=== PATIENT | female | born 1970 | race African-American/Black ===

== ENCOUNTER → 2018-04-24 | Outpatient (CLI) | payer OTHER | END | disposition home or self-care (01) | LOC: PF 10:35 | DX: J45.909 Unspecified asthma, uncomplicated (principal) | CPT/HCPCS: 94010 ==

== ENCOUNTER 2018-07-12 08:22 | Inpatient (IN) | payer OTHER ==
[~2018-07-12] VITALS: Ht 160 cm; Wt 108.9 kg
[2018-07-12] MEDS ORDERED: LISI1TAB3 PO (08:52)
[2018-07-12] MEDS ORDERED: OXCA300T19 PO ×2 (08:52→15:53)
[2018-07-12] MEDS ORDERED: TOPI25TA7 PO (08:52)
--- NOTE | 2018-07-12 09:12 | PHYS DOC ---
Past Medical History Past Medical History: Hypertension, Seizure Additional Past Medical Histor: ulcers Past Surgical History: Smoking: Cigarettes Alcohol Use: None Drug Use: None Adult General Chief Complaint Chief Complaint: ABDOMINAL PAIN HPI HPI 47-year-old female presents to ER via EMS for complaints of increase in abdominal pain which started in January of this year. Patient reports today she has had 2 episodes of vomiting and 2 episodes of diarrhea. Patient denies urinary symptoms, fever or chills, chest pain, or palpitations. She reports she has been feeling bloated in abd in past couple of days. She denies any lower back pain. Pt reports is premenopausal and LMP was 05/14. She is 1/2ppd cigarette smoker. She denies etoh/illicit drugs. RN reports pt had told her she is scheduled for scope in July as pt has hx of ulcers and this was scheduled for further eval. Review of Systems Review of Systems Constitutional: Denies fever or chills [] Eyes: Denies change in visual acuity, redness, or eye pain [] HENT: Denies nasal congestion or sore throat [] Respiratory: Denies cough or shortness of breath [] Cardiovascular: Denies CP/palpitations GI: Denies bloody stools. Reports mid abd pain with N/V/D and abd bloating : Denies dysuria or hematuria [] Musculoskeletal: Denies back pain or joint pain [] Integument: Denies swelling, rash or skin lesions [] Neurologic: Denies headache, focal weakness or sensory changes [] All other systems were reviewed and found to be within normal limits, except as documented in this note. Current Medications Current Medications Current Medications Medications (Trade) Dose Ordered Sig/Ashia Start Time Stop Time Status Last Admin Dose Admin Dicyclomine HCl (Bentyl) 20 mg 1X ONCE 07/12/18 09:15 07/12/18 09:16 DC 07/12/18 10:44 20 MG Info (CONTRAST GIVEN -- Rx MONITORING) 1 each PRN DAILY PRN 07/12/18 10:45 07/14/18 10:44 Iohexol (Omnipaque 300 Mg/ml) 75 ml 1X ONCE 07/12/18 10:30 07/12/18 10:32 DC 07/12/18 10:30 60 ML Ondansetron HCl (Zofran) 4 mg 1X ONCE 07/12/18 09:15 07/12/18 09:16 DC 07/12/18 09:43 4 MG Sodium Chloride 1,000 ml @ 1,000 mls/hr 1X ONCE 07/12/18 09:15 07/12/18 10:14 DC 07/12/18 09:37 1,000 MLS/HR Allergies Allergies Allergies Coded Allergies Type Severity Reaction Last Updated Verified No Known Drug Allergies 07/12/18 No Physical Exam Physical Exam Constitutional: Well developed, well nourished, no acute distress, non-toxic appearance. Appears fatigued on initial exam- clear speech HENT: Normocephalic, atraumatic, bilateral ears normal,mucous membranes pink/ moist, no oral exudates, nose normal. [] Eyes: PERRLA, no nystagmus, conjunctiva normal, no discharge. [] Neck: Normal range of motion, no tenderness, supple Cardiovascular:Heart rate regular rhythm, no murmur [] Lungs & Thorax: Bilateral breath sounds clear to auscultation. Resp. equal/ nonlabored Abdomen: Bowel sounds normal, soft/obese- no distention/rigidity, diffuse tenderness in all abd with increased c/o pain mid umbilical, no rebound tenderness, no masses, no pulsatile masses. [] Skin: Warm, dry, no erythema, no rash. [] Back: No tenderness, no CVA tenderness. [] Extremities: No tenderness, no cyanosis, no clubbing, ROM intact, no edema. [] Neurologic: Alert and oriented X 3, normal motor function, normal sensory function, no focal deficits noted. [] Psychologic: Affect normal, judgement normal, mood normal. [] Current Patient Data Vital Signs Vital Signs Date Time Temp Pulse Resp B/P (MAP) Pulse Ox O2 Delivery O2 Flow Rate FiO2 07/12/18 08:52 97.8 103 20 137/82 (100) 99 Room Air 97.8 Lab Values Laboratory Tests Test 07/12/18 09:55 07/12/18 10:34 07/12/18 10:47 White Blood Count 19.9 x10^3/uL (4.0-11.0) H Red Blood Count 4.88 x10^6/uL (3.50-5.40) Hemoglobin 12.9 g/dL (12.0-15.5) Hematocrit 38.2 % (36.0-47.0) Mean Corpuscular Volume 78 fL (79-100) L Mean Corpuscular Hemoglobin 26 pg (25-35) Mean Corpuscular Hemoglobin Concent 34 g/dL (31-37) Red Cell Distribution Width 17.7 % (11.5-14.5) H Platelet Count 340 x10^3/uL (140-400) Neutrophils (%) (Auto) 91 % (31-73) H Lymphocytes (%) (Auto) 6 % (24-48) L Monocytes (%) (Auto) 3 % (0-9) Eosinophils (%) (Auto) 1 % (0-3) Basophils (%) (Auto) 0 % (0-3) Neutrophils # (Auto) 18.1 x10^3uL (1.8-7.7) H Lymphocytes # (Auto) 1.1 x10^3/uL (1.0-4.8) Monocytes # (Auto) 0.5 x10^3/uL (0.0-1.1) Eosinophils # (Auto) 0.1 x10^3/uL (0.0-0.7) Basophils # (Auto) 0.1 x10^3/uL (0.0-0.2) Segmented Neutrophils % 79 % (35-66) H Band Neutrophils % 15 % (0-9) H Lymphocytes % 4 % (24-48) L Monocytes % 2 % (0-10) Platelet Estimate Adequate (ADEQUATE) Polychromasia Slight Anisocytosis Slight Microcytosis Slight Sodium Level 141 mmol/L (136-145) Potassium Level 3.3 mmol/L (3.5-5.1) L Chloride Level 105 mmol/L (98-107) Carbon Dioxide Level 23 mmol/L (21-32) Anion Gap 13 (6-14) Blood Urea Nitrogen 15 mg/dL (7-20) Creatinine 1.3 mg/dL (0.6-1.0) H Estimated GFR (Cockcroft-Gault) 53.6 BUN/Creatinine Ratio 12 (6-20) Glucose Level 147 mg/dL (70-99) H Lactic Acid Level 1.7 mmol/L (0.4-2.0) Calcium Level 10.0 mg/dL (8.5-10.1) Magnesium Level 2.5 mg/dL (1.8-2.4) H Total Bilirubin 0.2 mg/dL (0.2-1.0) Aspartate Amino Transferase (AST) 12 U/L (15-37) L Alanine Aminotransferase (ALT) 17 U/L (14-59) Alkaline Phosphatase 135 U/L (46-116) H Total Protein 8.4 g/dL (6.4-8.2) H Albumin 3.7 g/dL (3.4-5.0) Albumin/Globulin Ratio 0.8 (1.0-1.7) L Lipase 169 U/L (73-393) Urine Collection Type Unknown Urine Color Yellow Urine Clarity Cloudy Urine pH 6.0 Urine Specific Sidney >=1.030 Urine Protein 100 mg/dL (NEG-TRACE) Urine Glucose (UA) Negative mg/dL (NEG) Urine Ketones (Stick) Trace mg/dL (NEG) Urine Blood Negative (NEG) Urine Nitrite Negative (NEG) Urine Bilirubin Small (NEG) Urine Urobilinogen Dipstick 1.0 mg/dL (0.2 mg/dL) Urine Leukocyte Esterase Small (NEG) Urine RBC 1-2 /HPF (0-2) Urine WBC 11-20 /HPF (0-4) Urine Squamous Epithelial Cells Many /LPF Urine Bacteria Many /HPF (0-FEW) Urine Mucus Marked /LPF POC Urine HCG, Qualitative Hcg negative (Negative) Laboratory Tests 07/12/18 09:55 Laboratory Tests 07/12/18 09:55 EKG EKG [] Radiology/Procedures Radiology/Procedures CT of the abdomen and pelvis with IV contrast, 07/12/2015: HISTORY: Abdominal pain, nausea and vomiting Multidetector CT imaging was performed following an IV bolus injection of iodinated contrast material. No oral contrast material was administered for this study. No hepatic abnormality is detected. There are small foci of increased density within the dependent aspect of the gallbladder compatible with gallstones. No gallbladder wall thickening or pericholecystic edema is seen. The pancreas is unremarkable. The spleen is of normal size. It contains multiple calcified granulomata. There are 2 intrarenal calculi in the lower pole of the left kidney. The largest of these measures 1 cm. The renal collecting systems and ureters are not dilated. There is a low-density lesion in the lateral aspect of the right kidney measuring approximately 1.[address] number is 25-30 Hounsfield units which is higher than a simple cyst. This is probably a complicated cyst, although a low-density solid mass cannot be entirely excluded. There are several other smaller subcentimeter lesions in both kidneys which are too small to characterize, but are probably cysts. The abdominal aorta is unremarkable. No abdominal or pelvic adenopathy is seen. The uterus is enlarged and contains several masses with irregular rim-like calcification. The appearance is that of a fibroid uterus. There is mural thickening involving the colon at the level of the ileocecal valve and proximal ascending colon. The appendix is not clearly visualized. A dilated appendix is not evident. Several mildly enlarged mesenteric lymph nodes are noted in this region. The small bowel loops proximal to this level are mildly prominent and fluid-filled. No free air is evident in the abdomen. There does appear to be a small amount of free fluid in the pelvis. There is a small umbilical hernia containing only fat. IMPRESSION: 1. Mural thickening involving the colon in the ileocecal valve region raising the possibility of colonic malignancy. An inflammatory process cannot be excluded. There is mild associated dilatation of the distal small bowel and mild mesenteric adenopathy at this level. 2. Small amount of free fluid in the pelvis. 3. Cholelithiasis. 4. Nonobstructing left intrarenal calculi. 5. Enlarged fibroid uterus. 6. Probable renal cysts. PQRS Compliance Statement: One or more of the following individualized dose reduction techniques were utilized for this examination: 1. Automated exposure control 2. Adjustment of the mA and/or kV according to patient size 3. Use of iterative reconstruction technique Electronically signed by: Bam Lorenzana MD (07/12/2018 11:47 AM) [facility] DICTATED and SIGNED BY: BAM LORENZANA MD DATE: 07/12/18 1129 Course & Med Decision Making Course & Med Decision Making Pertinent Labs and Imaging studies reviewed. (See chart for details) 1218: Discussed test results with patient along with CT results with thickening in colon w/dilation of distal sm. bowel and mild mesenteric adenopathy, sm. amt of free fld in pelvis, cholelithiasis, and nonobstructing lt intrarenal calculi. WBCs were elevated at 19.9 with 15 bands- lactic acid NL at 1.7- UA neg. nitrates/blood sm. leuks w/11-20 WBCs. Neg. HCG. Discussed admission and pt is agreeable with plan. Will start IV Flagyl and Cipro. Pt remains nontoxic in appearance with BP 138/65 HR 98. Patient has had no episodes of vomiting while in the ER but has been incontinent of diarrhea. Spoke with Dr. Ryan, hospitalist and discussed pt's case and admission plan. Dragon Disclaimer Dragon Disclaimer This electronic medical record was generated, in whole or in part, using a voice recognition dictation system. Departure Departure Impression: Primary Impression: Abdominal pain Additional Impressions: Leukocytosis Bandemia Nausea vomiting and diarrhea UTI (urinary tract infection) Disposition: ADMITTED INPATIENT Admitting Physician: Letitia Ryan Condition: STABLE Referrals: JOSE ANGEL BLOOM (PCP) Problem Qualifiers [facility]ERT [facility] [employer] Jul 12, 2018 09:12
[2018-07-12] MEDS ORDERED: ONDANSETRON PF 4 MG/2 ML VIAL. IV ONE (09:15)
[2018-07-12] MEDS ORDERED: IV NORMAL SALINE 1000ML BAG 1,000 ML IV ONE (09:15)
[2018-07-12] MEDS ORDERED: DICYCLOMINE 20 MG/2 ML AMPUL. IM ONE (09:15)
[2018-07-12 10:01] LABS: BASO # 0.1 x10^3/uL (0.0-0.2); BASO % 0 % (0-3); EOS # 0.1 x10^3/uL (0.0-0.7); EOS % 1 % (0-3); HEMATOCRIT 38.2 % (36.0-47.0); HEMOGLOBIN 12.9 g/dL (12.0-15.5); LYMPH # 1.1 x10^3/uL (1.0-4.8); LYMPH % 6 % (24-48); MEAN CORPUSCULAR HEMOGLOBIN 26 pg (25-35); MEAN CORPUSCULAR HGB CONC 34 g/dL (31-37); MEAN CORPUSCULAR VOLUME 78 fL (79-100); MONO # 0.5 x10^3/uL (0.0-1.1); MONO % 3 % (0-9); NEUT # 18.1 x10^3uL (1.8-7.7); NEUT % 91 % (31-73); PLATELET COUNT 340 x10^3/uL (140-400); RED BLOOD COUNT 4.88 x10^6/uL (3.50-5.40); RED CELL DISTRIBUTION WIDTH 17.7 % (11.5-14.5); WHITE BLOOD COUNT 19.9 x10^3/uL (4.0-11.0)
[2018-07-12 10:26] LABS: CREATININE 1.3 mg/dL (0.6-1.0); GFR 53.6; POTASSIUM 3.3 mmol/L (3.5-5.1)
[2018-07-12 10:28] LABS: ALBUMIN 3.7 g/dL (3.4-5.0); ALBUMIN/GLOBULIN RATIO 0.8 (1.0-1.7); MAGNESIUM 2.5 mg/dL (1.8-2.4); TOTAL BILIRUBIN 0.2 mg/dL (0.2-1.0); TOTAL PROTEIN 8.4 g/dL (6.4-8.2)
[2018-07-12] MEDS ORDERED: IOHEXOL 300 MG/ML 100ML VIAL. IV ONE (10:30)
[2018-07-12] MEDS ORDERED: CONTRAST GIVEN. MC PRN (10:45)
[2018-07-12 10:59] LABS: BILIRUBIN,URINE SMALL (NEG); CLARITY,URINE CLOUDY; COLOR,URINE YELLOW; NITRITE,URINE NEGATIVE (NEG); PROTEIN,URINE 100 mg/dL (NEG-TRACE)
[2018-07-12 11:06] LABS: SQUAMOUS EPITHELIAL CELL,UR MANY /LPF
[2018-07-12 11:07] LABS: BACTERIA,URINE MANY /HPF (0-FEW)
[2018-07-12 11:26] LABS: % BANDS 15 % (0-9); % MONOS 2 % (0-10)
[2018-07-12 11:27] LABS: % LYMPHS 4 % (24-48); % SEGS 79 % (35-66); ANISOCYTOSIS SLIGHT; MICROCYTOSIS SLIGHT; PLT ESTIMATE ADEQUATE (ADEQUATE); POLYCHROMASIA SLIGHT
--- NOTE | 2018-07-12 11:51 | RAD ---
CT of the abdomen and pelvis with IV contrast, 07/12/2015: HISTORY: Abdominal pain, nausea and vomiting Multidetector CT imaging was performed following an IV bolus injection of iodinated contrast material. No oral contrast material was administered for this study. No hepatic abnormality is detected. There are small foci of increased density within the dependent aspect of the gallbladder compatible with gallstones. No gallbladder wall thickening or pericholecystic edema is seen. The pancreas is unremarkable. The spleen is of normal size. It contains multiple calcified granulomata. There are 2 intrarenal calculi in the lower pole of the left kidney. The largest of these measures 1 cm. The renal collecting systems and ureters are not dilated. There is a low-density lesion in the lateral aspect of the right kidney measuring approximately 1.[address] number is 25-30 Hounsfield units which is higher than a simple cyst. This is probably a complicated cyst, although a low-density solid mass cannot be entirely excluded. There are several other smaller subcentimeter lesions in both kidneys which are too small to characterize, but are probably cysts. The abdominal aorta is unremarkable. No abdominal or pelvic adenopathy is seen. The uterus is enlarged and contains several masses with irregular rim-like calcification. The appearance is that of a fibroid uterus. There is mural thickening involving the colon at the level of the ileocecal valve and proximal ascending colon. The appendix is not clearly visualized. A dilated appendix is not evident. Several mildly enlarged mesenteric lymph nodes are noted in this region. The small bowel loops proximal to this level are mildly prominent and fluid-filled. No free air is evident in the abdomen. There does appear to be a small amount of free fluid in the pelvis. There is a small umbilical hernia containing only fat. IMPRESSION: 1. Mural thickening involving the colon in the ileocecal valve region raising the possibility of colonic malignancy. An inflammatory process cannot be excluded. There is mild associated dilatation of the distal small bowel and mild mesenteric adenopathy at this level. 2. Small amount of free fluid in the pelvis. 3. Cholelithiasis. 4. Nonobstructing left intrarenal calculi. 5. Enlarged fibroid uterus. 6. Probable renal cysts. PQRS Compliance Statement: One or more of the following individualized dose reduction techniques were utilized for this examination: 1. Automated exposure control 2. Adjustment of the mA and/or kV according to patient size 3. Use of iterative reconstruction technique Electronically signed by: Yunior Lorenzana MD (07/12/2018 11:47 AM) [facility]
--- NOTE | 2018-07-12 13:17 | HP ---
ADMIT DATE: 07/12/2018 CHIEF COMPLAINT: Abdominal pain. HISTORY OF PRESENT ILLNESS: The patient is a pleasant 47-year-old female who presented to the Emergency Room with abdominal pain. We scanned her belly. She appears to have colitis. We are going to admit the patient and consult GI. It should be noted that she has associated nausea, vomiting, diarrhea that has been occurring off and on for a couple of days, rated at 10/10. PAST MEDICAL HISTORY: Obesity, hypertension, hyperlipidemia, allergic rhinitis, , tobacco abuse. ALLERGIES: CODEINE. FAMILY HISTORY: Diabetes. SOCIAL HISTORY: She smokes. No drink or drugs. She states she is disabled and takes care of her son. MEDICATIONS: Reviewed, please refer to the MRAD. REVIEW OF SYSTEMS: GENERAL: No history of weight change, weakness or fevers. SKIN: No bruising, hair changes or rashes. EYES: No blurred, double or loss of vision. NOSE AND THROAT: No history of nosebleeds, hoarseness or sore throat. HEART: No history of palpitations, chest pain or shortness of breath on exertion. LUNGS: Denies cough, hemoptysis, wheezing or shortness of breath. GASTROINTESTINAL: She complains of abdominal pain. GENITOURINARY: No history of frequency, urgency, hesitancy or nocturia. NEUROLOGIC: Denies history of numbness, tingling, tremor or weakness. PSYCHIATRIC: No history of panic, anxiety or depression. ENDOCRINE: No history of heat or cold intolerance, polyuria or polydipsia. EXTREMITIES: Denies muscle weakness, joint pain, pain on walking or stiffness. PHYSICAL EXAMINATION: VITAL SIGNS: Temperature afebrile, pulse 100, respirations 20, blood pressure 137/82. GENERAL: She is alert, cooperative in the ER. HEART: Normal S1, S2. LUNGS: Clear. ABDOMEN: Soft and tender. EXTREMITIES: Trace edema. SKIN: No rash. ENDOCRINE: No thyromegaly. LYMPHATICS: No cervical nodes. HEMATOPOIETIC: No bruising. LABORATORY DATA: White count is 20. Potassium is 3.3. CT shows colitis, maybe even a malignancy. ASSESSMENT AND PLAN: Colitis. The patient is being admitted. We will start IV antibiotics. Consult GI. Replace her potassium. Home meds, IV fluids. MARA TALBERT DO DR: Sang JOB#: [id number] / [id number]
[2018-07-12] MEDS: CIPROFLOXACIN 400MG PREMIX 200 ML IV SCH ×3 (13:30→23:00)
[2018-07-12] MEDS ORDERED: CETI10TA22 PO (15:53)
[2018-07-12] MEDS ORDERED: LUBI8CAP4 PO (15:53)
[2018-07-12] MEDS ORDERED: POLY17PO29 PO (15:53)
[2018-07-12] MEDS ORDERED: TOPI100T8 PO (15:53)
[2018-07-12] MEDS ORDERED: ATOR20TA58 PO (15:53)
[2018-07-12] MEDS: CETIRIZINE HCL 10 MG TABLET. PO SCH (18:04)
[2018-07-12 19:00] VITALS: BP 92/46
[2018-07-12] MEDS ORDERED: KETOROLAC 30 MG/ML VIAL. IV PRN (20:00)
[2018-07-12] MEDS: OXcarbazepine 300 MG TABLET PO SCH (20:23)
[2018-07-12] MEDS: TOPIRAMATE 25 MG TABLET. PO SCH (20:24)
[2018-07-12] MEDS: LUBIPROSTONE 8 MCG CAPSULE PO SCH ×3 (20:24→21:00)
[2018-07-12] MEDS: POLYETHYLENE GLYCOL 3350 17 GM PACKET. PO SCH (20:25)
[2018-07-12] MEDS: ATORVASTATIN CALCIUM 20 MG TABLET PO SCH ×3 (20:34→23:03)
[2018-07-12] MEDS: MORPHINE SULFATE 2 MG/ML VIAL. IV PRN (20:50)
[2018-07-12 23:00] VITALS: BP 98/59
[2018-07-13 02:40] VITALS: BP 92/57
[2018-07-13 06:30] LABS: BASO % 0 % (0-3); EOS # 0.2 x10^3/uL (0.0-0.7); EOS % 2 % (0-3); HEMATOCRIT 30.9 % (36.0-47.0); HEMOGLOBIN 10.1 g/dL (12.0-15.5); LYMPH # 1.8 x10^3/uL (1.0-4.8); LYMPH % 20 % (24-48); MEAN CORPUSCULAR HEMOGLOBIN 26 pg (25-35); MEAN CORPUSCULAR HGB CONC 33 g/dL (31-37); MEAN CORPUSCULAR VOLUME 78 fL (79-100); MONO # 0.5 x10^3/uL (0.0-1.1); MONO % 5 % (0-9); NEUT # 6.5 x10^3uL (1.8-7.7); NEUT % 72 % (31-73); PLATELET COUNT 276 x10^3/uL (140-400); RED BLOOD COUNT 3.94 x10^6/uL (3.50-5.40); RED CELL DISTRIBUTION WIDTH 17.8 % (11.5-14.5)
[2018-07-13 07:00] VITALS: BP 112/69
[2018-07-13 07:00] LABS: ALBUMIN/GLOBULIN RATIO 0.8 (1.0-1.7); CALCIUM 9.5 mg/dL (8.5-10.1); CREATININE 1.1 mg/dL (0.6-1.0); POTASSIUM 3.2 mmol/L (3.5-5.1); TOTAL BILIRUBIN 0.2 mg/dL (0.2-1.0)
[2018-07-13] MEDS: CETIRIZINE HCL 10 MG TABLET. PO SCH (08:23)
[2018-07-13] MEDS: OXcarbazepine 300 MG TABLET PO SCH ×2 (08:23→21:33)
[2018-07-13] MEDS: LUBIPROSTONE 8 MCG CAPSULE PO SCH (08:23)
[2018-07-13] MEDS: LACTOBACILLUS RHAMNOSUS GG 1 CAPSULE. PO SCH ×2 (08:23→21:33)
[2018-07-13] MEDS: LISINOPRIL 10 MG TABLET PO SCH (08:24)
[2018-07-13] MEDS: hydroCHLOROthiazide 12.5 MG CAPSULE PO SCH (08:24)
[2018-07-13] MEDS: TOPIRAMATE 25 MG TABLET. PO SCH ×2 (08:24→21:33)
[2018-07-13] MEDS: POLYETHYLENE GLYCOL 3350 17 GM PACKET. PO SCH ×3 (08:29→21:00)
[2018-07-13] MEDS ORDERED: LOPERAMIDE 2 MG CAPSULE PO PRN (08:45)
[2018-07-13] MEDS ORDERED: POTASSIUM CHLORIDE 20 MEQ TABLET.ER. PO ONE (08:45)
[2018-07-13] MEDS ORDERED: IV NORMAL SALINE 1000ML BAG 1,000 ML IV ONE (09:00)
[2018-07-13 11:00] VITALS: BP 109/60
[2018-07-13] MEDS: CIPROFLOXACIN 400MG PREMIX 200 ML IV SCH ×2 (11:50→23:00)
[2018-07-13 15:00] VITALS: BP 107/62
[2018-07-13] MEDS: MORPHINE SULFATE 2 MG/ML VIAL. IV PRN (16:10)
--- NOTE | 2018-07-13 16:36 | PDOC2 ---
GI CONSULT Reason For Consult: abnormal CT HPI: HPI: 47-year-old female presents to ER via EMS for complaints of increase in abdominal pain which started in January of this year. She was seen by her PCP at who prescribed a med for 3 months to treat presumed ulcers. her symptoms did not improve. She was seen by GI who ordered unremarkable plain films. She is scheduled for EGD/Colon at in July Patient reports that she has had 2 episodes of vomiting and 2 episodes of diarrhea on DOA. Patient denies urinary symptoms, fever or chills, chest pain , or palpitations. She reports she has been feeling bloated in abd in past couple of days. She denies any lower back pain. Pt reports is premenopausal and LMP was 05/14. Labs initially showed leukocytosis that has resolved. CT demonstrated CT of the abdomen and pelvis with IV contrast, 07/12/2015: Mural thickening involving the colon in the ileocecal valve region raising the possibility of colonic malignancy. An inflammatory process cannot be excluded. There is mild associated dilatation of the distal small bowel and mild mesenteric adenopathy at this level. Cholelithiasis. Nonobstructing left intrarenal calculi. Enlarged fibroid uterus. Probable renal cysts. PMH: PMH: Past Medical History Past Medical History: Hypertension, Seizure Additional Past Medical Histor: ulcers(presumed) Past Surgical History: FMH + CRC in her father in his 70s All ASA FH: Family History: Cancer Social History: Smoke: <1 pack per day ALCOHOL: none Drugs: None ROS: Review of Systems Review of Systems Constitutional: Denies fever or chills [] Eyes: Denies change in visual acuity, redness, or eye pain [] HENT: Denies nasal congestion or sore throat [] Respiratory: Denies cough or shortness of breath [] Cardiovascular: Denies CP/palpitations GI: Denies bloody stools. Reports mid abd pain with N/V/D and abd bloating : Denies dysuria or hematuria [] Musculoskeletal: Denies back pain or joint pain [] Integument: Denies swelling, rash or skin lesions [] Neurologic: Denies headache, focal weakness or sensory changes [] VItals: Vitals: Vital Signs Date Time Temp Pulse Resp B/P (MAP) Pulse Ox O2 Delivery O2 Flow Rate FiO2 9/16/18 16:10 Room Air 07/13/18 15:00 98.3 70 18 107/62 (77) 99 98.3 Labs: Labs: Laboratory Tests Test 07/13/18 05:15 White Blood Count 9.0 x10^3/uL (4.0-11.0) Red Blood Count 3.94 x10^6/uL (3.50-5.40) Hemoglobin 10.1 g/dL (12.0-15.5) Hematocrit 30.9 % (36.0-47.0) Mean Corpuscular Volume 78 fL (79-100) Mean Corpuscular Hemoglobin 26 pg (25-35) Mean Corpuscular Hemoglobin Concent 33 g/dL (31-37) Red Cell Distribution Width 17.8 % (11.5-14.5) Platelet Count 276 x10^3/uL (140-400) Neutrophils (%) (Auto) 72 % (31-73) Lymphocytes (%) (Auto) 20 % (24-48) Monocytes (%) (Auto) 5 % (0-9) Eosinophils (%) (Auto) 2 % (0-3) Basophils (%) (Auto) 0 % (0-3) Neutrophils # (Auto) 6.5 x10^3uL (1.8-7.7) Lymphocytes # (Auto) 1.8 x10^3/uL (1.0-4.8) Monocytes # (Auto) 0.5 x10^3/uL (0.0-1.1) Eosinophils # (Auto) 0.2 x10^3/uL (0.0-0.7) Basophils # (Auto) 0.0 x10^3/uL (0.0-0.2) Sodium Level 139 mmol/L (136-145) Potassium Level 3.2 mmol/L (3.5-5.1) Chloride Level 105 mmol/L (98-107) Carbon Dioxide Level 24 mmol/L (21-32) Anion Gap 10 (6-14) Blood Urea Nitrogen 11 mg/dL (7-20) Creatinine 1.1 mg/dL (0.6-1.0) Estimated GFR (Cockcroft-Gault) 65.0 BUN/Creatinine Ratio 10 (6-20) Glucose Level 98 mg/dL (70-99) Calcium Level 9.5 mg/dL (8.5-10.1) Total Bilirubin 0.2 mg/dL (0.2-1.0) Aspartate Amino Transf (AST/SGOT) 12 U/L (15-37) Alanine Aminotransferase (ALT/SGPT) 14 U/L (14-59) Alkaline Phosphatase 105 U/L (46-116) Total Protein 7.0 g/dL (6.4-8.2) Albumin 3.0 g/dL (3.4-5.0) Albumin/Globulin Ratio 0.8 (1.0-1.7) Imaging: Imaging: CT of the abdomen and pelvis with IV contrast, 07/12/2015: HISTORY: Abdominal pain, nausea and vomiting Multidetector CT imaging was performed following an IV bolus injection of iodinated contrast material. No oral contrast material was administered for this study. No hepatic abnormality is detected. There are small foci of increased density within the dependent aspect of the gallbladder compatible with gallstones. No gallbladder wall thickening or pericholecystic edema is seen. The pancreas is unremarkable. The spleen is of normal size. It contains multiple calcified granulomata. There are 2 intrarenal calculi in the lower pole of the left kidney. The largest of these measures 1 cm. The renal collecting systems and ureters are not dilated. There is a low-density lesion in the lateral aspect of the right kidney measuring approximately 1.[address] number is 25-30 Hounsfield units which is higher than a simple cyst. This is probably a complicated cyst, although a low-density solid mass cannot be entirely excluded. There are several other smaller subcentimeter lesions in both kidneys which are too small to characterize, but are probably cysts. The abdominal aorta is unremarkable. No abdominal or pelvic adenopathy is seen. The uterus is enlarged and contains several masses with irregular rim-like calcification. The appearance is that of a fibroid uterus. There is mural thickening involving the colon at the level of the ileocecal valve and proximal ascending colon. The appendix is not clearly visualized. A dilated appendix is not evident. Several mildly enlarged mesenteric lymph nodes are noted in this region. The small bowel loops proximal to this level are mildly prominent and fluid-filled. No free air is evident in the abdomen. There does appear to be a small amount of free fluid in the pelvis. There is a small umbilical hernia containing only fat. IMPRESSION: 1. Mural thickening involving the colon in the ileocecal valve region raising the possibility of colonic malignancy. An inflammatory process cannot be excluded. There is mild associated dilatation of the distal small bowel and mild mesenteric adenopathy at this level. 2. Small amount of free fluid in the pelvis. 3. Cholelithiasis. 4. Nonobstructing left intrarenal calculi. 5. Enlarged fibroid uterus. 6. Probable renal cysts. PE: GEN: NAD HEENT: Atraumatic, PERRLA LUNGS: CTAB HEART: RRR, no murmurs ABD: NABS, S/ND/TTO Epigastric and RUQ EXTREMITY: No edema SKIN: No rashes, no jaundice NEURO/PSYCH: A & O 3 A/P: A/P: A) 1) Epigastric and RUQ pain 2) Abnormal CT 3) Cholelithiasis 4) FMH CRC in father in his 70s 5) N/V P) 1) Favor EGD/Colon to eval. She has been on clear liquids in house and wants to see if the procedures can be done tomorrow, Will schedule and d/w ALDO Leslie nd, MD Jul 13, 2018 16:36
[2018-07-13] MEDS ORDERED: 0.9 % SODIUM CHLORIDE 10 ML DISP.SYRIN. IV PRN ×2 (16:45)
[2018-07-13] MEDS ORDERED: BISACODYL 5 MG TABLET.DR. PO ONE (17:00)
[2018-07-13 19:00] VITALS: BP 109/67
[2018-07-13] MEDS ORDERED: POLYETHYLENE GLYCOL 3350 238 GM POWDER PO ONE (19:00)
--- NOTE | 2018-07-13 21:11 | PDOC ---
PROGRESS NOTES Chief Complaint Chief Complaint Abdominal pain with abnormal CT (?malignancy?) Hypertension, Seizure ulcers(presumed) History of Present Illness History of Present Illness Pt seen and examined Dw RN GI note reviewed Vitals Vitals Vital Signs Date Time Temp Pulse Resp B/P (MAP) Pulse Ox O2 Delivery O2 Flow Rate FiO2 07/13/18 19:00 98.5 78 18 109/67 (81) 100 Room Air 98.5 Physical Exam General: Alert, Oriented X3 Heart: Regular rate, Normal S1, Normal S2 Lungs: Clear Abdomen: Normal bowel sounds Extremities: No clubbing, No cyanosis Skin: No rashes, No breakdown Labs LABS Laboratory Tests Test 07/13/18 05:15 White Blood Count 9.0 x10^3/uL (4.0-11.0) Red Blood Count 3.94 x10^6/uL (3.50-5.40) Hemoglobin 10.1 g/dL (12.0-15.5) Hematocrit 30.9 % (36.0-47.0) Mean Corpuscular Volume 78 fL (79-100) Mean Corpuscular Hemoglobin 26 pg (25-35) Mean Corpuscular Hemoglobin Concent 33 g/dL (31-37) Red Cell Distribution Width 17.8 % (11.5-14.5) Platelet Count 276 x10^3/uL (140-400) Neutrophils (%) (Auto) 72 % (31-73) Lymphocytes (%) (Auto) 20 % (24-48) Monocytes (%) (Auto) 5 % (0-9) Eosinophils (%) (Auto) 2 % (0-3) Basophils (%) (Auto) 0 % (0-3) Neutrophils # (Auto) 6.5 x10^3uL (1.8-7.7) Lymphocytes # (Auto) 1.8 x10^3/uL (1.0-4.8) Monocytes # (Auto) 0.5 x10^3/uL (0.0-1.1) Eosinophils # (Auto) 0.2 x10^3/uL (0.0-0.7) Basophils # (Auto) 0.0 x10^3/uL (0.0-0.2) Sodium Level 139 mmol/L (136-145) Potassium Level 3.2 mmol/L (3.5-5.1) Chloride Level 105 mmol/L (98-107) Carbon Dioxide Level 24 mmol/L (21-32) Anion Gap 10 (6-14) Blood Urea Nitrogen 11 mg/dL (7-20) Creatinine 1.1 mg/dL (0.6-1.0) Estimated GFR (Cockcroft-Gault) 65.0 BUN/Creatinine Ratio 10 (6-20) Glucose Level 98 mg/dL (70-99) Calcium Level 9.5 mg/dL (8.5-10.1) Total Bilirubin 0.2 mg/dL (0.2-1.0) Aspartate Amino Transf (AST/SGOT) 12 U/L (15-37) Alanine Aminotransferase (ALT/SGPT) 14 U/L (14-59) Alkaline Phosphatase 105 U/L (46-116) Total Protein 7.0 g/dL (6.4-8.2) Albumin 3.0 g/dL (3.4-5.0) Albumin/Globulin Ratio 0.8 (1.0-1.7) Review of Systems Review of Systems co abd pain co depression Assessment and Plan Assessmemt and Plan Problems Medical Problems: (1) Abdominal pain Status: Acute (2) Bandemia Status: Acute (3) Leukocytosis Status: Acute (4) Nausea vomiting and diarrhea Status: Acute (5) UTI (urinary tract infection) Status: Acute Abdominal pain with abnormal CT (?malignancy?) + Family H/O CRC Hypertension, Seizure ulcers(presumed) Plan EGD/Colonoscopy per Dr Baird PPI IV antibx to cover for possible colitis Labs Bowel probably already prepped as she pretty s been on clears Home meds Will order a CEA level Comment Review of Relevant I have reviewed the following items dawson (where applicable) has been applied. Labs Laboratory Tests Test 07/12/18 09:55 07/12/18 10:34 07/12/18 10:47 07/13/18 05:15 White Blood Count 19.9 x10^3/uL (4.0-11.0) 9.0 x10^3/uL (4.0-11.0) Red Blood Count 4.88 x10^6/uL (3.50-5.40) 3.94 x10^6/uL (3.50-5.40) Hemoglobin 12.9 g/dL (12.0-15.5) 10.1 g/dL (12.0-15.5) Hematocrit 38.2 % (36.0-47.0) 30.9 % (36.0-47.0) Mean Corpuscular Volume 78 fL (79-100) 78 fL (79-100) Mean Corpuscular Hemoglobin 26 pg (25-35) 26 pg (25-35) Mean Corpuscular Hemoglobin Concent 34 g/dL (31-37) 33 g/dL (31-37) Red Cell Distribution Width 17.7 % (11.5-14.5) 17.8 % (11.5-14.5) Platelet Count 340 x10^3/uL (140-400) 276 x10^3/uL (140-400) Neutrophils (%) (Auto) 91 % (31-73) 72 % (31-73) Lymphocytes (%) (Auto) 6 % (24-48) 20 % (24-48) Monocytes (%) (Auto) 3 % (0-9) 5 % (0-9) Eosinophils (%) (Auto) 1 % (0-3) 2 % (0-3) Basophils (%) (Auto) 0 % (0-3) 0 % (0-3) Neutrophils # (Auto) 18.1 x10^3uL (1.8-7.7) 6.5 x10^3uL (1.8-7.7) Lymphocytes # (Auto) 1.1 x10^3/uL (1.0-4.8) 1.8 x10^3/uL (1.0-4.8) Monocytes # (Auto) 0.5 x10^3/uL (0.0-1.1) 0.5 x10^3/uL (0.0-1.1) Eosinophils # (Auto) 0.1 x10^3/uL (0.0-0.7) 0.2 x10^3/uL (0.0-0.7) Basophils # (Auto) 0.1 x10^3/uL (0.0-0.2) 0.0 x10^3/uL (0.0-0.2) Segmented Neutrophils % 79 % (35-66) Band Neutrophils % 15 % (0-9) Lymphocytes % 4 % (24-48) Monocytes % 2 % (0-10) Platelet Estimate Adequate (ADEQUATE) Polychromasia Slight Anisocytosis Slight Microcytosis Slight Sodium Level 141 mmol/L (136-145) 139 mmol/L (136-145) Potassium Level 3.3 mmol/L (3.5-5.1) 3.2 mmol/L (3.5-5.1) Chloride Level 105 mmol/L (98-107) 105 mmol/L (98-107) Carbon Dioxide Level 23 mmol/L (21-32) 24 mmol/L (21-32) Anion Gap 13 (6-14) 10 (6-14) Blood Urea Nitrogen 15 mg/dL (7-20) 11 mg/dL (7-20) Creatinine 1.3 mg/dL (0.6-1.0) 1.1 mg/dL (0.6-1.0) Estimated GFR (Cockcroft-Gault) 53.6 65.0 BUN/Creatinine Ratio 12 (6-20) 10 (6-20) Glucose Level 147 mg/dL (70-99) 98 mg/dL (70-99) Lactic Acid Level 1.7 mmol/L (0.4-2.0) Calcium Level 10.0 mg/dL (8.5-10.1) 9.5 mg/dL (8.5-10.1) Magnesium Level 2.5 mg/dL (1.8-2.4) Total Bilirubin 0.2 mg/dL (0.2-1.0) 0.2 mg/dL (0.2-1.0) Aspartate Amino Transf (AST/SGOT) 12 U/L (15-37) 12 U/L (15-37) Alanine Aminotransferase (ALT/SGPT) 17 U/L (14-59) 14 U/L (14-59) Alkaline Phosphatase 135 U/L (46-116) 105 U/L (46-116) Total Protein 8.4 g/dL (6.4-8.2) 7.0 g/dL (6.4-8.2) Albumin 3.7 g/dL (3.4-5.0) 3.0 g/dL (3.4-5.0) Albumin/Globulin Ratio 0.8 (1.0-1.7) 0.8 (1.0-1.7) Lipase 169 U/L (73-393) Urine Collection Type Unknown Urine Color Yellow Urine Clarity Cloudy Urine pH 6.0 Urine Specific [place] >=1.030 Urine Protein 100 mg/dL (NEG-TRACE) Urine Glucose (UA) Negative mg/dL (NEG) Urine Ketones (Stick) Trace mg/dL (NEG) Urine Blood Negative (NEG) Urine Nitrite Negative (NEG) Urine Bilirubin Small (NEG) Urine Urobilinogen Dipstick 1.0 mg/dL (0.2 mg/dL) Urine Leukocyte Esterase Small (NEG) Urine RBC 1-2 /HPF (0-2) Urine WBC 11-20 /HPF (0-4) Urine Squamous Epithelial Cells Many /LPF Urine Bacteria Many /HPF (0-FEW) Urine Mucus Marked /LPF Bedside Urine HCG, Qualitative Hcg negative (Negative) Laboratory Tests Test 07/13/18 05:15 White Blood Count 9.0 x10^3/uL (4.0-11.0) Red Blood Count 3.94 x10^6/uL (3.50-5.40) Hemoglobin 10.1 g/dL (12.0-15.5) Hematocrit 30.9 % (36.0-47.0) Mean Corpuscular Volume 78 fL (79-100) Mean Corpuscular Hemoglobin 26 pg (25-35) Mean Corpuscular Hemoglobin Concent 33 g/dL (31-37) Red Cell Distribution Width 17.8 % (11.5-14.5) Platelet Count 276 x10^3/uL (140-400) Neutrophils (%) (Auto) 72 % (31-73) Lymphocytes (%) (Auto) 20 % (24-48) Monocytes (%) (Auto) 5 % (0-9) Eosinophils (%) (Auto) 2 % (0-3) Basophils (%) (Auto) 0 % (0-3) Neutrophils # (Auto) 6.5 x10^3uL (1.8-7.7) Lymphocytes # (Auto) 1.8 x10^3/uL (1.0-4.8) Monocytes # (Auto) 0.5 x10^3/uL (0.0-1.1) Eosinophils # (Auto) 0.2 x10^3/uL (0.0-0.7) Basophils # (Auto) 0.0 x10^3/uL (0.0-0.2) Sodium Level 139 mmol/L (136-145) Potassium Level 3.2 mmol/L (3.5-5.1) Chloride Level 105 mmol/L (98-107) Carbon Dioxide Level 24 mmol/L (21-32) Anion Gap 10 (6-14) Blood Urea Nitrogen 11 mg/dL (7-20) Creatinine 1.1 mg/dL (0.6-1.0) Estimated GFR (Cockcroft-Gault) 65.0 BUN/Creatinine Ratio 10 (6-20) Glucose Level 98 mg/dL (70-99) Calcium Level 9.5 mg/dL (8.5-10.1) Total Bilirubin 0.2 mg/dL (0.2-1.0) Aspartate Amino Transf (AST/SGOT) 12 U/L (15-37) Alanine Aminotransferase (ALT/SGPT) 14 U/L (14-59) Alkaline Phosphatase 105 U/L (46-116) Total Protein 7.0 g/dL (6.4-8.2) Albumin 3.0 g/dL (3.4-5.0) Albumin/Globulin Ratio 0.8 (1.0-1.7) Medications Current Medications Sodium Chloride 1,000 ml @ 1,000 mls/hr 1X ONCE IV Last administered on at 09:37; Start 07/12/18 at 09:15; Stop 07/12/18 at 10:14; Status DC Ondansetron HCl (Zofran) 4 mg 1X ONCE IV Last administered on 07/12/18at 09:43 ; Start 07/12/18 at 09:15; Stop 07/12/18 at 09:16; Status DC Dicyclomine HCl (Bentyl) 20 mg 1X ONCE IM Last administered on 07/12/18at 10:44 ; Start 07/12/18 at 09:15; Stop 07/12/18 at 09:16; Status DC Iohexol (Omnipaque 300 Mg/ml) 75 ml 1X ONCE IV Last administered on 07/12/18at 10:30; Start 07/12/18 at 10:30; Stop 07/12/18 at 10:32; Status DC Info (CONTRAST GIVEN -- Rx MONITORING) 1 each PRN DAILY PRN MC SEE COMMENTS; Start 07/12/18 at 10:45; Stop 07/14/18 at 10:44 Metronidazole 100 ml @ 100 mls/hr 1X ONCE IV Last administered on 07/12/18at 13:10; Start 07/12/18 at 12:30; Stop 07/12/18 at 13:29; Status DC Ciprofloxacin/ Dextrose 200 ml @ 200 mls/hr Q12HR IV Last administered on 07/12at 23:00; Start 07/12/18 at 13:30; Stop 07/13/18 at 08:57; Status DC Morphine Sulfate (Morphine Sulfate) 2 mg PRN Q2HR PRN IV SEVERE PAIN Last administered on 07/13/18at 16:10; Start 07/12/18 at 16:00 Atorvastatin Calcium (Lipitor) 20 mg HS PO Last administered on 07/12/18at 21:00 ; Start 07/12/18 at 21:00 Cetirizine HCl (ZyrTEC) 10 mg DAILY PO Last administered on 07/13/18at 08:23; Start 07/12/18 at 16:00 Lubiprostone (Amitiza) 8 mcg BID PO Last administered on 07/13/18at 08:23; Start 07/12/18 at 21:00; Stop 07/13/18 at 08:49; Status DC Lisinopril (Prinivil) 10 mg DAILY PO Last administered on 07/13/18at 08:24; Start 07/13/18 at 09:00 Oxcarbazepine (Trileptal) 300 mg BID PO Last administered on 07/13/18at 08:23; Start 07/12/18 at 21:00; Stop 07/13/18 at 11:19; Status DC Polyethylene Glycol (miraLAX PACKET) 17 gm BID PO Last administered on at 16:00; Start 07/12/18 at 21:00 Topiramate (Topamax) 100 mg BID PO Last administered on 07/13/18at 08:24; Start 07/12/18 at 21:00 Hydrochlorothiazide (Microzide) 12.5 mg DAILY PO Last administered on at 08:24; Start 07/13/18 at 09:00 Ketorolac Tromethamine (Toradol 30mg Vial) 30 mg PRN Q6HRS PRN IV MILD - MODERATE PAIN; Start 07/12/18 at 20:00; Stop 07/17/18 at 19:59 Lactobacillus Rhamnosus (Culturelle) 1 cap BID PO Last administered on at 08:23; Start 07/13/18 at 09:00 Ciprofloxacin/ Dextrose 200 ml @ 200 mls/hr Q12H IV Last administered on at 11:50; Start 07/13/18 at 11:00 Metronidazole 100 ml @ 100 mls/hr Q8HRS IV Last administered on 07/13/18at 16: 01; Start 07/13/18 at 09:00 Potassium Chloride (Klor-Con) 40 meq 1X ONCE PO Last administered on at 09:26; Start 07/13/18 at 08:45; Stop 07/13/18 at 08:52; Status DC Potassium Chloride (Klor-Con) 40 meq DAILYWBKFT PO ; Start 07/14/18 at 08:00 Loperamide HCl (Imodium) 2 mg PRN Q15MIN PRN PO DIARRHEA; Start 07/13/18 at 08: 45 Ondansetron HCl (Zofran) 4 mg PRN Q6HRS PRN IV NAUSEA/VOMITING; Start 07/13/18 at 08:45 Ondansetron HCl (Zofran Odt) 4 mg PRN Q6HRS PRN PO NAUSEA/VOMITING; Start 07/13 at 08:45 Acetaminophen (Tylenol) 500 mg PRN Q6HRS PRN PO MILD PAIN / TEMP; Start at 08:45 Acetaminophen/ Hydrocodone Bitart (Lortab 5/325) 1 tab PRN Q4HRS PRN PO PAIN MODERATE TO SEVERE; Start 07/13/18 at 08:45 Sodium Chloride 1,000 ml @ 100 mls/hr 1X ONCE IV Last administered on at 09:33; Start 07/13/18 at 09:00; Stop 07/13/18 at 18:59; Status DC Oxcarbazepine (Trileptal) 900 mg BID PO ; Start 07/13/18 at 21:00 Bisacodyl (Dulcolax Tab) 10 mg 1X ONCE PO Last administered on 07/13/18at 17:07 ; Start 07/13/18 at 17:00; Stop 07/13/18 at 17:01; Status DC Polyethylene Glycol (miraLAX Powder BULK BOTTLE) 238 gm 1X ONCE PO Last administered on 07/13/18at 19:35; Start 07/13/18 at 19:00; Stop 07/13/18 at 19:01 ; Status DC Sodium Chloride (Normal Saline Flush) 3 ml QSHIFT PRN IV AFTER MEDS AND BLOOD DRAWS; Start 07/13/18 at 16:45 Sodium Chloride (Normal Saline Flush) 3 ml QSHIFT PRN IV AFTER MEDS AND BLOOD DRAWS; Start 07/13/18 at 16:45; Status UNV Active Scripts Active Reported Amitiza (Lubiprostone) 8 Mcg Capsule 1 Cap PO BID Miralax (Polyethylene Glycol 3350) 17 Gm Powd.pack 1 Packet PO BID Zyrtec (Cetirizine Hcl) 10 Mg Tablet 1 Tab PO DAILY Atorvastatin Calcium 20 Mg Tablet 20 Mg PO HS Topiramate 100 Mg Tablet 1 Tab PO BID Oxcarbazepine 300 Mg Tablet 1 Tab PO BID Lisinopril-Hctz 10-12.5 Mg Tab (Lisinopril/Hydrochlorothiazide) 1 Each Tablet 1 Tab PO DAILY Vitals/I & O Vital Sign - Last 24 Hours 07/12/18 07/13/18 07/13/18 07/13/18 23:00 02:40 07:00 08:00 Temp 98.8 98.1 98.0 98.8 98.1 98.0 Pulse 90 83 77 Resp 18 18 18 B/P (MAP) 98/59 (72) 92/57 (69) 112/69 (83) Pulse Ox 95 100 98 O2 Delivery Room Air Room Air Room Air Room Air 07/13/18 07/13/18 07/13/18 07/13/18 08:24 11:00 15:00 16:10 Temp 98.3 98.3 98.3 98.3 Pulse 77 67 70 Resp 18 18 B/P (MAP) 112/69 109/60 (76) 107/62 (77) Pulse Ox 98 99 O2 Delivery Room Air Room Air Room Air 07/13/18 07/13/18 16:40 19:00 Temp 98.5 98.5 Pulse 78 Resp 18 B/P (MAP) 109/67 (81) Pulse Ox 100 O2 Delivery Room Air Room Air Intake and Output 07/12/18 07/12/18 07/13/18 15:00 23:00 07:00 Intake Total 1000 ml 600 ml Balance 1000 ml 600 ml MARA TALBERT III DO Jul 13, 2018 21:11
[2018-07-13] MEDS: ATORVASTATIN CALCIUM 20 MG TABLET PO SCH (21:33)
[2018-07-13 23:00] VITALS: BP 115/74
[2018-07-14 03:00] VITALS: BP 96/62
[2018-07-14] MEDS ORDERED: BENZOCAINE ONE 20% MUCOSAL SPRAY. (07:58)
[2018-07-14] MEDS ORDERED: MIDAZOLAM HCL/PF 5 MG/5 ML VIAL. ONE (07:59)
[2018-07-14] MEDS ORDERED: fentaNYL PF VIAL 100 MCG/2 ML VIAL ONE (07:59)
[2018-07-14] MEDS ORDERED: LIDOCAINE 2% PF Vial for OR 5 ML VIAL. ONE (08:34)
[2018-07-14] MEDS ORDERED: PROPOFOL 40 ML IV ONE (08:34)
--- NOTE | 2018-07-14 08:44 | PDOC4 ---
PROCEDURE Procedure EGD nausea and vomiting Anesthesia- propofol Findings- normal esophagus, mild gastritis in antrum, umbilicated nodule in antrum c/w pancreatic rest- no ulcer or bleeding seen; mild duodenitis without ulcer or erosions Plan- PPI, check bx, proceed with colonoscopy- no obvious source for symptoms found MITCHELL GONZALEZ MD Jul 14, 2018 08:44
--- NOTE | 2018-07-14 09:05 | PDOC4 ---
PROCEDURE Procedure Colonoscopy abn CT diarrhea, abd pain, fam hx of CRC anesthesia with propofol Findings- ulcerated mass (3 cm) in cecum near IC valve- partially obstructing - bx, frozen section and tattoo Plan- CLD or NPO Surgery consult MITCHELL GONZALEZ MD Jul 14, 2018 09:05
--- NOTE | 2018-07-14 09:27 | PDOC ---
PROGRESS NOTES Chief Complaint Chief Complaint ABd pain MUral thickening, - Colitis versus malignancy 3. Cholelithiasis. 4. Nonobstructing left intrarenal calculi. 5. Enlarged fibroid uterus. 6. Probable renal cysts. History of Present Illness History of Present Illness Out having EGD and colonoscopy-given abdominal pain and CAT scan findings below and per patient request CAT scan: 1. Mural thickening involving the colon in the ileocecal valve region raising the possibility of colonic malignancy. An inflammatory process cannot be excluded. There is mild associated dilatation of the distal small bowel and mild mesenteric adenopathy at this level. 2. Small amount of free fluid in the pelvis. 3. Cholelithiasis. 4. Nonobstructing left intrarenal calculi. 5. Enlarged fibroid uterus. 6. Probable renal cysts. Vitals Vitals Vital Signs Date Time Temp Pulse Resp B/P (MAP) Pulse Ox O2 Delivery O2 Flow Rate FiO2 07/14/18 09:08 97.0 72 18 90/53 99 Room Air 97.0 Physical Exam General: Alert, Oriented X3 Heart: Regular rate, Normal S1, Normal S2 Lungs: Clear Abdomen: Normal bowel sounds Extremities: No clubbing, No cyanosis Skin: No rashes, No breakdown Review of Systems Review of Systems Out having EGD colonoscopy Assessment and Plan Assessmemt and Plan Problems Medical Problems: (1) Abdominal pain Status: Acute (2) Bandemia Status: Acute (3) Leukocytosis Status: Acute (4) Nausea vomiting and diarrhea Status: Acute (5) UTI (urinary tract infection) Status: Acute Comment Review of Relevant I have reviewed the following items dawson (where applicable) has been applied. Labs Laboratory Tests Test 07/12/18 09:55 07/12/18 10:34 07/12/18 10:47 07/13/18 05:15 White Blood Count 19.9 x10^3/uL (4.0-11.0) 9.0 x10^3/uL (4.0-11.0) Red Blood Count 4.88 x10^6/uL (3.50-5.40) 3.94 x10^6/uL (3.50-5.40) Hemoglobin 12.9 g/dL (12.0-15.5) 10.1 g/dL (12.0-15.5) Hematocrit 38.2 % (36.0-47.0) 30.9 % (36.0-47.0) Mean Corpuscular Volume 78 fL (79-100) 78 fL (79-100) Mean Corpuscular Hemoglobin 26 pg (25-35) 26 pg (25-35) Mean Corpuscular Hemoglobin Concent 34 g/dL (31-37) 33 g/dL (31-37) Red Cell Distribution Width 17.7 % (11.5-14.5) 17.8 % (11.5-14.5) Platelet Count 340 x10^3/uL (140-400) 276 x10^3/uL (140-400) Neutrophils (%) (Auto) 91 % (31-73) 72 % (31-73) Lymphocytes (%) (Auto) 6 % (24-48) 20 % (24-48) Monocytes (%) (Auto) 3 % (0-9) 5 % (0-9) Eosinophils (%) (Auto) 1 % (0-3) 2 % (0-3) Basophils (%) (Auto) 0 % (0-3) 0 % (0-3) Neutrophils # (Auto) 18.1 x10^3uL (1.8-7.7) 6.5 x10^3uL (1.8-7.7) Lymphocytes # (Auto) 1.1 x10^3/uL (1.0-4.8) 1.8 x10^3/uL (1.0-4.8) Monocytes # (Auto) 0.5 x10^3/uL (0.0-1.1) 0.5 x10^3/uL (0.0-1.1) Eosinophils # (Auto) 0.1 x10^3/uL (0.0-0.7) 0.2 x10^3/uL (0.0-0.7) Basophils # (Auto) 0.1 x10^3/uL (0.0-0.2) 0.0 x10^3/uL (0.0-0.2) Segmented Neutrophils % 79 % (35-66) Band Neutrophils % 15 % (0-9) Lymphocytes % 4 % (24-48) Monocytes % 2 % (0-10) Platelet Estimate Adequate (ADEQUATE) Polychromasia Slight Anisocytosis Slight Microcytosis Slight Sodium Level 141 mmol/L (136-145) 139 mmol/L (136-145) Potassium Level 3.3 mmol/L (3.5-5.1) 3.2 mmol/L (3.5-5.1) Chloride Level 105 mmol/L (98-107) 105 mmol/L (98-107) Carbon Dioxide Level 23 mmol/L (21-32) 24 mmol/L (21-32) Anion Gap 13 (6-14) 10 (6-14) Blood Urea Nitrogen 15 mg/dL (7-20) 11 mg/dL (7-20) Creatinine 1.3 mg/dL (0.6-1.0) 1.1 mg/dL (0.6-1.0) Estimated GFR (Cockcroft-Gault) 53.6 65.0 BUN/Creatinine Ratio 12 (6-20) 10 (6-20) Glucose Level 147 mg/dL (70-99) 98 mg/dL (70-99) Lactic Acid Level 1.7 mmol/L (0.4-2.0) Calcium Level 10.0 mg/dL (8.5-10.1) 9.5 mg/dL (8.5-10.1) Magnesium Level 2.5 mg/dL (1.8-2.4) Total Bilirubin 0.2 mg/dL (0.2-1.0) 0.2 mg/dL (0.2-1.0) Aspartate Amino Transf (AST/SGOT) 12 U/L (15-37) 12 U/L (15-37) Alanine Aminotransferase (ALT/SGPT) 17 U/L (14-59) 14 U/L (14-59) Alkaline Phosphatase 135 U/L (46-116) 105 U/L (46-116) Total Protein 8.4 g/dL (6.4-8.2) 7.0 g/dL (6.4-8.2) Albumin 3.7 g/dL (3.4-5.0) 3.0 g/dL (3.4-5.0) Albumin/Globulin Ratio 0.8 (1.0-1.7) 0.8 (1.0-1.7) Lipase 169 U/L (73-393) Urine Collection Type Unknown Urine Color Yellow Urine Clarity Cloudy Urine pH 6.0 Urine Specific [place] >=1.030 Urine Protein 100 mg/dL (NEG-TRACE) Urine Glucose (UA) Negative mg/dL (NEG) Urine Ketones (Stick) Trace mg/dL (NEG) Urine Blood Negative (NEG) Urine Nitrite Negative (NEG) Urine Bilirubin Small (NEG) Urine Urobilinogen Dipstick 1.0 mg/dL (0.2 mg/dL) Urine Leukocyte Esterase Small (NEG) Urine RBC 1-2 /HPF (0-2) Urine WBC 11-20 /HPF (0-4) Urine Squamous Epithelial Cells Many /LPF Urine Bacteria Many /HPF (0-FEW) Urine Mucus Marked /LPF Bedside Urine HCG, Qualitative Hcg negative (Negative) Medications Current Medications Sodium Chloride 1,000 ml @ 1,000 mls/hr 1X ONCE IV Last administered on at 09:37; Start 07/12/18 at 09:15; Stop 07/12/18 at 10:14; Status DC Ondansetron HCl (Zofran) 4 mg 1X ONCE IV Last administered on 07/12/18at 09:43 ; Start 07/12/18 at 09:15; Stop 07/12/18 at 09:16; Status DC Dicyclomine HCl (Bentyl) 20 mg 1X ONCE IM Last administered on 07/12/18at 10:44 ; Start 07/12/18 at 09:15; Stop 07/12/18 at 09:16; Status DC Iohexol (Omnipaque 300 Mg/ml) 75 ml 1X ONCE IV Last administered on 07/12/18at 10:30; Start 07/12/18 at 10:30; Stop 07/12/18 at 10:32; Status DC Info (CONTRAST GIVEN -- Rx MONITORING) 1 each PRN DAILY PRN MC SEE COMMENTS; Start 07/12/18 at 10:45; Stop 07/14/18 at 10:44 Metronidazole 100 ml @ 100 mls/hr 1X ONCE IV Last administered on 07/12/18at 13:10; Start 07/12/18 at 12:30; Stop 07/12/18 at 13:29; Status DC Ciprofloxacin/ Dextrose 200 ml @ 200 mls/hr Q12HR IV Last administered on 07/12at 23:00; Start 07/12/18 at 13:30; Stop 07/13/18 at 08:57; Status DC Morphine Sulfate (Morphine Sulfate) 2 mg PRN Q2HR PRN IV SEVERE PAIN Last administered on 07/13/18 16:10; Start 07/12/18 at 16:00 Atorvastatin Calcium (Lipitor) 20 mg HS PO Last administered on 07/13/18 21:33 ; Start 07/12/18 at 21:00 Cetirizine HCl (ZyrTEC) 10 mg DAILY PO Last administered on 07/13/18 08:23; Start 07/12/18 at 16:00 Lubiprostone (Amitiza) 8 mcg BID PO Last administered on 07/13/18 08:23; Start 07/12/18 at 21:00; Stop 07/13/18 at 08:49; Status DC Lisinopril (Prinivil) 10 mg DAILY PO Last administered on 07/13/18 08:24; Start 07/13/18 at 09:00 Oxcarbazepine (Trileptal) 300 mg BID PO Last administered on 07/13/18 08:23; Start 07/12/18 at 21:00; Stop 07/13/18 at 11:19; Status DC Polyethylene Glycol (miraLAX PACKET) 17 gm BID PO Last administered on 16:00; Start 07/12/18 at 21:00 Topiramate (Topamax) 100 mg BID PO Last administered on 07/13/18 21:33; Start 07/12/18 at 21:00 Hydrochlorothiazide (Microzide) 12.5 mg DAILY PO Last administered on at 08:24; Start 07/13/18 at 09:00 Ketorolac Tromethamine (Toradol 30mg Vial) 30 mg PRN Q6HRS PRN IV MILD - MODERATE PAIN; Start 07/12/18 at 20:00; Stop 07/17/18 at 19:59 Lactobacillus Rhamnosus (Culturelle) 1 cap BID PO Last administered on at 21:33; Start 07/13/18 at 09:00 Ciprofloxacin/ Dextrose 200 ml @ 200 mls/hr Q12H IV Last administered on at 23:00; Start 07/13/18 at 11:00 Metronidazole 100 ml @ 100 mls/hr Q8HRS IV Last administered on 07/14/18at 06: 16; Start 07/13/18 at 09:00 Potassium Chloride (Klor-Con) 40 meq 1X ONCE PO Last administered on at 09:26; Start 07/13/18 at 08:45; Stop 07/13/18 at 08:52; Status DC Potassium Chloride (Klor-Con) 40 meq DAILYWBKFT PO ; Start 07/14/18 at 08:00 Loperamide HCl (Imodium) 2 mg PRN Q15MIN PRN PO DIARRHEA; Start 07/13/18 at 08: 45 Ondansetron HCl (Zofran) 4 mg PRN Q6HRS PRN IV NAUSEA/VOMITING; Start 07/13/18 at 08:45 Ondansetron HCl (Zofran Odt) 4 mg PRN Q6HRS PRN PO NAUSEA/VOMITING; Start 07/13 at 08:45 Acetaminophen (Tylenol) 500 mg PRN Q6HRS PRN PO MILD PAIN / TEMP; Start at 08:45 Acetaminophen/ Hydrocodone Bitart (Lortab 5/325) 1 tab PRN Q4HRS PRN PO PAIN MODERATE TO SEVERE; Start 07/13/18 at 08:45 Sodium Chloride 1,000 ml @ 100 mls/hr 1X ONCE IV Last administered on at 09:33; Start 07/13/18 at 09:00; Stop 07/13/18 at 18:59; Status DC Oxcarbazepine (Trileptal) 900 mg BID PO Last administered on 07/13/18at 21:33; Start 07/13/18 at 21:00 Bisacodyl (Dulcolax Tab) 10 mg 1X ONCE PO Last administered on 07/13/18at 17:07 ; Start 07/13/18 at 17:00; Stop 07/13/18 at 17:01; Status DC Polyethylene Glycol (miraLAX Powder BULK BOTTLE) 238 gm 1X ONCE PO Last administered on 07/13/18at 19:35; Start 07/13/18 at 19:00; Stop 07/13/18 at 19:01 ; Status DC Sodium Chloride (Normal Saline Flush) 3 ml QSHIFT PRN IV AFTER MEDS AND BLOOD DRAWS; Start 07/13/18 at 16:45 Sodium Chloride (Normal Saline Flush) 3 ml QSHIFT PRN IV AFTER MEDS AND BLOOD DRAWS; Start 07/13/18 at 16:45; Status UNV Benzocaine (Hurricaine One) 1 spray STK-MED ONCE .ROUTE ; Start 07/14/18 at 07: 58; Stop 07/14/18 at 07:59; Status DC Midazolam HCl (Versed) 5 mg STK-MED ONCE .ROUTE ; Start 07/14/18 at 07:59; Stop 07/14/18 at 08:00; Status DC Fentanyl Citrate (Fentanyl 2ml Vial) 100 mcg STK-MED ONCE .ROUTE ; Start at 07:59; Stop 07/14/18 at 08:00; Status DC Propofol 40 ml @ As Directed STK-MED ONCE IV ; Start 07/14/18 at 08:34; Stop at 08:35; Status DC Lidocaine HCl (Lidocaine Pf 2% Vial) 5 ml STK-MED ONCE .ROUTE ; Start 07/14/18 at 08:34; Stop 07/14/18 at 08:35; Status DC Active Scripts Active Reported Amitiza (Lubiprostone) 8 Mcg Capsule 1 Cap PO BID Miralax (Polyethylene Glycol 3350) 17 Gm Powd.pack 1 Packet PO BID Zyrtec (Cetirizine Hcl) 10 Mg Tablet 1 Tab PO DAILY Atorvastatin Calcium 20 Mg Tablet 20 Mg PO HS Topiramate 100 Mg Tablet 1 Tab PO BID Oxcarbazepine 300 Mg Tablet 1 Tab PO BID Lisinopril-Hctz 10-12.5 Mg Tab (Lisinopril/Hydrochlorothiazide) 1 Each Tablet 1 Tab PO DAILY Vitals/I & O Vital Sign - Last 24 Hours 07/13/18 07/13/18 07/13/18 07/13/18 11:00 15:00 16:10 16:40 Temp 98.3 98.3 98.3 98.3 Pulse 67 70 Resp 18 18 B/P (MAP) 109/60 (76) 107/62 (77) Pulse Ox 98 99 O2 Delivery Room Air Room Air Room Air Room Air 07/13/18 07/13/18 07/13/18 07/14/18 19:00 19:30 23:00 03:00 Temp 98.5 98.2 97.9 98.5 98.2 97.9 Pulse 78 76 72 Resp 18 18 18 B/P (MAP) 109/67 (81) 115/74 (88) 96/62 (73) Pulse Ox 100 99 98 O2 Delivery Room Air Room Air Room Air Room Air 07/14/18 07/14/18 07:37 09:08 Temp 97 97.0 97.0 97.0 Pulse 64 72 Resp 18 18 B/P (MAP) 90/53 Pulse Ox 99 99 O2 Delivery Room Air Intake and Output 07/13/18 07/13/18 07/14/18 15:00 23:00 07:00 Intake Total 700 ml 300 ml Balance 700 ml 300 ml AGUSTÍN CARMONA MD Jul 14, 2018 09:27
[2018-07-14 11:00] VITALS: BP 123/75
[2018-07-14 11:24] LABS: BASO % 1 % (0-3); EOS # 0.2 x10^3/uL (0.0-0.7); EOS % 3 % (0-3); HEMATOCRIT 33.3 % (36.0-47.0); HEMOGLOBIN 10.9 g/dL (12.0-15.5); LYMPH # 1.5 x10^3/uL (1.0-4.8); LYMPH % 21 % (24-48); MEAN CORPUSCULAR HEMOGLOBIN 26 pg (25-35); MEAN CORPUSCULAR HGB CONC 33 g/dL (31-37); MEAN CORPUSCULAR VOLUME 79 fL (79-100); MONO # 0.3 x10^3/uL (0.0-1.1); MONO % 4 % (0-9); NEUT # 5.2 x10^3uL (1.8-7.7); NEUT % 72 % (31-73); PLATELET COUNT 297 x10^3/uL (140-400); RED BLOOD COUNT 4.22 x10^6/uL (3.50-5.40); RED CELL DISTRIBUTION WIDTH 17.8 % (11.5-14.5); WHITE BLOOD COUNT 7.2 x10^3/uL (4.0-11.0)
[2018-07-14] MEDS: LISINOPRIL 10 MG TABLET PO SCH (11:43)
[2018-07-14] MEDS: CETIRIZINE HCL 10 MG TABLET. PO SCH (11:43)
[2018-07-14] MEDS: LACTOBACILLUS RHAMNOSUS GG 1 CAPSULE. PO SCH ×2 (11:44→20:54)
[2018-07-14] MEDS: OXcarbazepine 300 MG TABLET PO SCH ×2 (11:44→20:53)
[2018-07-14] MEDS: hydroCHLOROthiazide 12.5 MG CAPSULE PO SCH (11:44)
[2018-07-14] MEDS: TOPIRAMATE 25 MG TABLET. PO SCH ×2 (11:44→20:52)
[2018-07-14] MEDS: POLYETHYLENE GLYCOL 3350 17 GM PACKET. PO SCH ×2 (11:45→20:57)
[2018-07-14] MEDS: CIPROFLOXACIN 400MG PREMIX 200 ML IV SCH ×2 (11:45→23:30)
[2018-07-14] MEDS: POTASSIUM CHLORIDE 20 MEQ TABLET.ER. PO SCH (11:45)
--- NOTE | 2018-07-14 11:45 | PDOC2 ---
ISAAC COLE Jorge CLINICAL RECRUITER 07/14/18 1145: CONSULT Date of Consult Date of Consult DATE: 07/14/18 TIME: 11:39 Reason for Consult Reason for Consult: Cecal mass Referring Physician Referring Physician: Dr Hardwick Identification/Chief Complaint Chief Complaint abdominal pain Source Source: Chart review, Patient History of Present Illness Reason for Visit: Reports abdominal pain since January, treated for ucler x 3 months, however continued to have abdominal pain. Reports constipation, early satiety. Denies weight loss or gain Scheduled for outpt scopes, however worsening bloating and emesis. Scope down today that noted ulcerated partially obstructing mass in cecum Past Medical History Cardiovascular: HTN, Hyperlipidemia Pulmonary: Asthma CENTRAL NERVOUS SYSTEM: Seizure Past Surgical History Past Surgical History: Family History Family History: Diabetes Social History <1 pack per day ALCOHOL: none Drugs: None Lives: with Family Current Problem List Problem List Problems Medical Problems: (1) Abdominal pain Status: Acute (2) Bandemia Status: Acute (3) Leukocytosis Status: Acute (4) Nausea vomiting and diarrhea Status: Acute (5) UTI (urinary tract infection) Status: Acute Current Medications Current Medications Current Medications Sodium Chloride 1,000 ml @ 1,000 mls/hr 1X ONCE IV Last administered on at 09:37; Start 07/12/18 at 09:15; Stop 07/12/18 at 10:14; Status DC Ondansetron HCl (Zofran) 4 mg 1X ONCE IV Last administered on 07/12/18at 09:43 ; Start 07/12/18 at 09:15; Stop 07/12/18 at 09:16; Status DC Dicyclomine HCl (Bentyl) 20 mg 1X ONCE IM Last administered on 07/12/18at 10:44 ; Start 07/12/18 at 09:15; Stop 07/12/18 at 09:16; Status DC Iohexol (Omnipaque 300 Mg/ml) 75 ml 1X ONCE IV Last administered on 07/12/18at 10:30; Start 07/12/18 at 10:30; Stop 07/12/18 at 10:32; Status DC Info (CONTRAST GIVEN -- Rx MONITORING) 1 each PRN DAILY PRN MC SEE COMMENTS; Start 07/12/18 at 10:45; Stop 07/14/18 at 10:44; Status DC Metronidazole 100 ml @ 100 mls/hr 1X ONCE IV Last administered on 07/12/18 13:10; Start 07/12/18 at 12:30; Stop 07/12/18 at 13:29; Status DC Ciprofloxacin/ Dextrose 200 ml @ 200 mls/hr Q12HR IV Last administered on 07/12 23:00; Start 07/12/18 at 13:30; Stop 07/13/18 at 08:57; Status DC Morphine Sulfate (Morphine Sulfate) 2 mg PRN Q2HR PRN IV SEVERE PAIN Last administered on 07/13/18at 16:10; Start 07/12/18 at 16:00 Atorvastatin Calcium (Lipitor) 20 mg HS PO Last administered on 07/13/18 21:33 ; Start 07/12/18 at 21:00 Cetirizine HCl (ZyrTEC) 10 mg DAILY PO Last administered on 07/13/18 08:23; Start 07/12/18 at 16:00 Lubiprostone (Amitiza) 8 mcg BID PO Last administered on 07/13/18 08:23; Start 07/12/18 at 21:00; Stop 07/13/18 at 08:49; Status DC Lisinopril (Prinivil) 10 mg DAILY PO Last administered on 07/13/18 08:24; Start 07/13/18 at 09:00 Oxcarbazepine (Trileptal) 300 mg BID PO Last administered on 07/13/18 08:23; Start 07/12/18 at 21:00; Stop 07/13/18 at 11:19; Status DC Polyethylene Glycol (miraLAX PACKET) 17 gm BID PO Last administered on at 16:00; Start 07/12/18 at 21:00 Topiramate (Topamax) 100 mg BID PO Last administered on 07/13/18at 21:33; Start 07/12/18 at 21:00 Hydrochlorothiazide (Microzide) 12.5 mg DAILY PO Last administered on at 08:24; Start 07/13/18 at 09:00 Ketorolac Tromethamine (Toradol 30mg Vial) 30 mg PRN Q6HRS PRN IV MILD - MODERATE PAIN; Start 07/12/18 at 20:00; Stop 07/17/18 at 19:59 Lactobacillus Rhamnosus (Culturelle) 1 cap BID PO Last administered on at 21:33; Start 07/13/18 at 09:00 Ciprofloxacin/ Dextrose 200 ml @ 200 mls/hr Q12H IV Last administered on at 23:00; Start 07/13/18 at 11:00 Metronidazole 100 ml @ 100 mls/hr Q8HRS IV Last administered on 07/14/18at 06: 16; Start 07/13/18 at 09:00 Potassium Chloride (Klor-Con) 40 meq 1X ONCE PO Last administered on at 09:26; Start 07/13/18 at 08:45; Stop 07/13/18 at 08:52; Status DC Potassium Chloride (Klor-Con) 40 meq DAILYWBKFT PO ; Start 07/14/18 at 08:00 Loperamide HCl (Imodium) 2 mg PRN Q15MIN PRN PO DIARRHEA; Start 07/13/18 at 08: 45 Ondansetron HCl (Zofran) 4 mg PRN Q6HRS PRN IV NAUSEA/VOMITING; Start 07/13/18 at 08:45 Ondansetron HCl (Zofran Odt) 4 mg PRN Q6HRS PRN PO NAUSEA/VOMITING; Start 07/13 at 08:45 Acetaminophen (Tylenol) 500 mg PRN Q6HRS PRN PO MILD PAIN / TEMP; Start at 08:45 Acetaminophen/ Hydrocodone Bitart (Lortab 5/325) 1 tab PRN Q4HRS PRN PO PAIN MODERATE TO SEVERE; Start 07/13/18 at 08:45 Sodium Chloride 1,000 ml @ 100 mls/hr 1X ONCE IV Last administered on at 09:33; Start 07/13/18 at 09:00; Stop 07/13/18 at 18:59; Status DC Oxcarbazepine (Trileptal) 900 mg BID PO Last administered on 07/13/18at 21:33; Start 07/13/18 at 21:00 Bisacodyl (Dulcolax Tab) 10 mg 1X ONCE PO Last administered on 07/13/18at 17:07 ; Start 07/13/18 at 17:00; Stop 07/13/18 at 17:01; Status DC Polyethylene Glycol (miraLAX Powder BULK BOTTLE) 238 gm 1X ONCE PO Last administered on 07/13/18at 19:35; Start 07/13/18 at 19:00; Stop 07/13/18 at 19:01 ; Status DC Sodium Chloride (Normal Saline Flush) 3 ml QSHIFT PRN IV AFTER MEDS AND BLOOD DRAWS; Start 07/13/18 at 16:45 Sodium Chloride (Normal Saline Flush) 3 ml QSHIFT PRN IV AFTER MEDS AND BLOOD DRAWS; Start 07/13/18 at 16:45; Status UNV Benzocaine (Hurricaine One) 1 spray STK-MED ONCE .ROUTE ; Start 07/14/18 at 07: 58; Stop 07/14/18 at 07:59; Status DC Midazolam HCl (Versed) 5 mg STK-MED ONCE .ROUTE ; Start 07/14/18 at 07:59; Stop 07/14/18 at 08:00; Status DC Fentanyl Citrate (Fentanyl 2ml Vial) 100 mcg STK-MED ONCE .ROUTE ; Start at 07:59; Stop 07/14/18 at 08:00; Status DC Propofol 40 ml @ As Directed STK-MED ONCE IV ; Start 07/14/18 at 08:34; Stop at 08:35; Status DC Lidocaine HCl (Lidocaine Pf 2% Vial) 5 ml STK-MED ONCE .ROUTE ; Start 07/14/18 at 08:34; Stop 07/14/18 at 08:35; Status DC Active Scripts Active Reported Amitiza (Lubiprostone) 8 Mcg Capsule 1 Cap PO BID Miralax (Polyethylene Glycol 3350) 17 Gm Powd.pack 1 Packet PO BID Zyrtec (Cetirizine Hcl) 10 Mg Tablet 1 Tab PO DAILY Atorvastatin Calcium 20 Mg Tablet 20 Mg PO HS Topiramate 100 Mg Tablet 1 Tab PO BID Oxcarbazepine 300 Mg Tablet 1 Tab PO BID Lisinopril-Hctz 10-12.5 Mg Tab (Lisinopril/Hydrochlorothiazide) 1 Each Tablet 1 Tab PO DAILY Allergies Allergies: Coded Allergies: No Known Drug Allergies (Unverified , 07/12/18) ROS General: No: Chills, Other (fevers) PSYCHOLOGICAL ROS: No: Anxiety, Depression Eyes: No Blurry vision, No Double vision HEENT: No: Heacaches, Sore Throat Hematological and Lymphatic: No: Bleeding Problems, Blood Clots Respiratory: No: Cough, Shortness of breath Cardiovascular: No Chest Pain, No Palpitations Gastrointestinal: Yes Other (see hpi) Genitourinary: No Dysuria, No Hematuria Musculoskeletal: No Joint Pain, No Muscle Pain Neurological: No Impaired Coord/balance, No Numbness/Tingling Skin: No Pruritus, No Rash Physical Exam General: Alert, Oriented X3, Cooperative, No acute distress HEENT: PERRLA, Mucous membr. moist/pink Lungs: Clear to auscultation, Normal air movement Heart: Regular rate, Normal S1, Normal S2, No murmurs Abdomen: Soft, No tenderness, Other (obese abdomen ) Extremities: No clubbing, No cyanosis Skin: No rashes, No breakdown Neuro: Normal gait, Normal speech Psych/Mental Status: Mental status NL, Mood NL MUSCULOSKELETAL: No deformity, No swelling Vitals VITALS Vital Signs Date Time Temp Pulse Resp B/P (MAP) Pulse Ox O2 Delivery O2 Flow Rate FiO2 07/14/18 11:00 97.6 69 20 123/75 (91) 100 Room Air 97.6 Labs Labs Laboratory Tests Test 07/13/18 05:15 07/14/18 11:00 White Blood Count 9.0 x10^3/uL (4.0-11.0) 7.2 x10^3/uL (4.0-11.0) Red Blood Count 3.94 x10^6/uL (3.50-5.40) 4.22 x10^6/uL (3.50-5.40) Hemoglobin 10.1 g/dL (12.0-15.5) 10.9 g/dL (12.0-15.5) Hematocrit 30.9 % (36.0-47.0) 33.3 % (36.0-47.0) Mean Corpuscular Volume 78 fL (79-100) 79 fL (79-100) Mean Corpuscular Hemoglobin 26 pg (25-35) 26 pg (25-35) Mean Corpuscular Hemoglobin Concent 33 g/dL (31-37) 33 g/dL (31-37) Red Cell Distribution Width 17.8 % (11.5-14.5) 17.8 % (11.5-14.5) Platelet Count 276 x10^3/uL (140-400) 297 x10^3/uL (140-400) Neutrophils (%) (Auto) 72 % (31-73) 72 % (31-73) Lymphocytes (%) (Auto) 20 % (24-48) 21 % (24-48) Monocytes (%) (Auto) 5 % (0-9) 4 % (0-9) Eosinophils (%) (Auto) 2 % (0-3) 3 % (0-3) Basophils (%) (Auto) 0 % (0-3) 1 % (0-3) Neutrophils # (Auto) 6.5 x10^3uL (1.8-7.7) 5.2 x10^3uL (1.8-7.7) Lymphocytes # (Auto) 1.8 x10^3/uL (1.0-4.8) 1.5 x10^3/uL (1.0-4.8) Monocytes # (Auto) 0.5 x10^3/uL (0.0-1.1) 0.3 x10^3/uL (0.0-1.1) Eosinophils # (Auto) 0.2 x10^3/uL (0.0-0.7) 0.2 x10^3/uL (0.0-0.7) Basophils # (Auto) 0.0 x10^3/uL (0.0-0.2) 0.0 x10^3/uL (0.0-0.2) Sodium Level 139 mmol/L (136-145) Potassium Level 3.2 mmol/L (3.5-5.1) Chloride Level 105 mmol/L (98-107) Carbon Dioxide Level 24 mmol/L (21-32) Anion Gap 10 (6-14) Blood Urea Nitrogen 11 mg/dL (7-20) Creatinine 1.1 mg/dL (0.6-1.0) Estimated GFR (Cockcroft-Gault) 65.0 BUN/Creatinine Ratio 10 (6-20) Glucose Level 98 mg/dL (70-99) Calcium Level 9.5 mg/dL (8.5-10.1) Total Bilirubin 0.2 mg/dL (0.2-1.0) Aspartate Amino Transf (AST/SGOT) 12 U/L (15-37) Alanine Aminotransferase (ALT/SGPT) 14 U/L (14-59) Alkaline Phosphatase 105 U/L (46-116) Total Protein 7.0 g/dL (6.4-8.2) Albumin 3.0 g/dL (3.4-5.0) Albumin/Globulin Ratio 0.8 (1.0-1.7) Laboratory Tests Test 07/14/18 11:00 White Blood Count 7.2 x10^3/uL (4.0-11.0) Red Blood Count 4.22 x10^6/uL (3.50-5.40) Hemoglobin 10.9 g/dL (12.0-15.5) Hematocrit 33.3 % (36.0-47.0) Mean Corpuscular Volume 79 fL (79-100) Mean Corpuscular Hemoglobin 26 pg (25-35) Mean Corpuscular Hemoglobin Concent 33 g/dL (31-37) Red Cell Distribution Width 17.8 % (11.5-14.5) Platelet Count 297 x10^3/uL (140-400) Neutrophils (%) (Auto) 72 % (31-73) Lymphocytes (%) (Auto) 21 % (24-48) Monocytes (%) (Auto) 4 % (0-9) Eosinophils (%) (Auto) 3 % (0-3) Basophils (%) (Auto) 1 % (0-3) Neutrophils # (Auto) 5.2 x10^3uL (1.8-7.7) Lymphocytes # (Auto) 1.5 x10^3/uL (1.0-4.8) Monocytes # (Auto) 0.3 x10^3/uL (0.0-1.1) Eosinophils # (Auto) 0.2 x10^3/uL (0.0-0.7) Basophils # (Auto) 0.0 x10^3/uL (0.0-0.2) Assessment/Plan Assessment/Plan partially obstructing mass in cecum-bx, tattooed umbilical hernia obesity, BMI 42.5 Tobaccoism, HTN, HLD, seizures will review with Dr Narayan for surgical planning ROSHAN NARAYAN MD 07/15/18 0935: CONSULT Assessment/Plan Assessment/Plan pt seen and examined by me on 07/14/18 (late entry note); admitted for abdominal pain, colonoscopy and CT shows mass in cecum. PMH/PSH/ROS/SH as above; exam: alert, oriented, no neck masses, lungs clear, heart RR and R, abdomen obese, soft, currently nontender, no masses, ext neg for edema or deformity; labs and CT reviewed; A/P) Cecal mass, recommend lap possible open right colectomy. I reviewed the details and risks of surgery with the patient. She understands and would like to proceed. ISAAC COLE APRN Jul 14, 2018 11:45 ROSHAN NARAYAN MD Jul 15, 2018 09:46
[2018-07-14 11:52] LABS: CALCIUM 9.2 mg/dL (8.5-10.1); GFR 72.5; POTASSIUM 3.6 mmol/L (3.5-5.1)
[2018-07-14 15:00] VITALS: BP 108/72
[2018-07-14 19:00] VITALS: BP 103/53
[2018-07-14] MEDS: ATORVASTATIN CALCIUM 20 MG TABLET PO SCH (20:54)
[2018-07-14 22:47] VITALS: BP 87/50
[2018-07-15] VITALS (11 sets, daily range): BP systolic 99–111; BP diastolic 61–70
[2018-07-15] MEDS ORDERED: HYDROmorphone 2 MG/ML VIAL IV PRN (07:00)
[2018-07-15] MEDS ORDERED: fentaNYL PF VIAL 100 MCG/2 ML VIAL IV PRN (07:00)
[2018-07-15] MEDS ORDERED: PROCHLORPERAZINE 10 MG/2 ML VIAL. IV PRN (07:00)
[2018-07-15] MEDS ORDERED: IV RINGERS,LACTATED 1000ML 1,000 ML IV SCH (07:00)
[2018-07-15] MEDS ORDERED: LIDOCAINE 1% PF 2 ML VIAL. ID PRN (07:00)
[2018-07-15] MEDS ORDERED: MORPHINE SULFATE 2 MG/ML VIAL. IV PRN (07:00)
[2018-07-15] MEDS: POTASSIUM CHLORIDE 20 MEQ TABLET.ER. PO SCH (08:00)
[2018-07-15] MEDS ORDERED: EPINEPHrine VIAL 30 MG/30 ML VIAL ONE (08:02)
[2018-07-15] MEDS ORDERED: BUPIVACAINE MPF 0.25% 30 ML VIAL. ONE (08:02)
[2018-07-15] MEDS: TOPIRAMATE 25 MG TABLET. PO SCH ×2 (09:00→21:00)
[2018-07-15] MEDS: LACTOBACILLUS RHAMNOSUS GG 1 CAPSULE. PO SCH ×2 (09:00→21:00)
[2018-07-15] MEDS: hydroCHLOROthiazide 12.5 MG CAPSULE PO SCH (09:00)
[2018-07-15] MEDS: LISINOPRIL 10 MG TABLET PO SCH (09:00)
[2018-07-15] MEDS: OXcarbazepine 300 MG TABLET PO SCH ×2 (09:00→21:00)
[2018-07-15] MEDS: CETIRIZINE HCL 10 MG TABLET. PO SCH (09:00)
[2018-07-15] MEDS: POLYETHYLENE GLYCOL 3350 17 GM PACKET. PO SCH ×2 (09:00→21:00)
[2018-07-15] MEDS ORDERED: MIDAZOLAM HCL/PF 2 MG/2 ML VIAL. ONE (09:12)
[2018-07-15] MEDS ORDERED: SEVOFLURANE > 120 MINUTES. IH ONE (09:12)
[2018-07-15] MEDS ORDERED: fentaNYL PF VIAL 100 MCG/2 ML VIAL ONE ×5 (09:12→13:34)
[2018-07-15] MEDS ORDERED: NEOSTIGMINE METHYLSULFATE 5 MG/5 ML SYRINGE. ONE (09:13)
[2018-07-15] MEDS ORDERED: GLYCOPYRROLATE 1 MG/5 ML VIAL. ONE (09:13)
[2018-07-15] MEDS ORDERED: ONDANSETRON PF 4 MG/2 ML VIAL. ONE (09:13)
[2018-07-15] MEDS ORDERED: DEXAMETHASONE SOD PHOS 20 MG/5 ML VIAL. ONE (09:13)
[2018-07-15] MEDS ORDERED: PROPOFOL 20 ML IV ONE (09:13)
[2018-07-15] MEDS ORDERED: KETOROLAC 30 MG/ML INJ FOR OR. INJ ONE (09:13)
[2018-07-15] MEDS ORDERED: ROCURONIUM 50 MG/5 ML VIAL. ONE ×2 (09:13→10:10)
[2018-07-15] MEDS ORDERED: PHENYLEPHRINE in 0.9% NACL PF 1 MG/10 ML SYRINGE. IV ONE (09:53)
[2018-07-15] MEDS ORDERED: ESMOLOL 100 MG/10 ML VIAL. IV ONE (10:09)
--- NOTE | 2018-07-15 10:40 | PDOC ---
PROGRESS NOTES Chief Complaint Chief Complaint COLON MASS - new dx Cholelithiasis. Nonobstructing left intrarenal calculi. Enlarged fibroid uterus. Probable renal cysts. History of Present Illness History of Present Illness Out having surgery for colon mass which is a new diagnosis- dx after EGD colonoscopy this admission Will go to [facility] Postop CAT scan: 1. Mural thickening involving the colon in the ileocecal valve region raising the possibility of colonic malignancy. An inflammatory process cannot be excluded. There is mild associated dilatation of the distal small bowel and mild mesenteric adenopathy at this level. 2. Small amount of free fluid in the pelvis. 3. Cholelithiasis. 4. Nonobstructing left intrarenal calculi. 5. Enlarged fibroid uterus. 6. Probable renal cysts. PLAN: 4N post op\ Post op labs and care Vitals Vitals Vital Signs Date Time Temp Pulse Resp B/P (MAP) Pulse Ox O2 Delivery O2 Flow Rate FiO2 07/15/18 09:16 97.7 62 20 101/59 100 Room Air 97.7 Physical Exam General: Alert, Oriented X3, Cooperative, No acute distress Heart: Regular rate, Normal S1, Normal S2, No murmurs Lungs: Clear Abdomen: Soft, No tenderness, Other (obese abdomen ) Extremities: No clubbing, No cyanosis Skin: No rashes, No breakdown Labs LABS Laboratory Tests Test 07/14/18 11:00 White Blood Count 7.2 x10^3/uL (4.0-11.0) Red Blood Count 4.22 x10^6/uL (3.50-5.40) Hemoglobin 10.9 g/dL (12.0-15.5) Hematocrit 33.3 % (36.0-47.0) Mean Corpuscular Volume 79 fL (79-100) Mean Corpuscular Hemoglobin 26 pg (25-35) Mean Corpuscular Hemoglobin Concent 33 g/dL (31-37) Red Cell Distribution Width 17.8 % (11.5-14.5) Platelet Count 297 x10^3/uL (140-400) Neutrophils (%) (Auto) 72 % (31-73) Lymphocytes (%) (Auto) 21 % (24-48) Monocytes (%) (Auto) 4 % (0-9) Eosinophils (%) (Auto) 3 % (0-3) Basophils (%) (Auto) 1 % (0-3) Neutrophils # (Auto) 5.2 x10^3uL (1.8-7.7) Lymphocytes # (Auto) 1.5 x10^3/uL (1.0-4.8) Monocytes # (Auto) 0.3 x10^3/uL (0.0-1.1) Eosinophils # (Auto) 0.2 x10^3/uL (0.0-0.7) Basophils # (Auto) 0.0 x10^3/uL (0.0-0.2) Erythrocyte Sedimentation Rate 38 (0-25) Sodium Level 142 mmol/L (136-145) Potassium Level 3.6 mmol/L (3.5-5.1) Chloride Level 108 mmol/L (98-107) Carbon Dioxide Level 24 mmol/L (21-32) Anion Gap 10 (6-14) Blood Urea Nitrogen 7 mg/dL (7-20) Creatinine 1.0 mg/dL (0.6-1.0) Estimated GFR (Cockcroft-Gault) 72.5 Glucose Level 97 mg/dL (70-99) Calcium Level 9.2 mg/dL (8.5-10.1) Review of Systems Review of Systems Out having surgery Assessment and Plan Assessmemt and Plan Problems Medical Problems: (1) Abdominal pain Status: Acute (2) Bandemia Status: Acute (3) Leukocytosis Status: Acute (4) Nausea vomiting and diarrhea Status: Acute (5) UTI (urinary tract infection) Status: Acute Comment Review of Relevant I have reviewed the following items dawson (where applicable) has been applied. Labs Laboratory Tests Test 07/14/18 11:00 White Blood Count 7.2 x10^3/uL (4.0-11.0) Red Blood Count 4.22 x10^6/uL (3.50-5.40) Hemoglobin 10.9 g/dL (12.0-15.5) Hematocrit 33.3 % (36.0-47.0) Mean Corpuscular Volume 79 fL (79-100) Mean Corpuscular Hemoglobin 26 pg (25-35) Mean Corpuscular Hemoglobin Concent 33 g/dL (31-37) Red Cell Distribution Width 17.8 % (11.5-14.5) Platelet Count 297 x10^3/uL (140-400) Neutrophils (%) (Auto) 72 % (31-73) Lymphocytes (%) (Auto) 21 % (24-48) Monocytes (%) (Auto) 4 % (0-9) Eosinophils (%) (Auto) 3 % (0-3) Basophils (%) (Auto) 1 % (0-3) Neutrophils # (Auto) 5.2 x10^3uL (1.8-7.7) Lymphocytes # (Auto) 1.5 x10^3/uL (1.0-4.8) Monocytes # (Auto) 0.3 x10^3/uL (0.0-1.1) Eosinophils # (Auto) 0.2 x10^3/uL (0.0-0.7) Basophils # (Auto) 0.0 x10^3/uL (0.0-0.2) Erythrocyte Sedimentation Rate 38 (0-25) Sodium Level 142 mmol/L (136-145) Potassium Level 3.6 mmol/L (3.5-5.1) Chloride Level 108 mmol/L (98-107) Carbon Dioxide Level 24 mmol/L (21-32) Anion Gap 10 (6-14) Blood Urea Nitrogen 7 mg/dL (7-20) Creatinine 1.0 mg/dL (0.6-1.0) Estimated GFR (Cockcroft-Gault) 72.5 Glucose Level 97 mg/dL (70-99) Calcium Level 9.2 mg/dL (8.5-10.1) Laboratory Tests Test 07/14/18 11:00 White Blood Count 7.2 x10^3/uL (4.0-11.0) Red Blood Count 4.22 x10^6/uL (3.50-5.40) Hemoglobin 10.9 g/dL (12.0-15.5) Hematocrit 33.3 % (36.0-47.0) Mean Corpuscular Volume 79 fL (79-100) Mean Corpuscular Hemoglobin 26 pg (25-35) Mean Corpuscular Hemoglobin Concent 33 g/dL (31-37) Red Cell Distribution Width 17.8 % (11.5-14.5) Platelet Count 297 x10^3/uL (140-400) Neutrophils (%) (Auto) 72 % (31-73) Lymphocytes (%) (Auto) 21 % (24-48) Monocytes (%) (Auto) 4 % (0-9) Eosinophils (%) (Auto) 3 % (0-3) Basophils (%) (Auto) 1 % (0-3) Neutrophils # (Auto) 5.2 x10^3uL (1.8-7.7) Lymphocytes # (Auto) 1.5 x10^3/uL (1.0-4.8) Monocytes # (Auto) 0.3 x10^3/uL (0.0-1.1) Eosinophils # (Auto) 0.2 x10^3/uL (0.0-0.7) Basophils # (Auto) 0.0 x10^3/uL (0.0-0.2) Erythrocyte Sedimentation Rate 38 (0-25) Sodium Level 142 mmol/L (136-145) Potassium Level 3.6 mmol/L (3.5-5.1) Chloride Level 108 mmol/L (98-107) Carbon Dioxide Level 24 mmol/L (21-32) Anion Gap 10 (6-14) Blood Urea Nitrogen 7 mg/dL (7-20) Creatinine 1.0 mg/dL (0.6-1.0) Estimated GFR (Cockcroft-Gault) 72.5 Glucose Level 97 mg/dL (70-99) Calcium Level 9.2 mg/dL (8.5-10.1) Microbiology 07/12/18 Urine Culture - Final, Complete 07/12/18 Urine Culture Result 1 (SHEBA) - Final, Complete Medications Current Medications Sodium Chloride 1,000 ml @ 1,000 mls/hr 1X ONCE IV Last administered on at 09:37; Start 07/12/18 at 09:15; Stop 07/12/18 at 10:14; Status DC Ondansetron HCl (Zofran) 4 mg 1X ONCE IV Last administered on 07/12/18at 09:43 ; Start 07/12/18 at 09:15; Stop 07/12/18 at 09:16; Status DC Dicyclomine HCl (Bentyl) 20 mg 1X ONCE IM Last administered on 07/12/18at 10:44 ; Start 07/12/18 at 09:15; Stop 07/12/18 at 09:16; Status DC Iohexol (Omnipaque 300 Mg/ml) 75 ml 1X ONCE IV Last administered on 07/12/18at 10:30; Start 07/12/18 at 10:30; Stop 07/12/18 at 10:32; Status DC Info (CONTRAST GIVEN -- Rx MONITORING) 1 each PRN DAILY PRN MC SEE COMMENTS; Start 07/12/18 at 10:45; Stop 07/14/18 at 10:44; Status DC Metronidazole 100 ml @ 100 mls/hr 1X ONCE IV Last administered on 07/12/18at 13:10; Start 07/12/18 at 12:30; Stop 07/12/18 at 13:29; Status DC Ciprofloxacin/ Dextrose 200 ml @ 200 mls/hr Q12HR IV Last administered on 07/12at 23:00; Start 07/12/18 at 13:30; Stop 07/13/18 at 08:57; Status DC Morphine Sulfate (Morphine Sulfate) 2 mg PRN Q2HR PRN IV SEVERE PAIN Last administered on 07/13/18at 16:10; Start 07/12/18 at 16:00 Atorvastatin Calcium (Lipitor) 20 mg HS PO Last administered on 07/14/18at 20:54 ; Start 07/12/18 at 21:00 Cetirizine HCl (ZyrTEC) 10 mg DAILY PO Last administered on 07/14/18at 11:43; Start 07/12/18 at 16:00 Lubiprostone (Amitiza) 8 mcg BID PO Last administered on 07/13/18at 08:23; Start 07/12/18 at 21:00; Stop 07/13/18 at 08:49; Status DC Lisinopril (Prinivil) 10 mg DAILY PO Last administered on 07/14/18at 11:43; Start 07/13/18 at 09:00 Oxcarbazepine (Trileptal) 300 mg BID PO Last administered on 07/13/18at 08:23; Start 07/12/18 at 21:00; Stop 07/13/18 at 11:19; Status DC Polyethylene Glycol (miraLAX PACKET) 17 gm BID PO Last administered on at 11:45; Start 07/12/18 at 21:00 Topiramate (Topamax) 100 mg BID PO Last administered on 07/14/18at 20:52; Start 07/12/18 at 21:00 Hydrochlorothiazide (Microzide) 12.5 mg DAILY PO Last administered on at 11:44; Start 07/13/18 at 09:00 Ketorolac Tromethamine (Toradol 30mg Vial) 30 mg PRN Q6HRS PRN IV MILD - MODERATE PAIN; Start 07/12/18 at 20:00; Stop 07/17/18 at 19:59 Lactobacillus Rhamnosus (Culturelle) 1 cap BID PO Last administered on at 20:54; Start 07/13/18 at 09:00 Ciprofloxacin/ Dextrose 200 ml @ 200 mls/hr Q12H IV Last administered on at 23:30; Start 07/13/18 at 11:00 Metronidazole 100 ml @ 100 mls/hr Q8HRS IV Last administered on 07/15/18at 05: 58; Start 07/13/18 at 09:00 Potassium Chloride (Klor-Con) 40 meq 1X ONCE PO Last administered on at 09:26; Start 07/13/18 at 08:45; Stop 07/13/18 at 08:52; Status DC Potassium Chloride (Klor-Con) 40 meq DAILYWBKFT PO Last administered on at 11:45; Start 07/14/18 at 08:00 Loperamide HCl (Imodium) 2 mg PRN Q15MIN PRN PO DIARRHEA; Start 07/13/18 at 08: 45 Ondansetron HCl (Zofran) 4 mg PRN Q6HRS PRN IV NAUSEA/VOMITING; Start 07/13/18 at 08:45 Ondansetron HCl (Zofran Odt) 4 mg PRN Q6HRS PRN PO NAUSEA/VOMITING; Start 07/13 at 08:45 Acetaminophen (Tylenol) 500 mg PRN Q6HRS PRN PO MILD PAIN / TEMP; Start at 08:45 Acetaminophen/ Hydrocodone Bitart (Lortab 5/325) 1 tab PRN Q4HRS PRN PO PAIN MODERATE TO SEVERE; Start 07/13/18 at 08:45 Sodium Chloride 1,000 ml @ 100 mls/hr 1X ONCE IV Last administered on at 09:33; Start 07/13/18 at 09:00; Stop 07/13/18 at 18:59; Status DC Oxcarbazepine (Trileptal) 900 mg BID PO Last administered on 07/14/18at 20:53; Start 07/13/18 at 21:00 Bisacodyl (Dulcolax Tab) 10 mg 1X ONCE PO Last administered on 07/13/18at 17:07 ; Start 07/13/18 at 17:00; Stop 07/13/18 at 17:01; Status DC Polyethylene Glycol (miraLAX Powder BULK BOTTLE) 238 gm 1X ONCE PO Last administered on 07/13/18at 19:35; Start 07/13/18 at 19:00; Stop 07/13/18 at 19:01 ; Status DC Sodium Chloride (Normal Saline Flush) 3 ml QSHIFT PRN IV AFTER MEDS AND BLOOD DRAWS; Start 07/13/18 at 16:45 Sodium Chloride (Normal Saline Flush) 3 ml QSHIFT PRN IV AFTER MEDS AND BLOOD DRAWS; Start 07/13/18 at 16:45; Status UNV Benzocaine (Hurricaine One) 1 spray STK-MED ONCE .ROUTE ; Start 07/14/18 at 07: 58; Stop 07/14/18 at 07:59; Status DC Midazolam HCl (Versed) 5 mg STK-MED ONCE .ROUTE ; Start 07/14/18 at 07:59; Stop 07/14/18 at 08:00; Status DC Fentanyl Citrate (Fentanyl 2ml Vial) 100 mcg STK-MED ONCE .ROUTE ; Start at 07:59; Stop 07/14/18 at 08:00; Status DC Propofol 40 ml @ As Directed STK-MED ONCE IV ; Start 07/14/18 at 08:34; Stop at 08:35; Status DC Lidocaine HCl (Lidocaine Pf 2% Vial) 5 ml STK-MED ONCE .ROUTE ; Start 07/14/18 at 08:34; Stop 07/14/18 at 08:35; Status DC Cefazolin Sodium/ Dextrose 50 ml @ 100 mls/hr 1X PREOP PRN IV integration aide to OR Last administered on 07/15/18at 09:40; Start 07/15/18 at 06:00; Stop 07/15/18 at 18:00 Metronidazole 100 ml @ 100 mls/hr 1X PREOP PRN IV integration aide to OR; Start at 06:00; Stop 07/15/18 at 18:00 Fentanyl Citrate (Fentanyl 2ml Vial) 25 mcg PRN Q5MIN PRN IV MILD PAIN; Start 07/15/18 at 07:00; Stop 07/15/18 at 21:00 Fentanyl Citrate (Fentanyl 2ml Vial) 50 mcg PRN Q5MIN PRN IV MODERATE TO SEVERE PAIN; Start 07/15/18 at 07:00; Stop 07/15/18 at 21:00 Morphine Sulfate (Morphine Sulfate) 1 mg PRN Q10MIN PRN IV SEVERE PAIN; Start 07/15/18 at 07:00; Stop 07/15/18 at 21:00 Ringer's Solution 1,000 ml @ 30 mls/hr Q24H IV ; Start 07/15/18 at 07:00; Stop 07/15/18 at 18:59 Lidocaine HCl (Xylocaine-Mpf 1% 2ml Vial) 2 ml PRN 1X PRN ID IV START; Start at 07:00; Stop 07/15/18 at 21:00 Hydromorphone HCl (Dilaudid) 0.5 mg PRN Q10MIN PRN IV SEV PAIN, Second choice; Start 07/15/18 at 07:00; Stop 07/15/18 at 21:00 Prochlorperazine Edisylate (Compazine) 5 mg PACU PRN PRN IV NAUSEA, MRX1; Start 07/15/18 at 07:00; Stop 07/15/18 at 21:00 Epinephrine HCl (Adrenalin) 30 mg STK-MED ONCE .ROUTE ; Start 07/15/18 at 08:02 ; Stop 07/15/18 at 09:03; Status DC Bupivacaine HCl (Sensorcaine Mpf 0.25%) 30 ml STK-MED ONCE .ROUTE ; Start at 08:02; Stop 07/15/18 at 09:03; Status DC Sevoflurane (Ultane) 90 ml STK-MED ONCE IH ; Start 07/15/18 at 09:12; Stop 07/15 at 09:13; Status DC Midazolam HCl (Versed) 2 mg STK-MED ONCE .ROUTE ; Start 07/15/18 at 09:12; Stop 07/15/18 at 09:13; Status DC Fentanyl Citrate (Fentanyl 2ml Vial) 100 mcg STK-MED ONCE .ROUTE ; Start at 09:12; Stop 07/15/18 at 09:13; Status DC Glycopyrrolate (Robinul) 1 mg STK-MED ONCE .ROUTE ; Start 07/15/18 at 09:13; Stop 07/15/18 at 09:14; Status DC Neostigmine Methylsulfate (Neostigmine Methylsulfate) 5 mg STK-MED ONCE .ROUTE ; Start 07/15/18 at 09:13; Stop 07/15/18 at 09:14; Status DC Rocuronium [place] (Zemuron) 50 mg STK-MED ONCE .ROUTE ; Start 07/15/18 at 09:13 ; Stop 07/15/18 at 09:14; Status DC Dexamethasone Sodium Phosphate (Decadron) 20 mg STK-MED ONCE .ROUTE ; Start at 09:13; Stop 07/15/18 at 09:14; Status DC Ketorolac Tromethamine (Toradol For Or Only) 30 mg STK-MED ONCE INJ ; Start at 09:13; Stop 07/15/18 at 09:14; Status DC Propofol 20 ml @ As Directed STK-MED ONCE IV ; Start 07/15/18 at 09:13; Stop at 09:14; Status DC Ondansetron HCl (Zofran) 4 mg STK-MED ONCE .ROUTE ; Start 07/15/18 at 09:13; Stop 07/15/18 at 09:14; Status DC Phenylephrine HCl (PHENYLEPHRINE in 0.9% NACL PF) 1 mg STK-MED ONCE IV ; Start 07/15/18 at 09:53; Stop 07/15/18 at 09:54; Status DC Fentanyl Citrate (Fentanyl 2ml Vial) 100 mcg STK-MED ONCE .ROUTE ; Start at 10:05; Stop 07/15/18 at 10:06; Status DC Esmolol HCl (Brevibloc) 100 mg STK-MED ONCE IV ; Start 07/15/18 at 10:09; Stop 07/15/18 at 10:10; Status DC Rocuronium [place] (Zemuron) 50 mg STK-MED ONCE .ROUTE ; Start 07/15/18 at 10:10 ; Stop 07/15/18 at 10:11; Status DC Active Scripts Active Reported Amitiza (Lubiprostone) 8 Mcg Capsule 1 Cap PO BID Miralax (Polyethylene Glycol 3350) 17 Gm Powd.pack 1 Packet PO BID Zyrtec (Cetirizine Hcl) 10 Mg Tablet 1 Tab PO DAILY Atorvastatin Calcium 20 Mg Tablet 20 Mg PO HS Topiramate 100 Mg Tablet 1 Tab PO BID Oxcarbazepine 300 Mg Tablet 1 Tab PO BID Lisinopril-Hctz 10-12.5 Mg Tab (Lisinopril/Hydrochlorothiazide) 1 Each Tablet 1 Tab PO DAILY Vitals/I & O Vital Sign - Last 24 Hours 07/14/18 07/14/18 07/14/18 07/14/18 11:00 11:43 15:00 19:00 Temp 97.6 97.6 98.1 97.6 97.6 98.1 Pulse 69 69 80 65 Resp 20 20 18 B/P (MAP) 123/75 (91) 123/75 108/72 (84) 103/53 (70) Pulse Ox 100 98 96 O2 Delivery Room Air Room Air Room Air 07/14/18 07/14/18 07/15/18 07/15/18 20:00 22:47 03:00 07:00 Temp 97.9 97.7 97.9 97.9 97.7 97.9 Pulse 67 62 66 Resp 17 15 18 B/P (MAP) 87/50 (62) 111/67 (82) 107/69 (82) Pulse Ox 97 97 100 O2 Delivery Room Air Room Air Room Air Room Air 07/15/18 07/15/18 08:00 09:16 Temp 97.7 97.7 Pulse 62 Resp 20 B/P (MAP) 101/59 Pulse Ox 100 O2 Delivery Room Air Room Air Intake and Output 07/14/18 07/14/18 07/15/18 15:00 23:00 07:00 Intake Total 600 ml 950 ml Output Total 0 ml Balance 600 ml 950 ml 0 ml AGUSTÍN CARMONA MD Jul 15, 2018 10:40
[2018-07-15] MEDS: CIPROFLOXACIN 400MG PREMIX 200 ML IV SCH ×2 (10:45→23:43)
[2018-07-15] MEDS ORDERED: ePHEDrine PF IN SALINE 50 MG/5 ML DISP.SYRIN IV ONE (11:02)
--- NOTE | 2018-07-15 12:48 | PDOC ---
Objective: Vital Signs: Vital Signs Date Time Temp Pulse Resp B/P (MAP) Pulse Ox O2 Delivery O2 Flow Rate FiO2 07/15/18 09:16 97.7 62 20 101/59 100 Room Air 97.7 PE: Out of room. A/P: Cecal mass -- To OR for resection today, will follow. ARVIND HUERTA Jul 15, 2018 12:48
[2018-07-15] MEDS: fentaNYL PF VIAL 100 MCG/2 ML VIAL IV PRN ×2 (13:05→13:55)
--- NOTE | 2018-07-15 13:20 | PDOC4 ---
Operative Note Operative Note Operative Note: Preoperative Diagnosis: Cecal cancer Postoperative Diagnosis: Same Procedure: Laparoscopic converted to open right colon resection Surgeon: Sylvain Php Consultant: Neal HIGUERA Anesthesia: Gen EBL: 50 ml Specimen: Right colon to pathology Drains: None Complications: None Indication: The patient is a 47 and female who is omitted with abdominal pain. Her evaluation identified a right colon tumor with malignant features. The plan is to proceed with a colon resection. We will attempt a laparoscopic approach however she understands that open surgery may be necessary. The risks of surgery were also discussed which include bleeding, infection, anastomotic leak , pain, visceral injury, hernia formation, anesthetic risk, potential need for additional surgery or procedure. She understands and would like to proceed. Description: The patient was taken to the operating room and placed supine on the operating table. Gen. anesthesia was performed. The abdomen was prepped with ChloraPrep and draped in a standard surgical manner. In the left abdomen a visualized 5 mm trocar was inserted into the peritoneal cavity. A pneumoperitoneum was created and the laparoscope introduced. In the left lower quadrant a 5 mm trocar was inserted. In the lower midabdomen and another 5 mm trocar was inserted. Attention was directed to the right lower quadrant. We began mobilizing the cecum and some of the lateral attachments of the appendix. Lateral attachments were freed up using the Harmonic scalpel. This was carried superiorly to the level of the hepatic flexure. The attachments of the hepatic flexure. Particularly dense and difficult to mobilize. Another 5 mm trochars placed in the upper midabdomen to facilitate this. With further attempts there seemed to be concern for potential tumor involvement near the hepatic flexure from a seemingly sizable tumor. This made for the laparoscopic dissection difficult and we elected to proceed with an open approach. An upper vertical midline incision was made in the skin which was carried below the umbilicus. Cautery dissection was carried onto the fascia. The fascia and peritoneum were then opened and the abdominal cavity was explored. The Omni retractor was used for the remainder the case to facilitate exposure. We then directed our attention the hepatic flexure were able to appreciate a very sizable tumor with associated ink tattooing. We freed up some of the remaining hepatic attachments and the LigaSure device assisted with this. The duodenal sweep was quite close to the level of the tumor and this required careful dissection. After freeing this up I did excise a rim of tissue just anterior to the duodenum labeled duodenal margin. We then finished mobilizing the entire right colon. The small bowel was divided in the distal ileum using a [id number] stapling device. Similarly the proximal transverse colon was divided using the stapler. The mesentery of the right colon was then dissected. Blood vessels were freed up and ligated with 2-0 Vicryl and divided. The entire right colon was then fully excised and sent off to pathology. Gross pathologic evaluation confirmed a large tumor with clear margins. A stapled side to side functional end-to-end anastomosis was then constructed. The stapler was introduced in the mesenteric limbs of both loops of bowel. The stapler was then deployed creating the anastomosis. The common enterotomy was then closed with 3-0 PDS. The staple lines were then oversewn with 3-0 Vicryl in the seromuscular layer. The mesenteric defect was then closed with 2-0 Vicryl. The abdominal cavity was irrigated with sterile saline. Hemostasis was good and no other abnormalities were identified. The fascia was then closed with a running 1 PDS suture. A [place] drain was left in subcutaneous space which exited inferiorly. The skin was then closed with 4-0 Monocryl and a sterile dressing was applied. The patient tolerated the procedure well and was sent to the recovery room in stable condition. At the end the case all counts were correct. ROSHAN MANN MD Jul 15, 2018 13:20
[2018-07-15] MEDS: MORPHINE SULFATE/PF 30 ML IV PRN (14:26)
[2018-07-15] MEDS: ATORVASTATIN CALCIUM 20 MG TABLET PO SCH (21:00)
[2018-07-15] MEDS: PHENOL ORAL SPRAY 177ML BOTTLE. PO PRN (21:55)
[2018-07-16 03:17] VITALS: BP 84/49
[2018-07-16] MEDS ORDERED: IV NORMAL SALINE 1000ML BAG 1,000 ML IV ONE ×2 (03:45→04:45)
[2018-07-16] MEDS: MORPHINE SULFATE/PF 30 ML IV PRN ×2 (04:27→19:50)
[2018-07-16] MEDS: IV NORMAL SALINE 1000ML BAG 1,000 ML IV SCH ×4 (06:10→22:42)
[2018-07-16 06:57] LABS: BASO % 0 % (0-3); EOS % 0 % (0-3); HEMATOCRIT 28.7 % (36.0-47.0); HEMOGLOBIN 9.6 g/dL (12.0-15.5); LYMPH # 1.4 x10^3/uL (1.0-4.8); LYMPH % 18 % (24-48); MEAN CORPUSCULAR HEMOGLOBIN 26 pg (25-35); MEAN CORPUSCULAR HGB CONC 33 g/dL (31-37); MEAN CORPUSCULAR VOLUME 79 fL (79-100); MONO # 0.5 x10^3/uL (0.0-1.1); MONO % 7 % (0-9); NEUT % 75 % (31-73); PLATELET COUNT 262 x10^3/uL (140-400); RED BLOOD COUNT 3.63 x10^6/uL (3.50-5.40); RED CELL DISTRIBUTION WIDTH 17.9 % (11.5-14.5); WHITE BLOOD COUNT 8.1 x10^3/uL (4.0-11.0)
[2018-07-16 07:00] VITALS: BP_SYST 84; BP_SYST 99; BP_DIAS 49; BP_DIAS 64
[2018-07-16 07:29] LABS: CALCIUM 8.7 mg/dL (8.5-10.1); CREATININE 1.2 mg/dL (0.6-1.0); GFR 58.8; MAGNESIUM 1.9 mg/dL (1.8-2.4); POTASSIUM 3.6 mmol/L (3.5-5.1)
[2018-07-16] MEDS: POTASSIUM CHLORIDE 20 MEQ TABLET.ER. PO SCH (08:00)
[2018-07-16] MEDS: CETIRIZINE HCL 10 MG TABLET. PO SCH (09:00)
[2018-07-16] MEDS: TOPIRAMATE 25 MG TABLET. PO SCH ×3 (09:00→20:26)
[2018-07-16] MEDS: LISINOPRIL 10 MG TABLET PO SCH (09:00)
[2018-07-16] MEDS: POLYETHYLENE GLYCOL 3350 17 GM PACKET. PO SCH ×2 (09:00→20:27)
[2018-07-16] MEDS: OXcarbazepine 300 MG TABLET PO SCH ×3 (09:00→20:27)
[2018-07-16] MEDS: hydroCHLOROthiazide 12.5 MG CAPSULE PO SCH (09:00)
[2018-07-16] MEDS: LACTOBACILLUS RHAMNOSUS GG 1 CAPSULE. PO SCH ×2 (09:00→20:27)
--- NOTE | 2018-07-16 09:49 | PDOC ---
PROGRESS NOTES Subjective Subjective doing ok, a bit tired Objective Objective Vital Signs Date Time Temp Pulse Resp B/P (MAP) Pulse Ox O2 Delivery O2 Flow Rate FiO2 07/16/18 07:30 Room Air 07/16/18 07:00 97.9 78 16 99/64 (76) 97 97.9 07/15/18 13:05 8.0 Intake and Output 07/16/18 07:00 Intake Total 2644 ml Output Total 650 ml Balance 1994 ml Intake Oral 15 ml IV Total 1900 ml Other 729 ml Output Urine Total 550 ml Stool Total 50 ml Estimated Blood Loss 50 ml Physical Exam Abdomen: Soft (dressing clean) Assessment Assessment Problems Medical Problems: (1) Abdominal pain Status: Acute (2) Bandemia Status: Acute (3) Leukocytosis Status: Acute (4) Nausea vomiting and diarrhea Status: Acute (5) UTI (urinary tract infection) Status: Acute Plan Plan of Care supportive care, [facility], [place] tomorrow, ice chips Comment Review of Relevant I have reviewed the following items dawson (where applicable) has been applied. Labs Laboratory Tests Test 07/14/18 11:00 07/16/18 06:30 White Blood Count 7.2 x10^3/uL (4.0-11.0) 8.1 x10^3/uL (4.0-11.0) Red Blood Count 4.22 x10^6/uL (3.50-5.40) 3.63 x10^6/uL (3.50-5.40) Hemoglobin 10.9 g/dL (12.0-15.5) 9.6 g/dL (12.0-15.5) Hematocrit 33.3 % (36.0-47.0) 28.7 % (36.0-47.0) Mean Corpuscular Volume 79 fL (79-100) 79 fL (79-100) Mean Corpuscular Hemoglobin 26 pg (25-35) 26 pg (25-35) Mean Corpuscular Hemoglobin Concent 33 g/dL (31-37) 33 g/dL (31-37) Red Cell Distribution Width 17.8 % (11.5-14.5) 17.9 % (11.5-14.5) Platelet Count 297 x10^3/uL (140-400) 262 x10^3/uL (140-400) Neutrophils (%) (Auto) 72 % (31-73) 75 % (31-73) Lymphocytes (%) (Auto) 21 % (24-48) 18 % (24-48) Monocytes (%) (Auto) 4 % (0-9) 7 % (0-9) Eosinophils (%) (Auto) 3 % (0-3) 0 % (0-3) Basophils (%) (Auto) 1 % (0-3) 0 % (0-3) Neutrophils # (Auto) 5.2 x10^3uL (1.8-7.7) 6.0 x10^3uL (1.8-7.7) Lymphocytes # (Auto) 1.5 x10^3/uL (1.0-4.8) 1.4 x10^3/uL (1.0-4.8) Monocytes # (Auto) 0.3 x10^3/uL (0.0-1.1) 0.5 x10^3/uL (0.0-1.1) Eosinophils # (Auto) 0.2 x10^3/uL (0.0-0.7) 0.0 x10^3/uL (0.0-0.7) Basophils # (Auto) 0.0 x10^3/uL (0.0-0.2) 0.0 x10^3/uL (0.0-0.2) Erythrocyte Sedimentation Rate 38 (0-25) Sodium Level 142 mmol/L (136-145) 142 mmol/L (136-145) Potassium Level 3.6 mmol/L (3.5-5.1) 3.6 mmol/L (3.5-5.1) Chloride Level 108 mmol/L (98-107) 109 mmol/L (98-107) Carbon Dioxide Level 24 mmol/L (21-32) 21 mmol/L (21-32) Anion Gap 10 (6-14) 12 (6-14) Blood Urea Nitrogen 7 mg/dL (7-20) 10 mg/dL (7-20) Creatinine 1.0 mg/dL (0.6-1.0) 1.2 mg/dL (0.6-1.0) Estimated GFR (Cockcroft-Gault) 72.5 58.8 Glucose Level 97 mg/dL (70-99) 87 mg/dL (70-99) Calcium Level 9.2 mg/dL (8.5-10.1) 8.7 mg/dL (8.5-10.1) Magnesium Level 1.9 mg/dL (1.8-2.4) Laboratory Tests Test 07/16/18 06:30 White Blood Count 8.1 x10^3/uL (4.0-11.0) Red Blood Count 3.63 x10^6/uL (3.50-5.40) Hemoglobin 9.6 g/dL (12.0-15.5) Hematocrit 28.7 % (36.0-47.0) Mean Corpuscular Volume 79 fL (79-100) Mean Corpuscular Hemoglobin 26 pg (25-35) Mean Corpuscular Hemoglobin Concent 33 g/dL (31-37) Red Cell Distribution Width 17.9 % (11.5-14.5) Platelet Count 262 x10^3/uL (140-400) Neutrophils (%) (Auto) 75 % (31-73) Lymphocytes (%) (Auto) 18 % (24-48) Monocytes (%) (Auto) 7 % (0-9) Eosinophils (%) (Auto) 0 % (0-3) Basophils (%) (Auto) 0 % (0-3) Neutrophils # (Auto) 6.0 x10^3uL (1.8-7.7) Lymphocytes # (Auto) 1.4 x10^3/uL (1.0-4.8) Monocytes # (Auto) 0.5 x10^3/uL (0.0-1.1) Eosinophils # (Auto) 0.0 x10^3/uL (0.0-0.7) Basophils # (Auto) 0.0 x10^3/uL (0.0-0.2) Sodium Level 142 mmol/L (136-145) Potassium Level 3.6 mmol/L (3.5-5.1) Chloride Level 109 mmol/L (98-107) Carbon Dioxide Level 21 mmol/L (21-32) Anion Gap 12 (6-14) Blood Urea Nitrogen 10 mg/dL (7-20) Creatinine 1.2 mg/dL (0.6-1.0) Estimated GFR (Cockcroft-Gault) 58.8 Glucose Level 87 mg/dL (70-99) Calcium Level 8.7 mg/dL (8.5-10.1) Magnesium Level 1.9 mg/dL (1.8-2.4) Microbiology 07/12/18 Urine Culture - Final, Complete 07/12/18 Urine Culture Result 1 (SHEBA) - Final, Complete Medications Current Medications Sodium Chloride 1,000 ml @ 1,000 mls/hr 1X ONCE IV Last administered on at 09:37; Start 07/12/18 at 09:15; Stop 07/12/18 at 10:14; Status DC Ondansetron HCl (Zofran) 4 mg 1X ONCE IV Last administered on 07/12/18at 09:43 ; Start 07/12/18 at 09:15; Stop 07/12/18 at 09:16; Status DC Dicyclomine HCl (Bentyl) 20 mg 1X ONCE IM Last administered on 07/12/18at 10:44 ; Start 07/12/18 at 09:15; Stop 07/12/18 at 09:16; Status DC Iohexol (Omnipaque 300 Mg/ml) 75 ml 1X ONCE IV Last administered on 07/12/18at 10:30; Start 07/12/18 at 10:30; Stop 07/12/18 at 10:32; Status DC Info (CONTRAST GIVEN -- Rx MONITORING) 1 each PRN DAILY PRN MC SEE COMMENTS; Start 07/12/18 at 10:45; Stop 07/14/18 at 10:44; Status DC Metronidazole 100 ml @ 100 mls/hr 1X ONCE IV Last administered on 07/12/18at 13:10; Start 07/12/18 at 12:30; Stop 07/12/18 at 13:29; Status DC Ciprofloxacin/ Dextrose 200 ml @ 200 mls/hr Q12HR IV Last administered on 07/12at 23:00; Start 07/12/18 at 13:30; Stop 07/13/18 at 08:57; Status DC Morphine Sulfate (Morphine Sulfate) 2 mg PRN Q2HR PRN IV SEVERE PAIN Last administered on 07/13/18at 16:10; Start 07/12/18 at 16:00 Atorvastatin Calcium (Lipitor) 20 mg HS PO Last administered on 07/14/18at 20:54 ; Start 07/12/18 at 21:00 Cetirizine HCl (ZyrTEC) 10 mg DAILY PO Last administered on 07/14/18at 11:43; Start 07/12/18 at 16:00 Lubiprostone (Amitiza) 8 mcg BID PO Last administered on 07/13/18 08:23; Start 07/12/18 at 21:00; Stop 07/13/18 at 08:49; Status DC Lisinopril (Prinivil) 10 mg DAILY PO Last administered on 07/14/18at 11:43; Start 07/13/18 at 09:00 Oxcarbazepine (Trileptal) 300 mg BID PO Last administered on 07/13/18at 08:23; Start 07/12/18 at 21:00; Stop 07/13/18 at 11:19; Status DC Polyethylene Glycol (miraLAX PACKET) 17 gm BID PO Last administered on at 11:45; Start 07/12/18 at 21:00 Topiramate (Topamax) 100 mg BID PO Last administered on 07/14/18at 20:52; Start 07/12/18 at 21:00 Hydrochlorothiazide (Microzide) 12.5 mg DAILY PO Last administered on at 11:44; Start 07/13/18 at 09:00 Ketorolac Tromethamine (Toradol 30mg Vial) 30 mg PRN Q6HRS PRN IV MILD - MODERATE PAIN; Start 07/12/18 at 20:00; Stop 07/17/18 at 19:59 Lactobacillus Rhamnosus (Culturelle) 1 cap BID PO Last administered on at 20:54; Start 07/13/18 at 09:00 Ciprofloxacin/ Dextrose 200 ml @ 200 mls/hr Q12H IV Last administered on at 23:43; Start 07/13/18 at 11:00 Metronidazole 100 ml @ 100 mls/hr Q8HRS IV Last administered on 07/16/18at 06: 09; Start 07/13/18 at 09:00 Potassium Chloride (Klor-Con) 40 meq 1X ONCE PO Last administered on at 09:26; Start 07/13/18 at 08:45; Stop 07/13/18 at 08:52; Status DC Potassium Chloride (Klor-Con) 40 meq DAILYWBKFT PO Last administered on at 11:45; Start 07/14/18 at 08:00 Loperamide HCl (Imodium) 2 mg PRN Q15MIN PRN PO DIARRHEA; Start 07/13/18 at 08: 45 Ondansetron HCl (Zofran) 4 mg PRN Q6HRS PRN IV NAUSEA/VOMITING; Start 07/13/18 at 08:45 Ondansetron HCl (Zofran Odt) 4 mg PRN Q6HRS PRN PO NAUSEA/VOMITING; Start 07/13 at 08:45 Acetaminophen (Tylenol) 500 mg PRN Q6HRS PRN PO MILD PAIN / TEMP; Start at 08:45 Acetaminophen/ Hydrocodone Bitart (Lortab 5/325) 1 tab PRN Q4HRS PRN PO PAIN MODERATE TO SEVERE; Start 07/13/18 at 08:45 Sodium Chloride 1,000 ml @ 100 mls/hr 1X ONCE IV Last administered on at 09:33; Start 07/13/18 at 09:00; Stop 07/13/18 at 18:59; Status DC Oxcarbazepine (Trileptal) 900 mg BID PO Last administered on 07/14/18at 20:53; Start 07/13/18 at 21:00 Bisacodyl (Dulcolax Tab) 10 mg 1X ONCE PO Last administered on 07/13/18at 17:07 ; Start 07/13/18 at 17:00; Stop 07/13/18 at 17:01; Status DC Polyethylene Glycol (miraLAX Powder BULK BOTTLE) 238 gm 1X ONCE PO Last administered on 07/13/18at 19:35; Start 07/13/18 at 19:00; Stop 07/13/18 at 19:01 ; Status DC Sodium Chloride (Normal Saline Flush) 3 ml QSHIFT PRN IV AFTER MEDS AND BLOOD DRAWS; Start 07/13/18 at 16:45 Sodium Chloride (Normal Saline Flush) 3 ml QSHIFT PRN IV AFTER MEDS AND BLOOD DRAWS; Start 07/13/18 at 16:45; Status UNV Benzocaine (Hurricaine One) 1 spray STK-MED ONCE .ROUTE ; Start 07/14/18 at 07: 58; Stop 07/14/18 at 07:59; Status DC Midazolam HCl (Versed) 5 mg STK-MED ONCE .ROUTE ; Start 07/14/18 at 07:59; Stop 07/14/18 at 08:00; Status DC Fentanyl Citrate (Fentanyl 2ml Vial) 100 mcg STK-MED ONCE .ROUTE ; Start at 07:59; Stop 07/14/18 at 08:00; Status DC Propofol 40 ml @ As Directed STK-MED ONCE IV ; Start 07/14/18 at 08:34; Stop at 08:35; Status DC Lidocaine HCl (Lidocaine Pf 2% Vial) 5 ml STK-MED ONCE .ROUTE ; Start 07/14/18 at 08:34; Stop 07/14/18 at 08:35; Status DC Cefazolin Sodium/ Dextrose 50 ml @ 100 mls/hr 1X PREOP PRN IV [employer] spacelift to OR Last administered on 07/15/18at 09:40; Start 07/15/18 at 06:00; Stop 07/15/18 at 18:00; Status DC Metronidazole 100 ml @ 100 mls/hr 1X PREOP PRN IV [employer] and missile [employer] spacelift to OR; Start at 06:00; Stop 07/15/18 at 18:00; Status DC Fentanyl Citrate (Fentanyl 2ml Vial) 25 mcg PRN Q5MIN PRN IV MILD PAIN; Start 07/15/18 at 07:00; Stop 07/15/18 at 21:00; Status DC Fentanyl Citrate (Fentanyl 2ml Vial) 50 mcg PRN Q5MIN PRN IV MODERATE TO SEVERE PAIN Last administered on 07/15/18at 13:55; Start 07/15/18 at 07:00; Stop 07/15/18 at 21:00; Status DC Morphine Sulfate (Morphine Sulfate) 1 mg PRN Q10MIN PRN IV SEVERE PAIN; Start 07/15/18 at 07:00; Stop 07/15/18 at 21:00; Status DC Ringer's Solution 1,000 ml @ 30 mls/hr Q24H IV ; Start 07/15/18 at 07:00; Stop 07/15/18 at 18:59; Status DC Lidocaine HCl (Xylocaine-Mpf 1% 2ml Vial) 2 ml PRN 1X PRN ID IV START; Start at 07:00; Stop 07/15/18 at 21:00; Status DC Hydromorphone HCl (Dilaudid) 0.5 mg PRN Q10MIN PRN IV SEV PAIN, Second choice; Start 07/15/18 at 07:00; Stop 07/15/18 at 21:00; Status DC Prochlorperazine Edisylate (Compazine) 5 mg PACU PRN PRN IV NAUSEA, MRX1; Start 07/15/18 at 07:00; Stop 07/15/18 at 21:00; Status DC Epinephrine HCl (Adrenalin) 30 mg STK-MED ONCE .ROUTE ; Start 07/15/18 at 08:02 ; Stop 07/15/18 at 09:03; Status DC Bupivacaine HCl (Sensorcaine Mpf 0.25%) 30 ml STK-MED ONCE .ROUTE ; Start at 08:02; Stop 07/15/18 at 09:03; Status DC Sevoflurane (Ultane) 90 ml STK-MED ONCE IH ; Start 07/15/18 at 09:12; Stop 07/15 at 09:13; Status DC Midazolam HCl (Versed) 2 mg STK-MED ONCE .ROUTE ; Start 07/15/18 at 09:12; Stop 07/15/18 at 09:13; Status DC Fentanyl Citrate (Fentanyl 2ml Vial) 100 mcg STK-MED ONCE .ROUTE ; Start at 09:12; Stop 07/15/18 at 09:13; Status DC Glycopyrrolate (Robinul) 1 mg STK-MED ONCE .ROUTE ; Start 07/15/18 at 09:13; Stop 07/15/18 at 09:14; Status DC Neostigmine Methylsulfate (Neostigmine Methylsulfate) 5 mg STK-MED ONCE .ROUTE ; Start 07/15/18 at 09:13; Stop 07/15/18 at 09:14; Status DC Rocuronium [place] (Zemuron) 50 mg STK-MED ONCE .ROUTE ; Start 07/15/18 at 09:13 ; Stop 07/15/18 at 09:14; Status DC Dexamethasone Sodium Phosphate (Decadron) 20 mg STK-MED ONCE .ROUTE ; Start at 09:13; Stop 07/15/18 at 09:14; Status DC Ketorolac Tromethamine (Toradol For Or Only) 30 mg STK-MED ONCE INJ ; Start at 09:13; Stop 07/15/18 at 09:14; Status DC Propofol 20 ml @ As Directed STK-MED ONCE IV ; Start 07/15/18 at 09:13; Stop at 09:14; Status DC Ondansetron HCl (Zofran) 4 mg STK-MED ONCE .ROUTE ; Start 07/15/18 at 09:13; Stop 07/15/18 at 09:14; Status DC Phenylephrine HCl (PHENYLEPHRINE in 0.9% NACL PF) 1 mg STK-MED ONCE IV ; Start 07/15/18 at 09:53; Stop 07/15/18 at 09:54; Status DC Fentanyl Citrate (Fentanyl 2ml Vial) 100 mcg STK-MED ONCE .ROUTE ; Start at 10:05; Stop 07/15/18 at 10:06; Status DC Esmolol HCl (Brevibloc) 100 mg STK-MED ONCE IV ; Start 07/15/18 at 10:09; Stop 07/15/18 at 10:10; Status DC Rocuronium [place] (Zemuron) 50 mg STK-MED ONCE .ROUTE ; Start 07/15/18 at 10:10 ; Stop 07/15/18 at 10:11; Status DC Ephedrine Sulfate (ePHEDrine PF IN SALINE SYRINGE) 50 mg STK-MED ONCE IV ; Start 07/15/18 at 11:02; Stop 07/15/18 at 11:03; Status DC Fentanyl Citrate (Fentanyl 2ml Vial) 100 mcg STK-MED ONCE .ROUTE ; Start at 11:09; Stop 07/15/18 at 11:10; Status DC Fentanyl Citrate (Fentanyl 2ml Vial) 100 mcg STK-MED ONCE .ROUTE ; Start at 12:51; Stop 07/15/18 at 12:52; Status DC Morphine Sulfate 30 ml @ 0 mls/hr CONT PRN PRN IV PER PROTOCOL Last administered on 07/16/18at 04:27; Start 07/15/18 at 13:30 Fentanyl Citrate (Fentanyl 2ml Vial) 100 mcg STK-MED ONCE .ROUTE ; Start at 13:34; Stop 07/15/18 at 13:35; Status DC Throat Lozenges (Chloraseptic) 1 spray PRN Q3HRS PRN PO SORE THROAT Last administered on 07/15/18at 21:55; Start 07/15/18 at 21:45 Sodium Chloride 1,000 ml @ 1,000 mls/hr 1X ONCE IV Last administered on at 03:45; Start 07/16/18 at 03:45; Stop 07/16/18 at 04:44; Status DC Sodium Chloride 1,000 ml @ 125 mls/hr 1X ONCE IV ; Start 07/16/18 at 04:45; Stop 07/16/18 at 12:44; Status Cancel Sodium Chloride 1,000 ml @ 125 mls/hr Q8H IV Last administered on 07/16/18at 06 :10; Start 07/16/18 at 05:00 Active Scripts Active Reported Amitiza (Lubiprostone) 8 Mcg Capsule 1 Cap PO BID Miralax (Polyethylene Glycol 3350) 17 Gm Powd.pack 1 Packet PO BID Zyrtec (Cetirizine Hcl) 10 Mg Tablet 1 Tab PO DAILY Atorvastatin Calcium 20 Mg Tablet 20 Mg PO HS Topiramate 100 Mg Tablet 1 Tab PO BID Oxcarbazepine 300 Mg Tablet 1 Tab PO BID Lisinopril-Hctz 10-12.5 Mg Tab (Lisinopril/Hydrochlorothiazide) 1 Each Tablet 1 Tab PO DAILY Vitals/I & O Vital Sign - Last 24 Hours 07/15/18 07/15/18 07/15/18 07/15/18 12:42 12:42 12:57 13:05 Temp 98.6 98.6 Pulse 98 88 Resp 16 17 16 B/P (MAP) 107/63 100/64 Pulse Ox 100 100 99 O2 Delivery Mask Simple Mask Simple Mask Simple Mask O2 Flow Rate 8 8 8 8.0 07/15/18 07/15/18 07/15/18 07/15/18 13:12 13:27 13:42 13:43 Pulse 64 84 86 Resp 16 14 18 B/P (MAP) 85/52 102/63 101/71 Pulse Ox 99 97 96 O2 Delivery Room Air Room Air Room Air Room Air 07/15/18 07/15/18 07/15/18 07/15/18 13:55 13:57 14:12 14:26 Temp 98.6 98.6 Pulse 80 74 Resp 14 14 16 15 B/P (MAP) 103/66 102/73 Pulse Ox 96 96 97 96 O2 Delivery Room Air Room Air Room Air Room Air 07/15/18 07/15/18 07/15/18 07/15/18 14:55 15:00 15:15 15:30 Temp 97.5 97.5 97.5 97.5 97.5 97.5 97.5 97.5 Pulse 86 90 90 88 Resp 20 20 20 20 B/P (MAP) 105/69 (81) 100/67 (78) 109/66 (80) 110/68 (82) Pulse Ox 98 98 98 98 O2 Delivery Room Air Room Air Room Air Room Air 07/15/18 07/15/18 07/15/18 07/15/18 15:34 15:45 16:15 16:45 Temp 97.5 97.5 97.5 97.5 97.5 97.5 Pulse 85 89 95 Resp 20 18 18 B/P (MAP) 103/65 (78) 107/70 (82) 108/67 (81) Pulse Ox 99 98 98 O2 Delivery Room Air Room Air Room Air Room Air 07/15/18 07/15/18 07/15/1818 19:20 19:40 23:13 03:17 Temp 98.0 98.0 98.0 98.0 98.0 98.0 Pulse 81 87 78 Resp 18 18 14 B/P (MAP) 99/61 (74) 102/64 (77) 84/49 (61) Pulse Ox 100 98 95 O2 Delivery Room Air Room Air Room Air 07/16/18 07/16/18 07/16/18 07/16/18 04:27 05:10 07:00 07:30 Temp 97.9 97.9 Pulse 78 Resp 16 16 16 B/P (MAP) 99/64 (76) Pulse Ox 97 O2 Delivery Room Air Room Air Room Air Room Air Intake and Output 07/15/18 07/15/18 07/16/18 15:00 23:00 07:00 Intake Total 15 ml 2629 ml Output Total 350 ml 50 ml 250 ml Balance -335 ml -50 ml 2379 ml ROSHAN MANN MD Jul 16, 2018 09:49
[2018-07-16] MEDS: CIPROFLOXACIN 400MG PREMIX 200 ML IV SCH (10:49)
[2018-07-16] MEDS: ENOXAPARIN 40 MG/0.4 ML SYRINGE. SQ SCH (10:50)
[2018-07-16 11:00] VITALS: BP 115/65
[2018-07-16] MEDS: ONDANSETRON PF 4 MG/2 ML VIAL. IV PRN (11:41)
[2018-07-16] MEDS: IPRATRPIUM/ALBUTEROL 0.5/2.5MG 3 ML NEBU. NEB SCH ×3 (12:00→20:01)
--- NOTE | 2018-07-16 12:31 | PDOC ---
Objective: Objective: Reviewed w/ RN - stable post-op. Vital Signs: Vital Signs Date Time Temp Pulse Resp B/P (MAP) Pulse Ox O2 Delivery O2 Flow Rate FiO2 07/16/18 11:00 98.2 89 16 115/65 (82) 98 Room Air 98.2 07/15/18 13:05 8.0 Labs: Laboratory Tests Test 07/16/18 06:30 White Blood Count 8.1 x10^3/uL Red Blood Count 3.63 x10^6/uL Hemoglobin 9.6 g/dL Hematocrit 28.7 % Mean Corpuscular Volume 79 fL Mean Corpuscular Hemoglobin 26 pg Mean Corpuscular Hemoglobin Concent 33 g/dL Red Cell Distribution Width 17.9 % Platelet Count 262 x10^3/uL Neutrophils (%) (Auto) 75 % Lymphocytes (%) (Auto) 18 % Monocytes (%) (Auto) 7 % Eosinophils (%) (Auto) 0 % Basophils (%) (Auto) 0 % Neutrophils # (Auto) 6.0 x10^3uL Lymphocytes # (Auto) 1.4 x10^3/uL Monocytes # (Auto) 0.5 x10^3/uL Eosinophils # (Auto) 0.0 x10^3/uL Basophils # (Auto) 0.0 x10^3/uL Sodium Level 142 mmol/L Potassium Level 3.6 mmol/L Chloride Level 109 mmol/L Carbon Dioxide Level 21 mmol/L Anion Gap 12 Blood Urea Nitrogen 10 mg/dL Creatinine 1.2 mg/dL Estimated GFR (Cockcroft-Gault) 58.8 Glucose Level 87 mg/dL Calcium Level 8.7 mg/dL Magnesium Level 1.9 mg/dL PE: GEN: NAD, up to chair LUNGS: NC NEURO/PSYCH: asleep 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 ARVIND HUERTA Jul 16, 2018 12:31
[2018-07-16 15:00] VITALS: BP 119/71
--- NOTE | 2018-07-16 15:17 | PDOC ---
PROGRESS NOTES Chief Complaint Chief Complaint COLON MASS , cecal mass s/p lap to open colectomy Cholelithiasis. Nonobstructing left intrarenal calculi. Enlarged fibroid uterus. Probable renal cysts. asthma HTN morbid obesity h/o seizure plan: fu wiht sx, npo, on SUGAR MIXER , ice chips ivf dc hctz, monitor bp, lisinopril for now dvt ppx add duoneb, albuterol prn dc abx onco consult, path pending History of Present Illness History of Present Illness Out having surgery for colon mass which is a new diagnosis- dx after EGD colonoscopy this admission Will go to [address] [place] [address] Postop CAT scan: 1. Mural thickening involving the colon in the ileocecal valve region raising the possibility of colonic malignancy. An inflammatory process cannot be excluded. There is mild associated dilatation of the distal small bowel and mild mesenteric adenopathy at this level. 2. Small amount of free fluid in the pelvis. 3. Cholelithiasis. 4. Nonobstructing left intrarenal calculi. 5. Enlarged fibroid uterus. 6. Probable renal cysts. no flatus or BM post op on SUGAR MIXER, frequent using Vitals Vitals Vital Signs Date Time Temp Pulse Resp B/P (MAP) Pulse Ox O2 Delivery O2 Flow Rate FiO2 07/16/18 14:05 98 Room Air 07/16/18 11:00 98.2 89 16 115/65 (82) 98.2 07/15/18 13:05 8.0 Physical Exam General: Alert, Oriented X3, Cooperative, No acute distress Heart: Regular rate, Normal S1, Normal S2, No murmurs Lungs: Clear Abdomen: Soft (dressing clean), Other (no bs. sx wound has pen nory drain) Extremities: No clubbing, No cyanosis Skin: No rashes, No breakdown Labs LABS Laboratory Tests Test 07/16/18 06:30 White Blood Count 8.1 x10^3/uL (4.0-11.0) Red Blood Count 3.63 x10^6/uL (3.50-5.40) Hemoglobin 9.6 g/dL (12.0-15.5) Hematocrit 28.7 % (36.0-47.0) Mean Corpuscular Volume 79 fL (79-100) Mean Corpuscular Hemoglobin 26 pg (25-35) Mean Corpuscular Hemoglobin Concent 33 g/dL (31-37) Red Cell Distribution Width 17.9 % (11.5-14.5) Platelet Count 262 x10^3/uL (140-400) Neutrophils (%) (Auto) 75 % (31-73) Lymphocytes (%) (Auto) 18 % (24-48) Monocytes (%) (Auto) 7 % (0-9) Eosinophils (%) (Auto) 0 % (0-3) Basophils (%) (Auto) 0 % (0-3) Neutrophils # (Auto) 6.0 x10^3uL (1.8-7.7) Lymphocytes # (Auto) 1.4 x10^3/uL (1.0-4.8) Monocytes # (Auto) 0.5 x10^3/uL (0.0-1.1) Eosinophils # (Auto) 0.0 x10^3/uL (0.0-0.7) Basophils # (Auto) 0.0 x10^3/uL (0.0-0.2) Sodium Level 142 mmol/L (136-145) Potassium Level 3.6 mmol/L (3.5-5.1) Chloride Level 109 mmol/L (98-107) Carbon Dioxide Level 21 mmol/L (21-32) Anion Gap 12 (6-14) Blood Urea Nitrogen 10 mg/dL (7-20) Creatinine 1.2 mg/dL (0.6-1.0) Estimated GFR (Cockcroft-Gault) 58.8 Glucose Level 87 mg/dL (70-99) Calcium Level 8.7 mg/dL (8.5-10.1) Magnesium Level 1.9 mg/dL (1.8-2.4) Assessment and Plan Assessmemt and Plan Problems Medical Problems: (1) Abdominal pain Status: Acute (2) Bandemia Status: Acute (3) Leukocytosis Status: Acute (4) Nausea vomiting and diarrhea Status: Acute (5) UTI (urinary tract infection) Status: Acute Comment Review of Relevant I have reviewed the following items dawson (where applicable) has been applied. Labs Laboratory Tests Test 07/16/18 06:30 White Blood Count 8.1 x10^3/uL (4.0-11.0) Red Blood Count 3.63 x10^6/uL (3.50-5.40) Hemoglobin 9.6 g/dL (12.0-15.5) Hematocrit 28.7 % (36.0-47.0) Mean Corpuscular Volume 79 fL (79-100) Mean Corpuscular Hemoglobin 26 pg (25-35) Mean Corpuscular Hemoglobin Concent 33 g/dL (31-37) Red Cell Distribution Width 17.9 % (11.5-14.5) Platelet Count 262 x10^3/uL (140-400) Neutrophils (%) (Auto) 75 % (31-73) Lymphocytes (%) (Auto) 18 % (24-48) Monocytes (%) (Auto) 7 % (0-9) Eosinophils (%) (Auto) 0 % (0-3) Basophils (%) (Auto) 0 % (0-3) Neutrophils # (Auto) 6.0 x10^3uL (1.8-7.7) Lymphocytes # (Auto) 1.4 x10^3/uL (1.0-4.8) Monocytes # (Auto) 0.5 x10^3/uL (0.0-1.1) Eosinophils # (Auto) 0.0 x10^3/uL (0.0-0.7) Basophils # (Auto) 0.0 x10^3/uL (0.0-0.2) Sodium Level 142 mmol/L (136-145) Potassium Level 3.6 mmol/L (3.5-5.1) Chloride Level 109 mmol/L (98-107) Carbon Dioxide Level 21 mmol/L (21-32) Anion Gap 12 (6-14) Blood Urea Nitrogen 10 mg/dL (7-20) Creatinine 1.2 mg/dL (0.6-1.0) Estimated GFR (Cockcroft-Gault) 58.8 Glucose Level 87 mg/dL (70-99) Calcium Level 8.7 mg/dL (8.5-10.1) Magnesium Level 1.9 mg/dL (1.8-2.4) Laboratory Tests Test 07/16/18 06:30 White Blood Count 8.1 x10^3/uL (4.0-11.0) Red Blood Count 3.63 x10^6/uL (3.50-5.40) Hemoglobin 9.6 g/dL (12.0-15.5) Hematocrit 28.7 % (36.0-47.0) Mean Corpuscular Volume 79 fL (79-100) Mean Corpuscular Hemoglobin 26 pg (25-35) Mean Corpuscular Hemoglobin Concent 33 g/dL (31-37) Red Cell Distribution Width 17.9 % (11.5-14.5) Platelet Count 262 x10^3/uL (140-400) Neutrophils (%) (Auto) 75 % (31-73) Lymphocytes (%) (Auto) 18 % (24-48) Monocytes (%) (Auto) 7 % (0-9) Eosinophils (%) (Auto) 0 % (0-3) Basophils (%) (Auto) 0 % (0-3) Neutrophils # (Auto) 6.0 x10^3uL (1.8-7.7) Lymphocytes # (Auto) 1.4 x10^3/uL (1.0-4.8) Monocytes # (Auto) 0.5 x10^3/uL (0.0-1.1) Eosinophils # (Auto) 0.0 x10^3/uL (0.0-0.7) Basophils # (Auto) 0.0 x10^3/uL (0.0-0.2) Sodium Level 142 mmol/L (136-145) Potassium Level 3.6 mmol/L (3.5-5.1) Chloride Level 109 mmol/L (98-107) Carbon Dioxide Level 21 mmol/L (21-32) Anion Gap 12 (6-14) Blood Urea Nitrogen 10 mg/dL (7-20) Creatinine 1.2 mg/dL (0.6-1.0) Estimated GFR (Cockcroft-Gault) 58.8 Glucose Level 87 mg/dL (70-99) Calcium Level 8.7 mg/dL (8.5-10.1) Magnesium Level 1.9 mg/dL (1.8-2.4) Microbiology 07/12/18 Urine Culture - Final, Complete 07/12/18 Urine Culture Result 1 (SHEBA) - Final, Complete Medications Current Medications Sodium Chloride 1,000 ml @ 1,000 mls/hr 1X ONCE IV Last administered on at 09:37; Start 07/12/18 at 09:15; Stop 07/12/18 at 10:14; Status DC Ondansetron HCl (Zofran) 4 mg 1X ONCE IV Last administered on 07/12/18at 09:43 ; Start 07/12/18 at 09:15; Stop 07/12/18 at 09:16; Status DC Dicyclomine HCl (Bentyl) 20 mg 1X ONCE IM Last administered on 07/12/18at 10:44 ; Start 07/12/18 at 09:15; Stop 07/12/18 at 09:16; Status DC Iohexol (Omnipaque 300 Mg/ml) 75 ml 1X ONCE IV Last administered on 07/12/18at 10:30; Start 07/12/18 at 10:30; Stop 07/12/18 at 10:32; Status DC Info (CONTRAST GIVEN -- Rx MONITORING) 1 each PRN DAILY PRN MC SEE COMMENTS; Start 07/12/18 at 10:45; Stop 07/14/18 at 10:44; Status DC Metronidazole 100 ml @ 100 mls/hr 1X ONCE IV Last administered on 07/12/18at 13:10; Start 07/12/18 at 12:30; Stop 07/12/18 at 13:29; Status DC Ciprofloxacin/ Dextrose 200 ml @ 200 mls/hr Q12HR IV Last administered on 07/12at 23:00; Start 07/12/18 at 13:30; Stop 07/13/18 at 08:57; Status DC Morphine Sulfate (Morphine Sulfate) 2 mg PRN Q2HR PRN IV SEVERE PAIN Last administered on 07/13/18at 16:10; Start 07/12/18 at 16:00 Atorvastatin Calcium (Lipitor) 20 mg HS PO Last administered on 07/14/18at 20:54 ; Start 07/12/18 at 21:00 Cetirizine HCl (ZyrTEC) 10 mg DAILY PO Last administered on 07/14/18at 11:43; Start 07/12/18 at 16:00 Lubiprostone (Amitiza) 8 mcg BID PO Last administered on 07/13/18at 08:23; Start 07/12/18 at 21:00; Stop 07/13/18 at 08:49; Status DC Lisinopril (Prinivil) 10 mg DAILY PO Last administered on 07/14/18at 11:43; Start 07/13/18 at 09:00 Oxcarbazepine (Trileptal) 300 mg BID PO Last administered on 07/13/18at 08:23; Start 07/12/18 at 21:00; Stop 07/13/18 at 11:19; Status DC Polyethylene Glycol (miraLAX PACKET) 17 gm BID PO Last administered on at 11:45; Start 07/12/18 at 21:00 Topiramate (Topamax) 100 mg BID PO Last administered on 07/16/18at 11:25; Start 07/12/18 at 21:00 Hydrochlorothiazide (Microzide) 12.5 mg DAILY PO Last administered on at 11:44; Start 07/13/18 at 09:00; Stop 07/16/18 at 11:39; Status DC Ketorolac Tromethamine (Toradol 30mg Vial) 30 mg PRN Q6HRS PRN IV MILD - MODERATE PAIN; Start 07/12/18 at 20:00; Stop 07/17/18 at 19:59 Lactobacillus Rhamnosus (Culturelle) 1 cap BID PO Last administered on at 20:54; Start 07/13/18 at 09:00 Ciprofloxacin/ Dextrose 200 ml @ 200 mls/hr Q12H IV Last administered on at 10:49; Start 07/13/18 at 11:00; Stop 07/16/18 at 11:39; Status DC Metronidazole 100 ml @ 100 mls/hr Q8HRS IV Last administered on 07/16/18at 06: 09; Start 07/13/18 at 09:00; Stop 07/16/18 at 11:39; Status DC Potassium Chloride (Klor-Con) 40 meq 1X ONCE PO Last administered on at 09:26; Start 07/13/18 at 08:45; Stop 07/13/18 at 08:52; Status DC Potassium Chloride (Klor-Con) 40 meq DAILYWBKFT PO Last administered on at 11:45; Start 07/14/18 at 08:00 Loperamide HCl (Imodium) 2 mg PRN Q15MIN PRN PO DIARRHEA; Start 07/13/18 at 08: 45 Ondansetron HCl (Zofran) 4 mg PRN Q6HRS PRN IV NAUSEA/VOMITING Last administered on 07/16/18at 11:41; Start 07/13/18 at 08:45 Ondansetron HCl (Zofran Odt) 4 mg PRN Q6HRS PRN PO NAUSEA/VOMITING; Start 07/13 at 08:45 Acetaminophen (Tylenol) 500 mg PRN Q6HRS PRN PO MILD PAIN / TEMP; Start at 08:45 Acetaminophen/ Hydrocodone Bitart (Lortab 5/325) 1 tab PRN Q4HRS PRN PO PAIN MODERATE TO SEVERE; Start 07/13/18 at 08:45 Sodium Chloride 1,000 ml @ 100 mls/hr 1X ONCE IV Last administered on at 09:33; Start 07/13/18 at 09:00; Stop 07/13/18 at 18:59; Status DC Oxcarbazepine (Trileptal) 900 mg BID PO Last administered on 07/16/18at 11:25; Start 07/13/18 at 21:00 Bisacodyl (Dulcolax Tab) 10 mg 1X ONCE PO Last administered on 07/13/18at 17:07 ; Start 07/13/18 at 17:00; Stop 07/13/18 at 17:01; Status DC Polyethylene Glycol (miraLAX Powder BULK BOTTLE) 238 gm 1X ONCE PO Last administered on 07/13/18at 19:35; Start 07/13/18 at 19:00; Stop 07/13/18 at 19:01 ; Status DC Sodium Chloride (Normal Saline Flush) 3 ml QSHIFT PRN IV AFTER MEDS AND BLOOD DRAWS; Start 07/13/18 at 16:45 Sodium Chloride (Normal Saline Flush) 3 ml QSHIFT PRN IV AFTER MEDS AND BLOOD DRAWS; Start 07/13/18 at 16:45; Status UNV Benzocaine (Hurricaine One) 1 spray STK-MED ONCE .ROUTE ; Start 07/14/18 at 07: 58; Stop 07/14/18 at 07:59; Status DC Midazolam HCl (Versed) 5 mg STK-MED ONCE .ROUTE ; Start 07/14/18 at 07:59; Stop 07/14/18 at 08:00; Status DC Fentanyl Citrate (Fentanyl 2ml Vial) 100 mcg STK-MED ONCE .ROUTE ; Start at 07:59; Stop 07/14/18 at 08:00; Status DC Propofol 40 ml @ As Directed STK-MED ONCE IV ; Start 07/14/18 at 08:34; Stop at 08:35; Status DC Lidocaine HCl (Lidocaine Pf 2% Vial) 5 ml STK-MED ONCE .ROUTE ; Start 07/14/18 at 08:34; Stop 07/14/18 at 08:35; Status DC Cefazolin Sodium/ Dextrose 50 ml @ 100 mls/hr 1X PREOP PRN IV educational specialist to OR Last administered on 07/15/18at 09:40; Start 07/15/18 at 06:00; Stop 07/15/18 at 18:00; Status DC Metronidazole 100 ml @ 100 mls/hr 1X PREOP PRN IV educational specialist to OR; Start at 06:00; Stop 07/15/18 at 18:00; Status DC Fentanyl Citrate (Fentanyl 2ml Vial) 25 mcg PRN Q5MIN PRN IV MILD PAIN; Start 07/15/18 at 07:00; Stop 07/15/18 at 21:00; Status DC Fentanyl Citrate (Fentanyl 2ml Vial) 50 mcg PRN Q5MIN PRN IV MODERATE TO SEVERE PAIN Last administered on 07/15/18at 13:55; Start 07/15/18 at 07:00; Stop 07/15/18 at 21:00; Status DC Morphine Sulfate (Morphine Sulfate) 1 mg PRN Q10MIN PRN IV SEVERE PAIN; Start 07/15/18 at 07:00; Stop 07/15/18 at 21:00; Status DC Ringer's Solution 1,000 ml @ 30 mls/hr Q24H IV ; Start 07/15/18 at 07:00; Stop 07/15/18 at 18:59; Status DC Lidocaine HCl (Xylocaine-Mpf 1% 2ml Vial) 2 ml PRN 1X PRN ID IV START; Start at 07:00; Stop 07/15/18 at 21:00; Status DC Hydromorphone HCl (Dilaudid) 0.5 mg PRN Q10MIN PRN IV SEV PAIN, Second choice; Start 07/15/18 at 07:00; Stop 07/15/18 at 21:00; Status DC Prochlorperazine Edisylate (Compazine) 5 mg PACU PRN PRN IV NAUSEA, MRX1; Start 07/15/18 at 07:00; Stop 07/15/18 at 21:00; Status DC Epinephrine HCl (Adrenalin) 30 mg STK-MED ONCE .ROUTE ; Start 07/15/18 at 08:02 ; Stop 07/15/18 at 09:03; Status DC Bupivacaine HCl (Sensorcaine Mpf 0.25%) 30 ml STK-MED ONCE .ROUTE ; Start at 08:02; Stop 07/15/18 at 09:03; Status DC Sevoflurane (Ultane) 90 ml STK-MED ONCE IH ; Start 07/15/18 at 09:12; Stop 07/15 at 09:13; Status DC Midazolam HCl (Versed) 2 mg STK-MED ONCE .ROUTE ; Start 07/15/18 at 09:12; Stop 07/15/18 at 09:13; Status DC Fentanyl Citrate (Fentanyl 2ml Vial) 100 mcg STK-MED ONCE .ROUTE ; Start at 09:12; Stop 07/15/18 at 09:13; Status DC Glycopyrrolate (Robinul) 1 mg STK-MED ONCE .ROUTE ; Start 07/15/18 at 09:13; Stop 07/15/18 at 09:14; Status DC Neostigmine Methylsulfate (Neostigmine Methylsulfate) 5 mg STK-MED ONCE .ROUTE ; Start 07/15/18 at 09:13; Stop 07/15/18 at 09:14; Status DC Rocuronium Shannon (Zemuron) 50 mg STK-MED ONCE .ROUTE ; Start 07/15/18 at 09:13 ; Stop 07/15/18 at 09:14; Status DC Dexamethasone Sodium Phosphate (Decadron) 20 mg STK-MED ONCE .ROUTE ; Start at 09:13; Stop 07/15/18 at 09:14; Status DC Ketorolac Tromethamine (Toradol For Or Only) 30 mg STK-MED ONCE INJ ; Start at 09:13; Stop 07/15/18 at 09:14; Status DC Propofol 20 ml @ As Directed STK-MED ONCE IV ; Start 07/15/18 at 09:13; Stop at 09:14; Status DC Ondansetron HCl (Zofran) 4 mg STK-MED ONCE .ROUTE ; Start 07/15/18 at 09:13; Stop 07/15/18 at 09:14; Status DC Phenylephrine HCl (PHENYLEPHRINE in 0.9% NACL PF) 1 mg STK-MED ONCE IV ; Start 07/15/18 at 09:53; Stop 07/15/18 at 09:54; Status DC Fentanyl Citrate (Fentanyl 2ml Vial) 100 mcg STK-MED ONCE .ROUTE ; Start at 10:05; Stop 07/15/18 at 10:06; Status DC Esmolol HCl (Brevibloc) 100 mg STK-MED ONCE IV ; Start 07/15/18 at 10:09; Stop 07/15/18 at 10:10; Status DC Rocuronium Shannon (Zemuron) 50 mg STK-MED ONCE .ROUTE ; Start 07/15/18 at 10:10 ; Stop 07/15/18 at 10:11; Status DC Ephedrine Sulfate (ePHEDrine PF IN SALINE SYRINGE) 50 mg STK-MED ONCE IV ; Start 07/15/18 at 11:02; Stop 07/15/18 at 11:03; Status DC Fentanyl Citrate (Fentanyl 2ml Vial) 100 mcg STK-MED ONCE .ROUTE ; Start at 11:09; Stop 07/15/18 at 11:10; Status DC Fentanyl Citrate (Fentanyl 2ml Vial) 100 mcg STK-MED ONCE .ROUTE ; Start at 12:51; Stop 07/15/18 at 12:52; Status DC Morphine Sulfate 30 ml @ 0 mls/hr CONT PRN PRN IV PER PROTOCOL Last administered on 07/16/18at 04:27; Start 07/15/18 at 13:30 Fentanyl Citrate (Fentanyl 2ml Vial) 100 mcg STK-MED ONCE .ROUTE ; Start at 13:34; Stop 07/15/18 at 13:35; Status DC Throat Lozenges (Chloraseptic) 1 spray PRN Q3HRS PRN PO SORE THROAT Last administered on 07/15/18at 21:55; Start 07/15/18 at 21:45 Sodium Chloride 1,000 ml @ 1,000 mls/hr 1X ONCE IV Last administered on at 03:45; Start 07/16/18 at 03:45; Stop 07/16/18 at 04:44; Status DC Sodium Chloride 1,000 ml @ 125 mls/hr 1X ONCE IV ; Start 07/16/18 at 04:45; Stop 07/16/18 at 12:44; Status Cancel Sodium Chloride 1,000 ml @ 125 mls/hr Q8H IV Last administered on 07/16/18at 06 :10; Start 07/16/18 at 05:00 Enoxaparin Sodium (Lovenox 40mg Syringe) 40 mg Q24H SQ Last administered on at 10:50; Start 07/16/18 at 10:00 Albuterol/ Ipratropium (Duoneb) 3 ml RTQID NEB Last administered on 07/16/18at 14:04; Start 07/16/18 at 12:00 Albuterol Sulfate (Ventolin Neb Soln) 2.5 mg PRN Q4HRS PRN NEB SHORTNESS OF BREATH; Start 07/16/18 at 11:45 Active Scripts Active Reported Amitiza (Lubiprostone) 8 Mcg Capsule 1 Cap PO BID Miralax (Polyethylene Glycol 3350) 17 Gm Powd.pack 1 Packet PO BID Zyrtec (Cetirizine Hcl) 10 Mg Tablet 1 Tab PO DAILY Atorvastatin Calcium 20 Mg Tablet 20 Mg PO HS Topiramate 100 Mg Tablet 1 Tab PO BID Oxcarbazepine 300 Mg Tablet 1 Tab PO BID Lisinopril-Hctz 10-12.5 Mg Tab (Lisinopril/Hydrochlorothiazide) 1 Each Tablet 1 Tab PO DAILY Vitals/I & O Vital Sign - Last 24 Hours 07/15/18 07/15/18 07/15/18 07/15/18 15:15 15:30 15:34 15:45 Temp 97.5 97.5 97.5 97.5 97.5 97.5 Pulse 90 88 85 Resp 20 20 20 B/P (MAP) 109/66 (80) 110/68 (82) 103/65 (78) Pulse Ox 98 98 99 O2 Delivery Room Air Room Air Room Air Room Air 907/15/18 07/15/18 07/15/18 16:15 16:45 19:20 19:40 Temp 97.5 97.5 98.0 97.5 97.5 98.0 Pulse 89 95 81 Resp 18 18 18 B/P (MAP) 107/70 (82) 108/67 (81) 99/61 (74) Pulse Ox 98 98 100 O2 Delivery Room Air Room Air Room Air 07/15/18 07/16/18 07/16/18 07/16/18 23:13 03:17 04:27 05:10 Temp 98.0 98.0 98.0 98.0 Pulse 87 78 Resp 18 14 16 16 B/P (MAP) 102/64 (77) 84/49 (61) Pulse Ox 98 95 O2 Delivery Room Air Room Air Room Air Room Air 07/16/18 07/16/18 07/16/18 07/16/18 07:00 07:30 11:00 14:05 Temp 97.9 98.2 97.9 98.2 Pulse 78 89 Resp 16 16 B/P (MAP) 99/64 (76) 115/65 (82) Pulse Ox 97 98 98 O2 Delivery Room Air Room Air Room Air Room Air Intake and Output 07/15/18 07/15/18 07/16/18 15:00 23:00 07:00 Intake Total 15 ml 2629 ml Output Total 350 ml 50 ml 250 ml Balance -335 ml -50 ml 2379 ml KAREN JORDAN MD Jul 16, 2018 15:17
[2018-07-16] MEDS ORDERED: PROAIR HFA8.5 GM INH (16:27)
[2018-07-16] MEDS ORDERED: FLUT1DIS3 IH (16:27)
--- NOTE | 2018-07-16 17:08 | PATHOLOGY ---
[facility] Accession Number: [id number] . 01 Material submitted: . PART A: CECAL MASS BIOPSY - FS PART B: ANTRUM BIOPSY PART C: CECAL MASS BIOPSY . 01 Clinical history: . Abdominal pain, abnormal CT Gastritis rule out pancreatic rest . 02 Diagnosis: A. Colon biopsies, cecal mass: - Mucosal hyperplastic changes with focal ulceration, granulation tissue, and acute and chronic inflammation with admixed eosinophils - no evidence of malignancy. . B. Gastric biopsy, antrum: - Active chronic gastritis, moderate to marked, with Helicobacter organisms identified. . C. Colon biopsies, cecal mass: - UNDIFFERENTIATED COLONIC ADENOCARCINOMA, ULCERATED. [facility]/07/16/2018 . 02 Comment: Sections of the cecal mass biopsy (A) reveal segments of colonic mucosa showing focal glandular hyperplastic changes and ulceration with granulation tissue and acute and chronic inflammation with increased eosinophils. There is no evidence of malignancy. Sections of the gastric antral biopsy show moderate to marked active chronic inflammation. A properly controlled immunoperoxidase stain for Helicobacter reveals Helicobacter organisms. Sections of the cecal mass biopsies (C) reveal a malignant epithelial neoplasm. The malignant cells are present in solid nests within an inflamed reactive stroma and show little or no gland formation. The malignant cells possess enlarged, rounded to ovoid nuclei containing prominent nucleoli. There is evidence of ulceration. There are also several segments of colonic mucosa showing edema, mild acute and chronic inflammation and reactive glandular epithelial changes. A limited panel of immunoperoxidase stains is obtained and yields the following results: . AE1/AE3 (C1): Tumor cells positive and colonic epithelium positive. Cykeratin 7 (C1): Tumor cells negative and colonic epithelium negative. Cytokeratin 20 (C1): Tumor cells negative; colonic epithelium positive. CDX2 (C1): Tumor cells negative; colonic epithelium positive. P40 (C1): Tumor cells negative and colonic epithelium negative. . . The morphologic and immunophenotypic findings are supportive of the diagnosis of undifferentiated colonic adenocarcinoma. The case is also examined by Dr. Yusuf Valverde, who concurs with the diagnosis. (JPM/db/tom; 07/16/18) . . Special stains performed: Immunoperoxidase stain for Helicobacter on B1. Immunoperoxidase stains for AE1/AE3, cytokeratin 7, cytokeratin 20, CDX2, and p40 performed on C1. . 02 Electronically signed: . Jon Patel MD, Pathologist NPI- [id number] . 01 Gross description: . A. Received fresh for frozen section is a specimen labeled with the patient's name and "cecal mass biopsy". The specimen consists of three fragments of red-pink soft tissue measuring 0.2 to 0.3 cm in greatest diameter. The frozen section specimen is submitted in FSA1 with the remaining tissue submitted in block A1. (MAP/db; 07/16/18) . B. The specimen is received in formalin, labeled "Narendra, Viridiana, antrum BX" and consists of a fragment of soft hammer tissue measuring 0.3 x 0.2 x 0.2 cm which is entirely submitted in B1. . C. The specimen is received in formalin, labeled "Narendra, Viridiana, cecal mass BX" and consists of multiple fragments of soft hammer tissue measuring 1.2 x 0.4 x 0.2 cm in aggregate which are entirely submitted in C1. (SDY; 07/14/2018) . FROZEN SECTION DIAGNOSIS: (Burke Hurtado M.D.) . FSA1. Cecal mass biopsy: - Definite malignancy not identified. . Discussed with Dr. Hardwick at 0920 on 07/14/18. . Frozen section performed at [facility], [address] [place] [id number]. SYU/SYU . 02 Pathologist provided ICD-10: C18.0, K63.3, K52.9, K29.50, B96.81 . 02 CPT . 433385, [id number], [id number], [id number], [id number], [id number] Specimen Comment: A courtesy copy of this report has been sent to Specimen Comment: [phone], , , . Specimen Comment: Report sent to ,DR TALBERT,DR MANNING / DR BLOOM Performed at: [address], [place] [id number] MD Rishabh Villagran MD Phone: [phone] Performed at: 02 [facility] [address] [place], [place] [id number] MD Jon Patel MD Phone: [phone]
--- NOTE | 2018-07-16 18:34 | PDOC2 ---
CONSULT Date of Consult Date of Consult DATE: 07/16/18 TIME: 18:25 Reason for consultation: Colon cancer Consult: Hematology oncology, Dr. Pablo Yoon History of present illness: She is a 47-year-old female with history of colon mass, the colon mass was just acutely noted, 3 cm in size, partially obstructing on colonoscopy, associated with some mild mesenteric lymphadenopathy on CT scan, improved post surgery, it was resected yesterday though we're waiting for pathology report, she has some mild postoperative anemia though hemoglobin was normal on admit, creatinine 1.2, and a family history of colon cancer in her father in his 70s. She is a single mother to a 5- year-old and does still smoke. She had an abnormal Pap smear and was due to follow-up with gynecology next week. Past medical history: Asthma with prior ectopic Low-grade squamous intraepithelial lesion, CIN1 Obesity Headaches Hypertension Hyponatremia GERD History of seizure since 2008, followed by neurology on antiepileptics Cholelithiasis Nephrolithiasis Fibroid uterus Renal cyst Past surgical history: Cervical biopsy Laparoscopic to open colectomy Bilateral tubal ligation Ectopic EGD Colonoscopy section Allergies: Tylenol with codeine Medications: See attached list Social history: Currently smoking, no alcohol, has a 5-year-old son she lives with, single mother Family history: Father with colon cancer in his 70s Review of systems: Numbness and tingling in her fingers occasionally, abdominal pain postoperatively, some shortness of breath occasionally, otherwise 10 point review of systems is negative, has a Morales catheter in place Physical exam: Vitals reviewed, no fevers Gen.: Obese -[place] female in no acute distress HEENT: mucous membranes moist, head normocephalic atraumatic Neck: Supple, no lymphadenopathy Lymph nodes: No palpable lymphadenopathy neck or axilla Lungs: Breathing comfortably on nasal cannula O2, no evidence of respiratory distress Heart: Regular rate and rhythm Abdomen: Soft, sightly tender, has abdominal binder on postoperatively Extremities: No cyanosis or significant edema Skin: No obvious rashes or skin breakdown, abdominal wound not visualized Neuro: Alert and oriented 3 Psych: Normal mood and affect Lab reviewed: Hemoglobin 9.6 with normal platelet count and white count, MCV of 79, hepatic either low or normal, creatinine of 1.2 Rads reviewed: CT abdomen and pelvis showed probable renal cyst, fibroid uterus , left renal calculi, cholelithiasis, mural thickening of the colon and ileocecal region, malignancy versus inflammation with dilatation of the distal small bowel, and mild mesenteric lymphadenopathy and small amount of free fluid Case discussed with: Patient, her sister, records reviewed in [facility] and [facility] , including labs and radiology, please see note for summary details Assessment and Plan: She is a 47-year-old female with colon cancer, just resected, pathology pending Colon cancer: We'll check CT chest for staging as well as CEA, awaiting pathology report Anemia: She had a ferritin of 14 in October 2017, will check ferritin and iron panel Tobacco abuse: Highly recommend smoking cessation Cervical intraepithelial neoplasia: She has gynecology follow-up pending DVT prophylaxis: On Lovenox Thank you kindly for this consultation, and please do not hesitate to call with further questions. I let her know I will return on Saturday morning but can be reached via phone if there are any questions in the interim. Past Medical History Cardiovascular: HTN, Hyperlipidemia Pulmonary: Asthma CENTRAL NERVOUS SYSTEM: Seizure Past Surgical History Past Surgical History: Family History Family History: Diabetes Social History <1 pack per day ALCOHOL: none Drugs: None Lives: with Family Current Problem List Problem List Problems Medical Problems: (1) Abdominal pain Status: Acute (2) Bandemia Status: Acute (3) Leukocytosis Status: Acute (4) Nausea vomiting and diarrhea Status: Acute (5) UTI (urinary tract infection) Status: Acute Current Medications Current Medications Current Medications Sodium Chloride 1,000 ml @ 1,000 mls/hr 1X ONCE IV Last administered on at 09:37; Start 07/12/18 at 09:15; Stop 07/12/18 at 10:14; Status DC Ondansetron HCl (Zofran) 4 mg 1X ONCE IV Last administered on 07/12/18at 09:43 ; Start 07/12/18 at 09:15; Stop 07/12/18 at 09:16; Status DC Dicyclomine HCl (Bentyl) 20 mg 1X ONCE IM Last administered on 07/12/18at 10:44 ; Start 07/12/18 at 09:15; Stop 07/12/18 at 09:16; Status DC Iohexol (Omnipaque 300 Mg/ml) 75 ml 1X ONCE IV Last administered on 07/12/18at 10:30; Start 07/12/18 at 10:30; Stop 07/12/18 at 10:32; Status DC Info (CONTRAST GIVEN -- Rx MONITORING) 1 each PRN DAILY PRN MC SEE COMMENTS; Start 07/12/18 at 10:45; Stop 07/14/18 at 10:44; Status DC Metronidazole 100 ml @ 100 mls/hr 1X ONCE IV Last administered on 07/12/18at 13:10; Start 07/12/18 at 12:30; Stop 07/12/18 at 13:29; Status DC Ciprofloxacin/ Dextrose 200 ml @ 200 mls/hr Q12HR IV Last administered on 07/12at 23:00; Start 07/12/18 at 13:30; Stop 07/13/18 at 08:57; Status DC Morphine Sulfate (Morphine Sulfate) 2 mg PRN Q2HR PRN IV SEVERE PAIN Last administered on 07/13/18at 16:10; Start 07/12/18 at 16:00 Atorvastatin Calcium (Lipitor) 20 mg HS PO Last administered on 07/14/18at 20:54 ; Start 07/12/18 at 21:00 Cetirizine HCl (ZyrTEC) 10 mg DAILY PO Last administered on 07/14/18at 11:43; Start 07/12/18 at 16:00 Lubiprostone (Amitiza) 8 mcg BID PO Last administered on 07/13/18at 08:23; Start 07/12/18 at 21:00; Stop 07/13/18 at 08:49; Status DC Lisinopril (Prinivil) 10 mg DAILY PO Last administered on 07/14/18at 11:43; Start 07/13/18 at 09:00 Oxcarbazepine (Trileptal) 300 mg BID PO Last administered on 07/13/18at 08:23; Start 07/12/18 at 21:00; Stop 07/13/18 at 11:19; Status DC Polyethylene Glycol (miraLAX PACKET) 17 gm BID PO Last administered on at 11:45; Start 07/12/18 at 21:00 Topiramate (Topamax) 100 mg BID PO Last administered on 07/16/18at 11:25; Start 07/12/18 at 21:00 Hydrochlorothiazide (Microzide) 12.5 mg DAILY PO Last administered on at 11:44; Start 07/13/18 at 09:00; Stop 07/16/18 at 11:39; Status DC Ketorolac Tromethamine (Toradol 30mg Vial) 30 mg PRN Q6HRS PRN IV MILD - MODERATE PAIN; Start 07/12/18 at 20:00; Stop 07/17/18 at 19:59 Lactobacillus Rhamnosus (Culturelle) 1 cap BID PO Last administered on at 20:54; Start 07/13/18 at 09:00 Ciprofloxacin/ Dextrose 200 ml @ 200 mls/hr Q12H IV Last administered on at 10:49; Start 07/13/18 at 11:00; Stop 07/16/18 at 11:39; Status DC Metronidazole 100 ml @ 100 mls/hr Q8HRS IV Last administered on 07/16/18at 06: 09; Start 07/13/18 at 09:00; Stop 07/16/18 at 11:39; Status DC Potassium Chloride (Klor-Con) 40 meq 1X ONCE PO Last administered on at 09:26; Start 07/13/18 at 08:45; Stop 07/13/18 at 08:52; Status DC Potassium Chloride (Klor-Con) 40 meq DAILYWBKFT PO Last administered on at 11:45; Start 07/14/18 at 08:00 Loperamide HCl (Imodium) 2 mg PRN Q15MIN PRN PO DIARRHEA; Start 07/13/18 at 08: 45 Ondansetron HCl (Zofran) 4 mg PRN Q6HRS PRN IV NAUSEA/VOMITING Last administered on 07/16/18at 11:41; Start 07/13/18 at 08:45 Ondansetron HCl (Zofran Odt) 4 mg PRN Q6HRS PRN PO NAUSEA/VOMITING; Start 07/13 at 08:45 Acetaminophen (Tylenol) 500 mg PRN Q6HRS PRN PO MILD PAIN / TEMP; Start at 08:45 Acetaminophen/ Hydrocodone Bitart (Lortab 5/325) 1 tab PRN Q4HRS PRN PO PAIN MODERATE TO SEVERE; Start 07/13/18 at 08:45 Sodium Chloride 1,000 ml @ 100 mls/hr 1X ONCE IV Last administered on at 09:33; Start 07/13/18 at 09:00; Stop 07/13/18 at 18:59; Status DC Oxcarbazepine (Trileptal) 900 mg BID PO Last administered on 07/16/18at 11:25; Start 07/13/18 at 21:00 Bisacodyl (Dulcolax Tab) 10 mg 1X ONCE PO Last administered on 07/13/18at 17:07 ; Start 07/13/18 at 17:00; Stop 07/13/18 at 17:01; Status DC Polyethylene Glycol (miraLAX Powder BULK BOTTLE) 238 gm 1X ONCE PO Last administered on 07/13/18at 19:35; Start 07/13/18 at 19:00; Stop 07/13/18 at 19:01 ; Status DC Sodium Chloride (Normal Saline Flush) 3 ml QSHIFT PRN IV AFTER MEDS AND BLOOD DRAWS; Start 07/13/18 at 16:45 Sodium Chloride (Normal Saline Flush) 3 ml QSHIFT PRN IV AFTER MEDS AND BLOOD DRAWS; Start 07/13/18 at 16:45; Status UNV Benzocaine (Hurricaine One) 1 spray STK-MED ONCE .ROUTE ; Start 07/14/18 at 07: 58; Stop 07/14/18 at 07:59; Status DC Midazolam HCl (Versed) 5 mg STK-MED ONCE .ROUTE ; Start 07/14/18 at 07:59; Stop 07/14/18 at 08:00; Status DC Fentanyl Citrate (Fentanyl 2ml Vial) 100 mcg STK-MED ONCE .ROUTE ; Start at 07:59; Stop 07/14/18 at 08:00; Status DC Propofol 40 ml @ As Directed STK-MED ONCE IV ; Start 07/14/18 at 08:34; Stop at 08:35; Status DC Lidocaine HCl (Lidocaine Pf 2% Vial) 5 ml STK-MED ONCE .ROUTE ; Start 07/14/18 at 08:34; Stop 07/14/18 at 08:35; Status DC Cefazolin Sodium/ Dextrose 50 ml @ 100 mls/hr 1X PREOP PRN IV clinical documentation nurse to OR Last administered on 07/15/18at 09:40; Start 07/15/18 at 06:00; Stop 07/15/18 at 18:00; Status DC Metronidazole 100 ml @ 100 mls/hr 1X PREOP PRN IV clinical documentation nurse to OR; Start at 06:00; Stop 07/15/18 at 18:00; Status DC Fentanyl Citrate (Fentanyl 2ml Vial) 25 mcg PRN Q5MIN PRN IV MILD PAIN; Start 07/15/18 at 07:00; Stop 07/15/18 at 21:00; Status DC Fentanyl Citrate (Fentanyl 2ml Vial) 50 mcg PRN Q5MIN PRN IV MODERATE TO SEVERE PAIN Last administered on 07/15/18at 13:55; Start 07/15/18 at 07:00; Stop 07/15/18 at 21:00; Status DC Morphine Sulfate (Morphine Sulfate) 1 mg PRN Q10MIN PRN IV SEVERE PAIN; Start 07/15/18 at 07:00; Stop 07/15/18 at 21:00; Status DC Ringer's Solution 1,000 ml @ 30 mls/hr Q24H IV ; Start 07/15/18 at 07:00; Stop 07/15/18 at 18:59; Status DC Lidocaine HCl (Xylocaine-Mpf 1% 2ml Vial) 2 ml PRN 1X PRN ID IV START; Start at 07:00; Stop 07/15/18 at 21:00; Status DC Hydromorphone HCl (Dilaudid) 0.5 mg PRN Q10MIN PRN IV SEV PAIN, Second choice; Start 07/15/18 at 07:00; Stop 07/15/18 at 21:00; Status DC Prochlorperazine Edisylate (Compazine) 5 mg PACU PRN PRN IV NAUSEA, MRX1; Start 07/15/18 at 07:00; Stop 07/15/18 at 21:00; Status DC Epinephrine HCl (Adrenalin) 30 mg STK-MED ONCE .ROUTE ; Start 07/15/18 at 08:02 ; Stop 07/15/18 at 09:03; Status DC Bupivacaine HCl (Sensorcaine Mpf 0.25%) 30 ml STK-MED ONCE .ROUTE ; Start at 08:02; Stop 07/15/18 at 09:03; Status DC Sevoflurane (Ultane) 90 ml STK-MED ONCE IH ; Start 07/15/18 at 09:12; Stop 07/15 at 09:13; Status DC Midazolam HCl (Versed) 2 mg STK-MED ONCE .ROUTE ; Start 07/15/18 at 09:12; Stop 07/15/18 at 09:13; Status DC Fentanyl Citrate (Fentanyl 2ml Vial) 100 mcg STK-MED ONCE .ROUTE ; Start at 09:12; Stop 07/15/18 at 09:13; Status DC Glycopyrrolate (Robinul) 1 mg STK-MED ONCE .ROUTE ; Start 07/15/18 at 09:13; Stop 07/15/18 at 09:14; Status DC Neostigmine Methylsulfate (Neostigmine Methylsulfate) 5 mg STK-MED ONCE .ROUTE ; Start 07/15/18 at 09:13; Stop 07/15/18 at 09:14; Status DC Rocuronium Zoe (Zemuron) 50 mg STK-MED ONCE .ROUTE ; Start 07/15/18 at 09:13 ; Stop 07/15/18 at 09:14; Status DC Dexamethasone Sodium Phosphate (Decadron) 20 mg STK-MED ONCE .ROUTE ; Start at 09:13; Stop 07/15/18 at 09:14; Status DC Ketorolac Tromethamine (Toradol For Or Only) 30 mg STK-MED ONCE INJ ; Start at 09:13; Stop 07/15/18 at 09:14; Status DC Propofol 20 ml @ As Directed STK-MED ONCE IV ; Start 07/15/18 at 09:13; Stop at 09:14; Status DC Ondansetron HCl (Zofran) 4 mg STK-MED ONCE .ROUTE ; Start 07/15/18 at 09:13; Stop 07/15/18 at 09:14; Status DC Phenylephrine HCl (PHENYLEPHRINE in 0.9% NACL PF) 1 mg STK-MED ONCE IV ; Start 07/15/18 at 09:53; Stop 07/15/18 at 09:54; Status DC Fentanyl Citrate (Fentanyl 2ml Vial) 100 mcg STK-MED ONCE .ROUTE ; Start at 10:05; Stop 07/15/18 at 10:06; Status DC Esmolol HCl (Brevibloc) 100 mg STK-MED ONCE IV ; Start 07/15/18 at 10:09; Stop 07/15/18 at 10:10; Status DC Rocuronium Zoe (Zemuron) 50 mg STK-MED ONCE .ROUTE ; Start 07/15/18 at 10:10 ; Stop 07/15/18 at 10:11; Status DC Ephedrine Sulfate (ePHEDrine PF IN SALINE SYRINGE) 50 mg STK-MED ONCE IV ; Start 07/15/18 at 11:02; Stop 07/15/18 at 11:03; Status DC Fentanyl Citrate (Fentanyl 2ml Vial) 100 mcg STK-MED ONCE .ROUTE ; Start at 11:09; Stop 07/15/18 at 11:10; Status DC Fentanyl Citrate (Fentanyl 2ml Vial) 100 mcg STK-MED ONCE .ROUTE ; Start at 12:51; Stop 07/15/18 at 12:52; Status DC Morphine Sulfate 30 ml @ 0 mls/hr CONT PRN PRN IV PER PROTOCOL Last administered on 07/16/18at 04:27; Start 07/15/18 at 13:30 Fentanyl Citrate (Fentanyl 2ml Vial) 100 mcg STK-MED ONCE .ROUTE ; Start at 13:34; Stop 07/15/18 at 13:35; Status DC Throat Lozenges (Chloraseptic) 1 spray PRN Q3HRS PRN PO SORE THROAT Last administered on 07/15/18at 21:55; Start 07/15/18 at 21:45 Sodium Chloride 1,000 ml @ 1,000 mls/hr 1X ONCE IV Last administered on at 03:45; Start 07/16/18 at 03:45; Stop 07/16/18 at 04:44; Status DC Sodium Chloride 1,000 ml @ 125 mls/hr 1X ONCE IV ; Start 07/16/18 at 04:45; Stop 07/16/18 at 12:44; Status Cancel Sodium Chloride 1,000 ml @ 125 mls/hr Q8H IV Last administered on 07/16/18at 15 :21; Start 07/16/18 at 05:00 Enoxaparin Sodium (Lovenox 40mg Syringe) 40 mg Q24H SQ Last administered on at 10:50; Start 07/16/18 at 10:00 Albuterol/ Ipratropium (Duoneb) 3 ml RTQID NEB Last administered on 07/16/18at 14:04; Start 07/16/18 at 12:00 Albuterol Sulfate (Ventolin Neb Soln) 2.5 mg PRN Q4HRS PRN NEB SHORTNESS OF BREATH; Start 07/16/18 at 11:45 Active Scripts Active Reported Advair 250-50 Diskus (Fluticasone/Salmeterol) 1 Each Disk.w.dev 1 Puff IH BID Proair Hfa Inhaler (Albuterol Sulfate) 8.5 Gm Hfa.aer.ad 1 Puff INH PRN Q6HRS PRN Amitiza (Lubiprostone) 8 Mcg Capsule 1 Cap PO BID Miralax (Polyethylene Glycol 3350) 17 Gm Powd.pack 1 Packet PO BID Zyrtec (Cetirizine Hcl) 10 Mg Tablet 1 Tab PO DAILY Atorvastatin Calcium 20 Mg Tablet 20 Mg PO HS Topiramate 100 Mg Tablet 1 Tab PO BID Oxcarbazepine 300 Mg Tablet 1 Tab PO BID Lisinopril-Hctz 10-12.5 Mg Tab (Lisinopril/Hydrochlorothiazide) 1 Each Tablet 1 Tab PO DAILY Allergies Allergies: Coded Allergies: No Known Drug Allergies (Unverified , 07/12/18) Vitals VITALS Vital Signs Date Time Temp Pulse Resp B/P (MAP) Pulse Ox O2 Delivery O2 Flow Rate FiO2 07/16/18 15:00 98.1 77 16 119/71 (87) 98 Nasal Cannula 2.0 98.1 Labs Labs Laboratory Tests Test 07/16/18 06:30 White Blood Count 8.1 x10^3/uL (4.0-11.0) Red Blood Count 3.63 x10^6/uL (3.50-5.40) Hemoglobin 9.6 g/dL (12.0-15.5) Hematocrit 28.7 % (36.0-47.0) Mean Corpuscular Volume 79 fL (79-100) Mean Corpuscular Hemoglobin 26 pg (25-35) Mean Corpuscular Hemoglobin Concent 33 g/dL (31-37) Red Cell Distribution Width 17.9 % (11.5-14.5) Platelet Count 262 x10^3/uL (140-400) Neutrophils (%) (Auto) 75 % (31-73) Lymphocytes (%) (Auto) 18 % (24-48) Monocytes (%) (Auto) 7 % (0-9) Eosinophils (%) (Auto) 0 % (0-3) Basophils (%) (Auto) 0 % (0-3) Neutrophils # (Auto) 6.0 x10^3uL (1.8-7.7) Lymphocytes # (Auto) 1.4 x10^3/uL (1.0-4.8) Monocytes # (Auto) 0.5 x10^3/uL (0.0-1.1) Eosinophils # (Auto) 0.0 x10^3/uL (0.0-0.7) Basophils # (Auto) 0.0 x10^3/uL (0.0-0.2) Sodium Level 142 mmol/L (136-145) Potassium Level 3.6 mmol/L (3.5-5.1) Chloride Level 109 mmol/L (98-107) Carbon Dioxide Level 21 mmol/L (21-32) Anion Gap 12 (6-14) Blood Urea Nitrogen 10 mg/dL (7-20) Creatinine 1.2 mg/dL (0.6-1.0) Estimated GFR (Cockcroft-Gault) 58.8 Glucose Level 87 mg/dL (70-99) Calcium Level 8.7 mg/dL (8.5-10.1) Magnesium Level 1.9 mg/dL (1.8-2.4) Laboratory Tests Test 07/16/18 06:30 White Blood Count 8.1 x10^3/uL (4.0-11.0) Red Blood Count 3.63 x10^6/uL (3.50-5.40) Hemoglobin 9.6 g/dL (12.0-15.5) Hematocrit 28.7 % (36.0-47.0) Mean Corpuscular Volume 79 fL (79-100) Mean Corpuscular Hemoglobin 26 pg (25-35) Mean Corpuscular Hemoglobin Concent 33 g/dL (31-37) Red Cell Distribution Width 17.9 % (11.5-14.5) Platelet Count 262 x10^3/uL (140-400) Neutrophils (%) (Auto) 75 % (31-73) Lymphocytes (%) (Auto) 18 % (24-48) Monocytes (%) (Auto) 7 % (0-9) Eosinophils (%) (Auto) 0 % (0-3) Basophils (%) (Auto) 0 % (0-3) Neutrophils # (Auto) 6.0 x10^3uL (1.8-7.7) Lymphocytes # (Auto) 1.4 x10^3/uL (1.0-4.8) Monocytes # (Auto) 0.5 x10^3/uL (0.0-1.1) Eosinophils # (Auto) 0.0 x10^3/uL (0.0-0.7) Basophils # (Auto) 0.0 x10^3/uL (0.0-0.2) Sodium Level 142 mmol/L (136-145) Potassium Level 3.6 mmol/L (3.5-5.1) Chloride Level 109 mmol/L (98-107) Carbon Dioxide Level 21 mmol/L (21-32) Anion Gap 12 (6-14) Blood Urea Nitrogen 10 mg/dL (7-20) Creatinine 1.2 mg/dL (0.6-1.0) Estimated GFR (Cockcroft-Gault) 58.8 Glucose Level 87 mg/dL (70-99) Calcium Level 8.7 mg/dL (8.5-10.1) Magnesium Level 1.9 mg/dL (1.8-2.4) PABLO YOON MD Jul 16, 2018 18:34
[2018-07-16 19:00] VITALS: BP 108/69
[2018-07-16] MEDS: ATORVASTATIN CALCIUM 20 MG TABLET PO SCH (20:26)
[2018-07-16] MEDS ORDERED: MAG HYDROX/ALUMINUM HYD/SIMETH 30 ML ORAL.SUSP PO PRN (22:00)
[2018-07-16] MEDS ORDERED: FAMOTIDINE 20 MG TABLET. PO ONE (22:00)
[2018-07-16] MEDS ORDERED: FAMOTIDINE 20 MG/2 ML VIAL IVP ONE (22:30)
[2018-07-16 23:00] VITALS: BP 115/71
[2018-07-17 03:00] VITALS: BP 101/65
[2018-07-17] MEDS: IV NORMAL SALINE 1000ML BAG 1,000 ML IV SCH ×2 (05:24→14:18)
[2018-07-17 07:00] VITALS: BP 123/81
[2018-07-17] MEDS: IPRATRPIUM/ALBUTEROL 0.5/2.5MG 3 ML NEBU. NEB SCH ×5 (07:17→19:56)
--- NOTE | 2018-07-17 08:47 | PDOC ---
ISAAC COLE INDUSTRIAL RELATIONS COUNSELOR 07/17/18 0847: SURGICAL PROGRESS NOTE Subjective confusion overnight believes she had a seizure can not remember having surgery or why--explained, seems to have some recollection after explanation reports flatus Vital Signs Vital Signs Date Time Temp Pulse Resp B/P (MAP) Pulse Ox O2 Delivery O2 Flow Rate FiO2 07/17/18 07:19 100 Room Air 07/17/18 03:00 99.3 95 16 101/65 (77) 2.0 99.3 I&O Intake and Output 07/17/18 07:00 Intake Total 2030 ml Output Total 975 ml Balance 1055 ml Intake Oral 0 ml IV Total 2030 ml Output Urine Total 975 ml General: Cooperative, No acute distress, Other (confusion) Abdomen: Soft, Other (ND, incision c/d/i, no erythema, driss in place) Labs Laboratory Tests Test 07/16/18 06:30 White Blood Count 8.1 x10^3/uL (4.0-11.0) Red Blood Count 3.63 x10^6/uL (3.50-5.40) Hemoglobin 9.6 g/dL (12.0-15.5) Hematocrit 28.7 % (36.0-47.0) Mean Corpuscular Volume 79 fL (79-100) Mean Corpuscular Hemoglobin 26 pg (25-35) Mean Corpuscular Hemoglobin Concent 33 g/dL (31-37) Red Cell Distribution Width 17.9 % (11.5-14.5) Platelet Count 262 x10^3/uL (140-400) Neutrophils (%) (Auto) 75 % (31-73) Lymphocytes (%) (Auto) 18 % (24-48) Monocytes (%) (Auto) 7 % (0-9) Eosinophils (%) (Auto) 0 % (0-3) Basophils (%) (Auto) 0 % (0-3) Neutrophils # (Auto) 6.0 x10^3uL (1.8-7.7) Lymphocytes # (Auto) 1.4 x10^3/uL (1.0-4.8) Monocytes # (Auto) 0.5 x10^3/uL (0.0-1.1) Eosinophils # (Auto) 0.0 x10^3/uL (0.0-0.7) Basophils # (Auto) 0.0 x10^3/uL (0.0-0.2) Sodium Level 142 mmol/L (136-145) Potassium Level 3.6 mmol/L (3.5-5.1) Chloride Level 109 mmol/L (98-107) Carbon Dioxide Level 21 mmol/L (21-32) Anion Gap 12 (6-14) Blood Urea Nitrogen 10 mg/dL (7-20) Creatinine 1.2 mg/dL (0.6-1.0) Estimated GFR (Cockcroft-Gault) 58.8 Glucose Level 87 mg/dL (70-99) Calcium Level 8.7 mg/dL (8.5-10.1) Magnesium Level 1.9 mg/dL (1.8-2.4) Iron Level 34 ug/dL (50-170) Total Iron Binding Capacity 203 ug/dL (250-450) Iron Saturation 17 % (15-34) Ferritin 32 ng/mL (8-252) Problem List Problems Medical Problems: (1) Abdominal pain Status: Acute (2) Bandemia Status: Acute (3) Leukocytosis Status: Acute (4) Nausea vomiting and diarrhea Status: Acute (5) UTI (urinary tract infection) Status: Acute Assessment/Plan s/p open right colon resection will ask neurology to see will hold on PO yet--not sure how accurate she is about flatus dc [place] increase activity caution with narcROSHAN Tim MD 07/18/18 0834: SURGICAL PROGRESS NOTE Assessment/Plan Agree with above ISAAC COLE APRN Jul 17, 2018 08:47 ROSHAN MANN MD Jul 18, 2018 08:34
[2018-07-17] MEDS: OXcarbazepine 300 MG TABLET PO SCH ×2 (10:08→21:16)
[2018-07-17] MEDS: CETIRIZINE HCL 10 MG TABLET. PO SCH (10:09)
[2018-07-17] MEDS: TOPIRAMATE 25 MG TABLET. PO SCH ×2 (10:09→21:16)
[2018-07-17] MEDS: POTASSIUM CHLORIDE 20 MEQ TABLET.ER. PO SCH (10:09)
[2018-07-17] MEDS: ACETAMINOPHEN 500 MG TABLET PO PRN (10:09)
[2018-07-17] MEDS: LACTOBACILLUS RHAMNOSUS GG 1 CAPSULE. PO SCH ×2 (10:09→21:16)
[2018-07-17] MEDS: POLYETHYLENE GLYCOL 3350 17 GM PACKET. PO SCH ×2 (10:09→21:00)
[2018-07-17] MEDS: LISINOPRIL 10 MG TABLET PO SCH (10:10)
[2018-07-17] MEDS: ENOXAPARIN 40 MG/0.4 ML SYRINGE. SQ SCH (10:16)
--- NOTE | 2018-07-17 10:20 | PDOC ---
Subjective: Subjective: Says she's confused and thinks she had "an episode." Chest feels tight, just had a bowel movement. Objective: Objective: Reviewed notes - neurology to see. Vital Signs: Vital Signs Date Time Temp Pulse Resp B/P (MAP) Pulse Ox O2 Delivery O2 Flow Rate FiO2 07/17/18 07:19 100 Room Air 07/17/18 07:00 98.8 106 16 123/81 (95) 2.0 98.8 Labs: Diagnosis: A. Colon biopsies, cecal mass: - Mucosal hyperplastic changes with focal ulceration, granulation tissue, and acute and chronic inflammation with admixed eosinophils - no evidence of malignancy. . B. Gastric biopsy, antrum: - Active chronic gastritis, moderate to marked, with Helicobacter organisms identified. . C. Colon biopsies, cecal mass: - UNDIFFERENTIATED COLONIC ADENOCARCINOMA, ULCERATED. PE: GEN: NAD LUNGS: CTAB HEART: tachycardic ABD: soft, quiet NEURO/PSYCH: A & O 3 A/P: Cecal mass s/p right colon resection - path with adenocarcinoma H. pylori gastritis Confusion -- Will add H. pylori treatment when taking PO. Continue per surgery and oncology. ARVIND HUERTA Jul 17, 2018 10:20
[2018-07-17] MEDS: IRON SUCROSE COMPLEX 200 MG in IV NORMAL SALINE 100ML 100 ML IV SCH (14:18)
[2018-07-17 15:00] VITALS: BP 120/78
--- NOTE | 2018-07-17 15:02 | PDOC ---
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 Nonobstructing left intrarenal calculi. Enlarged fibroid uterus. Probable renal cysts. asthma HTN morbid obesity h/o seizure AMS at hosp, with MEDICAL SUPPLY TECHNICIAN likely gastric bx + h pylori plan: fu wiht sx, npo,off MEDICAL SUPPLY TECHNICIAN , ice chips ivf dc hctz, monitor bp, lisinopril for now dvt ppx add duoneb, albuterol prn cont seizure meds, neuro consult for AMS dc abx onco consulted, garsia CT tmr for staging h pylori treatment defer to GI talked to pt about the path and h pylori, however, pt seems has problem to understand. hopefully she will remember. History of Present Illness History of Present Illness Out having surgery for colon mass which is a new diagnosis- dx after EGD colonoscopy this admission CAT scan: 1. Mural thickening involving the colon in the ileocecal valve region raising the possibility of colonic malignancy. An inflammatory process cannot be excluded. There is mild associated dilatation of the distal small bowel and mild mesenteric adenopathy at this level. 2. Small amount of free fluid in the pelvis. 3. Cholelithiasis. 4. Nonobstructing left intrarenal calculi. 5. Enlarged fibroid uterus. 6. Probable renal cysts. has 2 times BM 07/17 as per pt very confused last night, MEDICAL SUPPLY TECHNICIAN stopped. pain is ok Vitals Vitals Vital Signs Date Time Temp Pulse Resp B/P (MAP) Pulse Ox O2 Delivery O2 Flow Rate FiO2 07/17/18 11:11 95 Nasal Cannula 2.0 07/17/18 10:10 106 123/81 07/17/18 07:00 98.8 16 98.8 Physical Exam General: Cooperative, No acute distress, Other (confusion) Heart: Regular rate, Normal S1, Normal S2, No murmurs Lungs: Clear Abdomen: Soft, Other (ND, incision c/d/i, no erythema, driss in place, + BS. ) Extremities: No clubbing, No cyanosis Skin: No rashes, No breakdown Assessment and Plan Assessmemt and Plan Problems Medical Problems: (1) Abdominal pain Status: Acute (2) Bandemia Status: Acute (3) Leukocytosis Status: Acute (4) Nausea vomiting and diarrhea Status: Acute (5) UTI (urinary tract infection) Status: Acute Comment Review of Relevant I have reviewed the following items dawson (where applicable) has been applied. Labs Laboratory Tests Test 07/16/18 06:30 White Blood Count 8.1 x10^3/uL (4.0-11.0) Red Blood Count 3.63 x10^6/uL (3.50-5.40) Hemoglobin 9.6 g/dL (12.0-15.5) Hematocrit 28.7 % (36.0-47.0) Mean Corpuscular Volume 79 fL (79-100) Mean Corpuscular Hemoglobin 26 pg (25-35) Mean Corpuscular Hemoglobin Concent 33 g/dL (31-37) Red Cell Distribution Width 17.9 % (11.5-14.5) Platelet Count 262 x10^3/uL (140-400) Neutrophils (%) (Auto) 75 % (31-73) Lymphocytes (%) (Auto) 18 % (24-48) Monocytes (%) (Auto) 7 % (0-9) Eosinophils (%) (Auto) 0 % (0-3) Basophils (%) (Auto) 0 % (0-3) Neutrophils # (Auto) 6.0 x10^3uL (1.8-7.7) Lymphocytes # (Auto) 1.4 x10^3/uL (1.0-4.8) Monocytes # (Auto) 0.5 x10^3/uL (0.0-1.1) Eosinophils # (Auto) 0.0 x10^3/uL (0.0-0.7) Basophils # (Auto) 0.0 x10^3/uL (0.0-0.2) Sodium Level 142 mmol/L (136-145) Potassium Level 3.6 mmol/L (3.5-5.1) Chloride Level 109 mmol/L (98-107) Carbon Dioxide Level 21 mmol/L (21-32) Anion Gap 12 (6-14) Blood Urea Nitrogen 10 mg/dL (7-20) Creatinine 1.2 mg/dL (0.6-1.0) Estimated GFR (Cockcroft-Gault) 58.8 Glucose Level 87 mg/dL (70-99) Calcium Level 8.7 mg/dL (8.5-10.1) Magnesium Level 1.9 mg/dL (1.8-2.4) Iron Level 34 ug/dL (50-170) Total Iron Binding Capacity 203 ug/dL (250-450) Iron Saturation 17 % (15-34) Ferritin 32 ng/mL (8-252) Microbiology 07/12/18 Urine Culture - Final, Complete 07/12/18 Urine Culture Result 1 (SHEBA) - Final, Complete Medications Current Medications Sodium Chloride 1,000 ml @ 1,000 mls/hr 1X ONCE IV Last administered on at 09:37; Start 07/12/18 at 09:15; Stop 07/12/18 at 10:14; Status DC Ondansetron HCl (Zofran) 4 mg 1X ONCE IV Last administered on 07/12/18at 09:43 ; Start 07/12/18 at 09:15; Stop 07/12/18 at 09:16; Status DC Dicyclomine HCl (Bentyl) 20 mg 1X ONCE IM Last administered on 07/12/18at 10:44 ; Start 07/12/18 at 09:15; Stop 07/12/18 at 09:16; Status DC Iohexol (Omnipaque 300 Mg/ml) 75 ml 1X ONCE IV Last administered on 07/12/18at 10:30; Start 07/12/18 at 10:30; Stop 07/12/18 at 10:32; Status DC Info (CONTRAST GIVEN -- Rx MONITORING) 1 each PRN DAILY PRN MC SEE COMMENTS; Start 07/12/18 at 10:45; Stop 07/14/18 at 10:44; Status DC Metronidazole 100 ml @ 100 mls/hr 1X ONCE IV Last administered on 07/12/18at 13:10; Start 07/12/18 at 12:30; Stop 07/12/18 at 13:29; Status DC Ciprofloxacin/ Dextrose 200 ml @ 200 mls/hr Q12HR IV Last administered on 07/12at 23:00; Start 07/12/18 at 13:30; Stop 07/13/18 at 08:57; Status DC Morphine Sulfate (Morphine Sulfate) 2 mg PRN Q2HR PRN IV SEVERE PAIN Last administered on 07/13/18at 16:10; Start 07/12/18 at 16:00; Stop 07/17/18 at 09:36 ; Status DC Atorvastatin Calcium (Lipitor) 20 mg HS PO Last administered on 07/16/18at 20:26 ; Start 07/12/18 at 21:00 Cetirizine HCl (ZyrTEC) 10 mg DAILY PO Last administered on 07/17/18at 10:09; Start 07/12/18 at 16:00 Lubiprostone (Amitiza) 8 mcg BID PO Last administered on 07/13/18at 08:23; Start 07/12/18 at 21:00; Stop 07/13/18 at 08:49; Status DC Lisinopril (Prinivil) 10 mg DAILY PO Last administered on 07/17/18at 10:10; Start 07/13/18 at 09:00 Oxcarbazepine (Trileptal) 300 mg BID PO Last administered on 07/13/18at 08:23; Start 07/12/18 at 21:00; Stop 07/13/18 at 11:19; Status DC Polyethylene Glycol (miraLAX PACKET) 17 gm BID PO Last administered on at 10:09; Start 07/12/18 at 21:00 Topiramate (Topamax) 100 mg BID PO Last administered on 07/17/18at 10:09; Start 07/12/18 at 21:00 Hydrochlorothiazide (Microzide) 12.5 mg DAILY PO Last administered on at 11:44; Start 07/13/18 at 09:00; Stop 07/16/18 at 11:39; Status DC Ketorolac Tromethamine (Toradol 30mg Vial) 30 mg PRN Q6HRS PRN IV MILD - MODERATE PAIN; Start 07/12/18 at 20:00; Stop 07/17/18 at 19:59 Lactobacillus Rhamnosus (Culturelle) 1 cap BID PO Last administered on at 10:09; Start 07/13/18 at 09:00 Ciprofloxacin/ Dextrose 200 ml @ 200 mls/hr Q12H IV Last administered on at 10:49; Start 07/13/18 at 11:00; Stop 07/16/18 at 11:39; Status DC Metronidazole 100 ml @ 100 mls/hr Q8HRS IV Last administered on 07/16/18at 06: 09; Start 07/13/18 at 09:00; Stop 07/16/18 at 11:39; Status DC Potassium Chloride (Klor-Con) 40 meq 1X ONCE PO Last administered on at 09:26; Start 07/13/18 at 08:45; Stop 07/13/18 at 08:52; Status DC Potassium Chloride (Klor-Con) 40 meq DAILYWBKFT PO Last administered on at 10:09; Start 07/14/18 at 08:00 Loperamide HCl (Imodium) 2 mg PRN Q15MIN PRN PO DIARRHEA; Start 07/13/18 at 08: 45 Ondansetron HCl (Zofran) 4 mg PRN Q6HRS PRN IV NAUSEA/VOMITING Last administered on 07/16/18at 11:41; Start 07/13/18 at 08:45 Ondansetron HCl (Zofran Odt) 4 mg PRN Q6HRS PRN PO NAUSEA/VOMITING; Start 07/13 at 08:45 Acetaminophen (Tylenol) 500 mg PRN Q6HRS PRN PO MILD PAIN / TEMP Last administered on 07/17/18at 10:09; Start 07/13/18 at 08:45 Acetaminophen/ Hydrocodone Bitart (Lortab 5/325) 1 tab PRN Q4HRS PRN PO PAIN MODERATE TO SEVERE; Start 07/13/18 at 08:45 Sodium Chloride 1,000 ml @ 100 mls/hr 1X ONCE IV Last administered on at 09:33; Start 07/13/18 at 09:00; Stop 07/13/18 at 18:59; Status DC Oxcarbazepine (Trileptal) 900 mg BID PO Last administered on 07/17/18at 10:08; Start 07/13/18 at 21:00 Bisacodyl (Dulcolax Tab) 10 mg 1X ONCE PO Last administered on 07/13/18at 17:07 ; Start 07/13/18 at 17:00; Stop 07/13/18 at 17:01; Status DC Polyethylene Glycol (miraLAX Powder BULK BOTTLE) 238 gm 1X ONCE PO Last administered on 07/13/18at 19:35; Start 07/13/18 at 19:00; Stop 07/13/18 at 19:01 ; Status DC Sodium Chloride (Normal Saline Flush) 3 ml QSHIFT PRN IV AFTER MEDS AND BLOOD DRAWS; Start 07/13/18 at 16:45 Sodium Chloride (Normal Saline Flush) 3 ml QSHIFT PRN IV AFTER MEDS AND BLOOD DRAWS; Start 07/13/18 at 16:45; Status UNV Benzocaine (Hurricaine One) 1 spray STK-MED ONCE .ROUTE ; Start 07/14/18 at 07: 58; Stop 07/14/18 at 07:59; Status DC Midazolam HCl (Versed) 5 mg STK-MED ONCE .ROUTE ; Start 07/14/18 at 07:59; Stop 07/14/18 at 08:00; Status DC Fentanyl Citrate (Fentanyl 2ml Vial) 100 mcg STK-MED ONCE .ROUTE ; Start at 07:59; Stop 07/14/18 at 08:00; Status DC Propofol 40 ml @ As Directed STK-MED ONCE IV ; Start 07/14/18 at 08:34; Stop at 08:35; Status DC Lidocaine HCl (Lidocaine Pf 2% Vial) 5 ml STK-MED ONCE .ROUTE ; Start 07/14/18 at 08:34; Stop 07/14/18 at 08:35; Status DC Cefazolin Sodium/ Dextrose 50 ml @ 100 mls/hr 1X PREOP PRN IV affirmative action officer to OR Last administered on 07/15/18at 09:40; Start 07/15/18 at 06:00; Stop 07/15/18 at 18:00; Status DC Metronidazole 100 ml @ 100 mls/hr 1X PREOP PRN IV affirmative action officer to OR; Start at 06:00; Stop 07/15/18 at 18:00; Status DC Fentanyl Citrate (Fentanyl 2ml Vial) 25 mcg PRN Q5MIN PRN IV MILD PAIN; Start 07/15/18 at 07:00; Stop 07/15/18 at 21:00; Status DC Fentanyl Citrate (Fentanyl 2ml Vial) 50 mcg PRN Q5MIN PRN IV MODERATE TO SEVERE PAIN Last administered on 07/15/18at 13:55; Start 07/15/18 at 07:00; Stop 07/15/18 at 21:00; Status DC Morphine Sulfate (Morphine Sulfate) 1 mg PRN Q10MIN PRN IV SEVERE PAIN; Start 07/15/18 at 07:00; Stop 07/15/18 at 21:00; Status DC Ringer's Solution 1,000 ml @ 30 mls/hr Q24H IV ; Start 07/15/18 at 07:00; Stop 07/15/18 at 18:59; Status DC Lidocaine HCl (Xylocaine-Mpf 1% 2ml Vial) 2 ml PRN 1X PRN ID IV START; Start at 07:00; Stop 07/15/18 at 21:00; Status DC Hydromorphone HCl (Dilaudid) 0.5 mg PRN Q10MIN PRN IV SEV PAIN, Second choice; Start 07/15/18 at 07:00; Stop 07/15/18 at 21:00; Status DC Prochlorperazine Edisylate (Compazine) 5 mg PACU PRN PRN IV NAUSEA, MRX1; Start 07/15/18 at 07:00; Stop 07/15/18 at 21:00; Status DC Epinephrine HCl (Adrenalin) 30 mg STK-MED ONCE .ROUTE ; Start 07/15/18 at 08:02 ; Stop 07/15/18 at 09:03; Status DC Bupivacaine HCl (Sensorcaine Mpf 0.25%) 30 ml STK-MED ONCE .ROUTE ; Start at 08:02; Stop 07/15/18 at 09:03; Status DC Sevoflurane (Ultane) 90 ml STK-MED ONCE IH ; Start 07/15/18 at 09:12; Stop 07/15 at 09:13; Status DC Midazolam HCl (Versed) 2 mg STK-MED ONCE .ROUTE ; Start 07/15/18 at 09:12; Stop 07/15/18 at 09:13; Status DC Fentanyl Citrate (Fentanyl 2ml Vial) 100 mcg STK-MED ONCE .ROUTE ; Start at 09:12; Stop 07/15/18 at 09:13; Status DC Glycopyrrolate (Robinul) 1 mg STK-MED ONCE .ROUTE ; Start 07/15/18 at 09:13; Stop 07/15/18 at 09:14; Status DC Neostigmine Methylsulfate (Neostigmine Methylsulfate) 5 mg STK-MED ONCE .ROUTE ; Start 07/15/18 at 09:13; Stop 07/15/18 at 09:14; Status DC Rocuronium [place] (Zemuron) 50 mg STK-MED ONCE .ROUTE ; Start 07/15/18 at 09:13 ; Stop 07/15/18 at 09:14; Status DC Dexamethasone Sodium Phosphate (Decadron) 20 mg STK-MED ONCE .ROUTE ; Start at 09:13; Stop 07/15/18 at 09:14; Status DC Ketorolac Tromethamine (Toradol For Or Only) 30 mg STK-MED ONCE INJ ; Start at 09:13; Stop 07/15/18 at 09:14; Status DC Propofol 20 ml @ As Directed STK-MED ONCE IV ; Start 07/15/18 at 09:13; Stop at 09:14; Status DC Ondansetron HCl (Zofran) 4 mg STK-MED ONCE .ROUTE ; Start 07/15/18 at 09:13; Stop 07/15/18 at 09:14; Status DC Phenylephrine HCl (PHENYLEPHRINE in 0.9% NACL PF) 1 mg STK-MED ONCE IV ; Start 07/15/18 at 09:53; Stop 07/15/18 at 09:54; Status DC Fentanyl Citrate (Fentanyl 2ml Vial) 100 mcg STK-MED ONCE .ROUTE ; Start at 10:05; Stop 07/15/18 at 10:06; Status DC Esmolol HCl (Brevibloc) 100 mg STK-MED ONCE IV ; Start 07/15/18 at 10:09; Stop 07/15/18 at 10:10; Status DC Rocuronium [place] (Zemuron) 50 mg STK-MED ONCE .ROUTE ; Start 07/15/18 at 10:10 ; Stop 07/15/18 at 10:11; Status DC Ephedrine Sulfate (ePHEDrine PF IN SALINE SYRINGE) 50 mg STK-MED ONCE IV ; Start 07/15/18 at 11:02; Stop 07/15/18 at 11:03; Status DC Fentanyl Citrate (Fentanyl 2ml Vial) 100 mcg STK-MED ONCE .ROUTE ; Start at 11:09; Stop 07/15/18 at 11:10; Status DC Fentanyl Citrate (Fentanyl 2ml Vial) 100 mcg STK-MED ONCE .ROUTE ; Start at 12:51; Stop 07/15/18 at 12:52; Status DC Morphine Sulfate 30 ml @ 0 mls/hr CONT PRN PRN IV PER PROTOCOL Last administered on 07/16/18at 19:50; Start 07/15/18 at 13:30; Stop 07/17/18 at 09:43 ; Status DC Fentanyl Citrate (Fentanyl 2ml Vial) 100 mcg STK-MED ONCE .ROUTE ; Start at 13:34; Stop 07/15/18 at 13:35; Status DC Throat Lozenges (Chloraseptic) 1 spray PRN Q3HRS PRN PO SORE THROAT Last administered on 07/15/18at 21:55; Start 07/15/18 at 21:45 Sodium Chloride 1,000 ml @ 1,000 mls/hr 1X ONCE IV Last administered on at 03:45; Start 07/16/18 at 03:45; Stop 07/16/18 at 04:44; Status DC Sodium Chloride 1,000 ml @ 125 mls/hr 1X ONCE IV ; Start 07/16/18 at 04:45; Stop 07/16/18 at 12:44; Status Cancel Sodium Chloride 1,000 ml @ 125 mls/hr Q8H IV Last administered on 07/17/18at 14 :18; Start 07/16/18 at 05:00 Enoxaparin Sodium (Lovenox 40mg Syringe) 40 mg Q24H SQ Last administered on at 10:16; Start 07/16/18 at 10:00 Albuterol/ Ipratropium (Duoneb) 3 ml RTQID NEB Last administered on 07/17/18at 11:00; Start 07/16/18 at 12:00 Albuterol Sulfate (Ventolin Neb Soln) 2.5 mg PRN Q4HRS PRN NEB SHORTNESS OF BREATH; Start 07/16/18 at 11:45 Al Hydroxide/Mg Hydroxide (Mylanta Plus Xs) 30 ml PRN Q2HR PRN PO HEARTBURN / GAS; Start 07/16/18 at 22:00; Stop 07/16/18 at 22:00; Status DC Famotidine (Pepcid) 20 mg QHS PO ; Start 07/17/18 at 21:00; Stop 07/17/18 at 21: 00; Status DC Famotidine (Pepcid) 20 mg 1X ONCE PO ; Start 07/16/18 at 22:00; Stop 07/16/18 at 22:00; Status DC Famotidine (Pepcid Vial) 20 mg QHS IVP ; Start 07/17/18 at 21:00 Famotidine (Pepcid Vial) 20 mg 1X ONCE IVP Last administered on 07/16/18at 22: 38; Start 07/16/18 at 22:30; Stop 07/16/18 at 22:31; Status DC Iron Sucrose 200 mg/Sodium Chloride 110 ml @ 55 mls/hr DAILY IV Last administered on 07/17/18at 14:18; Start 07/17/18 at 12:30; Stop 07/21/18 at 12:29 Active Scripts Active Reported Advair 250-50 Diskus (Fluticasone/Salmeterol) 1 Each Disk.w.dev 1 Puff IH BID Proair Hfa Inhaler (Albuterol Sulfate) 8.5 Gm Hfa.aer.ad 1 Puff INH PRN Q6HRS PRN Amitiza (Lubiprostone) 8 Mcg Capsule 1 Cap PO BID Miralax (Polyethylene Glycol 3350) 17 Gm Powd.pack 1 Packet PO BID Zyrtec (Cetirizine Hcl) 10 Mg Tablet 1 Tab PO DAILY Atorvastatin Calcium 20 Mg Tablet 20 Mg PO HS Topiramate 100 Mg Tablet 1 Tab PO BID Oxcarbazepine 300 Mg Tablet 1 Tab PO BID Lisinopril-Hctz 10-12.5 Mg Tab (Lisinopril/Hydrochlorothiazide) 1 Each Tablet 1 Tab PO DAILY Vitals/I & O Vital Sign - Last 24 Hours 07/16/18 07/16/18 07/16/18 07/16/18 15:00 19:00 19:50 20:00 Temp 98.1 97.3 98.1 97.3 Pulse 77 91 Resp 16 16 B/P (MAP) 119/71 (87) 108/69 (82) Pulse Ox 98 100 O2 Delivery Nasal Cannula Nasal Cannula Room Air Room Air O2 Flow Rate 2.0 2.0 07/16/18 07/16/18 07/16/18 07/17/18 20:02 20:23 23:00 03:00 Temp 99.0 99.3 99.0 99.3 Pulse 90 95 Resp 16 16 B/P (MAP) 115/71 (86) 101/65 (77) Pulse Ox 99 99 99 O2 Delivery Room Air Room Air Nasal Cannula Nasal Cannula O2 Flow Rate 2.0 2.0 07/17/18 07/17/18 07/17/18 07/17/18 07:00 07:19 08:00 10:10 Temp 98.8 98.8 Pulse 106 106 Resp 16 B/P (MAP) 123/81 (95) 123/81 Pulse Ox 98 100 O2 Delivery Nasal Cannula Room Air Room Air O2 Flow Rate 2.0 07/17/18 11:11 Pulse Ox 95 O2 Delivery Nasal Cannula O2 Flow Rate 2.0 Intake and Output 07/16/18 07/16/18 07/17/18 15:00 23:00 07:00 Intake Total 1030 ml 1000 ml Output Total 750 ml 225 ml Balance 280 ml 775 ml KAREN JORDAN MD Jul 17, 2018 15:01
--- NOTE | 2018-07-17 18:33 | PDOC2 ---
NEUROLOGY CONSULT Date of Admission Date of Admission DATE: 07/17/18 TIME: 18:21 Reason for Consult Reason for Consult: IMPRESSION: Confusional episode. Seizure? UTI. Colonic malignance possible. Abdominal pain. Leukocytosis. Cholelithiasis. Anemia. HLD. Obesity. RECOMMENDATIONS/PLAN: EEG. Lab: see orders. Continue Trileptal. Continue Topamax 100 mg bid. Continue Lipitor HS. Treat medical diseases. Consulted GI. HISTORY OF THE PRESENT ILLNESS: 47-y-old AA female patient with above medical diseases has been having sympotms of abdominal pain, vomiting and diarrhea for admission. She had Hx of seizure many years ago, but was seizure free for several years. She had episodes of confusions and suspected possible seizures, so Neurology was requested for consultation. No shaking, jerking or magui movements. Past Medical History Cardiovascular: HTN, Hyperlipidemia Pulmonary: Asthma CENTRAL NERVOUS SYSTEM: Seizure Past Surgical History Family History Diabetes Social History Smoking <1 pack per day ALCOHOL: none Drugs: None Lives: with Family ALLERGY: Reviewed. MEDICATIONS: Refer to [facility] REVIEW OF SYSTEMS: Constitutional: Obesity. Head: No traumatic brain or head injury. Skin: No edema, or rash. Ear: No infection. Eyes: No vision loss or color blindness. Nose: No bleeding or purulent discharges. Hearing: No hearing decrease. Neck: No injury. Breast: No history of cancer, masses,or discharges. Cardiac: HTN, HLD. Pulmonary: No COPD. GI: Possible malignant colonic mass this time. Urinary/genital: UTI. Endocrinologic: Obesity. Skeletomuscular: No muscular atrophy, deformity. Neurological: see HP. Psychiatric: Substance use/abuse. Otherwise, not [id number] review of systems. PHYSICAL EXAMINATION: General appearance is in subacute distress. HEENT: Normocephalic and nontraumatic. Eyes, nose, ears, and throat are unremarkable. Neck is supple. No lymphadenopathy. No bruits are heard over the carotid artery. No crepitus. Cardiovascular: S1, S2, regular rate and rhythm. Pulmonary: Clear to auscultation bilaterally. Abdomen: Bowel sounds are positive. Extremities: No rash, lesions, or edema. No restriction of range of motion NEUROLOGICAL EXAMINATION: Alert Oriented to time, place and person. PERRL. EOMI. CN: no focal findings. Muscle tone: within normal. Muscle strength: 5 DTR: 2 Plantar reflex: Flexor response bilaterally Gait: not examined in bed. Sensory exam: no abnormal findings. No cerebellar signs elicited. F-T-N test accurate. Current Medications Current Medications Current Medications Sodium Chloride 1,000 ml @ 1,000 mls/hr 1X ONCE IV Last administered on at 09:37; Start 07/12/18 at 09:15; Stop 07/12/18 at 10:14; Status DC Ondansetron HCl (Zofran) 4 mg 1X ONCE IV Last administered on 07/12/18at 09:43 ; Start 07/12/18 at 09:15; Stop 07/12/18 at 09:16; Status DC Dicyclomine HCl (Bentyl) 20 mg 1X ONCE IM Last administered on 07/12/18at 10:44 ; Start 07/12/18 at 09:15; Stop 07/12/18 at 09:16; Status DC Iohexol (Omnipaque 300 Mg/ml) 75 ml 1X ONCE IV Last administered on 07/12/18at 10:30; Start 07/12/18 at 10:30; Stop 07/12/18 at 10:32; Status DC Info (CONTRAST GIVEN -- Rx MONITORING) 1 each PRN DAILY PRN MC SEE COMMENTS; Start 07/12/18 at 10:45; Stop 07/14/18 at 10:44; Status DC Metronidazole 100 ml @ 100 mls/hr 1X ONCE IV Last administered on 07/12/18at 13:10; Start 07/12/18 at 12:30; Stop 07/12/18 at 13:29; Status DC Ciprofloxacin/ Dextrose 200 ml @ 200 mls/hr Q12HR IV Last administered on 07/12at 23:00; Start 07/12/18 at 13:30; Stop 07/13/18 at 08:57; Status DC Morphine Sulfate (Morphine Sulfate) 2 mg PRN Q2HR PRN IV SEVERE PAIN Last administered on 07/13/18at 16:10; Start 07/12/18 at 16:00; Stop 07/17/18 at 09:36 ; Status DC Atorvastatin Calcium (Lipitor) 20 mg HS PO Last administered on 07/16/18at 20:26 ; Start 07/12/18 at 21:00 Cetirizine HCl (ZyrTEC) 10 mg DAILY PO Last administered on 07/17/18at 10:09; Start 07/12/18 at 16:00 Lubiprostone (Amitiza) 8 mcg BID PO Last administered on 07/13/18at 08:23; Start 07/12/18 at 21:00; Stop 07/13/18 at 08:49; Status DC Lisinopril (Prinivil) 10 mg DAILY PO Last administered on 07/17/18at 10:10; Start 07/13/18 at 09:00 Oxcarbazepine (Trileptal) 300 mg BID PO Last administered on 07/13/18at 08:23; Start 07/12/18 at 21:00; Stop 07/13/18 at 11:19; Status DC Polyethylene Glycol (miraLAX PACKET) 17 gm BID PO Last administered on at 10:09; Start 07/12/18 at 21:00 Topiramate (Topamax) 100 mg BID PO Last administered on 07/17/18at 10:09; Start 07/12/18 at 21:00 Hydrochlorothiazide (Microzide) 12.5 mg DAILY PO Last administered on at 11:44; Start 07/13/18 at 09:00; Stop 07/16/18 at 11:39; Status DC Ketorolac Tromethamine (Toradol 30mg Vial) 30 mg PRN Q6HRS PRN IV MILD - MODERATE PAIN; Start 07/12/18 at 20:00; Stop 07/17/18 at 19:59 Lactobacillus Rhamnosus (Culturelle) 1 cap BID PO Last administered on at 10:09; Start 07/13/18 at 09:00 Ciprofloxacin/ Dextrose 200 ml @ 200 mls/hr Q12H IV Last administered on at 10:49; Start 07/13/18 at 11:00; Stop 07/16/18 at 11:39; Status DC Metronidazole 100 ml @ 100 mls/hr Q8HRS IV Last administered on 07/16/18at 06: 09; Start 07/13/18 at 09:00; Stop 07/16/18 at 11:39; Status DC Potassium Chloride (Klor-Con) 40 meq 1X ONCE PO Last administered on at 09:26; Start 07/13/18 at 08:45; Stop 07/13/18 at 08:52; Status DC Potassium Chloride (Klor-Con) 40 meq DAILYWBKFT PO Last administered on at 10:09; Start 07/14/18 at 08:00 Loperamide HCl (Imodium) 2 mg PRN Q15MIN PRN PO DIARRHEA; Start 07/13/18 at 08: 45 Ondansetron HCl (Zofran) 4 mg PRN Q6HRS PRN IV NAUSEA/VOMITING Last administered on 07/16/18at 11:41; Start 07/13/18 at 08:45 Ondansetron HCl (Zofran Odt) 4 mg PRN Q6HRS PRN PO NAUSEA/VOMITING; Start 07/13 at 08:45 Acetaminophen (Tylenol) 500 mg PRN Q6HRS PRN PO MILD PAIN / TEMP Last administered on 07/17/18at 10:09; Start 07/13/18 at 08:45 Acetaminophen/ Hydrocodone Bitart (Lortab 5/325) 1 tab PRN Q4HRS PRN PO PAIN MODERATE TO SEVERE; Start 07/13/18 at 08:45 Sodium Chloride 1,000 ml @ 100 mls/hr 1X ONCE IV Last administered on at 09:33; Start 07/13/18 at 09:00; Stop 07/13/18 at 18:59; Status DC Oxcarbazepine (Trileptal) 900 mg BID PO Last administered on 07/17/18at 10:08; Start 07/13/18 at 21:00 Bisacodyl (Dulcolax Tab) 10 mg 1X ONCE PO Last administered on 07/13/18at 17:07 ; Start 07/13/18 at 17:00; Stop 07/13/18 at 17:01; Status DC Polyethylene Glycol (miraLAX Powder BULK BOTTLE) 238 gm 1X ONCE PO Last administered on 07/13/18at 19:35; Start 07/13/18 at 19:00; Stop 07/13/18 at 19:01 ; Status DC Sodium Chloride (Normal Saline Flush) 3 ml QSHIFT PRN IV AFTER MEDS AND BLOOD DRAWS; Start 07/13/18 at 16:45 Sodium Chloride (Normal Saline Flush) 3 ml QSHIFT PRN IV AFTER MEDS AND BLOOD DRAWS; Start 07/13/18 at 16:45; Status UNV Benzocaine (Hurricaine One) 1 spray STK-MED ONCE .ROUTE ; Start 07/14/18 at 07: 58; Stop 07/14/18 at 07:59; Status DC Midazolam HCl (Versed) 5 mg STK-MED ONCE .ROUTE ; Start 07/14/18 at 07:59; Stop 07/14/18 at 08:00; Status DC Fentanyl Citrate (Fentanyl 2ml Vial) 100 mcg STK-MED ONCE .ROUTE ; Start at 07:59; Stop 07/14/18 at 08:00; Status DC Propofol 40 ml @ As Directed STK-MED ONCE IV ; Start 07/14/18 at 08:34; Stop at 08:35; Status DC Lidocaine HCl (Lidocaine Pf 2% Vial) 5 ml STK-MED ONCE .ROUTE ; Start 07/14/18 at 08:34; Stop 07/14/18 at 08:35; Status DC Cefazolin Sodium/ Dextrose 50 ml @ 100 mls/hr 1X PREOP PRN IV creative consultant to OR Last administered on 07/15/18at 09:40; Start 07/15/18 at 06:00; Stop 07/15/18 at 18:00; Status DC Metronidazole 100 ml @ 100 mls/hr 1X PREOP PRN IV creative consultant to OR; Start at 06:00; Stop 07/15/18 at 18:00; Status DC Fentanyl Citrate (Fentanyl 2ml Vial) 25 mcg PRN Q5MIN PRN IV MILD PAIN; Start 07/15/18 at 07:00; Stop 07/15/18 at 21:00; Status DC Fentanyl Citrate (Fentanyl 2ml Vial) 50 mcg PRN Q5MIN PRN IV MODERATE TO SEVERE PAIN Last administered on 07/15/18at 13:55; Start 07/15/18 at 07:00; Stop 07/15/18 at 21:00; Status DC Morphine Sulfate (Morphine Sulfate) 1 mg PRN Q10MIN PRN IV SEVERE PAIN; Start 07/15/18 at 07:00; Stop 07/15/18 at 21:00; Status DC Ringer's Solution 1,000 ml @ 30 mls/hr Q24H IV ; Start 07/15/18 at 07:00; Stop 07/15/18 at 18:59; Status DC Lidocaine HCl (Xylocaine-Mpf 1% 2ml Vial) 2 ml PRN 1X PRN ID IV START; Start at 07:00; Stop 07/15/18 at 21:00; Status DC Hydromorphone HCl (Dilaudid) 0.5 mg PRN Q10MIN PRN IV SEV PAIN, Second choice; Start 07/15/18 at 07:00; Stop 07/15/18 at 21:00; Status DC Prochlorperazine Edisylate (Compazine) 5 mg PACU PRN PRN IV NAUSEA, MRX1; Start 07/15/18 at 07:00; Stop 07/15/18 at 21:00; Status DC Epinephrine HCl (Adrenalin) 30 mg STK-MED ONCE .ROUTE ; Start 07/15/18 at 08:02 ; Stop 07/15/18 at 09:03; Status DC Bupivacaine HCl (Sensorcaine Mpf 0.25%) 30 ml STK-MED ONCE .ROUTE ; Start at 08:02; Stop 07/15/18 at 09:03; Status DC Sevoflurane (Ultane) 90 ml STK-MED ONCE IH ; Start 07/15/18 at 09:12; Stop 07/15 at 09:13; Status DC Midazolam HCl (Versed) 2 mg STK-MED ONCE .ROUTE ; Start 07/15/18 at 09:12; Stop 07/15/18 at 09:13; Status DC Fentanyl Citrate (Fentanyl 2ml Vial) 100 mcg STK-MED ONCE .ROUTE ; Start at 09:12; Stop 07/15/18 at 09:13; Status DC Glycopyrrolate (Robinul) 1 mg STK-MED ONCE .ROUTE ; Start 07/15/18 at 09:13; Stop 07/15/18 at 09:14; Status DC Neostigmine Methylsulfate (Neostigmine Methylsulfate) 5 mg STK-MED ONCE .ROUTE ; Start 07/15/18 at 09:13; Stop 07/15/18 at 09:14; Status DC Rocuronium [place] (Zemuron) 50 mg STK-MED ONCE .ROUTE ; Start 07/15/18 at 09:13 ; Stop 07/15/18 at 09:14; Status DC Dexamethasone Sodium Phosphate (Decadron) 20 mg STK-MED ONCE .ROUTE ; Start at 09:13; Stop 07/15/18 at 09:14; Status DC Ketorolac Tromethamine (Toradol For Or Only) 30 mg STK-MED ONCE INJ ; Start at 09:13; Stop 07/15/18 at 09:14; Status DC Propofol 20 ml @ As Directed STK-MED ONCE IV ; Start 07/15/18 at 09:13; Stop at 09:14; Status DC Ondansetron HCl (Zofran) 4 mg STK-MED ONCE .ROUTE ; Start 07/15/18 at 09:13; Stop 07/15/18 at 09:14; Status DC Phenylephrine HCl (PHENYLEPHRINE in 0.9% NACL PF) 1 mg STK-MED ONCE IV ; Start 07/15/18 at 09:53; Stop 07/15/18 at 09:54; Status DC Fentanyl Citrate (Fentanyl 2ml Vial) 100 mcg STK-MED ONCE .ROUTE ; Start at 10:05; Stop 07/15/18 at 10:06; Status DC Esmolol HCl (Brevibloc) 100 mg STK-MED ONCE IV ; Start 07/15/18 at 10:09; Stop 07/15/18 at 10:10; Status DC Rocuronium [place] (Zemuron) 50 mg STK-MED ONCE .ROUTE ; Start 07/15/18 at 10:10 ; Stop 07/15/18 at 10:11; Status DC Ephedrine Sulfate (ePHEDrine PF IN SALINE SYRINGE) 50 mg STK-MED ONCE IV ; Start 07/15/18 at 11:02; Stop 07/15/18 at 11:03; Status DC Fentanyl Citrate (Fentanyl 2ml Vial) 100 mcg STK-MED ONCE .ROUTE ; Start at 11:09; Stop 07/15/18 at 11:10; Status DC Fentanyl Citrate (Fentanyl 2ml Vial) 100 mcg STK-MED ONCE .ROUTE ; Start at 12:51; Stop 07/15/18 at 12:52; Status DC Morphine Sulfate 30 ml @ 0 mls/hr CONT PRN PRN IV PER PROTOCOL Last administered on 07/16/18at 19:50; Start 07/15/18 at 13:30; Stop 07/17/18 at 09:43 ; Status DC Fentanyl Citrate (Fentanyl 2ml Vial) 100 mcg STK-MED ONCE .ROUTE ; Start at 13:34; Stop 07/15/18 at 13:35; Status DC Throat Lozenges (Chloraseptic) 1 spray PRN Q3HRS PRN PO SORE THROAT Last administered on 07/15/18at 21:55; Start 07/15/18 at 21:45 Sodium Chloride 1,000 ml @ 1,000 mls/hr 1X ONCE IV Last administered on at 03:45; Start 07/16/18 at 03:45; Stop 07/16/18 at 04:44; Status DC Sodium Chloride 1,000 ml @ 125 mls/hr 1X ONCE IV ; Start 07/16/18 at 04:45; Stop 07/16/18 at 12:44; Status Cancel Sodium Chloride 1,000 ml @ 125 mls/hr Q8H IV Last administered on 07/17/18at 14 :18; Start 07/16/18 at 05:00 Enoxaparin Sodium (Lovenox 40mg Syringe) 40 mg Q24H SQ Last administered on at 10:16; Start 07/16/18 at 10:00 Albuterol/ Ipratropium (Duoneb) 3 ml RTQID NEB Last administered on 07/17/18at 18:09; Start 07/16/18 at 12:00 Albuterol Sulfate (Ventolin Neb Soln) 2.5 mg PRN Q4HRS PRN NEB SHORTNESS OF BREATH; Start 07/16/18 at 11:45 Al Hydroxide/Mg Hydroxide (Mylanta Plus Xs) 30 ml PRN Q2HR PRN PO HEARTBURN / GAS; Start 07/16/18 at 22:00; Stop 07/16/18 at 22:00; Status DC Famotidine (Pepcid) 20 mg QHS PO ; Start 07/17/18 at 21:00; Stop 07/17/18 at 21: 00; Status DC Famotidine (Pepcid) 20 mg 1X ONCE PO ; Start 07/16/18 at 22:00; Stop 07/16/18 at 22:00; Status DC Famotidine (Pepcid Vial) 20 mg QHS IVP ; Start 07/17/18 at 21:00 Famotidine (Pepcid Vial) 20 mg 1X ONCE IVP Last administered on 07/16/18at 22: 38; Start 07/16/18 at 22:30; Stop 07/16/18 at 22:31; Status DC Iron Sucrose 200 mg/Sodium Chloride 110 ml @ 55 mls/hr DAILY IV Last administered on 07/17/18at 14:18; Start 07/17/18 at 12:30; Stop 07/21/18 at 12:29 Active Scripts Active Reported Advair 250-50 Diskus (Fluticasone/Salmeterol) 1 Each Disk.w.dev 1 Puff IH BID Proair Hfa Inhaler (Albuterol Sulfate) 8.5 Gm Hfa.aer.ad 1 Puff INH PRN Q6HRS PRN Amitiza (Lubiprostone) 8 Mcg Capsule 1 Cap PO BID Miralax (Polyethylene Glycol 3350) 17 Gm Powd.pack 1 Packet PO BID Zyrtec (Cetirizine Hcl) 10 Mg Tablet 1 Tab PO DAILY Atorvastatin Calcium 20 Mg Tablet 20 Mg PO HS Topiramate 100 Mg Tablet 1 Tab PO BID Oxcarbazepine 300 Mg Tablet 1 Tab PO BID Lisinopril-Hctz 10-12.5 Mg Tab (Lisinopril/Hydrochlorothiazide) 1 Each Tablet 1 Tab PO DAILY Allergies Allergies: Allergies Coded Allergies Type Severity Reaction Last Updated Verified No Known Drug Allergies 07/12/18 No ROS Review of System The patient denies any associated fevers, chills, headache, ear pain, rhinorrhea , sore throat, stiff neck, productive cough, chest pain, shortness of breath, back or flank pain, abdominal pain, nausea, vomiting, diarrhea, constipation, dysuria, rash, numbness, weakness, tingling, incontinence, difficulty ambulating, or diaphoresis. Physical Exam Physical Exam General: Well developed, well nourished, no acute distress, well appearing HEENT: Pupils equally round and reactive to light, EOMI, no discharge, normal conjunctiva Neck: Supple, no nuchal rigidity, no JVD, trachea midline, no tenderness Cardiac: RRR, no murmurs, no gallops, no rubs Chest/Lungs: CTAB, no wheeze, no rhonchi, no crackles Abdomen: soft, non-distended, no guarding, no peritoneal signs, non-tender Back: No tenderness Extremities: no edema, pulses intact, non-tender,capillary refill <3 sec bilateral upper and lower extremities, Neuro: Alert and oriented x 4, no focal deficits, normal speech Vitals Vitals: Vital Signs Date Time Temp Pulse Resp B/P (MAP) Pulse Ox O2 Delivery O2 Flow Rate FiO2 07/17/18 18:11 96 Nasal Cannula 2.0 07/17/18 15:00 98.1 107 16 120/78 (92) 98.1 Labs Labs Laboratory Tests Test 07/16/18 06:30 White Blood Count 8.1 x10^3/uL (4.0-11.0) Red Blood Count 3.63 x10^6/uL (3.50-5.40) Hemoglobin 9.6 g/dL (12.0-15.5) Hematocrit 28.7 % (36.0-47.0) Mean Corpuscular Volume 79 fL (79-100) Mean Corpuscular Hemoglobin 26 pg (25-35) Mean Corpuscular Hemoglobin Concent 33 g/dL (31-37) Red Cell Distribution Width 17.9 % (11.5-14.5) Platelet Count 262 x10^3/uL (140-400) Neutrophils (%) (Auto) 75 % (31-73) Lymphocytes (%) (Auto) 18 % (24-48) Monocytes (%) (Auto) 7 % (0-9) Eosinophils (%) (Auto) 0 % (0-3) Basophils (%) (Auto) 0 % (0-3) Neutrophils # (Auto) 6.0 x10^3uL (1.8-7.7) Lymphocytes # (Auto) 1.4 x10^3/uL (1.0-4.8) Monocytes # (Auto) 0.5 x10^3/uL (0.0-1.1) Eosinophils # (Auto) 0.0 x10^3/uL (0.0-0.7) Basophils # (Auto) 0.0 x10^3/uL (0.0-0.2) Sodium Level 142 mmol/L (136-145) Potassium Level 3.6 mmol/L (3.5-5.1) Chloride Level 109 mmol/L (98-107) Carbon Dioxide Level 21 mmol/L (21-32) Anion Gap 12 (6-14) Blood Urea Nitrogen 10 mg/dL (7-20) Creatinine 1.2 mg/dL (0.6-1.0) Estimated GFR (Cockcroft-Gault) 58.8 Glucose Level 87 mg/dL (70-99) Calcium Level 8.7 mg/dL (8.5-10.1) Magnesium Level 1.9 mg/dL (1.8-2.4) Iron Level 34 ug/dL (50-170) Total Iron Binding Capacity 203 ug/dL (250-450) Iron Saturation 17 % (15-34) Ferritin 32 ng/mL (8-252) BERNARD ARREAGA MD Jul 17, 2018 18:33
[2018-07-17] MEDS: ONDANSETRON PF 4 MG/2 ML VIAL. IV PRN (18:46)
[2018-07-17 19:20] VITALS: BP 123/85
[2018-07-17] MEDS ORDERED: FAMOTIDINE 20 MG TABLET. PO SCH (21:00)
[2018-07-17] MEDS: ATORVASTATIN CALCIUM 20 MG TABLET PO SCH (21:16)
[2018-07-17] MEDS: FAMOTIDINE 20 MG/2 ML VIAL IVP SCH ×2 (21:16→21:34)
[2018-07-17] MEDS: HYDROcodone/APAP 5/325MG 1 TAB TABLET PO PRN (21:19)
[2018-07-17] MEDS: CALCIUM CARBONATE 500 MG TAB.CHEW PO PRN (21:20)
[2018-07-17 23:07] VITALS: BP 116/72
[2018-07-17] MEDS: ALBUTEROL SULFATE 2.5 MG/3 ML NEBU. NEB PRN (23:21)
[2018-07-18] MEDS: IV NORMAL SALINE 1000ML BAG 1,000 ML IV SCH ×3 (01:50→21:00)
[2018-07-18] MEDS: ONDANSETRON PF 4 MG/2 ML VIAL. IV PRN (01:50)
[2018-07-18 03:14] VITALS: BP 126/82
[2018-07-18 04:57] LABS: BASO % 0 % (0-3); EOS % 0 % (0-3); HEMATOCRIT 31.4 % (36.0-47.0); HEMOGLOBIN 10.5 g/dL (12.0-15.5); LYMPH # 1.2 x10^3/uL (1.0-4.8); LYMPH % 10 % (24-48); MEAN CORPUSCULAR HEMOGLOBIN 26 pg (25-35); MEAN CORPUSCULAR HGB CONC 33 g/dL (31-37); MEAN CORPUSCULAR VOLUME 79 fL (79-100); MONO # 0.6 x10^3/uL (0.0-1.1); MONO % 5 % (0-9); NEUT # 10.4 x10^3uL (1.8-7.7); NEUT % 85 % (31-73); PLATELET COUNT 311 x10^3/uL (140-400); RED BLOOD COUNT 3.97 x10^6/uL (3.50-5.40); RED CELL DISTRIBUTION WIDTH 17.6 % (11.5-14.5); WHITE BLOOD COUNT 12.2 x10^3/uL (4.0-11.0)
[2018-07-18] MEDS: ALBUTEROL SULFATE 2.5 MG/3 ML NEBU. NEB PRN ×8 (05:03→05:14)
[2018-07-18 05:32] LABS: BARBITURATES NEG (NEG); BENZODIAZEPINES NEG (NEG); CANNABINOIDS NEG (NEG); COCAINE NEG (NEG); METHADONE NEG (NEG); OPIATES POS (NEG); PHENCYCLIDINE NEG (NEG)
[2018-07-18 05:33] LABS: AMPHETAMINE/METHAMPHETAMINE NEG (NEG)
[2018-07-18 06:10] LABS: CALCIUM 9.3 mg/dL (8.5-10.1); CREATININE 0.9 mg/dL (0.6-1.0); GFR 81.9; POTASSIUM 3.6 mmol/L (3.5-5.1)
[2018-07-18 07:00] VITALS: BP_SYST 118; BP_SYST 126; BP_DIAS 67; BP_DIAS 82
[2018-07-18] MEDS: IPRATRPIUM/ALBUTEROL 0.5/2.5MG 3 ML NEBU. NEB SCH ×4 (07:00→19:42)
[2018-07-18] MEDS ORDERED: IOHEXOL 300 MG/ML 100ML VIAL. IV ONE (08:15)
[2018-07-18] MEDS ORDERED: CONTRAST GIVEN. MC PRN (08:15)
--- NOTE | 2018-07-18 08:19 | PDOC ---
[facility] 07/18/18 0819: SURGICAL PROGRESS NOTE Subjective alert now memory clear liquid stool, some emesis pain managed Vital Signs Vital Signs Date Time Temp Pulse Resp B/P (MAP) Pulse Ox O2 Delivery O2 Flow Rate FiO2 07/18/18 07:01 93 Nasal Cannula 2.0 07/18/18 03:14 98.1 91 18 126/82 (97) 98.1 I&O Intake and Output 07/18/18 07:00 Intake Total 80 ml Output Total 1230 ml Balance -1150 ml Intake Oral 50 ml IV Total 30 ml Output Urine Total 1200 ml Emesis 30 ml # Voids 5 # Bowel Movements 3 PATIENT HAS A ADAM: No General: Alert, Cooperative, No acute distress Abdomen: Soft, Other (dressing dry, ND) Labs Laboratory Tests Test 07/18/18 03:20 07/18/18 04:05 Urine Opiates Screen Pos (NEG) Urine Methadone Screen Neg (NEG) Urine Barbiturates Neg (NEG) Urine Phencyclidine Screen Neg (NEG) Urine Amphetamine/Methamphetamine Neg (NEG) Urine Benzodiazepines Screen Neg (NEG) Urine Cocaine Screen Neg (NEG) Urine Cannabinoids Screen Neg (NEG) Urine Ethyl Alcohol Neg (NEG) White Blood Count 12.2 x10^3/uL (4.0-11.0) Red Blood Count 3.97 x10^6/uL (3.50-5.40) Hemoglobin 10.5 g/dL (12.0-15.5) Hematocrit 31.4 % (36.0-47.0) Mean Corpuscular Volume 79 fL (79-100) Mean Corpuscular Hemoglobin 26 pg (25-35) Mean Corpuscular Hemoglobin Concent 33 g/dL (31-37) Red Cell Distribution Width 17.6 % (11.5-14.5) Platelet Count 311 x10^3/uL (140-400) Neutrophils (%) (Auto) 85 % (31-73) Lymphocytes (%) (Auto) 10 % (24-48) Monocytes (%) (Auto) 5 % (0-9) Eosinophils (%) (Auto) 0 % (0-3) Basophils (%) (Auto) 0 % (0-3) Neutrophils # (Auto) 10.4 x10^3uL (1.8-7.7) Lymphocytes # (Auto) 1.2 x10^3/uL (1.0-4.8) Monocytes # (Auto) 0.6 x10^3/uL (0.0-1.1) Eosinophils # (Auto) 0.0 x10^3/uL (0.0-0.7) Basophils # (Auto) 0.0 x10^3/uL (0.0-0.2) Sodium Level 141 mmol/L (136-145) Potassium Level 3.6 mmol/L (3.5-5.1) Chloride Level 106 mmol/L (98-107) Carbon Dioxide Level 20 mmol/L (21-32) Anion Gap 15 (6-14) Blood Urea Nitrogen 9 mg/dL (7-20) Creatinine 0.9 mg/dL (0.6-1.0) Estimated GFR (Cockcroft-Gault) 81.9 Glucose Level 119 mg/dL (70-99) Calcium Level 9.3 mg/dL (8.5-10.1) Laboratory Tests Test 07/18/18 03:20 07/18/18 04:05 Urine Opiates Screen Pos (NEG) Urine Methadone Screen Neg (NEG) Urine Barbiturates Neg (NEG) Urine Phencyclidine Screen Neg (NEG) Urine Amphetamine/Methamphetamine Neg (NEG) Urine Benzodiazepines Screen Neg (NEG) Urine Cocaine Screen Neg (NEG) Urine Cannabinoids Screen Neg (NEG) Urine Ethyl Alcohol Neg (NEG) White Blood Count 12.2 x10^3/uL (4.0-11.0) Red Blood Count 3.97 x10^6/uL (3.50-5.40) Hemoglobin 10.5 g/dL (12.0-15.5) Hematocrit 31.4 % (36.0-47.0) Mean Corpuscular Volume 79 fL (79-100) Mean Corpuscular Hemoglobin 26 pg (25-35) Mean Corpuscular Hemoglobin Concent 33 g/dL (31-37) Red Cell Distribution Width 17.6 % (11.5-14.5) Platelet Count 311 x10^3/uL (140-400) Neutrophils (%) (Auto) 85 % (31-73) Lymphocytes (%) (Auto) 10 % (24-48) Monocytes (%) (Auto) 5 % (0-9) Eosinophils (%) (Auto) 0 % (0-3) Basophils (%) (Auto) 0 % (0-3) Neutrophils # (Auto) 10.4 x10^3uL (1.8-7.7) Lymphocytes # (Auto) 1.2 x10^3/uL (1.0-4.8) Monocytes # (Auto) 0.6 x10^3/uL (0.0-1.1) Eosinophils # (Auto) 0.0 x10^3/uL (0.0-0.7) Basophils # (Auto) 0.0 x10^3/uL (0.0-0.2) Sodium Level 141 mmol/L (136-145) Potassium Level 3.6 mmol/L (3.5-5.1) Chloride Level 106 mmol/L (98-107) Carbon Dioxide Level 20 mmol/L (21-32) Anion Gap 15 (6-14) Blood Urea Nitrogen 9 mg/dL (7-20) Creatinine 0.9 mg/dL (0.6-1.0) Estimated GFR (Cockcroft-Gault) 81.9 Glucose Level 119 mg/dL (70-99) Calcium Level 9.3 mg/dL (8.5-10.1) Problem List Problems Medical Problems: (1) Abdominal pain Status: Acute (2) Bandemia Status: Acute (3) Leukocytosis Status: Acute (4) Nausea vomiting and diarrhea Status: Acute (5) UTI (urinary tract infection) Status: Acute Assessment/Plan POD#3 open right colon NPO, await improved bowel function, no emesis c/o reflux--added ROSHAN Tucker MD 07/18/18 0836: SURGICAL PROGRESS NOTE Assessment/Plan Agree with above IS[facility] Jul 18, 2018 08:19 ROSHAN MANN MD Jul 18, 2018 08:36
[2018-07-18] MEDS: FAMOTIDINE 20 MG/2 ML VIAL IVP SCH ×2 (09:00→21:11)
[2018-07-18] MEDS: POLYETHYLENE GLYCOL 3350 17 GM PACKET. PO SCH ×3 (09:00→21:13)
[2018-07-18] MEDS: IRON SUCROSE COMPLEX 200 MG in IV NORMAL SALINE 100ML 100 ML IV SCH (09:26)
--- NOTE | 2018-07-18 09:26 | PDOC ---
SUBJECTIVE Subjective S: Getting her CT chest this morning, CEA has not yet been drawn, otherwise doing okay, path still pending O: Physical exam: Gen.: Well-nourished and well-developed, resting in bed Psychiatric: Pleasant mood and affect, somewhat limited ability to understand medical information Labs: Ferritin of 32, iron sat of 17 Assessment and Plan: She is a 47-year-old female with colon cancer, resected, pathology pending Colon cancer: We'll check CT chest for staging today as well as CEA has been ordered, and we are still awaiting final pathology report Anemia: She had a ferritin of 14 in October 2017, with now a ferritin of 32 and iron sat of 17% though TIBC was low, rec adding oral iron when she is no longer npo Tobacco abuse: Highly recommend smoking cessation Cervical intraepithelial neoplasia: She has gynecology follow-up pending DVT prophylaxis: w/ Lovenox Disposition: We'll follow-up on Saturday with further recommendations based on CT and labs and path, however if she is discharged over the weekend we can follow up as an outpatient as needed Thank you kindly, and please do not hesitate to call with further questions. OBJECTIVE Vital Signs Vital Signs Date Time Temp Pulse Resp B/P (MAP) Pulse Ox O2 Delivery O2 Flow Rate FiO2 07/18/18 07:01 93 Nasal Cannula 2.0 07/18/18 05:16 98 Nasal Cannula 2.0 07/18/18 03:14 98.1 91 18 126/82 (97) 98 Nasal Cannula 2.0 98.1 07/17/18 23:22 98 Nasal Cannula 2.0 07/17/18 23:07 98.5 99 20 116/72 (87) 95 Nasal Cannula 2.0 98.5 07/17/18 22:19 20 98 Nasal Cannula 2.0 07/17/18 21:19 20 98 Nasal Cannula 2.0 07/17/18 20:00 Room Air 07/17/18 19:20 98.9 93 18 123/85 (98) 98 Nasal Cannula 2.0 98.9 07/17/18 18:11 96 Nasal Cannula 2.0 07/17/18 15:23 95 Nasal Cannula 2.0 07/17/18 15:00 98.1 107 16 120/78 (92) 99 Room Air 98.1 07/17/18 11:11 95 Nasal Cannula 2.0 07/17/18 10:10 106 123/81 I & O Intake and Output 07/18/18 07:00 Intake Total 80 ml Output Total 1230 ml Balance -1150 ml Intake Oral 50 ml IV Total 30 ml Output Urine Total 1200 ml Emesis 30 ml # Voids 5 # Bowel Movements 3 COMMENT Lab Laboratory Tests Test 07/18/18 03:20 07/18/18 04:05 Urine Opiates Screen Pos (NEG) Urine Methadone Screen Neg (NEG) Urine Barbiturates Neg (NEG) Urine Phencyclidine Screen Neg (NEG) Urine Amphetamine/Methamphetamine Neg (NEG) Urine Benzodiazepines Screen Neg (NEG) Urine Cocaine Screen Neg (NEG) Urine Cannabinoids Screen Neg (NEG) Urine Ethyl Alcohol Neg (NEG) White Blood Count 12.2 x10^3/uL (4.0-11.0) Red Blood Count 3.97 x10^6/uL (3.50-5.40) Hemoglobin 10.5 g/dL (12.0-15.5) Hematocrit 31.4 % (36.0-47.0) Mean Corpuscular Volume 79 fL (79-100) Mean Corpuscular Hemoglobin 26 pg (25-35) Mean Corpuscular Hemoglobin Concent 33 g/dL (31-37) Red Cell Distribution Width 17.6 % (11.5-14.5) Platelet Count 311 x10^3/uL (140-400) Neutrophils (%) (Auto) 85 % (31-73) Lymphocytes (%) (Auto) 10 % (24-48) Monocytes (%) (Auto) 5 % (0-9) Eosinophils (%) (Auto) 0 % (0-3) Basophils (%) (Auto) 0 % (0-3) Neutrophils # (Auto) 10.4 x10^3uL (1.8-7.7) Lymphocytes # (Auto) 1.2 x10^3/uL (1.0-4.8) Monocytes # (Auto) 0.6 x10^3/uL (0.0-1.1) Eosinophils # (Auto) 0.0 x10^3/uL (0.0-0.7) Basophils # (Auto) 0.0 x10^3/uL (0.0-0.2) Sodium Level 141 mmol/L (136-145) Potassium Level 3.6 mmol/L (3.5-5.1) Chloride Level 106 mmol/L (98-107) Carbon Dioxide Level 20 mmol/L (21-32) Anion Gap 15 (6-14) Blood Urea Nitrogen 9 mg/dL (7-20) Creatinine 0.9 mg/dL (0.6-1.0) Estimated GFR (Cockcroft-Gault) 81.9 Glucose Level 119 mg/dL (70-99) Calcium Level 9.3 mg/dL (8.5-10.1) PABLO CHOI MD Jul 18, 2018 09:26
[2018-07-18] MEDS: CALCIUM CARBONATE 500 MG TAB.CHEW PO PRN ×2 (09:31→16:30)
[2018-07-18] MEDS: CETIRIZINE HCL 10 MG TABLET. PO SCH (09:36)
[2018-07-18] MEDS: LACTOBACILLUS RHAMNOSUS GG 1 CAPSULE. PO SCH ×2 (09:36→21:11)
[2018-07-18] MEDS: POTASSIUM CHLORIDE 20 MEQ TABLET.ER. PO SCH (09:37)
[2018-07-18] MEDS: OXcarbazepine 300 MG TABLET PO SCH ×2 (09:39→21:11)
[2018-07-18] MEDS: TOPIRAMATE 25 MG TABLET. PO SCH ×2 (09:39→21:10)
[2018-07-18] MEDS: HYDROcodone/APAP 5/325MG 1 TAB TABLET PO PRN ×2 (09:39→16:30)
[2018-07-18] MEDS: LISINOPRIL 10 MG TABLET PO SCH (09:40)
[2018-07-18] MEDS: ENOXAPARIN 40 MG/0.4 ML SYRINGE. SQ SCH (09:59)
--- NOTE | 2018-07-18 10:04 | RAD ---
CT of the chest with contrast, 07/18/2018: HISTORY: Colon cancer staging Multidetector CT imaging was performed following an IV bolus injection of iodinated contrast material. The thoracic aorta is of normal caliber. No mediastinal or hilar adenopathy is seen. There are calcified nodes at the left hilum. There is mild streaky atelectasis in the left base with a trace amount of left-sided pleural fluid. Moderate atelectasis is present medially and posteriorly in the right base. There is a streaky ill-defined groundglass opacity in the anterior aspect of the left upper lobe measuring approximately 1.4 cm. No solid pulmonary mass is evident. A small amount of free fluid is now noted in the upper abdomen, presumably related to the recent abdominal surgery. Minimal postoperative pneumoperitoneum is also noted. Gallstones are again noted in the gallbladder. The stomach is moderately distended with fluid. IMPRESSION: 1. Moderate right lower lobe atelectasis. 2. Mild left basilar atelectasis with a trace amount of left-sided pleural fluid. 3. Small left upper lobe groundglass opacity. This may represent inflammation or scarring, although adenomatoid hyperplasia or low-grade adenocarcinoma cannot be excluded. CT follow-up is suggested. 4. Pneumoperitoneum with free fluid in the upper abdomen, presumably on a postoperative basis. PQRS Compliance Statement: One or more of the following individualized dose reduction techniques were utilized for this examination: 1. Automated exposure control 2. Adjustment of the mA and/or kV according to patient size 3. Use of iterative reconstruction technique Electronically signed by: Yunior Lorenzana MD (07/18/2018 10:00 AM) [facility]
[2018-07-18 11:00] VITALS: BP 147/90
[2018-07-18] MEDS ORDERED: LIDO:MAALOX 1:1 20 ML SINGLE DOSE. PO PRN (12:00)
[2018-07-18] MEDS: ONDANSETRON ODT 4 MG TAB.RAPDIS. PO PRN (14:03)
--- NOTE | 2018-07-18 14:34 | PDOC ---
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 Nonobstructing left intrarenal calculi. Enlarged fibroid uterus. Probable renal cysts. asthma HTN morbid obesity h/o seizure AMS at hosp, with RN SECURITY likely gastric bx + h pylori plan: fu wiht sx, npo,off RN SECURITY , ice chips ivf dc hctz, monitor bp, lisinopril for now dvt ppx add duoneb, albuterol prn cont seizure meds, neuro consult for AMS dc abx onco consulted, garsia CT tmr for staging h pylori treatment defer to GI talked to pt about the path and h pylori, however, pt seems has problem to understand. She doesnot remember that some docs coming to see her already, and not remember i told her 2 times she has colon Ca History of Present Illness History of Present Illness Out having surgery for colon mass which is a new diagnosis- dx after EGD colonoscopy this admission CAT scan: 1. Mural thickening involving the colon in the ileocecal valve region raising the possibility of colonic malignancy. An inflammatory process cannot be excluded. There is mild associated dilatation of the distal small bowel and mild mesenteric adenopathy at this level. 2. Small amount of free fluid in the pelvis. 3. Cholelithiasis. 4. Nonobstructing left intrarenal calculi. 5. Enlarged fibroid uterus. 6. Probable renal cysts. has 2 times BM 07/17 as per pt very confused 07/16 night, RN SECURITY stopped. pain is ok pt has some dementia or cognitive impairement, no remember what i told her daily Vitals Vitals Vital Signs Date Time Temp Pulse Resp B/P (MAP) Pulse Ox O2 Delivery O2 Flow Rate FiO2 07/18/18 11:22 97 Room Air 07/18/18 11:00 98.6 87 16 147/90 (109) 98.6 07/18/18 07:01 2.0 Physical Exam General: Alert, Cooperative, No acute distress Heart: Regular rate, Normal S1, Normal S2, No murmurs Lungs: Clear Abdomen: Soft, Other (dressing dry, ND) Extremities: No clubbing, No cyanosis Skin: No rashes, No breakdown Labs LABS Laboratory Tests Test 07/18/18 03:20 07/18/18 04:05 Urine Opiates Screen Pos (NEG) Urine Methadone Screen Neg (NEG) Urine Barbiturates Neg (NEG) Urine Phencyclidine Screen Neg (NEG) Urine Amphetamine/Methamphetamine Neg (NEG) Urine Benzodiazepines Screen Neg (NEG) Urine Cocaine Screen Neg (NEG) Urine Cannabinoids Screen Neg (NEG) Urine Ethyl Alcohol Neg (NEG) White Blood Count 12.2 x10^3/uL (4.0-11.0) Red Blood Count 3.97 x10^6/uL (3.50-5.40) Hemoglobin 10.5 g/dL (12.0-15.5) Hematocrit 31.4 % (36.0-47.0) Mean Corpuscular Volume 79 fL (79-100) Mean Corpuscular Hemoglobin 26 pg (25-35) Mean Corpuscular Hemoglobin Concent 33 g/dL (31-37) Red Cell Distribution Width 17.6 % (11.5-14.5) Platelet Count 311 x10^3/uL (140-400) Neutrophils (%) (Auto) 85 % (31-73) Lymphocytes (%) (Auto) 10 % (24-48) Monocytes (%) (Auto) 5 % (0-9) Eosinophils (%) (Auto) 0 % (0-3) Basophils (%) (Auto) 0 % (0-3) Neutrophils # (Auto) 10.4 x10^3uL (1.8-7.7) Lymphocytes # (Auto) 1.2 x10^3/uL (1.0-4.8) Monocytes # (Auto) 0.6 x10^3/uL (0.0-1.1) Eosinophils # (Auto) 0.0 x10^3/uL (0.0-0.7) Basophils # (Auto) 0.0 x10^3/uL (0.0-0.2) Sodium Level 141 mmol/L (136-145) Potassium Level 3.6 mmol/L (3.5-5.1) Chloride Level 106 mmol/L (98-107) Carbon Dioxide Level 20 mmol/L (21-32) Anion Gap 15 (6-14) Blood Urea Nitrogen 9 mg/dL (7-20) Creatinine 0.9 mg/dL (0.6-1.0) Estimated GFR (Cockcroft-Gault) 81.9 Glucose Level 119 mg/dL (70-99) Calcium Level 9.3 mg/dL (8.5-10.1) Assessment and Plan Assessmemt and Plan Problems Medical Problems: (1) Abdominal pain Status: Acute (2) Bandemia Status: Acute (3) Leukocytosis Status: Acute (4) Nausea vomiting and diarrhea Status: Acute (5) UTI (urinary tract infection) Status: Acute Comment Review of Relevant I have reviewed the following items dawson (where applicable) has been applied. Labs Laboratory Tests Test 07/18/18 03:20 07/18/18 04:05 Urine Opiates Screen Pos (NEG) Urine Methadone Screen Neg (NEG) Urine Barbiturates Neg (NEG) Urine Phencyclidine Screen Neg (NEG) Urine Amphetamine/Methamphetamine Neg (NEG) Urine Benzodiazepines Screen Neg (NEG) Urine Cocaine Screen Neg (NEG) Urine Cannabinoids Screen Neg (NEG) Urine Ethyl Alcohol Neg (NEG) White Blood Count 12.2 x10^3/uL (4.0-11.0) Red Blood Count 3.97 x10^6/uL (3.50-5.40) Hemoglobin 10.5 g/dL (12.0-15.5) Hematocrit 31.4 % (36.0-47.0) Mean Corpuscular Volume 79 fL (79-100) Mean Corpuscular Hemoglobin 26 pg (25-35) Mean Corpuscular Hemoglobin Concent 33 g/dL (31-37) Red Cell Distribution Width 17.6 % (11.5-14.5) Platelet Count 311 x10^3/uL (140-400) Neutrophils (%) (Auto) 85 % (31-73) Lymphocytes (%) (Auto) 10 % (24-48) Monocytes (%) (Auto) 5 % (0-9) Eosinophils (%) (Auto) 0 % (0-3) Basophils (%) (Auto) 0 % (0-3) Neutrophils # (Auto) 10.4 x10^3uL (1.8-7.7) Lymphocytes # (Auto) 1.2 x10^3/uL (1.0-4.8) Monocytes # (Auto) 0.6 x10^3/uL (0.0-1.1) Eosinophils # (Auto) 0.0 x10^3/uL (0.0-0.7) Basophils # (Auto) 0.0 x10^3/uL (0.0-0.2) Sodium Level 141 mmol/L (136-145) Potassium Level 3.6 mmol/L (3.5-5.1) Chloride Level 106 mmol/L (98-107) Carbon Dioxide Level 20 mmol/L (21-32) Anion Gap 15 (6-14) Blood Urea Nitrogen 9 mg/dL (7-20) Creatinine 0.9 mg/dL (0.6-1.0) Estimated GFR (Cockcroft-Gault) 81.9 Glucose Level 119 mg/dL (70-99) Calcium Level 9.3 mg/dL (8.5-10.1) Laboratory Tests Test 07/18/18 03:20 07/18/18 04:05 Urine Opiates Screen Pos (NEG) Urine Methadone Screen Neg (NEG) Urine Barbiturates Neg (NEG) Urine Phencyclidine Screen Neg (NEG) Urine Amphetamine/Methamphetamine Neg (NEG) Urine Benzodiazepines Screen Neg (NEG) Urine Cocaine Screen Neg (NEG) Urine Cannabinoids Screen Neg (NEG) Urine Ethyl Alcohol Neg (NEG) White Blood Count 12.2 x10^3/uL (4.0-11.0) Red Blood Count 3.97 x10^6/uL (3.50-5.40) Hemoglobin 10.5 g/dL (12.0-15.5) Hematocrit 31.4 % (36.0-47.0) Mean Corpuscular Volume 79 fL (79-100) Mean Corpuscular Hemoglobin 26 pg (25-35) Mean Corpuscular Hemoglobin Concent 33 g/dL (31-37) Red Cell Distribution Width 17.6 % (11.5-14.5) Platelet Count 311 x10^3/uL (140-400) Neutrophils (%) (Auto) 85 % (31-73) Lymphocytes (%) (Auto) 10 % (24-48) Monocytes (%) (Auto) 5 % (0-9) Eosinophils (%) (Auto) 0 % (0-3) Basophils (%) (Auto) 0 % (0-3) Neutrophils # (Auto) 10.4 x10^3uL (1.8-7.7) Lymphocytes # (Auto) 1.2 x10^3/uL (1.0-4.8) Monocytes # (Auto) 0.6 x10^3/uL (0.0-1.1) Eosinophils # (Auto) 0.0 x10^3/uL (0.0-0.7) Basophils # (Auto) 0.0 x10^3/uL (0.0-0.2) Sodium Level 141 mmol/L (136-145) Potassium Level 3.6 mmol/L (3.5-5.1) Chloride Level 106 mmol/L (98-107) Carbon Dioxide Level 20 mmol/L (21-32) Anion Gap 15 (6-14) Blood Urea Nitrogen 9 mg/dL (7-20) Creatinine 0.9 mg/dL (0.6-1.0) Estimated GFR (Cockcroft-Gault) 81.9 Glucose Level 119 mg/dL (70-99) Calcium Level 9.3 mg/dL (8.5-10.1) Microbiology 07/12/18 Urine Culture - Final, Complete 07/12/18 Urine Culture Result 1 (SHEBA) - Final, Complete Medications Current Medications Sodium Chloride 1,000 ml @ 1,000 mls/hr 1X ONCE IV Last administered on at 09:37; Start 07/12/18 at 09:15; Stop 07/12/18 at 10:14; Status DC Ondansetron HCl (Zofran) 4 mg 1X ONCE IV Last administered on 07/12/18at 09:43 ; Start 07/12/18 at 09:15; Stop 07/12/18 at 09:16; Status DC Dicyclomine HCl (Bentyl) 20 mg 1X ONCE IM Last administered on 07/12/18at 10:44 ; Start 07/12/18 at 09:15; Stop 07/12/18 at 09:16; Status DC Iohexol (Omnipaque 300 Mg/ml) 75 ml 1X ONCE IV Last administered on 07/12/18at 10:30; Start 07/12/18 at 10:30; Stop 07/12/18 at 10:32; Status DC Info (CONTRAST GIVEN -- Rx MONITORING) 1 each PRN DAILY PRN MC SEE COMMENTS; Start 07/12/18 at 10:45; Stop 07/14/18 at 10:44; Status DC Metronidazole 100 ml @ 100 mls/hr 1X ONCE IV Last administered on 07/12/18at 13:10; Start 07/12/18 at 12:30; Stop 07/12/18 at 13:29; Status DC Ciprofloxacin/ Dextrose 200 ml @ 200 mls/hr Q12HR IV Last administered on 07/12at 23:00; Start 07/12/18 at 13:30; Stop 07/13/18 at 08:57; Status DC Morphine Sulfate (Morphine Sulfate) 2 mg PRN Q2HR PRN IV SEVERE PAIN Last administered on 07/13/18at 16:10; Start 07/12/18 at 16:00; Stop 07/17/18 at 09:36 ; Status DC Atorvastatin Calcium (Lipitor) 20 mg HS PO Last administered on 07/17/18at 21:16 ; Start 07/12/18 at 21:00 Cetirizine HCl (ZyrTEC) 10 mg DAILY PO Last administered on 07/18/18at 09:36; Start 07/12/18 at 16:00 Lubiprostone (Amitiza) 8 mcg BID PO Last administered on 07/13/18at 08:23; Start 07/12/18 at 21:00; Stop 07/13/18 at 08:49; Status DC Lisinopril (Prinivil) 10 mg DAILY PO Last administered on 07/18/18at 09:40; Start 07/13/18 at 09:00 Oxcarbazepine (Trileptal) 300 mg BID PO Last administered on 07/13/18at 08:23; Start 07/12/18 at 21:00; Stop 07/13/18 at 11:19; Status DC Polyethylene Glycol (miraLAX PACKET) 17 gm BID PO Last administered on at 10:09; Start 07/12/18 at 21:00 Topiramate (Topamax) 100 mg BID PO Last administered on 07/18/18at 09:39; Start 07/12/18 at 21:00 Hydrochlorothiazide (Microzide) 12.5 mg DAILY PO Last administered on at 11:44; Start 07/13/18 at 09:00; Stop 07/16/18 at 11:39; Status DC Ketorolac Tromethamine (Toradol 30mg Vial) 30 mg PRN Q6HRS PRN IV MILD - MODERATE PAIN; Start 07/12/18 at 20:00; Stop 07/17/18 at 19:59; Status DC Lactobacillus Rhamnosus (Culturelle) 1 cap BID PO Last administered on 09:36; Start 07/13/18 at 09:00 Ciprofloxacin/ Dextrose 200 ml @ 200 mls/hr Q12H IV Last administered on at 10:49; Start 07/13/18 at 11:00; Stop 07/16/18 at 11:39; Status DC Metronidazole 100 ml @ 100 mls/hr Q8HRS IV Last administered on 07/16/18 06: 09; Start 07/13/18 at 09:00; Stop 07/16/18 at 11:39; Status DC Potassium Chloride (Klor-Con) 40 meq 1X ONCE PO Last administered on 09:26; Start 07/13/18 at 08:45; Stop 07/13/18 at 08:52; Status DC Potassium Chloride (Klor-Con) 40 meq DAILYWBKFT PO Last administered on 09:37; Start 07/14/18 at 08:00 Loperamide HCl (Imodium) 2 mg PRN Q15MIN PRN PO DIARRHEA Last administered on 09:40; Start 07/13/18 at 08:45 Ondansetron HCl (Zofran) 4 mg PRN Q6HRS PRN IV NAUSEA/VOMITING Last administered on 07/18/18 01:50; Start 07/13/18 at 08:45 Ondansetron HCl (Zofran Odt) 4 mg PRN Q6HRS PRN PO NAUSEA/VOMITING Last administered on 07/18/18 14:03; Start 07/13/18 at 08:45 Acetaminophen (Tylenol) 500 mg PRN Q6HRS PRN PO MILD PAIN / TEMP Last administered on 07/17/18 10:09; Start 07/13/18 at 08:45 Acetaminophen/ Hydrocodone Bitart (Lortab 5/325) 1 tab PRN Q4HRS PRN PO PAIN MODERATE TO SEVERE Last administered on 07/18/18 09:39; Start 07/13/18 at 08:45 Sodium Chloride 1,000 ml @ 100 mls/hr 1X ONCE IV Last administered on 9/16/ 18at 09:33; Start 07/13/18 at 09:00; Stop 07/13/18 at 18:59; Status DC Oxcarbazepine (Trileptal) 900 mg BID PO Last administered on 07/18/18at 09:39; Start 07/13/18 at 21:00 Bisacodyl (Dulcolax Tab) 10 mg 1X ONCE PO Last administered on 07/13/18at 17:07 ; Start 07/13/18 at 17:00; Stop 07/13/18 at 17:01; Status DC Polyethylene Glycol (miraLAX Powder BULK BOTTLE) 238 gm 1X ONCE PO Last administered on 07/13/18at 19:35; Start 07/13/18 at 19:00; Stop 07/13/18 at 19:01 ; Status DC Sodium Chloride (Normal Saline Flush) 3 ml QSHIFT PRN IV AFTER MEDS AND BLOOD DRAWS; Start 07/13/18 at 16:45 Sodium Chloride (Normal Saline Flush) 3 ml QSHIFT PRN IV AFTER MEDS AND BLOOD DRAWS; Start 07/13/18 at 16:45; Status UNV Benzocaine (Hurricaine One) 1 spray STK-MED ONCE .ROUTE ; Start 07/14/18 at 07: 58; Stop 07/14/18 at 07:59; Status DC Midazolam HCl (Versed) 5 mg STK-MED ONCE .ROUTE ; Start 07/14/18 at 07:59; Stop 07/14/18 at 08:00; Status DC Fentanyl Citrate (Fentanyl 2ml Vial) 100 mcg STK-MED ONCE .ROUTE ; Start at 07:59; Stop 07/14/18 at 08:00; Status DC Propofol 40 ml @ As Directed STK-MED ONCE IV ; Start 07/14/18 at 08:34; Stop at 08:35; Status DC Lidocaine HCl (Lidocaine Pf 2% Vial) 5 ml STK-MED ONCE .ROUTE ; Start 07/14/18 at 08:34; Stop 07/14/18 at 08:35; Status DC Cefazolin Sodium/ Dextrose 50 ml @ 100 mls/hr 1X PREOP PRN IV eligibility consultant to OR Last administered on 07/15/18at 09:40; Start 07/15/18 at 06:00; Stop 07/15/18 at 18:00; Status DC Metronidazole 100 ml @ 100 mls/hr 1X PREOP PRN IV eligibility consultant to OR; Start at 06:00; Stop 07/15/18 at 18:00; Status DC Fentanyl Citrate (Fentanyl 2ml Vial) 25 mcg PRN Q5MIN PRN IV MILD PAIN; Start 07/15/18 at 07:00; Stop 07/15/18 at 21:00; Status DC Fentanyl Citrate (Fentanyl 2ml Vial) 50 mcg PRN Q5MIN PRN IV MODERATE TO SEVERE PAIN Last administered on 07/15/18at 13:55; Start 07/15/18 at 07:00; Stop 07/15/18 at 21:00; Status DC Morphine Sulfate (Morphine Sulfate) 1 mg PRN Q10MIN PRN IV SEVERE PAIN; Start 07/15/18 at 07:00; Stop 07/15/18 at 21:00; Status DC Ringer's Solution 1,000 ml @ 30 mls/hr Q24H IV ; Start 07/15/18 at 07:00; Stop 07/15/18 at 18:59; Status DC Lidocaine HCl (Xylocaine-Mpf 1% 2ml Vial) 2 ml PRN 1X PRN ID IV START; Start at 07:00; Stop 07/15/18 at 21:00; Status DC Hydromorphone HCl (Dilaudid) 0.5 mg PRN Q10MIN PRN IV SEV PAIN, Second choice; Start 07/15/18 at 07:00; Stop 07/15/18 at 21:00; Status DC Prochlorperazine Edisylate (Compazine) 5 mg PACU PRN PRN IV NAUSEA, MRX1; Start 07/15/18 at 07:00; Stop 07/15/18 at 21:00; Status DC Epinephrine HCl (Adrenalin) 30 mg STK-MED ONCE .ROUTE ; Start 07/15/18 at 08:02 ; Stop 07/15/18 at 09:03; Status DC Bupivacaine HCl (Sensorcaine Mpf 0.25%) 30 ml STK-MED ONCE .ROUTE ; Start at 08:02; Stop 07/15/18 at 09:03; Status DC Sevoflurane (Ultane) 90 ml STK-MED ONCE IH ; Start 07/15/18 at 09:12; Stop 07/15 at 09:13; Status DC Midazolam HCl (Versed) 2 mg STK-MED ONCE .ROUTE ; Start 07/15/18 at 09:12; Stop 07/15/18 at 09:13; Status DC Fentanyl Citrate (Fentanyl 2ml Vial) 100 mcg STK-MED ONCE .ROUTE ; Start at 09:12; Stop 07/15/18 at 09:13; Status DC Glycopyrrolate (Robinul) 1 mg STK-MED ONCE .ROUTE ; Start 07/15/18 at 09:13; Stop 07/15/18 at 09:14; Status DC Neostigmine Methylsulfate (Neostigmine Methylsulfate) 5 mg STK-MED ONCE .ROUTE ; Start 07/15/18 at 09:13; Stop 07/15/18 at 09:14; Status DC Rocuronium [place] (Zemuron) 50 mg STK-MED ONCE .ROUTE ; Start 07/15/18 at 09:13 ; Stop 07/15/18 at 09:14; Status DC Dexamethasone Sodium Phosphate (Decadron) 20 mg STK-MED ONCE .ROUTE ; Start at 09:13; Stop 07/15/18 at 09:14; Status DC Ketorolac Tromethamine (Toradol For Or Only) 30 mg STK-MED ONCE INJ ; Start at 09:13; Stop 07/15/18 at 09:14; Status DC Propofol 20 ml @ As Directed STK-MED ONCE IV ; Start 07/15/18 at 09:13; Stop at 09:14; Status DC Ondansetron HCl (Zofran) 4 mg STK-MED ONCE .ROUTE ; Start 07/15/18 at 09:13; Stop 07/15/18 at 09:14; Status DC Phenylephrine HCl (PHENYLEPHRINE in 0.9% NACL PF) 1 mg STK-MED ONCE IV ; Start 07/15/18 at 09:53; Stop 07/15/18 at 09:54; Status DC Fentanyl Citrate (Fentanyl 2ml Vial) 100 mcg STK-MED ONCE .ROUTE ; Start at 10:05; Stop 07/15/18 at 10:06; Status DC Esmolol HCl (Brevibloc) 100 mg STK-MED ONCE IV ; Start 07/15/18 at 10:09; Stop 07/15/18 at 10:10; Status DC Rocuronium [place] (Zemuron) 50 mg STK-MED ONCE .ROUTE ; Start 07/15/18 at 10:10 ; Stop 07/15/18 at 10:11; Status DC Ephedrine Sulfate (ePHEDrine PF IN SALINE SYRINGE) 50 mg STK-MED ONCE IV ; Start 07/15/18 at 11:02; Stop 07/15/18 at 11:03; Status DC Fentanyl Citrate (Fentanyl 2ml Vial) 100 mcg STK-MED ONCE .ROUTE ; Start at 11:09; Stop 07/15/18 at 11:10; Status DC Fentanyl Citrate (Fentanyl 2ml Vial) 100 mcg STK-MED ONCE .ROUTE ; Start at 12:51; Stop 07/15/18 at 12:52; Status DC Morphine Sulfate 30 ml @ 0 mls/hr CONT PRN PRN IV PER PROTOCOL Last administered on 07/16/18at 19:50; Start 07/15/18 at 13:30; Stop 07/17/18 at 09:43 ; Status DC Fentanyl Citrate (Fentanyl 2ml Vial) 100 mcg STK-MED ONCE .ROUTE ; Start at 13:34; Stop 07/15/18 at 13:35; Status DC Throat Lozenges (Chloraseptic) 1 spray PRN Q3HRS PRN PO SORE THROAT Last administered on 07/15/18at 21:55; Start 07/15/18 at 21:45 Sodium Chloride 1,000 ml @ 1,000 mls/hr 1X ONCE IV Last administered on at 03:45; Start 07/16/18 at 03:45; Stop 07/16/18 at 04:44; Status DC Sodium Chloride 1,000 ml @ 125 mls/hr 1X ONCE IV ; Start 07/16/18 at 04:45; Stop 07/16/18 at 12:44; Status Cancel Sodium Chloride 1,000 ml @ 125 mls/hr Q8H IV Last administered on 07/18/18at 01 :50; Start 07/16/18 at 05:00 Enoxaparin Sodium (Lovenox 40mg Syringe) 40 mg Q24H SQ Last administered on at 09:59; Start 07/16/18 at 10:00 Albuterol/ Ipratropium (Duoneb) 3 ml RTQID NEB Last administered on 07/18/18at 11:22; Start 07/16/18 at 12:00 Albuterol Sulfate (Ventolin Neb Soln) 2.5 mg PRN Q4HRS PRN NEB SHORTNESS OF BREATH Last administered on 07/18/18at 05:10; Start 07/16/18 at 11:45 Al Hydroxide/Mg Hydroxide (Mylanta Plus Xs) 30 ml PRN Q2HR PRN PO HEARTBURN / GAS; Start 07/16/18 at 22:00; Stop 07/16/18 at 22:00; Status DC Famotidine (Pepcid) 20 mg QHS PO ; Start 07/17/18 at 21:00; Stop 07/17/18 at 21: 00; Status DC Famotidine (Pepcid) 20 mg 1X ONCE PO ; Start 07/16/18 at 22:00; Stop 07/16/18 at 22:00; Status DC Famotidine (Pepcid Vial) 20 mg QHS IVP Last administered on 07/17/18at 21:16; Start 07/17/18 at 21:00; Stop 07/18/18 at 08:21; Status DC Famotidine (Pepcid Vial) 20 mg 1X ONCE IVP Last administered on 07/16/18at 22: 38; Start 07/16/18 at 22:30; Stop 07/16/18 at 22:31; Status DC Iron Sucrose 200 mg/Sodium Chloride 110 ml @ 55 mls/hr DAILY IV Last administered on 07/18/18at 09:26; Start 07/17/18 at 12:30; Stop 07/21/18 at 12:29 Calcium Carbonate/ Glycine (Tums) 500 mg PRN AFTMEALHC PRN PO INDIGESTION Last administered on 07/18/18at 09:31; Start 07/17/18 at 21:15 Iohexol (Omnipaque 300 Mg/ml) 75 ml 1X ONCE IV Last administered on 07/18/18at 08:15; Start 07/18/18 at 08:15; Stop 07/18/18 at 08:16; Status DC Info (CONTRAST GIVEN -- Rx MONITORING) 1 each PRN DAILY PRN MC SEE COMMENTS; Start 07/18/18 at 08:15; Stop 07/20/18 at 08:14 Famotidine (Pepcid Vial) 20 mg BID IVP Last administered on 07/18/18at 09:00; Start 07/18/18 at 09:00 Multi-Ingredient Mouthwash/Gargle (Gi Cocktail) 20 ml PRN QID PRN PO CHEST PAIN Last administered on 07/18/18at 13:57; Start 07/18/18 at 12:00 Active Scripts Active Reported Advair 250-50 Diskus (Fluticasone/Salmeterol) 1 Each Disk.w.dev 1 Puff IH BID Proair Hfa Inhaler (Albuterol Sulfate) 8.5 Gm Hfa.aer.ad 1 Puff INH PRN Q6HRS PRN Amitiza (Lubiprostone) 8 Mcg Capsule 1 Cap PO BID Miralax (Polyethylene Glycol 3350) 17 Gm Powd.pack 1 Packet PO BID Zyrtec (Cetirizine Hcl) 10 Mg Tablet 1 Tab PO DAILY Atorvastatin Calcium 20 Mg Tablet 20 Mg PO HS Topiramate 100 Mg Tablet 1 Tab PO BID Oxcarbazepine 300 Mg Tablet 1 Tab PO BID Lisinopril-Hctz 10-12.5 Mg Tab (Lisinopril/Hydrochlorothiazide) 1 Each Tablet 1 Tab PO DAILY Vitals/I & O Vital Sign - Last 24 Hours 07/17/18 07/17/18 07/17/18 07/17/18 15:00 15:23 18:11 19:20 Temp 98.1 98.9 98.1 98.9 Pulse 107 93 Resp 16 18 B/P (MAP) 120/78 (92) 123/85 (98) Pulse Ox 99 95 96 98 O2 Delivery Room Air Nasal Cannula Nasal Cannula Nasal Cannula O2 Flow Rate 2.0 2.0 2.0 07/17/18 07/17/18 07/17/18 07/17/18 20:00 21:19 22:19 23:07 Temp 98.5 98.5 Pulse 99 Resp 20 20 20 B/P (MAP) 116/72 (87) Pulse Ox 98 95 O2 Delivery Room Air Nasal Cannula Nasal Cannula O2 Flow Rate 2.0 2.0 2.0 07/17/18 07/18/18 07/18/18 07/18/18 23:22 03:14 05:16 07:00 Temp 98.1 97.9 98.1 97.9 Pulse 91 92 Resp 18 16 B/P (MAP) 126/82 (97) 126/82 (97) Pulse Ox 98 98 98 98 O2 Delivery Nasal Cannula Nasal Cannula Nasal Cannula Nasal Cannula O2 Flow Rate 2.0 2.0 2.0 2.0 07/18/18 07/18/18 07/18/18 07/18/18 07:01 09:39 09:40 10:45 Pulse 92 B/P (MAP) 126/82 Pulse Ox 93 93 97 O2 Delivery Nasal Cannula Room Air Room Air O2 Flow Rate 2.0 07/18/18 07/18/18 11:00 11:22 Temp 98.6 98.6 Pulse 87 Resp 16 B/P (MAP) 147/90 (109) Pulse Ox 98 97 O2 Delivery Room Air Room Air Intake and Output 07/17/18 07/17/18 07/18/18 15:00 23:00 07:00 Intake Total 50 ml 30 ml Output Total 1200 ml 30 ml Balance -1150 ml 0 ml KAREN JORDAN MD Jul 18, 2018 14:33
[2018-07-18 15:00] VITALS: BP 130/83
--- NOTE | 2018-07-18 16:05 | PDOC ---
Subjective: Subjective: Seen earlier today. Taking sips of water, pain managed. Says liquid stools. Wants to eat, wants to go home. Objective: Objective: Reviewed other notes - IV Pepcid was added for reflux. Vital Signs: Vital Signs Date Time Temp Pulse Resp B/P (MAP) Pulse Ox O2 Delivery O2 Flow Rate FiO2 07/18/18 15:45 97 Room Air 07/18/18 11:00 98.6 87 16 147/90 (109) 98.6 07/18/18 07:01 2.0 Labs: Laboratory Tests Test 07/18/18 03:20 07/18/18 04:05 Urine Opiates Screen Pos Urine Methadone Screen Neg Urine Barbiturates Neg Urine Phencyclidine Screen Neg Urine Amphetamine/Methamphetamine Neg Urine Benzodiazepines Screen Neg Urine Cocaine Screen Neg Urine Cannabinoids Screen Neg Urine Ethyl Alcohol Neg White Blood Count 12.2 x10^3/uL Red Blood Count 3.97 x10^6/uL Hemoglobin 10.5 g/dL Hematocrit 31.4 % Mean Corpuscular Volume 79 fL Mean Corpuscular Hemoglobin 26 pg Mean Corpuscular Hemoglobin Concent 33 g/dL Red Cell Distribution Width 17.6 % Platelet Count 311 x10^3/uL Neutrophils (%) (Auto) 85 % Lymphocytes (%) (Auto) 10 % Monocytes (%) (Auto) 5 % Eosinophils (%) (Auto) 0 % Basophils (%) (Auto) 0 % Neutrophils # (Auto) 10.4 x10^3uL Lymphocytes # (Auto) 1.2 x10^3/uL Monocytes # (Auto) 0.6 x10^3/uL Eosinophils # (Auto) 0.0 x10^3/uL Basophils # (Auto) 0.0 x10^3/uL Sodium Level 141 mmol/L Potassium Level 3.6 mmol/L Chloride Level 106 mmol/L Carbon Dioxide Level 20 mmol/L Anion Gap 15 Blood Urea Nitrogen 9 mg/dL Creatinine 0.9 mg/dL Estimated GFR (Cockcroft-Gault) 81.9 Glucose Level 119 mg/dL Calcium Level 9.3 mg/dL PE: GEN: NAD, up to chair LUNGS: CTAB HEART: RRR ABD: soft NEURO/PSYCH: A & O 3 A/P: Cecal adenocarcinoma s/p right colon resection H. pylori gastritis Reflux -- Diet per surgery. Will add H. pylori treatment when taking PO. ARVIND HUERTA Jul 18, 2018 16:05
--- NOTE | 2018-07-18 17:49 | EEG ---
DATE OF SERVICE: 07/17/2018 EEG NUMBER: [id number]. OBJECTIVE: This is a 47-year-old female patient with history of seizure. EEG was requested to evaluate seizure activity. METHODS: Twenty electrodes were applied according to the international 10-20 electrode placement system. EKG monitoring, hyperventilation, intermittent photic stimulation, monopolar and bipolar montages were routinely utilized. The record was obtained on a digital system with video monitoring. MEDICATIONS: Trileptal and Topamax. FINDINGS: 1. Background: The patient was recorded in the awake and drowsy states. No sleep state was recorded. The overall background amplitude is 5-15 microvolts. A posterior dominant rhythm of 8-9 Hz is observed. 2. Abnormalities: No specific epileptiform discharge or electrographic seizure is seen. No focal or diffuse slowing. 3. Activation: Hyperventilation was performed with fair efforts and normal response. Intermittent photic stimulation was performed with photic driving. No specific epileptiform discharge or electrographic seizure induced by hyperventilation or intermittent photic stimulation. IMPRESSION: This EEG is a normal study for the awake and drowsy states. No sleep state was recorded. No focal, lateralizing, specific epileptiform discharge or electrographic seizure is seen. BERNARD ARREAGA MD DR: RANDY/mariya JOB#: [id number] / [id number] FREDRICK
--- NOTE | 2018-07-18 18:22 | PDOC ---
PROGRESS NOTES Assessment Assessment Confusional episode. Seizure? UTI. Cecal adenocarcinoma. Abdominal pain. Leukocytosis. Cholelithiasis. Anemia. HLD. Obesity. RECOMMENDATIONS/PLAN: Continue Trileptal. Continue Topamax 100 mg bid. Continue Lipitor HS. Treat medical diseases. Consulted GI. EEG on 07/17/18: Normal study. HISTORY OF THE PRESENT ILLNESS: 47-y-old AA female patient with above medical diseases has been having symptoms of abdominal pain, vomiting and diarrhea for admission. She had Hx of seizure many years ago, but was seizure free for several years. She had episodes of confusions and suspected possible seizures, so Neurology was requested for consultation. No shaking, jerking or magui movements. Past Medical History Cardiovascular: HTN, Hyperlipidemia Pulmonary: Asthma CENTRAL NERVOUS SYSTEM: Seizure Past Surgical History Family History Diabetes Social History Smoking <1 pack per day ALCOHOL: none Drugs: None Lives: with Family ALLERGY: Reviewed. MEDICATIONS: Refer to MAR REVIEW OF SYSTEMS: Constitutional: Obesity. Head: No traumatic brain or head injury. Skin: No edema, or rash. Ear: No infection. Eyes: No vision loss or color blindness. Nose: No bleeding or purulent discharges. Hearing: No hearing decrease. Neck: No injury. Breast: No history of cancer, masses,or discharges. Cardiac: HTN, HLD. Pulmonary: No COPD. GI: Possible malignant colonic mass this time. Urinary/genital: UTI. Endocrinologic: Obesity. Skeletomuscular: No muscular atrophy, deformity. Neurological: see HP. Psychiatric: Substance use/abuse. Otherwise, not [id number] review of systems. PHYSICAL EXAMINATION: General appearance is in subacute distress. HEENT: Normocephalic and nontraumatic. Eyes, nose, ears, and throat are unremarkable. Neck is supple. No lymphadenopathy. No bruits are heard over the carotid artery. No crepitus. Cardiovascular: S1, S2, regular rate and rhythm. Pulmonary: Clear to auscultation bilaterally. Abdomen: Bowel sounds are positive. Extremities: No rash, lesions, or edema. No restriction of range of motion NEUROLOGICAL EXAMINATION: Alert Oriented to time, place and person. PERRL. EOMI. CN: no focal findings. Muscle tone: within normal. Muscle strength: 5 DTR: 2 Plantar reflex: Flexor response bilaterally Gait: not examined in bed. Sensory exam: no abnormal findings. No cerebellar signs elicited. F-T-N test accurate. Objective Objective Vital Signs Date Time Temp Pulse Resp B/P (MAP) Pulse Ox O2 Delivery O2 Flow Rate FiO2 07/18/18 16:30 97 Room Air 07/18/18 15:00 97.8 96 18 130/83 (99) 2.0 97.8 Intake and Output 07/18/18 07:00 Intake Total 80 ml Output Total 1230 ml Balance -1150 ml Intake Oral 50 ml IV Total 30 ml Output Urine Total 1200 ml Emesis 30 ml # Voids 5 # Bowel Movements 3 Vitals Signs Vitals VS - Last 72 Hours, by Label Date Time Temp Pulse Resp B/P (MAP) Pulse Ox O2 Delivery O2 Flow Rate FiO2 07/18/18 16:30 97 Room Air 07/18/18 15:45 97 Room Air 07/18/18 15:00 97.8 96 18 130/83 (99) 95 Nasal Cannula 2.0 97.8 07/18/18 11:22 97 Room Air 07/18/18 11:00 98.6 87 16 147/90 (109) 98 Room Air 98.6 07/18/18 10:45 97 Room Air 07/18/18 09:40 92 126/82 07/18/18 09:39 93 Room Air 07/18/18 08:00 Room Air 2.0 07/18/18 07:01 93 Nasal Cannula 2.0 07/18/18 07:00 97.9 92 16 126/82 (97) 98 Nasal Cannula 2.0 97.9 07/18/18 05:16 98 Nasal Cannula 2.0 07/18/18 03:14 98.1 91 18 126/82 (97) 98 Nasal Cannula 2.0 98.1 07/17/18 23:22 98 Nasal Cannula 2.0 07/17/18 23:07 98.5 99 20 116/72 (87) 95 Nasal Cannula 2.0 98.5 07/17/18 22:19 20 2.0 07/17/18 21:19 20 98 Nasal Cannula 2.0 07/17/18 20:00 Room Air 07/17/18 19:20 98.9 93 18 123/85 (98) 98 Nasal Cannula 2.0 98.9 07/17/18 18:11 96 Nasal Cannula 2.0 9/20/18 15:23 95 Nasal Cannula 2.0 07/17/18 15:00 98.1 107 16 120/78 (92) 99 Room Air 98.1 07/17/18 11:11 95 Nasal Cannula 2.0 07/17/18 10:10 106 123/81 07/17/18 08:00 Room Air 07/17/18 07:19 100 Room Air 07/17/18 07:00 98.8 106 16 123/81 (95) 98 Nasal Cannula 2.0 98.8 Laboratory Laboratory Laboratory Tests Test 07/18/18 03:20 07/18/18 04:05 Urine Opiates Screen Pos (NEG) Urine Methadone Screen Neg (NEG) Urine Barbiturates Neg (NEG) Urine Phencyclidine Screen Neg (NEG) Urine Amphetamine/Methamphetamine Neg (NEG) Urine Benzodiazepines Screen Neg (NEG) Urine Cocaine Screen Neg (NEG) Urine Cannabinoids Screen Neg (NEG) Urine Ethyl Alcohol Neg (NEG) White Blood Count 12.2 x10^3/uL (4.0-11.0) Red Blood Count 3.97 x10^6/uL (3.50-5.40) Hemoglobin 10.5 g/dL (12.0-15.5) Hematocrit 31.4 % (36.0-47.0) Mean Corpuscular Volume 79 fL (79-100) Mean Corpuscular Hemoglobin 26 pg (25-35) Mean Corpuscular Hemoglobin Concent 33 g/dL (31-37) Red Cell Distribution Width 17.6 % (11.5-14.5) Platelet Count 311 x10^3/uL (140-400) Neutrophils (%) (Auto) 85 % (31-73) Lymphocytes (%) (Auto) 10 % (24-48) Monocytes (%) (Auto) 5 % (0-9) Eosinophils (%) (Auto) 0 % (0-3) Basophils (%) (Auto) 0 % (0-3) Neutrophils # (Auto) 10.4 x10^3uL (1.8-7.7) Lymphocytes # (Auto) 1.2 x10^3/uL (1.0-4.8) Monocytes # (Auto) 0.6 x10^3/uL (0.0-1.1) Eosinophils # (Auto) 0.0 x10^3/uL (0.0-0.7) Basophils # (Auto) 0.0 x10^3/uL (0.0-0.2) Sodium Level 141 mmol/L (136-145) Potassium Level 3.6 mmol/L (3.5-5.1) Chloride Level 106 mmol/L (98-107) Carbon Dioxide Level 20 mmol/L (21-32) Anion Gap 15 (6-14) Blood Urea Nitrogen 9 mg/dL (7-20) Creatinine 0.9 mg/dL (0.6-1.0) Estimated GFR (Cockcroft-Gault) 81.9 Glucose Level 119 mg/dL (70-99) Calcium Level 9.3 mg/dL (8.5-10.1) Microbiology 07/12/18 Urine Culture - Final, Complete 07/12/18 Urine Culture Result 1 (SHEBA) - Final, Complete Medication Medications Current Medications Calcium Carbonate/ Glycine (Tums) 500 mg PRN AFTMEALHC PRN PO INDIGESTION Last administered on 07/18/18at 16:30; Start 07/17/18 at 21:15 Famotidine (Pepcid Vial) 20 mg BID IVP Last administered on 07/18/18at 09:00; Start 07/18/18 at 09:00 Famotidine (Pepcid Vial) 20 mg QHS IVP Last administered on 07/17/18at 21:16; Start 07/17/18 at 21:00; Stop 07/18/18 at 08:21; Status DC Famotidine (Pepcid) 20 mg QHS PO ; Start 07/17/18 at 21:00; Stop 07/17/18 at 21: 00; Status DC Info (CONTRAST GIVEN -- Rx MONITORING) 1 each PRN DAILY PRN MC SEE COMMENTS; Start 07/18/18 at 08:15; Stop 07/20/18 at 08:14 Iohexol (Omnipaque 300 Mg/ml) 75 ml 1X ONCE IV Last administered on 07/18/18at 08:15; Start 07/18/18 at 08:15; Stop 07/18/18 at 08:16; Status DC Multi-Ingredient Mouthwash/Gargle (Gi Cocktail) 20 ml PRN QID PRN PO CHEST PAIN Last administered on 07/18/18at 13:57; Start 07/18/18 at 12:00 Comment Review of Relevant I have reviewed the following items dawson (where applicable) has been applied. BERNARD ARREAGA MD Jul 18, 2018 18:22
[2018-07-18 19:00] VITALS: BP 140/88
[2018-07-18] MEDS: ATORVASTATIN CALCIUM 20 MG TABLET PO SCH (21:11)
[2018-07-18 23:00] VITALS: BP 127/80
[2018-07-19] MEDS: IV NORMAL SALINE 1000ML BAG 1,000 ML IV SCH ×3 (02:27→18:03)
[2018-07-19 03:00] VITALS: BP 135/86
[2018-07-19 05:08] LABS: BASO # 0.1 x10^3/uL (0.0-0.2); BASO % 1 % (0-3); EOS # 0.2 x10^3/uL (0.0-0.7); EOS % 2 % (0-3); HEMATOCRIT 29.7 % (36.0-47.0); HEMOGLOBIN 9.6 g/dL (12.0-15.5); LYMPH # 1.8 x10^3/uL (1.0-4.8); LYMPH % 15 % (24-48); MEAN CORPUSCULAR HEMOGLOBIN 26 pg (25-35); MEAN CORPUSCULAR HGB CONC 32 g/dL (31-37); MEAN CORPUSCULAR VOLUME 80 fL (79-100); MONO # 0.8 x10^3/uL (0.0-1.1); MONO % 6 % (0-9); NEUT # 9.1 x10^3uL (1.8-7.7); NEUT % 76 % (31-73); PLATELET COUNT 298 x10^3/uL (140-400); RED BLOOD COUNT 3.72 x10^6/uL (3.50-5.40); RED CELL DISTRIBUTION WIDTH 18.3 % (11.5-14.5); WHITE BLOOD COUNT 11.9 x10^3/uL (4.0-11.0)
[2018-07-19 05:57] LABS: CALCIUM 9.2 mg/dL (8.5-10.1); CREATININE 0.9 mg/dL (0.6-1.0); GFR 81.9
[2018-07-19 07:00] VITALS: BP 123/77
[2018-07-19] MEDS: IPRATRPIUM/ALBUTEROL 0.5/2.5MG 3 ML NEBU. NEB SCH ×4 (07:15→20:20)
--- NOTE | 2018-07-19 09:20 | PDOC ---
GI PROGRESS NOTES Date Date/Time DATE: 07/19/18 TIME: 09:13 Subjective Subjective feeling better- had + flatus NGT removed this AM Objective Vitals Vital Signs Date Time Temp Pulse Resp B/P (MAP) Pulse Ox O2 Delivery O2 Flow Rate FiO2 07/19/18 07:15 100 Nasal Cannula 2.0 07/19/18 07:00 97.4 89 16 123/77 (92) 99 97.4 07/19/18 03:00 98.6 89 14 135/86 (102) 96 Nasal Cannula 2.0 98.6 07/18/18 23:00 98.9 85 14 127/80 (96) 96 Nasal Cannula 2.0 98.9 07/18/18 20:00 Room Air 07/18/18 19:44 98 Room Air 07/18/18 19:00 98.6 99 14 140/88 (105) 100 Nasal Cannula 2.0 98.6 07/18/18 17:30 97 Room Air 07/18/18 16:30 97 Room Air 07/18/18 15:45 97 Room Air 07/18/18 15:00 97.8 96 18 130/83 (99) 95 Nasal Cannula 2.0 97.8 07/18/18 11:22 97 Room Air 07/18/18 11:00 98.6 87 16 147/90 (109) 98 Room Air 98.6 07/18/18 09:40 92 126/82 07/18/18 09:39 93 Room Air Labs Labs Laboratory Tests Test 07/19/18 04:05 White Blood Count 11.9 x10^3/uL (4.0-11.0) Red Blood Count 3.72 x10^6/uL (3.50-5.40) Hemoglobin 9.6 g/dL (12.0-15.5) Hematocrit 29.7 % (36.0-47.0) Mean Corpuscular Volume 80 fL (79-100) Mean Corpuscular Hemoglobin 26 pg (25-35) Mean Corpuscular Hemoglobin Concent 32 g/dL (31-37) Red Cell Distribution Width 18.3 % (11.5-14.5) Platelet Count 298 x10^3/uL (140-400) Neutrophils (%) (Auto) 76 % (31-73) Lymphocytes (%) (Auto) 15 % (24-48) Monocytes (%) (Auto) 6 % (0-9) Eosinophils (%) (Auto) 2 % (0-3) Basophils (%) (Auto) 1 % (0-3) Neutrophils # (Auto) 9.1 x10^3uL (1.8-7.7) Lymphocytes # (Auto) 1.8 x10^3/uL (1.0-4.8) Monocytes # (Auto) 0.8 x10^3/uL (0.0-1.1) Eosinophils # (Auto) 0.2 x10^3/uL (0.0-0.7) Basophils # (Auto) 0.1 x10^3/uL (0.0-0.2) Sodium Level 142 mmol/L (136-145) Potassium Level 4.0 mmol/L (3.5-5.1) Chloride Level 110 mmol/L (98-107) Carbon Dioxide Level 21 mmol/L (21-32) Anion Gap 11 (6-14) Blood Urea Nitrogen 11 mg/dL (7-20) Creatinine 0.9 mg/dL (0.6-1.0) Estimated GFR (Cockcroft-Gault) 81.9 Glucose Level 88 mg/dL (70-99) Calcium Level 9.2 mg/dL (8.5-10.1) Physical Exam Physical Exam alert chest- clear abd- obese binder in place- a few bowel sounds hear- decreased- very little tenderness Assessment Assessment Post op right hemicolectomy for cecal cancer + bx on pre-op colonoscopy- slowling improving- CT of chest and abd are negative for overt mets- waiting final path from surgical specimen to allow staging- heme-onc consulted H pylori + gastritis- will wait until after on diet- l then treat with standard regimen for 10 days- then breath test 1 month later to confirm eradication MITCHELL GONZALEZ MD Jul 19, 2018 09:20
--- NOTE | 2018-07-19 09:51 | PDOC ---
SURGICAL PROGRESS NOTE Subjective Patient resting comfortably of in bed awake and alert minimal discomfort has had liquid stools Vital Signs Vital Signs Date Time Temp Pulse Resp B/P (MAP) Pulse Ox O2 Delivery O2 Flow Rate FiO2 07/19/18 07:15 100 Nasal Cannula 2.0 07/19/18 07:00 97.4 89 16 123/77 (92) 97.4 I&O Intake and Output 07/19/18 07:00 Intake Total 0 ml Output Total 1 ml Balance -1 ml Intake Oral 0 ml Output Urine Total 1 ml # Voids 3 # Bowel Movements 4 PATIENT HAS A ADAM: No General: Alert, Oriented X3, Cooperative, mild distress Abdomen: Normal bowel sounds, Soft, Other (mild incisional tenderness wound clean dry and intact) Labs Laboratory Tests Test 07/18/18 03:20 07/18/18 04:05 07/19/18 04:05 Urine Opiates Screen Pos (NEG) Urine Methadone Screen Neg (NEG) Urine Barbiturates Neg (NEG) Urine Phencyclidine Screen Neg (NEG) Urine Amphetamine/Methamphetamine Neg (NEG) Urine Benzodiazepines Screen Neg (NEG) Urine Cocaine Screen Neg (NEG) Urine Cannabinoids Screen Neg (NEG) Urine Ethyl Alcohol Neg (NEG) White Blood Count 12.2 x10^3/uL (4.0-11.0) 11.9 x10^3/uL (4.0-11.0) Red Blood Count 3.97 x10^6/uL (3.50-5.40) 3.72 x10^6/uL (3.50-5.40) Hemoglobin 10.5 g/dL (12.0-15.5) 9.6 g/dL (12.0-15.5) Hematocrit 31.4 % (36.0-47.0) 29.7 % (36.0-47.0) Mean Corpuscular Volume 79 fL (79-100) 80 fL (79-100) Mean Corpuscular Hemoglobin 26 pg (25-35) 26 pg (25-35) Mean Corpuscular Hemoglobin Concent 33 g/dL (31-37) 32 g/dL (31-37) Red Cell Distribution Width 17.6 % (11.5-14.5) 18.3 % (11.5-14.5) Platelet Count 311 x10^3/uL (140-400) 298 x10^3/uL (140-400) Neutrophils (%) (Auto) 85 % (31-73) 76 % (31-73) Lymphocytes (%) (Auto) 10 % (24-48) 15 % (24-48) Monocytes (%) (Auto) 5 % (0-9) 6 % (0-9) Eosinophils (%) (Auto) 0 % (0-3) 2 % (0-3) Basophils (%) (Auto) 0 % (0-3) 1 % (0-3) Neutrophils # (Auto) 10.4 x10^3uL (1.8-7.7) 9.1 x10^3uL (1.8-7.7) Lymphocytes # (Auto) 1.2 x10^3/uL (1.0-4.8) 1.8 x10^3/uL (1.0-4.8) Monocytes # (Auto) 0.6 x10^3/uL (0.0-1.1) 0.8 x10^3/uL (0.0-1.1) Eosinophils # (Auto) 0.0 x10^3/uL (0.0-0.7) 0.2 x10^3/uL (0.0-0.7) Basophils # (Auto) 0.0 x10^3/uL (0.0-0.2) 0.1 x10^3/uL (0.0-0.2) Sodium Level 141 mmol/L (136-145) 142 mmol/L (136-145) Potassium Level 3.6 mmol/L (3.5-5.1) 4.0 mmol/L (3.5-5.1) Chloride Level 106 mmol/L (98-107) 110 mmol/L (98-107) Carbon Dioxide Level 20 mmol/L (21-32) 21 mmol/L (21-32) Anion Gap 15 (6-14) 11 (6-14) Blood Urea Nitrogen 9 mg/dL (7-20) 11 mg/dL (7-20) Creatinine 0.9 mg/dL (0.6-1.0) 0.9 mg/dL (0.6-1.0) Estimated GFR (Cockcroft-Gault) 81.9 81.9 Glucose Level 119 mg/dL (70-99) 88 mg/dL (70-99) Calcium Level 9.3 mg/dL (8.5-10.1) 9.2 mg/dL (8.5-10.1) Laboratory Tests Test 07/19/18 04:05 White Blood Count 11.9 x10^3/uL (4.0-11.0) Red Blood Count 3.72 x10^6/uL (3.50-5.40) Hemoglobin 9.6 g/dL (12.0-15.5) Hematocrit 29.7 % (36.0-47.0) Mean Corpuscular Volume 80 fL (79-100) Mean Corpuscular Hemoglobin 26 pg (25-35) Mean Corpuscular Hemoglobin Concent 32 g/dL (31-37) Red Cell Distribution Width 18.3 % (11.5-14.5) Platelet Count 298 x10^3/uL (140-400) Neutrophils (%) (Auto) 76 % (31-73) Lymphocytes (%) (Auto) 15 % (24-48) Monocytes (%) (Auto) 6 % (0-9) Eosinophils (%) (Auto) 2 % (0-3) Basophils (%) (Auto) 1 % (0-3) Neutrophils # (Auto) 9.1 x10^3uL (1.8-7.7) Lymphocytes # (Auto) 1.8 x10^3/uL (1.0-4.8) Monocytes # (Auto) 0.8 x10^3/uL (0.0-1.1) Eosinophils # (Auto) 0.2 x10^3/uL (0.0-0.7) Basophils # (Auto) 0.1 x10^3/uL (0.0-0.2) Sodium Level 142 mmol/L (136-145) Potassium Level 4.0 mmol/L (3.5-5.1) Chloride Level 110 mmol/L (98-107) Carbon Dioxide Level 21 mmol/L (21-32) Anion Gap 11 (6-14) Blood Urea Nitrogen 11 mg/dL (7-20) Creatinine 0.9 mg/dL (0.6-1.0) Estimated GFR (Cockcroft-Gault) 81.9 Glucose Level 88 mg/dL (70-99) Calcium Level 9.2 mg/dL (8.5-10.1) Problem List Problems Medical Problems: (1) Abdominal pain Status: Acute (2) Bandemia Status: Acute (3) Leukocytosis Status: Acute (4) Nausea vomiting and diarrhea Status: Acute (5) UTI (urinary tract infection) Status: Acute Assessment/Plan That is post right colectomy we'll advance diet to clear liquids Continue supportive care RAJAT HAMILTON MD Jul 19, 2018 09:51
[2018-07-19] MEDS: IRON SUCROSE COMPLEX 200 MG in IV NORMAL SALINE 100ML 100 ML IV SCH (09:53)
[2018-07-19] MEDS: FAMOTIDINE 20 MG/2 ML VIAL IVP SCH ×2 (09:54→21:42)
[2018-07-19] MEDS: POLYETHYLENE GLYCOL 3350 17 GM PACKET. PO SCH ×2 (09:54→21:00)
[2018-07-19] MEDS: LACTOBACILLUS RHAMNOSUS GG 1 CAPSULE. PO SCH ×2 (09:55→21:42)
[2018-07-19] MEDS: POTASSIUM CHLORIDE 20 MEQ TABLET.ER. PO SCH (09:55)
[2018-07-19] MEDS: TOPIRAMATE 25 MG TABLET. PO SCH ×2 (09:56→21:43)
[2018-07-19] MEDS: CETIRIZINE HCL 10 MG TABLET. PO SCH (09:56)
[2018-07-19] MEDS: LISINOPRIL 10 MG TABLET PO SCH (10:04)
[2018-07-19 11:00] VITALS: BP 116/69
--- NOTE | 2018-07-19 13:13 | PDOC ---
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 Nonobstructing left intrarenal calculi. Enlarged fibroid uterus. Probable renal cysts. asthma HTN morbid obesity h/o seizure AMS at hosp, with [employer] likely gastric bx + h pylori plan: fu wiht sx,off [employer] , ice chips ivf dc hctz, monitor bp, lisinopril for now dvt ppx add duoneb, albuterol prn cont seizure meds, neuro consulted for AMS dc abx onco consulted, garsia CT for staging, no obvious mets on image? h pylori treatment defer to GI talked to pt about the path and h pylori, however, pt seems has problem to understand. She doesnot remember that some docs coming to see her already, and not remember i told her 2 times she has colon Ca clear liquid as per sx dc on Saturday? History of Present Illness History of Present Illness Out having surgery for colon mass which is a new diagnosis- dx after EGD colonoscopy this admission CAT scan: 1. Mural thickening involving the colon in the ileocecal valve region raising the possibility of colonic malignancy. An inflammatory process cannot be excluded. There is mild associated dilatation of the distal small bowel and mild mesenteric adenopathy at this level. 2. Small amount of free fluid in the pelvis. 3. Cholelithiasis. 4. Nonobstructing left intrarenal calculi. 5. Enlarged fibroid uterus. 6. Probable renal cysts. has 2 times BM 07/17 as per pt very confused 07/16 night, [employer] stopped. pain is ok pt has some dementia or cognitive impairement, no remember what i told her daily i have been seeing her daily >3ds, she asked me who i am every time when i saw her Vitals Vitals Vital Signs Date Time Temp Pulse Resp B/P (MAP) Pulse Ox O2 Delivery O2 Flow Rate FiO2 07/19/18 11:00 98.3 90 16 116/69 (85) 97 Room Air 98.3 07/19/18 07:15 2.0 Physical Exam General: Alert, Oriented X3, Cooperative, mild distress Heart: Regular rate, Normal S1, Normal S2, No murmurs Lungs: Clear Abdomen: Normal bowel sounds, Soft, Other (mild incisional tenderness wound clean dry and intact) Extremities: No clubbing, No cyanosis Skin: No rashes, No breakdown Labs LABS Laboratory Tests Test 07/19/18 04:05 White Blood Count 11.9 x10^3/uL (4.0-11.0) Red Blood Count 3.72 x10^6/uL (3.50-5.40) Hemoglobin 9.6 g/dL (12.0-15.5) Hematocrit 29.7 % (36.0-47.0) Mean Corpuscular Volume 80 fL (79-100) Mean Corpuscular Hemoglobin 26 pg (25-35) Mean Corpuscular Hemoglobin Concent 32 g/dL (31-37) Red Cell Distribution Width 18.3 % (11.5-14.5) Platelet Count 298 x10^3/uL (140-400) Neutrophils (%) (Auto) 76 % (31-73) Lymphocytes (%) (Auto) 15 % (24-48) Monocytes (%) (Auto) 6 % (0-9) Eosinophils (%) (Auto) 2 % (0-3) Basophils (%) (Auto) 1 % (0-3) Neutrophils # (Auto) 9.1 x10^3uL (1.8-7.7) Lymphocytes # (Auto) 1.8 x10^3/uL (1.0-4.8) Monocytes # (Auto) 0.8 x10^3/uL (0.0-1.1) Eosinophils # (Auto) 0.2 x10^3/uL (0.0-0.7) Basophils # (Auto) 0.1 x10^3/uL (0.0-0.2) Sodium Level 142 mmol/L (136-145) Potassium Level 4.0 mmol/L (3.5-5.1) Chloride Level 110 mmol/L (98-107) Carbon Dioxide Level 21 mmol/L (21-32) Anion Gap 11 (6-14) Blood Urea Nitrogen 11 mg/dL (7-20) Creatinine 0.9 mg/dL (0.6-1.0) Estimated GFR (Cockcroft-Gault) 81.9 Glucose Level 88 mg/dL (70-99) Calcium Level 9.2 mg/dL (8.5-10.1) Assessment and Plan Assessmemt and Plan Problems Medical Problems: (1) Abdominal pain Status: Acute (2) Bandemia Status: Acute (3) Leukocytosis Status: Acute (4) Nausea vomiting and diarrhea Status: Acute (5) UTI (urinary tract infection) Status: Acute Comment Review of Relevant I have reviewed the following items dawson (where applicable) has been applied. Labs Laboratory Tests Test 07/18/18 03:20 07/18/18 04:05 07/19/18 04:05 Urine Opiates Screen Pos (NEG) Urine Methadone Screen Neg (NEG) Urine Barbiturates Neg (NEG) Urine Phencyclidine Screen Neg (NEG) Urine Amphetamine/Methamphetamine Neg (NEG) Urine Benzodiazepines Screen Neg (NEG) Urine Cocaine Screen Neg (NEG) Urine Cannabinoids Screen Neg (NEG) Urine Ethyl Alcohol Neg (NEG) White Blood Count 12.2 x10^3/uL (4.0-11.0) 11.9 x10^3/uL (4.0-11.0) Red Blood Count 3.97 x10^6/uL (3.50-5.40) 3.72 x10^6/uL (3.50-5.40) Hemoglobin 10.5 g/dL (12.0-15.5) 9.6 g/dL (12.0-15.5) Hematocrit 31.4 % (36.0-47.0) 29.7 % (36.0-47.0) Mean Corpuscular Volume 79 fL (79-100) 80 fL (79-100) Mean Corpuscular Hemoglobin 26 pg (25-35) 26 pg (25-35) Mean Corpuscular Hemoglobin Concent 33 g/dL (31-37) 32 g/dL (31-37) Red Cell Distribution Width 17.6 % (11.5-14.5) 18.3 % (11.5-14.5) Platelet Count 311 x10^3/uL (140-400) 298 x10^3/uL (140-400) Neutrophils (%) (Auto) 85 % (31-73) 76 % (31-73) Lymphocytes (%) (Auto) 10 % (24-48) 15 % (24-48) Monocytes (%) (Auto) 5 % (0-9) 6 % (0-9) Eosinophils (%) (Auto) 0 % (0-3) 2 % (0-3) Basophils (%) (Auto) 0 % (0-3) 1 % (0-3) Neutrophils # (Auto) 10.4 x10^3uL (1.8-7.7) 9.1 x10^3uL (1.8-7.7) Lymphocytes # (Auto) 1.2 x10^3/uL (1.0-4.8) 1.8 x10^3/uL (1.0-4.8) Monocytes # (Auto) 0.6 x10^3/uL (0.0-1.1) 0.8 x10^3/uL (0.0-1.1) Eosinophils # (Auto) 0.0 x10^3/uL (0.0-0.7) 0.2 x10^3/uL (0.0-0.7) Basophils # (Auto) 0.0 x10^3/uL (0.0-0.2) 0.1 x10^3/uL (0.0-0.2) Sodium Level 141 mmol/L (136-145) 142 mmol/L (136-145) Potassium Level 3.6 mmol/L (3.5-5.1) 4.0 mmol/L (3.5-5.1) Chloride Level 106 mmol/L (98-107) 110 mmol/L (98-107) Carbon Dioxide Level 20 mmol/L (21-32) 21 mmol/L (21-32) Anion Gap 15 (6-14) 11 (6-14) Blood Urea Nitrogen 9 mg/dL (7-20) 11 mg/dL (7-20) Creatinine 0.9 mg/dL (0.6-1.0) 0.9 mg/dL (0.6-1.0) Estimated GFR (Cockcroft-Gault) 81.9 81.9 Glucose Level 119 mg/dL (70-99) 88 mg/dL (70-99) Calcium Level 9.3 mg/dL (8.5-10.1) 9.2 mg/dL (8.5-10.1) Laboratory Tests Test 07/19/18 04:05 White Blood Count 11.9 x10^3/uL (4.0-11.0) Red Blood Count 3.72 x10^6/uL (3.50-5.40) Hemoglobin 9.6 g/dL (12.0-15.5) Hematocrit 29.7 % (36.0-47.0) Mean Corpuscular Volume 80 fL (79-100) Mean Corpuscular Hemoglobin 26 pg (25-35) Mean Corpuscular Hemoglobin Concent 32 g/dL (31-37) Red Cell Distribution Width 18.3 % (11.5-14.5) Platelet Count 298 x10^3/uL (140-400) Neutrophils (%) (Auto) 76 % (31-73) Lymphocytes (%) (Auto) 15 % (24-48) Monocytes (%) (Auto) 6 % (0-9) Eosinophils (%) (Auto) 2 % (0-3) Basophils (%) (Auto) 1 % (0-3) Neutrophils # (Auto) 9.1 x10^3uL (1.8-7.7) Lymphocytes # (Auto) 1.8 x10^3/uL (1.0-4.8) Monocytes # (Auto) 0.8 x10^3/uL (0.0-1.1) Eosinophils # (Auto) 0.2 x10^3/uL (0.0-0.7) Basophils # (Auto) 0.1 x10^3/uL (0.0-0.2) Sodium Level 142 mmol/L (136-145) Potassium Level 4.0 mmol/L (3.5-5.1) Chloride Level 110 mmol/L (98-107) Carbon Dioxide Level 21 mmol/L (21-32) Anion Gap 11 (6-14) Blood Urea Nitrogen 11 mg/dL (7-20) Creatinine 0.9 mg/dL (0.6-1.0) Estimated GFR (Cockcroft-Gault) 81.9 Glucose Level 88 mg/dL (70-99) Calcium Level 9.2 mg/dL (8.5-10.1) Microbiology 07/12/18 Urine Culture - Final, Complete 07/12/18 Urine Culture Result 1 (SHEBA) - Final, Complete Medications Current Medications Sodium Chloride 1,000 ml @ 1,000 mls/hr 1X ONCE IV Last administered on at 09:37; Start 07/12/18 at 09:15; Stop 07/12/18 at 10:14; Status DC Ondansetron HCl (Zofran) 4 mg 1X ONCE IV Last administered on 07/12/18at 09:43 ; Start 07/12/18 at 09:15; Stop 07/12/18 at 09:16; Status DC Dicyclomine HCl (Bentyl) 20 mg 1X ONCE IM Last administered on 07/12/18at 10:44 ; Start 07/12/18 at 09:15; Stop 07/12/18 at 09:16; Status DC Iohexol (Omnipaque 300 Mg/ml) 75 ml 1X ONCE IV Last administered on 07/12/18at 10:30; Start 07/12/18 at 10:30; Stop 07/12/18 at 10:32; Status DC Info (CONTRAST GIVEN -- Rx MONITORING) 1 each PRN DAILY PRN MC SEE COMMENTS; Start 07/12/18 at 10:45; Stop 07/14/18 at 10:44; Status DC Metronidazole 100 ml @ 100 mls/hr 1X ONCE IV Last administered on 07/12/18at 13:10; Start 07/12/18 at 12:30; Stop 07/12/18 at 13:29; Status DC Ciprofloxacin/ Dextrose 200 ml @ 200 mls/hr Q12HR IV Last administered on 07/12at 23:00; Start 07/12/18 at 13:30; Stop 07/13/18 at 08:57; Status DC Morphine Sulfate (Morphine Sulfate) 2 mg PRN Q2HR PRN IV SEVERE PAIN Last administered on 07/13/18at 16:10; Start 07/12/18 at 16:00; Stop 07/17/18 at 09:36 ; Status DC Atorvastatin Calcium (Lipitor) 20 mg HS PO Last administered on 07/18/18at 21:11 ; Start 07/12/18 at 21:00 Cetirizine HCl (ZyrTEC) 10 mg DAILY PO Last administered on 07/19/18at 09:56; Start 07/12/18 at 16:00 Lubiprostone (Amitiza) 8 mcg BID PO Last administered on 07/13/18at 08:23; Start 07/12/18 at 21:00; Stop 07/13/18 at 08:49; Status DC Lisinopril (Prinivil) 10 mg DAILY PO Last administered on 07/19/18at 10:04; Start 07/13/18 at 09:00 Oxcarbazepine (Trileptal) 300 mg BID PO Last administered on 07/13/18at 08:23; Start 07/12/18 at 21:00; Stop 07/13/18 at 11:19; Status DC Polyethylene Glycol (miraLAX PACKET) 17 gm BID PO Last administered on at 09:54; Start 07/12/18 at 21:00 Topiramate (Topamax) 100 mg BID PO Last administered on 07/19/18at 09:56; Start 07/12/18 at 21:00 Hydrochlorothiazide (Microzide) 12.5 mg DAILY PO Last administered on at 11:44; Start 07/13/18 at 09:00; Stop 07/16/18 at 11:39; Status DC Ketorolac Tromethamine (Toradol 30mg Vial) 30 mg PRN Q6HRS PRN IV MILD - MODERATE PAIN; Start 07/12/18 at 20:00; Stop 07/17/18 at 19:59; Status DC Lactobacillus Rhamnosus (Culturelle) 1 cap BID PO Last administered on at 09:55; Start 07/13/18 at 09:00 Ciprofloxacin/ Dextrose 200 ml @ 200 mls/hr Q12H IV Last administered on at 10:49; Start 07/13/18 at 11:00; Stop 07/16/18 at 11:39; Status DC Metronidazole 100 ml @ 100 mls/hr Q8HRS IV Last administered on 07/16/18at 06: 09; Start 07/13/18 at 09:00; Stop 07/16/18 at 11:39; Status DC Potassium Chloride (Klor-Con) 40 meq 1X ONCE PO Last administered on at 09:26; Start 07/13/18 at 08:45; Stop 07/13/18 at 08:52; Status DC Potassium Chloride (Klor-Con) 40 meq DAILYWBKFT PO Last administered on at 09:55; Start 07/14/18 at 08:00 Loperamide HCl (Imodium) 2 mg PRN Q15MIN PRN PO DIARRHEA Last administered on at 09:40; Start 07/13/18 at 08:45 Ondansetron HCl (Zofran) 4 mg PRN Q6HRS PRN IV NAUSEA/VOMITING Last administered on 07/18/18at 01:50; Start 07/13/18 at 08:45 Ondansetron HCl (Zofran Odt) 4 mg PRN Q6HRS PRN PO NAUSEA/VOMITING Last administered on 07/18/18at 14:03; Start 07/13/18 at 08:45 Acetaminophen (Tylenol) 500 mg PRN Q6HRS PRN PO MILD PAIN / TEMP Last administered on 07/17/18at 10:09; Start 07/13/18 at 08:45 Acetaminophen/ Hydrocodone Bitart (Lortab 5/325) 1 tab PRN Q4HRS PRN PO PAIN MODERATE TO SEVERE Last administered on 07/18/18at 16:30; Start 07/13/18 at 08:45 Sodium Chloride 1,000 ml @ 100 mls/hr 1X ONCE IV Last administered on at 09:33; Start 07/13/18 at 09:00; Stop 07/13/18 at 18:59; Status DC Oxcarbazepine (Trileptal) 900 mg BID PO Last administered on 07/18/18 21:11; Start 07/13/18 at 21:00 Bisacodyl (Dulcolax Tab) 10 mg 1X ONCE PO Last administered on 07/13/18at 17:07 ; Start 07/13/18 at 17:00; Stop 07/13/18 at 17:01; Status DC Polyethylene Glycol (miraLAX Powder BULK BOTTLE) 238 gm 1X ONCE PO Last administered on 07/13/18at 19:35; Start 07/13/18 at 19:00; Stop 07/13/18 at 19:01 ; Status DC Sodium Chloride (Normal Saline Flush) 3 ml QSHIFT PRN IV AFTER MEDS AND BLOOD DRAWS; Start 07/13/18 at 16:45 Sodium Chloride (Normal Saline Flush) 3 ml QSHIFT PRN IV AFTER MEDS AND BLOOD DRAWS; Start 07/13/18 at 16:45; Status UNV Benzocaine (Hurricaine One) 1 spray STK-MED ONCE .ROUTE ; Start 07/14/18 at 07: 58; Stop 07/14/18 at 07:59; Status DC Midazolam HCl (Versed) 5 mg STK-MED ONCE .ROUTE ; Start 07/14/18 at 07:59; Stop 07/14/18 at 08:00; Status DC Fentanyl Citrate (Fentanyl 2ml Vial) 100 mcg STK-MED ONCE .ROUTE ; Start at 07:59; Stop 07/14/18 at 08:00; Status DC Propofol 40 ml @ As Directed STK-MED ONCE IV ; Start 07/14/18 at 08:34; Stop at 08:35; Status DC Lidocaine HCl (Lidocaine Pf 2% Vial) 5 ml STK-MED ONCE .ROUTE ; Start 07/14/18 at 08:34; Stop 07/14/18 at 08:35; Status DC Cefazolin Sodium/ Dextrose 50 ml @ 100 mls/hr 1X PREOP PRN IV manager semiconductor to OR Last administered on 07/15/18at 09:40; Start 07/15/18 at 06:00; Stop 07/15/18 at 18:00; Status DC Metronidazole 100 ml @ 100 mls/hr 1X PREOP PRN IV manager semiconductor to OR; Start at 06:00; Stop 07/15/18 at 18:00; Status DC Fentanyl Citrate (Fentanyl 2ml Vial) 25 mcg PRN Q5MIN PRN IV MILD PAIN; Start 07/15/18 at 07:00; Stop 07/15/18 at 21:00; Status DC Fentanyl Citrate (Fentanyl 2ml Vial) 50 mcg PRN Q5MIN PRN IV MODERATE TO SEVERE PAIN Last administered on 07/15/18at 13:55; Start 07/15/18 at 07:00; Stop 07/15/18 at 21:00; Status DC Morphine Sulfate (Morphine Sulfate) 1 mg PRN Q10MIN PRN IV SEVERE PAIN; Start 07/15/18 at 07:00; Stop 07/15/18 at 21:00; Status DC Ringer's Solution 1,000 ml @ 30 mls/hr Q24H IV ; Start 07/15/18 at 07:00; Stop 07/15/18 at 18:59; Status DC Lidocaine HCl (Xylocaine-Mpf 1% 2ml Vial) 2 ml PRN 1X PRN ID IV START; Start at 07:00; Stop 07/15/18 at 21:00; Status DC Hydromorphone HCl (Dilaudid) 0.5 mg PRN Q10MIN PRN IV SEV PAIN, Second choice; Start 07/15/18 at 07:00; Stop 07/15/18 at 21:00; Status DC Prochlorperazine Edisylate (Compazine) 5 mg PACU PRN PRN IV NAUSEA, MRX1; Start 07/15/18 at 07:00; Stop 07/15/18 at 21:00; Status DC Epinephrine HCl (Adrenalin) 30 mg STK-MED ONCE .ROUTE ; Start 07/15/18 at 08:02 ; Stop 07/15/18 at 09:03; Status DC Bupivacaine HCl (Sensorcaine Mpf 0.25%) 30 ml STK-MED ONCE .ROUTE ; Start at 08:02; Stop 07/15/18 at 09:03; Status DC Sevoflurane (Ultane) 90 ml STK-MED ONCE IH ; Start 07/15/18 at 09:12; Stop 07/15 at 09:13; Status DC Midazolam HCl (Versed) 2 mg STK-MED ONCE .ROUTE ; Start 07/15/18 at 09:12; Stop 07/15/18 at 09:13; Status DC Fentanyl Citrate (Fentanyl 2ml Vial) 100 mcg STK-MED ONCE .ROUTE ; Start at 09:12; Stop 07/15/18 at 09:13; Status DC Glycopyrrolate (Robinul) 1 mg STK-MED ONCE .ROUTE ; Start 07/15/18 at 09:13; Stop 07/15/18 at 09:14; Status DC Neostigmine Methylsulfate (Neostigmine Methylsulfate) 5 mg STK-MED ONCE .ROUTE ; Start 07/15/18 at 09:13; Stop 07/15/18 at 09:14; Status DC Rocuronium [place] (Zemuron) 50 mg STK-MED ONCE .ROUTE ; Start 07/15/18 at 09:13 ; Stop 07/15/18 at 09:14; Status DC Dexamethasone Sodium Phosphate (Decadron) 20 mg STK-MED ONCE .ROUTE ; Start at 09:13; Stop 9/18/18 at 09:14; Status DC Ketorolac Tromethamine (Toradol For Or Only) 30 mg STK-MED ONCE INJ ; Start at 09:13; Stop 07/15/18 at 09:14; Status DC Propofol 20 ml @ As Directed STK-MED ONCE IV ; Start 07/15/18 at 09:13; Stop at 09:14; Status DC Ondansetron HCl (Zofran) 4 mg STK-MED ONCE .ROUTE ; Start 07/15/18 at 09:13; Stop 07/15/18 at 09:14; Status DC Phenylephrine HCl (PHENYLEPHRINE in 0.9% NACL PF) 1 mg STK-MED ONCE IV ; Start 07/15/18 at 09:53; Stop 07/15/18 at 09:54; Status DC Fentanyl Citrate (Fentanyl 2ml Vial) 100 mcg STK-MED ONCE .ROUTE ; Start at 10:05; Stop 07/15/18 at 10:06; Status DC Esmolol HCl (Brevibloc) 100 mg STK-MED ONCE IV ; Start 07/15/18 at 10:09; Stop 07/15/18 at 10:10; Status DC Rocuronium [place] (Zemuron) 50 mg STK-MED ONCE .ROUTE ; Start 07/15/18 at 10:10 ; Stop 07/15/18 at 10:11; Status DC Ephedrine Sulfate (ePHEDrine PF IN SALINE SYRINGE) 50 mg STK-MED ONCE IV ; Start 07/15/18 at 11:02; Stop 07/15/18 at 11:03; Status DC Fentanyl Citrate (Fentanyl 2ml Vial) 100 mcg STK-MED ONCE .ROUTE ; Start at 11:09; Stop 07/15/18 at 11:10; Status DC Fentanyl Citrate (Fentanyl 2ml Vial) 100 mcg STK-MED ONCE .ROUTE ; Start at 12:51; Stop 07/15/18 at 12:52; Status DC Morphine Sulfate 30 ml @ 0 mls/hr CONT PRN PRN IV PER PROTOCOL Last administered on 07/16/18at 19:50; Start 07/15/18 at 13:30; Stop 07/17/18 at 09:43 ; Status DC Fentanyl Citrate (Fentanyl 2ml Vial) 100 mcg STK-MED ONCE .ROUTE ; Start at 13:34; Stop 07/15/18 at 13:35; Status DC Throat Lozenges (Chloraseptic) 1 spray PRN Q3HRS PRN PO SORE THROAT Last administered on 07/15/18at 21:55; Start 07/15/18 at 21:45 Sodium Chloride 1,000 ml @ 1,000 mls/hr 1X ONCE IV Last administered on at 03:45; Start 07/16/18 at 03:45; Stop 07/16/18 at 04:44; Status DC Sodium Chloride 1,000 ml @ 125 mls/hr 1X ONCE IV ; Start 07/16/18 at 04:45; Stop 07/16/18 at 12:44; Status Cancel Sodium Chloride 1,000 ml @ 125 mls/hr Q8H IV Last administered on 07/19/18at 02 :27; Start 07/16/18 at 05:00 Enoxaparin Sodium (Lovenox 40mg Syringe) 40 mg Q24H SQ Last administered on at 09:59; Start 07/16/18 at 10:00 Albuterol/ Ipratropium (Duoneb) 3 ml RTQID NEB Last administered on 07/19/18at 10:52; Start 07/16/18 at 12:00 Albuterol Sulfate (Ventolin Neb Soln) 2.5 mg PRN Q4HRS PRN NEB SHORTNESS OF BREATH Last administered on 07/18/18at 05:10; Start 07/16/18 at 11:45 Al Hydroxide/Mg Hydroxide (Mylanta Plus Xs) 30 ml PRN Q2HR PRN PO HEARTBURN / GAS; Start 07/16/18 at 22:00; Stop 07/16/18 at 22:00; Status DC Famotidine (Pepcid) 20 mg QHS PO ; Start 07/17/18 at 21:00; Stop 07/17/18 at 21: 00; Status DC Famotidine (Pepcid) 20 mg 1X ONCE PO ; Start 07/16/18 at 22:00; Stop 07/16/18 at 22:00; Status DC Famotidine (Pepcid Vial) 20 mg QHS IVP Last administered on 07/17/18at 21:16; Start 07/17/18 at 21:00; Stop 07/18/18 at 08:21; Status DC Famotidine (Pepcid Vial) 20 mg 1X ONCE IVP Last administered on 07/16/18at 22: 38; Start 07/16/18 at 22:30; Stop 07/16/18 at 22:31; Status DC Iron Sucrose 200 mg/Sodium Chloride 110 ml @ 55 mls/hr DAILY IV Last administered on 07/19/18at 09:53; Start 07/17/18 at 12:30; Stop 07/21/18 at 12:29 Calcium Carbonate/ Glycine (Tums) 500 mg PRN AFTMEALHC PRN PO INDIGESTION Last administered on 07/18/18at 16:30; Start 07/17/18 at 21:15 Iohexol (Omnipaque 300 Mg/ml) 75 ml 1X ONCE IV Last administered on 07/18/18at 08:15; Start 07/18/18 at 08:15; Stop 07/18/18 at 08:16; Status DC Info (CONTRAST GIVEN -- Rx MONITORING) 1 each PRN DAILY PRN MC SEE COMMENTS; Start 07/18/18 at 08:15; Stop 07/20/18 at 08:14 Famotidine (Pepcid Vial) 20 mg BID IVP Last administered on 07/19/18at 09:54; Start 07/18/18 at 09:00 Multi-Ingredient Mouthwash/Gargle (Gi Cocktail) 20 ml PRN QID PRN PO CHEST PAIN Last administered on 07/18/18at 13:57; Start 07/18/18 at 12:00 Active Scripts Active Reported Advair 250-50 Diskus (Fluticasone/Salmeterol) 1 Each Disk.w.dev 1 Puff IH BID Proair Hfa Inhaler (Albuterol Sulfate) 8.5 Gm Hfa.aer.ad 1 Puff INH PRN Q6HRS PRN Amitiza (Lubiprostone) 8 Mcg Capsule 1 Cap PO BID Miralax (Polyethylene Glycol 3350) 17 Gm Powd.pack 1 Packet PO BID Zyrtec (Cetirizine Hcl) 10 Mg Tablet 1 Tab PO DAILY Atorvastatin Calcium 20 Mg Tablet 20 Mg PO HS Topiramate 100 Mg Tablet 1 Tab PO BID Oxcarbazepine 300 Mg Tablet 1 Tab PO BID Lisinopril-Hctz 10-12.5 Mg Tab (Lisinopril/Hydrochlorothiazide) 1 Each Tablet 1 Tab PO DAILY Vitals/I & O Vital Sign - Last 24 Hours 07/18/18 07/18/18 07/18/18 07/18/18 15:00 15:45 16:30 17:30 Temp 97.8 97.8 Pulse 96 Resp 18 B/P (MAP) 130/83 (99) Pulse Ox 95 97 97 97 O2 Delivery Nasal Cannula Room Air Room Air Room Air O2 Flow Rate 2.0 07/18/18 07/18/18 07/18/18 07/18/18 19:00 19:44 20:00 23:00 Temp 98.6 98.9 98.6 98.9 Pulse 99 85 Resp 14 14 B/P (MAP) 140/88 (105) 127/80 (96) Pulse Ox 100 98 96 O2 Delivery Nasal Cannula Room Air Room Air Nasal Cannula O2 Flow Rate 2.0 2.0 07/19/18 07/19/18 07/19/18 07/19/18 03:00 07:00 07:15 10:04 Temp 98.6 97.4 98.6 97.4 Pulse 89 89 89 Resp 14 16 B/P (MAP) 135/86 (102) 123/77 (92) 123/77 Pulse Ox 96 99 100 O2 Delivery Nasal Cannula Nasal Cannula O2 Flow Rate 2.0 2.0 07/19/18 07/19/18 10:53 11:00 Temp 98.3 98.3 Pulse 90 Resp 16 B/P (MAP) 116/69 (85) Pulse Ox 97 O2 Delivery Room Air Room Air Intake and Output 07/18/18 07/18/18 07/19/18 15:00 23:00 07:00 Intake Total 0 ml Output Total 1 ml Balance -1 ml 0 ml KAREN JORDAN MD Jul 19, 2018 13:13
[2018-07-19] MEDS: OXcarbazepine 300 MG TABLET PO SCH ×2 (13:42→21:43)
[2018-07-19] MEDS: ENOXAPARIN 40 MG/0.4 ML SYRINGE. SQ SCH ×2 (13:42→21:44)
[2018-07-19] MEDS: HYDROcodone/APAP 5/325MG 1 TAB TABLET PO PRN ×2 (13:43→21:44)
--- NOTE | 2018-07-19 14:02 | PDOC ---
PROGRESS NOTES Assessment Assessment Confusional episode. Seizure? UTI. Cecal adenocarcinoma, s/p right colectomy. Abdominal pain. Leukocytosis. Cholelithiasis. Anemia. HLD. Obesity. RECOMMENDATIONS/PLAN: Continue Trileptal. Continue Topamax 100 mg bid. Continue Lipitor HS. Treat medical and surgical diseases. Consulted GI as well. EEG on 07/17/18: Normal study. HISTORY OF THE PRESENT ILLNESS: 47-y-old AA female patient with above medical diseases has been having symptoms of abdominal pain, vomiting and diarrhea for admission. She had Hx of seizure many years ago, but was seizure free for several years. She had episodes of confusions and suspected possible seizures, so Neurology was requested for consultation. No shaking, jerking or magui movements. Past Medical History Cardiovascular: HTN, Hyperlipidemia Pulmonary: Asthma CENTRAL NERVOUS SYSTEM: Seizure Past Surgical History Family History Diabetes Social History Smoking <1 pack per day ALCOHOL: none Drugs: None Lives: with Family ALLERGY: Reviewed. MEDICATIONS: Refer to MAR REVIEW OF SYSTEMS: Constitutional: Obesity. Head: No traumatic brain or head injury. Skin: No edema, or rash. Ear: No infection. Eyes: No vision loss or color blindness. Nose: No bleeding or purulent discharges. Hearing: No hearing decrease. Neck: No injury. Breast: No history of cancer, masses,or discharges. Cardiac: HTN, HLD. Pulmonary: No COPD. GI: Possible malignant colonic mass this time. Urinary/genital: UTI. Endocrinologic: Obesity. Skeletomuscular: No muscular atrophy, deformity. Neurological: see HP. Psychiatric: Substance use/abuse. Otherwise, not [id number] review of systems. PHYSICAL EXAMINATION: General appearance is in subacute distress. HEENT: Normocephalic and nontraumatic. Eyes, nose, ears, and throat are unremarkable. Neck is supple. No lymphadenopathy. No bruits are heard over the carotid artery. No crepitus. Cardiovascular: S1, S2, regular rate and rhythm. Pulmonary: Clear to auscultation bilaterally. Abdomen: Bowel sounds are positive. Extremities: No rash, lesions, or edema. No restriction of range of motion NEUROLOGICAL EXAMINATION: Alert Oriented to time, place and person. PERRL. EOMI. CN: no focal findings. Muscle tone: within normal. Muscle strength: 5 DTR: 2 Plantar reflex: Flexor response bilaterally Gait: not examined in bed. Sensory exam: no abnormal findings. No cerebellar signs elicited. F-T-N test accurate. Objective Objective Vital Signs Date Time Temp Pulse Resp B/P (MAP) Pulse Ox O2 Delivery O2 Flow Rate FiO2 07/19/18 13:43 22 Room Air 07/19/18 11:00 98.3 90 116/69 (85) 97 98.3 07/19/18 07:15 2.0 Intake and Output 07/19/18 07:00 Intake Total 0 ml Output Total 1 ml Balance -1 ml Intake Oral 0 ml Output Urine Total 1 ml # Voids 3 # Bowel Movements 4 Vitals Signs Vitals VS - Last 72 Hours, by Label Date Time Temp Pulse Resp B/P (MAP) Pulse Ox O2 Delivery O2 Flow Rate FiO2 07/19/18 13:43 22 Room Air 07/19/18 11:00 98.3 90 16 116/69 (85) 97 Room Air 98.3 07/19/18 10:53 Room Air 07/19/18 10:04 89 123/77 07/19/18 07:15 100 Nasal Cannula 2.0 07/19/18 07:00 97.4 89 16 123/77 (92) 99 97.4 07/19/18 03:00 98.6 89 14 135/86 (102) 96 Nasal Cannula 2.0 98.6 07/18/18 23:00 98.9 85 14 127/80 (96) 96 Nasal Cannula 2.0 98.9 07/18/18 20:00 Room Air 07/18/18 19:44 98 Room Air 07/18/18 19:00 98.6 99 14 140/88 (105) 100 Nasal Cannula 2.0 98.6 07/18/18 17:30 97 Room Air 07/18/18 16:30 97 Room Air 07/18/18 15:45 97 Room Air 07/18/18 15:00 97.8 96 18 130/83 (99) 95 Nasal Cannula 2.0 97.8 07/18/18 11:22 97 Room Air 07/18/18 11:00 98.6 87 16 147/90 (109) 98 Room Air 98.6 07/18/18 09:40 92 126/82 07/18/18 09:39 93 Room Air 07/18/18 08:00 Room Air 2.0 07/18/18 07:01 93 Nasal Cannula 2.0 07/18/18 07:00 97.9 92 16 126/82 (97) 98 Nasal Cannula 2.0 97.9 Laboratory Laboratory Laboratory Tests Test 07/19/18 04:05 White Blood Count 11.9 x10^3/uL (4.0-11.0) Red Blood Count 3.72 x10^6/uL (3.50-5.40) Hemoglobin 9.6 g/dL (12.0-15.5) Hematocrit 29.7 % (36.0-47.0) Mean Corpuscular Volume 80 fL (79-100) Mean Corpuscular Hemoglobin 26 pg (25-35) Mean Corpuscular Hemoglobin Concent 32 g/dL (31-37) Red Cell Distribution Width 18.3 % (11.5-14.5) Platelet Count 298 x10^3/uL (140-400) Neutrophils (%) (Auto) 76 % (31-73) Lymphocytes (%) (Auto) 15 % (24-48) Monocytes (%) (Auto) 6 % (0-9) Eosinophils (%) (Auto) 2 % (0-3) Basophils (%) (Auto) 1 % (0-3) Neutrophils # (Auto) 9.1 x10^3uL (1.8-7.7) Lymphocytes # (Auto) 1.8 x10^3/uL (1.0-4.8) Monocytes # (Auto) 0.8 x10^3/uL (0.0-1.1) Eosinophils # (Auto) 0.2 x10^3/uL (0.0-0.7) Basophils # (Auto) 0.1 x10^3/uL (0.0-0.2) Sodium Level 142 mmol/L (136-145) Potassium Level 4.0 mmol/L (3.5-5.1) Chloride Level 110 mmol/L (98-107) Carbon Dioxide Level 21 mmol/L (21-32) Anion Gap 11 (6-14) Blood Urea Nitrogen 11 mg/dL (7-20) Creatinine 0.9 mg/dL (0.6-1.0) Estimated GFR (Cockcroft-Gault) 81.9 Glucose Level 88 mg/dL (70-99) Calcium Level 9.2 mg/dL (8.5-10.1) Microbiology 07/12/18 Urine Culture - Final, Complete 07/12/18 Urine Culture Result 1 (SHEBA) - Final, Complete Comment Review of Relevant I have reviewed the following items [email or web address] (where applicable) has been applied. BERNARD ARREAGA MD Jul 19, 2018 14:02
[2018-07-19 15:21] VITALS: BP 116/69
[2018-07-19 19:00] VITALS: BP 113/79
[2018-07-19] MEDS: ATORVASTATIN CALCIUM 20 MG TABLET PO SCH (21:43)
[2018-07-19 23:00] VITALS: BP 120/77
[2018-07-20] MEDS: IV NORMAL SALINE 1000ML BAG 1,000 ML IV SCH ×2 (01:54→10:04)
[2018-07-20 03:00] VITALS: BP 127/80
[2018-07-20 04:58] LABS: BASO % 1 % (0-3); EOS # 0.4 x10^3/uL (0.0-0.7); EOS % 4 % (0-3); HEMATOCRIT 28.3 % (36.0-47.0); HEMOGLOBIN 9.5 g/dL (12.0-15.5); LYMPH # 1.7 x10^3/uL (1.0-4.8); LYMPH % 16 % (24-48); MEAN CORPUSCULAR HEMOGLOBIN 27 pg (25-35); MEAN CORPUSCULAR HGB CONC 33 g/dL (31-37); MEAN CORPUSCULAR VOLUME 80 fL (79-100); MONO # 0.6 x10^3/uL (0.0-1.1); MONO % 6 % (0-9); NEUT # 7.6 x10^3uL (1.8-7.7); NEUT % 74 % (31-73); PLATELET COUNT 289 x10^3/uL (140-400); RED BLOOD COUNT 3.56 x10^6/uL (3.50-5.40); RED CELL DISTRIBUTION WIDTH 18.3 % (11.5-14.5); WHITE BLOOD COUNT 10.3 x10^3/uL (4.0-11.0)
[2018-07-20 05:25] LABS: CALCIUM 8.2 mg/dL (8.5-10.1); CREATININE 0.9 mg/dL (0.6-1.0); GFR 81.9; POTASSIUM 3.7 mmol/L (3.5-5.1)
[2018-07-20] MEDS: IPRATRPIUM/ALBUTEROL 0.5/2.5MG 3 ML NEBU. NEB SCH ×4 (06:57→19:42)
[2018-07-20 07:00] VITALS: BP 137/91
[2018-07-20 07:49] LABS: % BANDS 2 % (0-9); % EOS 3 % (0-5); % LYMPHS 23 % (24-48); % MONOS 6 % (0-10); % SEGS 66 % (35-66); PLT ESTIMATE ADEQUATE (ADEQUATE)
[2018-07-20] MEDS: TOPIRAMATE 25 MG TABLET. PO SCH ×2 (09:00→20:44)
[2018-07-20] MEDS: LISINOPRIL 10 MG TABLET PO SCH (09:00)
[2018-07-20] MEDS: POLYETHYLENE GLYCOL 3350 17 GM PACKET. PO SCH ×2 (09:00→20:44)
--- NOTE | 2018-07-20 09:36 | PDOC ---
SURGICAL PROGRESS NOTE Subjective Patient is doing well minimal pain has not taken much of her clear liquids Vital Signs Vital Signs Date Time Temp Pulse Resp B/P (MAP) Pulse Ox O2 Delivery O2 Flow Rate FiO2 07/20/18 06:58 100 Room Air 07/20/18 03:00 98.6 90 18 127/80 (96) 98.6 07/19/18 07:15 2.0 I&O Intake and Output 07/20/18 07:00 Intake Total 2440 ml Output Total 300 ml Balance 2140 ml Intake Oral 850 ml IV Total 960 ml Other 630 ml Output Urine Total 200 ml Stool Total 100 ml # Voids 3 # Bowel Movements 1 PATIENT HAS A ADAM: No General: Alert, Oriented X3, Cooperative, mild distress Abdomen: Normal bowel sounds, Soft, Other (wounds clean dry and intact minimal incisional tenderness) Labs Laboratory Tests Test 07/19/18 04:05 07/20/18 04:15 White Blood Count 11.9 x10^3/uL (4.0-11.0) 10.3 x10^3/uL (4.0-11.0) Red Blood Count 3.72 x10^6/uL (3.50-5.40) 3.56 x10^6/uL (3.50-5.40) Hemoglobin 9.6 g/dL (12.0-15.5) 9.5 g/dL (12.0-15.5) Hematocrit 29.7 % (36.0-47.0) 28.3 % (36.0-47.0) Mean Corpuscular Volume 80 fL (79-100) 80 fL (79-100) Mean Corpuscular Hemoglobin 26 pg (25-35) 27 pg (25-35) Mean Corpuscular Hemoglobin Concent 32 g/dL (31-37) 33 g/dL (31-37) Red Cell Distribution Width 18.3 % (11.5-14.5) 18.3 % (11.5-14.5) Platelet Count 298 x10^3/uL (140-400) 289 x10^3/uL (140-400) Neutrophils (%) (Auto) 76 % (31-73) 74 % (31-73) Lymphocytes (%) (Auto) 15 % (24-48) 16 % (24-48) Monocytes (%) (Auto) 6 % (0-9) 6 % (0-9) Eosinophils (%) (Auto) 2 % (0-3) 4 % (0-3) Basophils (%) (Auto) 1 % (0-3) 1 % (0-3) Neutrophils # (Auto) 9.1 x10^3uL (1.8-7.7) 7.6 x10^3uL (1.8-7.7) Lymphocytes # (Auto) 1.8 x10^3/uL (1.0-4.8) 1.7 x10^3/uL (1.0-4.8) Monocytes # (Auto) 0.8 x10^3/uL (0.0-1.1) 0.6 x10^3/uL (0.0-1.1) Eosinophils # (Auto) 0.2 x10^3/uL (0.0-0.7) 0.4 x10^3/uL (0.0-0.7) Basophils # (Auto) 0.1 x10^3/uL (0.0-0.2) 0.0 x10^3/uL (0.0-0.2) Sodium Level 142 mmol/L (136-145) 141 mmol/L (136-145) Potassium Level 4.0 mmol/L (3.5-5.1) 3.7 mmol/L (3.5-5.1) Chloride Level 110 mmol/L (98-107) 110 mmol/L (98-107) Carbon Dioxide Level 21 mmol/L (21-32) 20 mmol/L (21-32) Anion Gap 11 (6-14) 11 (6-14) Blood Urea Nitrogen 11 mg/dL (7-20) 8 mg/dL (7-20) Creatinine 0.9 mg/dL (0.6-1.0) 0.9 mg/dL (0.6-1.0) Estimated GFR (Cockcroft-Gault) 81.9 81.9 Glucose Level 88 mg/dL (70-99) 82 mg/dL (70-99) Calcium Level 9.2 mg/dL (8.5-10.1) 8.2 mg/dL (8.5-10.1) Segmented Neutrophils % 66 % (35-66) Band Neutrophils % 2 % (0-9) Lymphocytes % 23 % (24-48) Monocytes % 6 % (0-10) Eosinophils % 3 % (0-5) Platelet Estimate Adequate (ADEQUATE) Laboratory Tests Test 07/20/18 04:15 White Blood Count 10.3 x10^3/uL (4.0-11.0) Red Blood Count 3.56 x10^6/uL (3.50-5.40) Hemoglobin 9.5 g/dL (12.0-15.5) Hematocrit 28.3 % (36.0-47.0) Mean Corpuscular Volume 80 fL (79-100) Mean Corpuscular Hemoglobin 27 pg (25-35) Mean Corpuscular Hemoglobin Concent 33 g/dL (31-37) Red Cell Distribution Width 18.3 % (11.5-14.5) Platelet Count 289 x10^3/uL (140-400) Neutrophils (%) (Auto) 74 % (31-73) Lymphocytes (%) (Auto) 16 % (24-48) Monocytes (%) (Auto) 6 % (0-9) Eosinophils (%) (Auto) 4 % (0-3) Basophils (%) (Auto) 1 % (0-3) Neutrophils # (Auto) 7.6 x10^3uL (1.8-7.7) Lymphocytes # (Auto) 1.7 x10^3/uL (1.0-4.8) Monocytes # (Auto) 0.6 x10^3/uL (0.0-1.1) Eosinophils # (Auto) 0.4 x10^3/uL (0.0-0.7) Basophils # (Auto) 0.0 x10^3/uL (0.0-0.2) Segmented Neutrophils % 66 % (35-66) Band Neutrophils % 2 % (0-9) Lymphocytes % 23 % (24-48) Monocytes % 6 % (0-10) Eosinophils % 3 % (0-5) Platelet Estimate Adequate (ADEQUATE) Sodium Level 141 mmol/L (136-145) Potassium Level 3.7 mmol/L (3.5-5.1) Chloride Level 110 mmol/L (98-107) Carbon Dioxide Level 20 mmol/L (21-32) Anion Gap 11 (6-14) Blood Urea Nitrogen 8 mg/dL (7-20) Creatinine 0.9 mg/dL (0.6-1.0) Estimated GFR (Cockcroft-Gault) 81.9 Glucose Level 82 mg/dL (70-99) Calcium Level 8.2 mg/dL (8.5-10.1) Problem List Problems Medical Problems: (1) Abdominal pain Status: Acute (2) Bandemia Status: Acute (3) Leukocytosis Status: Acute (4) Nausea vomiting and diarrhea Status: Acute (5) UTI (urinary tract infection) Status: Acute Assessment/Plan Status post colectomy Has not taken much of her clear liquids work on that today advance diet as tolerated RAJAT HAMILTON MD Jul 20, 2018 09:36
[2018-07-20] MEDS: IRON SUCROSE COMPLEX 200 MG in IV NORMAL SALINE 100ML 100 ML IV SCH (10:04)
[2018-07-20] MEDS: FAMOTIDINE 20 MG/2 ML VIAL IVP SCH ×2 (10:08→20:45)
[2018-07-20] MEDS: LACTOBACILLUS RHAMNOSUS GG 1 CAPSULE. PO SCH ×2 (10:11→20:44)
[2018-07-20] MEDS: CETIRIZINE HCL 10 MG TABLET. PO SCH (10:11)
[2018-07-20] MEDS: POTASSIUM CHLORIDE 20 MEQ TABLET.ER. PO SCH (10:18)
[2018-07-20] MEDS: OXcarbazepine 300 MG TABLET PO SCH ×2 (10:19→20:44)
[2018-07-20] MEDS: ENOXAPARIN 40 MG/0.4 ML SYRINGE. SQ SCH ×2 (10:20→20:44)
[2018-07-20 11:00] VITALS: BP 121/76
[2018-07-20 14:11] LABS: BILIRUBIN,URINE NEGATIVE (NEG); CLARITY,URINE CLEAR; COLOR,URINE YELLOW; NITRITE,URINE NEGATIVE (NEG); PH,URINE 5.5; PROTEIN,URINE NEGATIVE (NEG-TRACE); UROBILINOGEN,URINE 0.2 mg/dL (0.2 mg/dL)
--- NOTE | 2018-07-20 14:16 | PDOC ---
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 Nonobstructing left intrarenal calculi. Enlarged fibroid uterus. Probable renal cysts. asthma HTN morbid obesity h/o seizure AMS at hosp, with GUIDE SETTER likely gastric bx + h pylori plan: fu wiht sx,off GUIDE SETTER , advance as tolerated as per sx, change to full liquid ivf dc hctz, monitor bp, lisinopril for now dvt ppx add duoneb, albuterol prn cont seizure meds, neuro consulted for AMS dc abx onco consulted, garsia CT for staging, no obvious mets on image? h pylori treatment defer to GI talked to pt about the path and h pylori, however, pt seems has problem to understand. dc on Saturday? History of Present Illness History of Present Illness Out having surgery for colon mass which is a new diagnosis- dx after EGD colonoscopy this admission CAT scan: 1. Mural thickening involving the colon in the ileocecal valve region raising the possibility of colonic malignancy. An inflammatory process cannot be excluded. There is mild associated dilatation of the distal small bowel and mild mesenteric adenopathy at this level. 2. Small amount of free fluid in the pelvis. 3. Cholelithiasis. 4. Nonobstructing left intrarenal calculi. 5. Enlarged fibroid uterus. 6. Probable renal cysts. has 2 times BM 07/17 as per pt very confused 07/16 night, GUIDE SETTER stopped. pain is ok pt has some dementia or cognitive impairement, no remember what i told her Vitals Vitals Vital Signs Date Time Temp Pulse Resp B/P (MAP) Pulse Ox O2 Delivery O2 Flow Rate FiO2 07/20/18 11:00 97.9 89 16 121/76 (91) 100 Room Air 97.9 07/19/18 07:15 2.0 Physical Exam General: Alert, Oriented X3, Cooperative, mild distress Heart: Regular rate, Normal S1, Normal S2, No murmurs Lungs: Clear Abdomen: Normal bowel sounds, Soft, Other (wounds clean dry and intact minimal incisional tenderness) Extremities: No clubbing, No cyanosis Skin: No rashes, No breakdown Labs LABS Laboratory Tests Test 07/20/18 04:15 White Blood Count 10.3 x10^3/uL (4.0-11.0) Red Blood Count 3.56 x10^6/uL (3.50-5.40) Hemoglobin 9.5 g/dL (12.0-15.5) Hematocrit 28.3 % (36.0-47.0) Mean Corpuscular Volume 80 fL (79-100) Mean Corpuscular Hemoglobin 27 pg (25-35) Mean Corpuscular Hemoglobin Concent 33 g/dL (31-37) Red Cell Distribution Width 18.3 % (11.5-14.5) Platelet Count 289 x10^3/uL (140-400) Neutrophils (%) (Auto) 74 % (31-73) Lymphocytes (%) (Auto) 16 % (24-48) Monocytes (%) (Auto) 6 % (0-9) Eosinophils (%) (Auto) 4 % (0-3) Basophils (%) (Auto) 1 % (0-3) Neutrophils # (Auto) 7.6 x10^3uL (1.8-7.7) Lymphocytes # (Auto) 1.7 x10^3/uL (1.0-4.8) Monocytes # (Auto) 0.6 x10^3/uL (0.0-1.1) Eosinophils # (Auto) 0.4 x10^3/uL (0.0-0.7) Basophils # (Auto) 0.0 x10^3/uL (0.0-0.2) Segmented Neutrophils % 66 % (35-66) Band Neutrophils % 2 % (0-9) Lymphocytes % 23 % (24-48) Monocytes % 6 % (0-10) Eosinophils % 3 % (0-5) Platelet Estimate Adequate (ADEQUATE) Sodium Level 141 mmol/L (136-145) Potassium Level 3.7 mmol/L (3.5-5.1) Chloride Level 110 mmol/L (98-107) Carbon Dioxide Level 20 mmol/L (21-32) Anion Gap 11 (6-14) Blood Urea Nitrogen 8 mg/dL (7-20) Creatinine 0.9 mg/dL (0.6-1.0) Estimated GFR (Cockcroft-Gault) 81.9 Glucose Level 82 mg/dL (70-99) Calcium Level 8.2 mg/dL (8.5-10.1) Assessment and Plan Assessmemt and Plan Problems Medical Problems: (1) Abdominal pain Status: Acute (2) Bandemia Status: Acute (3) Leukocytosis Status: Acute (4) Nausea vomiting and diarrhea Status: Acute (5) UTI (urinary tract infection) Status: Acute Comment Review of Relevant I have reviewed the following items dawson (where applicable) has been applied. Labs Laboratory Tests Test 07/19/18 04:05 07/20/18 04:15 White Blood Count 11.9 x10^3/uL (4.0-11.0) 10.3 x10^3/uL (4.0-11.0) Red Blood Count 3.72 x10^6/uL (3.50-5.40) 3.56 x10^6/uL (3.50-5.40) Hemoglobin 9.6 g/dL (12.0-15.5) 9.5 g/dL (12.0-15.5) Hematocrit 29.7 % (36.0-47.0) 28.3 % (36.0-47.0) Mean Corpuscular Volume 80 fL (79-100) 80 fL (79-100) Mean Corpuscular Hemoglobin 26 pg (25-35) 27 pg (25-35) Mean Corpuscular Hemoglobin Concent 32 g/dL (31-37) 33 g/dL (31-37) Red Cell Distribution Width 18.3 % (11.5-14.5) 18.3 % (11.5-14.5) Platelet Count 298 x10^3/uL (140-400) 289 x10^3/uL (140-400) Neutrophils (%) (Auto) 76 % (31-73) 74 % (31-73) Lymphocytes (%) (Auto) 15 % (24-48) 16 % (24-48) Monocytes (%) (Auto) 6 % (0-9) 6 % (0-9) Eosinophils (%) (Auto) 2 % (0-3) 4 % (0-3) Basophils (%) (Auto) 1 % (0-3) 1 % (0-3) Neutrophils # (Auto) 9.1 x10^3uL (1.8-7.7) 7.6 x10^3uL (1.8-7.7) Lymphocytes # (Auto) 1.8 x10^3/uL (1.0-4.8) 1.7 x10^3/uL (1.0-4.8) Monocytes # (Auto) 0.8 x10^3/uL (0.0-1.1) 0.6 x10^3/uL (0.0-1.1) Eosinophils # (Auto) 0.2 x10^3/uL (0.0-0.7) 0.4 x10^3/uL (0.0-0.7) Basophils # (Auto) 0.1 x10^3/uL (0.0-0.2) 0.0 x10^3/uL (0.0-0.2) Sodium Level 142 mmol/L (136-145) 141 mmol/L (136-145) Potassium Level 4.0 mmol/L (3.5-5.1) 3.7 mmol/L (3.5-5.1) Chloride Level 110 mmol/L (98-107) 110 mmol/L (98-107) Carbon Dioxide Level 21 mmol/L (21-32) 20 mmol/L (21-32) Anion Gap 11 (6-14) 11 (6-14) Blood Urea Nitrogen 11 mg/dL (7-20) 8 mg/dL (7-20) Creatinine 0.9 mg/dL (0.6-1.0) 0.9 mg/dL (0.6-1.0) Estimated GFR (Cockcroft-Gault) 81.9 81.9 Glucose Level 88 mg/dL (70-99) 82 mg/dL (70-99) Calcium Level 9.2 mg/dL (8.5-10.1) 8.2 mg/dL (8.5-10.1) Segmented Neutrophils % 66 % (35-66) Band Neutrophils % 2 % (0-9) Lymphocytes % 23 % (24-48) Monocytes % 6 % (0-10) Eosinophils % 3 % (0-5) Platelet Estimate Adequate (ADEQUATE) Laboratory Tests Test 07/20/18 04:15 White Blood Count 10.3 x10^3/uL (4.0-11.0) Red Blood Count 3.56 x10^6/uL (3.50-5.40) Hemoglobin 9.5 g/dL (12.0-15.5) Hematocrit 28.3 % (36.0-47.0) Mean Corpuscular Volume 80 fL (79-100) Mean Corpuscular Hemoglobin 27 pg (25-35) Mean Corpuscular Hemoglobin Concent 33 g/dL (31-37) Red Cell Distribution Width 18.3 % (11.5-14.5) Platelet Count 289 x10^3/uL (140-400) Neutrophils (%) (Auto) 74 % (31-73) Lymphocytes (%) (Auto) 16 % (24-48) Monocytes (%) (Auto) 6 % (0-9) Eosinophils (%) (Auto) 4 % (0-3) Basophils (%) (Auto) 1 % (0-3) Neutrophils # (Auto) 7.6 x10^3uL (1.8-7.7) Lymphocytes # (Auto) 1.7 x10^3/uL (1.0-4.8) Monocytes # (Auto) 0.6 x10^3/uL (0.0-1.1) Eosinophils # (Auto) 0.4 x10^3/uL (0.0-0.7) Basophils # (Auto) 0.0 x10^3/uL (0.0-0.2) Segmented Neutrophils % 66 % (35-66) Band Neutrophils % 2 % (0-9) Lymphocytes % 23 % (24-48) Monocytes % 6 % (0-10) Eosinophils % 3 % (0-5) Platelet Estimate Adequate (ADEQUATE) Sodium Level 141 mmol/L (136-145) Potassium Level 3.7 mmol/L (3.5-5.1) Chloride Level 110 mmol/L (98-107) Carbon Dioxide Level 20 mmol/L (21-32) Anion Gap 11 (6-14) Blood Urea Nitrogen 8 mg/dL (7-20) Creatinine 0.9 mg/dL (0.6-1.0) Estimated GFR (Cockcroft-Gault) 81.9 Glucose Level 82 mg/dL (70-99) Calcium Level 8.2 mg/dL (8.5-10.1) Microbiology 07/12/18 Urine Culture - Final, Complete 07/12/18 Urine Culture Result 1 (SHEBA) - Final, Complete Medications Current Medications Sodium Chloride 1,000 ml @ 1,000 mls/hr 1X ONCE IV Last administered on at 09:37; Start 07/12/18 at 09:15; Stop 07/12/18 at 10:14; Status DC Ondansetron HCl (Zofran) 4 mg 1X ONCE IV Last administered on 07/12/18at 09:43 ; Start 07/12/18 at 09:15; Stop 07/12/18 at 09:16; Status DC Dicyclomine HCl (Bentyl) 20 mg 1X ONCE IM Last administered on 07/12/18at 10:44 ; Start 07/12/18 at 09:15; Stop 07/12/18 at 09:16; Status DC Iohexol (Omnipaque 300 Mg/ml) 75 ml 1X ONCE IV Last administered on 07/12/18at 10:30; Start 07/12/18 at 10:30; Stop 07/12/18 at 10:32; Status DC Info (CONTRAST GIVEN -- Rx MONITORING) 1 each PRN DAILY PRN MC SEE COMMENTS; Start 07/12/18 at 10:45; Stop 07/14/18 at 10:44; Status DC Metronidazole 100 ml @ 100 mls/hr 1X ONCE IV Last administered on 07/12/18at 13:10; Start 07/12/18 at 12:30; Stop 07/12/18 at 13:29; Status DC Ciprofloxacin/ Dextrose 200 ml @ 200 mls/hr Q12HR IV Last administered on 07/12at 23:00; Start 07/12/18 at 13:30; Stop 07/13/18 at 08:57; Status DC Morphine Sulfate (Morphine Sulfate) 2 mg PRN Q2HR PRN IV SEVERE PAIN Last administered on 07/13/18at 16:10; Start 07/12/18 at 16:00; Stop 07/17/18 at 09:36 ; Status DC Atorvastatin Calcium (Lipitor) 20 mg HS PO Last administered on 07/19/18at 21:43 ; Start 07/12/18 at 21:00 Cetirizine HCl (ZyrTEC) 10 mg DAILY PO Last administered on 07/20/18at 10:11; Start 07/12/18 at 16:00 Lubiprostone (Amitiza) 8 mcg BID PO Last administered on 07/13/18at 08:23; Start 07/12/18 at 21:00; Stop 07/13/18 at 08:49; Status DC Lisinopril (Prinivil) 10 mg DAILY PO Last administered on 07/19/18at 10:04; Start 07/13/18 at 09:00 Oxcarbazepine (Trileptal) 300 mg BID PO Last administered on 07/13/18at 08:23; Start 07/12/18 at 21:00; Stop 07/13/18 at 11:19; Status DC Polyethylene Glycol (miraLAX PACKET) 17 gm BID PO Last administered on at 09:54; Start 07/12/18 at 21:00 Topiramate (Topamax) 100 mg BID PO Last administered on 07/19/18at 21:43; Start 07/12/18 at 21:00 Hydrochlorothiazide (Microzide) 12.5 mg DAILY PO Last administered on at 11:44; Start 07/13/18 at 09:00; Stop 07/16/18 at 11:39; Status DC Ketorolac Tromethamine (Toradol 30mg Vial) 30 mg PRN Q6HRS PRN IV MILD - MODERATE PAIN; Start 07/12/18 at 20:00; Stop 07/17/18 at 19:59; Status DC Lactobacillus Rhamnosus (Culturelle) 1 cap BID PO Last administered on at 10:11; Start 07/13/18 at 09:00 Ciprofloxacin/ Dextrose 200 ml @ 200 mls/hr Q12H IV Last administered on at 10:49; Start 07/13/18 at 11:00; Stop 07/16/18 at 11:39; Status DC Metronidazole 100 ml @ 100 mls/hr Q8HRS IV Last administered on 07/16/18at 06: 09; Start 07/13/18 at 09:00; Stop 07/16/18 at 11:39; Status DC Potassium Chloride (Klor-Con) 40 meq 1X ONCE PO Last administered on at 09:26; Start 07/13/18 at 08:45; Stop 07/13/18 at 08:52; Status DC Potassium Chloride (Klor-Con) 40 meq DAILYWBKFT PO Last administered on at 10:18; Start 07/14/18 at 08:00 Loperamide HCl (Imodium) 2 mg PRN Q15MIN PRN PO DIARRHEA Last administered on at 09:40; Start 07/13/18 at 08:45 Ondansetron HCl (Zofran) 4 mg PRN Q6HRS PRN IV NAUSEA/VOMITING Last administered on 07/18/18at 01:50; Start 07/13/18 at 08:45 Ondansetron HCl (Zofran Odt) 4 mg PRN Q6HRS PRN PO NAUSEA/VOMITING Last administered on 07/18/18at 14:03; Start 07/13/18 at 08:45 Acetaminophen (Tylenol) 500 mg PRN Q6HRS PRN PO MILD PAIN / TEMP Last administered on 07/17/18at 10:09; Start 07/13/18 at 08:45 Acetaminophen/ Hydrocodone Bitart (Lortab 5/325) 1 tab PRN Q4HRS PRN PO PAIN MODERATE TO SEVERE Last administered on 07/19/18at 21:44; Start 07/13/18 at 08:45 Sodium Chloride 1,000 ml @ 100 mls/hr 1X ONCE IV Last administered on at 09:33; Start 07/13/18 at 09:00; Stop 07/13/18 at 18:59; Status DC Oxcarbazepine (Trileptal) 900 mg BID PO Last administered on 07/20/18at 10:19; Start 07/13/18 at 21:00 Bisacodyl (Dulcolax Tab) 10 mg 1X ONCE PO Last administered on 07/13/18at 17:07 ; Start 07/13/18 at 17:00; Stop 07/13/18 at 17:01; Status DC Polyethylene Glycol (miraLAX Powder BULK BOTTLE) 238 gm 1X ONCE PO Last administered on 07/13/18at 19:35; Start 07/13/18 at 19:00; Stop 07/13/18 at 19:01 ; Status DC Sodium Chloride (Normal Saline Flush) 3 ml QSHIFT PRN IV AFTER MEDS AND BLOOD DRAWS; Start 07/13/18 at 16:45 Sodium Chloride (Normal Saline Flush) 3 ml QSHIFT PRN IV AFTER MEDS AND BLOOD DRAWS; Start 07/13/18 at 16:45; Status UNV Benzocaine (Hurricaine One) 1 spray STK-MED ONCE .ROUTE ; Start 07/14/18 at 07: 58; Stop 07/14/18 at 07:59; Status DC Midazolam HCl (Versed) 5 mg STK-MED ONCE .ROUTE ; Start 07/14/18 at 07:59; Stop 07/14/18 at 08:00; Status DC Fentanyl Citrate (Fentanyl 2ml Vial) 100 mcg STK-MED ONCE .ROUTE ; Start at 07:59; Stop 07/14/18 at 08:00; Status DC Propofol 40 ml @ As Directed STK-MED ONCE IV ; Start 07/14/18 at 08:34; Stop at 08:35; Status DC Lidocaine HCl (Lidocaine Pf 2% Vial) 5 ml STK-MED ONCE .ROUTE ; Start 07/14/18 at 08:34; Stop 07/14/18 at 08:35; Status DC Cefazolin Sodium/ Dextrose 50 ml @ 100 mls/hr 1X PREOP PRN IV continuous improvement coach to OR Last administered on 07/15/18at 09:40; Start 07/15/18 at 06:00; Stop 07/15/18 at 18:00; Status DC Metronidazole 100 ml @ 100 mls/hr 1X PREOP PRN IV continuous improvement coach to OR; Start at 06:00; Stop 07/15/18 at 18:00; Status DC Fentanyl Citrate (Fentanyl 2ml Vial) 25 mcg PRN Q5MIN PRN IV MILD PAIN; Start 07/15/18 at 07:00; Stop 07/15/18 at 21:00; Status DC Fentanyl Citrate (Fentanyl 2ml Vial) 50 mcg PRN Q5MIN PRN IV MODERATE TO SEVERE PAIN Last administered on 07/15/18at 13:55; Start 07/15/18 at 07:00; Stop 07/15/18 at 21:00; Status DC Morphine Sulfate (Morphine Sulfate) 1 mg PRN Q10MIN PRN IV SEVERE PAIN; Start 07/15/18 at 07:00; Stop 07/15/18 at 21:00; Status DC Ringer's Solution 1,000 ml @ 30 mls/hr Q24H IV ; Start 07/15/18 at 07:00; Stop 07/15/18 at 18:59; Status DC Lidocaine HCl (Xylocaine-Mpf 1% 2ml Vial) 2 ml PRN 1X PRN ID IV START; Start at 07:00; Stop 07/15/18 at 21:00; Status DC Hydromorphone HCl (Dilaudid) 0.5 mg PRN Q10MIN PRN IV SEV PAIN, Second choice; Start 07/15/18 at 07:00; Stop 07/15/18 at 21:00; Status DC Prochlorperazine Edisylate (Compazine) 5 mg PACU PRN PRN IV NAUSEA, MRX1; Start 07/15/18 at 07:00; Stop 07/15/18 at 21:00; Status DC Epinephrine HCl (Adrenalin) 30 mg STK-MED ONCE .ROUTE ; Start 07/15/18 at 08:02 ; Stop 07/15/18 at 09:03; Status DC Bupivacaine HCl (Sensorcaine Mpf 0.25%) 30 ml STK-MED ONCE .ROUTE ; Start at 08:02; Stop 07/15/18 at 09:03; Status DC Sevoflurane (Ultane) 90 ml STK-MED ONCE IH ; Start 07/15/18 at 09:12; Stop 07/15 at 09:13; Status DC Midazolam HCl (Versed) 2 mg STK-MED ONCE .ROUTE ; Start 07/15/18 at 09:12; Stop 07/15/18 at 09:13; Status DC Fentanyl Citrate (Fentanyl 2ml Vial) 100 mcg STK-MED ONCE .ROUTE ; Start at 09:12; Stop 07/15/18 at 09:13; Status DC Glycopyrrolate (Robinul) 1 mg STK-MED ONCE .ROUTE ; Start 07/15/18 at 09:13; Stop 07/15/18 at 09:14; Status DC Neostigmine Methylsulfate (Neostigmine Methylsulfate) 5 mg STK-MED ONCE .ROUTE ; Start 07/15/18 at 09:13; Stop 07/15/18 at 09:14; Status DC Rocuronium [place] (Zemuron) 50 mg STK-MED ONCE .ROUTE ; Start 07/15/18 at 09:13 ; Stop 07/15/18 at 09:14; Status DC Dexamethasone Sodium Phosphate (Decadron) 20 mg STK-MED ONCE .ROUTE ; Start at 09:13; Stop 07/15/18 at 09:14; Status DC Ketorolac Tromethamine (Toradol For Or Only) 30 mg STK-MED ONCE INJ ; Start at 09:13; Stop 07/15/18 at 09:14; Status DC Propofol 20 ml @ As Directed STK-MED ONCE IV ; Start 07/15/18 at 09:13; Stop at 09:14; Status DC Ondansetron HCl (Zofran) 4 mg STK-MED ONCE .ROUTE ; Start 07/15/18 at 09:13; Stop 07/15/18 at 09:14; Status DC Phenylephrine HCl (PHENYLEPHRINE in 0.9% NACL PF) 1 mg STK-MED ONCE IV ; Start 07/15/18 at 09:53; Stop 07/15/18 at 09:54; Status DC Fentanyl Citrate (Fentanyl 2ml Vial) 100 mcg STK-MED ONCE .ROUTE ; Start at 10:05; Stop 07/15/18 at 10:06; Status DC Esmolol HCl (Brevibloc) 100 mg STK-MED ONCE IV ; Start 07/15/18 at 10:09; Stop 07/15/18 at 10:10; Status DC Rocuronium [place] (Zemuron) 50 mg STK-MED ONCE .ROUTE ; Start 07/15/18 at 10:10 ; Stop 07/15/18 at 10:11; Status DC Ephedrine Sulfate (ePHEDrine PF IN SALINE SYRINGE) 50 mg STK-MED ONCE IV ; Start 07/15/18 at 11:02; Stop 07/15/18 at 11:03; Status DC Fentanyl Citrate (Fentanyl 2ml Vial) 100 mcg STK-MED ONCE .ROUTE ; Start at 11:09; Stop 07/15/18 at 11:10; Status DC Fentanyl Citrate (Fentanyl 2ml Vial) 100 mcg STK-MED ONCE .ROUTE ; Start at 12:51; Stop 07/15/18 at 12:52; Status DC Morphine Sulfate 30 ml @ 0 mls/hr CONT PRN PRN IV PER PROTOCOL Last administered on 07/16/18at 19:50; Start 07/15/18 at 13:30; Stop 07/17/18 at 09:43 ; Status DC Fentanyl Citrate (Fentanyl 2ml Vial) 100 mcg STK-MED ONCE .ROUTE ; Start at 13:34; Stop 07/15/18 at 13:35; Status DC Throat Lozenges (Chloraseptic) 1 spray PRN Q3HRS PRN PO SORE THROAT Last administered on 07/15/18at 21:55; Start 07/15/18 at 21:45 Sodium Chloride 1,000 ml @ 1,000 mls/hr 1X ONCE IV Last administered on at 03:45; Start 07/16/18 at 03:45; Stop 07/16/18 at 04:44; Status DC Sodium Chloride 1,000 ml @ 125 mls/hr 1X ONCE IV ; Start 07/16/18 at 04:45; Stop 07/16/18 at 12:44; Status Cancel Sodium Chloride 1,000 ml @ 125 mls/hr Q8H IV Last administered on 07/20/18at 10 :04; Start 07/16/18 at 05:00 Enoxaparin Sodium (Lovenox 40mg Syringe) 40 mg Q24H SQ Last administered on at 13:42; Start 07/16/18 at 10:00; Stop 07/19/18 at 14:34; Status DC Albuterol/ Ipratropium (Duoneb) 3 ml RTQID NEB Last administered on 07/20/18at 10:55; Start 07/16/18 at 12:00 Albuterol Sulfate (Ventolin Neb Soln) 2.5 mg PRN Q4HRS PRN NEB SHORTNESS OF BREATH Last administered on 07/18/18at 05:10; Start 07/16/18 at 11:45 Al Hydroxide/Mg Hydroxide (Mylanta Plus Xs) 30 ml PRN Q2HR PRN PO HEARTBURN / GAS; Start 07/16/18 at 22:00; Stop 07/16/18 at 22:00; Status DC Famotidine (Pepcid) 20 mg QHS PO ; Start 07/17/18 at 21:00; Stop 07/17/18 at 21: 00; Status DC Famotidine (Pepcid) 20 mg 1X ONCE PO ; Start 07/16/18 at 22:00; Stop 07/16/18 at 22:00; Status DC Famotidine (Pepcid Vial) 20 mg QHS IVP Last administered on 07/17/18at 21:16; Start 07/17/18 at 21:00; Stop 07/18/18 at 08:21; Status DC Famotidine (Pepcid Vial) 20 mg 1X ONCE IVP Last administered on 07/16/18at 22: 38; Start 07/16/18 at 22:30; Stop 07/16/18 at 22:31; Status DC Iron Sucrose 200 mg/Sodium Chloride 110 ml @ 55 mls/hr DAILY IV Last administered on 07/20/18at 10:04; Start 07/17/18 at 12:30; Stop 07/21/18 at 12:29 Calcium Carbonate/ Glycine (Tums) 500 mg PRN AFTMEALHC PRN PO INDIGESTION Last administered on 07/18/18at 16:30; Start 07/17/18 at 21:15 Iohexol (Omnipaque 300 Mg/ml) 75 ml 1X ONCE IV Last administered on 07/18/18at 08:15; Start 07/18/18 at 08:15; Stop 07/18/18 at 08:16; Status DC Info (CONTRAST GIVEN -- Rx MONITORING) 1 each PRN DAILY PRN MC SEE COMMENTS; Start 07/18/18 at 08:15; Stop 07/20/18 at 08:14; Status DC Famotidine (Pepcid Vial) 20 mg BID IVP Last administered on 07/20/18at 10:08; Start 07/18/18 at 09:00 Multi-Ingredient Mouthwash/Gargle (Gi Cocktail) 20 ml PRN QID PRN PO CHEST PAIN Last administered on 07/18/18at 13:57; Start 07/18/18 at 12:00; Stop at 13:11; Status DC Enoxaparin Sodium (Lovenox 40mg Syringe) 40 mg Q12HR SQ Last administered on at 10:20; Start 07/19/18 at 21:00 Active Scripts Active Reported Advair 250-50 Diskus (Fluticasone/Salmeterol) 1 Each Disk.w.dev 1 Puff IH BID Proair Hfa Inhaler (Albuterol Sulfate) 8.5 Gm Hfa.aer.ad 1 Puff INH PRN Q6HRS PRN Amitiza (Lubiprostone) 8 Mcg Capsule 1 Cap PO BID Miralax (Polyethylene Glycol 3350) 17 Gm Powd.pack 1 Packet PO BID Zyrtec (Cetirizine Hcl) 10 Mg Tablet 1 Tab PO DAILY Atorvastatin Calcium 20 Mg Tablet 20 Mg PO HS Topiramate 100 Mg Tablet 1 Tab PO BID Oxcarbazepine 300 Mg Tablet 1 Tab PO BID Lisinopril-Hctz 10-12.5 Mg Tab (Lisinopril/Hydrochlorothiazide) 1 Each Tablet 1 Tab PO DAILY Vitals/I & O Vital Sign - Last 24 Hours 07/19/18 07/19/18 07/19/18 07/19/18 14:52 15:21 19:00 20:10 Temp 97.6 98.4 97.6 98.4 Pulse 94 84 Resp 16 18 B/P (MAP) 116/69 (85) 113/79 (90) Pulse Ox 96 98 O2 Delivery Room Air Room Air Room Air Room Air 07/19/18 07/19/18 07/19/18 07/19/18 20:20 21:44 22:45 23:00 Temp 98.4 98.4 Pulse 81 Resp 16 18 18 B/P (MAP) 120/77 (91) Pulse Ox 99 97 O2 Delivery Room Air Room Air Room Air Room Air 07/20/18 07/20/18 07/20/18 07/20/18 03:00 06:58 07:00 10:56 Temp 98.6 97.4 98.6 97.4 Pulse 90 92 Resp 18 16 B/P (MAP) 127/80 (96) 137/91 (106) Pulse Ox 95 100 98 O2 Delivery Room Air Room Air Room Air Room Air 07/20/18 11:00 Temp 97.9 97.9 Pulse 89 Resp 16 B/P (MAP) 121/76 (91) Pulse Ox 100 O2 Delivery Room Air Intake and Output 07/19/18 07/19/18 07/20/18 15:00 23:00 07:00 Intake Total 400 ml 2040 ml Output Total 300 ml Balance 100 ml 2040 ml KAREN JORDAN MD Jul 20, 2018 14:16
--- NOTE | 2018-07-20 14:30 | PDOC ---
PROGRESS NOTES Assessment Assessment Confusional episode. Seizure like episode. UTI. Cecal adenocarcinoma, s/p right colectomy. Abdominal pain. Leukocytosis. Cholelithiasis. Anemia. HLD. Obesity. RECOMMENDATIONS/PLAN: Continue Trileptal. Continue Topamax 100 mg bid. Continue Lipitor HS. OT/PT. EEG on 07/17/18: Normal study. HISTORY OF THE PRESENT ILLNESS: 47-y-old AA female patient with above medical diseases has been having symptoms of abdominal pain, vomiting and diarrhea for admission. She had Hx of seizure many years ago, but was seizure free for several years. She had episodes of confusions and suspected possible seizures, so Neurology was requested for consultation. No shaking, jerking or magui movements. Past Medical History Cardiovascular: HTN, Hyperlipidemia Pulmonary: Asthma CENTRAL NERVOUS SYSTEM: Seizure Past Surgical History Family History Diabetes Social History Smoking <1 pack per day ALCOHOL: none Drugs: None Lives: with Family ALLERGY: Reviewed. MEDICATIONS: Refer to MAR REVIEW OF SYSTEMS: Constitutional: Obesity. Head: No traumatic brain or head injury. Skin: No edema, or rash. Ear: No infection. Eyes: No vision loss or color blindness. Nose: No bleeding or purulent discharges. Hearing: No hearing decrease. Neck: No injury. Breast: No history of cancer, masses,or discharges. Cardiac: HTN, HLD. Pulmonary: No COPD. GI: Possible malignant colonic mass this time. Urinary/genital: UTI. Endocrinologic: Obesity. Skeletomuscular: No muscular atrophy, deformity. Neurological: see HP. Psychiatric: Substance use/abuse. Otherwise, not [id number] review of systems. PHYSICAL EXAMINATION: General appearance is in subacute distress. HEENT: Normocephalic and nontraumatic. Eyes, nose, ears, and throat are unremarkable. Neck is supple. No lymphadenopathy. No bruits are heard over the carotid artery. No crepitus. Cardiovascular: S1, S2, regular rate and rhythm. Pulmonary: Clear to auscultation bilaterally. Abdomen: Bowel sounds are positive. Extremities: No rash, lesions, or edema. No restriction of range of motion NEUROLOGICAL EXAMINATION: Alert Oriented to time, place and person. PERRL. EOMI. CN: no focal findings. Muscle tone: within normal. Muscle strength: 5 DTR: 2 Plantar reflex: Flexor response bilaterally Gait: not examined in bed. Sensory exam: no abnormal findings. No cerebellar signs elicited. F-T-N test accurate. Objective Objective Vital Signs Date Time Temp Pulse Resp B/P (MAP) Pulse Ox O2 Delivery O2 Flow Rate FiO2 07/20/18 11:00 97.9 89 16 121/76 (91) 100 Room Air 97.9 07/19/18 07:15 2.0 Intake and Output 07/20/18 07:00 Intake Total 2440 ml Output Total 300 ml Balance 2140 ml Intake Oral 850 ml IV Total 960 ml Other 630 ml Output Urine Total 200 ml Stool Total 100 ml # Voids 3 # Bowel Movements 1 Vitals Signs Vitals VS - Last 72 Hours, by Label Date Time Temp Pulse Resp B/P (MAP) Pulse Ox O2 Delivery O2 Flow Rate FiO2 07/20/18 11:00 97.9 89 16 121/76 (91) 100 Room Air 97.9 07/20/18 10:56 Room Air 07/20/18 07:00 97.4 92 16 137/91 (106) 98 Room Air 97.4 07/20/18 06:58 100 Room Air 07/20/18 03:00 98.6 90 18 127/80 (96) 95 Room Air 98.6 07/19/18 23:00 98.4 81 18 120/77 (91) 97 Room Air 98.4 07/19/18 22:45 18 Room Air 07/19/18 21:44 16 Room Air 07/19/18 20:20 99 Room Air 07/19/18 20:10 Room Air 07/19/18 19:00 98.4 84 18 113/79 (90) 98 Room Air 98.4 07/19/18 15:21 97.6 94 16 116/69 (85) 96 Room Air 97.6 07/19/18 14:52 Room Air 07/19/18 13:43 22 Room Air 07/19/18 11:00 98.3 90 16 116/69 (85) 97 Room Air 98.3 07/19/18 10:53 Room Air 07/19/18 10:04 89 123/77 07/19/18 08:00 Room Air 07/19/18 07:15 100 Nasal Cannula 2.0 07/19/18 07:00 97.4 89 16 123/77 (92) 99 97.4 Laboratory Laboratory Laboratory Tests Test 07/20/18 04:15 White Blood Count 10.3 x10^3/uL (4.0-11.0) Red Blood Count 3.56 x10^6/uL (3.50-5.40) Hemoglobin 9.5 g/dL (12.0-15.5) Hematocrit 28.3 % (36.0-47.0) Mean Corpuscular Volume 80 fL (79-100) Mean Corpuscular Hemoglobin 27 pg (25-35) Mean Corpuscular Hemoglobin Concent 33 g/dL (31-37) Red Cell Distribution Width 18.3 % (11.5-14.5) Platelet Count 289 x10^3/uL (140-400) Neutrophils (%) (Auto) 74 % (31-73) Lymphocytes (%) (Auto) 16 % (24-48) Monocytes (%) (Auto) 6 % (0-9) Eosinophils (%) (Auto) 4 % (0-3) Basophils (%) (Auto) 1 % (0-3) Neutrophils # (Auto) 7.6 x10^3uL (1.8-7.7) Lymphocytes # (Auto) 1.7 x10^3/uL (1.0-4.8) Monocytes # (Auto) 0.6 x10^3/uL (0.0-1.1) Eosinophils # (Auto) 0.4 x10^3/uL (0.0-0.7) Basophils # (Auto) 0.0 x10^3/uL (0.0-0.2) Segmented Neutrophils % 66 % (35-66) Band Neutrophils % 2 % (0-9) Lymphocytes % 23 % (24-48) Monocytes % 6 % (0-10) Eosinophils % 3 % (0-5) Platelet Estimate Adequate (ADEQUATE) Sodium Level 141 mmol/L (136-145) Potassium Level 3.7 mmol/L (3.5-5.1) Chloride Level 110 mmol/L (98-107) Carbon Dioxide Level 20 mmol/L (21-32) Anion Gap 11 (6-14) Blood Urea Nitrogen 8 mg/dL (7-20) Creatinine 0.9 mg/dL (0.6-1.0) Estimated GFR (Cockcroft-Gault) 81.9 Glucose Level 82 mg/dL (70-99) Calcium Level 8.2 mg/dL (8.5-10.1) Microbiology 07/12/18 Urine Culture - Final, Complete 07/12/18 Urine Culture Result 1 (SHEBA) - Final, Complete Medication Medications Current Medications Enoxaparin Sodium (Lovenox 40mg Syringe) 40 mg Q12HR SQ Last administered on at 10:20; Start 07/19/18 at 21:00 Comment Review of Relevant I have reviewed the following items dawson (where applicable) has been applied. BERNARD ARREAGA MD Jul 20, 2018 14:30
[2018-07-20 14:37] LABS: BACTERIA,URINE MODERATE /HPF (0-FEW); RBC,URINE OCC /HPF (0-2); SQUAMOUS EPITHELIAL CELL,UR MANY /LPF
[2018-07-20 14:38] LABS: YEAST,URINE PRESENT /HPF
[2018-07-20 15:00] VITALS: BP 136/87
[2018-07-20 19:00] VITALS: BP 127/88
[2018-07-20] MEDS: ATORVASTATIN CALCIUM 20 MG TABLET PO SCH (20:45)
[2018-07-20 22:54] VITALS: BP 154/99
[2018-07-21] MEDS: HYDROcodone/APAP 5/325MG 1 TAB TABLET PO PRN ×2 (02:14→16:55)
[2018-07-21 03:00] VITALS: BP 134/92
[2018-07-21] MEDS: ALBUTEROL SULFATE 2.5 MG/3 ML NEBU. NEB PRN (03:55)
[2018-07-21 07:00] VITALS: BP 140/95
[2018-07-21] MEDS: IPRATRPIUM/ALBUTEROL 0.5/2.5MG 3 ML NEBU. NEB SCH ×4 (07:14→20:25)
[2018-07-21] MEDS: ONDANSETRON PF 4 MG/2 ML VIAL. IV PRN (07:41)
[2018-07-21] MEDS: FAMOTIDINE 20 MG/2 ML VIAL IVP SCH (07:41)
--- NOTE | 2018-07-21 08:33 | PDOC ---
ISAAC COLE TALENT ACQUISITION ADMINISTRATOR 07/21/18 0833: SURGICAL PROGRESS NOTE Subjective a little nausea this AM, not taking much to eat yet this AM + stools Vital Signs Vital Signs Date Time Temp Pulse Resp B/P (MAP) Pulse Ox O2 Delivery O2 Flow Rate FiO2 07/21/18 07:21 95 Room Air 07/21/18 03:14 20 07/21/18 03:00 98.4 94 134/92 (106) 98.4 07/21/18 02:14 2.0 I&O Intake and Output 07/21/18 07:00 Intake Total 2020 ml Balance 2020 ml Intake Oral 200 ml IV Total 745 ml Other 1075 ml # Voids 7 # Bowel Movements 4 General: Alert, Oriented X3, Cooperative, No acute distress Abdomen: Soft, Other (dressing dry, binder in place) Labs Laboratory Tests Test 07/20/18 04:15 07/20/18 13:20 White Blood Count 10.3 x10^3/uL (4.0-11.0) Red Blood Count 3.56 x10^6/uL (3.50-5.40) Hemoglobin 9.5 g/dL (12.0-15.5) Hematocrit 28.3 % (36.0-47.0) Mean Corpuscular Volume 80 fL (79-100) Mean Corpuscular Hemoglobin 27 pg (25-35) Mean Corpuscular Hemoglobin Concent 33 g/dL (31-37) Red Cell Distribution Width 18.3 % (11.5-14.5) Platelet Count 289 x10^3/uL (140-400) Neutrophils (%) (Auto) 74 % (31-73) Lymphocytes (%) (Auto) 16 % (24-48) Monocytes (%) (Auto) 6 % (0-9) Eosinophils (%) (Auto) 4 % (0-3) Basophils (%) (Auto) 1 % (0-3) Neutrophils # (Auto) 7.6 x10^3uL (1.8-7.7) Lymphocytes # (Auto) 1.7 x10^3/uL (1.0-4.8) Monocytes # (Auto) 0.6 x10^3/uL (0.0-1.1) Eosinophils # (Auto) 0.4 x10^3/uL (0.0-0.7) Basophils # (Auto) 0.0 x10^3/uL (0.0-0.2) Segmented Neutrophils % 66 % (35-66) Band Neutrophils % 2 % (0-9) Lymphocytes % 23 % (24-48) Monocytes % 6 % (0-10) Eosinophils % 3 % (0-5) Platelet Estimate Adequate (ADEQUATE) Sodium Level 141 mmol/L (136-145) Potassium Level 3.7 mmol/L (3.5-5.1) Chloride Level 110 mmol/L (98-107) Carbon Dioxide Level 20 mmol/L (21-32) Anion Gap 11 (6-14) Blood Urea Nitrogen 8 mg/dL (7-20) Creatinine 0.9 mg/dL (0.6-1.0) Estimated GFR (Cockcroft-Gault) 81.9 Glucose Level 82 mg/dL (70-99) Calcium Level 8.2 mg/dL (8.5-10.1) Urine Collection Type Unknown Urine Color Yellow Urine Clarity Clear Urine pH 5.5 Urine Specific [place] 1.020 Urine Protein Negative mg/dL (NEG-TRACE) Urine Glucose (UA) Negative mg/dL (NEG) Urine Ketones (Stick) Trace mg/dL (NEG) Urine Blood Trace (NEG) Urine Nitrite Negative (NEG) Urine Bilirubin Negative (NEG) Urine Urobilinogen Dipstick 0.2 mg/dL (0.2 mg/dL) Urine Leukocyte Esterase Moderate (NEG) Urine RBC Occ /HPF (0-2) Urine WBC 1-4 /HPF (0-4) Urine Squamous Epithelial Cells Many /LPF Urine Bacteria Moderate /HPF (0-FEW) Urine Mucus Marked /LPF Urine Yeast Present /HPF Laboratory Tests Test 07/20/18 13:20 Urine Collection Type Unknown Urine Color Yellow Urine Clarity Clear Urine pH 5.5 Urine Specific [place] 1.020 Urine Protein Negative mg/dL (NEG-TRACE) Urine Glucose (UA) Negative mg/dL (NEG) Urine Ketones (Stick) Trace mg/dL (NEG) Urine Blood Trace (NEG) Urine Nitrite Negative (NEG) Urine Bilirubin Negative (NEG) Urine Urobilinogen Dipstick 0.2 mg/dL (0.2 mg/dL) Urine Leukocyte Esterase Moderate (NEG) Urine RBC Occ /HPF (0-2) Urine WBC 1-4 /HPF (0-4) Urine Squamous Epithelial Cells Many /LPF Urine Bacteria Moderate /HPF (0-FEW) Urine Mucus Marked /LPF Urine Yeast Present /HPF Problem List Problems Medical Problems: (1) Abdominal pain Status: Acute (2) Bandemia Status: Acute (3) Leukocytosis Status: Acute (4) Nausea vomiting and diarrhea Status: Acute (5) UTI (urinary tract infection) Status: Acute Assessment/Plan s/p colon resection diet as tolerated ROSHAN MANN MD 07/21/184: SURGICAL PROGRESS NOTE Assessment/Plan Agree with above ISAAC COLE APRN Jul 21, 2018 08:33 ROSHAN MANN MD Jul 21, 2018 21:34
--- NOTE | 2018-07-21 08:53 | PDOC ---
SUBJECTIVE Subjective S: s/p CT chest, CEA has not yet been drawn, otherwise doing okay, path still pending O: Physical exam: Gen.: Well-nourished and well-developed, resting in bed Psychiatric: Pleasant mood and affect Labs: Ferritin of 32, iron sat of 17, Hb 9.5 Assessment and Plan: She is a 47-year-old female with colon cancer, resected, formal pathology still pending Colon cancer: CT chest showed SAMM GGO 14 mm, i imagine she will be discussed in tumor Board soon, her CEA has been ordered but not yet drawn, reordered again today, still awaiting final pathology report Anemia: She had a ferritin of 14 in October 2017, with now a ferritin of 32 and iron sat of 17% though TIBC was low, s/p IV Fe beginnng 20 Sep sucrose x 1 course, can recheck levels in a month or so... Tobacco abuse: Highly recommend smoking cessation Cervical intraepithelial neoplasia: She has gynecology follow-up pending DVT prophylaxis: w/ Lovenox Disposition: We'll follow-up with further recommendations based after path is avail, but can follow up as an outpatient as needed if dc'd Thank you kindly, and please do not hesitate to call with further questions. OBJECTIVE Vital Signs Vital Signs Date Time Temp Pulse Resp B/P (MAP) Pulse Ox O2 Delivery O2 Flow Rate FiO2 07/21/18 07:21 95 Room Air 07/21/18 07:00 98.3 97 18 140/95 (110) 97 Room Air 98.3 07/21/18 03:54 Room Air 07/21/18 03:14 20 98 Room Air 07/21/18 03:00 98.4 94 18 134/92 (106) 98 Room Air 98.4 07/21/18 02:14 20 95 Room Air 2.0 07/20/18 22:54 98.4 96 18 154/99 (117) 95 Room Air 98.4 07/20/18 20:00 Room Air 07/20/18 19:43 98 Room Air 07/20/18 19:00 98.9 101 18 127/88 (101) 92 Room Air 98.9 07/20/18 15:00 97.9 93 16 136/87 (103) 99 Room Air 97.9 07/20/18 14:48 Room Air 07/20/18 11:00 97.9 89 16 121/76 (91) 100 Room Air 97.9 07/20/18 10:56 Room Air I & O Intake and Output 07/21/18 07:00 Intake Total 2020 ml Balance 2020 ml Intake Oral 200 ml IV Total 745 ml Other 1075 ml # Voids 7 # Bowel Movements 4 COMMENT Lab Laboratory Tests Test 07/20/18 13:20 Urine Collection Type Unknown Urine Color Yellow Urine Clarity Clear Urine pH 5.5 Urine Specific [place] 1.020 Urine Protein Negative mg/dL (NEG-TRACE) Urine Glucose (UA) Negative mg/dL (NEG) Urine Ketones (Stick) Trace mg/dL (NEG) Urine Blood Trace (NEG) Urine Nitrite Negative (NEG) Urine Bilirubin Negative (NEG) Urine Urobilinogen Dipstick 0.2 mg/dL (0.2 mg/dL) Urine Leukocyte Esterase Moderate (NEG) Urine RBC Occ /HPF (0-2) Urine WBC 1-4 /HPF (0-4) Urine Squamous Epithelial Cells Many /LPF Urine Bacteria Moderate /HPF (0-FEW) Urine Mucus Marked /LPF Urine Yeast Present /HPF PABLO CHOI MD Jul 21, 2018 08:53
[2018-07-21] MEDS: PROCHLORPERAZINE 10 MG/2 ML VIAL. IV PRN ×2 (10:25→17:48)
[2018-07-21] MEDS: IRON SUCROSE COMPLEX 200 MG in IV NORMAL SALINE 100ML 100 ML IV SCH (10:27)
[2018-07-21] MEDS: LACTOBACILLUS RHAMNOSUS GG 1 CAPSULE. PO SCH ×2 (10:30→20:12)
[2018-07-21] MEDS: TOPIRAMATE 25 MG TABLET. PO SCH ×2 (10:30→20:08)
[2018-07-21] MEDS: POTASSIUM CHLORIDE 20 MEQ TABLET.ER. PO SCH (10:31)
[2018-07-21] MEDS: LISINOPRIL 10 MG TABLET PO SCH (10:31)
[2018-07-21] MEDS: CETIRIZINE HCL 10 MG TABLET. PO SCH (10:32)
[2018-07-21] MEDS: ENOXAPARIN 40 MG/0.4 ML SYRINGE. SQ SCH ×2 (10:32→21:00)
[2018-07-21] MEDS: POLYETHYLENE GLYCOL 3350 17 GM PACKET. PO SCH ×2 (10:32→20:12)
[2018-07-21] MEDS: OXcarbazepine 300 MG TABLET PO SCH ×2 (10:34→20:08)
[2018-07-21 11:00] VITALS: BP 141/100
--- NOTE | 2018-07-21 11:38 | PDOC ---
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 Nonobstructing left intrarenal calculi. Enlarged fibroid uterus. Probable renal cysts. asthma HTN morbid obesity h/o seizure AMS at hosp, with MONKEY KEEPER likely gastric bx + h pylori plan: fu wiht sx,off MONKEY KEEPER , advance as tolerated as per sx, change to full liquid dc hctz, monitor bp, lisinopril for now dvt ppx add duoneb, albuterol prn cont seizure meds, neuro consulted for AMS dc abx onco consulted, garsia CT for staging, no obvious mets on image? h pylori treatment defer to GI talked to pt about the path and h pylori, however, pt seems has problem to understand. ok for d/c Saturday History of Present Illness History of Present Illness Out having surgery for colon mass which is a new diagnosis- dx after EGD colonoscopy this admission CAT scan: 1. Mural thickening involving the colon in the ileocecal valve region raising the possibility of colonic malignancy. An inflammatory process cannot be excluded. There is mild associated dilatation of the distal small bowel and mild mesenteric adenopathy at this level. 2. Small amount of free fluid in the pelvis. 3. Cholelithiasis. 4. Nonobstructing left intrarenal calculi. 5. Enlarged fibroid uterus. 6. Probable renal cysts. has 2 times BM 07/17 as per pt very confused 07/16 night, MONKEY KEEPER stopped. pain is ok pt has some dementia or cognitive impairement, no remember what i told her Vitals Vitals Vital Signs Date Time Temp Pulse Resp B/P (MAP) Pulse Ox O2 Delivery O2 Flow Rate FiO2 07/21/18 11:00 98.3 95 18 141/100 (114) 97 Room Air 98.3 07/21/18 02:14 2.0 Physical Exam General: Alert, Oriented X3, Cooperative, No acute distress Heart: Regular rate, Normal S1, Normal S2, No murmurs Lungs: Clear Abdomen: Soft, Other (dressing dry, binder in place) Extremities: No clubbing, No cyanosis Skin: No rashes, No breakdown Labs LABS Laboratory Tests Test 07/20/18 13:20 Urine Collection Type Unknown Urine Color Yellow Urine Clarity Clear Urine pH 5.5 Urine Specific [place] 1.020 Urine Protein Negative mg/dL (NEG-TRACE) Urine Glucose (UA) Negative mg/dL (NEG) Urine Ketones (Stick) Trace mg/dL (NEG) Urine Blood Trace (NEG) Urine Nitrite Negative (NEG) Urine Bilirubin Negative (NEG) Urine Urobilinogen Dipstick 0.2 mg/dL (0.2 mg/dL) Urine Leukocyte Esterase Moderate (NEG) Urine RBC Occ /HPF (0-2) Urine WBC 1-4 /HPF (0-4) Urine Squamous Epithelial Cells Many /LPF Urine Bacteria Moderate /HPF (0-FEW) Urine Mucus Marked /LPF Urine Yeast Present /HPF Assessment and Plan Assessmemt and Plan Problems Medical Problems: (1) Abdominal pain Status: Acute (2) Bandemia Status: Acute (3) Leukocytosis Status: Acute (4) Nausea vomiting and diarrhea Status: Acute (5) UTI (urinary tract infection) Status: Acute Comment Review of Relevant I have reviewed the following items dawson (where applicable) has been applied. Labs Laboratory Tests Test 07/20/18 04:15 07/20/18 13:20 White Blood Count 10.3 x10^3/uL (4.0-11.0) Red Blood Count 3.56 x10^6/uL (3.50-5.40) Hemoglobin 9.5 g/dL (12.0-15.5) Hematocrit 28.3 % (36.0-47.0) Mean Corpuscular Volume 80 fL (79-100) Mean Corpuscular Hemoglobin 27 pg (25-35) Mean Corpuscular Hemoglobin Concent 33 g/dL (31-37) Red Cell Distribution Width 18.3 % (11.5-14.5) Platelet Count 289 x10^3/uL (140-400) Neutrophils (%) (Auto) 74 % (31-73) Lymphocytes (%) (Auto) 16 % (24-48) Monocytes (%) (Auto) 6 % (0-9) Eosinophils (%) (Auto) 4 % (0-3) Basophils (%) (Auto) 1 % (0-3) Neutrophils # (Auto) 7.6 x10^3uL (1.8-7.7) Lymphocytes # (Auto) 1.7 x10^3/uL (1.0-4.8) Monocytes # (Auto) 0.6 x10^3/uL (0.0-1.1) Eosinophils # (Auto) 0.4 x10^3/uL (0.0-0.7) Basophils # (Auto) 0.0 x10^3/uL (0.0-0.2) Segmented Neutrophils % 66 % (35-66) Band Neutrophils % 2 % (0-9) Lymphocytes % 23 % (24-48) Monocytes % 6 % (0-10) Eosinophils % 3 % (0-5) Platelet Estimate Adequate (ADEQUATE) Sodium Level 141 mmol/L (136-145) Potassium Level 3.7 mmol/L (3.5-5.1) Chloride Level 110 mmol/L (98-107) Carbon Dioxide Level 20 mmol/L (21-32) Anion Gap 11 (6-14) Blood Urea Nitrogen 8 mg/dL (7-20) Creatinine 0.9 mg/dL (0.6-1.0) Estimated GFR (Cockcroft-Gault) 81.9 Glucose Level 82 mg/dL (70-99) Calcium Level 8.2 mg/dL (8.5-10.1) Urine Collection Type Unknown Urine Color Yellow Urine Clarity Clear Urine pH 5.5 Urine Specific [place] 1.020 Urine Protein Negative mg/dL (NEG-TRACE) Urine Glucose (UA) Negative mg/dL (NEG) Urine Ketones (Stick) Trace mg/dL (NEG) Urine Blood Trace (NEG) Urine Nitrite Negative (NEG) Urine Bilirubin Negative (NEG) Urine Urobilinogen Dipstick 0.2 mg/dL (0.2 mg/dL) Urine Leukocyte Esterase Moderate (NEG) Urine RBC Occ /HPF (0-2) Urine WBC 1-4 /HPF (0-4) Urine Squamous Epithelial Cells Many /LPF Urine Bacteria Moderate /HPF (0-FEW) Urine Mucus Marked /LPF Urine Yeast Present /HPF Laboratory Tests Test 07/20/18 13:20 Urine Collection Type Unknown Urine Color Yellow Urine Clarity Clear Urine pH 5.5 Urine Specific [place] 1.020 Urine Protein Negative mg/dL (NEG-TRACE) Urine Glucose (UA) Negative mg/dL (NEG) Urine Ketones (Stick) Trace mg/dL (NEG) Urine Blood Trace (NEG) Urine Nitrite Negative (NEG) Urine Bilirubin Negative (NEG) Urine Urobilinogen Dipstick 0.2 mg/dL (0.2 mg/dL) Urine Leukocyte Esterase Moderate (NEG) Urine RBC Occ /HPF (0-2) Urine WBC 1-4 /HPF (0-4) Urine Squamous Epithelial Cells Many /LPF Urine Bacteria Moderate /HPF (0-FEW) Urine Mucus Marked /LPF Urine Yeast Present /HPF Microbiology 07/12/18 Urine Culture - Final, Complete 07/12/18 Urine Culture Result 1 (SHEBA) - Final, Complete Medications Current Medications Sodium Chloride 1,000 ml @ 1,000 mls/hr 1X ONCE IV Last administered on at 09:37; Start 07/12/18 at 09:15; Stop 07/12/18 at 10:14; Status DC Ondansetron HCl (Zofran) 4 mg 1X ONCE IV Last administered on 07/12/18at 09:43 ; Start 07/12/18 at 09:15; Stop 07/12/18 at 09:16; Status DC Dicyclomine HCl (Bentyl) 20 mg 1X ONCE IM Last administered on 07/12/18at 10:44 ; Start 07/12/18 at 09:15; Stop 07/12/18 at 09:16; Status DC Iohexol (Omnipaque 300 Mg/ml) 75 ml 1X ONCE IV Last administered on 07/12/18at 10:30; Start 07/12/18 at 10:30; Stop 07/12/18 at 10:32; Status DC Info (CONTRAST GIVEN -- Rx MONITORING) 1 each PRN DAILY PRN MC SEE COMMENTS; Start 07/12/18 at 10:45; Stop 07/14/18 at 10:44; Status DC Metronidazole 100 ml @ 100 mls/hr 1X ONCE IV Last administered on 07/12/18at 13:10; Start 07/12/18 at 12:30; Stop 07/12/18 at 13:29; Status DC Ciprofloxacin/ Dextrose 200 ml @ 200 mls/hr Q12HR IV Last administered on 07/12at 23:00; Start 07/12/18 at 13:30; Stop 07/13/18 at 08:57; Status DC Morphine Sulfate (Morphine Sulfate) 2 mg PRN Q2HR PRN IV SEVERE PAIN Last administered on 07/13/18at 16:10; Start 07/12/18 at 16:00; Stop 07/17/18 at 09:36 ; Status DC Atorvastatin Calcium (Lipitor) 20 mg HS PO Last administered on 07/20/18at 20:45 ; Start 07/12/18 at 21:00 Cetirizine HCl (ZyrTEC) 10 mg DAILY PO Last administered on 07/21/18at 10:32; Start 07/12/18 at 16:00 Lubiprostone (Amitiza) 8 mcg BID PO Last administered on 07/13/18at 08:23; Start 07/12/18 at 21:00; Stop 07/13/18 at 08:49; Status DC Lisinopril (Prinivil) 10 mg DAILY PO Last administered on 07/21/18 10:31; Start 07/13/18 at 09:00 Oxcarbazepine (Trileptal) 300 mg BID PO Last administered on 07/13/18 08:23; Start 07/12/18 at 21:00; Stop 07/13/18 at 11:19; Status DC Polyethylene Glycol (miraLAX PACKET) 17 gm BID PO Last administered on 10:32; Start 07/12/18 at 21:00 Topiramate (Topamax) 100 mg BID PO Last administered on 07/21/18 10:30; Start 07/12/18 at 21:00 Hydrochlorothiazide (Microzide) 12.5 mg DAILY PO Last administered on at 11:44; Start 07/13/18 at 09:00; Stop 07/16/18 at 11:39; Status DC Ketorolac Tromethamine (Toradol 30mg Vial) 30 mg PRN Q6HRS PRN IV MILD - MODERATE PAIN; Start 07/12/18 at 20:00; Stop 07/17/18 at 19:59; Status DC Lactobacillus Rhamnosus (Culturelle) 1 cap BID PO Last administered on at 10:30; Start 07/13/18 at 09:00 Ciprofloxacin/ Dextrose 200 ml @ 200 mls/hr Q12H IV Last administered on at 10:49; Start 07/13/18 at 11:00; Stop 07/16/18 at 11:39; Status DC Metronidazole 100 ml @ 100 mls/hr Q8HRS IV Last administered on 07/16/18at 06: 09; Start 07/13/18 at 09:00; Stop 07/16/18 at 11:39; Status DC Potassium Chloride (Klor-Con) 40 meq 1X ONCE PO Last administered on 09:26; Start 07/13/18 at 08:45; Stop 07/13/18 at 08:52; Status DC Potassium Chloride (Klor-Con) 40 meq DAILYWBKFT PO Last administered on 10:31; Start 07/14/18 at 08:00 Loperamide HCl (Imodium) 2 mg PRN Q15MIN PRN PO DIARRHEA Last administered on 09:40; Start 07/13/18 at 08:45 Ondansetron HCl (Zofran) 4 mg PRN Q6HRS PRN IV NAUSEA/VOMITING Last administered on 07/21/18 07:41; Start 07/13/18 at 08:45 Ondansetron HCl (Zofran Odt) 4 mg PRN Q6HRS PRN PO NAUSEA/VOMITING Last administered on 07/18/18at 14:03; Start 07/13/18 at 08:45 Acetaminophen (Tylenol) 500 mg PRN Q6HRS PRN PO MILD PAIN / TEMP Last administered on 07/17/18 10:09; Start 07/13/18 at 08:45 Acetaminophen/ Hydrocodone Bitart (Lortab 5/325) 1 tab PRN Q4HRS PRN PO PAIN MODERATE TO SEVERE Last administered on 07/21/18 02:14; Start 07/13/18 at 08:45 Sodium Chloride 1,000 ml @ 100 mls/hr 1X ONCE IV Last administered on 09:33; Start 07/13/18 at 09:00; Stop 07/13/18 at 18:59; Status DC Oxcarbazepine (Trileptal) 900 mg BID PO Last administered on 07/21/18 10:34; Start 07/13/18 at 21:00 Bisacodyl (Dulcolax Tab) 10 mg 1X ONCE PO Last administered on 07/13/18 17:07 ; Start 07/13/18 at 17:00; Stop 07/13/18 at 17:01; Status DC Polyethylene Glycol (miraLAX Powder BULK BOTTLE) 238 gm 1X ONCE PO Last administered on 9/16/18at 19:35; Start 07/13/18 at 19:00; Stop 07/13/18 at 19:01 ; Status DC Sodium Chloride (Normal Saline Flush) 3 ml QSHIFT PRN IV AFTER MEDS AND BLOOD DRAWS; Start 07/13/18 at 16:45 Sodium Chloride (Normal Saline Flush) 3 ml QSHIFT PRN IV AFTER MEDS AND BLOOD DRAWS; Start 07/13/18 at 16:45; Status UNV Benzocaine (Hurricaine One) 1 spray STK-MED ONCE .ROUTE ; Start 07/14/18 at 07: 58; Stop 07/14/18 at 07:59; Status DC Midazolam HCl (Versed) 5 mg STK-MED ONCE .ROUTE ; Start 07/14/18 at 07:59; Stop 07/14/18 at 08:00; Status DC Fentanyl Citrate (Fentanyl 2ml Vial) 100 mcg STK-MED ONCE .ROUTE ; Start at 07:59; Stop 07/14/18 at 08:00; Status DC Propofol 40 ml @ As Directed STK-MED ONCE IV ; Start 07/14/18 at 08:34; Stop at 08:35; Status DC Lidocaine HCl (Lidocaine Pf 2% Vial) 5 ml STK-MED ONCE .ROUTE ; Start 07/14/18 at 08:34; Stop 07/14/18 at 08:35; Status DC Cefazolin Sodium/ Dextrose 50 ml @ 100 mls/hr 1X PREOP PRN IV public relations representative to OR Last administered on 07/15/18at 09:40; Start 07/15/18 at 06:00; Stop 07/15/18 at 18:00; Status DC Metronidazole 100 ml @ 100 mls/hr 1X PREOP PRN IV public relations representative to OR; Start at 06:00; Stop 07/15/18 at 18:00; Status DC Fentanyl Citrate (Fentanyl 2ml Vial) 25 mcg PRN Q5MIN PRN IV MILD PAIN; Start 07/15/18 at 07:00; Stop 07/15/18 at 21:00; Status DC Fentanyl Citrate (Fentanyl 2ml Vial) 50 mcg PRN Q5MIN PRN IV MODERATE TO SEVERE PAIN Last administered on 07/15/18at 13:55; Start 07/15/18 at 07:00; Stop 07/15/18 at 21:00; Status DC Morphine Sulfate (Morphine Sulfate) 1 mg PRN Q10MIN PRN IV SEVERE PAIN; Start 07/15/18 at 07:00; Stop 07/15/18 at 21:00; Status DC Ringer's Solution 1,000 ml @ 30 mls/hr Q24H IV ; Start 07/15/18 at 07:00; Stop 07/15/18 at 18:59; Status DC Lidocaine HCl (Xylocaine-Mpf 1% 2ml Vial) 2 ml PRN 1X PRN ID IV START; Start at 07:00; Stop 07/15/18 at 21:00; Status DC Hydromorphone HCl (Dilaudid) 0.5 mg PRN Q10MIN PRN IV SEV PAIN, Second choice; Start 07/15/18 at 07:00; Stop 07/15/18 at 21:00; Status DC Prochlorperazine Edisylate (Compazine) 5 mg PACU PRN PRN IV NAUSEA, MRX1; Start 07/15/18 at 07:00; Stop 07/15/18 at 21:00; Status DC Epinephrine HCl (Adrenalin) 30 mg STK-MED ONCE .ROUTE ; Start 07/15/18 at 08:02 ; Stop 07/15/18 at 09:03; Status DC Bupivacaine HCl (Sensorcaine Mpf 0.25%) 30 ml STK-MED ONCE .ROUTE ; Start at 08:02; Stop 07/15/18 at 09:03; Status DC Sevoflurane (Ultane) 90 ml STK-MED ONCE IH ; Start 07/15/18 at 09:12; Stop 07/15 at 09:13; Status DC Midazolam HCl (Versed) 2 mg STK-MED ONCE .ROUTE ; Start 07/15/18 at 09:12; Stop 07/15/18 at 09:13; Status DC Fentanyl Citrate (Fentanyl 2ml Vial) 100 mcg STK-MED ONCE .ROUTE ; Start at 09:12; Stop 07/15/18 at 09:13; Status DC Glycopyrrolate (Robinul) 1 mg STK-MED ONCE .ROUTE ; Start 07/15/18 at 09:13; Stop 07/15/18 at 09:14; Status DC Neostigmine Methylsulfate (Neostigmine Methylsulfate) 5 mg STK-MED ONCE .ROUTE ; Start 07/15/18 at 09:13; Stop 07/15/18 at 09:14; Status DC Rocuronium [place] (Zemuron) 50 mg STK-MED ONCE .ROUTE ; Start 07/15/18 at 09:13 ; Stop 07/15/18 at 09:14; Status DC Dexamethasone Sodium Phosphate (Decadron) 20 mg STK-MED ONCE .ROUTE ; Start at 09:13; Stop 07/15/18 at 09:14; Status DC Ketorolac Tromethamine (Toradol For Or Only) 30 mg STK-MED ONCE INJ ; Start at 09:13; Stop 07/15/18 at 09:14; Status DC Propofol 20 ml @ As Directed STK-MED ONCE IV ; Start 07/15/18 at 09:13; Stop at 09:14; Status DC Ondansetron HCl (Zofran) 4 mg STK-MED ONCE .ROUTE ; Start 07/15/18 at 09:13; Stop 07/15/18 at 09:14; Status DC Phenylephrine HCl (PHENYLEPHRINE in 0.9% NACL PF) 1 mg STK-MED ONCE IV ; Start 07/15/18 at 09:53; Stop 07/15/18 at 09:54; Status DC Fentanyl Citrate (Fentanyl 2ml Vial) 100 mcg STK-MED ONCE .ROUTE ; Start at 10:05; Stop 07/15/18 at 10:06; Status DC Esmolol HCl (Brevibloc) 100 mg STK-MED ONCE IV ; Start 07/15/18 at 10:09; Stop 07/15/18 at 10:10; Status DC Rocuronium [place] (Zemuron) 50 mg STK-MED ONCE .ROUTE ; Start 07/15/18 at 10:10 ; Stop 07/15/18 at 10:11; Status DC Ephedrine Sulfate (ePHEDrine PF IN SALINE SYRINGE) 50 mg STK-MED ONCE IV ; Start 07/15/18 at 11:02; Stop 07/15/18 at 11:03; Status DC Fentanyl Citrate (Fentanyl 2ml Vial) 100 mcg STK-MED ONCE .ROUTE ; Start at 11:09; Stop 07/15/18 at 11:10; Status DC Fentanyl Citrate (Fentanyl 2ml Vial) 100 mcg STK-MED ONCE .ROUTE ; Start at 12:51; Stop 07/15/18 at 12:52; Status DC Morphine Sulfate 30 ml @ 0 mls/hr CONT PRN PRN IV PER PROTOCOL Last administered on 07/16/18at 19:50; Start 07/15/18 at 13:30; Stop 07/17/18 at 09:43 ; Status DC Fentanyl Citrate (Fentanyl 2ml Vial) 100 mcg STK-MED ONCE .ROUTE ; Start at 13:34; Stop 07/15/18 at 13:35; Status DC Throat Lozenges (Chloraseptic) 1 spray PRN Q3HRS PRN PO SORE THROAT Last administered on 07/15/18at 21:55; Start 07/15/18 at 21:45 Sodium Chloride 1,000 ml @ 1,000 mls/hr 1X ONCE IV Last administered on at 03:45; Start 07/16/18 at 03:45; Stop 07/16/18 at 04:44; Status DC Sodium Chloride 1,000 ml @ 125 mls/hr 1X ONCE IV ; Start 07/16/18 at 04:45; Stop 07/16/18 at 12:44; Status Cancel Sodium Chloride 1,000 ml @ 125 mls/hr Q8H IV Last administered on 07/20/18at 10 :04; Start 07/16/18 at 05:00; Stop 07/20/18 at 14:15; Status DC Enoxaparin Sodium (Lovenox 40mg Syringe) 40 mg Q24H SQ Last administered on at 13:42; Start 07/16/18 at 10:00; Stop 07/19/18 at 14:34; Status DC Albuterol/ Ipratropium (Duoneb) 3 ml RTQID NEB Last administered on 07/21/18at 11:23; Start 07/16/18 at 12:00 Albuterol Sulfate (Ventolin Neb Soln) 2.5 mg PRN Q4HRS PRN NEB SHORTNESS OF BREATH Last administered on 07/21/18at 03:55; Start 07/16/18 at 11:45 Al Hydroxide/Mg Hydroxide (Mylanta Plus Xs) 30 ml PRN Q2HR PRN PO HEARTBURN / GAS; Start 07/16/18 at 22:00; Stop 07/16/18 at 22:00; Status DC Famotidine (Pepcid) 20 mg QHS PO ; Start 07/17/18 at 21:00; Stop 07/17/18 at 21: 00; Status DC Famotidine (Pepcid) 20 mg 1X ONCE PO ; Start 07/16/18 at 22:00; Stop 07/16/18 at 22:00; Status DC Famotidine (Pepcid Vial) 20 mg QHS IVP Last administered on 07/17/18at 21:16; Start 07/17/18 at 21:00; Stop 07/18/18 at 08:21; Status DC Famotidine (Pepcid Vial) 20 mg 1X ONCE IVP Last administered on 07/16/18at 22: 38; Start 07/16/18 at 22:30; Stop 07/16/18 at 22:31; Status DC Iron Sucrose 200 mg/Sodium Chloride 110 ml @ 55 mls/hr DAILY IV Last administered on 07/21/18at 10:27; Start 07/17/18 at 12:30; Stop 07/21/18 at 12:29 Calcium Carbonate/ Glycine (Tums) 500 mg PRN AFTMEALHC PRN PO INDIGESTION Last administered on 07/18/18at 16:30; Start 07/17/18 at 21:15 Iohexol (Omnipaque 300 Mg/ml) 75 ml 1X ONCE IV Last administered on 07/18/18at 08:15; Start 07/18/18 at 08:15; Stop 07/18/18 at 08:16; Status DC Info (CONTRAST GIVEN -- Rx MONITORING) 1 each PRN DAILY PRN MC SEE COMMENTS; Start 07/18/18 at 08:15; Stop 07/20/18 at 08:14; Status DC Famotidine (Pepcid Vial) 20 mg BID IVP Last administered on 07/21/18at 07:41; Start 07/18/18 at 09:00 Multi-Ingredient Mouthwash/Gargle (Gi Cocktail) 20 ml PRN QID PRN PO CHEST PAIN Last administered on 07/18/18at 13:57; Start 07/18/18 at 12:00; Stop at 13:11; Status DC Enoxaparin Sodium (Lovenox 40mg Syringe) 40 mg Q12HR SQ Last administered on at 10:32; Start 07/19/18 at 21:00 Prochlorperazine Edisylate (Compazine) 10 mg PRN Q6HRS PRN IV NAUSEA/VOMITING Last administered on 07/21/18at 10:25; Start 07/21/18 at 10:15 Active Scripts Active Reported Advair 250-50 Diskus (Fluticasone/Salmeterol) 1 Each Disk.w.dev 1 Puff IH BID Proair Hfa Inhaler (Albuterol Sulfate) 8.5 Gm Hfa.aer.ad 1 Puff INH PRN Q6HRS PRN Amitiza (Lubiprostone) 8 Mcg Capsule 1 Cap PO BID Miralax (Polyethylene Glycol 3350) 17 Gm Powd.pack 1 Packet PO BID Zyrtec (Cetirizine Hcl) 10 Mg Tablet 1 Tab PO DAILY Atorvastatin Calcium 20 Mg Tablet 20 Mg PO HS Topiramate 100 Mg Tablet 1 Tab PO BID Oxcarbazepine 300 Mg Tablet 1 Tab PO BID Lisinopril-Hctz 10-12.5 Mg Tab (Lisinopril/Hydrochlorothiazide) 1 Each Tablet 1 Tab PO DAILY Vitals/I & O Vital Sign - Last 24 Hours 07/20/18 07/20/18 07/20/18 07/20/18 14:48 15:00 19:00 19:43 Temp 97.9 98.9 97.9 98.9 Pulse 93 101 Resp 16 18 B/P (MAP) 136/87 (103) 127/88 (101) Pulse Ox 99 92 98 O2 Delivery Room Air Room Air Room Air Room Air 07/20/18 07/20/18 07/21/18 07/21/18 20:00 22:54 02:14 03:00 Temp 98.4 98.4 98.4 98.4 Pulse 96 94 Resp 18 20 18 B/P (MAP) 154/99 (117) 134/92 (106) Pulse Ox 95 95 98 O2 Delivery Room Air Room Air Room Air Room Air O2 Flow Rate 2.0 07/21/18 07/21/18 07/21/18 07/21/18 03:14 03:54 07:00 07:21 Temp 98.3 98.3 Pulse 97 Resp 20 18 B/P (MAP) 140/95 (110) Pulse Ox 98 97 95 O2 Delivery Room Air Room Air Room Air Room Air 07/21/18 07/21/18 07/21/18 08:00 10:31 11:00 Temp 98.3 98.3 Pulse 97 95 Resp 18 B/P (MAP) 140/95 141/100 (114) Pulse Ox 97 O2 Delivery Room Air Room Air Intake and Output 07/20/18 07/20/18 07/21/18 15:00 23:00 07:00 Intake Total 2020 ml Balance 2020 ml RAJAT OROURKE MD Jul 21, 2018 11:38
--- NOTE | 2018-07-21 11:58 | PDOC ---
Subjective: Subjective: Asked how she's feeling, shrugs. Tolerating PO but has some nausea. Loose stools. Family wonders why pathology results taking so long. Objective: Vital Signs: Vital Signs Date Time Temp Pulse Resp B/P (MAP) Pulse Ox O2 Delivery O2 Flow Rate FiO2 07/21/18 11:00 98.3 95 18 141/100 (114) 97 Room Air 98.3 07/21/18 02:14 2.0 Labs: Laboratory Tests Test 07/20/18 13:20 Urine Collection Type Unknown Urine Color Yellow Urine Clarity Clear Urine pH 5.5 Urine Specific [place] 1.020 Urine Protein Negative mg/dL Urine Glucose (UA) Negative mg/dL Urine Ketones (Stick) Trace mg/dL Urine Blood Trace Urine Nitrite Negative Urine Bilirubin Negative Urine Urobilinogen Dipstick 0.2 mg/dL Urine Leukocyte Esterase Moderate Urine RBC Occ /HPF Urine WBC 1-4 /HPF Urine Squamous Epithelial Cells Many /LPF Urine Bacteria Moderate /HPF Urine Mucus Marked /LPF Urine Yeast Present /HPF PE: GEN: NAD LUNGS: CTAB HEART: RRR ABD: soft NEURO/PSYCH: A & O 3 A/P: Cecal adenocarcinoma s/p right colon resection - surgical path pending -CEA 4.9 H. pylori gastritis Nausea - on IV H2 yaw, also eating Anemia - on IV iron -- I called the lab - resection pathology not complete though could be done later today (but not sure). Start H. pylori treatment since remains inpt - can finish as outpt. She c/o loose stools - looks like receiving Miralax BID - could reduce to QD. Update - possible DC today - I left H. pylori Rx (generic Prevpac) w/ [facility]. ARVIND HUERTA Jul 21, 2018 11:58
--- NOTE | 2018-07-21 12:02 | PDOC ---
PROGRESS NOTES Assessment Problems Medical Problems: (1) Abdominal pain Status: Acute (2) Bandemia Status: Acute (3) Leukocytosis Status: Acute (4) Nausea vomiting and diarrhea Status: Acute (5) UTI (urinary tract infection) Status: Acute Epilepsy, follows at , possible seizure UTI. Cecal adenocarcinoma, s/p right colectomy. Abdominal pain. Leukocytosis. Cholelithiasis. Anemia. HLD. Obesity. Plan Continue Trileptal. Continue Topamax 100 mg bid. Follow up with her neurologist Okay for discharge from neurological perspective Subjective No complaints, wants to go home Objective Vital Signs Date Time Temp Pulse Resp B/P (MAP) Pulse Ox O2 Delivery O2 Flow Rate FiO2 07/21/18 11:00 98.3 95 18 141/100 (114) 97 Room Air 98.3 07/21/18 02:14 2.0 Intake and Output 07/21/18 07:00 Intake Total 2020 ml Balance 2020 ml Intake Oral 200 ml IV Total 745 ml Other 1075 ml # Voids 7 # Bowel Movements 4 PHYSICAL EXAM Alert. Oriented to time, place and person. PERRL. EOMI. CN: no focal findings. Muscle tone: normal. Muscle strength: 5/5 DTR: 2+ Plantar reflex: flexor Gait: normal. Sensory exam: no abnormal findings. No cerebellar signs elicited. Review of Relevant I have reviewed the following items dawson (where applicable) has been applied. Labs Laboratory Tests Test 07/20/18 04:15 07/20/18 13:20 White Blood Count 10.3 x10^3/uL (4.0-11.0) Red Blood Count 3.56 x10^6/uL (3.50-5.40) Hemoglobin 9.5 g/dL (12.0-15.5) Hematocrit 28.3 % (36.0-47.0) Mean Corpuscular Volume 80 fL (79-100) Mean Corpuscular Hemoglobin 27 pg (25-35) Mean Corpuscular Hemoglobin Concent 33 g/dL (31-37) Red Cell Distribution Width 18.3 % (11.5-14.5) Platelet Count 289 x10^3/uL (140-400) Neutrophils (%) (Auto) 74 % (31-73) Lymphocytes (%) (Auto) 16 % (24-48) Monocytes (%) (Auto) 6 % (0-9) Eosinophils (%) (Auto) 4 % (0-3) Basophils (%) (Auto) 1 % (0-3) Neutrophils # (Auto) 7.6 x10^3uL (1.8-7.7) Lymphocytes # (Auto) 1.7 x10^3/uL (1.0-4.8) Monocytes # (Auto) 0.6 x10^3/uL (0.0-1.1) Eosinophils # (Auto) 0.4 x10^3/uL (0.0-0.7) Basophils # (Auto) 0.0 x10^3/uL (0.0-0.2) Segmented Neutrophils % 66 % (35-66) Band Neutrophils % 2 % (0-9) Lymphocytes % 23 % (24-48) Monocytes % 6 % (0-10) Eosinophils % 3 % (0-5) Platelet Estimate Adequate (ADEQUATE) Sodium Level 141 mmol/L (136-145) Potassium Level 3.7 mmol/L (3.5-5.1) Chloride Level 110 mmol/L (98-107) Carbon Dioxide Level 20 mmol/L (21-32) Anion Gap 11 (6-14) Blood Urea Nitrogen 8 mg/dL (7-20) Creatinine 0.9 mg/dL (0.6-1.0) Estimated GFR (Cockcroft-Gault) 81.9 Glucose Level 82 mg/dL (70-99) Calcium Level 8.2 mg/dL (8.5-10.1) Urine Collection Type Unknown Urine Color Yellow Urine Clarity Clear Urine pH 5.5 Urine Specific [place] 1.020 Urine Protein Negative mg/dL (NEG-TRACE) Urine Glucose (UA) Negative mg/dL (NEG) Urine Ketones (Stick) Trace mg/dL (NEG) Urine Blood Trace (NEG) Urine Nitrite Negative (NEG) Urine Bilirubin Negative (NEG) Urine Urobilinogen Dipstick 0.2 mg/dL (0.2 mg/dL) Urine Leukocyte Esterase Moderate (NEG) Urine RBC Occ /HPF (0-2) Urine WBC 1-4 /HPF (0-4) Urine Squamous Epithelial Cells Many /LPF Urine Bacteria Moderate /HPF (0-FEW) Urine Mucus Marked /LPF Urine Yeast Present /HPF Laboratory Tests Test 07/20/18 13:20 Urine Collection Type Unknown Urine Color Yellow Urine Clarity Clear Urine pH 5.5 Urine Specific [place] 1.020 Urine Protein Negative mg/dL (NEG-TRACE) Urine Glucose (UA) Negative mg/dL (NEG) Urine Ketones (Stick) Trace mg/dL (NEG) Urine Blood Trace (NEG) Urine Nitrite Negative (NEG) Urine Bilirubin Negative (NEG) Urine Urobilinogen Dipstick 0.2 mg/dL (0.2 mg/dL) Urine Leukocyte Esterase Moderate (NEG) Urine RBC Occ /HPF (0-2) Urine WBC 1-4 /HPF (0-4) Urine Squamous Epithelial Cells Many /LPF Urine Bacteria Moderate /HPF (0-FEW) Urine Mucus Marked /LPF Urine Yeast Present /HPF Microbiology 07/12/18 Urine Culture - Final, Complete 07/12/18 Urine Culture Result 1 (SHEBA) - Final, Complete Medications Current Medications Sodium Chloride 1,000 ml @ 1,000 mls/hr 1X ONCE IV Last administered on at 09:37; Start 07/12/18 at 09:15; Stop 07/12/18 at 10:14; Status DC Ondansetron HCl (Zofran) 4 mg 1X ONCE IV Last administered on 07/12/18at 09:43 ; Start 07/12/18 at 09:15; Stop 07/12/18 at 09:16; Status DC Dicyclomine HCl (Bentyl) 20 mg 1X ONCE IM Last administered on 07/12/18at 10:44 ; Start 07/12/18 at 09:15; Stop 07/12/18 at 09:16; Status DC Iohexol (Omnipaque 300 Mg/ml) 75 ml 1X ONCE IV Last administered on 07/12/18at 10:30; Start 07/12/18 at 10:30; Stop 07/12/18 at 10:32; Status DC Info (CONTRAST GIVEN -- Rx MONITORING) 1 each PRN DAILY PRN MC SEE COMMENTS; Start 07/12/18 at 10:45; Stop 07/14/18 at 10:44; Status DC Metronidazole 100 ml @ 100 mls/hr 1X ONCE IV Last administered on 07/12/18at 13:10; Start 07/12/18 at 12:30; Stop 07/12/18 at 13:29; Status DC Ciprofloxacin/ Dextrose 200 ml @ 200 mls/hr Q12HR IV Last administered on 07/12at 23:00; Start 07/12/18 at 13:30; Stop 07/13/18 at 08:57; Status DC Morphine Sulfate (Morphine Sulfate) 2 mg PRN Q2HR PRN IV SEVERE PAIN Last administered on 07/13/18at 16:10; Start 07/12/18 at 16:00; Stop 07/17/18 at 09:36 ; Status DC Atorvastatin Calcium (Lipitor) 20 mg HS PO Last administered on 07/20/18at 20:45 ; Start 07/12/18 at 21:00 Cetirizine HCl (ZyrTEC) 10 mg DAILY PO Last administered on 07/21/18 10:32; Start 07/12/18 at 16:00 Lubiprostone (Amitiza) 8 mcg BID PO Last administered on 07/13/18at 08:23; Start 07/12/18 at 21:00; Stop 07/13/18 at 08:49; Status DC Lisinopril (Prinivil) 10 mg DAILY PO Last administered on 07/21/18at 10:31; Start 07/13/18 at 09:00 Oxcarbazepine (Trileptal) 300 mg BID PO Last administered on 07/13/18at 08:23; Start 07/12/18 at 21:00; Stop 07/13/18 at 11:19; Status DC Polyethylene Glycol (miraLAX PACKET) 17 gm BID PO Last administered on at 10:32; Start 07/12/18 at 21:00 Topiramate (Topamax) 100 mg BID PO Last administered on 07/21/18at 10:30; Start 07/12/18 at 21:00 Hydrochlorothiazide (Microzide) 12.5 mg DAILY PO Last administered on at 11:44; Start 07/13/18 at 09:00; Stop 07/16/18 at 11:39; Status DC Ketorolac Tromethamine (Toradol 30mg Vial) 30 mg PRN Q6HRS PRN IV MILD - MODERATE PAIN; Start 07/12/18 at 20:00; Stop 07/17/18 at 19:59; Status DC Lactobacillus Rhamnosus (Culturelle) 1 cap BID PO Last administered on 9/24/ 18at 10:30; Start 07/13/18 at 09:00 Ciprofloxacin/ Dextrose 200 ml @ 200 mls/hr Q12H IV Last administered on 10:49; Start 07/13/18 at 11:00; Stop 07/16/18 at 11:39; Status DC Metronidazole 100 ml @ 100 mls/hr Q8HRS IV Last administered on 07/16/18 06: 09; Start 07/13/18 at 09:00; Stop 07/16/18 at 11:39; Status DC Potassium Chloride (Klor-Con) 40 meq 1X ONCE PO Last administered on 09:26; Start 07/13/18 at 08:45; Stop 07/13/18 at 08:52; Status DC Potassium Chloride (Klor-Con) 40 meq DAILYWBKFT PO Last administered on 10:31; Start 07/14/18 at 08:00 Loperamide HCl (Imodium) 2 mg PRN Q15MIN PRN PO DIARRHEA Last administered on 09:40; Start 07/13/18 at 08:45 Ondansetron HCl (Zofran) 4 mg PRN Q6HRS PRN IV NAUSEA/VOMITING Last administered on 07/21/18 07:41; Start 07/13/18 at 08:45 Ondansetron HCl (Zofran Odt) 4 mg PRN Q6HRS PRN PO NAUSEA/VOMITING Last administered on 07/18/18 14:03; Start 07/13/18 at 08:45 Acetaminophen (Tylenol) 500 mg PRN Q6HRS PRN PO MILD PAIN / TEMP Last administered on 07/17/18 10:09; Start 07/13/18 at 08:45 Acetaminophen/ Hydrocodone Bitart (Lortab 5/325) 1 tab PRN Q4HRS PRN PO PAIN MODERATE TO SEVERE Last administered on 07/21/18 02:14; Start 07/13/18 at 08:45 Sodium Chloride 1,000 ml @ 100 mls/hr 1X ONCE IV Last administered on 09:33; Start 07/13/18 at 09:00; Stop 07/13/18 at 18:59; Status DC Oxcarbazepine (Trileptal) 900 mg BID PO Last administered on 07/21/18at 10:34; Start 07/13/18 at 21:00 Bisacodyl (Dulcolax Tab) 10 mg 1X ONCE PO Last administered on 07/13/18at 17:07 ; Start 07/13/18 at 17:00; Stop 07/13/18 at 17:01; Status DC Polyethylene Glycol (miraLAX Powder BULK BOTTLE) 238 gm 1X ONCE PO Last administered on 07/13/18at 19:35; Start 07/13/18 at 19:00; Stop 07/13/18 at 19:01 ; Status DC Sodium Chloride (Normal Saline Flush) 3 ml QSHIFT PRN IV AFTER MEDS AND BLOOD DRAWS; Start 07/13/18 at 16:45 Sodium Chloride (Normal Saline Flush) 3 ml QSHIFT PRN IV AFTER MEDS AND BLOOD DRAWS; Start 07/13/18 at 16:45; Status UNV Benzocaine (Hurricaine One) 1 spray STK-MED ONCE .ROUTE ; Start 07/14/18 at 07: 58; Stop 07/14/18 at 07:59; Status DC Midazolam HCl (Versed) 5 mg STK-MED ONCE .ROUTE ; Start 07/14/18 at 07:59; Stop 07/14/18 at 08:00; Status DC Fentanyl Citrate (Fentanyl 2ml Vial) 100 mcg STK-MED ONCE .ROUTE ; Start at 07:59; Stop 07/14/18 at 08:00; Status DC Propofol 40 ml @ As Directed STK-MED ONCE IV ; Start 07/14/18 at 08:34; Stop at 08:35; Status DC Lidocaine HCl (Lidocaine Pf 2% Vial) 5 ml STK-MED ONCE .ROUTE ; Start 07/14/18 at 08:34; Stop 07/14/18 at 08:35; Status DC Cefazolin Sodium/ Dextrose 50 ml @ 100 mls/hr 1X PREOP PRN IV environmental studies professor to OR Last administered on 07/15/18at 09:40; Start 07/15/18 at 06:00; Stop 07/15/18 at 18:00; Status DC Metronidazole 100 ml @ 100 mls/hr 1X PREOP PRN IV environmental studies professor to OR; Start at 06:00; Stop 07/15/18 at 18:00; Status DC Fentanyl Citrate (Fentanyl 2ml Vial) 25 mcg PRN Q5MIN PRN IV MILD PAIN; Start 07/15/18 at 07:00; Stop 07/15/18 at 21:00; Status DC Fentanyl Citrate (Fentanyl 2ml Vial) 50 mcg PRN Q5MIN PRN IV MODERATE TO SEVERE PAIN Last administered on 07/15/18at 13:55; Start 07/15/18 at 07:00; Stop 07/15/18 at 21:00; Status DC Morphine Sulfate (Morphine Sulfate) 1 mg PRN Q10MIN PRN IV SEVERE PAIN; Start 07/15/18 at 07:00; Stop 07/15/18 at 21:00; Status DC Ringer's Solution 1,000 ml @ 30 mls/hr Q24H IV ; Start 07/15/18 at 07:00; Stop 07/15/18 at 18:59; Status DC Lidocaine HCl (Xylocaine-Mpf 1% 2ml Vial) 2 ml PRN 1X PRN ID IV START; Start at 07:00; Stop 07/15/18 at 21:00; Status DC Hydromorphone HCl (Dilaudid) 0.5 mg PRN Q10MIN PRN IV SEV PAIN, Second choice; Start 07/15/18 at 07:00; Stop 07/15/18 at 21:00; Status DC Prochlorperazine Edisylate (Compazine) 5 mg PACU PRN PRN IV NAUSEA, MRX1; Start 07/15/18 at 07:00; Stop 07/15/18 at 21:00; Status DC Epinephrine HCl (Adrenalin) 30 mg STK-MED ONCE .ROUTE ; Start 07/15/18 at 08:02 ; Stop 07/15/18 at 09:03; Status DC Bupivacaine HCl (Sensorcaine Mpf 0.25%) 30 ml STK-MED ONCE .ROUTE ; Start at 08:02; Stop 07/15/18 at 09:03; Status DC Sevoflurane (Ultane) 90 ml STK-MED ONCE IH ; Start 07/15/18 at 09:12; Stop 07/15 at 09:13; Status DC Midazolam HCl (Versed) 2 mg STK-MED ONCE .ROUTE ; Start 07/15/18 at 09:12; Stop 07/15/18 at 09:13; Status DC Fentanyl Citrate (Fentanyl 2ml Vial) 100 mcg STK-MED ONCE .ROUTE ; Start at 09:12; Stop 07/15/18 at 09:13; Status DC Glycopyrrolate (Robinul) 1 mg STK-MED ONCE .ROUTE ; Start 07/15/18 at 09:13; Stop 07/15/18 at 09:14; Status DC Neostigmine Methylsulfate (Neostigmine Methylsulfate) 5 mg STK-MED ONCE .ROUTE ; Start 07/15/18 at 09:13; Stop 07/15/18 at 09:14; Status DC Rocuronium [place] (Zemuron) 50 mg STK-MED ONCE .ROUTE ; Start 07/15/18 at 09:13 ; Stop 07/15/18 at 09:14; Status DC Dexamethasone Sodium Phosphate (Decadron) 20 mg STK-MED ONCE .ROUTE ; Start at 09:13; Stop 07/15/18 at 09:14; Status DC Ketorolac Tromethamine (Toradol For Or Only) 30 mg STK-MED ONCE INJ ; Start at 09:13; Stop 07/15/18 at 09:14; Status DC Propofol 20 ml @ As Directed STK-MED ONCE IV ; Start 07/15/18 at 09:13; Stop at 09:14; Status DC Ondansetron HCl (Zofran) 4 mg STK-MED ONCE .ROUTE ; Start 07/15/18 at 09:13; Stop 07/15/18 at 09:14; Status DC Phenylephrine HCl (PHENYLEPHRINE in 0.9% NACL PF) 1 mg STK-MED ONCE IV ; Start 07/15/18 at 09:53; Stop 07/15/18 at 09:54; Status DC Fentanyl Citrate (Fentanyl 2ml Vial) 100 mcg STK-MED ONCE .ROUTE ; Start at 10:05; Stop 07/15/18 at 10:06; Status DC Esmolol HCl (Brevibloc) 100 mg STK-MED ONCE IV ; Start 07/15/18 at 10:09; Stop 07/15/18 at 10:10; Status DC Rocuronium [place] (Zemuron) 50 mg STK-MED ONCE .ROUTE ; Start 07/15/18 at 10:10 ; Stop 07/15/18 at 10:11; Status DC Ephedrine Sulfate (ePHEDrine PF IN SALINE SYRINGE) 50 mg STK-MED ONCE IV ; Start 07/15/18 at 11:02; Stop 07/15/18 at 11:03; Status DC Fentanyl Citrate (Fentanyl 2ml Vial) 100 mcg STK-MED ONCE .ROUTE ; Start at 11:09; Stop 07/15/18 at 11:10; Status DC Fentanyl Citrate (Fentanyl 2ml Vial) 100 mcg STK-MED ONCE .ROUTE ; Start at 12:51; Stop 07/15/18 at 12:52; Status DC Morphine Sulfate 30 ml @ 0 mls/hr CONT PRN PRN IV PER PROTOCOL Last administered on 07/16/18at 19:50; Start 07/15/18 at 13:30; Stop 07/17/18 at 09:43 ; Status DC Fentanyl Citrate (Fentanyl 2ml Vial) 100 mcg STK-MED ONCE .ROUTE ; Start at 13:34; Stop 07/15/18 at 13:35; Status DC Throat Lozenges (Chloraseptic) 1 spray PRN Q3HRS PRN PO SORE THROAT Last administered on 07/15/18at 21:55; Start 07/15/18 at 21:45 Sodium Chloride 1,000 ml @ 1,000 mls/hr 1X ONCE IV Last administered on at 03:45; Start 07/16/18 at 03:45; Stop 07/16/18 at 04:44; Status DC Sodium Chloride 1,000 ml @ 125 mls/hr 1X ONCE IV ; Start 07/16/18 at 04:45; Stop 07/16/18 at 12:44; Status Cancel Sodium Chloride 1,000 ml @ 125 mls/hr Q8H IV Last administered on 07/20/18at 10 :04; Start 07/16/18 at 05:00; Stop 07/20/18 at 14:15; Status DC Enoxaparin Sodium (Lovenox 40mg Syringe) 40 mg Q24H SQ Last administered on at 13:42; Start 07/16/18 at 10:00; Stop 07/19/18 at 14:34; Status DC Albuterol/ Ipratropium (Duoneb) 3 ml RTQID NEB Last administered on 07/21/18at 11:23; Start 07/16/18 at 12:00 Albuterol Sulfate (Ventolin Neb Soln) 2.5 mg PRN Q4HRS PRN NEB SHORTNESS OF BREATH Last administered on 07/21/18at 03:55; Start 07/16/18 at 11:45 Al Hydroxide/Mg Hydroxide (Mylanta Plus Xs) 30 ml PRN Q2HR PRN PO HEARTBURN / GAS; Start 07/16/18 at 22:00; Stop 07/16/18 at 22:00; Status DC Famotidine (Pepcid) 20 mg QHS PO ; Start 07/17/18 at 21:00; Stop 07/17/18 at 21: 00; Status DC Famotidine (Pepcid) 20 mg 1X ONCE PO ; Start 07/16/18 at 22:00; Stop 07/16/18 at 22:00; Status DC Famotidine (Pepcid Vial) 20 mg QHS IVP Last administered on 07/17/18at 21:16; Start 07/17/18 at 21:00; Stop 07/18/18 at 08:21; Status DC Famotidine (Pepcid Vial) 20 mg 1X ONCE IVP Last administered on 07/16/18at 22: 38; Start 07/16/18 at 22:30; Stop 07/16/18 at 22:31; Status DC Iron Sucrose 200 mg/Sodium Chloride 110 ml @ 55 mls/hr DAILY IV Last administered on 07/21/18at 10:27; Start 07/17/18 at 12:30; Stop 07/21/18 at 12:29 Calcium Carbonate/ Glycine (Tums) 500 mg PRN AFTMEALHC PRN PO INDIGESTION Last administered on 07/18/18at 16:30; Start 07/17/18 at 21:15 Iohexol (Omnipaque 300 Mg/ml) 75 ml 1X ONCE IV Last administered on 07/18/18at 08:15; Start 07/18/18 at 08:15; Stop 07/18/18 at 08:16; Status DC Info (CONTRAST GIVEN -- Rx MONITORING) 1 each PRN DAILY PRN MC SEE COMMENTS; Start 07/18/18 at 08:15; Stop 07/20/18 at 08:14; Status DC Famotidine (Pepcid Vial) 20 mg BID IVP Last administered on 07/21/18at 07:41; Start 07/18/18 at 09:00; Stop 07/21/18 at 11:57; Status DC Multi-Ingredient Mouthwash/Gargle (Gi Cocktail) 20 ml PRN QID PRN PO CHEST PAIN Last administered on 07/18/18at 13:57; Start 07/18/18 at 12:00; Stop at 13:11; Status DC Enoxaparin Sodium (Lovenox 40mg Syringe) 40 mg Q12HR SQ Last administered on at 10:32; Start 07/19/18 at 21:00 Prochlorperazine Edisylate (Compazine) 10 mg PRN Q6HRS PRN IV NAUSEA/VOMITING Last administered on 07/21/18at 10:25; Start 07/21/18 at 10:15 Amoxicillin (Amoxil) 1,000 mg BID PO ; Start 07/21/18 at 21:00 Clarithromycin (Biaxin) 500 mg BID PO ; Start 07/21/18 at 21:00 Pantoprazole Sodium (Protonix) 40 mg BIDAC PO ; Start 07/21/18 at 16:30; Status UNV Active Scripts Active Reported Advair 250-50 Diskus (Fluticasone/Salmeterol) 1 Each Disk.w.dev 1 Puff IH BID Proair Hfa Inhaler (Albuterol Sulfate) 8.5 Gm Hfa.aer.ad 1 Puff INH PRN Q6HRS PRN Amitiza (Lubiprostone) 8 Mcg Capsule 1 Cap PO BID Miralax (Polyethylene Glycol 3350) 17 Gm Powd.pack 1 Packet PO BID Zyrtec (Cetirizine Hcl) 10 Mg Tablet 1 Tab PO DAILY Atorvastatin Calcium 20 Mg Tablet 20 Mg PO HS Topiramate 100 Mg Tablet 1 Tab PO BID Oxcarbazepine 300 Mg Tablet 1 Tab PO BID Lisinopril-Hctz 10-12.5 Mg Tab (Lisinopril/Hydrochlorothiazide) 1 Each Tablet 1 Tab PO DAILY Vitals/I & O Vital Sign - Last 24 Hours 07/20/18 07/20/18 07/20/18 07/20/18 14:48 15:00 19:00 19:43 Temp 97.9 98.9 97.9 98.9 Pulse 93 101 Resp 16 18 B/P (MAP) 136/87 (103) 127/88 (101) Pulse Ox 99 92 98 O2 Delivery Room Air Room Air Room Air Room Air 07/20/18 07/20/18 07/21/18 07/21/18 20:00 22:54 02:14 03:00 Temp 98.4 98.4 98.4 98.4 Pulse 96 94 Resp 18 20 18 B/P (MAP) 154/99 (117) 134/92 (106) Pulse Ox 95 95 98 O2 Delivery Room Air Room Air Room Air Room Air O2 Flow Rate 2.0 07/21/18 07/21/18 07/21/18 07/21/18 03:14 03:54 07:00 07:21 Temp 98.3 98.3 Pulse 97 Resp 20 18 B/P (MAP) 140/95 (110) Pulse Ox 98 97 95 O2 Delivery Room Air Room Air Room Air Room Air 07/21/18 07/21/18 07/21/18 08:00 10:31 11:00 Temp 98.3 98.3 Pulse 97 95 Resp 18 B/P (MAP) 140/95 141/100 (114) Pulse Ox 97 O2 Delivery Room Air Room Air Intake and Output 07/20/18 07/20/18 07/21/18 15:00 23:00 07:00 Intake Total 2020 ml Balance 2020 ml ANY DUENAS MD Jul 21, 2018 12:02
[2018-07-21] MEDS: CLARITHROMYCIN 500 MG TABLET. PO SCH ×2 (12:57→20:08)
[2018-07-21] MEDS: AMOXICILLIN 250 MG CAPSULE. PO SCH ×2 (12:57→20:08)
--- NOTE | 2018-07-21 13:50 | PDOC3 ---
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 Nonobstructing left intrarenal calculi. Enlarged fibroid uterus. Probable renal cysts. asthma HTN morbid obesity h/o seizure disorder AMS at hosp, with HOSE MAKER likely gastric bx + h pylori plan: home with home health fu wiht sx,off HOSE MAKER , advance as tolerated as per sx, change to full liquid add duoneb, albuterol prn cont seizure meds, neuro consulted for AMS dc abx onco consulted, garsia CT for staging, no obvious mets on image? h pylori treatment defer to GI to see oncology next week ok for d/c Saturday History of Present Illness History of Present Illness CAT scan: 1. Mural thickening involving the colon in the ileocecal valve region raising the possibility of colonic malignancy. An inflammatory process cannot be excluded. There is mild associated dilatation of the distal small bowel and mild mesenteric adenopathy at this level. 2. Small amount of free fluid in the pelvis. 3. Cholelithiasis. 4. Nonobstructing left intrarenal calculi. 5. Enlarged fibroid uterus. 6. Probable renal cysts. FINAL DIAGNOSIS Problems Medical Problems: (1) Abdominal pain Status: Acute (2) Bandemia Status: Acute (3) Leukocytosis Status: Acute (4) Nausea vomiting and diarrhea Status: Acute (5) UTI (urinary tract infection) Status: Acute Brief Hospital Course Ms. Mackey is a 47 old [sex] who presented with [ ] CONDITION AT DISCHARGE: Improved Discharge Medications Current Medications Sodium Chloride 1,000 ml @ 1,000 mls/hr 1X ONCE IV Last administered on at 09:37; Start 07/12/18 at 09:15; Stop 07/12/18 at 10:14; Status DC Ondansetron HCl (Zofran) 4 mg 1X ONCE IV Last administered on 07/12/18at 09:43 ; Start 07/12/18 at 09:15; Stop 07/12/18 at 09:16; Status DC Dicyclomine HCl (Bentyl) 20 mg 1X ONCE IM Last administered on 07/12/18at 10:44 ; Start 07/12/18 at 09:15; Stop 07/12/18 at 09:16; Status DC Iohexol (Omnipaque 300 Mg/ml) 75 ml 1X ONCE IV Last administered on 07/12/18at 10:30; Start 07/12/18 at 10:30; Stop 07/12/18 at 10:32; Status DC Info (CONTRAST GIVEN -- Rx MONITORING) 1 each PRN DAILY PRN MC SEE COMMENTS; Start 07/12/18 at 10:45; Stop 07/14/18 at 10:44; Status DC Metronidazole 100 ml @ 100 mls/hr 1X ONCE IV Last administered on 07/12/18at 13:10; Start 07/12/18 at 12:30; Stop 07/12/18 at 13:29; Status DC Ciprofloxacin/ Dextrose 200 ml @ 200 mls/hr Q12HR IV Last administered on 07/12at 23:00; Start 07/12/18 at 13:30; Stop 07/13/18 at 08:57; Status DC Morphine Sulfate (Morphine Sulfate) 2 mg PRN Q2HR PRN IV SEVERE PAIN Last administered on 07/13/18at 16:10; Start 07/12/18 at 16:00; Stop 07/17/18 at 09:36 ; Status DC Atorvastatin Calcium (Lipitor) 20 mg HS PO Last administered on 07/20/18at 20:45 ; Start 07/12/18 at 21:00 Cetirizine HCl (ZyrTEC) 10 mg DAILY PO Last administered on 07/21/18at 10:32; Start 07/12/18 at 16:00 Lubiprostone (Amitiza) 8 mcg BID PO Last administered on 07/13/18at 08:23; Start 07/12/18 at 21:00; Stop 07/13/18 at 08:49; Status DC Lisinopril (Prinivil) 10 mg DAILY PO Last administered on 07/21/18at 10:31; Start 07/13/18 at 09:00 Oxcarbazepine (Trileptal) 300 mg BID PO Last administered on 07/13/18at 08:23; Start 07/12/18 at 21:00; Stop 07/13/18 at 11:19; Status DC Polyethylene Glycol (miraLAX PACKET) 17 gm BID PO Last administered on 10:32; Start 07/12/18 at 21:00 Topiramate (Topamax) 100 mg BID PO Last administered on 07/21/18at 10:30; Start 07/12/18 at 21:00 Hydrochlorothiazide (Microzide) 12.5 mg DAILY PO Last administered on at 11:44; Start 07/13/18 at 09:00; Stop 07/16/18 at 11:39; Status DC Ketorolac Tromethamine (Toradol 30mg Vial) 30 mg PRN Q6HRS PRN IV MILD - MODERATE PAIN; Start 07/12/18 at 20:00; Stop 07/17/18 at 19:59; Status DC Lactobacillus Rhamnosus (Culturelle) 1 cap BID PO Last administered on at 10:30; Start 07/13/18 at 09:00 Ciprofloxacin/ Dextrose 200 ml @ 200 mls/hr Q12H IV Last administered on at 10:49; Start 07/13/18 at 11:00; Stop 07/16/18 at 11:39; Status DC Metronidazole 100 ml @ 100 mls/hr Q8HRS IV Last administered on 07/16/18at 06: 09; Start 07/13/18 at 09:00; Stop 07/16/18 at 11:39; Status DC Potassium Chloride (Klor-Con) 40 meq 1X ONCE PO Last administered on at 09:26; Start 07/13/18 at 08:45; Stop 07/13/18 at 08:52; Status DC Potassium Chloride (Klor-Con) 40 meq DAILYWBKFT PO Last administered on at 10:31; Start 07/14/18 at 08:00 Loperamide HCl (Imodium) 2 mg PRN Q15MIN PRN PO DIARRHEA Last administered on at 09:40; Start 07/13/18 at 08:45 Ondansetron HCl (Zofran) 4 mg PRN Q6HRS PRN IV NAUSEA/VOMITING Last administered on 07/21/18at 07:41; Start 07/13/18 at 08:45 Ondansetron HCl (Zofran Odt) 4 mg PRN Q6HRS PRN PO NAUSEA/VOMITING Last administered on 07/18/18at 14:03; Start 07/13/18 at 08:45 Acetaminophen (Tylenol) 500 mg PRN Q6HRS PRN PO MILD PAIN / TEMP Last administered on 07/17/18at 10:09; Start 07/13/18 at 08:45 Acetaminophen/ Hydrocodone Bitart (Lortab 5/325) 1 tab PRN Q4HRS PRN PO PAIN MODERATE TO SEVERE Last administered on 07/21/18at 02:14; Start 07/13/18 at 08:45 Sodium Chloride 1,000 ml @ 100 mls/hr 1X ONCE IV Last administered on at 09:33; Start 07/13/18 at 09:00; Stop 07/13/18 at 18:59; Status DC Oxcarbazepine (Trileptal) 900 mg BID PO Last administered on 07/21/18at 10:34; Start 07/13/18 at 21:00 Bisacodyl (Dulcolax Tab) 10 mg 1X ONCE PO Last administered on 07/13/18at 17:07 ; Start 07/13/18 at 17:00; Stop 07/13/18 at 17:01; Status DC Polyethylene Glycol (miraLAX Powder BULK BOTTLE) 238 gm 1X ONCE PO Last administered on 07/13/18at 19:35; Start 07/13/18 at 19:00; Stop 07/13/18 at 19:01 ; Status DC Sodium Chloride (Normal Saline Flush) 3 ml QSHIFT PRN IV AFTER MEDS AND BLOOD DRAWS; Start 07/13/18 at 16:45 Sodium Chloride (Normal Saline Flush) 3 ml QSHIFT PRN IV AFTER MEDS AND BLOOD DRAWS; Start 07/13/18 at 16:45; Status UNV Benzocaine (Hurricaine One) 1 spray STK-MED ONCE .ROUTE ; Start 07/14/18 at 07: 58; Stop 07/14/18 at 07:59; Status DC Midazolam HCl (Versed) 5 mg STK-MED ONCE .ROUTE ; Start 07/14/18 at 07:59; Stop 07/14/18 at 08:00; Status DC Fentanyl Citrate (Fentanyl 2ml Vial) 100 mcg STK-MED ONCE .ROUTE ; Start at 07:59; Stop 07/14/18 at 08:00; Status DC Propofol 40 ml @ As Directed STK-MED ONCE IV ; Start 07/14/18 at 08:34; Stop at 08:35; Status DC Lidocaine HCl (Lidocaine Pf 2% Vial) 5 ml STK-MED ONCE .ROUTE ; Start 07/14/18 at 08:34; Stop 07/14/18 at 08:35; Status DC Cefazolin Sodium/ Dextrose 50 ml @ 100 mls/hr 1X PREOP PRN IV meals on wheels driver to OR Last administered on 07/15/18at 09:40; Start 07/15/18 at 06:00; Stop 07/15/18 at 18:00; Status DC Metronidazole 100 ml @ 100 mls/hr 1X PREOP PRN IV meals on wheels driver to OR; Start at 06:00; Stop 07/15/18 at 18:00; Status DC Fentanyl Citrate (Fentanyl 2ml Vial) 25 mcg PRN Q5MIN PRN IV MILD PAIN; Start 07/15/18 at 07:00; Stop 07/15/18 at 21:00; Status DC Fentanyl Citrate (Fentanyl 2ml Vial) 50 mcg PRN Q5MIN PRN IV MODERATE TO SEVERE PAIN Last administered on 07/15/18at 13:55; Start 07/15/18 at 07:00; Stop 07/15/18 at 21:00; Status DC Morphine Sulfate (Morphine Sulfate) 1 mg PRN Q10MIN PRN IV SEVERE PAIN; Start 07/15/18 at 07:00; Stop 07/15/18 at 21:00; Status DC Ringer's Solution 1,000 ml @ 30 mls/hr Q24H IV ; Start 07/15/18 at 07:00; Stop 07/15/18 at 18:59; Status DC Lidocaine HCl (Xylocaine-Mpf 1% 2ml Vial) 2 ml PRN 1X PRN ID IV START; Start at 07:00; Stop 07/15/18 at 21:00; Status DC Hydromorphone HCl (Dilaudid) 0.5 mg PRN Q10MIN PRN IV SEV PAIN, Second choice; Start 07/15/18 at 07:00; Stop 07/15/18 at 21:00; Status DC Prochlorperazine Edisylate (Compazine) 5 mg PACU PRN PRN IV NAUSEA, MRX1; Start 07/15/18 at 07:00; Stop 07/15/18 at 21:00; Status DC Epinephrine HCl (Adrenalin) 30 mg STK-MED ONCE .ROUTE ; Start 07/15/18 at 08:02 ; Stop 07/15/18 at 09:03; Status DC Bupivacaine HCl (Sensorcaine Mpf 0.25%) 30 ml STK-MED ONCE .ROUTE ; Start at 08:02; Stop 07/15/18 at 09:03; Status DC Sevoflurane (Ultane) 90 ml STK-MED ONCE IH ; Start 07/15/18 at 09:12; Stop 07/15 at 09:13; Status DC Midazolam HCl (Versed) 2 mg STK-MED ONCE .ROUTE ; Start 07/15/18 at 09:12; Stop 07/15/18 at 09:13; Status DC Fentanyl Citrate (Fentanyl 2ml Vial) 100 mcg STK-MED ONCE .ROUTE ; Start at 09:12; Stop 07/15/18 at 09:13; Status DC Glycopyrrolate (Robinul) 1 mg STK-MED ONCE .ROUTE ; Start 07/15/18 at 09:13; Stop 07/15/18 at 09:14; Status DC Neostigmine Methylsulfate (Neostigmine Methylsulfate) 5 mg STK-MED ONCE .ROUTE ; Start 07/15/18 at 09:13; Stop 07/15/18 at 09:14; Status DC Rocuronium Hankamer (Zemuron) 50 mg STK-MED ONCE .ROUTE ; Start 07/15/18 at 09:13 ; Stop 07/15/18 at 09:14; Status DC Dexamethasone Sodium Phosphate (Decadron) 20 mg STK-MED ONCE .ROUTE ; Start at 09:13; Stop 07/15/18 at 09:14; Status DC Ketorolac Tromethamine (Toradol For Or Only) 30 mg STK-MED ONCE INJ ; Start at 09:13; Stop 07/15/18 at 09:14; Status DC Propofol 20 ml @ As Directed STK-MED ONCE IV ; Start 07/15/18 at 09:13; Stop at 09:14; Status DC Ondansetron HCl (Zofran) 4 mg STK-MED ONCE .ROUTE ; Start 07/15/18 at 09:13; Stop 07/15/18 at 09:14; Status DC Phenylephrine HCl (PHENYLEPHRINE in 0.9% NACL PF) 1 mg STK-MED ONCE IV ; Start 07/15/18 at 09:53; Stop 07/15/18 at 09:54; Status DC Fentanyl Citrate (Fentanyl 2ml Vial) 100 mcg STK-MED ONCE .ROUTE ; Start at 10:05; Stop 07/15/18 at 10:06; Status DC Esmolol HCl (Brevibloc) 100 mg STK-MED ONCE IV ; Start 07/15/18 at 10:09; Stop 07/15/18 at 10:10; Status DC Rocuronium Hankamer (Zemuron) 50 mg STK-MED ONCE .ROUTE ; Start 07/15/18 at 10:10 ; Stop 07/15/18 at 10:11; Status DC Ephedrine Sulfate (ePHEDrine PF IN SALINE SYRINGE) 50 mg STK-MED ONCE IV ; Start 07/15/18 at 11:02; Stop 07/15/18 at 11:03; Status DC Fentanyl Citrate (Fentanyl 2ml Vial) 100 mcg STK-MED ONCE .ROUTE ; Start at 11:09; Stop 07/15/18 at 11:10; Status DC Fentanyl Citrate (Fentanyl 2ml Vial) 100 mcg STK-MED ONCE .ROUTE ; Start at 12:51; Stop 07/15/18 at 12:52; Status DC Morphine Sulfate 30 ml @ 0 mls/hr CONT PRN PRN IV PER PROTOCOL Last administered on 07/16/18at 19:50; Start 07/15/18 at 13:30; Stop 07/17/18 at 09:43 ; Status DC Fentanyl Citrate (Fentanyl 2ml Vial) 100 mcg STK-MED ONCE .ROUTE ; Start at 13:34; Stop 07/15/18 at 13:35; Status DC Throat Lozenges (Chloraseptic) 1 spray PRN Q3HRS PRN PO SORE THROAT Last administered on 07/15/18at 21:55; Start 07/15/18 at 21:45 Sodium Chloride 1,000 ml @ 1,000 mls/hr 1X ONCE IV Last administered on at 03:45; Start 07/16/18 at 03:45; Stop 07/16/18 at 04:44; Status DC Sodium Chloride 1,000 ml @ 125 mls/hr 1X ONCE IV ; Start 07/16/18 at 04:45; Stop 07/16/18 at 12:44; Status Cancel Sodium Chloride 1,000 ml @ 125 mls/hr Q8H IV Last administered on 07/20/18at 10 :04; Start 07/16/18 at 05:00; Stop 07/20/18 at 14:15; Status DC Enoxaparin Sodium (Lovenox 40mg Syringe) 40 mg Q24H SQ Last administered on at 13:42; Start 07/16/18 at 10:00; Stop 07/19/18 at 14:34; Status DC Albuterol/ Ipratropium (Duoneb) 3 ml RTQID NEB Last administered on 07/21/18at 11:23; Start 07/16/18 at 12:00 Albuterol Sulfate (Ventolin Neb Soln) 2.5 mg PRN Q4HRS PRN NEB SHORTNESS OF BREATH Last administered on 07/21/18at 03:55; Start 07/16/18 at 11:45 Al Hydroxide/Mg Hydroxide (Mylanta Plus Xs) 30 ml PRN Q2HR PRN PO HEARTBURN / GAS; Start 07/16/18 at 22:00; Stop 07/16/18 at 22:00; Status DC Famotidine (Pepcid) 20 mg QHS PO ; Start 07/17/18 at 21:00; Stop 07/17/18 at 21: 00; Status DC Famotidine (Pepcid) 20 mg 1X ONCE PO ; Start 07/16/18 at 22:00; Stop 07/16/18 at 22:00; Status DC Famotidine (Pepcid Vial) 20 mg QHS IVP Last administered on 07/17/18at 21:16; Start 07/17/18 at 21:00; Stop 07/18/18 at 08:21; Status DC Famotidine (Pepcid Vial) 20 mg 1X ONCE IVP Last administered on 07/16/18at 22: 38; Start 07/16/18 at 22:30; Stop 07/16/18 at 22:31; Status DC Iron Sucrose 200 mg/Sodium Chloride 110 ml @ 55 mls/hr DAILY IV Last administered on 07/21/18at 10:27; Start 07/17/18 at 12:30; Stop 07/21/18 at 12:29 ; Status DC Calcium Carbonate/ Glycine (Tums) 500 mg PRN AFTMEALHC PRN PO INDIGESTION Last administered on 07/18/18at 16:30; Start 07/17/18 at 21:15 Iohexol (Omnipaque 300 Mg/ml) 75 ml 1X ONCE IV Last administered on 07/18/18at 08:15; Start 07/18/18 at 08:15; Stop 07/18/18 at 08:16; Status DC Info (CONTRAST GIVEN -- Rx MONITORING) 1 each PRN DAILY PRN MC SEE COMMENTS; Start 07/18/18 at 08:15; Stop 07/20/18 at 08:14; Status DC Famotidine (Pepcid Vial) 20 mg BID IVP Last administered on 07/21/18at 07:41; Start 07/18/18 at 09:00; Stop 07/21/18 at 11:57; Status DC Multi-Ingredient Mouthwash/Gargle (Gi Cocktail) 20 ml PRN QID PRN PO CHEST PAIN Last administered on 07/18/18at 13:57; Start 07/18/18 at 12:00; Stop at 13:11; Status DC Enoxaparin Sodium (Lovenox 40mg Syringe) 40 mg Q12HR SQ Last administered on at 10:32; Start 07/19/18 at 21:00 Prochlorperazine Edisylate (Compazine) 10 mg PRN Q6HRS PRN IV NAUSEA/VOMITING Last administered on 07/21/18at 10:25; Start 07/21/18 at 10:15 Amoxicillin (Amoxil) 1,000 mg BID PO Last administered on 07/21/18at 12:57; Start 07/21/18 at 12:30 Clarithromycin (Biaxin) 500 mg BID PO Last administered on 07/21/18at 12:57; Start 07/21/18 at 12:30 Pantoprazole Sodium (Protonix) 40 mg BIDAC PO ; Start 07/21/18 at 16:30 Active Scripts Active Reported Advair 250-50 Diskus (Fluticasone/Salmeterol) 1 Each Disk.w.dev 1 Puff IH BID Proair Hfa Inhaler (Albuterol Sulfate) 8.5 Gm Hfa.aer.ad 1 Puff INH PRN Q6HRS PRN Amitiza (Lubiprostone) 8 Mcg Capsule 1 Cap PO BID Miralax (Polyethylene Glycol 3350) 17 Gm Powd.pack 1 Packet PO BID Zyrtec (Cetirizine Hcl) 10 Mg Tablet 1 Tab PO DAILY Atorvastatin Calcium 20 Mg Tablet 20 Mg PO HS Topiramate 100 Mg Tablet 1 Tab PO BID Oxcarbazepine 300 Mg Tablet 1 Tab PO BID Lisinopril-Hctz 10-12.5 Mg Tab (Lisinopril/Hydrochlorothiazide) 1 Each Tablet 1 Tab PO DAILY Vital Signs Vital Signs Date Time Temp Pulse Resp B/P (MAP) Pulse Ox O2 Delivery O2 Flow Rate FiO2 07/21/18 11:25 95 Room Air 07/21/18 11:00 98.3 95 18 141/100 (114) 98.3 07/21/18 02:14 2.0 Labs Laboratory Tests Test 07/20/18 04:15 07/20/18 13:20 White Blood Count 10.3 x10^3/uL (4.0-11.0) Red Blood Count 3.56 x10^6/uL (3.50-5.40) Hemoglobin 9.5 g/dL (12.0-15.5) Hematocrit 28.3 % (36.0-47.0) Mean Corpuscular Volume 80 fL (79-100) Mean Corpuscular Hemoglobin 27 pg (25-35) Mean Corpuscular Hemoglobin Concent 33 g/dL (31-37) Red Cell Distribution Width 18.3 % (11.5-14.5) Platelet Count 289 x10^3/uL (140-400) Neutrophils (%) (Auto) 74 % (31-73) Lymphocytes (%) (Auto) 16 % (24-48) Monocytes (%) (Auto) 6 % (0-9) Eosinophils (%) (Auto) 4 % (0-3) Basophils (%) (Auto) 1 % (0-3) Neutrophils # (Auto) 7.6 x10^3uL (1.8-7.7) Lymphocytes # (Auto) 1.7 x10^3/uL (1.0-4.8) Monocytes # (Auto) 0.6 x10^3/uL (0.0-1.1) Eosinophils # (Auto) 0.4 x10^3/uL (0.0-0.7) Basophils # (Auto) 0.0 x10^3/uL (0.0-0.2) Segmented Neutrophils % 66 % (35-66) Band Neutrophils % 2 % (0-9) Lymphocytes % 23 % (24-48) Monocytes % 6 % (0-10) Eosinophils % 3 % (0-5) Platelet Estimate Adequate (ADEQUATE) Sodium Level 141 mmol/L (136-145) Potassium Level 3.7 mmol/L (3.5-5.1) Chloride Level 110 mmol/L (98-107) Carbon Dioxide Level 20 mmol/L (21-32) Anion Gap 11 (6-14) Blood Urea Nitrogen 8 mg/dL (7-20) Creatinine 0.9 mg/dL (0.6-1.0) Estimated GFR (Cockcroft-Gault) 81.9 Glucose Level 82 mg/dL (70-99) Calcium Level 8.2 mg/dL (8.5-10.1) Urine Collection Type Unknown Urine Color Yellow Urine Clarity Clear Urine pH 5.5 Urine Specific [place] 1.020 Urine Protein Negative mg/dL (NEG-TRACE) Urine Glucose (UA) Negative mg/dL (NEG) Urine Ketones (Stick) Trace mg/dL (NEG) Urine Blood Trace (NEG) Urine Nitrite Negative (NEG) Urine Bilirubin Negative (NEG) Urine Urobilinogen Dipstick 0.2 mg/dL (0.2 mg/dL) Urine Leukocyte Esterase Moderate (NEG) Urine RBC Occ /HPF (0-2) Urine WBC 1-4 /HPF (0-4) Urine Squamous Epithelial Cells Many /LPF Urine Bacteria Moderate /HPF (0-FEW) Urine Mucus Marked /LPF Urine Yeast Present /HPF Allergies Allergies Coded Allergies Type Severity Reaction Last Updated Verified No Known Drug Allergies 07/12/18 No Disposition/Orders: D/C to Home w/ HH Patient Instructions d/c planning 35 min RAJAT OROURKE MD Jul 21, 2018 13:50
--- NOTE | 2018-07-21 13:52 | DISCH ---
DISCHARGE WITH HOME HEALTH DISCHARGE INFORMATION: Final Diagnosis: Problems Medical Problems: (1) Abdominal pain Status: Acute (2) Bandemia Status: Acute (3) Leukocytosis Status: Acute (4) Nausea vomiting and diarrhea Status: Acute (5) UTI (urinary tract infection) Status: Acute Condition on Discharge: Guarded CODE STATUS: Code Status: Full HOME HEALTH: Face to Face: I certify this patient is under my care and that I, or a nurse practitioner or physician's assistant chief of police working with me, had a face to face encounter that meets the physician face to face encounter requirements with this patient on []. Medical Complications: Other (colon cancer) Physical Therapy For: Evalulation/Treatment Occupational Therapy For: Evaluation/Treatment Speech Language Pathology For: Evaluation/Treatment Home Health Aide For: Self-care EDITOR For: Community Resources Pt Meets Homebound Status: Fatigue w/ amb. POST DISCHARGE ORDERS: Activity Instructions for Disc: Activity as tolerated DIET AFTER DISCHARGE: Cardiac CHECKS AFTER DISCHARGE: Checks after discharge: Check blood press - daily CERTIFICATION STATEMENT: Certification Statement: Certification Statement: Based on the above finding, I certify that this patient is confined to the home and needs intermittent halfway care, physical therapy and/or speech therapy, or continues to need occupational therapy.~ This patient is under my care, and I have initiated the establishment of the plan of care.~ This patient will be followed by myself or a community physician who will periodically review the plan of care. Home Meds Reported Medications Fluticasone/Salmeterol (ADVAIR 250-50 DISKUS) 1 Each Disk.w.dev, 1 PUFF IH BID, #3 INHALER 3 Refills 07/16/18 Albuterol Sulfate (PROAIR HFA INHALER) 8.5 Gm Hfa.aer.ad, 1 PUFF INH PRN Q6HRS PRN for SHORTNESS OF BREATH, INHALER 0 Refills 07/16/18 Lubiprostone (AMITIZA) 8 Mcg Capsule, 1 CAP PO BID, #60 CAP 5 Refills 07/12/18 Polyethylene Glycol 3350 (MIRALAX) 17 Gm Powd.pack, 1 PACKET PO BID, #30 PACKET 3 Refills 07/12/18 Cetirizine Hcl (ZYRTEC) 10 Mg Tablet, 1 TAB PO DAILY, #30 TAB 2 Refills 07/12/18 Atorvastatin Calcium (ATORVASTATIN CALCIUM) 20 Mg Tablet, 20 MG PO HS for FOR CHOLESTEROL, #30 TAB 0 Refills 07/12/18 Topiramate (TOPIRAMATE) 100 Mg Tablet, 1 TAB PO BID, #60 TAB 1 Refill 07/12/18 Oxcarbazepine (OXCARBAZEPINE) 300 Mg Tablet, 1 TAB PO BID, #60 TAB 1 Refill 07/12/18 Lisinopril/Hydrochlorothiazide (LISINOPRIL-HCTZ 10-12.5 MG TAB) 1 Each Tablet, 1 TAB PO DAILY, #90 TAB 3 Refills 07/12/18 RAJAT OROURKE MD Jul 21, 2018 13:52
[2018-07-21] MEDS ORDERED: ONDA4TAB12 PO (13:59)
[2018-07-21] MEDS ORDERED: OXCA300T19 PO (13:59)
[2018-07-21] MEDS ORDERED: HYDR-2758 PO (13:59)
[2018-07-21 15:00] VITALS: BP 137/96
[2018-07-21] MEDS: PANTOPRAZOLE 40 MG TABLET.DR. PO SCH (16:52)
[2018-07-21] MEDS: ONDANSETRON ODT 4 MG TAB.RAPDIS. PO PRN (16:52)
[2018-07-21 19:00] VITALS: BP 135/90
[2018-07-21] MEDS: ATORVASTATIN CALCIUM 20 MG TABLET PO SCH (20:12)
[2018-07-21] MEDS ORDERED: fentaNYL PF VIAL 100 MCG/2 ML VIAL IV PRN (22:30)
[2018-07-21] MEDS: IV NORMAL SALINE 1000ML BAG 1,000 ML IV SCH (22:30)
[2018-07-21] MEDS: MORPHINE SULFATE 2 MG/ML VIAL. IV PRN (22:33)
[2018-07-21] MEDS: PHENOL ORAL SPRAY 177ML BOTTLE. PO PRN (22:33)
[2018-07-21 23:00] VITALS: BP 129/85
[2018-07-22 03:00] VITALS: BP 126/80
--- NOTE | 2018-07-22 03:53 | RAD ---
Indication:NG TUBE PLACEMENT TECHNIQUE:Portable AP chest X-ray COMPARISON:None FINDINGS: NG tube is seen with its tip in the body of stomach. Heart is normal in size. Lungs are clear. No pneumothorax or pleural effusion. Visualized bony thorax within normal limits. IMPRESSION: NG tube in the body of stomach. Electronically signed by: Arsenio Byrnes DO (07/22/2018 3:50 AM) [id number]
[2018-07-22 07:20] VITALS: BP 133/88
[2018-07-22] MEDS: PANTOPRAZOLE 40 MG TABLET.DR. PO SCH ×2 (07:30→16:30)
[2018-07-22] MEDS: IPRATRPIUM/ALBUTEROL 0.5/2.5MG 3 ML NEBU. NEB SCH ×4 (07:37→20:27)
--- NOTE | 2018-07-22 07:53 | PDOC ---
SUBJECTIVE Subjective S: CEA 4.9, no dc yesterday due to bilious emesis, has NG tube, getting breathing tx, path still pending O: Physical exam: Gen.: Well-nourished and well-developed, resting in bed w/ nebulizer tx Psychiatric: Pleasant mood and affect Labs: Ferritin of 32, iron sat of 17, CEA 4.9 Assessment and Plan: She is a 47-year-old female with colon cancer, resected, formal pathology still pending Colon cancer: CT chest showed SAMM GGO 14 mm, she will be discussed in tumor Board today, her CEA was 4.9 (smoker), still awaiting final pathology report Anemia: She had a ferritin of 14 in October 2017, with now a ferritin of 32 and iron sat of 17% though TIBC was low, s/p IV Fe beginnng 20 Jun sucrose x 1 course, can recheck levels in a month or so... Tobacco abuse: Highly recommend smoking cessation Cervical intraepithelial neoplasia: She has gynecology follow-up pending DVT prophylaxis: w/ Lovenox Disposition: We'll follow-up with further recommendations based after path is avail, but can follow up as an outpatient as needed if dc'd Thank you kindly, and please do not hesitate to call with further questions. OBJECTIVE Vital Signs Vital Signs Date Time Temp Pulse Resp B/P (MAP) Pulse Ox O2 Delivery O2 Flow Rate FiO2 07/22/18 07:38 96 Room Air 07/22/18 07:20 97.7 92 18 133/88 (103) 94 Room Air 97.7 07/22/18 07:15 Room Air 07/22/18 03:00 97.7 70 18 126/80 (95) 98 Room Air 97.7 07/21/18 23:05 16 Room Air 07/21/18 23:00 97.9 92 18 129/85 (100) 97 Room Air 97.9 07/21/18 22:33 16 Room Air 07/21/18 20:26 Room Air 07/21/18 19:35 Room Air 07/21/18 19:00 98.2 88 18 135/90 (105) 96 Room Air 98.2 07/21/18 18:00 16 Room Air 07/21/18 16:55 14 Room Air 07/21/18 15:00 98.7 96 18 137/96 (110) 96 Room Air 98.7 07/21/18 11:25 95 Room Air 07/21/18 11:00 98.3 95 18 141/100 (114) 97 Room Air 98.3 07/21/18 10:31 97 140/95 07/21/18 08:00 Room Air I & O Intake and Output 07/22/18 07:00 Intake Total 1520 ml Output Total 3795 ml Balance -2275 ml Intake Oral 200 ml IV Total 660 ml Other 660 ml Gastric Drainage Total 2050 ml Emesis 1095 ml Other 650 ml # Voids 4 # Bowel Movements 1 PABLO CHOI MD Jul 22, 2018 07:53
[2018-07-22] MEDS: POTASSIUM CHLORIDE 20 MEQ TABLET.ER. PO SCH (08:00)
[2018-07-22] MEDS: IV NORMAL SALINE 1000ML BAG 1,000 ML IV SCH ×2 (08:59→21:11)
[2018-07-22] MEDS: LISINOPRIL 10 MG TABLET PO SCH (09:00)
[2018-07-22] MEDS: AMOXICILLIN 250 MG CAPSULE. PO SCH ×2 (09:00→21:00)
[2018-07-22] MEDS: POLYETHYLENE GLYCOL 3350 17 GM PACKET. PO SCH ×2 (09:00→21:00)
[2018-07-22] MEDS: CLARITHROMYCIN 500 MG TABLET. PO SCH ×2 (09:00→21:00)
[2018-07-22] MEDS: ENOXAPARIN 40 MG/0.4 ML SYRINGE. SQ SCH ×2 (09:00→21:00)
[2018-07-22] MEDS: TOPIRAMATE 25 MG TABLET. PO SCH ×2 (09:00→21:00)
[2018-07-22] MEDS: LACTOBACILLUS RHAMNOSUS GG 1 CAPSULE. PO SCH (09:00)
[2018-07-22] MEDS: CETIRIZINE HCL 10 MG TABLET. PO SCH (09:00)
[2018-07-22] MEDS: OXcarbazepine 300 MG TABLET PO SCH ×2 (09:00→21:00)
--- NOTE | 2018-07-22 09:56 | PDOC ---
PROGRESS NOTES Assessment Problems Medical Problems: (1) Abdominal pain Status: Acute (2) Bandemia Status: Acute (3) Leukocytosis Status: Acute (4) Nausea vomiting and diarrhea Status: Acute (5) UTI (urinary tract infection) Status: Acute Epilepsy, follows at , no additional seizure S/P resection of cecal adenocarcinoma, s/p right colectomy. Plan Continue Trileptal. Continue Topamax 100 mg bid. Follow up with her neurologist Subjective Denies pain Objective Vital Signs Date Time Temp Pulse Resp B/P (MAP) Pulse Ox O2 Delivery O2 Flow Rate FiO2 07/22/18 07:38 96 Room Air 07/22/18 07:20 97.7 92 18 133/88 (103) 97.7 Intake and Output 07/22/18 07:00 Intake Total 1520 ml Output Total 3795 ml Balance -2275 ml Intake Oral 200 ml IV Total 660 ml Other 660 ml Gastric Drainage Total 2050 ml Emesis 1095 ml Other 650 ml # Voids 4 # Bowel Movements 1 PHYSICAL EXAM Still has NG in, is NPO Alert. Oriented to time, place and person. PERRL. EOMI. CN: no focal findings. Muscle tone: normal. Muscle strength: 5/5 DTR: 2+ Plantar reflex: flexor Gait: normal. Sensory exam: no abnormal findings. No cerebellar signs elicited. Review of Relevant I have reviewed the following items dawson (where applicable) has been applied. Labs Laboratory Tests Test 07/20/18 13:20 Urine Collection Type Unknown Urine Color Yellow Urine Clarity Clear Urine pH 5.5 Urine Specific [place] 1.020 Urine Protein Negative mg/dL (NEG-TRACE) Urine Glucose (UA) Negative mg/dL (NEG) Urine Ketones (Stick) Trace mg/dL (NEG) Urine Blood Trace (NEG) Urine Nitrite Negative (NEG) Urine Bilirubin Negative (NEG) Urine Urobilinogen Dipstick 0.2 mg/dL (0.2 mg/dL) Urine Leukocyte Esterase Moderate (NEG) Urine RBC Occ /HPF (0-2) Urine WBC 1-4 /HPF (0-4) Urine Squamous Epithelial Cells Many /LPF Urine Bacteria Moderate /HPF (0-FEW) Urine Mucus Marked /LPF Urine Yeast Present /HPF Microbiology 07/12/18 Urine Culture - Final, Complete 07/12/18 Urine Culture Result 1 (SHEBA) - Final, Complete Medications Current Medications Sodium Chloride 1,000 ml @ 1,000 mls/hr 1X ONCE IV Last administered on at 09:37; Start 07/12/18 at 09:15; Stop 07/12/18 at 10:14; Status DC Ondansetron HCl (Zofran) 4 mg 1X ONCE IV Last administered on 07/12/18at 09:43 ; Start 07/12/18 at 09:15; Stop 07/12/18 at 09:16; Status DC Dicyclomine HCl (Bentyl) 20 mg 1X ONCE IM Last administered on 07/12/18at 10:44 ; Start 07/12/18 at 09:15; Stop 07/12/18 at 09:16; Status DC Iohexol (Omnipaque 300 Mg/ml) 75 ml 1X ONCE IV Last administered on 07/12/18at 10:30; Start 07/12/18 at 10:30; Stop 07/12/18 at 10:32; Status DC Info (CONTRAST GIVEN -- Rx MONITORING) 1 each PRN DAILY PRN MC SEE COMMENTS; Start 07/12/18 at 10:45; Stop 07/14/18 at 10:44; Status DC Metronidazole 100 ml @ 100 mls/hr 1X ONCE IV Last administered on 07/12/18at 13:10; Start 07/12/18 at 12:30; Stop 07/12/18 at 13:29; Status DC Ciprofloxacin/ Dextrose 200 ml @ 200 mls/hr Q12HR IV Last administered on 07/12at 23:00; Start 07/12/18 at 13:30; Stop 07/13/18 at 08:57; Status DC Morphine Sulfate (Morphine Sulfate) 2 mg PRN Q2HR PRN IV SEVERE PAIN Last administered on 07/13/18at 16:10; Start 07/12/18 at 16:00; Stop 07/17/18 at 09:36 ; Status DC Atorvastatin Calcium (Lipitor) 20 mg HS PO Last administered on 07/21/18at 20:12 ; Start 07/12/18 at 21:00 Cetirizine HCl (ZyrTEC) 10 mg DAILY PO Last administered on 07/21/18at 10:32; Start 07/12/18 at 16:00 Lubiprostone (Amitiza) 8 mcg BID PO Last administered on 07/13/18at 08:23; Start 07/12/18 at 21:00; Stop 07/13/18 at 08:49; Status DC Lisinopril (Prinivil) 10 mg DAILY PO Last administered on 07/21/18at 10:31; Start 07/13/18 at 09:00 Oxcarbazepine (Trileptal) 300 mg BID PO Last administered on 07/13/18 08:23; Start 07/12/18 at 21:00; Stop 07/13/18 at 11:19; Status DC Polyethylene Glycol (miraLAX PACKET) 17 gm BID PO Last administered on at 10:32; Start 07/12/18 at 21:00 Topiramate (Topamax) 100 mg BID PO Last administered on 07/21/18at 20:08; Start 07/12/18 at 21:00 Hydrochlorothiazide (Microzide) 12.5 mg DAILY PO Last administered on at 11:44; Start 07/13/18 at 09:00; Stop 07/16/18 at 11:39; Status DC Ketorolac Tromethamine (Toradol 30mg Vial) 30 mg PRN Q6HRS PRN IV MILD - MODERATE PAIN; Start 07/12/18 at 20:00; Stop 07/17/18 at 19:59; Status DC Lactobacillus Rhamnosus (Culturelle) 1 cap BID PO Last administered on at 20:12; Start 07/13/18 at 09:00 Ciprofloxacin/ Dextrose 200 ml @ 200 mls/hr Q12H IV Last administered on at 10:49; Start 07/13/18 at 11:00; Stop 07/16/18 at 11:39; Status DC Metronidazole 100 ml @ 100 mls/hr Q8HRS IV Last administered on 07/16/18at 06: 09; Start 07/13/18 at 09:00; Stop 07/16/18 at 11:39; Status DC Potassium Chloride (Klor-Con) 40 meq 1X ONCE PO Last administered on at 09:26; Start 07/13/18 at 08:45; Stop 07/13/18 at 08:52; Status DC Potassium Chloride (Klor-Con) 40 meq DAILYWBKFT PO Last administered on 10:31; Start 07/14/18 at 08:00 Loperamide HCl (Imodium) 2 mg PRN Q15MIN PRN PO DIARRHEA Last administered on 09:40; Start 07/13/18 at 08:45 Ondansetron HCl (Zofran) 4 mg PRN Q6HRS PRN IV NAUSEA/VOMITING Last administered on 07/21/18 07:41; Start 07/13/18 at 08:45 Ondansetron HCl (Zofran Odt) 4 mg PRN Q6HRS PRN PO NAUSEA/VOMITING Last administered on 07/21/18 16:52; Start 07/13/18 at 08:45 Acetaminophen (Tylenol) 500 mg PRN Q6HRS PRN PO MILD PAIN / TEMP Last administered on 07/17/18 10:09; Start 07/13/18 at 08:45 Acetaminophen/ Hydrocodone Bitart (Lortab 5/325) 1 tab PRN Q4HRS PRN PO PAIN MODERATE TO SEVERE Last administered on 07/21/18 16:55; Start 07/13/18 at 08:45 Sodium Chloride 1,000 ml @ 100 mls/hr 1X ONCE IV Last administered on 09:33; Start 07/13/18 at 09:00; Stop 07/13/18 at 18:59; Status DC Oxcarbazepine (Trileptal) 900 mg BID PO Last administered on 07/21/18 20:08; Start 07/13/18 at 21:00 Bisacodyl (Dulcolax Tab) 10 mg 1X ONCE PO Last administered on 07/13/18 17:07 ; Start 07/13/18 at 17:00; Stop 07/13/18 at 17:01; Status DC Polyethylene Glycol (miraLAX Powder BULK BOTTLE) 238 gm 1X ONCE PO Last administered on 07/13/18 19:35; Start 07/13/18 at 19:00; Stop 07/13/18 at 19:01 ; Status DC Sodium Chloride (Normal Saline Flush) 3 ml QSHIFT PRN IV AFTER MEDS AND BLOOD DRAWS; Start 07/13/18 at 16:45 Sodium Chloride (Normal Saline Flush) 3 ml QSHIFT PRN IV AFTER MEDS AND BLOOD DRAWS; Start 07/13/18 at 16:45; Status UNV Benzocaine (Hurricaine One) 1 spray STK-MED ONCE .ROUTE ; Start 07/14/18 at 07: 58; Stop 07/14/18 at 07:59; Status DC Midazolam HCl (Versed) 5 mg STK-MED ONCE .ROUTE ; Start 07/14/18 at 07:59; Stop 07/14/18 at 08:00; Status DC Fentanyl Citrate (Fentanyl 2ml Vial) 100 mcg STK-MED ONCE .ROUTE ; Start at 07:59; Stop 07/14/18 at 08:00; Status DC Propofol 40 ml @ As Directed STK-MED ONCE IV ; Start 07/14/18 at 08:34; Stop at 08:35; Status DC Lidocaine HCl (Lidocaine Pf 2% Vial) 5 ml STK-MED ONCE .ROUTE ; Start 07/14/18 at 08:34; Stop 07/14/18 at 08:35; Status DC Cefazolin Sodium/ Dextrose 50 ml @ 100 mls/hr 1X PREOP PRN IV continuous process coffee roaster to OR Last administered on 07/15/18at 09:40; Start 07/15/18 at 06:00; Stop 07/15/18 at 18:00; Status DC Metronidazole 100 ml @ 100 mls/hr 1X PREOP PRN IV continuous process coffee roaster to OR; Start at 06:00; Stop 07/15/18 at 18:00; Status DC Fentanyl Citrate (Fentanyl 2ml Vial) 25 mcg PRN Q5MIN PRN IV MILD PAIN; Start 07/15/18 at 07:00; Stop 07/15/18 at 21:00; Status DC Fentanyl Citrate (Fentanyl 2ml Vial) 50 mcg PRN Q5MIN PRN IV MODERATE TO SEVERE PAIN Last administered on 07/15/18at 13:55; Start 07/15/18 at 07:00; Stop 07/15/18 at 21:00; Status DC Morphine Sulfate (Morphine Sulfate) 1 mg PRN Q10MIN PRN IV SEVERE PAIN; Start 07/15/18 at 07:00; Stop 07/15/18 at 21:00; Status DC Ringer's Solution 1,000 ml @ 30 mls/hr Q24H IV ; Start 07/15/18 at 07:00; Stop 07/15/18 at 18:59; Status DC Lidocaine HCl (Xylocaine-Mpf 1% 2ml Vial) 2 ml PRN 1X PRN ID IV START; Start at 07:00; Stop 07/15/18 at 21:00; Status DC Hydromorphone HCl (Dilaudid) 0.5 mg PRN Q10MIN PRN IV SEV PAIN, Second choice; Start 07/15/18 at 07:00; Stop 07/15/18 at 21:00; Status DC Prochlorperazine Edisylate (Compazine) 5 mg PACU PRN PRN IV NAUSEA, MRX1; Start 07/15/18 at 07:00; Stop 07/15/18 at 21:00; Status DC Epinephrine HCl (Adrenalin) 30 mg STK-MED ONCE .ROUTE ; Start 07/15/18 at 08:02 ; Stop 07/15/18 at 09:03; Status DC Bupivacaine HCl (Sensorcaine Mpf 0.25%) 30 ml STK-MED ONCE .ROUTE ; Start at 08:02; Stop 07/15/18 at 09:03; Status DC Sevoflurane (Ultane) 90 ml STK-MED ONCE IH ; Start 07/15/18 at 09:12; Stop 07/15 at 09:13; Status DC Midazolam HCl (Versed) 2 mg STK-MED ONCE .ROUTE ; Start 07/15/18 at 09:12; Stop 07/15/18 at 09:13; Status DC Fentanyl Citrate (Fentanyl 2ml Vial) 100 mcg STK-MED ONCE .ROUTE ; Start at 09:12; Stop 07/15/18 at 09:13; Status DC Glycopyrrolate (Robinul) 1 mg STK-MED ONCE .ROUTE ; Start 07/15/18 at 09:13; Stop 07/15/18 at 09:14; Status DC Neostigmine Methylsulfate (Neostigmine Methylsulfate) 5 mg STK-MED ONCE .ROUTE ; Start 07/15/18 at 09:13; Stop 07/15/18 at 09:14; Status DC Rocuronium [place] (Zemuron) 50 mg STK-MED ONCE .ROUTE ; Start 07/15/18 at 09:13 ; Stop 07/15/18 at 09:14; Status DC Dexamethasone Sodium Phosphate (Decadron) 20 mg STK-MED ONCE .ROUTE ; Start at 09:13; Stop 07/15/18 at 09:14; Status DC Ketorolac Tromethamine (Toradol For Or Only) 30 mg STK-MED ONCE INJ ; Start at 09:13; Stop 07/15/18 at 09:14; Status DC Propofol 20 ml @ As Directed STK-MED ONCE IV ; Start 07/15/18 at 09:13; Stop at 09:14; Status DC Ondansetron HCl (Zofran) 4 mg STK-MED ONCE .ROUTE ; Start 07/15/18 at 09:13; Stop 07/15/18 at 09:14; Status DC Phenylephrine HCl (PHENYLEPHRINE in 0.9% NACL PF) 1 mg STK-MED ONCE IV ; Start 07/15/18 at 09:53; Stop 07/15/18 at 09:54; Status DC Fentanyl Citrate (Fentanyl 2ml Vial) 100 mcg STK-MED ONCE .ROUTE ; Start at 10:05; Stop 07/15/18 at 10:06; Status DC Esmolol HCl (Brevibloc) 100 mg STK-MED ONCE IV ; Start 07/15/18 at 10:09; Stop 07/15/18 at 10:10; Status DC Rocuronium [place] (Zemuron) 50 mg STK-MED ONCE .ROUTE ; Start 07/15/18 at 10:10 ; Stop 07/15/18 at 10:11; Status DC Ephedrine Sulfate (ePHEDrine PF IN SALINE SYRINGE) 50 mg STK-MED ONCE IV ; Start 07/15/18 at 11:02; Stop 07/15/18 at 11:03; Status DC Fentanyl Citrate (Fentanyl 2ml Vial) 100 mcg STK-MED ONCE .ROUTE ; Start at 11:09; Stop 07/15/18 at 11:10; Status DC Fentanyl Citrate (Fentanyl 2ml Vial) 100 mcg STK-MED ONCE .ROUTE ; Start at 12:51; Stop 07/15/18 at 12:52; Status DC Morphine Sulfate 30 ml @ 0 mls/hr CONT PRN PRN IV PER PROTOCOL Last administered on 07/16/18at 19:50; Start 07/15/18 at 13:30; Stop 07/17/18 at 09:43 ; Status DC Fentanyl Citrate (Fentanyl 2ml Vial) 100 mcg STK-MED ONCE .ROUTE ; Start at 13:34; Stop 07/15/18 at 13:35; Status DC Throat Lozenges (Chloraseptic) 1 spray PRN Q3HRS PRN PO SORE THROAT Last administered on 07/21/18at 22:33; Start 07/15/18 at 21:45 Sodium Chloride 1,000 ml @ 1,000 mls/hr 1X ONCE IV Last administered on at 03:45; Start 07/16/18 at 03:45; Stop 07/16/18 at 04:44; Status DC Sodium Chloride 1,000 ml @ 125 mls/hr 1X ONCE IV ; Start 07/16/18 at 04:45; Stop 07/16/18 at 12:44; Status Cancel Sodium Chloride 1,000 ml @ 125 mls/hr Q8H IV Last administered on 07/20/18at 10 :04; Start 07/16/18 at 05:00; Stop 07/20/18 at 14:15; Status DC Enoxaparin Sodium (Lovenox 40mg Syringe) 40 mg Q24H SQ Last administered on at 13:42; Start 07/16/18 at 10:00; Stop 07/19/18 at 14:34; Status DC Albuterol/ Ipratropium (Duoneb) 3 ml RTQID NEB Last administered on 07/22/18at 07:37; Start 07/16/18 at 12:00 Albuterol Sulfate (Ventolin Neb Soln) 2.5 mg PRN Q4HRS PRN NEB SHORTNESS OF BREATH Last administered on 07/21/18at 03:55; Start 07/16/18 at 11:45 Al Hydroxide/Mg Hydroxide (Mylanta Plus Xs) 30 ml PRN Q2HR PRN PO HEARTBURN / GAS; Start 07/16/18 at 22:00; Stop 07/16/18 at 22:00; Status DC Famotidine (Pepcid) 20 mg QHS PO ; Start 07/17/18 at 21:00; Stop 07/17/18 at 21: 00; Status DC Famotidine (Pepcid) 20 mg 1X ONCE PO ; Start 07/16/18 at 22:00; Stop 07/16/18 at 22:00; Status DC Famotidine (Pepcid Vial) 20 mg QHS IVP Last administered on 07/17/18at 21:16; Start 07/17/18 at 21:00; Stop 07/18/18 at 08:21; Status DC Famotidine (Pepcid Vial) 20 mg 1X ONCE IVP Last administered on 07/16/18at 22: 38; Start 07/16/18 at 22:30; Stop 07/16/18 at 22:31; Status DC Iron Sucrose 200 mg/Sodium Chloride 110 ml @ 55 mls/hr DAILY IV Last administered on 07/21/18at 10:27; Start 07/17/18 at 12:30; Stop 07/21/18 at 12:29 ; Status DC Calcium Carbonate/ Glycine (Tums) 500 mg PRN AFTMEALHC PRN PO INDIGESTION Last administered on 07/18/18at 16:30; Start 07/17/18 at 21:15 Iohexol (Omnipaque 300 Mg/ml) 75 ml 1X ONCE IV Last administered on 07/18/18at 08:15; Start 07/18/18 at 08:15; Stop 07/18/18 at 08:16; Status DC Info (CONTRAST GIVEN -- Rx MONITORING) 1 each PRN DAILY PRN MC SEE COMMENTS; Start 07/18/18 at 08:15; Stop 07/20/18 at 08:14; Status DC Famotidine (Pepcid Vial) 20 mg BID IVP Last administered on 07/21/18at 07:41; Start 07/18/18 at 09:00; Stop 07/21/18 at 11:57; Status DC Multi-Ingredient Mouthwash/Gargle (Gi Cocktail) 20 ml PRN QID PRN PO CHEST PAIN Last administered on 07/18/18at 13:57; Start 07/18/18 at 12:00; Stop at 13:11; Status DC Enoxaparin Sodium (Lovenox 40mg Syringe) 40 mg Q12HR SQ Last administered on at 10:32; Start 07/19/18 at 21:00 Prochlorperazine Edisylate (Compazine) 10 mg PRN Q6HRS PRN IV NAUSEA/VOMITING Last administered on 07/21/18at 17:48; Start 07/21/18 at 10:15 Amoxicillin (Amoxil) 1,000 mg BID PO Last administered on 07/21/18at 20:08; Start 07/21/18 at 12:30 Clarithromycin (Biaxin) 500 mg BID PO Last administered on 07/21/18at 20:08; Start 07/21/18 at 12:30 Pantoprazole Sodium (Protonix) 40 mg BIDAC PO Last administered on 07/21/18at 16 :52; Start 07/21/18 at 16:30 Fentanyl Citrate (Fentanyl 2ml Vial) 50 mcg PRN Q2HR PRN IV PAIN; Start at 22:30 Morphine Sulfate (Morphine Sulfate) 2 mg PRN Q2HR PRN IV PAIN Last administered on 07/21/18at 22:33; Start 07/21/18 at 22:30 Sodium Chloride 1,000 ml @ 100 mls/hr Q10H IV Last administered on 07/22/18at 08:59; Start 07/21/18 at 22:30 Active Scripts Active Oxcarbazepine 300 Mg Tablet 900 Mg PO BID 30 Days Hydrocodone-Apap 5-325 (Hydrocodone Bit/Acetaminophen) 1 Each Tablet 1 Tab PO PRN Q4HRS PRN 14 Days Ondansetron Odt (Ondansetron) 4 Mg Tab.rapdis 4 Mg PO PRN Q6HRS PRN 14 Days Reported Advair 250-50 Diskus (Fluticasone/Salmeterol) 1 Each Disk.w.dev 1 Puff IH BID Proair Hfa Inhaler (Albuterol Sulfate) 8.5 Gm Hfa.aer.ad 1 Puff INH PRN Q6HRS PRN Miralax (Polyethylene Glycol 3350) 17 Gm Powd.pack 1 Packet PO BID Zyrtec (Cetirizine Hcl) 10 Mg Tablet 1 Tab PO DAILY Atorvastatin Calcium 20 Mg Tablet 20 Mg PO HS Topiramate 100 Mg Tablet 1 Tab PO BID Lisinopril-Hctz 10-12.5 Mg Tab (Lisinopril/Hydrochlorothiazide) 1 Each Tablet 1 Tab PO DAILY Vitals/I & O Vital Sign - Last 24 Hours 07/21/18 07/21/18 07/21/18 07/21/18 10:31 11:00 11:25 15:00 Temp 98.3 98.7 98.3 98.7 Pulse 97 95 96 Resp 18 18 B/P (MAP) 140/95 141/100 (114) 137/96 (110) Pulse Ox 97 95 96 O2 Delivery Room Air Room Air Room Air 07/21/18 07/21/18 07/21/18 07/21/18 16:55 18:00 19:00 19:35 Temp 98.2 98.2 Pulse 88 Resp 14 16 18 B/P (MAP) 135/90 (105) Pulse Ox 96 O2 Delivery Room Air Room Air Room Air Room Air 07/21/18 07/21/18 07/21/18 07/21/18 20:26 22:33 23:00 23:05 Temp 97.9 97.9 Pulse 92 Resp 16 18 16 B/P (MAP) 129/85 (100) Pulse Ox 97 O2 Delivery Room Air Room Air Room Air Room Air 07/22/18 07/22/18 07/22/18 07/22/18 03:00 07:15 07:20 07:38 Temp 97.7 97.7 97.7 97.7 Pulse 70 92 Resp 18 18 B/P (MAP) 126/80 (95) 133/88 (103) Pulse Ox 98 94 96 O2 Delivery Room Air Room Air Room Air Room Air Intake and Output 07/21/18 07/21/18 07/22/18 15:00 23:00 07:00 Intake Total 100 ml 1420 ml Output Total 945 ml 2850 ml Balance -845 ml -1430 ml ANY DUENAS MD Jul 22, 2018 09:56
[2018-07-22 10:32] VITALS: BP 131/86
--- NOTE | 2018-07-22 11:04 | PDOC ---
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 Nonobstructing left intrarenal calculi. Enlarged fibroid uterus. Probable renal cysts. asthma HTN morbid obesity h/o seizure AMS at hosp, with TMD TEACHER ASSISTANT likely gastric bx + h pylori D/C HELD DUE TO EMESIS plan: fu wiht sx,off TMD TEACHER ASSISTANT , NGT dc hctz, monitor bp, lisinopril for now dvt ppx add duoneb, albuterol prn cont seizure meds, neuro consulted for AMS dc abx onco consulted, garsia CT for staging, no obvious mets on image? h pylori treatment defer to GI talked to pt about the path and h pylori, however, pt seems has problem to understand. ok for d/c Saturday History of Present Illness History of Present Illness Out having surgery for colon mass which is a new diagnosis- dx after EGD colonoscopy this admission CAT scan: 1. Mural thickening involving the colon in the ileocecal valve region raising the possibility of colonic malignancy. An inflammatory process cannot be excluded. There is mild associated dilatation of the distal small bowel and mild mesenteric adenopathy at this level. 2. Small amount of free fluid in the pelvis. 3. Cholelithiasis. 4. Nonobstructing left intrarenal calculi. 5. Enlarged fibroid uterus. 6. Probable renal cysts. has 2 times BM 07/17 as per pt very confused 07/16 night, TMD TEACHER ASSISTANT stopped. pain is ok pt has some dementia or cognitive impairement, no remember what i told her Vitals Vitals Vital Signs Date Time Temp Pulse Resp B/P (MAP) Pulse Ox O2 Delivery O2 Flow Rate FiO2 07/22/18 10:32 97.7 94 20 131/86 (101) 94 Room Air 97.7 Physical Exam General: Alert, Oriented X3, Cooperative, No acute distress, mild distress Heart: Regular rate, Normal S1, Normal S2, No murmurs Lungs: Clear Abdomen: Soft, Other (dressing dry, binder in place) Extremities: No clubbing, No cyanosis, Normal pulses Skin: No rashes, No breakdown Assessment and Plan Assessmemt and Plan Problems Medical Problems: (1) Abdominal pain Status: Acute (2) Bandemia Status: Acute (3) Leukocytosis Status: Acute (4) Nausea vomiting and diarrhea Status: Acute (5) UTI (urinary tract infection) Status: Acute Comment Review of Relevant I have reviewed the following items dawson (where applicable) has been applied. Labs Laboratory Tests Test 07/20/18 13:20 Urine Collection Type Unknown Urine Color Yellow Urine Clarity Clear Urine pH 5.5 Urine Specific [place] 1.020 Urine Protein Negative mg/dL (NEG-TRACE) Urine Glucose (UA) Negative mg/dL (NEG) Urine Ketones (Stick) Trace mg/dL (NEG) Urine Blood Trace (NEG) Urine Nitrite Negative (NEG) Urine Bilirubin Negative (NEG) Urine Urobilinogen Dipstick 0.2 mg/dL (0.2 mg/dL) Urine Leukocyte Esterase Moderate (NEG) Urine RBC Occ /HPF (0-2) Urine WBC 1-4 /HPF (0-4) Urine Squamous Epithelial Cells Many /LPF Urine Bacteria Moderate /HPF (0-FEW) Urine Mucus Marked /LPF Urine Yeast Present /HPF Microbiology 07/12/18 Urine Culture - Final, Complete 07/12/18 Urine Culture Result 1 (SHEBA) - Final, Complete Medications Current Medications Sodium Chloride 1,000 ml @ 1,000 mls/hr 1X ONCE IV Last administered on at 09:37; Start 07/12/18 at 09:15; Stop 07/12/18 at 10:14; Status DC Ondansetron HCl (Zofran) 4 mg 1X ONCE IV Last administered on 07/12/18at 09:43 ; Start 07/12/18 at 09:15; Stop 07/12/18 at 09:16; Status DC Dicyclomine HCl (Bentyl) 20 mg 1X ONCE IM Last administered on 07/12/18at 10:44 ; Start 07/12/18 at 09:15; Stop 07/12/18 at 09:16; Status DC Iohexol (Omnipaque 300 Mg/ml) 75 ml 1X ONCE IV Last administered on 07/12/18at 10:30; Start 07/12/18 at 10:30; Stop 07/12/18 at 10:32; Status DC Info (CONTRAST GIVEN -- Rx MONITORING) 1 each PRN DAILY PRN MC SEE COMMENTS; Start 07/12/18 at 10:45; Stop 07/14/18 at 10:44; Status DC Metronidazole 100 ml @ 100 mls/hr 1X ONCE IV Last administered on 07/12/18at 13:10; Start 07/12/18 at 12:30; Stop 07/12/18 at 13:29; Status DC Ciprofloxacin/ Dextrose 200 ml @ 200 mls/hr Q12HR IV Last administered on 07/12at 23:00; Start 07/12/18 at 13:30; Stop 07/13/18 at 08:57; Status DC Morphine Sulfate (Morphine Sulfate) 2 mg PRN Q2HR PRN IV SEVERE PAIN Last administered on 07/13/18at 16:10; Start 07/12/18 at 16:00; Stop 07/17/18 at 09:36 ; Status DC Atorvastatin Calcium (Lipitor) 20 mg HS PO Last administered on 07/21/18at 20:12 ; Start 07/12/18 at 21:00 Cetirizine HCl (ZyrTEC) 10 mg DAILY PO Last administered on 07/21/18at 10:32; Start 07/12/18 at 16:00 Lubiprostone (Amitiza) 8 mcg BID PO Last administered on 07/13/18at 08:23; Start 07/12/18 at 21:00; Stop 07/13/18 at 08:49; Status DC Lisinopril (Prinivil) 10 mg DAILY PO Last administered on 07/21/18at 10:31; Start 07/13/18 at 09:00 Oxcarbazepine (Trileptal) 300 mg BID PO Last administered on 07/13/18at 08:23; Start 07/12/18 at 21:00; Stop 07/13/18 at 11:19; Status DC Polyethylene Glycol (miraLAX PACKET) 17 gm BID PO Last administered on at 10:32; Start 07/12/18 at 21:00 Topiramate (Topamax) 100 mg BID PO Last administered on 07/21/18at 20:08; Start 07/12/18 at 21:00 Hydrochlorothiazide (Microzide) 12.5 mg DAILY PO Last administered on at 11:44; Start 07/13/18 at 09:00; Stop 07/16/18 at 11:39; Status DC Ketorolac Tromethamine (Toradol 30mg Vial) 30 mg PRN Q6HRS PRN IV MILD - MODERATE PAIN; Start 07/12/18 at 20:00; Stop 07/17/18 at 19:59; Status DC Lactobacillus Rhamnosus (Culturelle) 1 cap BID PO Last administered on 20:12; Start 07/13/18 at 09:00 Ciprofloxacin/ Dextrose 200 ml @ 200 mls/hr Q12H IV Last administered on 10:49; Start 07/13/18 at 11:00; Stop 07/16/18 at 11:39; Status DC Metronidazole 100 ml @ 100 mls/hr Q8HRS IV Last administered on 07/16/18 06: 09; Start 07/13/18 at 09:00; Stop 07/16/18 at 11:39; Status DC Potassium Chloride (Klor-Con) 40 meq 1X ONCE PO Last administered on 09:26; Start 07/13/18 at 08:45; Stop 07/13/18 at 08:52; Status DC Potassium Chloride (Klor-Con) 40 meq DAILYWBKFT PO Last administered on 10:31; Start 07/14/18 at 08:00 Loperamide HCl (Imodium) 2 mg PRN Q15MIN PRN PO DIARRHEA Last administered on 09:40; Start 07/13/18 at 08:45 Ondansetron HCl (Zofran) 4 mg PRN Q6HRS PRN IV NAUSEA/VOMITING Last administered on 07/21/18 07:41; Start 07/13/18 at 08:45 Ondansetron HCl (Zofran Odt) 4 mg PRN Q6HRS PRN PO NAUSEA/VOMITING Last administered on 07/21/18 16:52; Start 07/13/18 at 08:45 Acetaminophen (Tylenol) 500 mg PRN Q6HRS PRN PO MILD PAIN / TEMP Last administered on 07/17/18 10:09; Start 07/13/18 at 08:45 Acetaminophen/ Hydrocodone Bitart (Lortab 5/325) 1 tab PRN Q4HRS PRN PO PAIN MODERATE TO SEVERE Last administered on 07/21/18 16:55; Start 07/13/18 at 08:45 Sodium Chloride 1,000 ml @ 100 mls/hr 1X ONCE IV Last administered on 9/16/ 18at 09:33; Start 07/13/18 at 09:00; Stop 07/13/18 at 18:59; Status DC Oxcarbazepine (Trileptal) 900 mg BID PO Last administered on 07/21/18at 20:08; Start 07/13/18 at 21:00 Bisacodyl (Dulcolax Tab) 10 mg 1X ONCE PO Last administered on 07/13/18at 17:07 ; Start 07/13/18 at 17:00; Stop 07/13/18 at 17:01; Status DC Polyethylene Glycol (miraLAX Powder BULK BOTTLE) 238 gm 1X ONCE PO Last administered on 07/13/18at 19:35; Start 07/13/18 at 19:00; Stop 07/13/18 at 19:01 ; Status DC Sodium Chloride (Normal Saline Flush) 3 ml QSHIFT PRN IV AFTER MEDS AND BLOOD DRAWS; Start 07/13/18 at 16:45 Sodium Chloride (Normal Saline Flush) 3 ml QSHIFT PRN IV AFTER MEDS AND BLOOD DRAWS; Start 07/13/18 at 16:45; Status UNV Benzocaine (Hurricaine One) 1 spray STK-MED ONCE .ROUTE ; Start 07/14/18 at 07: 58; Stop 07/14/18 at 07:59; Status DC Midazolam HCl (Versed) 5 mg STK-MED ONCE .ROUTE ; Start 07/14/18 at 07:59; Stop 07/14/18 at 08:00; Status DC Fentanyl Citrate (Fentanyl 2ml Vial) 100 mcg STK-MED ONCE .ROUTE ; Start at 07:59; Stop 07/14/18 at 08:00; Status DC Propofol 40 ml @ As Directed STK-MED ONCE IV ; Start 07/14/18 at 08:34; Stop at 08:35; Status DC Lidocaine HCl (Lidocaine Pf 2% Vial) 5 ml STK-MED ONCE .ROUTE ; Start 07/14/18 at 08:34; Stop 07/14/18 at 08:35; Status DC Cefazolin Sodium/ Dextrose 50 ml @ 100 mls/hr 1X PREOP PRN IV transmission and coordination engineer to OR Last administered on 07/15/18at 09:40; Start 07/15/18 at 06:00; Stop 07/15/18 at 18:00; Status DC Metronidazole 100 ml @ 100 mls/hr 1X PREOP PRN IV transmission and coordination engineer to OR; Start at 06:00; Stop 07/15/18 at 18:00; Status DC Fentanyl Citrate (Fentanyl 2ml Vial) 25 mcg PRN Q5MIN PRN IV MILD PAIN; Start 07/15/18 at 07:00; Stop 07/15/18 at 21:00; Status DC Fentanyl Citrate (Fentanyl 2ml Vial) 50 mcg PRN Q5MIN PRN IV MODERATE TO SEVERE PAIN Last administered on 07/15/18at 13:55; Start 07/15/18 at 07:00; Stop 07/15/18 at 21:00; Status DC Morphine Sulfate (Morphine Sulfate) 1 mg PRN Q10MIN PRN IV SEVERE PAIN; Start 07/15/18 at 07:00; Stop 07/15/18 at 21:00; Status DC Ringer's Solution 1,000 ml @ 30 mls/hr Q24H IV ; Start 07/15/18 at 07:00; Stop 07/15/18 at 18:59; Status DC Lidocaine HCl (Xylocaine-Mpf 1% 2ml Vial) 2 ml PRN 1X PRN ID IV START; Start at 07:00; Stop 07/15/18 at 21:00; Status DC Hydromorphone HCl (Dilaudid) 0.5 mg PRN Q10MIN PRN IV SEV PAIN, Second choice; Start 07/15/18 at 07:00; Stop 07/15/18 at 21:00; Status DC Prochlorperazine Edisylate (Compazine) 5 mg PACU PRN PRN IV NAUSEA, MRX1; Start 07/15/18 at 07:00; Stop 07/15/18 at 21:00; Status DC Epinephrine HCl (Adrenalin) 30 mg STK-MED ONCE .ROUTE ; Start 07/15/18 at 08:02 ; Stop 07/15/18 at 09:03; Status DC Bupivacaine HCl (Sensorcaine Mpf 0.25%) 30 ml STK-MED ONCE .ROUTE ; Start at 08:02; Stop 07/15/18 at 09:03; Status DC Sevoflurane (Ultane) 90 ml STK-MED ONCE IH ; Start 07/15/18 at 09:12; Stop 07/15 at 09:13; Status DC Midazolam HCl (Versed) 2 mg STK-MED ONCE .ROUTE ; Start 07/15/18 at 09:12; Stop 07/15/18 at 09:13; Status DC Fentanyl Citrate (Fentanyl 2ml Vial) 100 mcg STK-MED ONCE .ROUTE ; Start at 09:12; Stop 07/15/18 at 09:13; Status DC Glycopyrrolate (Robinul) 1 mg STK-MED ONCE .ROUTE ; Start 07/15/18 at 09:13; Stop 07/15/18 at 09:14; Status DC Neostigmine Methylsulfate (Neostigmine Methylsulfate) 5 mg STK-MED ONCE .ROUTE ; Start 07/15/18 at 09:13; Stop 07/15/18 at 09:14; Status DC Rocuronium [place] (Zemuron) 50 mg STK-MED ONCE .ROUTE ; Start 07/15/18 at 09:13 ; Stop 07/15/18 at 09:14; Status DC Dexamethasone Sodium Phosphate (Decadron) 20 mg STK-MED ONCE .ROUTE ; Start at 09:13; Stop 07/15/18 at 09:14; Status DC Ketorolac Tromethamine (Toradol For Or Only) 30 mg STK-MED ONCE INJ ; Start at 09:13; Stop 07/15/18 at 09:14; Status DC Propofol 20 ml @ As Directed STK-MED ONCE IV ; Start 07/15/18 at 09:13; Stop at 09:14; Status DC Ondansetron HCl (Zofran) 4 mg STK-MED ONCE .ROUTE ; Start 07/15/18 at 09:13; Stop 07/15/18 at 09:14; Status DC Phenylephrine HCl (PHENYLEPHRINE in 0.9% NACL PF) 1 mg STK-MED ONCE IV ; Start 07/15/18 at 09:53; Stop 07/15/18 at 09:54; Status DC Fentanyl Citrate (Fentanyl 2ml Vial) 100 mcg STK-MED ONCE .ROUTE ; Start at 10:05; Stop 07/15/18 at 10:06; Status DC Esmolol HCl (Brevibloc) 100 mg STK-MED ONCE IV ; Start 07/15/18 at 10:09; Stop 07/15/18 at 10:10; Status DC Rocuronium [place] (Zemuron) 50 mg STK-MED ONCE .ROUTE ; Start 07/15/18 at 10:10 ; Stop 07/15/18 at 10:11; Status DC Ephedrine Sulfate (ePHEDrine PF IN SALINE SYRINGE) 50 mg STK-MED ONCE IV ; Start 07/15/18 at 11:02; Stop 07/15/18 at 11:03; Status DC Fentanyl Citrate (Fentanyl 2ml Vial) 100 mcg STK-MED ONCE .ROUTE ; Start at 11:09; Stop 07/15/18 at 11:10; Status DC Fentanyl Citrate (Fentanyl 2ml Vial) 100 mcg STK-MED ONCE .ROUTE ; Start at 12:51; Stop 07/15/18 at 12:52; Status DC Morphine Sulfate 30 ml @ 0 mls/hr CONT PRN PRN IV PER PROTOCOL Last administered on 07/16/18at 19:50; Start 07/15/18 at 13:30; Stop 07/17/18 at 09:43 ; Status DC Fentanyl Citrate (Fentanyl 2ml Vial) 100 mcg STK-MED ONCE .ROUTE ; Start at 13:34; Stop 07/15/18 at 13:35; Status DC Throat Lozenges (Chloraseptic) 1 spray PRN Q3HRS PRN PO SORE THROAT Last administered on 07/21/18at 22:33; Start 07/15/18 at 21:45 Sodium Chloride 1,000 ml @ 1,000 mls/hr 1X ONCE IV Last administered on at 03:45; Start 07/16/18 at 03:45; Stop 07/16/18 at 04:44; Status DC Sodium Chloride 1,000 ml @ 125 mls/hr 1X ONCE IV ; Start 07/16/18 at 04:45; Stop 07/16/18 at 12:44; Status Cancel Sodium Chloride 1,000 ml @ 125 mls/hr Q8H IV Last administered on 07/20/18at 10 :04; Start 07/16/18 at 05:00; Stop 07/20/18 at 14:15; Status DC Enoxaparin Sodium (Lovenox 40mg Syringe) 40 mg Q24H SQ Last administered on at 13:42; Start 07/16/18 at 10:00; Stop 07/19/18 at 14:34; Status DC Albuterol/ Ipratropium (Duoneb) 3 ml RTQID NEB Last administered on 07/22/18at 07:37; Start 07/16/18 at 12:00 Albuterol Sulfate (Ventolin Neb Soln) 2.5 mg PRN Q4HRS PRN NEB SHORTNESS OF BREATH Last administered on 07/21/18at 03:55; Start 07/16/18 at 11:45 Al Hydroxide/Mg Hydroxide (Mylanta Plus Xs) 30 ml PRN Q2HR PRN PO HEARTBURN / GAS; Start 07/16/18 at 22:00; Stop 07/16/18 at 22:00; Status DC Famotidine (Pepcid) 20 mg QHS PO ; Start 07/17/18 at 21:00; Stop 07/17/18 at 21: 00; Status DC Famotidine (Pepcid) 20 mg 1X ONCE PO ; Start 07/16/18 at 22:00; Stop 07/16/18 at 22:00; Status DC Famotidine (Pepcid Vial) 20 mg QHS IVP Last administered on 07/17/18at 21:16; Start 07/17/18 at 21:00; Stop 07/18/18 at 08:21; Status DC Famotidine (Pepcid Vial) 20 mg 1X ONCE IVP Last administered on 07/16/18at 22: 38; Start 07/16/18 at 22:30; Stop 07/16/18 at 22:31; Status DC Iron Sucrose 200 mg/Sodium Chloride 110 ml @ 55 mls/hr DAILY IV Last administered on 07/21/18at 10:27; Start 07/17/18 at 12:30; Stop 07/21/18 at 12:29 ; Status DC Calcium Carbonate/ Glycine (Tums) 500 mg PRN AFTMEALHC PRN PO INDIGESTION Last administered on 07/18/18at 16:30; Start 07/17/18 at 21:15 Iohexol (Omnipaque 300 Mg/ml) 75 ml 1X ONCE IV Last administered on 07/18/18at 08:15; Start 07/18/18 at 08:15; Stop 07/18/18 at 08:16; Status DC Info (CONTRAST GIVEN -- Rx MONITORING) 1 each PRN DAILY PRN MC SEE COMMENTS; Start 07/18/18 at 08:15; Stop 07/20/18 at 08:14; Status DC Famotidine (Pepcid Vial) 20 mg BID IVP Last administered on 07/21/18at 07:41; Start 07/18/18 at 09:00; Stop 07/21/18 at 11:57; Status DC Multi-Ingredient Mouthwash/Gargle (Gi Cocktail) 20 ml PRN QID PRN PO CHEST PAIN Last administered on 07/18/18at 13:57; Start 07/18/18 at 12:00; Stop at 13:11; Status DC Enoxaparin Sodium (Lovenox 40mg Syringe) 40 mg Q12HR SQ Last administered on at 10:32; Start 07/19/18 at 21:00 Prochlorperazine Edisylate (Compazine) 10 mg PRN Q6HRS PRN IV NAUSEA/VOMITING Last administered on 07/21/18at 17:48; Start 07/21/18 at 10:15 Amoxicillin (Amoxil) 1,000 mg BID PO Last administered on 07/21/18at 20:08; Start 07/21/18 at 12:30 Clarithromycin (Biaxin) 500 mg BID PO Last administered on 07/21/18at 20:08; Start 07/21/18 at 12:30 Pantoprazole Sodium (Protonix) 40 mg BIDAC PO Last administered on 07/21/18at 16 :52; Start 07/21/18 at 16:30 Fentanyl Citrate (Fentanyl 2ml Vial) 50 mcg PRN Q2HR PRN IV PAIN; Start at 22:30 Morphine Sulfate (Morphine Sulfate) 2 mg PRN Q2HR PRN IV PAIN Last administered on 07/21/18at 22:33; Start 07/21/18 at 22:30 Sodium Chloride 1,000 ml @ 100 mls/hr Q10H IV Last administered on 07/22/18at 08:59; Start 07/21/18 at 22:30 Active Scripts Active Oxcarbazepine 300 Mg Tablet 900 Mg PO BID 30 Days Hydrocodone-Apap 5-325 (Hydrocodone Bit/Acetaminophen) 1 Each Tablet 1 Tab PO PRN Q4HRS PRN 14 Days Ondansetron Odt (Ondansetron) 4 Mg Tab.rapdis 4 Mg PO PRN Q6HRS PRN 14 Days Reported Advair 250-50 Diskus (Fluticasone/Salmeterol) 1 Each Disk.w.dev 1 Puff IH BID Proair Hfa Inhaler (Albuterol Sulfate) 8.5 Gm Hfa.aer.ad 1 Puff INH PRN Q6HRS PRN Miralax (Polyethylene Glycol 3350) 17 Gm Powd.pack 1 Packet PO BID Zyrtec (Cetirizine Hcl) 10 Mg Tablet 1 Tab PO DAILY Atorvastatin Calcium 20 Mg Tablet 20 Mg PO HS Topiramate 100 Mg Tablet 1 Tab PO BID Lisinopril-Hctz 10-12.5 Mg Tab (Lisinopril/Hydrochlorothiazide) 1 Each Tablet 1 Tab PO DAILY Vitals/I & O Vital Sign - Last 24 Hours 07/21/18 07/21/18 07/21/18 07/21/18 11:25 15:00 16:55 18:00 Temp 98.7 98.7 Pulse 96 Resp 18 14 16 B/P (MAP) 137/96 (110) Pulse Ox 95 96 O2 Delivery Room Air Room Air Room Air Room Air 07/21/18 07/21/18 07/21/18 07/21/18 19:00 19:35 20:26 22:33 Temp 98.2 98.2 Pulse 88 Resp 18 16 B/P (MAP) 135/90 (105) Pulse Ox 96 O2 Delivery Room Air Room Air Room Air Room Air 07/21/18 07/21/18 07/22/18 07/22/18 23:00 23:05 03:00 07:15 Temp 97.9 97.7 97.9 97.7 Pulse 92 70 Resp 18 16 18 B/P (MAP) 129/85 (100) 126/80 (95) Pulse Ox 97 98 O2 Delivery Room Air Room Air Room Air Room Air 07/22/18 07/22/18 07/22/18 07:20 07:38 10:32 Temp 97.7 97.7 97.7 97.7 Pulse 92 94 Resp 18 20 B/P (MAP) 133/88 (103) 131/86 (101) Pulse Ox 94 96 94 O2 Delivery Room Air Room Air Room Air Intake and Output 07/21/18 07/21/18 07/22/18 15:00 23:00 07:00 Intake Total 100 ml 1420 ml Output Total 945 ml 2850 ml Balance -845 ml -1430 ml RAJAT OROURKE MD Jul 22, 2018 11:04
--- NOTE | 2018-07-22 11:46 | PDOC ---
ISAAC COLE WET MIX OPERATOR 07/22/18 1145: SURGICAL PROGRESS NOTE Subjective better with NG some liquid stool material, minimal flatus Vital Signs Vital Signs Date Time Temp Pulse Resp B/P (MAP) Pulse Ox O2 Delivery O2 Flow Rate FiO2 07/22/18 11:23 95 Room Air 07/22/18 10:32 97.7 94 20 131/86 (101) 97.7 I&O Intake and Output 07/22/18 07:00 Intake Total 1520 ml Output Total 3795 ml Balance -2275 ml Intake Oral 200 ml IV Total 660 ml Other 660 ml Gastric Drainage Total 2050 ml Emesis 1095 ml Other 650 ml # Voids 4 # Bowel Movements 1 General: Alert, Oriented X3, Cooperative, No acute distress HEENT: Other (ng brownish drainage) Abdomen: Soft, Other (incision c/d/i, no erythema ) Labs Laboratory Tests Test 07/20/18 13:20 Urine Collection Type Unknown Urine Color Yellow Urine Clarity Clear Urine pH 5.5 Urine Specific [place] 1.020 Urine Protein Negative mg/dL (NEG-TRACE) Urine Glucose (UA) Negative mg/dL (NEG) Urine Ketones (Stick) Trace mg/dL (NEG) Urine Blood Trace (NEG) Urine Nitrite Negative (NEG) Urine Bilirubin Negative (NEG) Urine Urobilinogen Dipstick 0.2 mg/dL (0.2 mg/dL) Urine Leukocyte Esterase Moderate (NEG) Urine RBC Occ /HPF (0-2) Urine WBC 1-4 /HPF (0-4) Urine Squamous Epithelial Cells Many /LPF Urine Bacteria Moderate /HPF (0-FEW) Urine Mucus Marked /LPF Urine Yeast Present /HPF Problem List Problems Medical Problems: (1) Abdominal pain Status: Acute (2) Bandemia Status: Acute (3) Leukocytosis Status: Acute (4) Nausea vomiting and diarrhea Status: Acute (5) UTI (urinary tract infection) Status: Acute Assessment/Plan s/p resection will continue NG decompression today will check xrays in AM ROSHAN MANN MD 07/22/18 2263: SURGICAL PROGRESS NOTE Assessment/Plan Agree with above ISAAC COLE WET MIX OPERATOR Jul 22, 2018 11:45 ROSHAN MANN MD Jul 22, 2018 21:57
--- NOTE | 2018-07-22 13:19 | PDOC ---
Subjective: Subjective: Asks who I am (like everyday), says feeling better w/ NGT. Objective: Objective: DC held yesterday for vomiting - now w/ NGT, significant output. RN says still having loose stools. Vital Signs: Vital Signs Date Time Temp Pulse Resp B/P (MAP) Pulse Ox O2 Delivery O2 Flow Rate FiO2 07/22/18 11:23 95 Room Air 07/22/18 10:32 97.7 94 20 131/86 (101) 97.7 PE: GEN: NAD HEENT: NG w/ dark thick output (~800cc when I saw) LUNGS: CTAB HEART: RRR ABD: soft NEURO/PSYCH: A & O 3 A/P: Cecal adenocarcinoma s/p right colon resection - still no surg path report H. pylori gastritis - started treatment yesterday, now held Anemia - on IV iron -- NGT per surgery, plans for x-ray tomorrow. ARVIND HUERTA Jul 22, 2018 13:18
[2018-07-22 14:09] VITALS: BP 132/93
--- NOTE | 2018-07-22 15:08 | PATHOLOGY ---
[facility] Accession Number: [id number] . 01 Material submitted: . PART A: RIGHT COLON PART B: MARGIN ON DUODENUM . 01 Clinical history: . Obstructing cecal mass . 02 Diagnosis: A. Distal ileum, cecum, and ascending colon with attached mesocolon, right hemicolectomy: - UNDIFFERENTIATED COLORECTAL ADENOCARCINOMA, INVASIVE, FORMING A CIRCUMFERENTIAL, OBSTRUCTING, CENTRALLY ULCERATED AND NECROTIC TUMOR MASS OF THE PROXIMAL ASCDENDING COLON MEASURING UP TO 6.0 CM IN LENGTH, WITH TUMOR INVASION THROUGH THE MUSCULARIS PROPRIA INTO SUBSEROSA AND MESOCOLIC SOFT TISSUES. - METASTATIC CARCINOMA INVOLVING THREE OF TWENTY-SIX MESOCOLIC LYMPH NODES. - Closest circumferential radial mesocolic margin of resection negative for tumor. - Proximal (distal ileum) and distal (ascending colon) margins of resection negative for tumor. - Serosal adhesions of ascending colon and cecum. - Focal tattooing of colon distal to tumor. - Adiposity of ileocecal valve. - Involutional changes of appendix. . B. Fibroadipose tissue, designated "margin on duodenum": - Focal fibrosis and patchy chronic inflammation - negative for tumor. (JPM/db; 07/17/18) . . Surgical Pathology Cancer Case Summary . COLON AND RECTUM: . . Procedure __ Right hemicolectomy . Tumor Site __ Right (ascending) colon . Tumor Size Greatest dimension: 6.0 cm . Macroscopic tumor perforation: __ Not identified . Histologic Type: __ Undifferentiated carcinoma . Histologic Grade: __ G4: Undifferentiated . Tumor Extension: __ Tumor invades through the muscularis propria into pericolorectal tissue . Margins: __ All margins are uninvolved by invasive carcinoma, high-grade dysplasia, intramucosal adenocarcinoma and adenoma. Margins examined: Proximal, distal, and circumferential radial mesocolic margins. Distance of tumor from closest margin: 0.7 cm Specify closest margin: Circumferential radial mesocolic margin. . Proximal Margin: __ Uninvolved by invasive carcinoma . Distal Margin: __ Uninvolved by invasive carcinoma . Treatment Effect: __ No known presurgical therapy . Lymphovascular Invasion: __ Not identified . Perineural Invasion: __ Not identified . Type of polyp in which invasive carcinoma arose: __ None identified . Tumor Deposits: __ Not identified . Regional Lymph Nodes: . Number of Lymph Nodes Involved: 3 . Number of Lymph Nodes Examined: 26 . Pathologic Stage Classification (pTNM, AJCC 8th Edition) . Primary Tumor (pT)# __ pT3: Tumor invades through the muscularis propria into pericolorectal tissues. . Regional Lymph Nodes (pN) __ pN1b: 2 or 3 regional lymph nodes are positive . Additional Pathologic Findings: __ None identified . . (JPM:tom; 07/21/2018) LBQ/07/22/2018 . 02 Electronically signed: . Jon Patel MD, Pathologist NPI- [id number] . 01 Gross description: . A. The specimen is received fresh for intraoperative consultation and is designated "right colon". The specimen consists of a right hemicolectomy and includes a segment of distal ileum, cecum and ascending colon with attached mesocolon. The segment is stapled closed at both ends. The distal ileum measures 9.0 cm in length. The cecum and ascending colon measure 17.5 cm in length. The attached mesocolon ranges from 3.0 to 3.5 cm in depth. The serosal surface is pinkish-hammer. Attached to the base of the cecum is an appendix measuring 6.0 cm in length. The distal portion of the appendix is thin and atrophic in appearance. There are focal serosal adhesions in the cecal region. There is focal puckering and friend-brown roughening and adhesions of the serosal surface of the proximal ascending colon. There is also focal puckering and induration of the adjacent mesocolon. This corresponds to a palpable mass within the colon. There is focal tattooing of the serosal surface distal to the mass. The specimen is opened along the anti-mesocolon. The ileal mucosa is pale yellowish-brown and slightly erythematous and shows small nodules of lymphoid tissue. The ileocecal valve is yellow and fatty in appearance Arising approximately 7.5 cm from the distal margin of resection,there is a circumferential, pinkish-hammer to pinkish-brown centrally ulcerated and yellow-green necrotic tumor mass having raised rolled borders. The tumor mass measures approximately 6.0 cm in length. The tumor grossly appears to invade through the muscular wall into the subserosa and mesocolic soft tissues. The remainder of the cecal and colonic mucosa is hammer and folded with no additional masses identified. The attached mesocolon contains a few firm lymph nodes. (JPM:[facility] 07/15/2018) . After additional fixation the serosa is inked black and the mesenteric margin blue. Further sectioning reveals the mass obliterates the muscular wall and extends into the mesocolon to a maximum depth of 1.5 cm. The mass grossly appears to abut the black inked serosa and within 0.1 cm of the nearest mesenteric margin. The mesocolon contains multiple lymph node candidates ranging from 0.3 cm to 1.5 cm with a few that are suspicious for malignancy. Top Loader sections are submitted as follows: . A1: Proximal margin A2: Distal margin A3-A4: Mass deepest invasion A5-A7: Mass to mesenteric margin A8-A9: Additional mass A10-A11: Largest lymph node candidate serially sectioned A12: One lymph node candidate, trisected A13: One lymph node candidate, trisected A14: One lymph node candidate, serially sectioned A15: Multiple intact lymph node candidates A16: 2 bisected lymph node candidates, one inked black A17: One lymph node candidate, serially sectioned A18: Two bisected lymph node candidates, one inked black A19: Two lymph nodes candidates bisected, one inked black A20: One trisected lymph node candidate and two intact candidates . After initial microscopic examination additional sales donor recruitment representative sections are submitted as follows: . A21: Appendix A22: Ileocecal valve A23: Transition mass to proximal mucosa A24: Transition mass to distal mucosa A25: Mass to black inked serosal surface (SDY; 07/17/2018) . B. The specimen is received in formalin, labeled "Viridiana Mackey, margin on duodenum" and consists of a segment of [id number] soft tissue measuring 3.0 x 0.7 x 0.3 cm which is entirely submitted in B1. (SDY; 07/16/2018) . INTRAOPERATIVE CONSULTATION WITH GROSS IMPRESSION: (Trupti Patel M.D.) . A. Distal ileum, cecum, and ascending colon with attached mesocolon, right hemicolectomy: - Large circumferential centrally ulcerated carcinoma of the proximal ascending colon - proximal, distal, and mesocolic margins grossly appear free of neoplasm. - The results are displayed to Dr. Gaitan in the operating room. . The specimen is fixed in formalin prior to additional sectioning. (JPM:pit 07/15/2018) . Intraoperative Gross Consultation performed at [facility], [address] [place] [address]. SYU/LBQ . 02 Pathologist provided ICD-10: C18.2, C77.2 . 02 CPT . 192631, 397904, [id number] Specimen Comment: A courtesy copy of this report has been sent to Specimen Comment: [phone]. Specimen Comment: Report sent to Performed at: 01 [facility] [address], [place], [place] [id number] MD Rishabh Villagran MD Phone: [phone] Performed at: 02 [facility] [address] [place], [place] [id number] MD Jon Patel MD Phone: [phone]
[2018-07-22 19:15] VITALS: BP 135/91
[2018-07-22] MEDS: ATORVASTATIN CALCIUM 20 MG TABLET PO SCH (21:00)
[2018-07-22] MEDS: FAMOTIDINE 20 MG/2 ML VIAL IVP SCH (21:10)
[2018-07-22] MEDS: MORPHINE SULFATE 2 MG/ML VIAL. IV PRN (21:12)
[2018-07-22] MEDS: PHENOL ORAL SPRAY 177ML BOTTLE. PO PRN (21:19)
[2018-07-22 23:12] VITALS: BP 131/81
[2018-07-23] MEDS: ALBUTEROL SULFATE 2.5 MG/3 ML NEBU. NEB PRN (02:24)
[2018-07-23 03:32] VITALS: BP 121/70
[2018-07-23 07:00] VITALS: BP 176/97
[2018-07-23] MEDS: PANTOPRAZOLE 40 MG TABLET.DR. PO SCH ×2 (07:15→16:30)
[2018-07-23] MEDS: IV NORMAL SALINE 1000ML BAG 1,000 ML IV SCH ×4 (07:15→23:00)
--- NOTE | 2018-07-23 07:52 | PDOC ---
PROGRESS NOTES Subjective Subjective seems ok today, continues to have loose stools Objective Objective Vital Signs Date Time Temp Pulse Resp B/P (MAP) Pulse Ox O2 Delivery O2 Flow Rate FiO2 07/23/18 07:05 Room Air 07/23/18 03:32 97.5 103 18 121/70 (87) 99 97.5 07/21/18 02:14 2.0 Intake and Output 07/23/18 07:00 Intake Total 3750 ml Output Total 3901 ml Balance -151 ml Intake Oral 0 ml IV Total 1875 ml Other 1875 ml Urine/Stool Mix 1 ml Gastric Drainage Total 3900 ml # Voids 6 Physical Exam Abdomen: Soft Assessment Assessment Problems Medical Problems: (1) Abdominal pain Status: Acute (2) Bandemia Status: Acute (3) Leukocytosis Status: Acute (4) Nausea vomiting and diarrhea Status: Acute (5) UTI (urinary tract infection) Status: Acute Plan Plan of Care NG trial today Comment Review of Relevant I have reviewed the following items dawson (where applicable) has been applied. Labs Microbiology 07/20/18 Urine Culture - Final, Complete 07/20/18 Urine Culture Result 1 (SHEBA) - Final, Complete Medications Current Medications Sodium Chloride 1,000 ml @ 1,000 mls/hr 1X ONCE IV Last administered on at 09:37; Start 07/12/18 at 09:15; Stop 07/12/18 at 10:14; Status DC Ondansetron HCl (Zofran) 4 mg 1X ONCE IV Last administered on 07/12/18at 09:43 ; Start 07/12/18 at 09:15; Stop 07/12/18 at 09:16; Status DC Dicyclomine HCl (Bentyl) 20 mg 1X ONCE IM Last administered on 07/12/18at 10:44 ; Start 07/12/18 at 09:15; Stop 07/12/18 at 09:16; Status DC Iohexol (Omnipaque 300 Mg/ml) 75 ml 1X ONCE IV Last administered on 07/12/18at 10:30; Start 07/12/18 at 10:30; Stop 07/12/18 at 10:32; Status DC Info (CONTRAST GIVEN -- Rx MONITORING) 1 each PRN DAILY PRN MC SEE COMMENTS; Start 07/12/18 at 10:45; Stop 07/14/18 at 10:44; Status DC Metronidazole 100 ml @ 100 mls/hr 1X ONCE IV Last administered on 07/12/18at 13:10; Start 07/12/18 at 12:30; Stop 07/12/18 at 13:29; Status DC Ciprofloxacin/ Dextrose 200 ml @ 200 mls/hr Q12HR IV Last administered on 07/12 23:00; Start 07/12/18 at 13:30; Stop 07/13/18 at 08:57; Status DC Morphine Sulfate (Morphine Sulfate) 2 mg PRN Q2HR PRN IV SEVERE PAIN Last administered on 07/13/18at 16:10; Start 07/12/18 at 16:00; Stop 07/17/18 at 09:36 ; Status DC Atorvastatin Calcium (Lipitor) 20 mg HS PO Last administered on 07/21/18at 20:12 ; Start 07/12/18 at 21:00 Cetirizine HCl (ZyrTEC) 10 mg DAILY PO Last administered on 07/21/18 10:32; Start 07/12/18 at 16:00 Lubiprostone (Amitiza) 8 mcg BID PO Last administered on 07/13/18at 08:23; Start 07/12/18 at 21:00; Stop 07/13/18 at 08:49; Status DC Lisinopril (Prinivil) 10 mg DAILY PO Last administered on 07/21/18at 10:31; Start 07/13/18 at 09:00 Oxcarbazepine (Trileptal) 300 mg BID PO Last administered on 07/13/18 08:23; Start 07/12/18 at 21:00; Stop 07/13/18 at 11:19; Status DC Polyethylene Glycol (miraLAX PACKET) 17 gm BID PO Last administered on at 10:32; Start 07/12/18 at 21:00 Topiramate (Topamax) 100 mg BID PO Last administered on 07/21/18at 20:08; Start 07/12/18 at 21:00 Hydrochlorothiazide (Microzide) 12.5 mg DAILY PO Last administered on at 11:44; Start 07/13/18 at 09:00; Stop 07/16/18 at 11:39; Status DC Ketorolac Tromethamine (Toradol 30mg Vial) 30 mg PRN Q6HRS PRN IV MILD - MODERATE PAIN; Start 07/12/18 at 20:00; Stop 07/17/18 at 19:59; Status DC Lactobacillus Rhamnosus (Culturelle) 1 cap BID PO Last administered on at 20:12; Start 07/13/18 at 09:00; Stop 07/22/18 at 16:39; Status DC Ciprofloxacin/ Dextrose 200 ml @ 200 mls/hr Q12H IV Last administered on at 10:49; Start 07/13/18 at 11:00; Stop 07/16/18 at 11:39; Status DC Metronidazole 100 ml @ 100 mls/hr Q8HRS IV Last administered on 07/16/18at 06: 09; Start 07/13/18 at 09:00; Stop 07/16/18 at 11:39; Status DC Potassium Chloride (Klor-Con) 40 meq 1X ONCE PO Last administered on 09:26; Start 07/13/18 at 08:45; Stop 07/13/18 at 08:52; Status DC Potassium Chloride (Klor-Con) 40 meq DAILYWBKFT PO Last administered on at 10:31; Start 07/14/18 at 08:00 Loperamide HCl (Imodium) 2 mg PRN Q15MIN PRN PO DIARRHEA Last administered on at 09:40; Start 07/13/18 at 08:45 Ondansetron HCl (Zofran) 4 mg PRN Q6HRS PRN IV NAUSEA/VOMITING, 1ST CHOICE Last administered on 07/21/18 07:41; Start 07/13/18 at 08:45 Ondansetron HCl (Zofran Odt) 4 mg PRN Q6HRS PRN PO NAUSEA/VOMITING Last administered on 07/21/18 16:52; Start 07/13/18 at 08:45 Acetaminophen (Tylenol) 500 mg PRN Q6HRS PRN PO MILD PAIN / TEMP Last administered on 07/17/18at 10:09; Start 07/13/18 at 08:45 Acetaminophen/ Hydrocodone Bitart (Lortab 5/325) 1 tab PRN Q4HRS PRN PO PAIN MODERATE TO SEVERE Last administered on 9/24/18at 16:55; Start 07/13/18 at 08:45 Sodium Chloride 1,000 ml @ 100 mls/hr 1X ONCE IV Last administered on at 09:33; Start 07/13/18 at 09:00; Stop 07/13/18 at 18:59; Status DC Oxcarbazepine (Trileptal) 900 mg BID PO Last administered on 07/21/18at 20:08; Start 07/13/18 at 21:00 Bisacodyl (Dulcolax Tab) 10 mg 1X ONCE PO Last administered on 07/13/18at 17:07 ; Start 07/13/18 at 17:00; Stop 07/13/18 at 17:01; Status DC Polyethylene Glycol (miraLAX Powder BULK BOTTLE) 238 gm 1X ONCE PO Last administered on 07/13/18at 19:35; Start 07/13/18 at 19:00; Stop 07/13/18 at 19:01 ; Status DC Sodium Chloride (Normal Saline Flush) 3 ml QSHIFT PRN IV AFTER MEDS AND BLOOD DRAWS; Start 07/13/18 at 16:45 Sodium Chloride (Normal Saline Flush) 3 ml QSHIFT PRN IV AFTER MEDS AND BLOOD DRAWS; Start 07/13/18 at 16:45; Status UNV Benzocaine (Hurricaine One) 1 spray STK-MED ONCE .ROUTE ; Start 07/14/18 at 07: 58; Stop 07/14/18 at 07:59; Status DC Midazolam HCl (Versed) 5 mg STK-MED ONCE .ROUTE ; Start 07/14/18 at 07:59; Stop 07/14/18 at 08:00; Status DC Fentanyl Citrate (Fentanyl 2ml Vial) 100 mcg STK-MED ONCE .ROUTE ; Start at 07:59; Stop 07/14/18 at 08:00; Status DC Propofol 40 ml @ As Directed STK-MED ONCE IV ; Start 07/14/18 at 08:34; Stop at 08:35; Status DC Lidocaine HCl (Lidocaine Pf 2% Vial) 5 ml STK-MED ONCE .ROUTE ; Start 07/14/18 at 08:34; Stop 07/14/18 at 08:35; Status DC Cefazolin Sodium/ Dextrose 50 ml @ 100 mls/hr 1X PREOP PRN IV hotel or motel receptionist to OR Last administered on 07/15/18at 09:40; Start 07/15/18 at 06:00; Stop 07/15/18 at 18:00; Status DC Metronidazole 100 ml @ 100 mls/hr 1X PREOP PRN IV hotel or motel receptionist to OR; Start at 06:00; Stop 07/15/18 at 18:00; Status DC Fentanyl Citrate (Fentanyl 2ml Vial) 25 mcg PRN Q5MIN PRN IV MILD PAIN; Start 07/15/18 at 07:00; Stop 07/15/18 at 21:00; Status DC Fentanyl Citrate (Fentanyl 2ml Vial) 50 mcg PRN Q5MIN PRN IV MODERATE TO SEVERE PAIN Last administered on 07/15/18at 13:55; Start 07/15/18 at 07:00; Stop 07/15/18 at 21:00; Status DC Morphine Sulfate (Morphine Sulfate) 1 mg PRN Q10MIN PRN IV SEVERE PAIN; Start 07/15/18 at 07:00; Stop 07/15/18 at 21:00; Status DC Ringer's Solution 1,000 ml @ 30 mls/hr Q24H IV ; Start 07/15/18 at 07:00; Stop 07/15/18 at 18:59; Status DC Lidocaine HCl (Xylocaine-Mpf 1% 2ml Vial) 2 ml PRN 1X PRN ID IV START; Start at 07:00; Stop 07/15/18 at 21:00; Status DC Hydromorphone HCl (Dilaudid) 0.5 mg PRN Q10MIN PRN IV SEV PAIN, Second choice; Start 07/15/18 at 07:00; Stop 07/15/18 at 21:00; Status DC Prochlorperazine Edisylate (Compazine) 5 mg PACU PRN PRN IV NAUSEA, MRX1; Start 07/15/18 at 07:00; Stop 07/15/18 at 21:00; Status DC Epinephrine HCl (Adrenalin) 30 mg STK-MED ONCE .ROUTE ; Start 07/15/18 at 08:02 ; Stop 07/15/18 at 09:03; Status DC Bupivacaine HCl (Sensorcaine Mpf 0.25%) 30 ml STK-MED ONCE .ROUTE ; Start at 08:02; Stop 07/15/18 at 09:03; Status DC Sevoflurane (Ultane) 90 ml STK-MED ONCE IH ; Start 07/15/18 at 09:12; Stop 07/15 at 09:13; Status DC Midazolam HCl (Versed) 2 mg STK-MED ONCE .ROUTE ; Start 07/15/18 at 09:12; Stop 07/15/18 at 09:13; Status DC Fentanyl Citrate (Fentanyl 2ml Vial) 100 mcg STK-MED ONCE .ROUTE ; Start at 09:12; Stop 07/15/18 at 09:13; Status DC Glycopyrrolate (Robinul) 1 mg STK-MED ONCE .ROUTE ; Start 07/15/18 at 09:13; Stop 07/15/18 at 09:14; Status DC Neostigmine Methylsulfate (Neostigmine Methylsulfate) 5 mg STK-MED ONCE .ROUTE ; Start 07/15/18 at 09:13; Stop 07/15/18 at 09:14; Status DC Rocuronium [place] (Zemuron) 50 mg STK-MED ONCE .ROUTE ; Start 07/15/18 at 09:13 ; Stop 07/15/18 at 09:14; Status DC Dexamethasone Sodium Phosphate (Decadron) 20 mg STK-MED ONCE .ROUTE ; Start at 09:13; Stop 07/15/18 at 09:14; Status DC Ketorolac Tromethamine (Toradol For Or Only) 30 mg STK-MED ONCE INJ ; Start at 09:13; Stop 07/15/18 at 09:14; Status DC Propofol 20 ml @ As Directed STK-MED ONCE IV ; Start 07/15/18 at 09:13; Stop at 09:14; Status DC Ondansetron HCl (Zofran) 4 mg STK-MED ONCE .ROUTE ; Start 07/15/18 at 09:13; Stop 07/15/18 at 09:14; Status DC Phenylephrine HCl (PHENYLEPHRINE in 0.9% NACL PF) 1 mg STK-MED ONCE IV ; Start 07/15/18 at 09:53; Stop 07/15/18 at 09:54; Status DC Fentanyl Citrate (Fentanyl 2ml Vial) 100 mcg STK-MED ONCE .ROUTE ; Start at 10:05; Stop 07/15/18 at 10:06; Status DC Esmolol HCl (Brevibloc) 100 mg STK-MED ONCE IV ; Start 07/15/18 at 10:09; Stop 07/15/18 at 10:10; Status DC Rocuronium [place] (Zemuron) 50 mg STK-MED ONCE .ROUTE ; Start 07/15/18 at 10:10 ; Stop 07/15/18 at 10:11; Status DC Ephedrine Sulfate (ePHEDrine PF IN SALINE SYRINGE) 50 mg STK-MED ONCE IV ; Start 07/15/18 at 11:02; Stop 07/15/18 at 11:03; Status DC Fentanyl Citrate (Fentanyl 2ml Vial) 100 mcg STK-MED ONCE .ROUTE ; Start at 11:09; Stop 07/15/18 at 11:10; Status DC Fentanyl Citrate (Fentanyl 2ml Vial) 100 mcg STK-MED ONCE .ROUTE ; Start at 12:51; Stop 07/15/18 at 12:52; Status DC Morphine Sulfate 30 ml @ 0 mls/hr CONT PRN PRN IV PER PROTOCOL Last administered on 07/16/18at 19:50; Start 07/15/18 at 13:30; Stop 07/17/18 at 09:43 ; Status DC Fentanyl Citrate (Fentanyl 2ml Vial) 100 mcg STK-MED ONCE .ROUTE ; Start at 13:34; Stop 07/15/18 at 13:35; Status DC Throat Lozenges (Chloraseptic) 1 spray PRN Q3HRS PRN PO SORE THROAT Last administered on 07/22/18at 21:19; Start 07/15/18 at 21:45 Sodium Chloride 1,000 ml @ 1,000 mls/hr 1X ONCE IV Last administered on at 03:45; Start 07/16/18 at 03:45; Stop 07/16/18 at 04:44; Status DC Sodium Chloride 1,000 ml @ 125 mls/hr 1X ONCE IV ; Start 07/16/18 at 04:45; Stop 07/16/18 at 12:44; Status Cancel Sodium Chloride 1,000 ml @ 125 mls/hr Q8H IV Last administered on 07/20/18at 10 :04; Start 07/16/18 at 05:00; Stop 07/20/18 at 14:15; Status DC Enoxaparin Sodium (Lovenox 40mg Syringe) 40 mg Q24H SQ Last administered on at 13:42; Start 07/16/18 at 10:00; Stop 07/19/18 at 14:34; Status DC Albuterol/ Ipratropium (Duoneb) 3 ml RTQID NEB Last administered on 07/22/18at 20:27; Start 07/16/18 at 12:00 Albuterol Sulfate (Ventolin Neb Soln) 2.5 mg PRN Q4HRS PRN NEB SHORTNESS OF BREATH Last administered on 07/23/18at 02:24; Start 07/16/18 at 11:45 Al Hydroxide/Mg Hydroxide (Mylanta Plus Xs) 30 ml PRN Q2HR PRN PO HEARTBURN / GAS; Start 07/16/18 at 22:00; Stop 07/16/18 at 22:00; Status DC Famotidine (Pepcid) 20 mg QHS PO ; Start 07/17/18 at 21:00; Stop 07/17/18 at 21: 00; Status DC Famotidine (Pepcid) 20 mg 1X ONCE PO ; Start 07/16/18 at 22:00; Stop 07/16/18 at 22:00; Status DC Famotidine (Pepcid Vial) 20 mg QHS IVP Last administered on 07/17/18at 21:16; Start 07/17/18 at 21:00; Stop 07/18/18 at 08:21; Status DC Famotidine (Pepcid Vial) 20 mg 1X ONCE IVP Last administered on 07/16/18at 22: 38; Start 07/16/18 at 22:30; Stop 07/16/18 at 22:31; Status DC Iron Sucrose 200 mg/Sodium Chloride 110 ml @ 55 mls/hr DAILY IV Last administered on 07/21/18at 10:27; Start 07/17/18 at 12:30; Stop 07/21/18 at 12:29 ; Status DC Calcium Carbonate/ Glycine (Tums) 500 mg PRN AFTMEALHC PRN PO INDIGESTION Last administered on 07/18/18at 16:30; Start 07/17/18 at 21:15 Iohexol (Omnipaque 300 Mg/ml) 75 ml 1X ONCE IV Last administered on 07/18/18at 08:15; Start 07/18/18 at 08:15; Stop 07/18/18 at 08:16; Status DC Info (CONTRAST GIVEN -- Rx MONITORING) 1 each PRN DAILY PRN MC SEE COMMENTS; Start 07/18/18 at 08:15; Stop 07/20/18 at 08:14; Status DC Famotidine (Pepcid Vial) 20 mg BID IVP Last administered on 07/21/18at 07:41; Start 07/18/18 at 09:00; Stop 07/21/18 at 11:57; Status DC Multi-Ingredient Mouthwash/Gargle (Gi Cocktail) 20 ml PRN QID PRN PO CHEST PAIN Last administered on 07/18/18at 13:57; Start 07/18/18 at 12:00; Stop at 13:11; Status DC Enoxaparin Sodium (Lovenox 40mg Syringe) 40 mg Q12HR SQ Last administered on at 10:32; Start 07/19/18 at 21:00 Prochlorperazine Edisylate (Compazine) 10 mg PRN Q6HRS PRN IV NAUSEA/VOMITING, 2ND CHOICE Last administered on 07/21/18at 17:48; Start 07/21/18 at 10:15 Amoxicillin (Amoxil) 1,000 mg BID PO Last administered on 07/21/18at 20:08; Start 07/21/18 at 12:30 Clarithromycin (Biaxin) 500 mg BID PO Last administered on 07/21/18at 20:08; Start 07/21/18 at 12:30 Pantoprazole Sodium (Protonix) 40 mg BIDAC PO Last administered on 07/21/18at 16 :52; Start 07/21/18 at 16:30 Fentanyl Citrate (Fentanyl 2ml Vial) 50 mcg PRN Q2HR PRN IV SEVERE PAIN; Start 07/21/18 at 22:30 Morphine Sulfate (Morphine Sulfate) 2 mg PRN Q2HR PRN IV MODERATE PAIN Last administered on 07/22/18at 21:12; Start 07/21/18 at 22:30 Sodium Chloride 1,000 ml @ 100 mls/hr Q10H IV Last administered on 07/23/18at 07:15; Start 07/21/18 at 22:30 Famotidine (Pepcid Vial) 20 mg BID IVP Last administered on 07/22/18at 21:10; Start 07/22/18 at 21:00 Active Scripts Active Oxcarbazepine 300 Mg Tablet 900 Mg PO BID 30 Days Hydrocodone-Apap 5-325 (Hydrocodone Bit/Acetaminophen) 1 Each Tablet 1 Tab PO PRN Q4HRS PRN 14 Days Ondansetron Odt (Ondansetron) 4 Mg Tab.rapdis 4 Mg PO PRN Q6HRS PRN 14 Days Reported Advair 250-50 Diskus (Fluticasone/Salmeterol) 1 Each Disk.w.dev 1 Puff IH BID Proair Hfa Inhaler (Albuterol Sulfate) 8.5 Gm Hfa.aer.ad 1 Puff INH PRN Q6HRS PRN Miralax (Polyethylene Glycol 3350) 17 Gm Powd.pack 1 Packet PO BID Zyrtec (Cetirizine Hcl) 10 Mg Tablet 1 Tab PO DAILY Atorvastatin Calcium 20 Mg Tablet 20 Mg PO HS Topiramate 100 Mg Tablet 1 Tab PO BID Lisinopril-Hctz 10-12.5 Mg Tab (Lisinopril/Hydrochlorothiazide) 1 Each Tablet 1 Tab PO DAILY Vitals/I & O Vital Sign - Last 24 Hours 07/22/18 07/22/18 07/22/18 07/22/18 10:32 11:23 14:09 15:29 Temp 97.7 98.2 97.7 98.2 Pulse 94 99 Resp 20 18 B/P (MAP) 131/86 (101) 132/93 (106) Pulse Ox 94 95 96 O2 Delivery Room Air Room Air Room Air Room Air 07/22/18 07/22/18 07/22/18 07/22/18 19:15 19:30 20:28 21:12 Temp 97.9 97.9 Pulse 92 Resp 18 18 B/P (MAP) 135/91 (106) Pulse Ox 97 O2 Delivery Room Air Room Air Room Air Room Air 07/22/18 07/22/18 07/23/18 07/23/18 21:50 23:12 02:25 03:32 Temp 99.0 97.5 99.0 97.5 Pulse 96 103 Resp 18 18 18 B/P (MAP) 131/81 (98) 121/70 (87) Pulse Ox 96 97 99 O2 Delivery Room Air Room Air Room Air Room Air 07/23/18 07:05 O2 Delivery Room Air Intake and Output 07/22/18 07/22/18 07/23/18 15:00 23:00 07:00 Intake Total 0 ml 1000 ml 2750 ml Output Total 2000 ml 1901 ml Balance 0 ml -1000 ml 849 ml ROSHAN MANN MD Jul 23, 2018 07:52
[2018-07-23] MEDS: POTASSIUM CHLORIDE 20 MEQ TABLET.ER. PO SCH (08:00)
[2018-07-23] MEDS: FAMOTIDINE 20 MG/2 ML VIAL IVP SCH ×2 (08:07→21:53)
[2018-07-23] MEDS: ENOXAPARIN 40 MG/0.4 ML SYRINGE. SQ SCH ×2 (08:08→21:52)
[2018-07-23] MEDS: TOPIRAMATE 25 MG TABLET. PO SCH ×2 (08:13→21:00)
[2018-07-23] MEDS: LISINOPRIL 10 MG TABLET PO SCH (08:13)
[2018-07-23] MEDS: POLYETHYLENE GLYCOL 3350 17 GM PACKET. PO SCH ×2 (08:13→21:00)
[2018-07-23] MEDS: CLARITHROMYCIN 500 MG TABLET. PO SCH ×2 (08:13→21:00)
[2018-07-23] MEDS: OXcarbazepine 300 MG TABLET PO SCH ×2 (08:13→21:00)
[2018-07-23] MEDS: CETIRIZINE HCL 10 MG TABLET. PO SCH (08:13)
[2018-07-23] MEDS: AMOXICILLIN 250 MG CAPSULE. PO SCH ×2 (08:13→21:00)
--- NOTE | 2018-07-23 08:20 | PDOC ---
SUBJECTIVE Subjective S: CEA 4.9, still w/ NG tube O: Physical exam: Gen.: Well-nourished and well-developed, resting in bed on the phone w/ Ms Fina Psychiatric: Pleasant mood and affect Labs: Ferritin of 32, iron sat of 17, CEA 4.9 path: 6.0 cm invasive undifferentiated colorectal adenocarcinoma with invasion to the muscularis propria into the subserosa and pericolic soft tissues, 3 of 26 lymph nodes positive, no lymphovascular invasion, no perineural invasion, pT3 N1b M0, stage III Assessment and Plan: She is a 47-year-old female with colon cancer, resected, formal pathology still pending Colon cancer: CT chest showed SAMM GGO 14 mm, will f/u CT in 3 mos likely or post chemo, her CEA was 4.9 (smoker), final pathology shows node + disease, will plan for FOLFOX, needs a port, can do now or later as outpt Anemia: She had a ferritin of 14 in October 2017, with now a ferritin of 32 and iron sat of 17% though TIBC was low, s/p IV Fe beginnng 20 Sep sucrose x 800 mg , can recheck levels in a month or so... Tobacco abuse: Highly recommend smoking cessation Cervical intraepithelial neoplasia: She has gynecology follow-up pending DVT prophylaxis: w/ Lovenox Disposition: We'll follow-up as an outpatient to plan chemo after dc Thank you kindly, and please do not hesitate to call with further questions. OBJECTIVE Vital Signs Vital Signs Date Time Temp Pulse Resp B/P (MAP) Pulse Ox O2 Delivery O2 Flow Rate FiO2 07/23/18 07:05 Room Air 07/23/18 03:32 97.5 103 18 121/70 (87) 99 Room Air 97.5 07/23/18 02:25 97 Room Air 07/22/18 23:12 99.0 96 18 131/81 (98) 96 Room Air 99.0 07/22/18 21:50 18 Room Air 07/22/18 21:12 18 Room Air 07/22/18 20:28 Room Air 07/22/18 19:30 Room Air 07/22/18 19:15 97.9 92 18 135/91 (106) 97 Room Air 97.9 07/22/18 15:29 Room Air 07/22/18 14:09 98.2 99 18 132/93 (106) 96 Room Air 98.2 07/22/18 11:23 95 Room Air 07/22/18 10:32 97.7 94 20 131/86 (101) 94 Room Air 97.7 I & O Intake and Output 07/23/18 07:00 Intake Total 3750 ml Output Total 3901 ml Balance -151 ml Intake Oral 0 ml IV Total 1875 ml Other 1875 ml Urine/Stool Mix 1 ml Gastric Drainage Total 3900 ml # Voids 6 PABLO CHOI MD Jul 23, 2018 08:20
[2018-07-23] MEDS: IPRATRPIUM/ALBUTEROL 0.5/2.5MG 3 ML NEBU. NEB SCH ×4 (08:57→19:20)
--- NOTE | 2018-07-23 09:19 | PDOC ---
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 Nonobstructing left intrarenal calculi. Enlarged fibroid uterus. Probable renal cysts. asthma HTN morbid obesity h/o seizure AMS at hosp, with [employer] likely gastric bx + h pylori D/C HELD DUE TO EMESIS plan: fu wiht sx,off [employer] , NGT dc hctz, monitor bp, lisinopril for now dvt ppx add duoneb, albuterol prn cont seizure meds, neuro consulted for AMS dc abx onco consulted, garsia CT for staging, h pylori treatment defer to GI talked to pt about the path History of Present Illness History of Present Illness Out having surgery for colon mass which is a new diagnosis- dx after EGD colonoscopy this admission CAT scan: 1. Mural thickening involving the colon in the ileocecal valve region raising the possibility of colonic malignancy. An inflammatory process cannot be excluded. There is mild associated dilatation of the distal small bowel and mild mesenteric adenopathy at this level. 2. Small amount of free fluid in the pelvis. 3. Cholelithiasis. 4. Nonobstructing left intrarenal calculi. 5. Enlarged fibroid uterus. 6. Probable renal cysts. has 2 times BM 07/17 as per pt very confused 07/16 night, [employer] stopped. pain is ok pt has some dementia or cognitive impairement, no remember what i told her Vitals Vitals Vital Signs Date Time Temp Pulse Resp B/P (MAP) Pulse Ox O2 Delivery O2 Flow Rate FiO2 07/23/18 08:58 98 Room Air 07/23/18 07:00 97.2 96 16 176/97 (123) 97.2 Physical Exam General: Alert, Oriented X3, Cooperative, No acute distress, mild distress Heart: Regular rate, Normal S1, Normal S2, No murmurs Lungs: Clear Abdomen: Soft Extremities: No clubbing, No cyanosis, Normal pulses Skin: No rashes, No breakdown Labs LABS Diagnosis: A. Distal ileum, cecum, and ascending colon with attached mesocolon, right hemicolectomy: - UNDIFFERENTIATED COLORECTAL ADENOCARCINOMA, INVASIVE, FORMING A CIRCUMFERENTIAL, OBSTRUCTING, CENTRALLY ULCERATED AND NECROTIC TUMOR MASS OF THE PROXIMAL ASCDENDING COLON MEASURING UP TO 6.0 CM IN LENGTH, WITH TUMOR INVASION THROUGH THE MUSCULARIS PROPRIA INTO SUBSEROSA AND MESOCOLIC SOFT TISSUES. - METASTATIC CARCINOMA INVOLVING THREE OF TWENTY-SIX MESOCOLIC LYMPH NODES. - Closest circumferential radial mesocolic margin of resection negative for tumor. - Proximal (distal ileum) and distal (ascending colon) margins of resection negative for tumor. - Serosal adhesions of ascending colon and cecum. - Focal tattooing of colon distal to tumor. - Adiposity of ileocecal valve. - Involutional changes of appendix. . B. Fibroadipose tissue, designated "margin on duodenum": - Focal fibrosis and patchy chronic inflammation - negative for tumor. (JPM/db; 07/17/18) . . Surgical Pathology Cancer Case Summary . COLON AND RECTUM: . . Procedure __ Right hemicolectomy Assessment and Plan Assessmemt and Plan Problems Medical Problems: (1) Abdominal pain Status: Acute (2) Bandemia Status: Acute (3) Leukocytosis Status: Acute (4) Nausea vomiting and diarrhea Status: Acute (5) UTI (urinary tract infection) Status: Acute Comment Review of Relevant I have reviewed the following items dawson (where applicable) has been applied. Labs Microbiology 07/20/18 Urine Culture - Final, Complete 07/20/18 Urine Culture Result 1 (SHEBA) - Final, Complete Medications Current Medications Sodium Chloride 1,000 ml @ 1,000 mls/hr 1X ONCE IV Last administered on at 09:37; Start 07/12/18 at 09:15; Stop 07/12/18 at 10:14; Status DC Ondansetron HCl (Zofran) 4 mg 1X ONCE IV Last administered on 07/12/18at 09:43 ; Start 07/12/18 at 09:15; Stop 07/12/18 at 09:16; Status DC Dicyclomine HCl (Bentyl) 20 mg 1X ONCE IM Last administered on 07/12/18at 10:44 ; Start 07/12/18 at 09:15; Stop 07/12/18 at 09:16; Status DC Iohexol (Omnipaque 300 Mg/ml) 75 ml 1X ONCE IV Last administered on 07/12/18at 10:30; Start 07/12/18 at 10:30; Stop 07/12/18 at 10:32; Status DC Info (CONTRAST GIVEN -- Rx MONITORING) 1 each PRN DAILY PRN MC SEE COMMENTS; Start 07/12/18 at 10:45; Stop 07/14/18 at 10:44; Status DC Metronidazole 100 ml @ 100 mls/hr 1X ONCE IV Last administered on 07/12/18at 13:10; Start 07/12/18 at 12:30; Stop 07/12/18 at 13:29; Status DC Ciprofloxacin/ Dextrose 200 ml @ 200 mls/hr Q12HR IV Last administered on 07/12at 23:00; Start 07/12/18 at 13:30; Stop 07/13/18 at 08:57; Status DC Morphine Sulfate (Morphine Sulfate) 2 mg PRN Q2HR PRN IV SEVERE PAIN Last administered on 07/13/18at 16:10; Start 07/12/18 at 16:00; Stop 07/17/18 at 09:36 ; Status DC Atorvastatin Calcium (Lipitor) 20 mg HS PO Last administered on 07/21/18at 20:12 ; Start 07/12/18 at 21:00 Cetirizine HCl (ZyrTEC) 10 mg DAILY PO Last administered on 07/21/18at 10:32; Start 07/12/18 at 16:00 Lubiprostone (Amitiza) 8 mcg BID PO Last administered on 07/13/18at 08:23; Start 07/12/18 at 21:00; Stop 07/13/18 at 08:49; Status DC Lisinopril (Prinivil) 10 mg DAILY PO Last administered on 07/21/18at 10:31; Start 07/13/18 at 09:00 Oxcarbazepine (Trileptal) 300 mg BID PO Last administered on 07/13/18at 08:23; Start 07/12/18 at 21:00; Stop 07/13/18 at 11:19; Status DC Polyethylene Glycol (miraLAX PACKET) 17 gm BID PO Last administered on at 10:32; Start 07/12/18 at 21:00 Topiramate (Topamax) 100 mg BID PO Last administered on 07/21/18at 20:08; Start 07/12/18 at 21:00 Hydrochlorothiazide (Microzide) 12.5 mg DAILY PO Last administered on at 11:44; Start 07/13/18 at 09:00; Stop 07/16/18 at 11:39; Status DC Ketorolac Tromethamine (Toradol 30mg Vial) 30 mg PRN Q6HRS PRN IV MILD - MODERATE PAIN; Start 07/12/18 at 20:00; Stop 07/17/18 at 19:59; Status DC Lactobacillus Rhamnosus (Culturelle) 1 cap BID PO Last administered on at 20:12; Start 07/13/18 at 09:00; Stop 07/22/18 at 16:39; Status DC Ciprofloxacin/ Dextrose 200 ml @ 200 mls/hr Q12H IV Last administered on at 10:49; Start 07/13/18 at 11:00; Stop 07/16/18 at 11:39; Status DC Metronidazole 100 ml @ 100 mls/hr Q8HRS IV Last administered on 07/16/18at 06: 09; Start 07/13/18 at 09:00; Stop 07/16/18 at 11:39; Status DC Potassium Chloride (Klor-Con) 40 meq 1X ONCE PO Last administered on at 09:26; Start 07/13/18 at 08:45; Stop 07/13/18 at 08:52; Status DC Potassium Chloride (Klor-Con) 40 meq DAILYWBKFT PO Last administered on at 10:31; Start 07/14/18 at 08:00 Loperamide HCl (Imodium) 2 mg PRN Q15MIN PRN PO DIARRHEA Last administered on at 09:40; Start 07/13/18 at 08:45 Ondansetron HCl (Zofran) 4 mg PRN Q6HRS PRN IV NAUSEA/VOMITING, 1ST CHOICE Last administered on 07/21/18at 07:41; Start 07/13/18 at 08:45 Ondansetron HCl (Zofran Odt) 4 mg PRN Q6HRS PRN PO NAUSEA/VOMITING Last administered on 07/21/18at 16:52; Start 07/13/18 at 08:45 Acetaminophen (Tylenol) 500 mg PRN Q6HRS PRN PO MILD PAIN / TEMP Last administered on 07/17/18at 10:09; Start 07/13/18 at 08:45 Acetaminophen/ Hydrocodone Bitart (Lortab 5/325) 1 tab PRN Q4HRS PRN PO PAIN MODERATE TO SEVERE Last administered on 07/21/18at 16:55; Start 07/13/18 at 08:45 Sodium Chloride 1,000 ml @ 100 mls/hr 1X ONCE IV Last administered on at 09:33; Start 07/13/18 at 09:00; Stop 07/13/18 at 18:59; Status DC Oxcarbazepine (Trileptal) 900 mg BID PO Last administered on 07/21/18at 20:08; Start 07/13/18 at 21:00 Bisacodyl (Dulcolax Tab) 10 mg 1X ONCE PO Last administered on 07/13/18at 17:07 ; Start 07/13/18 at 17:00; Stop 07/13/18 at 17:01; Status DC Polyethylene Glycol (miraLAX Powder BULK BOTTLE) 238 gm 1X ONCE PO Last administered on 07/13/18at 19:35; Start 07/13/18 at 19:00; Stop 07/13/18 at 19:01 ; Status DC Sodium Chloride (Normal Saline Flush) 3 ml QSHIFT PRN IV AFTER MEDS AND BLOOD DRAWS; Start 07/13/18 at 16:45 Sodium Chloride (Normal Saline Flush) 3 ml QSHIFT PRN IV AFTER MEDS AND BLOOD DRAWS; Start 07/13/18 at 16:45; Status UNV Benzocaine (Hurricaine One) 1 spray STK-MED ONCE .ROUTE ; Start 07/14/18 at 07: 58; Stop 07/14/18 at 07:59; Status DC Midazolam HCl (Versed) 5 mg STK-MED ONCE .ROUTE ; Start 07/14/18 at 07:59; Stop 07/14/18 at 08:00; Status DC Fentanyl Citrate (Fentanyl 2ml Vial) 100 mcg STK-MED ONCE .ROUTE ; Start at 07:59; Stop 07/14/18 at 08:00; Status DC Propofol 40 ml @ As Directed STK-MED ONCE IV ; Start 07/14/18 at 08:34; Stop at 08:35; Status DC Lidocaine HCl (Lidocaine Pf 2% Vial) 5 ml STK-MED ONCE .ROUTE ; Start 07/14/18 at 08:34; Stop 07/14/18 at 08:35; Status DC Cefazolin Sodium/ Dextrose 50 ml @ 100 mls/hr 1X PREOP PRN IV corporate controller to OR Last administered on 07/15/18at 09:40; Start 07/15/18 at 06:00; Stop 07/15/18 at 18:00; Status DC Metronidazole 100 ml @ 100 mls/hr 1X PREOP PRN IV corporate controller to OR; Start at 06:00; Stop 07/15/18 at 18:00; Status DC Fentanyl Citrate (Fentanyl 2ml Vial) 25 mcg PRN Q5MIN PRN IV MILD PAIN; Start 07/15/18 at 07:00; Stop 07/15/18 at 21:00; Status DC Fentanyl Citrate (Fentanyl 2ml Vial) 50 mcg PRN Q5MIN PRN IV MODERATE TO SEVERE PAIN Last administered on 07/15/18at 13:55; Start 07/15/18 at 07:00; Stop 07/15/18 at 21:00; Status DC Morphine Sulfate (Morphine Sulfate) 1 mg PRN Q10MIN PRN IV SEVERE PAIN; Start 07/15/18 at 07:00; Stop 07/15/18 at 21:00; Status DC Ringer's Solution 1,000 ml @ 30 mls/hr Q24H IV ; Start 07/15/18 at 07:00; Stop 07/15/18 at 18:59; Status DC Lidocaine HCl (Xylocaine-Mpf 1% 2ml Vial) 2 ml PRN 1X PRN ID IV START; Start at 07:00; Stop 07/15/18 at 21:00; Status DC Hydromorphone HCl (Dilaudid) 0.5 mg PRN Q10MIN PRN IV SEV PAIN, Second choice; Start 07/15/18 at 07:00; Stop 07/15/18 at 21:00; Status DC Prochlorperazine Edisylate (Compazine) 5 mg PACU PRN PRN IV NAUSEA, MRX1; Start 07/15/18 at 07:00; Stop 07/15/18 at 21:00; Status DC Epinephrine HCl (Adrenalin) 30 mg STK-MED ONCE .ROUTE ; Start 07/15/18 at 08:02 ; Stop 07/15/18 at 09:03; Status DC Bupivacaine HCl (Sensorcaine Mpf 0.25%) 30 ml STK-MED ONCE .ROUTE ; Start at 08:02; Stop 07/15/18 at 09:03; Status DC Sevoflurane (Ultane) 90 ml STK-MED ONCE IH ; Start 07/15/18 at 09:12; Stop 07/15 at 09:13; Status DC Midazolam HCl (Versed) 2 mg STK-MED ONCE .ROUTE ; Start 07/15/18 at 09:12; Stop 07/15/18 at 09:13; Status DC Fentanyl Citrate (Fentanyl 2ml Vial) 100 mcg STK-MED ONCE .ROUTE ; Start at 09:12; Stop 07/15/18 at 09:13; Status DC Glycopyrrolate (Robinul) 1 mg STK-MED ONCE .ROUTE ; Start 07/15/18 at 09:13; Stop 07/15/18 at 09:14; Status DC Neostigmine Methylsulfate (Neostigmine Methylsulfate) 5 mg STK-MED ONCE .ROUTE ; Start 07/15/18 at 09:13; Stop 07/15/18 at 09:14; Status DC Rocuronium Argos (Zemuron) 50 mg STK-MED ONCE .ROUTE ; Start 07/15/18 at 09:13 ; Stop 07/15/18 at 09:14; Status DC Dexamethasone Sodium Phosphate (Decadron) 20 mg STK-MED ONCE .ROUTE ; Start at 09:13; Stop 07/15/18 at 09:14; Status DC Ketorolac Tromethamine (Toradol For Or Only) 30 mg STK-MED ONCE INJ ; Start at 09:13; Stop 07/15/18 at 09:14; Status DC Propofol 20 ml @ As Directed STK-MED ONCE IV ; Start 07/15/18 at 09:13; Stop at 09:14; Status DC Ondansetron HCl (Zofran) 4 mg STK-MED ONCE .ROUTE ; Start 07/15/18 at 09:13; Stop 07/15/18 at 09:14; Status DC Phenylephrine HCl (PHENYLEPHRINE in 0.9% NACL PF) 1 mg STK-MED ONCE IV ; Start 07/15/18 at 09:53; Stop 07/15/18 at 09:54; Status DC Fentanyl Citrate (Fentanyl 2ml Vial) 100 mcg STK-MED ONCE .ROUTE ; Start at 10:05; Stop 07/15/18 at 10:06; Status DC Esmolol HCl (Brevibloc) 100 mg STK-MED ONCE IV ; Start 07/15/18 at 10:09; Stop 07/15/18 at 10:10; Status DC Rocuronium Argos (Zemuron) 50 mg STK-MED ONCE .ROUTE ; Start 07/15/18 at 10:10 ; Stop 07/15/18 at 10:11; Status DC Ephedrine Sulfate (ePHEDrine PF IN SALINE SYRINGE) 50 mg STK-MED ONCE IV ; Start 07/15/18 at 11:02; Stop 07/15/18 at 11:03; Status DC Fentanyl Citrate (Fentanyl 2ml Vial) 100 mcg STK-MED ONCE .ROUTE ; Start at 11:09; Stop 07/15/18 at 11:10; Status DC Fentanyl Citrate (Fentanyl 2ml Vial) 100 mcg STK-MED ONCE .ROUTE ; Start at 12:51; Stop 07/15/18 at 12:52; Status DC Morphine Sulfate 30 ml @ 0 mls/hr CONT PRN PRN IV PER PROTOCOL Last administered on 07/16/18at 19:50; Start 07/15/18 at 13:30; Stop 07/17/18 at 09:43 ; Status DC Fentanyl Citrate (Fentanyl 2ml Vial) 100 mcg STK-MED ONCE .ROUTE ; Start at 13:34; Stop 07/15/18 at 13:35; Status DC Throat Lozenges (Chloraseptic) 1 spray PRN Q3HRS PRN PO SORE THROAT Last administered on 07/22/18at 21:19; Start 07/15/18 at 21:45 Sodium Chloride 1,000 ml @ 1,000 mls/hr 1X ONCE IV Last administered on at 03:45; Start 07/16/18 at 03:45; Stop 07/16/18 at 04:44; Status DC Sodium Chloride 1,000 ml @ 125 mls/hr 1X ONCE IV ; Start 07/16/18 at 04:45; Stop 07/16/18 at 12:44; Status Cancel Sodium Chloride 1,000 ml @ 125 mls/hr Q8H IV Last administered on 07/20/18at 10 :04; Start 07/16/18 at 05:00; Stop 07/20/18 at 14:15; Status DC Enoxaparin Sodium (Lovenox 40mg Syringe) 40 mg Q24H SQ Last administered on at 13:42; Start 07/16/18 at 10:00; Stop 07/19/18 at 14:34; Status DC Albuterol/ Ipratropium (Duoneb) 3 ml RTQID NEB Last administered on 07/23/18at 08:57; Start 07/16/18 at 12:00 Albuterol Sulfate (Ventolin Neb Soln) 2.5 mg PRN Q4HRS PRN NEB SHORTNESS OF BREATH Last administered on 07/23/18at 02:24; Start 07/16/18 at 11:45 Al Hydroxide/Mg Hydroxide (Mylanta Plus Xs) 30 ml PRN Q2HR PRN PO HEARTBURN / GAS; Start 07/16/18 at 22:00; Stop 07/16/18 at 22:00; Status DC Famotidine (Pepcid) 20 mg QHS PO ; Start 07/17/18 at 21:00; Stop 07/17/18 at 21: 00; Status DC Famotidine (Pepcid) 20 mg 1X ONCE PO ; Start 07/16/18 at 22:00; Stop 07/16/18 at 22:00; Status DC Famotidine (Pepcid Vial) 20 mg QHS IVP Last administered on 07/17/18at 21:16; Start 07/17/18 at 21:00; Stop 07/18/18 at 08:21; Status DC Famotidine (Pepcid Vial) 20 mg 1X ONCE IVP Last administered on 07/16/18at 22: 38; Start 07/16/18 at 22:30; Stop 07/16/18 at 22:31; Status DC Iron Sucrose 200 mg/Sodium Chloride 110 ml @ 55 mls/hr DAILY IV Last administered on 07/21/18at 10:27; Start 07/17/18 at 12:30; Stop 07/21/18 at 12:29 ; Status DC Calcium Carbonate/ Glycine (Tums) 500 mg PRN AFTMEALHC PRN PO INDIGESTION Last administered on 07/18/18at 16:30; Start 07/17/18 at 21:15 Iohexol (Omnipaque 300 Mg/ml) 75 ml 1X ONCE IV Last administered on 07/18/18at 08:15; Start 07/18/18 at 08:15; Stop 07/18/18 at 08:16; Status DC Info (CONTRAST GIVEN -- Rx MONITORING) 1 each PRN DAILY PRN MC SEE COMMENTS; Start 07/18/18 at 08:15; Stop 07/20/18 at 08:14; Status DC Famotidine (Pepcid Vial) 20 mg BID IVP Last administered on 07/21/18at 07:41; Start 07/18/18 at 09:00; Stop 07/21/18 at 11:57; Status DC Multi-Ingredient Mouthwash/Gargle (Gi Cocktail) 20 ml PRN QID PRN PO CHEST PAIN Last administered on 07/18/18at 13:57; Start 07/18/18 at 12:00; Stop at 13:11; Status DC Enoxaparin Sodium (Lovenox 40mg Syringe) 40 mg Q12HR SQ Last administered on at 08:08; Start 07/19/18 at 21:00 Prochlorperazine Edisylate (Compazine) 10 mg PRN Q6HRS PRN IV NAUSEA/VOMITING, 2ND CHOICE Last administered on 07/21/18at 17:48; Start 07/21/18 at 10:15 Amoxicillin (Amoxil) 1,000 mg BID PO Last administered on 07/21/18at 20:08; Start 07/21/18 at 12:30 Clarithromycin (Biaxin) 500 mg BID PO Last administered on 07/21/18at 20:08; Start 07/21/18 at 12:30 Pantoprazole Sodium (Protonix) 40 mg BIDAC PO Last administered on 07/21/18at 16 :52; Start 07/21/18 at 16:30 Fentanyl Citrate (Fentanyl 2ml Vial) 50 mcg PRN Q2HR PRN IV SEVERE PAIN; Start 07/21/18 at 22:30 Morphine Sulfate (Morphine Sulfate) 2 mg PRN Q2HR PRN IV MODERATE PAIN Last administered on 07/22/18at 21:12; Start 07/21/18 at 22:30 Sodium Chloride 1,000 ml @ 100 mls/hr Q10H IV Last administered on 07/23/18at 07:15; Start 07/21/18 at 22:30 Famotidine (Pepcid Vial) 20 mg BID IVP Last administered on 07/23/18at 08:07; Start 07/22/18 at 21:00 Active Scripts Active Oxcarbazepine 300 Mg Tablet 900 Mg PO BID 30 Days Hydrocodone-Apap 5-325 (Hydrocodone Bit/Acetaminophen) 1 Each Tablet 1 Tab PO PRN Q4HRS PRN 14 Days Ondansetron Odt (Ondansetron) 4 Mg Tab.rapdis 4 Mg PO PRN Q6HRS PRN 14 Days Reported Advair 250-50 Diskus (Fluticasone/Salmeterol) 1 Each Disk.w.dev 1 Puff IH BID Proair Hfa Inhaler (Albuterol Sulfate) 8.5 Gm Hfa.aer.ad 1 Puff INH PRN Q6HRS PRN Miralax (Polyethylene Glycol 3350) 17 Gm Powd.pack 1 Packet PO BID Zyrtec (Cetirizine Hcl) 10 Mg Tablet 1 Tab PO DAILY Atorvastatin Calcium 20 Mg Tablet 20 Mg PO HS Topiramate 100 Mg Tablet 1 Tab PO BID Lisinopril-Hctz 10-12.5 Mg Tab (Lisinopril/Hydrochlorothiazide) 1 Each Tablet 1 Tab PO DAILY Vitals/I & O Vital Sign - Last 24 Hours 07/22/18 07/22/18 07/22/18 07/22/18 10:32 11:23 14:09 15:29 Temp 97.7 98.2 97.7 98.2 Pulse 94 99 Resp 20 18 B/P (MAP) 131/86 (101) 132/93 (106) Pulse Ox 94 95 96 O2 Delivery Room Air Room Air Room Air Room Air 07/22/18 07/22/18 07/22/18 07/22/18 19:15 19:30 20:28 21:12 Temp 97.9 97.9 Pulse 92 Resp 18 18 B/P (MAP) 135/91 (106) Pulse Ox 97 O2 Delivery Room Air Room Air Room Air Room Air 07/22/18 07/22/18 07/23/18 9/26/18 21:50 23:12 02:25 03:32 Temp 99.0 97.5 99.0 97.5 Pulse 96 103 Resp 18 18 18 B/P (MAP) 131/81 (98) 121/70 (87) Pulse Ox 96 97 99 O2 Delivery Room Air Room Air Room Air Room Air 07/23/18 07/23/18 07/23/18 07:00 07:05 08:58 Temp 97.2 97.2 Pulse 96 Resp 16 B/P (MAP) 176/97 (123) Pulse Ox 98 98 O2 Delivery Room Air Room Air Room Air Intake and Output 07/22/18 07/22/18 07/23/18 15:00 23:00 07:00 Intake Total 0 ml 1000 ml 2750 ml Output Total 2000 ml 1901 ml Balance 0 ml -1000 ml 849 ml RAJAT OROURKE MD Jul 23, 2018 09:19
--- NOTE | 2018-07-23 10:05 | PDOC ---
Subjective: Subjective: Feeling better, asks if the NGT can come out. Objective: Vital Signs: Vital Signs Date Time Temp Pulse Resp B/P (MAP) Pulse Ox O2 Delivery O2 Flow Rate FiO2 07/23/18 08:58 98 Room Air 07/23/18 07:00 97.2 96 16 176/97 (123) 97.2 Labs: . PART A: RIGHT COLON PART B: MARGIN ON DUODENUM . 01 Clinical history: . Obstructing cecal mass . 02 Diagnosis: A. Distal ileum, cecum, and ascending colon with attached mesocolon, right hemicolectomy: - UNDIFFERENTIATED COLORECTAL ADENOCARCINOMA, INVASIVE, FORMING A CIRCUMFERENTIAL, OBSTRUCTING, CENTRALLY ULCERATED AND NECROTIC TUMOR MASS OF THE PROXIMAL ASCDENDING COLON MEASURING UP TO 6.0 CM IN LENGTH, WITH TUMOR INVASION THROUGH THE MUSCULARIS PROPRIA INTO SUBSEROSA AND MESOCOLIC SOFT TISSUES. - METASTATIC CARCINOMA INVOLVING THREE OF TWENTY-SIX MESOCOLIC LYMPH NODES. - Closest circumferential radial mesocolic margin of resection negative for tumor. - Proximal (distal ileum) and distal (ascending colon) margins of resection negative for tumor. - Serosal adhesions of ascending colon and cecum. - Focal tattooing of colon distal to tumor. - Adiposity of ileocecal valve. - Involutional changes of appendix. . B. Fibroadipose tissue, designated "margin on duodenum": - Focal fibrosis and patchy chronic inflammation - negative for tumor. Imaging: Acute Abd Series PENDING PE: GEN: NAD HEENT: NGT clamped LUNGS: clear HEART: RRR ABD: soft NEURO/PSYCH: A & O 3 A/P: Cecal adenocarcinoma s/p right colon resection - surgical path as above H. pylori gastritis -treatment held -- NG clamped, await x-ray - defer to surgery. ARVIND HUERTA Jul 23, 2018 10:05
--- NOTE | 2018-07-23 10:17 | RAD ---
Acute abdominal series to include an AP chest radiograph 07/23/2018 Clinical History: Vomiting. Bowel resection. An AP erect portable digital radiograph of the chest was obtained. Supine and erect AP digital portable radiographs of the abdomen/pelvis were obtained. Comparison study is dated 07/21/2018. The NG tube is unchanged position. The cardiac and mediastinal silhouettes are within normal limits in size and configuration. No acute pulmonary infiltrate is seen. No pleural effusion or pneumothorax is noted. Mild air distention of scattered small and large bowel loops is seen without evidence of bowel obstruction. A 4 cm partially calcified fibroid is seen within the uterus. Calcifications are seen within the pelvis consistent with phleboliths. There is no evidence of free air. No radiopaque calculus is seen. The osseous structures are grossly intact. Impression: Mild air distention of both small and large bowel loops is seen without definite evidence of bowel obstruction. Electronically signed by: Jorge Perez MD (07/23/2018 10:13 AM) [id number]
[2018-07-23 11:00] VITALS: BP 159/108
--- NOTE | 2018-07-23 12:27 | PDOC ---
PROGRESS NOTES Assessment Problems Medical Problems: (1) Abdominal pain Status: Acute (2) Bandemia Status: Acute (3) Leukocytosis Status: Acute (4) Nausea vomiting and diarrhea Status: Acute (5) UTI (urinary tract infection) Status: Acute Epilepsy, follows at , no additional seizure, has been NPO S/P resection of cecal adenocarcinoma, s/p right colectomy. Plan I ordered intravenous levetiracetam until her oral anticonvulsants can be started Resume Trileptal and Topamax, when able to Follow up with her neurologist Subjective no complaints Objective Vital Signs Date Time Temp Pulse Resp B/P (MAP) Pulse Ox O2 Delivery O2 Flow Rate FiO2 07/23/18 11:00 97.5 105 16 159/108 (125) 99 Room Air 97.5 Intake and Output 07/23/18 07:00 Intake Total 3750 ml Output Total 3901 ml Balance -151 ml Intake Oral 0 ml IV Total 1875 ml Other 1875 ml Urine/Stool Mix 1 ml Gastric Drainage Total 3900 ml # Voids 6 PHYSICAL EXAM Still has NG in, is NPO Alert. Oriented to time, place and person. PERRL. EOMI. CN: no focal findings. Muscle tone: normal. Muscle strength: 5/5 DTR: 2+ Plantar reflex: flexor Gait: normal. Sensory exam: no abnormal findings. No cerebellar signs elicited. Review of Relevant I have reviewed the following items dawson (where applicable) has been applied. Labs Microbiology 07/20/18 Urine Culture - Final, Complete 07/20/18 Urine Culture Result 1 (SHEBA) - Final, Complete Medications Current Medications Sodium Chloride 1,000 ml @ 1,000 mls/hr 1X ONCE IV Last administered on at 09:37; Start 07/12/18 at 09:15; Stop 07/12/18 at 10:14; Status DC Ondansetron HCl (Zofran) 4 mg 1X ONCE IV Last administered on 07/12/18at 09:43 ; Start 07/12/18 at 09:15; Stop 07/12/18 at 09:16; Status DC Dicyclomine HCl (Bentyl) 20 mg 1X ONCE IM Last administered on 07/12/18at 10:44 ; Start 07/12/18 at 09:15; Stop 07/12/18 at 09:16; Status DC Iohexol (Omnipaque 300 Mg/ml) 75 ml 1X ONCE IV Last administered on 07/12/18at 10:30; Start 07/12/18 at 10:30; Stop 07/12/18 at 10:32; Status DC Info (CONTRAST GIVEN -- Rx MONITORING) 1 each PRN DAILY PRN MC SEE COMMENTS; Start 07/12/18 at 10:45; Stop 07/14/18 at 10:44; Status DC Metronidazole 100 ml @ 100 mls/hr 1X ONCE IV Last administered on 07/12/18at 13:10; Start 07/12/18 at 12:30; Stop 07/12/18 at 13:29; Status DC Ciprofloxacin/ Dextrose 200 ml @ 200 mls/hr Q12HR IV Last administered on 07/12at 23:00; Start 07/12/18 at 13:30; Stop 07/13/18 at 08:57; Status DC Morphine Sulfate (Morphine Sulfate) 2 mg PRN Q2HR PRN IV SEVERE PAIN Last administered on 07/13/18at 16:10; Start 07/12/18 at 16:00; Stop 07/17/18 at 09:36 ; Status DC Atorvastatin Calcium (Lipitor) 20 mg HS PO Last administered on 07/21/18at 20:12 ; Start 07/12/18 at 21:00 Cetirizine HCl (ZyrTEC) 10 mg DAILY PO Last administered on 07/21/18at 10:32; Start 07/12/18 at 16:00 Lubiprostone (Amitiza) 8 mcg BID PO Last administered on 07/13/18at 08:23; Start 07/12/18 at 21:00; Stop 07/13/18 at 08:49; Status DC Lisinopril (Prinivil) 10 mg DAILY PO Last administered on 07/21/18at 10:31; Start 07/13/18 at 09:00 Oxcarbazepine (Trileptal) 300 mg BID PO Last administered on 07/13/18at 08:23; Start 07/12/18 at 21:00; Stop 07/13/18 at 11:19; Status DC Polyethylene Glycol (miraLAX PACKET) 17 gm BID PO Last administered on at 10:32; Start 07/12/18 at 21:00 Topiramate (Topamax) 100 mg BID PO Last administered on 07/21/18at 20:08; Start 07/12/18 at 21:00 Hydrochlorothiazide (Microzide) 12.5 mg DAILY PO Last administered on at 11:44; Start 07/13/18 at 09:00; Stop 07/16/18 at 11:39; Status DC Ketorolac Tromethamine (Toradol 30mg Vial) 30 mg PRN Q6HRS PRN IV MILD - MODERATE PAIN; Start 07/12/18 at 20:00; Stop 07/17/18 at 19:59; Status DC Lactobacillus Rhamnosus (Culturelle) 1 cap BID PO Last administered on at 20:12; Start 07/13/18 at 09:00; Stop 07/22/18 at 16:39; Status DC Ciprofloxacin/ Dextrose 200 ml @ 200 mls/hr Q12H IV Last administered on at 10:49; Start 07/13/18 at 11:00; Stop 07/16/18 at 11:39; Status DC Metronidazole 100 ml @ 100 mls/hr Q8HRS IV Last administered on 07/16/18at 06: 09; Start 07/13/18 at 09:00; Stop 07/16/18 at 11:39; Status DC Potassium Chloride (Klor-Con) 40 meq 1X ONCE PO Last administered on at 09:26; Start 07/13/18 at 08:45; Stop 07/13/18 at 08:52; Status DC Potassium Chloride (Klor-Con) 40 meq DAILYWBKFT PO Last administered on at 10:31; Start 07/14/18 at 08:00 Loperamide HCl (Imodium) 2 mg PRN Q15MIN PRN PO DIARRHEA Last administered on at 09:40; Start 07/13/18 at 08:45 Ondansetron HCl (Zofran) 4 mg PRN Q6HRS PRN IV NAUSEA/VOMITING, 1ST CHOICE Last administered on 07/21/18 07:41; Start 07/13/18 at 08:45 Ondansetron HCl (Zofran Odt) 4 mg PRN Q6HRS PRN PO NAUSEA/VOMITING Last administered on 9/24/18at 16:52; Start 07/13/18 at 08:45 Acetaminophen (Tylenol) 500 mg PRN Q6HRS PRN PO MILD PAIN / TEMP Last administered on 07/17/18at 10:09; Start 07/13/18 at 08:45 Acetaminophen/ Hydrocodone Bitart (Lortab 5/325) 1 tab PRN Q4HRS PRN PO PAIN MODERATE TO SEVERE Last administered on 07/21/18at 16:55; Start 07/13/18 at 08:45 Sodium Chloride 1,000 ml @ 100 mls/hr 1X ONCE IV Last administered on at 09:33; Start 07/13/18 at 09:00; Stop 07/13/18 at 18:59; Status DC Oxcarbazepine (Trileptal) 900 mg BID PO Last administered on 07/21/18at 20:08; Start 07/13/18 at 21:00 Bisacodyl (Dulcolax Tab) 10 mg 1X ONCE PO Last administered on 07/13/18at 17:07 ; Start 07/13/18 at 17:00; Stop 07/13/18 at 17:01; Status DC Polyethylene Glycol (miraLAX Powder BULK BOTTLE) 238 gm 1X ONCE PO Last administered on 07/13/18at 19:35; Start 07/13/18 at 19:00; Stop 07/13/18 at 19:01 ; Status DC Sodium Chloride (Normal Saline Flush) 3 ml QSHIFT PRN IV AFTER MEDS AND BLOOD DRAWS; Start 07/13/18 at 16:45 Sodium Chloride (Normal Saline Flush) 3 ml QSHIFT PRN IV AFTER MEDS AND BLOOD DRAWS; Start 07/13/18 at 16:45; Status UNV Benzocaine (Hurricaine One) 1 spray STK-MED ONCE .ROUTE ; Start 07/14/18 at 07: 58; Stop 07/14/18 at 07:59; Status DC Midazolam HCl (Versed) 5 mg STK-MED ONCE .ROUTE ; Start 07/14/18 at 07:59; Stop 07/14/18 at 08:00; Status DC Fentanyl Citrate (Fentanyl 2ml Vial) 100 mcg STK-MED ONCE .ROUTE ; Start at 07:59; Stop 07/14/18 at 08:00; Status DC Propofol 40 ml @ As Directed STK-MED ONCE IV ; Start 07/14/18 at 08:34; Stop at 08:35; Status DC Lidocaine HCl (Lidocaine Pf 2% Vial) 5 ml STK-MED ONCE .ROUTE ; Start 07/14/18 at 08:34; Stop 07/14/18 at 08:35; Status DC Cefazolin Sodium/ Dextrose 50 ml @ 100 mls/hr 1X PREOP PRN IV ground operations supervisor to OR Last administered on 07/15/18at 09:40; Start 07/15/18 at 06:00; Stop 07/15/18 at 18:00; Status DC Metronidazole 100 ml @ 100 mls/hr 1X PREOP PRN IV ground operations supervisor to OR; Start at 06:00; Stop 07/15/18 at 18:00; Status DC Fentanyl Citrate (Fentanyl 2ml Vial) 25 mcg PRN Q5MIN PRN IV MILD PAIN; Start 07/15/18 at 07:00; Stop 07/15/18 at 21:00; Status DC Fentanyl Citrate (Fentanyl 2ml Vial) 50 mcg PRN Q5MIN PRN IV MODERATE TO SEVERE PAIN Last administered on 07/15/18at 13:55; Start 07/15/18 at 07:00; Stop 07/15/18 at 21:00; Status DC Morphine Sulfate (Morphine Sulfate) 1 mg PRN Q10MIN PRN IV SEVERE PAIN; Start 07/15/18 at 07:00; Stop 07/15/18 at 21:00; Status DC Ringer's Solution 1,000 ml @ 30 mls/hr Q24H IV ; Start 07/15/18 at 07:00; Stop 07/15/18 at 18:59; Status DC Lidocaine HCl (Xylocaine-Mpf 1% 2ml Vial) 2 ml PRN 1X PRN ID IV START; Start at 07:00; Stop 07/15/18 at 21:00; Status DC Hydromorphone HCl (Dilaudid) 0.5 mg PRN Q10MIN PRN IV SEV PAIN, Second choice; Start 07/15/18 at 07:00; Stop 07/15/18 at 21:00; Status DC Prochlorperazine Edisylate (Compazine) 5 mg PACU PRN PRN IV NAUSEA, MRX1; Start 07/15/18 at 07:00; Stop 07/15/18 at 21:00; Status DC Epinephrine HCl (Adrenalin) 30 mg STK-MED ONCE .ROUTE ; Start 07/15/18 at 08:02 ; Stop 07/15/18 at 09:03; Status DC Bupivacaine HCl (Sensorcaine Mpf 0.25%) 30 ml STK-MED ONCE .ROUTE ; Start at 08:02; Stop 07/15/18 at 09:03; Status DC Sevoflurane (Ultane) 90 ml STK-MED ONCE IH ; Start 07/15/18 at 09:12; Stop 07/15 at 09:13; Status DC Midazolam HCl (Versed) 2 mg STK-MED ONCE .ROUTE ; Start 07/15/18 at 09:12; Stop 07/15/18 at 09:13; Status DC Fentanyl Citrate (Fentanyl 2ml Vial) 100 mcg STK-MED ONCE .ROUTE ; Start at 09:12; Stop 07/15/18 at 09:13; Status DC Glycopyrrolate (Robinul) 1 mg STK-MED ONCE .ROUTE ; Start 07/15/18 at 09:13; Stop 07/15/18 at 09:14; Status DC Neostigmine Methylsulfate (Neostigmine Methylsulfate) 5 mg STK-MED ONCE .ROUTE ; Start 07/15/18 at 09:13; Stop 07/15/18 at 09:14; Status DC Rocuronium [place] (Zemuron) 50 mg STK-MED ONCE .ROUTE ; Start 07/15/18 at 09:13 ; Stop 07/15/18 at 09:14; Status DC Dexamethasone Sodium Phosphate (Decadron) 20 mg STK-MED ONCE .ROUTE ; Start at 09:13; Stop 07/15/18 at 09:14; Status DC Ketorolac Tromethamine (Toradol For Or Only) 30 mg STK-MED ONCE INJ ; Start at 09:13; Stop 07/15/18 at 09:14; Status DC Propofol 20 ml @ As Directed STK-MED ONCE IV ; Start 07/15/18 at 09:13; Stop at 09:14; Status DC Ondansetron HCl (Zofran) 4 mg STK-MED ONCE .ROUTE ; Start 07/15/18 at 09:13; Stop 07/15/18 at 09:14; Status DC Phenylephrine HCl (PHENYLEPHRINE in 0.9% NACL PF) 1 mg STK-MED ONCE IV ; Start 07/15/18 at 09:53; Stop 07/15/18 at 09:54; Status DC Fentanyl Citrate (Fentanyl 2ml Vial) 100 mcg STK-MED ONCE .ROUTE ; Start at 10:05; Stop 07/15/18 at 10:06; Status DC Esmolol HCl (Brevibloc) 100 mg STK-MED ONCE IV ; Start 07/15/18 at 10:09; Stop 07/15/18 at 10:10; Status DC Rocuronium [place] (Zemuron) 50 mg STK-MED ONCE .ROUTE ; Start 07/15/18 at 10:10 ; Stop 07/15/18 at 10:11; Status DC Ephedrine Sulfate (ePHEDrine PF IN SALINE SYRINGE) 50 mg STK-MED ONCE IV ; Start 07/15/18 at 11:02; Stop 07/15/18 at 11:03; Status DC Fentanyl Citrate (Fentanyl 2ml Vial) 100 mcg STK-MED ONCE .ROUTE ; Start at 11:09; Stop 07/15/18 at 11:10; Status DC Fentanyl Citrate (Fentanyl 2ml Vial) 100 mcg STK-MED ONCE .ROUTE ; Start at 12:51; Stop 07/15/18 at 12:52; Status DC Morphine Sulfate 30 ml @ 0 mls/hr CONT PRN PRN IV PER PROTOCOL Last administered on 07/16/18at 19:50; Start 07/15/18 at 13:30; Stop 07/17/18 at 09:43 ; Status DC Fentanyl Citrate (Fentanyl 2ml Vial) 100 mcg STK-MED ONCE .ROUTE ; Start at 13:34; Stop 07/15/18 at 13:35; Status DC Throat Lozenges (Chloraseptic) 1 spray PRN Q3HRS PRN PO SORE THROAT Last administered on 07/22/18at 21:19; Start 07/15/18 at 21:45 Sodium Chloride 1,000 ml @ 1,000 mls/hr 1X ONCE IV Last administered on at 03:45; Start 07/16/18 at 03:45; Stop 07/16/18 at 04:44; Status DC Sodium Chloride 1,000 ml @ 125 mls/hr 1X ONCE IV ; Start 07/16/18 at 04:45; Stop 07/16/18 at 12:44; Status Cancel Sodium Chloride 1,000 ml @ 125 mls/hr Q8H IV Last administered on 07/20/18at 10 :04; Start 07/16/18 at 05:00; Stop 07/20/18 at 14:15; Status DC Enoxaparin Sodium (Lovenox 40mg Syringe) 40 mg Q24H SQ Last administered on at 13:42; Start 07/16/18 at 10:00; Stop 07/19/18 at 14:34; Status DC Albuterol/ Ipratropium (Duoneb) 3 ml RTQID NEB Last administered on 07/23/18at 08:57; Start 07/16/18 at 12:00 Albuterol Sulfate (Ventolin Neb Soln) 2.5 mg PRN Q4HRS PRN NEB SHORTNESS OF BREATH Last administered on 07/23/18at 02:24; Start 07/16/18 at 11:45 Al Hydroxide/Mg Hydroxide (Mylanta Plus Xs) 30 ml PRN Q2HR PRN PO HEARTBURN / GAS; Start 07/16/18 at 22:00; Stop 07/16/18 at 22:00; Status DC Famotidine (Pepcid) 20 mg QHS PO ; Start 07/17/18 at 21:00; Stop 07/17/18 at 21: 00; Status DC Famotidine (Pepcid) 20 mg 1X ONCE PO ; Start 07/16/18 at 22:00; Stop 07/16/18 at 22:00; Status DC Famotidine (Pepcid Vial) 20 mg QHS IVP Last administered on 07/17/18at 21:16; Start 07/17/18 at 21:00; Stop 07/18/18 at 08:21; Status DC Famotidine (Pepcid Vial) 20 mg 1X ONCE IVP Last administered on 07/16/18at 22: 38; Start 07/16/18 at 22:30; Stop 07/16/18 at 22:31; Status DC Iron Sucrose 200 mg/Sodium Chloride 110 ml @ 55 mls/hr DAILY IV Last administered on 07/21/18at 10:27; Start 07/17/18 at 12:30; Stop 07/21/18 at 12:29 ; Status DC Calcium Carbonate/ Glycine (Tums) 500 mg PRN AFTMEALHC PRN PO INDIGESTION Last administered on 07/18/18at 16:30; Start 07/17/18 at 21:15 Iohexol (Omnipaque 300 Mg/ml) 75 ml 1X ONCE IV Last administered on 07/18/18at 08:15; Start 07/18/18 at 08:15; Stop 07/18/18 at 08:16; Status DC Info (CONTRAST GIVEN -- Rx MONITORING) 1 each PRN DAILY PRN MC SEE COMMENTS; Start 07/18/18 at 08:15; Stop 07/20/18 at 08:14; Status DC Famotidine (Pepcid Vial) 20 mg BID IVP Last administered on 07/21/18at 07:41; Start 07/18/18 at 09:00; Stop 07/21/18 at 11:57; Status DC Multi-Ingredient Mouthwash/Gargle (Gi Cocktail) 20 ml PRN QID PRN PO CHEST PAIN Last administered on 07/18/18at 13:57; Start 07/18/18 at 12:00; Stop at 13:11; Status DC Enoxaparin Sodium (Lovenox 40mg Syringe) 40 mg Q12HR SQ Last administered on at 08:08; Start 07/19/18 at 21:00 Prochlorperazine Edisylate (Compazine) 10 mg PRN Q6HRS PRN IV NAUSEA/VOMITING, 2ND CHOICE Last administered on 07/21/18at 17:48; Start 07/21/18 at 10:15 Amoxicillin (Amoxil) 1,000 mg BID PO Last administered on 07/21/18at 20:08; Start 07/21/18 at 12:30 Clarithromycin (Biaxin) 500 mg BID PO Last administered on 07/21/18at 20:08; Start 07/21/18 at 12:30 Pantoprazole Sodium (Protonix) 40 mg BIDAC PO Last administered on 07/21/18at 16 :52; Start 07/21/18 at 16:30 Fentanyl Citrate (Fentanyl 2ml Vial) 50 mcg PRN Q2HR PRN IV SEVERE PAIN; Start 07/21/18 at 22:30 Morphine Sulfate (Morphine Sulfate) 2 mg PRN Q2HR PRN IV MODERATE PAIN Last administered on 07/22/18at 21:12; Start 07/21/18 at 22:30 Sodium Chloride 1,000 ml @ 100 mls/hr Q10H IV Last administered on 07/23/18at 07:15; Start 07/21/18 at 22:30 Famotidine (Pepcid Vial) 20 mg BID IVP Last administered on 07/23/18at 08:07; Start 07/22/18 at 21:00 Active Scripts Active Oxcarbazepine 300 Mg Tablet 900 Mg PO BID 30 Days Hydrocodone-Apap 5-325 (Hydrocodone Bit/Acetaminophen) 1 Each Tablet 1 Tab PO PRN Q4HRS PRN 14 Days Ondansetron Odt (Ondansetron) 4 Mg Tab.rapdis 4 Mg PO PRN Q6HRS PRN 14 Days Reported Advair 250-50 Diskus (Fluticasone/Salmeterol) 1 Each Disk.w.dev 1 Puff IH BID Proair Hfa Inhaler (Albuterol Sulfate) 8.5 Gm Hfa.aer.ad 1 Puff INH PRN Q6HRS PRN Miralax (Polyethylene Glycol 3350) 17 Gm Powd.pack 1 Packet PO BID Zyrtec (Cetirizine Hcl) 10 Mg Tablet 1 Tab PO DAILY Atorvastatin Calcium 20 Mg Tablet 20 Mg PO HS Topiramate 100 Mg Tablet 1 Tab PO BID Lisinopril-Hctz 10-12.5 Mg Tab (Lisinopril/Hydrochlorothiazide) 1 Each Tablet 1 Tab PO DAILY Vitals/I & O Vital Sign - Last 24 Hours 07/22/18 07/22/18 07/22/18 07/22/18 14:09 15:29 19:15 19:30 Temp 98.2 97.9 98.2 97.9 Pulse 99 92 Resp 18 18 B/P (MAP) 132/93 (106) 135/91 (106) Pulse Ox 96 97 O2 Delivery Room Air Room Air Room Air Room Air 07/22/18 07/22/18 07/22/18 07/22/18 20:28 21:12 21:50 23:12 Temp 99.0 99.0 Pulse 96 Resp 18 18 18 B/P (MAP) 131/81 (98) Pulse Ox 96 O2 Delivery Room Air Room Air Room Air Room Air 07/23/18 07/23/18 07/23/18 07/23/18 02:25 03:32 07:00 07:05 Temp 97.5 97.2 97.5 97.2 Pulse 103 96 Resp 18 16 B/P (MAP) 121/70 (87) 176/97 (123) Pulse Ox 97 99 98 O2 Delivery Room Air Room Air Room Air Room Air 07/23/18 07/23/18 08:58 11:00 Temp 97.5 97.5 Pulse 105 Resp 16 B/P (MAP) 159/108 (125) Pulse Ox 98 99 O2 Delivery Room Air Room Air Intake and Output 07/22/18 07/22/18 07/23/18 15:00 23:00 07:00 Intake Total 0 ml 1000 ml 2750 ml Output Total 2000 ml 1901 ml Balance 0 ml -1000 ml 849 ml ANY DUENAS MD Jul 23, 2018 12:26
[2018-07-23] MEDS: levETIRAcetam 500 MG in IV DEXTROSE 5% 100ML 100 ML IV SCH ×2 (13:17→21:53)
[2018-07-23 15:00] VITALS: BP 127/89
[2018-07-23] MEDS: MORPHINE SULFATE 2 MG/ML VIAL. IV PRN ×2 (15:47→21:55)
[2018-07-23 19:00] VITALS: BP 155/98
[2018-07-23] MEDS: ATORVASTATIN CALCIUM 20 MG TABLET PO SCH (21:00)
[2018-07-23] MEDS: PHENOL ORAL SPRAY 177ML BOTTLE. PO PRN (22:04)
[2018-07-23 23:00] VITALS: BP 164/101
[2018-07-24 03:00] VITALS: BP 143/93
[2018-07-24] MEDS: ALBUTEROL SULFATE 2.5 MG/3 ML NEBU. NEB PRN (04:22)
[2018-07-24] MEDS: PANTOPRAZOLE 40 MG TABLET.DR. PO SCH ×2 (05:57→16:30)
[2018-07-24] MEDS: IV NORMAL SALINE 1000ML BAG 1,000 ML IV SCH (06:23)
[2018-07-24 07:00] VITALS: BP 144/90
[2018-07-24] MEDS: IPRATRPIUM/ALBUTEROL 0.5/2.5MG 3 ML NEBU. NEB SCH ×4 (07:29→20:13)
[2018-07-24 07:56] LABS: BASO % 0 % (0-3); EOS # 0.2 x10^3/uL (0.0-0.7); EOS % 1 % (0-3); HEMATOCRIT 28.7 % (36.0-47.0); HEMOGLOBIN 9.2 g/dL (12.0-15.5); LYMPH # 1.3 x10^3/uL (1.0-4.8); LYMPH % 10 % (24-48); MEAN CORPUSCULAR HEMOGLOBIN 26 pg (25-35); MEAN CORPUSCULAR HGB CONC 32 g/dL (31-37); MEAN CORPUSCULAR VOLUME 82 fL (79-100); MONO # 0.9 x10^3/uL (0.0-1.1); MONO % 7 % (0-9); NEUT # 10.2 x10^3uL (1.8-7.7); NEUT % 81 % (31-73); PLATELET COUNT 258 x10^3/uL (140-400); RED BLOOD COUNT 3.51 x10^6/uL (3.50-5.40); RED CELL DISTRIBUTION WIDTH 19.5 % (11.5-14.5); WHITE BLOOD COUNT 12.6 x10^3/uL (4.0-11.0)
[2018-07-24] MEDS: POTASSIUM CHLORIDE 20 MEQ TABLET.ER. PO SCH (08:00)
[2018-07-24 08:18] LABS: ALBUMIN 2.6 g/dL (3.4-5.0); ALBUMIN/GLOBULIN RATIO 0.7 (1.0-1.7); CREATININE 0.7 mg/dL (0.6-1.0); GFR 109.5; POTASSIUM 3.6 mmol/L (3.5-5.1); TOTAL BILIRUBIN 0.3 mg/dL (0.2-1.0); TOTAL PROTEIN 6.1 g/dL (6.4-8.2)
[2018-07-24] MEDS: AMOXICILLIN 250 MG CAPSULE. PO SCH ×2 (08:34→21:00)
[2018-07-24] MEDS: CLARITHROMYCIN 500 MG TABLET. PO SCH ×2 (08:34→21:00)
[2018-07-24] MEDS: POLYETHYLENE GLYCOL 3350 17 GM PACKET. PO SCH ×2 (08:34→21:00)
[2018-07-24] MEDS: TOPIRAMATE 25 MG TABLET. PO SCH ×2 (08:35→21:00)
[2018-07-24] MEDS: LISINOPRIL 10 MG TABLET PO SCH (08:35)
[2018-07-24] MEDS: OXcarbazepine 300 MG TABLET PO SCH ×2 (08:35→21:00)
[2018-07-24] MEDS: CETIRIZINE HCL 10 MG TABLET. PO SCH (08:35)
[2018-07-24] MEDS: FAMOTIDINE 20 MG/2 ML VIAL IVP SCH ×2 (08:37→21:48)
[2018-07-24] MEDS: ENOXAPARIN 40 MG/0.4 ML SYRINGE. SQ SCH ×2 (08:39→21:49)
[2018-07-24] MEDS: levETIRAcetam 500 MG in IV DEXTROSE 5% 100ML 100 ML IV SCH ×2 (08:40→21:51)
--- NOTE | 2018-07-24 10:32 | PDOC ---
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 Nonobstructing left intrarenal calculi. Enlarged fibroid uterus. Probable renal cysts. asthma HTN morbid obesity h/o seizure AMS at hosp, with YOUTUBER likely gastric bx + h pylori D/C HELD DUE TO EMESIS saturday plan: ice chips NGT out dc hctz, monitor bp, lisinopril dvt ppx add duoneb, albuterol prn cont seizure meds, neuro consulted for AMS dc abx onco consulted, garsia CT for staging, h pylori treatment defer to GI talked to pt about the path History of Present Illness History of Present Illness Out having surgery for colon mass which is a new diagnosis- dx after EGD colonoscopy this admission CAT scan: 1. Mural thickening involving the colon in the ileocecal valve region raising the possibility of colonic malignancy. An inflammatory process cannot be excluded. There is mild associated dilatation of the distal small bowel and mild mesenteric adenopathy at this level. 2. Small amount of free fluid in the pelvis. 3. Cholelithiasis. 4. Nonobstructing left intrarenal calculi. 5. Enlarged fibroid uterus. 6. Probable renal cysts. has 2 times BM 07/17 as per pt very confused 07/16 night, YOUTUBER stopped. pain is ok pt has some dementia or cognitive impairement, no remember what i told her Vitals Vitals Vital Signs Date Time Temp Pulse Resp B/P (MAP) Pulse Ox O2 Delivery O2 Flow Rate FiO2 07/24/18 07:29 100 Room Air 07/24/18 07:00 97.6 93 20 144/90 (108) 97.6 Physical Exam General: Alert, Oriented X3, Cooperative, No acute distress, mild distress Heart: Regular rate, Normal S1, Normal S2, No murmurs Lungs: Clear Abdomen: Soft, No tenderness Extremities: No clubbing, No cyanosis, Normal pulses Skin: No rashes, No breakdown Labs LABS Acute abdominal series to include an AP chest radiograph 07/23/2018 Clinical History: Vomiting. Bowel resection. An AP erect portable digital radiograph of the chest was obtained. Supine and erect AP digital portable radiographs of the abdomen/pelvis were obtained. Comparison study is dated 07/21/2018. The NG tube is unchanged position. The cardiac and mediastinal silhouettes are within normal limits in size and configuration. No acute pulmonary infiltrate is seen. No pleural effusion or pneumothorax is noted. Mild air distention of scattered small and large bowel loops is seen without evidence of bowel obstruction. A 4 cm partially calcified fibroid is seen within the uterus. Calcifications are seen within the pelvis consistent with phleboliths. There is no evidence of free air. No radiopaque calculus is seen. The osseous structures are grossly intact. Impression: Mild air distention of both small and large bowel loops is seen without definite evidence of bowel obstruction. Electronically signed by: Jorge Balderrama MD (07/23/2018 10:13 AM) [id number] DICTATED and SIGNED BY: JORGE BALDERRAMA MD Laboratory Tests Test 07/24/18 06:43 White Blood Count 12.6 x10^3/uL (4.0-11.0) Red Blood Count 3.51 x10^6/uL (3.50-5.40) Hemoglobin 9.2 g/dL (12.0-15.5) Hematocrit 28.7 % (36.0-47.0) Mean Corpuscular Volume 82 fL (79-100) Mean Corpuscular Hemoglobin 26 pg (25-35) Mean Corpuscular Hemoglobin Concent 32 g/dL (31-37) Red Cell Distribution Width 19.5 % (11.5-14.5) Platelet Count 258 x10^3/uL (140-400) Neutrophils (%) (Auto) 81 % (31-73) Lymphocytes (%) (Auto) 10 % (24-48) Monocytes (%) (Auto) 7 % (0-9) Eosinophils (%) (Auto) 1 % (0-3) Basophils (%) (Auto) 0 % (0-3) Neutrophils # (Auto) 10.2 x10^3uL (1.8-7.7) Lymphocytes # (Auto) 1.3 x10^3/uL (1.0-4.8) Monocytes # (Auto) 0.9 x10^3/uL (0.0-1.1) Eosinophils # (Auto) 0.2 x10^3/uL (0.0-0.7) Basophils # (Auto) 0.0 x10^3/uL (0.0-0.2) Sodium Level 143 mmol/L (136-145) Potassium Level 3.6 mmol/L (3.5-5.1) Chloride Level 110 mmol/L (98-107) Carbon Dioxide Level 17 mmol/L (21-32) Anion Gap 16 (6-14) Blood Urea Nitrogen 8 mg/dL (7-20) Creatinine 0.7 mg/dL (0.6-1.0) Estimated GFR (Cockcroft-Gault) 109.5 BUN/Creatinine Ratio 11 (6-20) Glucose Level 65 mg/dL (70-99) Calcium Level 9.0 mg/dL (8.5-10.1) Total Bilirubin 0.3 mg/dL (0.2-1.0) Aspartate Amino Transf (AST/SGOT) 68 U/L (15-37) Alanine Aminotransferase (ALT/SGPT) 111 U/L (14-59) Alkaline Phosphatase 91 U/L (46-116) Total Protein 6.1 g/dL (6.4-8.2) Albumin 2.6 g/dL (3.4-5.0) Albumin/Globulin Ratio 0.7 (1.0-1.7) Assessment and Plan Assessmemt and Plan Problems Medical Problems: (1) Abdominal pain Status: Acute (2) Bandemia Status: Acute (3) Leukocytosis Status: Acute (4) Nausea vomiting and diarrhea Status: Acute (5) UTI (urinary tract infection) Status: Acute Comment Review of Relevant I have reviewed the following items dawson (where applicable) has been applied. Labs Laboratory Tests Test 07/24/18 06:43 White Blood Count 12.6 x10^3/uL (4.0-11.0) Red Blood Count 3.51 x10^6/uL (3.50-5.40) Hemoglobin 9.2 g/dL (12.0-15.5) Hematocrit 28.7 % (36.0-47.0) Mean Corpuscular Volume 82 fL (79-100) Mean Corpuscular Hemoglobin 26 pg (25-35) Mean Corpuscular Hemoglobin Concent 32 g/dL (31-37) Red Cell Distribution Width 19.5 % (11.5-14.5) Platelet Count 258 x10^3/uL (140-400) Neutrophils (%) (Auto) 81 % (31-73) Lymphocytes (%) (Auto) 10 % (24-48) Monocytes (%) (Auto) 7 % (0-9) Eosinophils (%) (Auto) 1 % (0-3) Basophils (%) (Auto) 0 % (0-3) Neutrophils # (Auto) 10.2 x10^3uL (1.8-7.7) Lymphocytes # (Auto) 1.3 x10^3/uL (1.0-4.8) Monocytes # (Auto) 0.9 x10^3/uL (0.0-1.1) Eosinophils # (Auto) 0.2 x10^3/uL (0.0-0.7) Basophils # (Auto) 0.0 x10^3/uL (0.0-0.2) Sodium Level 143 mmol/L (136-145) Potassium Level 3.6 mmol/L (3.5-5.1) Chloride Level 110 mmol/L (98-107) Carbon Dioxide Level 17 mmol/L (21-32) Anion Gap 16 (6-14) Blood Urea Nitrogen 8 mg/dL (7-20) Creatinine 0.7 mg/dL (0.6-1.0) Estimated GFR (Cockcroft-Gault) 109.5 BUN/Creatinine Ratio 11 (6-20) Glucose Level 65 mg/dL (70-99) Calcium Level 9.0 mg/dL (8.5-10.1) Total Bilirubin 0.3 mg/dL (0.2-1.0) Aspartate Amino Transf (AST/SGOT) 68 U/L (15-37) Alanine Aminotransferase (ALT/SGPT) 111 U/L (14-59) Alkaline Phosphatase 91 U/L (46-116) Total Protein 6.1 g/dL (6.4-8.2) Albumin 2.6 g/dL (3.4-5.0) Albumin/Globulin Ratio 0.7 (1.0-1.7) Laboratory Tests Test 07/24/18 06:43 White Blood Count 12.6 x10^3/uL (4.0-11.0) Red Blood Count 3.51 x10^6/uL (3.50-5.40) Hemoglobin 9.2 g/dL (12.0-15.5) Hematocrit 28.7 % (36.0-47.0) Mean Corpuscular Volume 82 fL (79-100) Mean Corpuscular Hemoglobin 26 pg (25-35) Mean Corpuscular Hemoglobin Concent 32 g/dL (31-37) Red Cell Distribution Width 19.5 % (11.5-14.5) Platelet Count 258 x10^3/uL (140-400) Neutrophils (%) (Auto) 81 % (31-73) Lymphocytes (%) (Auto) 10 % (24-48) Monocytes (%) (Auto) 7 % (0-9) Eosinophils (%) (Auto) 1 % (0-3) Basophils (%) (Auto) 0 % (0-3) Neutrophils # (Auto) 10.2 x10^3uL (1.8-7.7) Lymphocytes # (Auto) 1.3 x10^3/uL (1.0-4.8) Monocytes # (Auto) 0.9 x10^3/uL (0.0-1.1) Eosinophils # (Auto) 0.2 x10^3/uL (0.0-0.7) Basophils # (Auto) 0.0 x10^3/uL (0.0-0.2) Sodium Level 143 mmol/L (136-145) Potassium Level 3.6 mmol/L (3.5-5.1) Chloride Level 110 mmol/L (98-107) Carbon Dioxide Level 17 mmol/L (21-32) Anion Gap 16 (6-14) Blood Urea Nitrogen 8 mg/dL (7-20) Creatinine 0.7 mg/dL (0.6-1.0) Estimated GFR (Cockcroft-Gault) 109.5 BUN/Creatinine Ratio 11 (6-20) Glucose Level 65 mg/dL (70-99) Calcium Level 9.0 mg/dL (8.5-10.1) Total Bilirubin 0.3 mg/dL (0.2-1.0) Aspartate Amino Transf (AST/SGOT) 68 U/L (15-37) Alanine Aminotransferase (ALT/SGPT) 111 U/L (14-59) Alkaline Phosphatase 91 U/L (46-116) Total Protein 6.1 g/dL (6.4-8.2) Albumin 2.6 g/dL (3.4-5.0) Albumin/Globulin Ratio 0.7 (1.0-1.7) Microbiology 07/20/18 Urine Culture - Final, Complete 07/20/18 Urine Culture Result 1 (SHEBA) - Final, Complete Medications Current Medications Sodium Chloride 1,000 ml @ 1,000 mls/hr 1X ONCE IV Last administered on at 09:37; Start 07/12/18 at 09:15; Stop 07/12/18 at 10:14; Status DC Ondansetron HCl (Zofran) 4 mg 1X ONCE IV Last administered on 07/12/18at 09:43 ; Start 07/12/18 at 09:15; Stop 07/12/18 at 09:16; Status DC Dicyclomine HCl (Bentyl) 20 mg 1X ONCE IM Last administered on 07/12/18at 10:44 ; Start 07/12/18 at 09:15; Stop 07/12/18 at 09:16; Status DC Iohexol (Omnipaque 300 Mg/ml) 75 ml 1X ONCE IV Last administered on 07/12/18at 10:30; Start 07/12/18 at 10:30; Stop 07/12/18 at 10:32; Status DC Info (CONTRAST GIVEN -- Rx MONITORING) 1 each PRN DAILY PRN MC SEE COMMENTS; Start 07/12/18 at 10:45; Stop 07/14/18 at 10:44; Status DC Metronidazole 100 ml @ 100 mls/hr 1X ONCE IV Last administered on 07/12/18at 13:10; Start 07/12/18 at 12:30; Stop 07/12/18 at 13:29; Status DC Ciprofloxacin/ Dextrose 200 ml @ 200 mls/hr Q12HR IV Last administered on 07/12at 23:00; Start 07/12/18 at 13:30; Stop 07/13/18 at 08:57; Status DC Morphine Sulfate (Morphine Sulfate) 2 mg PRN Q2HR PRN IV SEVERE PAIN Last administered on 07/13/18at 16:10; Start 07/12/18 at 16:00; Stop 07/17/18 at 09:36 ; Status DC Atorvastatin Calcium (Lipitor) 20 mg HS PO Last administered on 07/21/18at 20:12 ; Start 07/12/18 at 21:00 Cetirizine HCl (ZyrTEC) 10 mg DAILY PO Last administered on 07/21/18 10:32; Start 07/12/18 at 16:00 Lubiprostone (Amitiza) 8 mcg BID PO Last administered on 07/13/18at 08:23; Start 07/12/18 at 21:00; Stop 07/13/18 at 08:49; Status DC Lisinopril (Prinivil) 10 mg DAILY PO Last administered on 07/21/18at 10:31; Start 07/13/18 at 09:00 Oxcarbazepine (Trileptal) 300 mg BID PO Last administered on 07/13/18at 08:23; Start 07/12/18 at 21:00; Stop 07/13/18 at 11:19; Status DC Polyethylene Glycol (miraLAX PACKET) 17 gm BID PO Last administered on at 10:32; Start 07/12/18 at 21:00 Topiramate (Topamax) 100 mg BID PO Last administered on 07/21/18at 20:08; Start 07/12/18 at 21:00 Hydrochlorothiazide (Microzide) 12.5 mg DAILY PO Last administered on at 11:44; Start 07/13/18 at 09:00; Stop 07/16/18 at 11:39; Status DC Ketorolac Tromethamine (Toradol 30mg Vial) 30 mg PRN Q6HRS PRN IV MILD - MODERATE PAIN; Start 07/12/18 at 20:00; Stop 07/17/18 at 19:59; Status DC Lactobacillus Rhamnosus (Culturelle) 1 cap BID PO Last administered on at 20:12; Start 07/13/18 at 09:00; Stop 07/22/18 at 16:39; Status DC Ciprofloxacin/ Dextrose 200 ml @ 200 mls/hr Q12H IV Last administered on at 10:49; Start 07/13/18 at 11:00; Stop 07/16/18 at 11:39; Status DC Metronidazole 100 ml @ 100 mls/hr Q8HRS IV Last administered on 07/16/18at 06: 09; Start 07/13/18 at 09:00; Stop 07/16/18 at 11:39; Status DC Potassium Chloride (Klor-Con) 40 meq 1X ONCE PO Last administered on 09:26; Start 07/13/18 at 08:45; Stop 07/13/18 at 08:52; Status DC Potassium Chloride (Klor-Con) 40 meq DAILYWBKFT PO Last administered on 10:31; Start 07/14/18 at 08:00 Loperamide HCl (Imodium) 2 mg PRN Q15MIN PRN PO DIARRHEA Last administered on 09:40; Start 07/13/18 at 08:45 Ondansetron HCl (Zofran) 4 mg PRN Q6HRS PRN IV NAUSEA/VOMITING, 1ST CHOICE Last administered on 07/21/18 07:41; Start 07/13/18 at 08:45 Ondansetron HCl (Zofran Odt) 4 mg PRN Q6HRS PRN PO NAUSEA/VOMITING Last administered on 07/21/18 16:52; Start 07/13/18 at 08:45 Acetaminophen (Tylenol) 500 mg PRN Q6HRS PRN PO MILD PAIN / TEMP Last administered on 07/17/18 10:09; Start 07/13/18 at 08:45 Acetaminophen/ Hydrocodone Bitart (Lortab 5/325) 1 tab PRN Q4HRS PRN PO PAIN MODERATE TO SEVERE Last administered on 07/21/18 16:55; Start 07/13/18 at 08:45 Sodium Chloride 1,000 ml @ 100 mls/hr 1X ONCE IV Last administered on 09:33; Start 07/13/18 at 09:00; Stop 07/13/18 at 18:59; Status DC Oxcarbazepine (Trileptal) 900 mg BID PO Last administered on 07/21/18 20:08; Start 07/13/18 at 21:00 Bisacodyl (Dulcolax Tab) 10 mg 1X ONCE PO Last administered on 07/13/18 17:07 ; Start 07/13/18 at 17:00; Stop 07/13/18 at 17:01; Status DC Polyethylene Glycol (miraLAX Powder BULK BOTTLE) 238 gm 1X ONCE PO Last administered on 07/13/18 19:35; Start 07/13/18 at 19:00; Stop 07/13/18 at 19:01 ; Status DC Sodium Chloride (Normal Saline Flush) 3 ml QSHIFT PRN IV AFTER MEDS AND BLOOD DRAWS; Start 07/13/18 at 16:45 Sodium Chloride (Normal Saline Flush) 3 ml QSHIFT PRN IV AFTER MEDS AND BLOOD DRAWS; Start 07/13/18 at 16:45; Status UNV Benzocaine (Hurricaine One) 1 spray STK-MED ONCE .ROUTE ; Start 07/14/18 at 07: 58; Stop 07/14/18 at 07:59; Status DC Midazolam HCl (Versed) 5 mg STK-MED ONCE .ROUTE ; Start 07/14/18 at 07:59; Stop 07/14/18 at 08:00; Status DC Fentanyl Citrate (Fentanyl 2ml Vial) 100 mcg STK-MED ONCE .ROUTE ; Start at 07:59; Stop 07/14/18 at 08:00; Status DC Propofol 40 ml @ As Directed STK-MED ONCE IV ; Start 07/14/18 at 08:34; Stop at 08:35; Status DC Lidocaine HCl (Lidocaine Pf 2% Vial) 5 ml STK-MED ONCE .ROUTE ; Start 07/14/18 at 08:34; Stop 07/14/18 at 08:35; Status DC Cefazolin Sodium/ Dextrose 50 ml @ 100 mls/hr 1X PREOP PRN IV satellite communications operator to OR Last administered on 07/15/18at 09:40; Start 07/15/18 at 06:00; Stop 07/15/18 at 18:00; Status DC Metronidazole 100 ml @ 100 mls/hr 1X PREOP PRN IV satellite communications operator to OR; Start at 06:00; Stop 07/15/18 at 18:00; Status DC Fentanyl Citrate (Fentanyl 2ml Vial) 25 mcg PRN Q5MIN PRN IV MILD PAIN; Start 07/15/18 at 07:00; Stop 07/15/18 at 21:00; Status DC Fentanyl Citrate (Fentanyl 2ml Vial) 50 mcg PRN Q5MIN PRN IV MODERATE TO SEVERE PAIN Last administered on 07/15/18at 13:55; Start 07/15/18 at 07:00; Stop 07/15/18 at 21:00; Status DC Morphine Sulfate (Morphine Sulfate) 1 mg PRN Q10MIN PRN IV SEVERE PAIN; Start 07/15/18 at 07:00; Stop 07/15/18 at 21:00; Status DC Ringer's Solution 1,000 ml @ 30 mls/hr Q24H IV ; Start 07/15/18 at 07:00; Stop 07/15/18 at 18:59; Status DC Lidocaine HCl (Xylocaine-Mpf 1% 2ml Vial) 2 ml PRN 1X PRN ID IV START; Start at 07:00; Stop 07/15/18 at 21:00; Status DC Hydromorphone HCl (Dilaudid) 0.5 mg PRN Q10MIN PRN IV SEV PAIN, Second choice; Start 07/15/18 at 07:00; Stop 07/15/18 at 21:00; Status DC Prochlorperazine Edisylate (Compazine) 5 mg PACU PRN PRN IV NAUSEA, MRX1; Start 07/15/18 at 07:00; Stop 07/15/18 at 21:00; Status DC Epinephrine HCl (Adrenalin) 30 mg STK-MED ONCE .ROUTE ; Start 07/15/18 at 08:02 ; Stop 07/15/18 at 09:03; Status DC Bupivacaine HCl (Sensorcaine Mpf 0.25%) 30 ml STK-MED ONCE .ROUTE ; Start at 08:02; Stop 07/15/18 at 09:03; Status DC Sevoflurane (Ultane) 90 ml STK-MED ONCE IH ; Start 07/15/18 at 09:12; Stop 07/15 at 09:13; Status DC Midazolam HCl (Versed) 2 mg STK-MED ONCE .ROUTE ; Start 07/15/18 at 09:12; Stop 07/15/18 at 09:13; Status DC Fentanyl Citrate (Fentanyl 2ml Vial) 100 mcg STK-MED ONCE .ROUTE ; Start at 09:12; Stop 07/15/18 at 09:13; Status DC Glycopyrrolate (Robinul) 1 mg STK-MED ONCE .ROUTE ; Start 07/15/18 at 09:13; Stop 07/15/18 at 09:14; Status DC Neostigmine Methylsulfate (Neostigmine Methylsulfate) 5 mg STK-MED ONCE .ROUTE ; Start 07/15/18 at 09:13; Stop 07/15/18 at 09:14; Status DC Rocuronium [place] (Zemuron) 50 mg STK-MED ONCE .ROUTE ; Start 07/15/18 at 09:13 ; Stop 07/15/18 at 09:14; Status DC Dexamethasone Sodium Phosphate (Decadron) 20 mg STK-MED ONCE .ROUTE ; Start at 09:13; Stop 07/15/18 at 09:14; Status DC Ketorolac Tromethamine (Toradol For Or Only) 30 mg STK-MED ONCE INJ ; Start at 09:13; Stop 07/15/18 at 09:14; Status DC Propofol 20 ml @ As Directed STK-MED ONCE IV ; Start 07/15/18 at 09:13; Stop at 09:14; Status DC Ondansetron HCl (Zofran) 4 mg STK-MED ONCE .ROUTE ; Start 07/15/18 at 09:13; Stop 07/15/18 at 09:14; Status DC Phenylephrine HCl (PHENYLEPHRINE in 0.9% NACL PF) 1 mg STK-MED ONCE IV ; Start 07/15/18 at 09:53; Stop 07/15/18 at 09:54; Status DC Fentanyl Citrate (Fentanyl 2ml Vial) 100 mcg STK-MED ONCE .ROUTE ; Start at 10:05; Stop 07/15/18 at 10:06; Status DC Esmolol HCl (Brevibloc) 100 mg STK-MED ONCE IV ; Start 07/15/18 at 10:09; Stop 07/15/18 at 10:10; Status DC Rocuronium [place] (Zemuron) 50 mg STK-MED ONCE .ROUTE ; Start 07/15/18 at 10:10 ; Stop 07/15/18 at 10:11; Status DC Ephedrine Sulfate (ePHEDrine PF IN SALINE SYRINGE) 50 mg STK-MED ONCE IV ; Start 07/15/18 at 11:02; Stop 07/15/18 at 11:03; Status DC Fentanyl Citrate (Fentanyl 2ml Vial) 100 mcg STK-MED ONCE .ROUTE ; Start at 11:09; Stop 07/15/18 at 11:10; Status DC Fentanyl Citrate (Fentanyl 2ml Vial) 100 mcg STK-MED ONCE .ROUTE ; Start at 12:51; Stop 07/15/18 at 12:52; Status DC Morphine Sulfate 30 ml @ 0 mls/hr CONT PRN PRN IV PER PROTOCOL Last administered on 07/16/18at 19:50; Start 07/15/18 at 13:30; Stop 07/17/18 at 09:43 ; Status DC Fentanyl Citrate (Fentanyl 2ml Vial) 100 mcg STK-MED ONCE .ROUTE ; Start at 13:34; Stop 07/15/18 at 13:35; Status DC Throat Lozenges (Chloraseptic) 1 spray PRN Q3HRS PRN PO SORE THROAT Last administered on 07/23/18at 22:04; Start 07/15/18 at 21:45 Sodium Chloride 1,000 ml @ 1,000 mls/hr 1X ONCE IV Last administered on at 03:45; Start 07/16/18 at 03:45; Stop 07/16/18 at 04:44; Status DC Sodium Chloride 1,000 ml @ 125 mls/hr 1X ONCE IV ; Start 07/16/18 at 04:45; Stop 07/16/18 at 12:44; Status Cancel Sodium Chloride 1,000 ml @ 125 mls/hr Q8H IV Last administered on 07/20/18at 10 :04; Start 07/16/18 at 05:00; Stop 07/20/18 at 14:15; Status DC Enoxaparin Sodium (Lovenox 40mg Syringe) 40 mg Q24H SQ Last administered on at 13:42; Start 07/16/18 at 10:00; Stop 07/19/18 at 14:34; Status DC Albuterol/ Ipratropium (Duoneb) 3 ml RTQID NEB Last administered on 07/24/18at 07:29; Start 07/16/18 at 12:00 Albuterol Sulfate (Ventolin Neb Soln) 2.5 mg PRN Q4HRS PRN NEB SHORTNESS OF BREATH Last administered on 07/24/18at 04:22; Start 07/16/18 at 11:45 Al Hydroxide/Mg Hydroxide (Mylanta Plus Xs) 30 ml PRN Q2HR PRN PO HEARTBURN / GAS; Start 07/16/18 at 22:00; Stop 07/16/18 at 22:00; Status DC Famotidine (Pepcid) 20 mg QHS PO ; Start 07/17/18 at 21:00; Stop 07/17/18 at 21: 00; Status DC Famotidine (Pepcid) 20 mg 1X ONCE PO ; Start 07/16/18 at 22:00; Stop 07/16/18 at 22:00; Status DC Famotidine (Pepcid Vial) 20 mg QHS IVP Last administered on 07/17/18at 21:16; Start 07/17/18 at 21:00; Stop 07/18/18 at 08:21; Status DC Famotidine (Pepcid Vial) 20 mg 1X ONCE IVP Last administered on 07/16/18at 22: 38; Start 07/16/18 at 22:30; Stop 07/16/18 at 22:31; Status DC Iron Sucrose 200 mg/Sodium Chloride 110 ml @ 55 mls/hr DAILY IV Last administered on 07/21/18at 10:27; Start 07/17/18 at 12:30; Stop 07/21/18 at 12:29 ; Status DC Calcium Carbonate/ Glycine (Tums) 500 mg PRN AFTMEALHC PRN PO INDIGESTION Last administered on 07/18/18at 16:30; Start 07/17/18 at 21:15 Iohexol (Omnipaque 300 Mg/ml) 75 ml 1X ONCE IV Last administered on 07/18/18at 08:15; Start 07/18/18 at 08:15; Stop 07/18/18 at 08:16; Status DC Info (CONTRAST GIVEN -- Rx MONITORING) 1 each PRN DAILY PRN MC SEE COMMENTS; Start 07/18/18 at 08:15; Stop 07/20/18 at 08:14; Status DC Famotidine (Pepcid Vial) 20 mg BID IVP Last administered on 07/21/18at 07:41; Start 07/18/18 at 09:00; Stop 07/21/18 at 11:57; Status DC Multi-Ingredient Mouthwash/Gargle (Gi Cocktail) 20 ml PRN QID PRN PO CHEST PAIN Last administered on 07/18/18at 13:57; Start 07/18/18 at 12:00; Stop at 13:11; Status DC Enoxaparin Sodium (Lovenox 40mg Syringe) 40 mg Q12HR SQ Last administered on at 08:39; Start 07/19/18 at 21:00 Prochlorperazine Edisylate (Compazine) 10 mg PRN Q6HRS PRN IV NAUSEA/VOMITING, 2ND CHOICE Last administered on 07/21/18at 17:48; Start 07/21/18 at 10:15 Amoxicillin (Amoxil) 1,000 mg BID PO Last administered on 07/21/18 20:08; Start 07/21/18 at 12:30 Clarithromycin (Biaxin) 500 mg BID PO Last administered on 07/21/18 20:08; Start 07/21/18 at 12:30 Pantoprazole Sodium (Protonix) 40 mg BIDAC PO Last administered on 07/21/18at 16 :52; Start 07/21/18 at 16:30 Fentanyl Citrate (Fentanyl 2ml Vial) 50 mcg PRN Q2HR PRN IV SEVERE PAIN; Start 07/21/18 at 22:30 Morphine Sulfate (Morphine Sulfate) 2 mg PRN Q2HR PRN IV MODERATE PAIN Last administered on 07/23/18at 21:55; Start 07/21/18 at 22:30 Sodium Chloride 1,000 ml @ 100 mls/hr Q10H IV Last administered on 07/24/18at 06:23; Start 07/21/18 at 22:30 Famotidine (Pepcid Vial) 20 mg BID IVP Last administered on 07/24/18at 08:37; Start 07/22/18 at 21:00 Levetiracetam 500 mg/Dextrose 105 ml @ 420 mls/hr Q12HR IV Last administered on 07/24/18at 08:40; Start 07/23/18 at 13:00 Active Scripts Active Oxcarbazepine 300 Mg Tablet 900 Mg PO BID 30 Days Hydrocodone-Apap 5-325 (Hydrocodone Bit/Acetaminophen) 1 Each Tablet 1 Tab PO PRN Q4HRS PRN 14 Days Ondansetron Odt (Ondansetron) 4 Mg Tab.rapdis 4 Mg PO PRN Q6HRS PRN 14 Days Reported Advair 250-50 Diskus (Fluticasone/Salmeterol) 1 Each Disk.w.dev 1 Puff IH BID Proair Hfa Inhaler (Albuterol Sulfate) 8.5 Gm Hfa.aer.ad 1 Puff INH PRN Q6HRS PRN Miralax (Polyethylene Glycol 3350) 17 Gm Powd.pack 1 Packet PO BID Zyrtec (Cetirizine Hcl) 10 Mg Tablet 1 Tab PO DAILY Atorvastatin Calcium 20 Mg Tablet 20 Mg PO HS Topiramate 100 Mg Tablet 1 Tab PO BID Lisinopril-Hctz 10-12.5 Mg Tab (Lisinopril/Hydrochlorothiazide) 1 Each Tablet 1 Tab PO DAILY Vitals/I & O Vital Sign - Last 24 Hours 07/23/18 07/23/18 07/23/18 07/23/18 11:00 13:44 15:00 15:47 Temp 97.5 98.0 97.5 98.0 Pulse 105 105 Resp 16 16 B/P (MAP) 159/108 (125) 127/89 (102) Pulse Ox 99 100 98 O2 Delivery Room Air Room Air Room Air Room Air 07/23/18 07/23/18 07/23/18 07/23/18 16:02 19:00 19:20 20:05 Temp 98.4 98.4 Pulse 108 Resp 16 B/P (MAP) 155/98 (117) Pulse Ox 95 98 O2 Delivery Room Air Room Air Room Air Room Air 07/23/18 07/23/18 07/23/18 07/24/18 21:55 22:25 23:00 03:00 Temp 98.9 98.1 98.9 98.1 Pulse 108 100 Resp 16 18 16 18 B/P (MAP) 164/101 (122) 143/93 (110) Pulse Ox 91 99 O2 Delivery Room Air Room Air Room Air Room Air 07/24/18 07/24/18 07/24/18 04:21 07:00 07:29 Temp 97.6 97.6 Pulse 93 Resp 20 B/P (MAP) 144/90 (108) Pulse Ox 95 99 100 O2 Delivery Room Air Room Air Room Air Intake and Output 07/23/18 07/23/18 07/24/18 15:00 23:00 07:00 Intake Total 1105 ml 3935 ml Output Total 1 ml 1 ml Balance 1104 ml 3934 ml FULBRIGHT,RAJAT W MD Jul 24, 2018 10:32
[2018-07-24 11:00] VITALS: BP 139/80
[2018-07-24] MEDS: PHENOL ORAL SPRAY 177ML BOTTLE. PO PRN (12:09)
[2018-07-24] MEDS: MORPHINE SULFATE 2 MG/ML VIAL. IV PRN (12:13)
--- NOTE | 2018-07-24 13:13 | PDOC ---
Subjective: Subjective: Feeling much better. Liquid stools. Objective: Objective: NG out. 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 Can resume H. pylori treatment when reliably taking PO. Monitor LFTs. ARVIND HUERTA Jul 24, 2018 13:13
--- NOTE | 2018-07-24 14:30 | PDOC ---
ISAAC COLE [employer] DEVELOPER 07/24/18 1430: SURGICAL PROGRESS NOTE Subjective feels quite a bit better no n/v still having stools Vital Signs Vital Signs Date Time Temp Pulse Resp B/P (MAP) Pulse Ox O2 Delivery O2 Flow Rate FiO2 07/24/18 12:45 16 Room Air 07/24/18 11:21 95 07/24/18 11:00 97.5 94 139/80 (99) 97.5 I&O Intake and Output 07/24/18 07:00 Intake Total 5040 ml Output Total 2 ml Balance 5038 ml Intake Oral 0 ml IV Total 2130 ml Other 2910 ml Stool Total 2 ml # Voids 9 # Bowel Movements 2 General: Alert, Oriented X3, Cooperative, No acute distress Abdomen: Soft, No tenderness, Other (dressing dry) Labs Laboratory Tests Test 07/24/18 06:43 White Blood Count 12.6 x10^3/uL (4.0-11.0) Red Blood Count 3.51 x10^6/uL (3.50-5.40) Hemoglobin 9.2 g/dL (12.0-15.5) Hematocrit 28.7 % (36.0-47.0) Mean Corpuscular Volume 82 fL (79-100) Mean Corpuscular Hemoglobin 26 pg (25-35) Mean Corpuscular Hemoglobin Concent 32 g/dL (31-37) Red Cell Distribution Width 19.5 % (11.5-14.5) Platelet Count 258 x10^3/uL (140-400) Neutrophils (%) (Auto) 81 % (31-73) Lymphocytes (%) (Auto) 10 % (24-48) Monocytes (%) (Auto) 7 % (0-9) Eosinophils (%) (Auto) 1 % (0-3) Basophils (%) (Auto) 0 % (0-3) Neutrophils # (Auto) 10.2 x10^3uL (1.8-7.7) Lymphocytes # (Auto) 1.3 x10^3/uL (1.0-4.8) Monocytes # (Auto) 0.9 x10^3/uL (0.0-1.1) Eosinophils # (Auto) 0.2 x10^3/uL (0.0-0.7) Basophils # (Auto) 0.0 x10^3/uL (0.0-0.2) Sodium Level 143 mmol/L (136-145) Potassium Level 3.6 mmol/L (3.5-5.1) Chloride Level 110 mmol/L (98-107) Carbon Dioxide Level 17 mmol/L (21-32) Anion Gap 16 (6-14) Blood Urea Nitrogen 8 mg/dL (7-20) Creatinine 0.7 mg/dL (0.6-1.0) Estimated GFR (Cockcroft-Gault) 109.5 BUN/Creatinine Ratio 11 (6-20) Glucose Level 65 mg/dL (70-99) Calcium Level 9.0 mg/dL (8.5-10.1) Total Bilirubin 0.3 mg/dL (0.2-1.0) Aspartate Amino Transf (AST/SGOT) 68 U/L (15-37) Alanine Aminotransferase (ALT/SGPT) 111 U/L (14-59) Alkaline Phosphatase 91 U/L (46-116) Total Protein 6.1 g/dL (6.4-8.2) Albumin 2.6 g/dL (3.4-5.0) Albumin/Globulin Ratio 0.7 (1.0-1.7) Laboratory Tests Test 07/24/18 06:43 White Blood Count 12.6 x10^3/uL (4.0-11.0) Red Blood Count 3.51 x10^6/uL (3.50-5.40) Hemoglobin 9.2 g/dL (12.0-15.5) Hematocrit 28.7 % (36.0-47.0) Mean Corpuscular Volume 82 fL (79-100) Mean Corpuscular Hemoglobin 26 pg (25-35) Mean Corpuscular Hemoglobin Concent 32 g/dL (31-37) Red Cell Distribution Width 19.5 % (11.5-14.5) Platelet Count 258 x10^3/uL (140-400) Neutrophils (%) (Auto) 81 % (31-73) Lymphocytes (%) (Auto) 10 % (24-48) Monocytes (%) (Auto) 7 % (0-9) Eosinophils (%) (Auto) 1 % (0-3) Basophils (%) (Auto) 0 % (0-3) Neutrophils # (Auto) 10.2 x10^3uL (1.8-7.7) Lymphocytes # (Auto) 1.3 x10^3/uL (1.0-4.8) Monocytes # (Auto) 0.9 x10^3/uL (0.0-1.1) Eosinophils # (Auto) 0.2 x10^3/uL (0.0-0.7) Basophils # (Auto) 0.0 x10^3/uL (0.0-0.2) Sodium Level 143 mmol/L (136-145) Potassium Level 3.6 mmol/L (3.5-5.1) Chloride Level 110 mmol/L (98-107) Carbon Dioxide Level 17 mmol/L (21-32) Anion Gap 16 (6-14) Blood Urea Nitrogen 8 mg/dL (7-20) Creatinine 0.7 mg/dL (0.6-1.0) Estimated GFR (Cockcroft-Gault) 109.5 BUN/Creatinine Ratio 11 (6-20) Glucose Level 65 mg/dL (70-99) Calcium Level 9.0 mg/dL (8.5-10.1) Total Bilirubin 0.3 mg/dL (0.2-1.0) Aspartate Amino Transf (AST/SGOT) 68 U/L (15-37) Alanine Aminotransferase (ALT/SGPT) 111 U/L (14-59) Alkaline Phosphatase 91 U/L (46-116) Total Protein 6.1 g/dL (6.4-8.2) Albumin 2.6 g/dL (3.4-5.0) Albumin/Globulin Ratio 0.7 (1.0-1.7) Problem List Problems Medical Problems: (1) Abdominal pain Status: Acute (2) Bandemia Status: Acute (3) Leukocytosis Status: Acute (4) Nausea vomiting and diarrhea Status: Acute (5) UTI (urinary tract infection) Status: Acute Assessment/Plan NG out, slow advancement of diet--ice chips/sips today ROSHAN MANN MD 07/28/18 0733: SURGICAL PROGRESS NOTE Assessment/Plan Agree with above ISAAC [employer]LE [employer] DEVEL[employer] Jul 24, 2018 14:30 ROSHAN MANN MD Jul 28, 2018 07:33
[2018-07-24 15:00] VITALS: BP 143/89
--- NOTE | 2018-07-24 15:32 | PDOC ---
PROGRESS NOTES Assessment Problems Medical Problems: (1) Abdominal pain Status: Acute (2) Bandemia Status: Acute (3) Leukocytosis Status: Acute (4) Nausea vomiting and diarrhea Status: Acute (5) UTI (urinary tract infection) Status: Acute Epilepsy, follows at , no additional seizure, has been NPO S/P resection of cecal adenocarcinoma, s/p right colectomy. Plan Levetiracetam stopped, oral anticonvulsants have been restarted Follow up with her neurologist Will follow at intervals Plan no complaints Objective Vital Signs Date Time Temp Pulse Resp B/P (MAP) Pulse Ox O2 Delivery O2 Flow Rate FiO2 07/24/18 15:00 98.1 96 20 143/89 (107) 100 Room Air 98.1 Intake and Output 07/24/18 07:00 Intake Total 5040 ml Output Total 2 ml Balance 5038 ml Intake Oral 0 ml IV Total 2130 ml Other 2910 ml Stool Total 2 ml # Voids 9 # Bowel Movements 2 PHYSICAL EXAM Alert. Oriented to time, place and person. PERRL. EOMI. CN: no focal findings. Muscle tone: normal. Muscle strength: 5/5 DTR: 2+ Plantar reflex: flexor Gait: normal. Sensory exam: no abnormal findings. No cerebellar signs elicited. Review of Relevant I have reviewed the following items dawson (where applicable) has been applied. Labs Laboratory Tests Test 07/24/18 06:43 White Blood Count 12.6 x10^3/uL (4.0-11.0) Red Blood Count 3.51 x10^6/uL (3.50-5.40) Hemoglobin 9.2 g/dL (12.0-15.5) Hematocrit 28.7 % (36.0-47.0) Mean Corpuscular Volume 82 fL (79-100) Mean Corpuscular Hemoglobin 26 pg (25-35) Mean Corpuscular Hemoglobin Concent 32 g/dL (31-37) Red Cell Distribution Width 19.5 % (11.5-14.5) Platelet Count 258 x10^3/uL (140-400) Neutrophils (%) (Auto) 81 % (31-73) Lymphocytes (%) (Auto) 10 % (24-48) Monocytes (%) (Auto) 7 % (0-9) Eosinophils (%) (Auto) 1 % (0-3) Basophils (%) (Auto) 0 % (0-3) Neutrophils # (Auto) 10.2 x10^3uL (1.8-7.7) Lymphocytes # (Auto) 1.3 x10^3/uL (1.0-4.8) Monocytes # (Auto) 0.9 x10^3/uL (0.0-1.1) Eosinophils # (Auto) 0.2 x10^3/uL (0.0-0.7) Basophils # (Auto) 0.0 x10^3/uL (0.0-0.2) Sodium Level 143 mmol/L (136-145) Potassium Level 3.6 mmol/L (3.5-5.1) Chloride Level 110 mmol/L (98-107) Carbon Dioxide Level 17 mmol/L (21-32) Anion Gap 16 (6-14) Blood Urea Nitrogen 8 mg/dL (7-20) Creatinine 0.7 mg/dL (0.6-1.0) Estimated GFR (Cockcroft-Gault) 109.5 BUN/Creatinine Ratio 11 (6-20) Glucose Level 65 mg/dL (70-99) Calcium Level 9.0 mg/dL (8.5-10.1) Total Bilirubin 0.3 mg/dL (0.2-1.0) Aspartate Amino Transf (AST/SGOT) 68 U/L (15-37) Alanine Aminotransferase (ALT/SGPT) 111 U/L (14-59) Alkaline Phosphatase 91 U/L (46-116) Total Protein 6.1 g/dL (6.4-8.2) Albumin 2.6 g/dL (3.4-5.0) Albumin/Globulin Ratio 0.7 (1.0-1.7) Laboratory Tests Test 07/24/18 06:43 White Blood Count 12.6 x10^3/uL (4.0-11.0) Red Blood Count 3.51 x10^6/uL (3.50-5.40) Hemoglobin 9.2 g/dL (12.0-15.5) Hematocrit 28.7 % (36.0-47.0) Mean Corpuscular Volume 82 fL (79-100) Mean Corpuscular Hemoglobin 26 pg (25-35) Mean Corpuscular Hemoglobin Concent 32 g/dL (31-37) Red Cell Distribution Width 19.5 % (11.5-14.5) Platelet Count 258 x10^3/uL (140-400) Neutrophils (%) (Auto) 81 % (31-73) Lymphocytes (%) (Auto) 10 % (24-48) Monocytes (%) (Auto) 7 % (0-9) Eosinophils (%) (Auto) 1 % (0-3) Basophils (%) (Auto) 0 % (0-3) Neutrophils # (Auto) 10.2 x10^3uL (1.8-7.7) Lymphocytes # (Auto) 1.3 x10^3/uL (1.0-4.8) Monocytes # (Auto) 0.9 x10^3/uL (0.0-1.1) Eosinophils # (Auto) 0.2 x10^3/uL (0.0-0.7) Basophils # (Auto) 0.0 x10^3/uL (0.0-0.2) Sodium Level 143 mmol/L (136-145) Potassium Level 3.6 mmol/L (3.5-5.1) Chloride Level 110 mmol/L (98-107) Carbon Dioxide Level 17 mmol/L (21-32) Anion Gap 16 (6-14) Blood Urea Nitrogen 8 mg/dL (7-20) Creatinine 0.7 mg/dL (0.6-1.0) Estimated GFR (Cockcroft-Gault) 109.5 BUN/Creatinine Ratio 11 (6-20) Glucose Level 65 mg/dL (70-99) Calcium Level 9.0 mg/dL (8.5-10.1) Total Bilirubin 0.3 mg/dL (0.2-1.0) Aspartate Amino Transf (AST/SGOT) 68 U/L (15-37) Alanine Aminotransferase (ALT/SGPT) 111 U/L (14-59) Alkaline Phosphatase 91 U/L (46-116) Total Protein 6.1 g/dL (6.4-8.2) Albumin 2.6 g/dL (3.4-5.0) Albumin/Globulin Ratio 0.7 (1.0-1.7) Microbiology 07/20/18 Urine Culture - Final, Complete 07/20/18 Urine Culture Result 1 (SHEBA) - Final, Complete Medications Current Medications Sodium Chloride 1,000 ml @ 1,000 mls/hr 1X ONCE IV Last administered on at 09:37; Start 07/12/18 at 09:15; Stop 07/12/18 at 10:14; Status DC Ondansetron HCl (Zofran) 4 mg 1X ONCE IV Last administered on 07/12/18at 09:43 ; Start 07/12/18 at 09:15; Stop 07/12/18 at 09:16; Status DC Dicyclomine HCl (Bentyl) 20 mg 1X ONCE IM Last administered on 07/12/18at 10:44 ; Start 07/12/18 at 09:15; Stop 07/12/18 at 09:16; Status DC Iohexol (Omnipaque 300 Mg/ml) 75 ml 1X ONCE IV Last administered on 07/12/18at 10:30; Start 07/12/18 at 10:30; Stop 07/12/18 at 10:32; Status DC Info (CONTRAST GIVEN -- Rx MONITORING) 1 each PRN DAILY PRN MC SEE COMMENTS; Start 07/12/18 at 10:45; Stop 07/14/18 at 10:44; Status DC Metronidazole 100 ml @ 100 mls/hr 1X ONCE IV Last administered on 07/12/18at 13:10; Start 07/12/18 at 12:30; Stop 07/12/18 at 13:29; Status DC Ciprofloxacin/ Dextrose 200 ml @ 200 mls/hr Q12HR IV Last administered on 07/12at 23:00; Start 07/12/18 at 13:30; Stop 07/13/18 at 08:57; Status DC Morphine Sulfate (Morphine Sulfate) 2 mg PRN Q2HR PRN IV SEVERE PAIN Last administered on 07/13/18at 16:10; Start 07/12/18 at 16:00; Stop 07/17/18 at 09:36 ; Status DC Atorvastatin Calcium (Lipitor) 20 mg HS PO Last administered on 07/21/18at 20:12 ; Start 07/12/18 at 21:00 Cetirizine HCl (ZyrTEC) 10 mg DAILY PO Last administered on 07/21/18at 10:32; Start 07/12/18 at 16:00 Lubiprostone (Amitiza) 8 mcg BID PO Last administered on 07/13/18at 08:23; Start 07/12/18 at 21:00; Stop 07/13/18 at 08:49; Status DC Lisinopril (Prinivil) 10 mg DAILY PO Last administered on 07/21/18at 10:31; Start 07/13/18 at 09:00 Oxcarbazepine (Trileptal) 300 mg BID PO Last administered on 07/13/18at 08:23; Start 07/12/18 at 21:00; Stop 07/13/18 at 11:19; Status DC Polyethylene Glycol (miraLAX PACKET) 17 gm BID PO Last administered on at 10:32; Start 07/12/18 at 21:00 Topiramate (Topamax) 100 mg BID PO Last administered on 07/21/18at 20:08; Start 07/12/18 at 21:00 Hydrochlorothiazide (Microzide) 12.5 mg DAILY PO Last administered on at 11:44; Start 07/13/18 at 09:00; Stop 07/16/18 at 11:39; Status DC Ketorolac Tromethamine (Toradol 30mg Vial) 30 mg PRN Q6HRS PRN IV MILD - MODERATE PAIN; Start 07/12/18 at 20:00; Stop 07/17/18 at 19:59; Status DC Lactobacillus Rhamnosus (Culturelle) 1 cap BID PO Last administered on at 20:12; Start 07/13/18 at 09:00; Stop 07/22/18 at 16:39; Status DC Ciprofloxacin/ Dextrose 200 ml @ 200 mls/hr Q12H IV Last administered on at 10:49; Start 07/13/18 at 11:00; Stop 07/16/18 at 11:39; Status DC Metronidazole 100 ml @ 100 mls/hr Q8HRS IV Last administered on 07/16/18at 06: 09; Start 07/13/18 at 09:00; Stop 07/16/18 at 11:39; Status DC Potassium Chloride (Klor-Con) 40 meq 1X ONCE PO Last administered on at 09:26; Start 07/13/18 at 08:45; Stop 07/13/18 at 08:52; Status DC Potassium Chloride (Klor-Con) 40 meq DAILYWBKFT PO Last administered on 10:31; Start 07/14/18 at 08:00 Loperamide HCl (Imodium) 2 mg PRN Q15MIN PRN PO DIARRHEA Last administered on 09:40; Start 07/13/18 at 08:45 Ondansetron HCl (Zofran) 4 mg PRN Q6HRS PRN IV NAUSEA/VOMITING, 1ST CHOICE Last administered on 07/21/18 07:41; Start 07/13/18 at 08:45 Ondansetron HCl (Zofran Odt) 4 mg PRN Q6HRS PRN PO NAUSEA/VOMITING Last administered on 07/21/18 16:52; Start 07/13/18 at 08:45 Acetaminophen (Tylenol) 500 mg PRN Q6HRS PRN PO MILD PAIN / TEMP Last administered on 07/17/18 10:09; Start 07/13/18 at 08:45 Acetaminophen/ Hydrocodone Bitart (Lortab 5/325) 1 tab PRN Q4HRS PRN PO PAIN MODERATE TO SEVERE Last administered on 07/21/18 16:55; Start 07/13/18 at 08:45 Sodium Chloride 1,000 ml @ 100 mls/hr 1X ONCE IV Last administered on 09:33; Start 07/13/18 at 09:00; Stop 07/13/18 at 18:59; Status DC Oxcarbazepine (Trileptal) 900 mg BID PO Last administered on 07/21/18 20:08; Start 07/13/18 at 21:00 Bisacodyl (Dulcolax Tab) 10 mg 1X ONCE PO Last administered on 07/13/18 17:07 ; Start 07/13/18 at 17:00; Stop 07/13/18 at 17:01; Status DC Polyethylene Glycol (miraLAX Powder BULK BOTTLE) 238 gm 1X ONCE PO Last administered on 07/13/18 19:35; Start 07/13/18 at 19:00; Stop 07/13/18 at 19:01 ; Status DC Sodium Chloride (Normal Saline Flush) 3 ml QSHIFT PRN IV AFTER MEDS AND BLOOD DRAWS; Start 07/13/18 at 16:45 Sodium Chloride (Normal Saline Flush) 3 ml QSHIFT PRN IV AFTER MEDS AND BLOOD DRAWS; Start 07/13/18 at 16:45; Status UNV Benzocaine (Hurricaine One) 1 spray STK-MED ONCE .ROUTE ; Start 07/14/18 at 07: 58; Stop 07/14/18 at 07:59; Status DC Midazolam HCl (Versed) 5 mg STK-MED ONCE .ROUTE ; Start 07/14/18 at 07:59; Stop 07/14/18 at 08:00; Status DC Fentanyl Citrate (Fentanyl 2ml Vial) 100 mcg STK-MED ONCE .ROUTE ; Start at 07:59; Stop 07/14/18 at 08:00; Status DC Propofol 40 ml @ As Directed STK-MED ONCE IV ; Start 07/14/18 at 08:34; Stop at 08:35; Status DC Lidocaine HCl (Lidocaine Pf 2% Vial) 5 ml STK-MED ONCE .ROUTE ; Start 07/14/18 at 08:34; Stop 07/14/18 at 08:35; Status DC Cefazolin Sodium/ Dextrose 50 ml @ 100 mls/hr 1X PREOP PRN IV special weapons and tactics officer to OR Last administered on 07/15/18at 09:40; Start 07/15/18 at 06:00; Stop 07/15/18 at 18:00; Status DC Metronidazole 100 ml @ 100 mls/hr 1X PREOP PRN IV special weapons and tactics officer to OR; Start at 06:00; Stop 07/15/18 at 18:00; Status DC Fentanyl Citrate (Fentanyl 2ml Vial) 25 mcg PRN Q5MIN PRN IV MILD PAIN; Start 07/15/18 at 07:00; Stop 07/15/18 at 21:00; Status DC Fentanyl Citrate (Fentanyl 2ml Vial) 50 mcg PRN Q5MIN PRN IV MODERATE TO SEVERE PAIN Last administered on 07/15/18at 13:55; Start 07/15/18 at 07:00; Stop 07/15/18 at 21:00; Status DC Morphine Sulfate (Morphine Sulfate) 1 mg PRN Q10MIN PRN IV SEVERE PAIN; Start 07/15/18 at 07:00; Stop 07/15/18 at 21:00; Status DC Ringer's Solution 1,000 ml @ 30 mls/hr Q24H IV ; Start 07/15/18 at 07:00; Stop 07/15/18 at 18:59; Status DC Lidocaine HCl (Xylocaine-Mpf 1% 2ml Vial) 2 ml PRN 1X PRN ID IV START; Start at 07:00; Stop 07/15/18 at 21:00; Status DC Hydromorphone HCl (Dilaudid) 0.5 mg PRN Q10MIN PRN IV SEV PAIN, Second choice; Start 07/15/18 at 07:00; Stop 07/15/18 at 21:00; Status DC Prochlorperazine Edisylate (Compazine) 5 mg PACU PRN PRN IV NAUSEA, MRX1; Start 07/15/18 at 07:00; Stop 07/15/18 at 21:00; Status DC Epinephrine HCl (Adrenalin) 30 mg STK-MED ONCE .ROUTE ; Start 07/15/18 at 08:02 ; Stop 07/15/18 at 09:03; Status DC Bupivacaine HCl (Sensorcaine Mpf 0.25%) 30 ml STK-MED ONCE .ROUTE ; Start at 08:02; Stop 07/15/18 at 09:03; Status DC Sevoflurane (Ultane) 90 ml STK-MED ONCE IH ; Start 07/15/18 at 09:12; Stop 07/15 at 09:13; Status DC Midazolam HCl (Versed) 2 mg STK-MED ONCE .ROUTE ; Start 07/15/18 at 09:12; Stop 07/15/18 at 09:13; Status DC Fentanyl Citrate (Fentanyl 2ml Vial) 100 mcg STK-MED ONCE .ROUTE ; Start at 09:12; Stop 07/15/18 at 09:13; Status DC Glycopyrrolate (Robinul) 1 mg STK-MED ONCE .ROUTE ; Start 07/15/18 at 09:13; Stop 07/15/18 at 09:14; Status DC Neostigmine Methylsulfate (Neostigmine Methylsulfate) 5 mg STK-MED ONCE .ROUTE ; Start 07/15/18 at 09:13; Stop 07/15/18 at 09:14; Status DC Rocuronium Petros (Zemuron) 50 mg STK-MED ONCE .ROUTE ; Start 07/15/18 at 09:13 ; Stop 07/15/18 at 09:14; Status DC Dexamethasone Sodium Phosphate (Decadron) 20 mg STK-MED ONCE .ROUTE ; Start at 09:13; Stop 07/15/18 at 09:14; Status DC Ketorolac Tromethamine (Toradol For Or Only) 30 mg STK-MED ONCE INJ ; Start at 09:13; Stop 07/15/18 at 09:14; Status DC Propofol 20 ml @ As Directed STK-MED ONCE IV ; Start 07/15/18 at 09:13; Stop at 09:14; Status DC Ondansetron HCl (Zofran) 4 mg STK-MED ONCE .ROUTE ; Start 07/15/18 at 09:13; Stop 07/15/18 at 09:14; Status DC Phenylephrine HCl (PHENYLEPHRINE in 0.9% NACL PF) 1 mg STK-MED ONCE IV ; Start 07/15/18 at 09:53; Stop 07/15/18 at 09:54; Status DC Fentanyl Citrate (Fentanyl 2ml Vial) 100 mcg STK-MED ONCE .ROUTE ; Start at 10:05; Stop 07/15/18 at 10:06; Status DC Esmolol HCl (Brevibloc) 100 mg STK-MED ONCE IV ; Start 07/15/18 at 10:09; Stop 07/15/18 at 10:10; Status DC Rocuronium Petros (Zemuron) 50 mg STK-MED ONCE .ROUTE ; Start 07/15/18 at 10:10 ; Stop 07/15/18 at 10:11; Status DC Ephedrine Sulfate (ePHEDrine PF IN SALINE SYRINGE) 50 mg STK-MED ONCE IV ; Start 07/15/18 at 11:02; Stop 07/15/18 at 11:03; Status DC Fentanyl Citrate (Fentanyl 2ml Vial) 100 mcg STK-MED ONCE .ROUTE ; Start at 11:09; Stop 07/15/18 at 11:10; Status DC Fentanyl Citrate (Fentanyl 2ml Vial) 100 mcg STK-MED ONCE .ROUTE ; Start at 12:51; Stop 07/15/18 at 12:52; Status DC Morphine Sulfate 30 ml @ 0 mls/hr CONT PRN PRN IV PER PROTOCOL Last administered on 07/16/18at 19:50; Start 07/15/18 at 13:30; Stop 07/17/18 at 09:43 ; Status DC Fentanyl Citrate (Fentanyl 2ml Vial) 100 mcg STK-MED ONCE .ROUTE ; Start at 13:34; Stop 07/15/18 at 13:35; Status DC Throat Lozenges (Chloraseptic) 1 spray PRN Q3HRS PRN PO SORE THROAT Last administered on 07/24/18at 12:09; Start 07/15/18 at 21:45 Sodium Chloride 1,000 ml @ 1,000 mls/hr 1X ONCE IV Last administered on at 03:45; Start 07/16/18 at 03:45; Stop 07/16/18 at 04:44; Status DC Sodium Chloride 1,000 ml @ 125 mls/hr 1X ONCE IV ; Start 07/16/18 at 04:45; Stop 07/16/18 at 12:44; Status Cancel Sodium Chloride 1,000 ml @ 125 mls/hr Q8H IV Last administered on 07/20/18at 10 :04; Start 07/16/18 at 05:00; Stop 07/20/18 at 14:15; Status DC Enoxaparin Sodium (Lovenox 40mg Syringe) 40 mg Q24H SQ Last administered on at 13:42; Start 07/16/18 at 10:00; Stop 07/19/18 at 14:34; Status DC Albuterol/ Ipratropium (Duoneb) 3 ml RTQID NEB Last administered on 07/24/18at 11:20; Start 07/16/18 at 12:00 Albuterol Sulfate (Ventolin Neb Soln) 2.5 mg PRN Q4HRS PRN NEB SHORTNESS OF BREATH Last administered on 07/24/18at 04:22; Start 07/16/18 at 11:45 Al Hydroxide/Mg Hydroxide (Mylanta Plus Xs) 30 ml PRN Q2HR PRN PO HEARTBURN / GAS; Start 07/16/18 at 22:00; Stop 07/16/18 at 22:00; Status DC Famotidine (Pepcid) 20 mg QHS PO ; Start 07/17/18 at 21:00; Stop 07/17/18 at 21: 00; Status DC Famotidine (Pepcid) 20 mg 1X ONCE PO ; Start 07/16/18 at 22:00; Stop 07/16/18 at 22:00; Status DC Famotidine (Pepcid Vial) 20 mg QHS IVP Last administered on 07/17/18at 21:16; Start 07/17/18 at 21:00; Stop 07/18/18 at 08:21; Status DC Famotidine (Pepcid Vial) 20 mg 1X ONCE IVP Last administered on 07/16/18at 22: 38; Start 07/16/18 at 22:30; Stop 07/16/18 at 22:31; Status DC Iron Sucrose 200 mg/Sodium Chloride 110 ml @ 55 mls/hr DAILY IV Last administered on 07/21/18at 10:27; Start 07/17/18 at 12:30; Stop 07/21/18 at 12:29 ; Status DC Calcium Carbonate/ Glycine (Tums) 500 mg PRN AFTMEALHC PRN PO INDIGESTION Last administered on 07/18/18at 16:30; Start 07/17/18 at 21:15 Iohexol (Omnipaque 300 Mg/ml) 75 ml 1X ONCE IV Last administered on 07/18/18at 08:15; Start 07/18/18 at 08:15; Stop 07/18/18 at 08:16; Status DC Info (CONTRAST GIVEN -- Rx MONITORING) 1 each PRN DAILY PRN MC SEE COMMENTS; Start 07/18/18 at 08:15; Stop 07/20/18 at 08:14; Status DC Famotidine (Pepcid Vial) 20 mg BID IVP Last administered on 07/21/18at 07:41; Start 07/18/18 at 09:00; Stop 07/21/18 at 11:57; Status DC Multi-Ingredient Mouthwash/Gargle (Gi Cocktail) 20 ml PRN QID PRN PO CHEST PAIN Last administered on 07/18/18at 13:57; Start 07/18/18 at 12:00; Stop at 13:11; Status DC Enoxaparin Sodium (Lovenox 40mg Syringe) 40 mg Q12HR SQ Last administered on 08:39; Start 07/19/18 at 21:00 Prochlorperazine Edisylate (Compazine) 10 mg PRN Q6HRS PRN IV NAUSEA/VOMITING, 2ND CHOICE Last administered on 07/21/18 17:48; Start 07/21/18 at 10:15 Amoxicillin (Amoxil) 1,000 mg BID PO Last administered on 07/21/18 20:08; Start 07/21/18 at 12:30 Clarithromycin (Biaxin) 500 mg BID PO Last administered on 07/21/18 20:08; Start 07/21/18 at 12:30 Pantoprazole Sodium (Protonix) 40 mg BIDAC PO Last administered on 07/21/18 16 :52; Start 07/21/18 at 16:30 Fentanyl Citrate (Fentanyl 2ml Vial) 50 mcg PRN Q2HR PRN IV SEVERE PAIN; Start 07/21/18 at 22:30 Morphine Sulfate (Morphine Sulfate) 2 mg PRN Q2HR PRN IV MODERATE PAIN Last administered on 07/24/18at 12:13; Start 07/21/18 at 22:30 Sodium Chloride 1,000 ml @ 100 mls/hr Q10H IV Last administered on 07/24/18 06:23; Start 07/21/18 at 22:30 Famotidine (Pepcid Vial) 20 mg BID IVP Last administered on 07/24/18 08:37; Start 07/22/18 at 21:00 Levetiracetam 500 mg/Dextrose 105 ml @ 420 mls/hr Q12HR IV Last administered on 07/24/18 08:40; Start 07/23/18 at 13:00 Active Scripts Active Oxcarbazepine 300 Mg Tablet 900 Mg PO BID 30 Days Hydrocodone-Apap 5-325 (Hydrocodone Bit/Acetaminophen) 1 Each Tablet 1 Tab PO PRN Q4HRS PRN 14 Days Ondansetron Odt (Ondansetron) 4 Mg Tab.rapdis 4 Mg PO PRN Q6HRS PRN 14 Days Reported Advair 250-50 Diskus (Fluticasone/Salmeterol) 1 Each Disk.w.dev 1 Puff IH BID Proair Hfa Inhaler (Albuterol Sulfate) 8.5 Gm Hfa.aer.ad 1 Puff INH PRN Q6HRS PRN Miralax (Polyethylene Glycol 3350) 17 Gm Powd.pack 1 Packet PO BID Zyrtec (Cetirizine Hcl) 10 Mg Tablet 1 Tab PO DAILY Atorvastatin Calcium 20 Mg Tablet 20 Mg PO HS Topiramate 100 Mg Tablet 1 Tab PO BID Lisinopril-Hctz 10-12.5 Mg Tab (Lisinopril/Hydrochlorothiazide) 1 Each Tablet 1 Tab PO DAILY Vitals/I & O Vital Sign - Last 24 Hours 07/23/18 07/23/18 07/23/18 07/23/18 15:47 16:02 19:00 19:20 Temp 98.4 98.4 Pulse 108 Resp 16 B/P (MAP) 155/98 (117) Pulse Ox 95 98 O2 Delivery Room Air Room Air Room Air Room Air 07/23/18 07/23/18 07/23/18 07/24/18 20:05 21:55 23:00 03:00 Temp 98.9 98.1 98.9 98.1 Pulse 108 100 Resp 16 16 18 B/P (MAP) 164/101 (122) 143/93 (110) Pulse Ox 91 99 O2 Delivery Room Air Room Air Room Air Room Air 07/24/18 07/24/18 07/24/18 07/24/18 04:21 07:00 07:29 08:00 Temp 97.6 97.6 Pulse 93 Resp 20 B/P (MAP) 144/90 (108) Pulse Ox 95 99 100 O2 Delivery Room Air Room Air Room Air Room Air 07/24/18 07/24/18 07/24/18 07/24/18 11:00 11:21 12:13 12:45 Temp 97.5 97.5 Pulse 94 Resp 22 16 16 B/P (MAP) 139/80 (99) Pulse Ox 99 95 O2 Delivery Room Air Room Air Room Air Room Air 07/24/18 15:00 Temp 98.1 98.1 Pulse 96 Resp 20 B/P (MAP) 143/89 (107) Pulse Ox 100 O2 Delivery Room Air Intake and Output 07/23/18 07/23/18 07/24/18 15:00 23:00 07:00 Intake Total 1105 ml 3935 ml Output Total 1 ml 1 ml Balance 1104 ml 3934 ml APPELBAUM,ANY S MD Jul 24, 2018 15:32
[2018-07-24 19:00] VITALS: BP 141/89
[2018-07-24] MEDS: ATORVASTATIN CALCIUM 20 MG TABLET PO SCH (21:00)
[2018-07-24 22:39] VITALS: BP 146/91
[2018-07-25] MEDS: IV NORMAL SALINE 1000ML BAG 1,000 ML IV SCH ×3 (00:34→18:11)
[2018-07-25 03:00] VITALS: BP 151/88
[2018-07-25] MEDS: PANTOPRAZOLE 40 MG TABLET.DR. PO SCH ×2 (06:34→16:30)
[2018-07-25 07:00] VITALS: BP 134/96
[2018-07-25] MEDS: IPRATRPIUM/ALBUTEROL 0.5/2.5MG 3 ML NEBU. NEB SCH ×4 (07:22→20:00)
[2018-07-25 07:32] LABS: ALBUMIN 2.6 g/dL (3.4-5.0); ALBUMIN/GLOBULIN RATIO 0.7 (1.0-1.7); CALCIUM 8.8 mg/dL (8.5-10.1); CREATININE 0.6 mg/dL (0.6-1.0); GFR 130.8; POTASSIUM 3.5 mmol/L (3.5-5.1); TOTAL BILIRUBIN 0.3 mg/dL (0.2-1.0); TOTAL PROTEIN 6.2 g/dL (6.4-8.2)
[2018-07-25 07:36] LABS: BASO % 0 % (0-3); EOS # 0.2 x10^3/uL (0.0-0.7); EOS % 2 % (0-3); HEMATOCRIT 28.8 % (36.0-47.0); HEMOGLOBIN 9.6 g/dL (12.0-15.5); LYMPH # 1.3 x10^3/uL (1.0-4.8); LYMPH % 14 % (24-48); MEAN CORPUSCULAR HEMOGLOBIN 27 pg (25-35); MEAN CORPUSCULAR HGB CONC 33 g/dL (31-37); MEAN CORPUSCULAR VOLUME 82 fL (79-100); MONO # 0.7 x10^3/uL (0.0-1.1); MONO % 7 % (0-9); NEUT # 7.3 x10^3uL (1.8-7.7); NEUT % 77 % (31-73); PLATELET COUNT 244 x10^3/uL (140-400); RED BLOOD COUNT 3.53 x10^6/uL (3.50-5.40); RED CELL DISTRIBUTION WIDTH 19.6 % (11.5-14.5); WHITE BLOOD COUNT 9.5 x10^3/uL (4.0-11.0)
[2018-07-25] MEDS: POTASSIUM CHLORIDE 20 MEQ TABLET.ER. PO SCH (07:36)
[2018-07-25] MEDS: CLARITHROMYCIN 500 MG TABLET. PO SCH ×2 (07:36→21:36)
[2018-07-25] MEDS: AMOXICILLIN 250 MG CAPSULE. PO SCH ×2 (07:36→21:37)
[2018-07-25] MEDS: CETIRIZINE HCL 10 MG TABLET. PO SCH (07:37)
[2018-07-25] MEDS: TOPIRAMATE 25 MG TABLET. PO SCH ×2 (07:37→21:38)
[2018-07-25] MEDS: OXcarbazepine 300 MG TABLET PO SCH ×2 (07:37→21:37)
[2018-07-25] MEDS: LISINOPRIL 10 MG TABLET PO SCH (07:37)
[2018-07-25] MEDS: POLYETHYLENE GLYCOL 3350 17 GM PACKET. PO SCH ×2 (07:37→21:00)
--- NOTE | 2018-07-25 08:31 | PDOC ---
SUBJECTIVE Subjective S: NG tube out, tolerating ice chips though w/ diarrhea O: Physical exam: Gen.: Well-nourished and well-developed, resting in bed in no acute distress Psychiatric: Pleasant mood and affect Labs: Ferritin of 32, iron sat of 17, CEA 4.9 path: 6.0 cm invasive undifferentiated colorectal adenocarcinoma with invasion to the muscularis propria into the subserosa and pericolic soft tissues, 3 of 26 lymph nodes positive, no lymphovascular invasion, no perineural invasion, pT3 N1b M0, stage III Assessment and Plan: She is a 47-year-old female with colon cancer, resected, stage III Colon cancer: CT chest showed SAMM GGO 14 mm, will f/u CT in 3 mos likely or post chemo, her CEA was 4.9 (smoker), final pathology shows node + disease, will plan for FOLFOX, needs a port, can do as outpt prn Anemia: She had a ferritin of 14 in October 2017, with now a ferritin of 32 and iron sat of 17% though TIBC was low, s/p IV Fe beginnng 20 Sep sucrose x 800 mg , can recheck levels in a month or so... Tobacco abuse: Highly recommend smoking cessation Cervical intraepithelial neoplasia: She has gynecology follow-up pending DVT prophylaxis: w/ Lovenox Disposition: she'll follow-up w/ [facility] as an outpatient to plan chemo after dc, this is closer to her house then our clinic here, will get her in w/ a colon specialist med onc Thank you kindly, and please do not hesitate to call with further questions. OBJECTIVE Vital Signs Vital Signs Date Time Temp Pulse Resp B/P (MAP) Pulse Ox O2 Delivery O2 Flow Rate FiO2 07/25/18 07:22 97 Room Air 07/25/18 07:00 98.4 88 18 134/96 (109) 95 Room Air 98.4 07/25/18 03:00 98.1 92 16 151/88 (109) 98 Room Air 98.1 07/24/18 22:39 98.7 103 16 146/91 (109) 91 Room Air 98.7 07/24/18 20:08 99 Room Air 07/24/18 20:00 Room Air 07/24/18 19:00 98.8 94 16 141/89 (106) 100 Room Air 98.8 07/24/18 15:32 100 Room Air 07/24/18 15:00 98.1 96 20 143/89 (107) 100 Room Air 98.1 07/24/18 12:45 16 Room Air 07/24/18 12:13 16 Room Air 07/24/18 11:21 95 Room Air 07/24/18 11:00 97.5 94 22 139/80 (99) 99 Room Air 97.5 I & O Intake and Output 07/25/18 07:00 Intake Total 1106 ml Balance 1106 ml Intake Oral 0 ml IV Total 1106 ml COMMENT Lab Laboratory Tests Test 07/25/18 06:35 White Blood Count 9.5 x10^3/uL (4.0-11.0) Red Blood Count 3.53 x10^6/uL (3.50-5.40) Hemoglobin 9.6 g/dL (12.0-15.5) Hematocrit 28.8 % (36.0-47.0) Mean Corpuscular Volume 82 fL (79-100) Mean Corpuscular Hemoglobin 27 pg (25-35) Mean Corpuscular Hemoglobin Concent 33 g/dL (31-37) Red Cell Distribution Width 19.6 % (11.5-14.5) Platelet Count 244 x10^3/uL (140-400) Neutrophils (%) (Auto) 77 % (31-73) Lymphocytes (%) (Auto) 14 % (24-48) Monocytes (%) (Auto) 7 % (0-9) Eosinophils (%) (Auto) 2 % (0-3) Basophils (%) (Auto) 0 % (0-3) Neutrophils # (Auto) 7.3 x10^3uL (1.8-7.7) Lymphocytes # (Auto) 1.3 x10^3/uL (1.0-4.8) Monocytes # (Auto) 0.7 x10^3/uL (0.0-1.1) Eosinophils # (Auto) 0.2 x10^3/uL (0.0-0.7) Basophils # (Auto) 0.0 x10^3/uL (0.0-0.2) Sodium Level 142 mmol/L (136-145) Potassium Level 3.5 mmol/L (3.5-5.1) Chloride Level 110 mmol/L (98-107) Carbon Dioxide Level 18 mmol/L (21-32) Anion Gap 14 (6-14) Blood Urea Nitrogen 6 mg/dL (7-20) Creatinine 0.6 mg/dL (0.6-1.0) Estimated GFR (Cockcroft-Gault) 130.8 BUN/Creatinine Ratio 10 (6-20) Glucose Level 74 mg/dL (70-99) Calcium Level 8.8 mg/dL (8.5-10.1) Total Bilirubin 0.3 mg/dL (0.2-1.0) Aspartate Amino Transf (AST/SGOT) 47 U/L (15-37) Alanine Aminotransferase (ALT/SGPT) 88 U/L (14-59) Alkaline Phosphatase 83 U/L (46-116) Total Protein 6.2 g/dL (6.4-8.2) Albumin 2.6 g/dL (3.4-5.0) Albumin/Globulin Ratio 0.7 (1.0-1.7) PABLO CHOI MD Jul 25, 2018 08:31
[2018-07-25] MEDS: FAMOTIDINE 20 MG/2 ML VIAL IVP SCH (08:41)
[2018-07-25] MEDS: levETIRAcetam 500 MG in IV DEXTROSE 5% 100ML 100 ML IV SCH ×2 (08:41→21:00)
[2018-07-25] MEDS: ENOXAPARIN 40 MG/0.4 ML SYRINGE. SQ SCH ×2 (08:43→21:39)
--- NOTE | 2018-07-25 09:32 | PDOC ---
SURGICAL PROGRESS NOTE Subjective Overall improving. NGT out and tolerating clear liquids Vital Signs Vital Signs Date Time Temp Pulse Resp B/P (MAP) Pulse Ox O2 Delivery O2 Flow Rate FiO2 07/25/18 07:22 97 Room Air 07/25/18 07:00 98.4 88 18 134/96 (109) 98.4 I&O Intake and Output 07/25/18 07:00 Intake Total 1106 ml Balance 1106 ml Intake Oral 0 ml IV Total 1106 ml PATIENT HAS A ADAM: No General: Alert, Oriented X3, Cooperative, mild distress Abdomen: Normal bowel sounds, Soft, Other (mild incisional tenderness C/D/I) Labs Laboratory Tests Test 07/24/18 06:43 07/25/18 06:35 White Blood Count 12.6 x10^3/uL (4.0-11.0) 9.5 x10^3/uL (4.0-11.0) Red Blood Count 3.51 x10^6/uL (3.50-5.40) 3.53 x10^6/uL (3.50-5.40) Hemoglobin 9.2 g/dL (12.0-15.5) 9.6 g/dL (12.0-15.5) Hematocrit 28.7 % (36.0-47.0) 28.8 % (36.0-47.0) Mean Corpuscular Volume 82 fL (79-100) 82 fL (79-100) Mean Corpuscular Hemoglobin 26 pg (25-35) 27 pg (25-35) Mean Corpuscular Hemoglobin Concent 32 g/dL (31-37) 33 g/dL (31-37) Red Cell Distribution Width 19.5 % (11.5-14.5) 19.6 % (11.5-14.5) Platelet Count 258 x10^3/uL (140-400) 244 x10^3/uL (140-400) Neutrophils (%) (Auto) 81 % (31-73) 77 % (31-73) Lymphocytes (%) (Auto) 10 % (24-48) 14 % (24-48) Monocytes (%) (Auto) 7 % (0-9) 7 % (0-9) Eosinophils (%) (Auto) 1 % (0-3) 2 % (0-3) Basophils (%) (Auto) 0 % (0-3) 0 % (0-3) Neutrophils # (Auto) 10.2 x10^3uL (1.8-7.7) 7.3 x10^3uL (1.8-7.7) Lymphocytes # (Auto) 1.3 x10^3/uL (1.0-4.8) 1.3 x10^3/uL (1.0-4.8) Monocytes # (Auto) 0.9 x10^3/uL (0.0-1.1) 0.7 x10^3/uL (0.0-1.1) Eosinophils # (Auto) 0.2 x10^3/uL (0.0-0.7) 0.2 x10^3/uL (0.0-0.7) Basophils # (Auto) 0.0 x10^3/uL (0.0-0.2) 0.0 x10^3/uL (0.0-0.2) Sodium Level 143 mmol/L (136-145) 142 mmol/L (136-145) Potassium Level 3.6 mmol/L (3.5-5.1) 3.5 mmol/L (3.5-5.1) Chloride Level 110 mmol/L (98-107) 110 mmol/L (98-107) Carbon Dioxide Level 17 mmol/L (21-32) 18 mmol/L (21-32) Anion Gap 16 (6-14) 14 (6-14) Blood Urea Nitrogen 8 mg/dL (7-20) 6 mg/dL (7-20) Creatinine 0.7 mg/dL (0.6-1.0) 0.6 mg/dL (0.6-1.0) Estimated GFR (Cockcroft-Gault) 109.5 130.8 BUN/Creatinine Ratio 11 (6-20) 10 (6-20) Glucose Level 65 mg/dL (70-99) 74 mg/dL (70-99) Calcium Level 9.0 mg/dL (8.5-10.1) 8.8 mg/dL (8.5-10.1) Total Bilirubin 0.3 mg/dL (0.2-1.0) 0.3 mg/dL (0.2-1.0) Aspartate Amino Transf (AST/SGOT) 68 U/L (15-37) 47 U/L (15-37) Alanine Aminotransferase (ALT/SGPT) 111 U/L (14-59) 88 U/L (14-59) Alkaline Phosphatase 91 U/L (46-116) 83 U/L (46-116) Total Protein 6.1 g/dL (6.4-8.2) 6.2 g/dL (6.4-8.2) Albumin 2.6 g/dL (3.4-5.0) 2.6 g/dL (3.4-5.0) Albumin/Globulin Ratio 0.7 (1.0-1.7) 0.7 (1.0-1.7) Laboratory Tests Test 07/25/18 06:35 White Blood Count 9.5 x10^3/uL (4.0-11.0) Red Blood Count 3.53 x10^6/uL (3.50-5.40) Hemoglobin 9.6 g/dL (12.0-15.5) Hematocrit 28.8 % (36.0-47.0) Mean Corpuscular Volume 82 fL (79-100) Mean Corpuscular Hemoglobin 27 pg (25-35) Mean Corpuscular Hemoglobin Concent 33 g/dL (31-37) Red Cell Distribution Width 19.6 % (11.5-14.5) Platelet Count 244 x10^3/uL (140-400) Neutrophils (%) (Auto) 77 % (31-73) Lymphocytes (%) (Auto) 14 % (24-48) Monocytes (%) (Auto) 7 % (0-9) Eosinophils (%) (Auto) 2 % (0-3) Basophils (%) (Auto) 0 % (0-3) Neutrophils # (Auto) 7.3 x10^3uL (1.8-7.7) Lymphocytes # (Auto) 1.3 x10^3/uL (1.0-4.8) Monocytes # (Auto) 0.7 x10^3/uL (0.0-1.1) Eosinophils # (Auto) 0.2 x10^3/uL (0.0-0.7) Basophils # (Auto) 0.0 x10^3/uL (0.0-0.2) Sodium Level 142 mmol/L (136-145) Potassium Level 3.5 mmol/L (3.5-5.1) Chloride Level 110 mmol/L (98-107) Carbon Dioxide Level 18 mmol/L (21-32) Anion Gap 14 (6-14) Blood Urea Nitrogen 6 mg/dL (7-20) Creatinine 0.6 mg/dL (0.6-1.0) Estimated GFR (Cockcroft-Gault) 130.8 BUN/Creatinine Ratio 10 (6-20) Glucose Level 74 mg/dL (70-99) Calcium Level 8.8 mg/dL (8.5-10.1) Total Bilirubin 0.3 mg/dL (0.2-1.0) Aspartate Amino Transf (AST/SGOT) 47 U/L (15-37) Alanine Aminotransferase (ALT/SGPT) 88 U/L (14-59) Alkaline Phosphatase 83 U/L (46-116) Total Protein 6.2 g/dL (6.4-8.2) Albumin 2.6 g/dL (3.4-5.0) Albumin/Globulin Ratio 0.7 (1.0-1.7) Problem List Problems Medical Problems: (1) Abdominal pain Status: Acute (2) Bandemia Status: Acute (3) Leukocytosis Status: Acute (4) Nausea vomiting and diarrhea Status: Acute (5) UTI (urinary tract infection) Status: Acute Assessment/Plan S/P colectomy for cancer Adv diet D/C planning RAJAT HAMILTON MD Jul 25, 2018 09:32
--- NOTE | 2018-07-25 10:46 | PDOC ---
Subjective: Subjective: Tolerating sips of water. Watery stools. Feet are swollen. Asks me who I am. Objective: Vital Signs: Vital Signs Date Time Temp Pulse Resp B/P (MAP) Pulse Ox O2 Delivery O2 Flow Rate FiO2 07/25/18 07:22 97 Room Air 07/25/18 07:00 98.4 88 18 134/96 (109) 98.4 Labs: Laboratory Tests Test 07/25/18 06:35 White Blood Count 9.5 x10^3/uL Red Blood Count 3.53 x10^6/uL Hemoglobin 9.6 g/dL Hematocrit 28.8 % Mean Corpuscular Volume 82 fL Mean Corpuscular Hemoglobin 27 pg Mean Corpuscular Hemoglobin Concent 33 g/dL Red Cell Distribution Width 19.6 % Platelet Count 244 x10^3/uL Neutrophils (%) (Auto) 77 % Lymphocytes (%) (Auto) 14 % Monocytes (%) (Auto) 7 % Eosinophils (%) (Auto) 2 % Basophils (%) (Auto) 0 % Neutrophils # (Auto) 7.3 x10^3uL Lymphocytes # (Auto) 1.3 x10^3/uL Monocytes # (Auto) 0.7 x10^3/uL Eosinophils # (Auto) 0.2 x10^3/uL Basophils # (Auto) 0.0 x10^3/uL Sodium Level 142 mmol/L Potassium Level 3.5 mmol/L Chloride Level 110 mmol/L Carbon Dioxide Level 18 mmol/L Anion Gap 14 Blood Urea Nitrogen 6 mg/dL Creatinine 0.6 mg/dL Estimated GFR (Cockcroft-Gault) 130.8 BUN/Creatinine Ratio 10 Glucose Level 74 mg/dL Calcium Level 8.8 mg/dL Total Bilirubin 0.3 mg/dL Aspartate Amino Transf (AST/SGOT) 47 U/L Alanine Aminotransferase (ALT/SGPT) 88 U/L Alkaline Phosphatase 83 U/L Total Protein 6.2 g/dL Albumin 2.6 g/dL Albumin/Globulin Ratio 0.7 PE: GEN: NAD LUNGS: CTAB HEART: RRR ABD: quiet, soft NEURO/PSYCH: A & O 3 A/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 pylori Elevated LFTs - better -- Improving - no n/v. Reviewed surgery note - plans to advance diet. Resume H. pylori treatment as able. LUTHER-BRANINE,ARVIND PA Jul 25, 2018 10:46
[2018-07-25 11:00] VITALS: BP 137/87
[2018-07-25 15:00] VITALS: BP 150/95
[2018-07-25 19:15] VITALS: BP 152/99
--- NOTE | 2018-07-25 20:56 | PDOC ---
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 Nonobstructing left intrarenal calculi. Enlarged fibroid uterus. Probable renal cysts. asthma HTN morbid obesity h/o seizure AMS at hosp, with [employer] likely gastric bx + h pylori plan: ice chips NGT out dc hctz, monitor bp, lisinopril dvt ppx add duoneb, albuterol prn cont seizure meds, neuro consulted for AMS dc abx onco consulted, garsia CT for staging, h pylori treatment defer to GI talked to pt about the path pt to f/u at [facility] History of Present Illness History of Present Illness Out having surgery for colon mass which is a new diagnosis- dx after EGD colonoscopy this admission CAT scan: 1. Mural thickening involving the colon in the ileocecal valve region raising the possibility of colonic malignancy. An inflammatory process cannot be excluded. There is mild associated dilatation of the distal small bowel and mild mesenteric adenopathy at this level. 2. Small amount of free fluid in the pelvis. 3. Cholelithiasis. 4. Nonobstructing left intrarenal calculi. 5. Enlarged fibroid uterus. 6. Probable renal cysts. has 2 times BM 07/17 as per pt very confused 07/16 night, [employer] stopped. pain is ok pt has some dementia or cognitive impairement, no remember what i told her Vitals Vitals Vital Signs Date Time Temp Pulse Resp B/P (MAP) Pulse Ox O2 Delivery O2 Flow Rate FiO2 07/25/18 20:30 Room Air 07/25/18 19:15 97.7 95 18 152/99 (116) 96 97.7 Physical Exam General: Alert, Oriented X3, Cooperative, mild distress Heart: Regular rate, Normal S1, Normal S2, No murmurs Lungs: Clear Abdomen: Normal bowel sounds, Soft, Other (mild incisional tenderness C/D/I) Extremities: No clubbing, No cyanosis, Normal pulses Skin: No rashes, No breakdown Labs LABS Laboratory Tests Test 07/25/18 06:35 White Blood Count 9.5 x10^3/uL (4.0-11.0) Red Blood Count 3.53 x10^6/uL (3.50-5.40) Hemoglobin 9.6 g/dL (12.0-15.5) Hematocrit 28.8 % (36.0-47.0) Mean Corpuscular Volume 82 fL (79-100) Mean Corpuscular Hemoglobin 27 pg (25-35) Mean Corpuscular Hemoglobin Concent 33 g/dL (31-37) Red Cell Distribution Width 19.6 % (11.5-14.5) Platelet Count 244 x10^3/uL (140-400) Neutrophils (%) (Auto) 77 % (31-73) Lymphocytes (%) (Auto) 14 % (24-48) Monocytes (%) (Auto) 7 % (0-9) Eosinophils (%) (Auto) 2 % (0-3) Basophils (%) (Auto) 0 % (0-3) Neutrophils # (Auto) 7.3 x10^3uL (1.8-7.7) Lymphocytes # (Auto) 1.3 x10^3/uL (1.0-4.8) Monocytes # (Auto) 0.7 x10^3/uL (0.0-1.1) Eosinophils # (Auto) 0.2 x10^3/uL (0.0-0.7) Basophils # (Auto) 0.0 x10^3/uL (0.0-0.2) Sodium Level 142 mmol/L (136-145) Potassium Level 3.5 mmol/L (3.5-5.1) Chloride Level 110 mmol/L (98-107) Carbon Dioxide Level 18 mmol/L (21-32) Anion Gap 14 (6-14) Blood Urea Nitrogen 6 mg/dL (7-20) Creatinine 0.6 mg/dL (0.6-1.0) Estimated GFR (Cockcroft-Gault) 130.8 BUN/Creatinine Ratio 10 (6-20) Glucose Level 74 mg/dL (70-99) Calcium Level 8.8 mg/dL (8.5-10.1) Total Bilirubin 0.3 mg/dL (0.2-1.0) Aspartate Amino Transf (AST/SGOT) 47 U/L (15-37) Alanine Aminotransferase (ALT/SGPT) 88 U/L (14-59) Alkaline Phosphatase 83 U/L (46-116) Total Protein 6.2 g/dL (6.4-8.2) Albumin 2.6 g/dL (3.4-5.0) Albumin/Globulin Ratio 0.7 (1.0-1.7) Assessment and Plan Assessmemt and Plan Problems Medical Problems: (1) Abdominal pain Status: Acute (2) Bandemia Status: Acute (3) Leukocytosis Status: Acute (4) Nausea vomiting and diarrhea Status: Acute (5) UTI (urinary tract infection) Status: Acute Comment Review of Relevant I have reviewed the following items dawson (where applicable) has been applied. Labs Laboratory Tests Test 07/24/18 06:43 07/25/18 06:35 White Blood Count 12.6 x10^3/uL (4.0-11.0) 9.5 x10^3/uL (4.0-11.0) Red Blood Count 3.51 x10^6/uL (3.50-5.40) 3.53 x10^6/uL (3.50-5.40) Hemoglobin 9.2 g/dL (12.0-15.5) 9.6 g/dL (12.0-15.5) Hematocrit 28.7 % (36.0-47.0) 28.8 % (36.0-47.0) Mean Corpuscular Volume 82 fL (79-100) 82 fL (79-100) Mean Corpuscular Hemoglobin 26 pg (25-35) 27 pg (25-35) Mean Corpuscular Hemoglobin Concent 32 g/dL (31-37) 33 g/dL (31-37) Red Cell Distribution Width 19.5 % (11.5-14.5) 19.6 % (11.5-14.5) Platelet Count 258 x10^3/uL (140-400) 244 x10^3/uL (140-400) Neutrophils (%) (Auto) 81 % (31-73) 77 % (31-73) Lymphocytes (%) (Auto) 10 % (24-48) 14 % (24-48) Monocytes (%) (Auto) 7 % (0-9) 7 % (0-9) Eosinophils (%) (Auto) 1 % (0-3) 2 % (0-3) Basophils (%) (Auto) 0 % (0-3) 0 % (0-3) Neutrophils # (Auto) 10.2 x10^3uL (1.8-7.7) 7.3 x10^3uL (1.8-7.7) Lymphocytes # (Auto) 1.3 x10^3/uL (1.0-4.8) 1.3 x10^3/uL (1.0-4.8) Monocytes # (Auto) 0.9 x10^3/uL (0.0-1.1) 0.7 x10^3/uL (0.0-1.1) Eosinophils # (Auto) 0.2 x10^3/uL (0.0-0.7) 0.2 x10^3/uL (0.0-0.7) Basophils # (Auto) 0.0 x10^3/uL (0.0-0.2) 0.0 x10^3/uL (0.0-0.2) Sodium Level 143 mmol/L (136-145) 142 mmol/L (136-145) Potassium Level 3.6 mmol/L (3.5-5.1) 3.5 mmol/L (3.5-5.1) Chloride Level 110 mmol/L (98-107) 110 mmol/L (98-107) Carbon Dioxide Level 17 mmol/L (21-32) 18 mmol/L (21-32) Anion Gap 16 (6-14) 14 (6-14) Blood Urea Nitrogen 8 mg/dL (7-20) 6 mg/dL (7-20) Creatinine 0.7 mg/dL (0.6-1.0) 0.6 mg/dL (0.6-1.0) Estimated GFR (Cockcroft-Gault) 109.5 130.8 BUN/Creatinine Ratio 11 (6-20) 10 (6-20) Glucose Level 65 mg/dL (70-99) 74 mg/dL (70-99) Calcium Level 9.0 mg/dL (8.5-10.1) 8.8 mg/dL (8.5-10.1) Total Bilirubin 0.3 mg/dL (0.2-1.0) 0.3 mg/dL (0.2-1.0) Aspartate Amino Transf (AST/SGOT) 68 U/L (15-37) 47 U/L (15-37) Alanine Aminotransferase (ALT/SGPT) 111 U/L (14-59) 88 U/L (14-59) Alkaline Phosphatase 91 U/L (46-116) 83 U/L (46-116) Total Protein 6.1 g/dL (6.4-8.2) 6.2 g/dL (6.4-8.2) Albumin 2.6 g/dL (3.4-5.0) 2.6 g/dL (3.4-5.0) Albumin/Globulin Ratio 0.7 (1.0-1.7) 0.7 (1.0-1.7) Laboratory Tests Test 07/25/18 06:35 White Blood Count 9.5 x10^3/uL (4.0-11.0) Red Blood Count 3.53 x10^6/uL (3.50-5.40) Hemoglobin 9.6 g/dL (12.0-15.5) Hematocrit 28.8 % (36.0-47.0) Mean Corpuscular Volume 82 fL (79-100) Mean Corpuscular Hemoglobin 27 pg (25-35) Mean Corpuscular Hemoglobin Concent 33 g/dL (31-37) Red Cell Distribution Width 19.6 % (11.5-14.5) Platelet Count 244 x10^3/uL (140-400) Neutrophils (%) (Auto) 77 % (31-73) Lymphocytes (%) (Auto) 14 % (24-48) Monocytes (%) (Auto) 7 % (0-9) Eosinophils (%) (Auto) 2 % (0-3) Basophils (%) (Auto) 0 % (0-3) Neutrophils # (Auto) 7.3 x10^3uL (1.8-7.7) Lymphocytes # (Auto) 1.3 x10^3/uL (1.0-4.8) Monocytes # (Auto) 0.7 x10^3/uL (0.0-1.1) Eosinophils # (Auto) 0.2 x10^3/uL (0.0-0.7) Basophils # (Auto) 0.0 x10^3/uL (0.0-0.2) Sodium Level 142 mmol/L (136-145) Potassium Level 3.5 mmol/L (3.5-5.1) Chloride Level 110 mmol/L (98-107) Carbon Dioxide Level 18 mmol/L (21-32) Anion Gap 14 (6-14) Blood Urea Nitrogen 6 mg/dL (7-20) Creatinine 0.6 mg/dL (0.6-1.0) Estimated GFR (Cockcroft-Gault) 130.8 BUN/Creatinine Ratio 10 (6-20) Glucose Level 74 mg/dL (70-99) Calcium Level 8.8 mg/dL (8.5-10.1) Total Bilirubin 0.3 mg/dL (0.2-1.0) Aspartate Amino Transf (AST/SGOT) 47 U/L (15-37) Alanine Aminotransferase (ALT/SGPT) 88 U/L (14-59) Alkaline Phosphatase 83 U/L (46-116) Total Protein 6.2 g/dL (6.4-8.2) Albumin 2.6 g/dL (3.4-5.0) Albumin/Globulin Ratio 0.7 (1.0-1.7) Microbiology 07/20/18 Urine Culture - Final, Complete 07/20/18 Urine Culture Result 1 (SHEBA) - Final, Complete Medications Current Medications Sodium Chloride 1,000 ml @ 1,000 mls/hr 1X ONCE IV Last administered on at 09:37; Start 07/12/18 at 09:15; Stop 07/12/18 at 10:14; Status DC Ondansetron HCl (Zofran) 4 mg 1X ONCE IV Last administered on 07/12/18at 09:43 ; Start 07/12/18 at 09:15; Stop 07/12/18 at 09:16; Status DC Dicyclomine HCl (Bentyl) 20 mg 1X ONCE IM Last administered on 07/12/18at 10:44 ; Start 07/12/18 at 09:15; Stop 07/12/18 at 09:16; Status DC Iohexol (Omnipaque 300 Mg/ml) 75 ml 1X ONCE IV Last administered on 07/12/18at 10:30; Start 07/12/18 at 10:30; Stop 07/12/18 at 10:32; Status DC Info (CONTRAST GIVEN -- Rx MONITORING) 1 each PRN DAILY PRN MC SEE COMMENTS; Start 07/12/18 at 10:45; Stop 07/14/18 at 10:44; Status DC Metronidazole 100 ml @ 100 mls/hr 1X ONCE IV Last administered on 07/12/18at 13:10; Start 07/12/18 at 12:30; Stop 07/12/18 at 13:29; Status DC Ciprofloxacin/ Dextrose 200 ml @ 200 mls/hr Q12HR IV Last administered on 07/12at 23:00; Start 07/12/18 at 13:30; Stop 07/13/18 at 08:57; Status DC Morphine Sulfate (Morphine Sulfate) 2 mg PRN Q2HR PRN IV SEVERE PAIN Last administered on 07/13/18at 16:10; Start 07/12/18 at 16:00; Stop 07/17/18 at 09:36 ; Status DC Atorvastatin Calcium (Lipitor) 20 mg HS PO Last administered on 07/21/18at 20:12 ; Start 07/12/18 at 21:00 Cetirizine HCl (ZyrTEC) 10 mg DAILY PO Last administered on 07/21/18 10:32; Start 07/12/18 at 16:00 Lubiprostone (Amitiza) 8 mcg BID PO Last administered on 07/13/18at 08:23; Start 07/12/18 at 21:00; Stop 07/13/18 at 08:49; Status DC Lisinopril (Prinivil) 10 mg DAILY PO Last administered on 07/21/18at 10:31; Start 07/13/18 at 09:00 Oxcarbazepine (Trileptal) 300 mg BID PO Last administered on 07/13/18at 08:23; Start 07/12/18 at 21:00; Stop 07/13/18 at 11:19; Status DC Polyethylene Glycol (miraLAX PACKET) 17 gm BID PO Last administered on at 10:32; Start 07/12/18 at 21:00 Topiramate (Topamax) 100 mg BID PO Last administered on 07/21/18at 20:08; Start 07/12/18 at 21:00 Hydrochlorothiazide (Microzide) 12.5 mg DAILY PO Last administered on at 11:44; Start 07/13/18 at 09:00; Stop 07/16/18 at 11:39; Status DC Ketorolac Tromethamine (Toradol 30mg Vial) 30 mg PRN Q6HRS PRN IV MILD - MODERATE PAIN; Start 07/12/18 at 20:00; Stop 07/17/18 at 19:59; Status DC Lactobacillus Rhamnosus (Culturelle) 1 cap BID PO Last administered on at 20:12; Start 07/13/18 at 09:00; Stop 07/22/18 at 16:39; Status DC Ciprofloxacin/ Dextrose 200 ml @ 200 mls/hr Q12H IV Last administered on at 10:49; Start 07/13/18 at 11:00; Stop 07/16/18 at 11:39; Status DC Metronidazole 100 ml @ 100 mls/hr Q8HRS IV Last administered on 07/16/18at 06: 09; Start 07/13/18 at 09:00; Stop 07/16/18 at 11:39; Status DC Potassium Chloride (Klor-Con) 40 meq 1X ONCE PO Last administered on 09:26; Start 07/13/18 at 08:45; Stop 07/13/18 at 08:52; Status DC Potassium Chloride (Klor-Con) 40 meq DAILYWBKFT PO Last administered on at 10:31; Start 07/14/18 at 08:00 Loperamide HCl (Imodium) 2 mg PRN Q15MIN PRN PO DIARRHEA Last administered on at 09:40; Start 07/13/18 at 08:45 Ondansetron HCl (Zofran) 4 mg PRN Q6HRS PRN IV NAUSEA/VOMITING, 1ST CHOICE Last administered on 07/21/18at 07:41; Start 07/13/18 at 08:45 Ondansetron HCl (Zofran Odt) 4 mg PRN Q6HRS PRN PO NAUSEA/VOMITING Last administered on 07/21/18 16:52; Start 07/13/18 at 08:45 Acetaminophen (Tylenol) 500 mg PRN Q6HRS PRN PO MILD PAIN / TEMP Last administered on 07/17/18at 10:09; Start 07/13/18 at 08:45 Acetaminophen/ Hydrocodone Bitart (Lortab 5/325) 1 tab PRN Q4HRS PRN PO PAIN MODERATE TO SEVERE Last administered on 9/24/18at 16:55; Start 07/13/18 at 08:45 Sodium Chloride 1,000 ml @ 100 mls/hr 1X ONCE IV Last administered on at 09:33; Start 07/13/18 at 09:00; Stop 07/13/18 at 18:59; Status DC Oxcarbazepine (Trileptal) 900 mg BID PO Last administered on 07/21/18at 20:08; Start 07/13/18 at 21:00 Bisacodyl (Dulcolax Tab) 10 mg 1X ONCE PO Last administered on 07/13/18at 17:07 ; Start 07/13/18 at 17:00; Stop 07/13/18 at 17:01; Status DC Polyethylene Glycol (miraLAX Powder BULK BOTTLE) 238 gm 1X ONCE PO Last administered on 07/13/18at 19:35; Start 07/13/18 at 19:00; Stop 07/13/18 at 19:01 ; Status DC Sodium Chloride (Normal Saline Flush) 3 ml QSHIFT PRN IV AFTER MEDS AND BLOOD DRAWS; Start 07/13/18 at 16:45 Sodium Chloride (Normal Saline Flush) 3 ml QSHIFT PRN IV AFTER MEDS AND BLOOD DRAWS; Start 07/13/18 at 16:45; Status UNV Benzocaine (Hurricaine One) 1 spray STK-MED ONCE .ROUTE ; Start 07/14/18 at 07: 58; Stop 07/14/18 at 07:59; Status DC Midazolam HCl (Versed) 5 mg STK-MED ONCE .ROUTE ; Start 07/14/18 at 07:59; Stop 07/14/18 at 08:00; Status DC Fentanyl Citrate (Fentanyl 2ml Vial) 100 mcg STK-MED ONCE .ROUTE ; Start at 07:59; Stop 07/14/18 at 08:00; Status DC Propofol 40 ml @ As Directed STK-MED ONCE IV ; Start 07/14/18 at 08:34; Stop at 08:35; Status DC Lidocaine HCl (Lidocaine Pf 2% Vial) 5 ml STK-MED ONCE .ROUTE ; Start 07/14/18 at 08:34; Stop 07/14/18 at 08:35; Status DC Cefazolin Sodium/ Dextrose 50 ml @ 100 mls/hr 1X PREOP PRN IV director of graduate medical education to OR Last administered on 07/15/18at 09:40; Start 07/15/18 at 06:00; Stop 07/15/18 at 18:00; Status DC Metronidazole 100 ml @ 100 mls/hr 1X PREOP PRN IV director of graduate medical education to OR; Start at 06:00; Stop 07/15/18 at 18:00; Status DC Fentanyl Citrate (Fentanyl 2ml Vial) 25 mcg PRN Q5MIN PRN IV MILD PAIN; Start 07/15/18 at 07:00; Stop 07/15/18 at 21:00; Status DC Fentanyl Citrate (Fentanyl 2ml Vial) 50 mcg PRN Q5MIN PRN IV MODERATE TO SEVERE PAIN Last administered on 07/15/18at 13:55; Start 07/15/18 at 07:00; Stop 07/15/18 at 21:00; Status DC Morphine Sulfate (Morphine Sulfate) 1 mg PRN Q10MIN PRN IV SEVERE PAIN; Start 07/15/18 at 07:00; Stop 07/15/18 at 21:00; Status DC Ringer's Solution 1,000 ml @ 30 mls/hr Q24H IV ; Start 07/15/18 at 07:00; Stop 07/15/18 at 18:59; Status DC Lidocaine HCl (Xylocaine-Mpf 1% 2ml Vial) 2 ml PRN 1X PRN ID IV START; Start at 07:00; Stop 07/15/18 at 21:00; Status DC Hydromorphone HCl (Dilaudid) 0.5 mg PRN Q10MIN PRN IV SEV PAIN, Second choice; Start 07/15/18 at 07:00; Stop 07/15/18 at 21:00; Status DC Prochlorperazine Edisylate (Compazine) 5 mg PACU PRN PRN IV NAUSEA, MRX1; Start 07/15/18 at 07:00; Stop 07/15/18 at 21:00; Status DC Epinephrine HCl (Adrenalin) 30 mg STK-MED ONCE .ROUTE ; Start 07/15/18 at 08:02 ; Stop 07/15/18 at 09:03; Status DC Bupivacaine HCl (Sensorcaine Mpf 0.25%) 30 ml STK-MED ONCE .ROUTE ; Start at 08:02; Stop 07/15/18 at 09:03; Status DC Sevoflurane (Ultane) 90 ml STK-MED ONCE IH ; Start 07/15/18 at 09:12; Stop 07/15 at 09:13; Status DC Midazolam HCl (Versed) 2 mg STK-MED ONCE .ROUTE ; Start 07/15/18 at 09:12; Stop 07/15/18 at 09:13; Status DC Fentanyl Citrate (Fentanyl 2ml Vial) 100 mcg STK-MED ONCE .ROUTE ; Start at 09:12; Stop 07/15/18 at 09:13; Status DC Glycopyrrolate (Robinul) 1 mg STK-MED ONCE .ROUTE ; Start 07/15/18 at 09:13; Stop 07/15/18 at 09:14; Status DC Neostigmine Methylsulfate (Neostigmine Methylsulfate) 5 mg STK-MED ONCE .ROUTE ; Start 07/15/18 at 09:13; Stop 07/15/18 at 09:14; Status DC Rocuronium Jakin (Zemuron) 50 mg STK-MED ONCE .ROUTE ; Start 07/15/18 at 09:13 ; Stop 07/15/18 at 09:14; Status DC Dexamethasone Sodium Phosphate (Decadron) 20 mg STK-MED ONCE .ROUTE ; Start at 09:13; Stop 07/15/18 at 09:14; Status DC Ketorolac Tromethamine (Toradol For Or Only) 30 mg STK-MED ONCE INJ ; Start at 09:13; Stop 07/15/18 at 09:14; Status DC Propofol 20 ml @ As Directed STK-MED ONCE IV ; Start 07/15/18 at 09:13; Stop at 09:14; Status DC Ondansetron HCl (Zofran) 4 mg STK-MED ONCE .ROUTE ; Start 07/15/18 at 09:13; Stop 07/15/18 at 09:14; Status DC Phenylephrine HCl (PHENYLEPHRINE in 0.9% NACL PF) 1 mg STK-MED ONCE IV ; Start 07/15/18 at 09:53; Stop 07/15/18 at 09:54; Status DC Fentanyl Citrate (Fentanyl 2ml Vial) 100 mcg STK-MED ONCE .ROUTE ; Start at 10:05; Stop 07/15/18 at 10:06; Status DC Esmolol HCl (Brevibloc) 100 mg STK-MED ONCE IV ; Start 07/15/18 at 10:09; Stop 07/15/18 at 10:10; Status DC Rocuronium Jakin (Zemuron) 50 mg STK-MED ONCE .ROUTE ; Start 07/15/18 at 10:10 ; Stop 07/15/18 at 10:11; Status DC Ephedrine Sulfate (ePHEDrine PF IN SALINE SYRINGE) 50 mg STK-MED ONCE IV ; Start 07/15/18 at 11:02; Stop 07/15/18 at 11:03; Status DC Fentanyl Citrate (Fentanyl 2ml Vial) 100 mcg STK-MED ONCE .ROUTE ; Start at 11:09; Stop 07/15/18 at 11:10; Status DC Fentanyl Citrate (Fentanyl 2ml Vial) 100 mcg STK-MED ONCE .ROUTE ; Start at 12:51; Stop 07/15/18 at 12:52; Status DC Morphine Sulfate 30 ml @ 0 mls/hr CONT PRN PRN IV PER PROTOCOL Last administered on 07/16/18at 19:50; Start 07/15/18 at 13:30; Stop 07/17/18 at 09:43 ; Status DC Fentanyl Citrate (Fentanyl 2ml Vial) 100 mcg STK-MED ONCE .ROUTE ; Start at 13:34; Stop 07/15/18 at 13:35; Status DC Throat Lozenges (Chloraseptic) 1 spray PRN Q3HRS PRN PO SORE THROAT Last administered on 07/24/18at 12:09; Start 07/15/18 at 21:45 Sodium Chloride 1,000 ml @ 1,000 mls/hr 1X ONCE IV Last administered on at 03:45; Start 07/16/18 at 03:45; Stop 07/16/18 at 04:44; Status DC Sodium Chloride 1,000 ml @ 125 mls/hr 1X ONCE IV ; Start 07/16/18 at 04:45; Stop 07/16/18 at 12:44; Status Cancel Sodium Chloride 1,000 ml @ 125 mls/hr Q8H IV Last administered on 07/20/18at 10 :04; Start 07/16/18 at 05:00; Stop 07/20/18 at 14:15; Status DC Enoxaparin Sodium (Lovenox 40mg Syringe) 40 mg Q24H SQ Last administered on at 13:42; Start 07/16/18 at 10:00; Stop 07/19/18 at 14:34; Status DC Albuterol/ Ipratropium (Duoneb) 3 ml RTQID NEB Last administered on 07/25/18at 20:00; Start 07/16/18 at 12:00 Albuterol Sulfate (Ventolin Neb Soln) 2.5 mg PRN Q4HRS PRN NEB SHORTNESS OF BREATH Last administered on 07/24/18at 04:22; Start 07/16/18 at 11:45 Al Hydroxide/Mg Hydroxide (Mylanta Plus Xs) 30 ml PRN Q2HR PRN PO HEARTBURN / GAS; Start 07/16/18 at 22:00; Stop 07/16/18 at 22:00; Status DC Famotidine (Pepcid) 20 mg QHS PO ; Start 07/17/18 at 21:00; Stop 07/17/18 at 21: 00; Status DC Famotidine (Pepcid) 20 mg 1X ONCE PO ; Start 07/16/18 at 22:00; Stop 07/16/18 at 22:00; Status DC Famotidine (Pepcid Vial) 20 mg QHS IVP Last administered on 07/17/18at 21:16; Start 07/17/18 at 21:00; Stop 07/18/18 at 08:21; Status DC Famotidine (Pepcid Vial) 20 mg 1X ONCE IVP Last administered on 07/16/18at 22: 38; Start 07/16/18 at 22:30; Stop 07/16/18 at 22:31; Status DC Iron Sucrose 200 mg/Sodium Chloride 110 ml @ 55 mls/hr DAILY IV Last administered on 07/21/18at 10:27; Start 07/17/18 at 12:30; Stop 07/21/18 at 12:29 ; Status DC Calcium Carbonate/ Glycine (Tums) 500 mg PRN AFTMEALHC PRN PO INDIGESTION Last administered on 07/18/18at 16:30; Start 07/17/18 at 21:15 Iohexol (Omnipaque 300 Mg/ml) 75 ml 1X ONCE IV Last administered on 07/18/18at 08:15; Start 07/18/18 at 08:15; Stop 07/18/18 at 08:16; Status DC Info (CONTRAST GIVEN -- Rx MONITORING) 1 each PRN DAILY PRN MC SEE COMMENTS; Start 07/18/18 at 08:15; Stop 07/20/18 at 08:14; Status DC Famotidine (Pepcid Vial) 20 mg BID IVP Last administered on 07/21/18at 07:41; Start 07/18/18 at 09:00; Stop 07/21/18 at 11:57; Status DC Multi-Ingredient Mouthwash/Gargle (Gi Cocktail) 20 ml PRN QID PRN PO CHEST PAIN Last administered on 07/18/18at 13:57; Start 07/18/18 at 12:00; Stop at 13:11; Status DC Enoxaparin Sodium (Lovenox 40mg Syringe) 40 mg Q12HR SQ Last administered on at 08:43; Start 07/19/18 at 21:00 Prochlorperazine Edisylate (Compazine) 10 mg PRN Q6HRS PRN IV NAUSEA/VOMITING, 2ND CHOICE Last administered on 07/21/18at 17:48; Start 07/21/18 at 10:15 Amoxicillin (Amoxil) 1,000 mg BID PO Last administered on 07/21/18at 20:08; Start 07/21/18 at 12:30 Clarithromycin (Biaxin) 500 mg BID PO Last administered on 07/21/18at 20:08; Start 07/21/18 at 12:30 Pantoprazole Sodium (Protonix) 40 mg BIDAC PO Last administered on 07/25/18at 06 :34; Start 07/21/18 at 16:30 Fentanyl Citrate (Fentanyl 2ml Vial) 50 mcg PRN Q2HR PRN IV SEVERE PAIN; Start 07/21/18 at 22:30 Morphine Sulfate (Morphine Sulfate) 2 mg PRN Q2HR PRN IV MODERATE PAIN Last administered on 07/24/18at 12:13; Start 9/24/18 at 22:30 Sodium Chloride 1,000 ml @ 100 mls/hr Q10H IV Last administered on 07/25/18at 18:11; Start 07/21/18 at 22:30 Famotidine (Pepcid Vial) 20 mg BID IVP Last administered on 07/25/18at 08:41; Start 07/22/18 at 21:00; Stop 07/25/18 at 10:46; Status DC Levetiracetam 500 mg/Dextrose 105 ml @ 420 mls/hr Q12HR IV Last administered on 07/25/18at 08:41; Start 07/23/18 at 13:00 Active Scripts Active Oxcarbazepine 300 Mg Tablet 900 Mg PO BID 30 Days Hydrocodone-Apap 5-325 (Hydrocodone Bit/Acetaminophen) 1 Each Tablet 1 Tab PO PRN Q4HRS PRN 14 Days Ondansetron Odt (Ondansetron) 4 Mg Tab.rapdis 4 Mg PO PRN Q6HRS PRN 14 Days Reported Advair 250-50 Diskus (Fluticasone/Salmeterol) 1 Each Disk.w.dev 1 Puff IH BID Proair Hfa Inhaler (Albuterol Sulfate) 8.5 Gm Hfa.aer.ad 1 Puff INH PRN Q6HRS PRN Miralax (Polyethylene Glycol 3350) 17 Gm Powd.pack 1 Packet PO BID Zyrtec (Cetirizine Hcl) 10 Mg Tablet 1 Tab PO DAILY Atorvastatin Calcium 20 Mg Tablet 20 Mg PO HS Topiramate 100 Mg Tablet 1 Tab PO BID Lisinopril-Hctz 10-12.5 Mg Tab (Lisinopril/Hydrochlorothiazide) 1 Each Tablet 1 Tab PO DAILY Vitals/I & O Vital Sign - Last 24 Hours 07/24/18 07/25/18 07/25/18 07/25/18 22:39 03:00 07:00 07:22 Temp 98.7 98.1 98.4 98.7 98.1 98.4 Pulse 103 92 88 Resp 16 16 18 B/P (MAP) 146/91 (109) 151/88 (109) 134/96 (109) Pulse Ox 91 98 95 97 O2 Delivery Room Air Room Air Room Air Room Air 07/25/18 07/25/18 07/25/18 07/25/18 08:00 10:46 11:00 15:00 Temp 98.0 98.0 98.0 98.0 Pulse 95 71 Resp 18 18 B/P (MAP) 137/87 (104) 150/95 (113) Pulse Ox 98 98 98 O2 Delivery Room Air Room Air Room Air Room Air 07/25/18 07/25/18 07/25/18 15:29 19:15 20:30 Temp 97.7 97.7 Pulse 95 Resp 18 B/P (MAP) 152/99 (116) Pulse Ox 96 O2 Delivery Room Air Room Air Room Air Intake and Output 07/24/18 07/24/18 07/25/18 15:00 23:00 07:00 Intake Total 105 ml 0 ml 1001 ml Balance 105 ml 0 ml 1001 ml PETRONA COREY MD Jul 25, 2018 20:56
[2018-07-25] MEDS: ATORVASTATIN CALCIUM 20 MG TABLET PO SCH (21:38)
[2018-07-25 23:07] VITALS: BP 147/92
[2018-07-26] MEDS: ACETAMINOPHEN 500 MG TABLET PO PRN ×2 (02:41→13:11)
[2018-07-26] MEDS: IV NORMAL SALINE 1000ML BAG 1,000 ML IV SCH ×2 (02:48→05:48)
[2018-07-26] MEDS: ALBUTEROL SULFATE 2.5 MG/3 ML NEBU. NEB PRN (03:00)
[2018-07-26 03:08] VITALS: BP 141/88
[2018-07-26] MEDS: PANTOPRAZOLE 40 MG TABLET.DR. PO SCH ×2 (05:47→17:12)
[2018-07-26 07:00] VITALS: BP 135/93
[2018-07-26] MEDS: IPRATRPIUM/ALBUTEROL 0.5/2.5MG 3 ML NEBU. NEB SCH ×4 (07:33→20:01)
[2018-07-26] MEDS: AMOXICILLIN 250 MG CAPSULE. PO SCH ×2 (08:43→21:53)
[2018-07-26] MEDS: CLARITHROMYCIN 500 MG TABLET. PO SCH ×2 (08:43→21:53)
[2018-07-26] MEDS: POTASSIUM CHLORIDE 20 MEQ TABLET.ER. PO SCH (08:43)
[2018-07-26] MEDS: LISINOPRIL 10 MG TABLET PO SCH (08:45)
[2018-07-26] MEDS: ENOXAPARIN 40 MG/0.4 ML SYRINGE. SQ SCH ×2 (08:46→21:55)
[2018-07-26] MEDS: CETIRIZINE HCL 10 MG TABLET. PO SCH (08:47)
[2018-07-26] MEDS: OXcarbazepine 300 MG TABLET PO SCH ×2 (08:47→21:54)
[2018-07-26] MEDS: TOPIRAMATE 25 MG TABLET. PO SCH ×2 (08:48→21:53)
[2018-07-26] MEDS: POLYETHYLENE GLYCOL 3350 17 GM PACKET. PO SCH ×2 (08:48→21:00)
[2018-07-26 09:04] LABS: BASO % 0 % (0-3); EOS # 0.2 x10^3/uL (0.0-0.7); EOS % 3 % (0-3); HEMATOCRIT 32.7 % (36.0-47.0); HEMOGLOBIN 10.9 g/dL (12.0-15.5); LYMPH # 1.1 x10^3/uL (1.0-4.8); LYMPH % 16 % (24-48); MEAN CORPUSCULAR HEMOGLOBIN 27 pg (25-35); MEAN CORPUSCULAR HGB CONC 33 g/dL (31-37); MEAN CORPUSCULAR VOLUME 82 fL (79-100); MONO # 0.4 x10^3/uL (0.0-1.1); MONO % 5 % (0-9); NEUT # 5.2 x10^3uL (1.8-7.7); NEUT % 76 % (31-73); PLATELET COUNT 250 x10^3/uL (140-400); RED CELL DISTRIBUTION WIDTH 20.7 % (11.5-14.5)
[2018-07-26 09:14] LABS: ALBUMIN 2.9 g/dL (3.4-5.0); ALBUMIN/GLOBULIN RATIO 0.7 (1.0-1.7); CALCIUM 8.9 mg/dL (8.5-10.1); CREATININE 0.7 mg/dL (0.6-1.0); GFR 109.5; TOTAL BILIRUBIN 0.3 mg/dL (0.2-1.0); TOTAL PROTEIN 6.8 g/dL (6.4-8.2)
[2018-07-26 11:00] VITALS: BP 139/93
--- NOTE | 2018-07-26 12:08 | PDOC ---
ISAAC COLE POLICY DIRECTOR 07/26/18 1208: SURGICAL PROGRESS NOTE Subjective tolerating clears no n/v no pain Vital Signs Vital Signs Date Time Temp Pulse Resp B/P (MAP) Pulse Ox O2 Delivery O2 Flow Rate FiO2 07/26/18 11:28 98 Room Air 07/26/18 08:45 101 135/93 07/26/18 07:00 96.3 16 96.3 I&O Intake and Output 07/26/18 07:00 Intake Total 3493 ml Output Total 3 ml Balance 3490 ml Intake Oral 600 ml IV Total 2893 ml Stool Total 3 ml # Voids 5 # Bowel Movements 1 General: Alert, Oriented X3, Cooperative, No acute distress Abdomen: Soft, Other (ND) Labs Laboratory Tests Test 07/25/18 06:35 07/26/18 08:25 White Blood Count 9.5 x10^3/uL (4.0-11.0) 7.0 x10^3/uL (4.0-11.0) Red Blood Count 3.53 x10^6/uL (3.50-5.40) 4.00 x10^6/uL (3.50-5.40) Hemoglobin 9.6 g/dL (12.0-15.5) 10.9 g/dL (12.0-15.5) Hematocrit 28.8 % (36.0-47.0) 32.7 % (36.0-47.0) Mean Corpuscular Volume 82 fL (79-100) 82 fL (79-100) Mean Corpuscular Hemoglobin 27 pg (25-35) 27 pg (25-35) Mean Corpuscular Hemoglobin Concent 33 g/dL (31-37) 33 g/dL (31-37) Red Cell Distribution Width 19.6 % (11.5-14.5) 20.7 % (11.5-14.5) Platelet Count 244 x10^3/uL (140-400) 250 x10^3/uL (140-400) Neutrophils (%) (Auto) 77 % (31-73) 76 % (31-73) Lymphocytes (%) (Auto) 14 % (24-48) 16 % (24-48) Monocytes (%) (Auto) 7 % (0-9) 5 % (0-9) Eosinophils (%) (Auto) 2 % (0-3) 3 % (0-3) Basophils (%) (Auto) 0 % (0-3) 0 % (0-3) Neutrophils # (Auto) 7.3 x10^3uL (1.8-7.7) 5.2 x10^3uL (1.8-7.7) Lymphocytes # (Auto) 1.3 x10^3/uL (1.0-4.8) 1.1 x10^3/uL (1.0-4.8) Monocytes # (Auto) 0.7 x10^3/uL (0.0-1.1) 0.4 x10^3/uL (0.0-1.1) Eosinophils # (Auto) 0.2 x10^3/uL (0.0-0.7) 0.2 x10^3/uL (0.0-0.7) Basophils # (Auto) 0.0 x10^3/uL (0.0-0.2) 0.0 x10^3/uL (0.0-0.2) Sodium Level 142 mmol/L (136-145) 142 mmol/L (136-145) Potassium Level 3.5 mmol/L (3.5-5.1) 3.0 mmol/L (3.5-5.1) Chloride Level 110 mmol/L (98-107) 108 mmol/L (98-107) Carbon Dioxide Level 18 mmol/L (21-32) 17 mmol/L (21-32) Anion Gap 14 (6-14) 17 (6-14) Blood Urea Nitrogen 6 mg/dL (7-20) 6 mg/dL (7-20) Creatinine 0.6 mg/dL (0.6-1.0) 0.7 mg/dL (0.6-1.0) Estimated GFR (Cockcroft-Gault) 130.8 109.5 BUN/Creatinine Ratio 10 (6-20) 9 (6-20) Glucose Level 74 mg/dL (70-99) 75 mg/dL (70-99) Calcium Level 8.8 mg/dL (8.5-10.1) 8.9 mg/dL (8.5-10.1) Total Bilirubin 0.3 mg/dL (0.2-1.0) 0.3 mg/dL (0.2-1.0) Aspartate Amino Transf (AST/SGOT) 47 U/L (15-37) 36 U/L (15-37) Alanine Aminotransferase (ALT/SGPT) 88 U/L (14-59) 87 U/L (14-59) Alkaline Phosphatase 83 U/L (46-116) 98 U/L (46-116) Total Protein 6.2 g/dL (6.4-8.2) 6.8 g/dL (6.4-8.2) Albumin 2.6 g/dL (3.4-5.0) 2.9 g/dL (3.4-5.0) Albumin/Globulin Ratio 0.7 (1.0-1.7) 0.7 (1.0-1.7) Laboratory Tests Test 07/26/18 08:25 White Blood Count 7.0 x10^3/uL (4.0-11.0) Red Blood Count 4.00 x10^6/uL (3.50-5.40) Hemoglobin 10.9 g/dL (12.0-15.5) Hematocrit 32.7 % (36.0-47.0) Mean Corpuscular Volume 82 fL (79-100) Mean Corpuscular Hemoglobin 27 pg (25-35) Mean Corpuscular Hemoglobin Concent 33 g/dL (31-37) Red Cell Distribution Width 20.7 % (11.5-14.5) Platelet Count 250 x10^3/uL (140-400) Neutrophils (%) (Auto) 76 % (31-73) Lymphocytes (%) (Auto) 16 % (24-48) Monocytes (%) (Auto) 5 % (0-9) Eosinophils (%) (Auto) 3 % (0-3) Basophils (%) (Auto) 0 % (0-3) Neutrophils # (Auto) 5.2 x10^3uL (1.8-7.7) Lymphocytes # (Auto) 1.1 x10^3/uL (1.0-4.8) Monocytes # (Auto) 0.4 x10^3/uL (0.0-1.1) Eosinophils # (Auto) 0.2 x10^3/uL (0.0-0.7) Basophils # (Auto) 0.0 x10^3/uL (0.0-0.2) Sodium Level 142 mmol/L (136-145) Potassium Level 3.0 mmol/L (3.5-5.1) Chloride Level 108 mmol/L (98-107) Carbon Dioxide Level 17 mmol/L (21-32) Anion Gap 17 (6-14) Blood Urea Nitrogen 6 mg/dL (7-20) Creatinine 0.7 mg/dL (0.6-1.0) Estimated GFR (Cockcroft-Gault) 109.5 BUN/Creatinine Ratio 9 (6-20) Glucose Level 75 mg/dL (70-99) Calcium Level 8.9 mg/dL (8.5-10.1) Total Bilirubin 0.3 mg/dL (0.2-1.0) Aspartate Amino Transf (AST/SGOT) 36 U/L (15-37) Alanine Aminotransferase (ALT/SGPT) 87 U/L (14-59) Alkaline Phosphatase 98 U/L (46-116) Total Protein 6.8 g/dL (6.4-8.2) Albumin 2.9 g/dL (3.4-5.0) Albumin/Globulin Ratio 0.7 (1.0-1.7) Problem List Problems Medical Problems: (1) Abdominal pain Status: Acute (2) Bandemia Status: Acute (3) Leukocytosis Status: Acute (4) Nausea vomiting and diarrhea Status: Acute (5) UTI (urinary tract infection) Status: Acute Assessment/Plan advance diet LIGIA ALONSO MD 07/26/18 1518: SURGICAL PROGRESS NOTE Assessment/Plan pt seen agree with above ISAAC COLE POLICY DIRECTOR Jul 26, 2018 12:08 LIGIA ALONSO MD Jul 26, 2018 15:18
[2018-07-26 15:00] VITALS: BP 135/85
[2018-07-26 19:00] VITALS: BP 149/89
[2018-07-26] MEDS: ATORVASTATIN CALCIUM 20 MG TABLET PO SCH (21:54)
--- NOTE | 2018-07-26 22:34 | PDOC ---
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 Nonobstructing left intrarenal calculi. Enlarged fibroid uterus. Probable renal cysts. asthma HTN morbid obesity h/o seizure AMS at hosp, with [employer] likely gastric bx + h pylori plan: ice chips --> ADAT NGT out dc hctz, monitor bp, lisinopril dvt ppx add duoneb, albuterol prn cont seizure meds, neuro consulted for AMS dc abx onco consulted, garsia CT for staging, h pylori treatment defer to GI talked to pt about the path plans to f/u with [facility] for eval/chemo pt to f/u at [facility] History of Present Illness History of Present Illness Out having surgery for colon mass which is a new diagnosis- dx after EGD colonoscopy this admission Vitals Vitals Vital Signs Date Time Temp Pulse Resp B/P (MAP) Pulse Ox O2 Delivery O2 Flow Rate FiO2 07/26/18 20:30 Room Air 07/26/18 19:57 98 07/26/18 19:00 98.4 90 18 149/89 (109) 98.4 Physical Exam General: Alert, Oriented X3, Cooperative, No acute distress Heart: Regular rate, Normal S1, Normal S2, No murmurs Lungs: Clear Abdomen: Soft, Other (ND) Extremities: No clubbing, No cyanosis, Normal pulses Skin: No rashes, No breakdown Labs LABS Laboratory Tests Test 07/26/18 08:25 White Blood Count 7.0 x10^3/uL (4.0-11.0) Red Blood Count 4.00 x10^6/uL (3.50-5.40) Hemoglobin 10.9 g/dL (12.0-15.5) Hematocrit 32.7 % (36.0-47.0) Mean Corpuscular Volume 82 fL (79-100) Mean Corpuscular Hemoglobin 27 pg (25-35) Mean Corpuscular Hemoglobin Concent 33 g/dL (31-37) Red Cell Distribution Width 20.7 % (11.5-14.5) Platelet Count 250 x10^3/uL (140-400) Neutrophils (%) (Auto) 76 % (31-73) Lymphocytes (%) (Auto) 16 % (24-48) Monocytes (%) (Auto) 5 % (0-9) Eosinophils (%) (Auto) 3 % (0-3) Basophils (%) (Auto) 0 % (0-3) Neutrophils # (Auto) 5.2 x10^3uL (1.8-7.7) Lymphocytes # (Auto) 1.1 x10^3/uL (1.0-4.8) Monocytes # (Auto) 0.4 x10^3/uL (0.0-1.1) Eosinophils # (Auto) 0.2 x10^3/uL (0.0-0.7) Basophils # (Auto) 0.0 x10^3/uL (0.0-0.2) Sodium Level 142 mmol/L (136-145) Potassium Level 3.0 mmol/L (3.5-5.1) Chloride Level 108 mmol/L (98-107) Carbon Dioxide Level 17 mmol/L (21-32) Anion Gap 17 (6-14) Blood Urea Nitrogen 6 mg/dL (7-20) Creatinine 0.7 mg/dL (0.6-1.0) Estimated GFR (Cockcroft-Gault) 109.5 BUN/Creatinine Ratio 9 (6-20) Glucose Level 75 mg/dL (70-99) Calcium Level 8.9 mg/dL (8.5-10.1) Total Bilirubin 0.3 mg/dL (0.2-1.0) Aspartate Amino Transf (AST/SGOT) 36 U/L (15-37) Alanine Aminotransferase (ALT/SGPT) 87 U/L (14-59) Alkaline Phosphatase 98 U/L (46-116) Total Protein 6.8 g/dL (6.4-8.2) Albumin 2.9 g/dL (3.4-5.0) Albumin/Globulin Ratio 0.7 (1.0-1.7) Assessment and Plan Assessmemt and Plan Problems Medical Problems: (1) Abdominal pain Status: Acute (2) Bandemia Status: Acute (3) Leukocytosis Status: Acute (4) Nausea vomiting and diarrhea Status: Acute (5) UTI (urinary tract infection) Status: Acute Comment Review of Relevant I have reviewed the following items dawson (where applicable) has been applied. Labs Laboratory Tests Test 07/25/18 06:35 9/29/18 08:25 White Blood Count 9.5 x10^3/uL (4.0-11.0) 7.0 x10^3/uL (4.0-11.0) Red Blood Count 3.53 x10^6/uL (3.50-5.40) 4.00 x10^6/uL (3.50-5.40) Hemoglobin 9.6 g/dL (12.0-15.5) 10.9 g/dL (12.0-15.5) Hematocrit 28.8 % (36.0-47.0) 32.7 % (36.0-47.0) Mean Corpuscular Volume 82 fL (79-100) 82 fL (79-100) Mean Corpuscular Hemoglobin 27 pg (25-35) 27 pg (25-35) Mean Corpuscular Hemoglobin Concent 33 g/dL (31-37) 33 g/dL (31-37) Red Cell Distribution Width 19.6 % (11.5-14.5) 20.7 % (11.5-14.5) Platelet Count 244 x10^3/uL (140-400) 250 x10^3/uL (140-400) Neutrophils (%) (Auto) 77 % (31-73) 76 % (31-73) Lymphocytes (%) (Auto) 14 % (24-48) 16 % (24-48) Monocytes (%) (Auto) 7 % (0-9) 5 % (0-9) Eosinophils (%) (Auto) 2 % (0-3) 3 % (0-3) Basophils (%) (Auto) 0 % (0-3) 0 % (0-3) Neutrophils # (Auto) 7.3 x10^3uL (1.8-7.7) 5.2 x10^3uL (1.8-7.7) Lymphocytes # (Auto) 1.3 x10^3/uL (1.0-4.8) 1.1 x10^3/uL (1.0-4.8) Monocytes # (Auto) 0.7 x10^3/uL (0.0-1.1) 0.4 x10^3/uL (0.0-1.1) Eosinophils # (Auto) 0.2 x10^3/uL (0.0-0.7) 0.2 x10^3/uL (0.0-0.7) Basophils # (Auto) 0.0 x10^3/uL (0.0-0.2) 0.0 x10^3/uL (0.0-0.2) Sodium Level 142 mmol/L (136-145) 142 mmol/L (136-145) Potassium Level 3.5 mmol/L (3.5-5.1) 3.0 mmol/L (3.5-5.1) Chloride Level 110 mmol/L (98-107) 108 mmol/L (98-107) Carbon Dioxide Level 18 mmol/L (21-32) 17 mmol/L (21-32) Anion Gap 14 (6-14) 17 (6-14) Blood Urea Nitrogen 6 mg/dL (7-20) 6 mg/dL (7-20) Creatinine 0.6 mg/dL (0.6-1.0) 0.7 mg/dL (0.6-1.0) Estimated GFR (Cockcroft-Gault) 130.8 109.5 BUN/Creatinine Ratio 10 (6-20) 9 (6-20) Glucose Level 74 mg/dL (70-99) 75 mg/dL (70-99) Calcium Level 8.8 mg/dL (8.5-10.1) 8.9 mg/dL (8.5-10.1) Total Bilirubin 0.3 mg/dL (0.2-1.0) 0.3 mg/dL (0.2-1.0) Aspartate Amino Transf (AST/SGOT) 47 U/L (15-37) 36 U/L (15-37) Alanine Aminotransferase (ALT/SGPT) 88 U/L (14-59) 87 U/L (14-59) Alkaline Phosphatase 83 U/L (46-116) 98 U/L (46-116) Total Protein 6.2 g/dL (6.4-8.2) 6.8 g/dL (6.4-8.2) Albumin 2.6 g/dL (3.4-5.0) 2.9 g/dL (3.4-5.0) Albumin/Globulin Ratio 0.7 (1.0-1.7) 0.7 (1.0-1.7) Laboratory Tests Test 07/26/18 08:25 White Blood Count 7.0 x10^3/uL (4.0-11.0) Red Blood Count 4.00 x10^6/uL (3.50-5.40) Hemoglobin 10.9 g/dL (12.0-15.5) Hematocrit 32.7 % (36.0-47.0) Mean Corpuscular Volume 82 fL (79-100) Mean Corpuscular Hemoglobin 27 pg (25-35) Mean Corpuscular Hemoglobin Concent 33 g/dL (31-37) Red Cell Distribution Width 20.7 % (11.5-14.5) Platelet Count 250 x10^3/uL (140-400) Neutrophils (%) (Auto) 76 % (31-73) Lymphocytes (%) (Auto) 16 % (24-48) Monocytes (%) (Auto) 5 % (0-9) Eosinophils (%) (Auto) 3 % (0-3) Basophils (%) (Auto) 0 % (0-3) Neutrophils # (Auto) 5.2 x10^3uL (1.8-7.7) Lymphocytes # (Auto) 1.1 x10^3/uL (1.0-4.8) Monocytes # (Auto) 0.4 x10^3/uL (0.0-1.1) Eosinophils # (Auto) 0.2 x10^3/uL (0.0-0.7) Basophils # (Auto) 0.0 x10^3/uL (0.0-0.2) Sodium Level 142 mmol/L (136-145) Potassium Level 3.0 mmol/L (3.5-5.1) Chloride Level 108 mmol/L (98-107) Carbon Dioxide Level 17 mmol/L (21-32) Anion Gap 17 (6-14) Blood Urea Nitrogen 6 mg/dL (7-20) Creatinine 0.7 mg/dL (0.6-1.0) Estimated GFR (Cockcroft-Gault) 109.5 BUN/Creatinine Ratio 9 (6-20) Glucose Level 75 mg/dL (70-99) Calcium Level 8.9 mg/dL (8.5-10.1) Total Bilirubin 0.3 mg/dL (0.2-1.0) Aspartate Amino Transf (AST/SGOT) 36 U/L (15-37) Alanine Aminotransferase (ALT/SGPT) 87 U/L (14-59) Alkaline Phosphatase 98 U/L (46-116) Total Protein 6.8 g/dL (6.4-8.2) Albumin 2.9 g/dL (3.4-5.0) Albumin/Globulin Ratio 0.7 (1.0-1.7) Microbiology 07/20/18 Urine Culture - Final, Complete 07/20/18 Urine Culture Result 1 (SHEBA) - Final, Complete Medications Current Medications Sodium Chloride 1,000 ml @ 1,000 mls/hr 1X ONCE IV Last administered on at 09:37; Start 07/12/18 at 09:15; Stop 07/12/18 at 10:14; Status DC Ondansetron HCl (Zofran) 4 mg 1X ONCE IV Last administered on 07/12/18at 09:43 ; Start 07/12/18 at 09:15; Stop 07/12/18 at 09:16; Status DC Dicyclomine HCl (Bentyl) 20 mg 1X ONCE IM Last administered on 07/12/18at 10:44 ; Start 07/12/18 at 09:15; Stop 07/12/18 at 09:16; Status DC Iohexol (Omnipaque 300 Mg/ml) 75 ml 1X ONCE IV Last administered on 07/12/18at 10:30; Start 07/12/18 at 10:30; Stop 07/12/18 at 10:32; Status DC Info (CONTRAST GIVEN -- Rx MONITORING) 1 each PRN DAILY PRN MC SEE COMMENTS; Start 07/12/18 at 10:45; Stop 07/14/18 at 10:44; Status DC Metronidazole 100 ml @ 100 mls/hr 1X ONCE IV Last administered on 07/12/18at 13:10; Start 07/12/18 at 12:30; Stop 07/12/18 at 13:29; Status DC Ciprofloxacin/ Dextrose 200 ml @ 200 mls/hr Q12HR IV Last administered on 07/12at 23:00; Start 07/12/18 at 13:30; Stop 07/13/18 at 08:57; Status DC Morphine Sulfate (Morphine Sulfate) 2 mg PRN Q2HR PRN IV SEVERE PAIN Last administered on 07/13/18at 16:10; Start 07/12/18 at 16:00; Stop 07/17/18 at 09:36 ; Status DC Atorvastatin Calcium (Lipitor) 20 mg HS PO Last administered on 07/26/18at 21:54 ; Start 07/12/18 at 21:00 Cetirizine HCl (ZyrTEC) 10 mg DAILY PO Last administered on 07/26/18at 08:47; Start 07/12/18 at 16:00 Lubiprostone (Amitiza) 8 mcg BID PO Last administered on 07/13/18at 08:23; Start 07/12/18 at 21:00; Stop 07/13/18 at 08:49; Status DC Lisinopril (Prinivil) 10 mg DAILY PO Last administered on 07/26/18at 08:45; Start 07/13/18 at 09:00 Oxcarbazepine (Trileptal) 300 mg BID PO Last administered on 07/13/18at 08:23; Start 07/12/18 at 21:00; Stop 07/13/18 at 11:19; Status DC Polyethylene Glycol (miraLAX PACKET) 17 gm BID PO Last administered on at 10:32; Start 07/12/18 at 21:00 Topiramate (Topamax) 100 mg BID PO Last administered on 07/26/18at 21:53; Start 07/12/18 at 21:00 Hydrochlorothiazide (Microzide) 12.5 mg DAILY PO Last administered on at 11:44; Start 07/13/18 at 09:00; Stop 07/16/18 at 11:39; Status DC Ketorolac Tromethamine (Toradol 30mg Vial) 30 mg PRN Q6HRS PRN IV MILD - MODERATE PAIN; Start 07/12/18 at 20:00; Stop 07/17/18 at 19:59; Status DC Lactobacillus Rhamnosus (Culturelle) 1 cap BID PO Last administered on at 20:12; Start 07/13/18 at 09:00; Stop 07/22/18 at 16:39; Status DC Ciprofloxacin/ Dextrose 200 ml @ 200 mls/hr Q12H IV Last administered on at 10:49; Start 07/13/18 at 11:00; Stop 07/16/18 at 11:39; Status DC Metronidazole 100 ml @ 100 mls/hr Q8HRS IV Last administered on 07/16/18at 06: 09; Start 07/13/18 at 09:00; Stop 07/16/18 at 11:39; Status DC Potassium Chloride (Klor-Con) 40 meq 1X ONCE PO Last administered on at 09:26; Start 07/13/18 at 08:45; Stop 07/13/18 at 08:52; Status DC Potassium Chloride (Klor-Con) 40 meq DAILYWBKFT PO Last administered on 08:43; Start 07/14/18 at 08:00 Loperamide HCl (Imodium) 2 mg PRN Q15MIN PRN PO DIARRHEA Last administered on 09:40; Start 07/13/18 at 08:45 Ondansetron HCl (Zofran) 4 mg PRN Q6HRS PRN IV NAUSEA/VOMITING, 1ST CHOICE Last administered on 07/21/18 07:41; Start 07/13/18 at 08:45 Ondansetron HCl (Zofran Odt) 4 mg PRN Q6HRS PRN PO NAUSEA/VOMITING Last administered on 07/21/18 16:52; Start 07/13/18 at 08:45 Acetaminophen (Tylenol) 500 mg PRN Q6HRS PRN PO MILD PAIN / TEMP Last administered on 07/26/18at 13:11; Start 07/13/18 at 08:45 Acetaminophen/ Hydrocodone Bitart (Lortab 5/325) 1 tab PRN Q4HRS PRN PO PAIN MODERATE TO SEVERE Last administered on 07/21/18 16:55; Start 07/13/18 at 08:45 Sodium Chloride 1,000 ml @ 100 mls/hr 1X ONCE IV Last administered on at 09:33; Start 07/13/18 at 09:00; Stop 07/13/18 at 18:59; Status DC Oxcarbazepine (Trileptal) 900 mg BID PO Last administered on 07/26/18 21:54; Start 07/13/18 at 21:00 Bisacodyl (Dulcolax Tab) 10 mg 1X ONCE PO Last administered on 07/13/18at 17:07 ; Start 07/13/18 at 17:00; Stop 07/13/18 at 17:01; Status DC Polyethylene Glycol (miraLAX Powder BULK BOTTLE) 238 gm 1X ONCE PO Last administered on 07/13/18at 19:35; Start 07/13/18 at 19:00; Stop 07/13/18 at 19:01 ; Status DC Sodium Chloride (Normal Saline Flush) 3 ml QSHIFT PRN IV AFTER MEDS AND BLOOD DRAWS; Start 07/13/18 at 16:45 Sodium Chloride (Normal Saline Flush) 3 ml QSHIFT PRN IV AFTER MEDS AND BLOOD DRAWS; Start 07/13/18 at 16:45; Status UNV Benzocaine (Hurricaine One) 1 spray STK-MED ONCE .ROUTE ; Start 07/14/18 at 07: 58; Stop 07/14/18 at 07:59; Status DC Midazolam HCl (Versed) 5 mg STK-MED ONCE .ROUTE ; Start 07/14/18 at 07:59; Stop 07/14/18 at 08:00; Status DC Fentanyl Citrate (Fentanyl 2ml Vial) 100 mcg STK-MED ONCE .ROUTE ; Start at 07:59; Stop 07/14/18 at 08:00; Status DC Propofol 40 ml @ As Directed STK-MED ONCE IV ; Start 07/14/18 at 08:34; Stop at 08:35; Status DC Lidocaine HCl (Lidocaine Pf 2% Vial) 5 ml STK-MED ONCE .ROUTE ; Start 07/14/18 at 08:34; Stop 07/14/18 at 08:35; Status DC Cefazolin Sodium/ Dextrose 50 ml @ 100 mls/hr 1X PREOP PRN IV asset protection agent to OR Last administered on 07/15/18at 09:40; Start 07/15/18 at 06:00; Stop 07/15/18 at 18:00; Status DC Metronidazole 100 ml @ 100 mls/hr 1X PREOP PRN IV asset protection agent to OR; Start at 06:00; Stop 07/15/18 at 18:00; Status DC Fentanyl Citrate (Fentanyl 2ml Vial) 25 mcg PRN Q5MIN PRN IV MILD PAIN; Start 07/15/18 at 07:00; Stop 07/15/18 at 21:00; Status DC Fentanyl Citrate (Fentanyl 2ml Vial) 50 mcg PRN Q5MIN PRN IV MODERATE TO SEVERE PAIN Last administered on 07/15/18at 13:55; Start 07/15/18 at 07:00; Stop 07/15/18 at 21:00; Status DC Morphine Sulfate (Morphine Sulfate) 1 mg PRN Q10MIN PRN IV SEVERE PAIN; Start 07/15/18 at 07:00; Stop 07/15/18 at 21:00; Status DC Ringer's Solution 1,000 ml @ 30 mls/hr Q24H IV ; Start 07/15/18 at 07:00; Stop 07/15/18 at 18:59; Status DC Lidocaine HCl (Xylocaine-Mpf 1% 2ml Vial) 2 ml PRN 1X PRN ID IV START; Start at 07:00; Stop 07/15/18 at 21:00; Status DC Hydromorphone HCl (Dilaudid) 0.5 mg PRN Q10MIN PRN IV SEV PAIN, Second choice; Start 07/15/18 at 07:00; Stop 07/15/18 at 21:00; Status DC Prochlorperazine Edisylate (Compazine) 5 mg PACU PRN PRN IV NAUSEA, MRX1; Start 07/15/18 at 07:00; Stop 07/15/18 at 21:00; Status DC Epinephrine HCl (Adrenalin) 30 mg STK-MED ONCE .ROUTE ; Start 07/15/18 at 08:02 ; Stop 07/15/18 at 09:03; Status DC Bupivacaine HCl (Sensorcaine Mpf 0.25%) 30 ml STK-MED ONCE .ROUTE ; Start at 08:02; Stop 07/15/18 at 09:03; Status DC Sevoflurane (Ultane) 90 ml STK-MED ONCE IH ; Start 07/15/18 at 09:12; Stop 07/15 at 09:13; Status DC Midazolam HCl (Versed) 2 mg STK-MED ONCE .ROUTE ; Start 07/15/18 at 09:12; Stop 07/15/18 at 09:13; Status DC Fentanyl Citrate (Fentanyl 2ml Vial) 100 mcg STK-MED ONCE .ROUTE ; Start at 09:12; Stop 07/15/18 at 09:13; Status DC Glycopyrrolate (Robinul) 1 mg STK-MED ONCE .ROUTE ; Start 07/15/18 at 09:13; Stop 07/15/18 at 09:14; Status DC Neostigmine Methylsulfate (Neostigmine Methylsulfate) 5 mg STK-MED ONCE .ROUTE ; Start 07/15/18 at 09:13; Stop 07/15/18 at 09:14; Status DC Rocuronium [place] (Zemuron) 50 mg STK-MED ONCE .ROUTE ; Start 07/15/18 at 09:13 ; Stop 07/15/18 at 09:14; Status DC Dexamethasone Sodium Phosphate (Decadron) 20 mg STK-MED ONCE .ROUTE ; Start at 09:13; Stop 07/15/18 at 09:14; Status DC Ketorolac Tromethamine (Toradol For Or Only) 30 mg STK-MED ONCE INJ ; Start at 09:13; Stop 07/15/18 at 09:14; Status DC Propofol 20 ml @ As Directed STK-MED ONCE IV ; Start 07/15/18 at 09:13; Stop at 09:14; Status DC Ondansetron HCl (Zofran) 4 mg STK-MED ONCE .ROUTE ; Start 07/15/18 at 09:13; Stop 07/15/18 at 09:14; Status DC Phenylephrine HCl (PHENYLEPHRINE in 0.9% NACL PF) 1 mg STK-MED ONCE IV ; Start 07/15/18 at 09:53; Stop 07/15/18 at 09:54; Status DC Fentanyl Citrate (Fentanyl 2ml Vial) 100 mcg STK-MED ONCE .ROUTE ; Start at 10:05; Stop 07/15/18 at 10:06; Status DC Esmolol HCl (Brevibloc) 100 mg STK-MED ONCE IV ; Start 07/15/18 at 10:09; Stop 07/15/18 at 10:10; Status DC Rocuronium [place] (Zemuron) 50 mg STK-MED ONCE .ROUTE ; Start 07/15/18 at 10:10 ; Stop 07/15/18 at 10:11; Status DC Ephedrine Sulfate (ePHEDrine PF IN SALINE SYRINGE) 50 mg STK-MED ONCE IV ; Start 07/15/18 at 11:02; Stop 07/15/18 at 11:03; Status DC Fentanyl Citrate (Fentanyl 2ml Vial) 100 mcg STK-MED ONCE .ROUTE ; Start at 11:09; Stop 07/15/18 at 11:10; Status DC Fentanyl Citrate (Fentanyl 2ml Vial) 100 mcg STK-MED ONCE .ROUTE ; Start at 12:51; Stop 07/15/18 at 12:52; Status DC Morphine Sulfate 30 ml @ 0 mls/hr CONT PRN PRN IV PER PROTOCOL Last administered on 07/16/18at 19:50; Start 07/15/18 at 13:30; Stop 07/17/18 at 09:43 ; Status DC Fentanyl Citrate (Fentanyl 2ml Vial) 100 mcg STK-MED ONCE .ROUTE ; Start at 13:34; Stop 07/15/18 at 13:35; Status DC Throat Lozenges (Chloraseptic) 1 spray PRN Q3HRS PRN PO SORE THROAT Last administered on 07/24/18at 12:09; Start 07/15/18 at 21:45 Sodium Chloride 1,000 ml @ 1,000 mls/hr 1X ONCE IV Last administered on at 03:45; Start 07/16/18 at 03:45; Stop 07/16/18 at 04:44; Status DC Sodium Chloride 1,000 ml @ 125 mls/hr 1X ONCE IV ; Start 07/16/18 at 04:45; Stop 07/16/18 at 12:44; Status Cancel Sodium Chloride 1,000 ml @ 125 mls/hr Q8H IV Last administered on 07/20/18at 10 :04; Start 07/16/18 at 05:00; Stop 07/20/18 at 14:15; Status DC Enoxaparin Sodium (Lovenox 40mg Syringe) 40 mg Q24H SQ Last administered on at 13:42; Start 07/16/18 at 10:00; Stop 07/19/18 at 14:34; Status DC Albuterol/ Ipratropium (Duoneb) 3 ml RTQID NEB Last administered on 07/26/18at 20:01; Start 07/16/18 at 12:00 Albuterol Sulfate (Ventolin Neb Soln) 2.5 mg PRN Q4HRS PRN NEB SHORTNESS OF BREATH Last administered on 07/26/18at 03:00; Start 07/16/18 at 11:45 Al Hydroxide/Mg Hydroxide (Mylanta Plus Xs) 30 ml PRN Q2HR PRN PO HEARTBURN / GAS; Start 07/16/18 at 22:00; Stop 07/16/18 at 22:00; Status DC Famotidine (Pepcid) 20 mg QHS PO ; Start 07/17/18 at 21:00; Stop 07/17/18 at 21: 00; Status DC Famotidine (Pepcid) 20 mg 1X ONCE PO ; Start 07/16/18 at 22:00; Stop 07/16/18 at 22:00; Status DC Famotidine (Pepcid Vial) 20 mg QHS IVP Last administered on 07/17/18at 21:16; Start 07/17/18 at 21:00; Stop 07/18/18 at 08:21; Status DC Famotidine (Pepcid Vial) 20 mg 1X ONCE IVP Last administered on 07/16/18at 22: 38; Start 07/16/18 at 22:30; Stop 07/16/18 at 22:31; Status DC Iron Sucrose 200 mg/Sodium Chloride 110 ml @ 55 mls/hr DAILY IV Last administered on 07/21/18at 10:27; Start 07/17/18 at 12:30; Stop 07/21/18 at 12:29 ; Status DC Calcium Carbonate/ Glycine (Tums) 500 mg PRN AFTMEALHC PRN PO INDIGESTION Last administered on 07/18/18at 16:30; Start 07/17/18 at 21:15 Iohexol (Omnipaque 300 Mg/ml) 75 ml 1X ONCE IV Last administered on 07/18/18at 08:15; Start 07/18/18 at 08:15; Stop 07/18/18 at 08:16; Status DC Info (CONTRAST GIVEN -- Rx MONITORING) 1 each PRN DAILY PRN MC SEE COMMENTS; Start 07/18/18 at 08:15; Stop 07/20/18 at 08:14; Status DC Famotidine (Pepcid Vial) 20 mg BID IVP Last administered on 07/21/18 07:41; Start 07/18/18 at 09:00; Stop 07/21/18 at 11:57; Status DC Multi-Ingredient Mouthwash/Gargle (Gi Cocktail) 20 ml PRN QID PRN PO CHEST PAIN Last administered on 07/18/18at 13:57; Start 07/18/18 at 12:00; Stop at 13:11; Status DC Enoxaparin Sodium (Lovenox 40mg Syringe) 40 mg Q12HR SQ Last administered on 21:55; Start 07/19/18 at 21:00 Prochlorperazine Edisylate (Compazine) 10 mg PRN Q6HRS PRN IV NAUSEA/VOMITING, 2ND CHOICE Last administered on 07/21/18 17:48; Start 07/21/18 at 10:15 Amoxicillin (Amoxil) 1,000 mg BID PO Last administered on 07/26/18 21:53; Start 07/21/18 at 12:30 Clarithromycin (Biaxin) 500 mg BID PO Last administered on 07/26/18 21:53; Start 07/21/18 at 12:30 Pantoprazole Sodium (Protonix) 40 mg BIDAC PO Last administered on 07/26/18 17 :12; Start 07/21/18 at 16:30 Fentanyl Citrate (Fentanyl 2ml Vial) 50 mcg PRN Q2HR PRN IV SEVERE PAIN; Start 07/21/18 at 22:30 Morphine Sulfate (Morphine Sulfate) 2 mg PRN Q2HR PRN IV MODERATE PAIN Last administered on 07/24/18at 12:13; Start 07/21/18 at 22:30 Sodium Chloride 1,000 ml @ 100 mls/hr Q10H IV Last administered on 07/26/18 05:48; Start 07/21/18 at 22:30 Famotidine (Pepcid Vial) 20 mg BID IVP Last administered on 07/25/18 08:41; Start 07/22/18 at 21:00; Stop 07/25/18 at 10:46; Status DC Levetiracetam 500 mg/Dextrose 105 ml @ 420 mls/hr Q12HR IV Last administered on 9/28/18at 08:41; Start 07/23/18 at 13:00; Stop 07/25/18 at 21:58; Status DC Active Scripts Active Oxcarbazepine 300 Mg Tablet 900 Mg PO BID 30 Days Hydrocodone-Apap 5-325 (Hydrocodone Bit/Acetaminophen) 1 Each Tablet 1 Tab PO PRN Q4HRS PRN 14 Days Ondansetron Odt (Ondansetron) 4 Mg Tab.rapdis 4 Mg PO PRN Q6HRS PRN 14 Days Reported Advair 250-50 Diskus (Fluticasone/Salmeterol) 1 Each Disk.w.dev 1 Puff IH BID Proair Hfa Inhaler (Albuterol Sulfate) 8.5 Gm Hfa.aer.ad 1 Puff INH PRN Q6HRS PRN Miralax (Polyethylene Glycol 3350) 17 Gm Powd.pack 1 Packet PO BID Zyrtec (Cetirizine Hcl) 10 Mg Tablet 1 Tab PO DAILY Atorvastatin Calcium 20 Mg Tablet 20 Mg PO HS Topiramate 100 Mg Tablet 1 Tab PO BID Lisinopril-Hctz 10-12.5 Mg Tab (Lisinopril/Hydrochlorothiazide) 1 Each Tablet 1 Tab PO DAILY Vitals/I & O Vital Sign - Last 24 Hours 07/25/18 07/26/18 07/26/18 07/26/18 23:07 03:00 03:08 07:00 Temp 98.0 98.8 96.3 98.0 98.8 96.3 Pulse 84 84 101 Resp 18 18 16 B/P (MAP) 147/92 (110) 141/88 (105) 135/93 (107) Pulse Ox 96 97 99 O2 Delivery Room Air Room Air Room Air Room Air 07/26/18 07/26/18 07/26/18 07/26/18 07:33 08:00 08:45 11:00 Temp 98.2 98.2 Pulse 101 78 Resp 16 B/P (MAP) 135/93 139/93 (108) Pulse Ox 99 O2 Delivery Room Air Room Air Room Air 07/26/18 07/26/18 07/26/18 07/26/18 11:28 15:00 15:29 19:00 Temp 92.4 98.4 92.4 98.4 Pulse 83 90 Resp 16 18 B/P (MAP) 135/85 (102) 149/89 (109) Pulse Ox 98 99 98 96 O2 Delivery Room Air Room Air Room Air Room Air 07/26/18 07/26/18 19:57 20:30 Pulse Ox 98 O2 Delivery Room Air Room Air Intake and Output 07/25/18 07/25/18 07/26/18 15:00 23:00 07:00 Intake Total 105 ml 2178 ml 1210 ml Output Total 3 ml Balance 105 ml 2175 ml 1210 ml PETRONA COREY MD Jul 26, 2018 22:34
[2018-07-26 23:00] VITALS: BP 139/89
[2018-07-27 03:00] VITALS: BP 148/97
[2018-07-27] MEDS: IV NORMAL SALINE 1000ML BAG 1,000 ML IV SCH ×2 (05:16→09:11)
[2018-07-27] MEDS: IPRATRPIUM/ALBUTEROL 0.5/2.5MG 3 ML NEBU. NEB SCH ×4 (05:59→19:42)
[2018-07-27 07:00] VITALS: BP 126/95
[2018-07-27 07:12] LABS: BASO % 0 % (0-3); EOS # 0.2 x10^3/uL (0.0-0.7); EOS % 4 % (0-3); HEMATOCRIT 29.1 % (36.0-47.0); HEMOGLOBIN 9.7 g/dL (12.0-15.5); LYMPH # 1.1 x10^3/uL (1.0-4.8); LYMPH % 17 % (24-48); MEAN CORPUSCULAR HEMOGLOBIN 27 pg (25-35); MEAN CORPUSCULAR HGB CONC 33 g/dL (31-37); MEAN CORPUSCULAR VOLUME 81 fL (79-100); MONO # 0.4 x10^3/uL (0.0-1.1); MONO % 7 % (0-9); NEUT # 4.3 x10^3uL (1.8-7.7); NEUT % 71 % (31-73); PLATELET COUNT 239 x10^3/uL (140-400); RED BLOOD COUNT 3.59 x10^6/uL (3.50-5.40); WHITE BLOOD COUNT 6.1 x10^3/uL (4.0-11.0)
[2018-07-27 07:24] LABS: ALBUMIN 2.6 g/dL (3.4-5.0); ALBUMIN/GLOBULIN RATIO 0.7 (1.0-1.7); CREATININE 0.8 mg/dL (0.6-1.0); GFR 93.9; POTASSIUM 3.4 mmol/L (3.5-5.1); TOTAL BILIRUBIN 0.2 mg/dL (0.2-1.0); TOTAL PROTEIN 6.2 g/dL (6.4-8.2)
[2018-07-27] MEDS: PANTOPRAZOLE 40 MG TABLET.DR. PO SCH ×2 (08:00→16:26)
[2018-07-27] MEDS: CLARITHROMYCIN 500 MG TABLET. PO SCH ×2 (08:01→21:20)
[2018-07-27] MEDS: POTASSIUM CHLORIDE 20 MEQ TABLET.ER. PO SCH (08:01)
[2018-07-27] MEDS: AMOXICILLIN 250 MG CAPSULE. PO SCH ×2 (08:01→21:20)
[2018-07-27] MEDS: POLYETHYLENE GLYCOL 3350 17 GM PACKET. PO SCH ×2 (08:02→21:00)
[2018-07-27] MEDS: LISINOPRIL 10 MG TABLET PO SCH (08:04)
[2018-07-27] MEDS: TOPIRAMATE 25 MG TABLET. PO SCH ×2 (08:05→21:20)
[2018-07-27] MEDS: OXcarbazepine 300 MG TABLET PO SCH ×2 (08:05→21:20)
[2018-07-27] MEDS: ENOXAPARIN 40 MG/0.4 ML SYRINGE. SQ SCH ×2 (08:06→21:20)
[2018-07-27] MEDS: CETIRIZINE HCL 10 MG TABLET. PO SCH (08:06)
[2018-07-27 11:00] VITALS: BP 133/94
--- NOTE | 2018-07-27 12:02 | PDOC ---
ISAAC COLE [employer] 07/27/18 1202: SURGICAL PROGRESS NOTE Subjective tolerating diet having stools Vital Signs Vital Signs Date Time Temp Pulse Resp B/P (MAP) Pulse Ox O2 Delivery O2 Flow Rate FiO2 07/27/18 11:36 Nasal Cannula 2.0 07/27/18 08:04 74 126/95 07/27/18 07:00 98.1 16 98 98.1 I&O Intake and Output 07/27/18 07:00 Intake Total 400 ml Balance 400 ml Intake Oral 400 ml # Voids 3 # Bowel Movements 3 General: Alert, Oriented X3, Cooperative, No acute distress Abdomen: Soft, No tenderness Labs Laboratory Tests Test 07/26/18 08:25 07/27/18 06:45 White Blood Count 7.0 x10^3/uL (4.0-11.0) 6.1 x10^3/uL (4.0-11.0) Red Blood Count 4.00 x10^6/uL (3.50-5.40) 3.59 x10^6/uL (3.50-5.40) Hemoglobin 10.9 g/dL (12.0-15.5) 9.7 g/dL (12.0-15.5) Hematocrit 32.7 % (36.0-47.0) 29.1 % (36.0-47.0) Mean Corpuscular Volume 82 fL (79-100) 81 fL (79-100) Mean Corpuscular Hemoglobin 27 pg (25-35) 27 pg (25-35) Mean Corpuscular Hemoglobin Concent 33 g/dL (31-37) 33 g/dL (31-37) Red Cell Distribution Width 20.7 % (11.5-14.5) 21.0 % (11.5-14.5) Platelet Count 250 x10^3/uL (140-400) 239 x10^3/uL (140-400) Neutrophils (%) (Auto) 76 % (31-73) 71 % (31-73) Lymphocytes (%) (Auto) 16 % (24-48) 17 % (24-48) Monocytes (%) (Auto) 5 % (0-9) 7 % (0-9) Eosinophils (%) (Auto) 3 % (0-3) 4 % (0-3) Basophils (%) (Auto) 0 % (0-3) 0 % (0-3) Neutrophils # (Auto) 5.2 x10^3uL (1.8-7.7) 4.3 x10^3uL (1.8-7.7) Lymphocytes # (Auto) 1.1 x10^3/uL (1.0-4.8) 1.1 x10^3/uL (1.0-4.8) Monocytes # (Auto) 0.4 x10^3/uL (0.0-1.1) 0.4 x10^3/uL (0.0-1.1) Eosinophils # (Auto) 0.2 x10^3/uL (0.0-0.7) 0.2 x10^3/uL (0.0-0.7) Basophils # (Auto) 0.0 x10^3/uL (0.0-0.2) 0.0 x10^3/uL (0.0-0.2) Sodium Level 142 mmol/L (136-145) 143 mmol/L (136-145) Potassium Level 3.0 mmol/L (3.5-5.1) 3.4 mmol/L (3.5-5.1) Chloride Level 108 mmol/L (98-107) 110 mmol/L (98-107) Carbon Dioxide Level 17 mmol/L (21-32) 19 mmol/L (21-32) Anion Gap 17 (6-14) 14 (6-14) Blood Urea Nitrogen 6 mg/dL (7-20) 4 mg/dL (7-20) Creatinine 0.7 mg/dL (0.6-1.0) 0.8 mg/dL (0.6-1.0) Estimated GFR (Cockcroft-Gault) 109.5 93.9 BUN/Creatinine Ratio 9 (6-20) 5 (6-20) Glucose Level 75 mg/dL (70-99) 90 mg/dL (70-99) Calcium Level 8.9 mg/dL (8.5-10.1) 9.0 mg/dL (8.5-10.1) Total Bilirubin 0.3 mg/dL (0.2-1.0) 0.2 mg/dL (0.2-1.0) Aspartate Amino Transf (AST/SGOT) 36 U/L (15-37) 25 U/L (15-37) Alanine Aminotransferase (ALT/SGPT) 87 U/L (14-59) 67 U/L (14-59) Alkaline Phosphatase 98 U/L (46-116) 83 U/L (46-116) Total Protein 6.8 g/dL (6.4-8.2) 6.2 g/dL (6.4-8.2) Albumin 2.9 g/dL (3.4-5.0) 2.6 g/dL (3.4-5.0) Albumin/Globulin Ratio 0.7 (1.0-1.7) 0.7 (1.0-1.7) Laboratory Tests Test 07/27/18 06:45 White Blood Count 6.1 x10^3/uL (4.0-11.0) Red Blood Count 3.59 x10^6/uL (3.50-5.40) Hemoglobin 9.7 g/dL (12.0-15.5) Hematocrit 29.1 % (36.0-47.0) Mean Corpuscular Volume 81 fL (79-100) Mean Corpuscular Hemoglobin 27 pg (25-35) Mean Corpuscular Hemoglobin Concent 33 g/dL (31-37) Red Cell Distribution Width 21.0 % (11.5-14.5) Platelet Count 239 x10^3/uL (140-400) Neutrophils (%) (Auto) 71 % (31-73) Lymphocytes (%) (Auto) 17 % (24-48) Monocytes (%) (Auto) 7 % (0-9) Eosinophils (%) (Auto) 4 % (0-3) Basophils (%) (Auto) 0 % (0-3) Neutrophils # (Auto) 4.3 x10^3uL (1.8-7.7) Lymphocytes # (Auto) 1.1 x10^3/uL (1.0-4.8) Monocytes # (Auto) 0.4 x10^3/uL (0.0-1.1) Eosinophils # (Auto) 0.2 x10^3/uL (0.0-0.7) Basophils # (Auto) 0.0 x10^3/uL (0.0-0.2) Sodium Level 143 mmol/L (136-145) Potassium Level 3.4 mmol/L (3.5-5.1) Chloride Level 110 mmol/L (98-107) Carbon Dioxide Level 19 mmol/L (21-32) Anion Gap 14 (6-14) Blood Urea Nitrogen 4 mg/dL (7-20) Creatinine 0.8 mg/dL (0.6-1.0) Estimated GFR (Cockcroft-Gault) 93.9 BUN/Creatinine Ratio 5 (6-20) Glucose Level 90 mg/dL (70-99) Calcium Level 9.0 mg/dL (8.5-10.1) Total Bilirubin 0.2 mg/dL (0.2-1.0) Aspartate Amino Transf (AST/SGOT) 25 U/L (15-37) Alanine Aminotransferase (ALT/SGPT) 67 U/L (14-59) Alkaline Phosphatase 83 U/L (46-116) Total Protein 6.2 g/dL (6.4-8.2) Albumin 2.6 g/dL (3.4-5.0) Albumin/Globulin Ratio 0.7 (1.0-1.7) Problem List Problems Medical Problems: (1) Abdominal pain Status: Acute (2) Bandemia Status: Acute (3) Leukocytosis Status: Acute (4) Nausea vomiting and diarrhea Status: Acute (5) UTI (urinary tract infection) Status: Acute Assessment/Plan advance diet LIGIA ALONSO MD 07/27/185: SURGICAL PROGRESS NOTE Assessment/Plan as above ISAAC COLE APRN Jul 27, 2018 12:02 LGIIA ALONSO MD Jul 27, 2018 19:35
[2018-07-27] MEDS: hydroCHLOROthiazide 12.5 MG CAPSULE PO SCH (13:18)
[2018-07-27 15:00] VITALS: BP 126/83
[2018-07-27 19:00] VITALS: BP 116/74
[2018-07-27] MEDS: LACTOBACILLUS RHAMNOSUS GG 1 CAPSULE. PO SCH (21:20)
[2018-07-27] MEDS: ATORVASTATIN CALCIUM 20 MG TABLET PO SCH (21:20)
[2018-07-27] MEDS: ACETAMINOPHEN 500 MG TABLET PO PRN (21:20)
[2018-07-27 23:00] VITALS: BP 122/83
--- NOTE | 2018-07-27 23:22 | PDOC ---
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 Nonobstructing left intrarenal calculi. Enlarged fibroid uterus. Probable renal cysts. asthma HTN morbid obesity h/o seizure AMS at hosp, with [employer] likely gastric bx + h pylori plan: ADAT - mary full liquid diet Plans to f/u with [facility] for eval/chemo c/o LE swelling but resolved with leg elagvation - if recurs US of LE needed Vitals Vitals Vital Signs Date Time Temp Pulse Resp B/P (MAP) Pulse Ox O2 Delivery O2 Flow Rate FiO2 07/27/18 19:42 98 Nasal Cannula 2.0 07/27/18 19:00 98.1 97 18 116/74 (88) 98.1 Physical Exam General: Alert, Oriented X3, Cooperative, No acute distress Heart: Regular rate, Normal S1, Normal S2, No murmurs Lungs: Clear Abdomen: Soft, No tenderness Extremities: No clubbing, No cyanosis, Normal pulses Skin: No rashes, No breakdown Labs LABS Laboratory Tests Test 07/27/18 06:45 White Blood Count 6.1 x10^3/uL (4.0-11.0) Red Blood Count 3.59 x10^6/uL (3.50-5.40) Hemoglobin 9.7 g/dL (12.0-15.5) Hematocrit 29.1 % (36.0-47.0) Mean Corpuscular Volume 81 fL (79-100) Mean Corpuscular Hemoglobin 27 pg (25-35) Mean Corpuscular Hemoglobin Concent 33 g/dL (31-37) Red Cell Distribution Width 21.0 % (11.5-14.5) Platelet Count 239 x10^3/uL (140-400) Neutrophils (%) (Auto) 71 % (31-73) Lymphocytes (%) (Auto) 17 % (24-48) Monocytes (%) (Auto) 7 % (0-9) Eosinophils (%) (Auto) 4 % (0-3) Basophils (%) (Auto) 0 % (0-3) Neutrophils # (Auto) 4.3 x10^3uL (1.8-7.7) Lymphocytes # (Auto) 1.1 x10^3/uL (1.0-4.8) Monocytes # (Auto) 0.4 x10^3/uL (0.0-1.1) Eosinophils # (Auto) 0.2 x10^3/uL (0.0-0.7) Basophils # (Auto) 0.0 x10^3/uL (0.0-0.2) Sodium Level 143 mmol/L (136-145) Potassium Level 3.4 mmol/L (3.5-5.1) Chloride Level 110 mmol/L (98-107) Carbon Dioxide Level 19 mmol/L (21-32) Anion Gap 14 (6-14) Blood Urea Nitrogen 4 mg/dL (7-20) Creatinine 0.8 mg/dL (0.6-1.0) Estimated GFR (Cockcroft-Gault) 93.9 BUN/Creatinine Ratio 5 (6-20) Glucose Level 90 mg/dL (70-99) Calcium Level 9.0 mg/dL (8.5-10.1) Total Bilirubin 0.2 mg/dL (0.2-1.0) Aspartate Amino Transf (AST/SGOT) 25 U/L (15-37) Alanine Aminotransferase (ALT/SGPT) 67 U/L (14-59) Alkaline Phosphatase 83 U/L (46-116) Total Protein 6.2 g/dL (6.4-8.2) Albumin 2.6 g/dL (3.4-5.0) Albumin/Globulin Ratio 0.7 (1.0-1.7) Assessment and Plan Assessmemt and Plan Problems Medical Problems: (1) Abdominal pain Status: Acute (2) Bandemia Status: Acute (3) Leukocytosis Status: Acute (4) Nausea vomiting and diarrhea Status: Acute (5) UTI (urinary tract infection) Status: Acute Comment Review of Relevant I have reviewed the following items dawson (where applicable) has been applied. Labs Laboratory Tests Test 07/26/18 08:25 07/27/18 06:45 White Blood Count 7.0 x10^3/uL (4.0-11.0) 6.1 x10^3/uL (4.0-11.0) Red Blood Count 4.00 x10^6/uL (3.50-5.40) 3.59 x10^6/uL (3.50-5.40) Hemoglobin 10.9 g/dL (12.0-15.5) 9.7 g/dL (12.0-15.5) Hematocrit 32.7 % (36.0-47.0) 29.1 % (36.0-47.0) Mean Corpuscular Volume 82 fL (79-100) 81 fL (79-100) Mean Corpuscular Hemoglobin 27 pg (25-35) 27 pg (25-35) Mean Corpuscular Hemoglobin Concent 33 g/dL (31-37) 33 g/dL (31-37) Red Cell Distribution Width 20.7 % (11.5-14.5) 21.0 % (11.5-14.5) Platelet Count 250 x10^3/uL (140-400) 239 x10^3/uL (140-400) Neutrophils (%) (Auto) 76 % (31-73) 71 % (31-73) Lymphocytes (%) (Auto) 16 % (24-48) 17 % (24-48) Monocytes (%) (Auto) 5 % (0-9) 7 % (0-9) Eosinophils (%) (Auto) 3 % (0-3) 4 % (0-3) Basophils (%) (Auto) 0 % (0-3) 0 % (0-3) Neutrophils # (Auto) 5.2 x10^3uL (1.8-7.7) 4.3 x10^3uL (1.8-7.7) Lymphocytes # (Auto) 1.1 x10^3/uL (1.0-4.8) 1.1 x10^3/uL (1.0-4.8) Monocytes # (Auto) 0.4 x10^3/uL (0.0-1.1) 0.4 x10^3/uL (0.0-1.1) Eosinophils # (Auto) 0.2 x10^3/uL (0.0-0.7) 0.2 x10^3/uL (0.0-0.7) Basophils # (Auto) 0.0 x10^3/uL (0.0-0.2) 0.0 x10^3/uL (0.0-0.2) Sodium Level 142 mmol/L (136-145) 143 mmol/L (136-145) Potassium Level 3.0 mmol/L (3.5-5.1) 3.4 mmol/L (3.5-5.1) Chloride Level 108 mmol/L (98-107) 110 mmol/L (98-107) Carbon Dioxide Level 17 mmol/L (21-32) 19 mmol/L (21-32) Anion Gap 17 (6-14) 14 (6-14) Blood Urea Nitrogen 6 mg/dL (7-20) 4 mg/dL (7-20) Creatinine 0.7 mg/dL (0.6-1.0) 0.8 mg/dL (0.6-1.0) Estimated GFR (Cockcroft-Gault) 109.5 93.9 BUN/Creatinine Ratio 9 (6-20) 5 (6-20) Glucose Level 75 mg/dL (70-99) 90 mg/dL (70-99) Calcium Level 8.9 mg/dL (8.5-10.1) 9.0 mg/dL (8.5-10.1) Total Bilirubin 0.3 mg/dL (0.2-1.0) 0.2 mg/dL (0.2-1.0) Aspartate Amino Transf (AST/SGOT) 36 U/L (15-37) 25 U/L (15-37) Alanine Aminotransferase (ALT/SGPT) 87 U/L (14-59) 67 U/L (14-59) Alkaline Phosphatase 98 U/L (46-116) 83 U/L (46-116) Total Protein 6.8 g/dL (6.4-8.2) 6.2 g/dL (6.4-8.2) Albumin 2.9 g/dL (3.4-5.0) 2.6 g/dL (3.4-5.0) Albumin/Globulin Ratio 0.7 (1.0-1.7) 0.7 (1.0-1.7) Laboratory Tests Test 07/27/18 06:45 White Blood Count 6.1 x10^3/uL (4.0-11.0) Red Blood Count 3.59 x10^6/uL (3.50-5.40) Hemoglobin 9.7 g/dL (12.0-15.5) Hematocrit 29.1 % (36.0-47.0) Mean Corpuscular Volume 81 fL (79-100) Mean Corpuscular Hemoglobin 27 pg (25-35) Mean Corpuscular Hemoglobin Concent 33 g/dL (31-37) Red Cell Distribution Width 21.0 % (11.5-14.5) Platelet Count 239 x10^3/uL (140-400) Neutrophils (%) (Auto) 71 % (31-73) Lymphocytes (%) (Auto) 17 % (24-48) Monocytes (%) (Auto) 7 % (0-9) Eosinophils (%) (Auto) 4 % (0-3) Basophils (%) (Auto) 0 % (0-3) Neutrophils # (Auto) 4.3 x10^3uL (1.8-7.7) Lymphocytes # (Auto) 1.1 x10^3/uL (1.0-4.8) Monocytes # (Auto) 0.4 x10^3/uL (0.0-1.1) Eosinophils # (Auto) 0.2 x10^3/uL (0.0-0.7) Basophils # (Auto) 0.0 x10^3/uL (0.0-0.2) Sodium Level 143 mmol/L (136-145) Potassium Level 3.4 mmol/L (3.5-5.1) Chloride Level 110 mmol/L (98-107) Carbon Dioxide Level 19 mmol/L (21-32) Anion Gap 14 (6-14) Blood Urea Nitrogen 4 mg/dL (7-20) Creatinine 0.8 mg/dL (0.6-1.0) Estimated GFR (Cockcroft-Gault) 93.9 BUN/Creatinine Ratio 5 (6-20) Glucose Level 90 mg/dL (70-99) Calcium Level 9.0 mg/dL (8.5-10.1) Total Bilirubin 0.2 mg/dL (0.2-1.0) Aspartate Amino Transf (AST/SGOT) 25 U/L (15-37) Alanine Aminotransferase (ALT/SGPT) 67 U/L (14-59) Alkaline Phosphatase 83 U/L (46-116) Total Protein 6.2 g/dL (6.4-8.2) Albumin 2.6 g/dL (3.4-5.0) Albumin/Globulin Ratio 0.7 (1.0-1.7) Microbiology 07/20/18 Urine Culture - Final, Complete 07/20/18 Urine Culture Result 1 (SHEBA) - Final, Complete Medications Current Medications Sodium Chloride 1,000 ml @ 1,000 mls/hr 1X ONCE IV Last administered on at 09:37; Start 07/12/18 at 09:15; Stop 07/12/18 at 10:14; Status DC Ondansetron HCl (Zofran) 4 mg 1X ONCE IV Last administered on 07/12/18at 09:43 ; Start 07/12/18 at 09:15; Stop 07/12/18 at 09:16; Status DC Dicyclomine HCl (Bentyl) 20 mg 1X ONCE IM Last administered on 07/12/18at 10:44 ; Start 07/12/18 at 09:15; Stop 07/12/18 at 09:16; Status DC Iohexol (Omnipaque 300 Mg/ml) 75 ml 1X ONCE IV Last administered on 07/12/18at 10:30; Start 07/12/18 at 10:30; Stop 07/12/18 at 10:32; Status DC Info (CONTRAST GIVEN -- Rx MONITORING) 1 each PRN DAILY PRN MC SEE COMMENTS; Start 07/12/18 at 10:45; Stop 07/14/18 at 10:44; Status DC Metronidazole 100 ml @ 100 mls/hr 1X ONCE IV Last administered on 07/12/18at 13:10; Start 07/12/18 at 12:30; Stop 07/12/18 at 13:29; Status DC Ciprofloxacin/ Dextrose 200 ml @ 200 mls/hr Q12HR IV Last administered on 07/12at 23:00; Start 07/12/18 at 13:30; Stop 07/13/18 at 08:57; Status DC Morphine Sulfate (Morphine Sulfate) 2 mg PRN Q2HR PRN IV SEVERE PAIN Last administered on 07/13/18at 16:10; Start 07/12/18 at 16:00; Stop 07/17/18 at 09:36 ; Status DC Atorvastatin Calcium (Lipitor) 20 mg HS PO Last administered on 07/27/18at 21:20 ; Start 07/12/18 at 21:00 Cetirizine HCl (ZyrTEC) 10 mg DAILY PO Last administered on 07/27/18 08:06; Start 07/12/18 at 16:00 Lubiprostone (Amitiza) 8 mcg BID PO Last administered on 07/13/18at 08:23; Start 07/12/18 at 21:00; Stop 07/13/18 at 08:49; Status DC Lisinopril (Prinivil) 10 mg DAILY PO Last administered on 07/27/18at 08:04; Start 07/13/18 at 09:00 Oxcarbazepine (Trileptal) 300 mg BID PO Last administered on 07/13/18 08:23; Start 07/12/18 at 21:00; Stop 07/13/18 at 11:19; Status DC Polyethylene Glycol (miraLAX PACKET) 17 gm BID PO Last administered on at 10:32; Start 07/12/18 at 21:00 Topiramate (Topamax) 100 mg BID PO Last administered on 07/27/18at 21:20; Start 07/12/18 at 21:00 Hydrochlorothiazide (Microzide) 12.5 mg DAILY PO Last administered on at 11:44; Start 07/13/18 at 09:00; Stop 07/16/18 at 11:39; Status DC Ketorolac Tromethamine (Toradol 30mg Vial) 30 mg PRN Q6HRS PRN IV MILD - MODERATE PAIN; Start 07/12/18 at 20:00; Stop 07/17/18 at 19:59; Status DC Lactobacillus Rhamnosus (Culturelle) 1 cap BID PO Last administered on at 20:12; Start 07/13/18 at 09:00; Stop 07/22/18 at 16:39; Status DC Ciprofloxacin/ Dextrose 200 ml @ 200 mls/hr Q12H IV Last administered on at 10:49; Start 07/13/18 at 11:00; Stop 07/16/18 at 11:39; Status DC Metronidazole 100 ml @ 100 mls/hr Q8HRS IV Last administered on 07/16/18at 06: 09; Start 07/13/18 at 09:00; Stop 07/16/18 at 11:39; Status DC Potassium Chloride (Klor-Con) 40 meq 1X ONCE PO Last administered on 09:26; Start 07/13/18 at 08:45; Stop 07/13/18 at 08:52; Status DC Potassium Chloride (Klor-Con) 40 meq DAILYWBKFT PO Last administered on 08:01; Start 07/14/18 at 08:00 Loperamide HCl (Imodium) 2 mg PRN Q15MIN PRN PO DIARRHEA Last administered on 09:40; Start 07/13/18 at 08:45 Ondansetron HCl (Zofran) 4 mg PRN Q6HRS PRN IV NAUSEA/VOMITING, 1ST CHOICE Last administered on 07/21/18 07:41; Start 07/13/18 at 08:45 Ondansetron HCl (Zofran Odt) 4 mg PRN Q6HRS PRN PO NAUSEA/VOMITING Last administered on 07/21/18 16:52; Start 07/13/18 at 08:45 Acetaminophen (Tylenol) 500 mg PRN Q6HRS PRN PO MILD PAIN / TEMP Last administered on 07/27/18 21:20; Start 07/13/18 at 08:45 Acetaminophen/ Hydrocodone Bitart (Lortab 5/325) 1 tab PRN Q4HRS PRN PO PAIN MODERATE TO SEVERE Last administered on 07/21/18 16:55; Start 07/13/18 at 08:45 Sodium Chloride 1,000 ml @ 100 mls/hr 1X ONCE IV Last administered on 09:33; Start 07/13/18 at 09:00; Stop 07/13/18 at 18:59; Status DC Oxcarbazepine (Trileptal) 900 mg BID PO Last administered on 07/27/18 21:20; Start 07/13/18 at 21:00 Bisacodyl (Dulcolax Tab) 10 mg 1X ONCE PO Last administered on 07/13/18 17:07 ; Start 07/13/18 at 17:00; Stop 07/13/18 at 17:01; Status DC Polyethylene Glycol (miraLAX Powder BULK BOTTLE) 238 gm 1X ONCE PO Last administered on 07/13/18 19:35; Start 07/13/18 at 19:00; Stop 07/13/18 at 19:01 ; Status DC Sodium Chloride (Normal Saline Flush) 3 ml QSHIFT PRN IV AFTER MEDS AND BLOOD DRAWS; Start 07/13/18 at 16:45 Sodium Chloride (Normal Saline Flush) 3 ml QSHIFT PRN IV AFTER MEDS AND BLOOD DRAWS; Start 07/13/18 at 16:45; Status UNV Benzocaine (Hurricaine One) 1 spray STK-MED ONCE .ROUTE ; Start 07/14/18 at 07: 58; Stop 07/14/18 at 07:59; Status DC Midazolam HCl (Versed) 5 mg STK-MED ONCE .ROUTE ; Start 07/14/18 at 07:59; Stop 07/14/18 at 08:00; Status DC Fentanyl Citrate (Fentanyl 2ml Vial) 100 mcg STK-MED ONCE .ROUTE ; Start at 07:59; Stop 07/14/18 at 08:00; Status DC Propofol 40 ml @ As Directed STK-MED ONCE IV ; Start 07/14/18 at 08:34; Stop at 08:35; Status DC Lidocaine HCl (Lidocaine Pf 2% Vial) 5 ml STK-MED ONCE .ROUTE ; Start 07/14/18 at 08:34; Stop 07/14/18 at 08:35; Status DC Cefazolin Sodium/ Dextrose 50 ml @ 100 mls/hr 1X PREOP PRN IV front end software developer to OR Last administered on 07/15/18at 09:40; Start 07/15/18 at 06:00; Stop 07/15/18 at 18:00; Status DC Metronidazole 100 ml @ 100 mls/hr 1X PREOP PRN IV front end software developer to OR; Start at 06:00; Stop 07/15/18 at 18:00; Status DC Fentanyl Citrate (Fentanyl 2ml Vial) 25 mcg PRN Q5MIN PRN IV MILD PAIN; Start 07/15/18 at 07:00; Stop 07/15/18 at 21:00; Status DC Fentanyl Citrate (Fentanyl 2ml Vial) 50 mcg PRN Q5MIN PRN IV MODERATE TO SEVERE PAIN Last administered on 07/15/18at 13:55; Start 07/15/18 at 07:00; Stop 07/15/18 at 21:00; Status DC Morphine Sulfate (Morphine Sulfate) 1 mg PRN Q10MIN PRN IV SEVERE PAIN; Start 07/15/18 at 07:00; Stop 07/15/18 at 21:00; Status DC Ringer's Solution 1,000 ml @ 30 mls/hr Q24H IV ; Start 07/15/18 at 07:00; Stop 07/15/18 at 18:59; Status DC Lidocaine HCl (Xylocaine-Mpf 1% 2ml Vial) 2 ml PRN 1X PRN ID IV START; Start at 07:00; Stop 07/15/18 at 21:00; Status DC Hydromorphone HCl (Dilaudid) 0.5 mg PRN Q10MIN PRN IV SEV PAIN, Second choice; Start 07/15/18 at 07:00; Stop 07/15/18 at 21:00; Status DC Prochlorperazine Edisylate (Compazine) 5 mg PACU PRN PRN IV NAUSEA, MRX1; Start 07/15/18 at 07:00; Stop 07/15/18 at 21:00; Status DC Epinephrine HCl (Adrenalin) 30 mg STK-MED ONCE .ROUTE ; Start 07/15/18 at 08:02 ; Stop 07/15/18 at 09:03; Status DC Bupivacaine HCl (Sensorcaine Mpf 0.25%) 30 ml STK-MED ONCE .ROUTE ; Start at 08:02; Stop 07/15/18 at 09:03; Status DC Sevoflurane (Ultane) 90 ml STK-MED ONCE IH ; Start 07/15/18 at 09:12; Stop 07/15 at 09:13; Status DC Midazolam HCl (Versed) 2 mg STK-MED ONCE .ROUTE ; Start 07/15/18 at 09:12; Stop 07/15/18 at 09:13; Status DC Fentanyl Citrate (Fentanyl 2ml Vial) 100 mcg STK-MED ONCE .ROUTE ; Start at 09:12; Stop 07/15/18 at 09:13; Status DC Glycopyrrolate (Robinul) 1 mg STK-MED ONCE .ROUTE ; Start 07/15/18 at 09:13; Stop 07/15/18 at 09:14; Status DC Neostigmine Methylsulfate (Neostigmine Methylsulfate) 5 mg STK-MED ONCE .ROUTE ; Start 07/15/18 at 09:13; Stop 07/15/18 at 09:14; Status DC Rocuronium Dugger (Zemuron) 50 mg STK-MED ONCE .ROUTE ; Start 07/15/18 at 09:13 ; Stop 07/15/18 at 09:14; Status DC Dexamethasone Sodium Phosphate (Decadron) 20 mg STK-MED ONCE .ROUTE ; Start at 09:13; Stop 07/15/18 at 09:14; Status DC Ketorolac Tromethamine (Toradol For Or Only) 30 mg STK-MED ONCE INJ ; Start at 09:13; Stop 07/15/18 at 09:14; Status DC Propofol 20 ml @ As Directed STK-MED ONCE IV ; Start 07/15/18 at 09:13; Stop at 09:14; Status DC Ondansetron HCl (Zofran) 4 mg STK-MED ONCE .ROUTE ; Start 07/15/18 at 09:13; Stop 07/15/18 at 09:14; Status DC Phenylephrine HCl (PHENYLEPHRINE in 0.9% NACL PF) 1 mg STK-MED ONCE IV ; Start 07/15/18 at 09:53; Stop 07/15/18 at 09:54; Status DC Fentanyl Citrate (Fentanyl 2ml Vial) 100 mcg STK-MED ONCE .ROUTE ; Start at 10:05; Stop 07/15/18 at 10:06; Status DC Esmolol HCl (Brevibloc) 100 mg STK-MED ONCE IV ; Start 07/15/18 at 10:09; Stop 07/15/18 at 10:10; Status DC Rocuronium Dugger (Zemuron) 50 mg STK-MED ONCE .ROUTE ; Start 07/15/18 at 10:10 ; Stop 07/15/18 at 10:11; Status DC Ephedrine Sulfate (ePHEDrine PF IN SALINE SYRINGE) 50 mg STK-MED ONCE IV ; Start 07/15/18 at 11:02; Stop 07/15/18 at 11:03; Status DC Fentanyl Citrate (Fentanyl 2ml Vial) 100 mcg STK-MED ONCE .ROUTE ; Start at 11:09; Stop 07/15/18 at 11:10; Status DC Fentanyl Citrate (Fentanyl 2ml Vial) 100 mcg STK-MED ONCE .ROUTE ; Start at 12:51; Stop 07/15/18 at 12:52; Status DC Morphine Sulfate 30 ml @ 0 mls/hr CONT PRN PRN IV PER PROTOCOL Last administered on 07/16/18at 19:50; Start 07/15/18 at 13:30; Stop 07/17/18 at 09:43 ; Status DC Fentanyl Citrate (Fentanyl 2ml Vial) 100 mcg STK-MED ONCE .ROUTE ; Start at 13:34; Stop 07/15/18 at 13:35; Status DC Throat Lozenges (Chloraseptic) 1 spray PRN Q3HRS PRN PO SORE THROAT Last administered on 07/24/18at 12:09; Start 07/15/18 at 21:45 Sodium Chloride 1,000 ml @ 1,000 mls/hr 1X ONCE IV Last administered on at 03:45; Start 07/16/18 at 03:45; Stop 07/16/18 at 04:44; Status DC Sodium Chloride 1,000 ml @ 125 mls/hr 1X ONCE IV ; Start 07/16/18 at 04:45; Stop 07/16/18 at 12:44; Status Cancel Sodium Chloride 1,000 ml @ 125 mls/hr Q8H IV Last administered on 07/20/18at 10 :04; Start 07/16/18 at 05:00; Stop 07/20/18 at 14:15; Status DC Enoxaparin Sodium (Lovenox 40mg Syringe) 40 mg Q24H SQ Last administered on at 13:42; Start 07/16/18 at 10:00; Stop 07/19/18 at 14:34; Status DC Albuterol/ Ipratropium (Duoneb) 3 ml RTQID NEB Last administered on 07/27/18at 19:42; Start 07/16/18 at 12:00 Albuterol Sulfate (Ventolin Neb Soln) 2.5 mg PRN Q4HRS PRN NEB SHORTNESS OF BREATH Last administered on 07/26/18at 03:00; Start 07/16/18 at 11:45 Al Hydroxide/Mg Hydroxide (Mylanta Plus Xs) 30 ml PRN Q2HR PRN PO HEARTBURN / GAS; Start 07/16/18 at 22:00; Stop 07/16/18 at 22:00; Status DC Famotidine (Pepcid) 20 mg QHS PO ; Start 07/17/18 at 21:00; Stop 07/17/18 at 21: 00; Status DC Famotidine (Pepcid) 20 mg 1X ONCE PO ; Start 07/16/18 at 22:00; Stop 07/16/18 at 22:00; Status DC Famotidine (Pepcid Vial) 20 mg QHS IVP Last administered on 07/17/18at 21:16; Start 07/17/18 at 21:00; Stop 07/18/18 at 08:21; Status DC Famotidine (Pepcid Vial) 20 mg 1X ONCE IVP Last administered on 07/16/18at 22: 38; Start 07/16/18 at 22:30; Stop 07/16/18 at 22:31; Status DC Iron Sucrose 200 mg/Sodium Chloride 110 ml @ 55 mls/hr DAILY IV Last administered on 07/21/18at 10:27; Start 07/17/18 at 12:30; Stop 07/21/18 at 12:29 ; Status DC Calcium Carbonate/ Glycine (Tums) 500 mg PRN AFTMEALHC PRN PO INDIGESTION Last administered on 07/18/18at 16:30; Start 07/17/18 at 21:15 Iohexol (Omnipaque 300 Mg/ml) 75 ml 1X ONCE IV Last administered on 07/18/18at 08:15; Start 07/18/18 at 08:15; Stop 07/18/18 at 08:16; Status DC Info (CONTRAST GIVEN -- Rx MONITORING) 1 each PRN DAILY PRN MC SEE COMMENTS; Start 07/18/18 at 08:15; Stop 07/20/18 at 08:14; Status DC Famotidine (Pepcid Vial) 20 mg BID IVP Last administered on 07/21/18at 07:41; Start 07/18/18 at 09:00; Stop 07/21/18 at 11:57; Status DC Multi-Ingredient Mouthwash/Gargle (Gi Cocktail) 20 ml PRN QID PRN PO CHEST PAIN Last administered on 07/18/18at 13:57; Start 07/18/18 at 12:00; Stop at 13:11; Status DC Enoxaparin Sodium (Lovenox 40mg Syringe) 40 mg Q12HR SQ Last administered on 21:20; Start 07/19/18 at 21:00 Prochlorperazine Edisylate (Compazine) 10 mg PRN Q6HRS PRN IV NAUSEA/VOMITING, 2ND CHOICE Last administered on 07/21/18at 17:48; Start 07/21/18 at 10:15 Amoxicillin (Amoxil) 1,000 mg BID PO Last administered on 07/27/18 21:20; Start 07/21/18 at 12:30 Clarithromycin (Biaxin) 500 mg BID PO Last administered on 07/27/18 21:20; Start 07/21/18 at 12:30 Pantoprazole Sodium (Protonix) 40 mg BIDAC PO Last administered on 07/27/18 16 :26; Start 07/21/18 at 16:30 Fentanyl Citrate (Fentanyl 2ml Vial) 50 mcg PRN Q2HR PRN IV SEVERE PAIN; Start 07/21/18 at 22:30 Morphine Sulfate (Morphine Sulfate) 2 mg PRN Q2HR PRN IV MODERATE PAIN Last administered on 07/24/18at 12:13; Start 07/21/18 at 22:30 Sodium Chloride 1,000 ml @ 100 mls/hr Q10H IV Last administered on 07/27/18at 09:11; Start 07/21/18 at 22:30; Stop 07/27/18 at 11:38; Status DC Famotidine (Pepcid Vial) 20 mg BID IVP Last administered on 07/25/18at 08:41; Start 07/22/18 at 21:00; Stop 07/25/18 at 10:46; Status DC Levetiracetam 500 mg/Dextrose 105 ml @ 420 mls/hr Q12HR IV Last administered on 07/25/18at 08:41; Start 07/23/18 at 13:00; Stop 07/25/18 at 21:58; Status DC Lactobacillus Rhamnosus (Culturelle) 1 cap BID PO Last administered on at 21:20; Start 07/27/18 at 21:00 Hydrochlorothiazide (Microzide) 12.5 mg DAILY PO Last administered on at 13:18; Start 07/27/18 at 12:30 Active Scripts Active Oxcarbazepine 300 Mg Tablet 900 Mg PO BID 30 Days Hydrocodone-Apap 5-325 (Hydrocodone Bit/Acetaminophen) 1 Each Tablet 1 Tab PO PRN Q4HRS PRN 14 Days Ondansetron Odt (Ondansetron) 4 Mg Tab.rapdis 4 Mg PO PRN Q6HRS PRN 14 Days Reported Advair 250-50 Diskus (Fluticasone/Salmeterol) 1 Each Disk.w.dev 1 Puff IH BID Proair Hfa Inhaler (Albuterol Sulfate) 8.5 Gm Hfa.aer.ad 1 Puff INH PRN Q6HRS PRN Miralax (Polyethylene Glycol 3350) 17 Gm Powd.pack 1 Packet PO BID Zyrtec (Cetirizine Hcl) 10 Mg Tablet 1 Tab PO DAILY Atorvastatin Calcium 20 Mg Tablet 20 Mg PO HS Topiramate 100 Mg Tablet 1 Tab PO BID Lisinopril-Hctz 10-12.5 Mg Tab (Lisinopril/Hydrochlorothiazide) 1 Each Tablet 1 Tab PO DAILY Vitals/I & O Vital Sign - Last 24 Hours 07/27/18 07/27/18 07/27/18 07/27/18 03:00 05:59 07:00 08:00 Temp 97.9 98.1 97.9 98.1 Pulse 80 74 Resp 18 16 B/P (MAP) 148/97 (114) 126/95 (105) Pulse Ox 97 98 98 O2 Delivery Room Air Room Air Room Air Room Air 07/27/18 07/27/18 07/27/18 07/27/18 08:04 11:00 11:36 15:00 Temp 97.7 97.9 97.7 97.9 Pulse 74 96 86 Resp 16 16 B/P (MAP) 126/95 133/94 (107) 126/83 (97) Pulse Ox 96 100 O2 Delivery Nasal Cannula Nasal Cannula Room Air O2 Flow Rate 2.0 2.0 07/27/18 07/27/18 07/27/18 15:38 19:00 19:42 Temp 98.1 98.1 Pulse 97 Resp 18 B/P (MAP) 116/74 (88) Pulse Ox 98 98 O2 Delivery Nasal Cannula Nasal Cannula Nasal Cannula O2 Flow Rate 2.0 2.0 2.0 Intake and Output 07/26/18 07/26/18 07/27/18 15:00 23:00 07:00 Intake Total 400 ml Balance 400 ml PETRONA COREY MD Jul 27, 2018 23:22
[2018-07-28 03:00] VITALS: BP 119/78
[2018-07-28 07:00] VITALS: BP 121/85
[2018-07-28] MEDS: IPRATRPIUM/ALBUTEROL 0.5/2.5MG 3 ML NEBU. NEB SCH ×4 (07:20→19:19)
--- NOTE | 2018-07-28 08:28 | PDOC ---
GI PROGRESS NOTES Date Date/Time DATE: 07/28/18 TIME: 08:24 Subjective Subjective improved- having loose stools- tolerating diet started treatment for H pylori and tolerating it Objective Vitals Vital Signs Date Time Temp Pulse Resp B/P (MAP) Pulse Ox O2 Delivery O2 Flow Rate FiO2 07/28/18 07:22 99 Nasal Cannula 2.0 07/28/18 07:15 Room Air 2.0 07/28/18 07:00 97.5 94 18 121/85 (97) 100 97.5 07/28/18 03:00 97.7 76 18 119/78 (92) 100 Nasal Cannula 2.0 97.7 07/27/18 23:00 98.2 82 18 122/83 (96) 97 Nasal Cannula 2.0 98.2 07/27/18 20:00 Room Air 07/27/18 19:42 98 Nasal Cannula 2.0 07/27/18 19:00 98.1 97 18 116/74 (88) 98 Nasal Cannula 2.0 98.1 07/27/18 15:38 Nasal Cannula 2.0 07/27/18 15:00 97.9 86 16 126/83 (97) 100 Room Air 97.9 07/27/18 11:36 Nasal Cannula 2.0 07/27/18 11:00 97.7 96 16 133/94 (107) 96 Nasal Cannula 2.0 97.7 Physical Exam Physical Exam alert chest- clear abd- obese- soft - good bowel sounds Assessment Assessment Post op right hemicolectomy for cecal cancer- + lymph nodes- slow post op course but now improved- heme-onc consulted and will plan post op chemo H pylori + gastritis- tolerating treatment- should continue and complete adfter d/c- we can arrange breath test in a month or two after treatment to confirm eradication OK for d/c soon from GI point of view MITCHELL GONZALEZ MD Jul 28, 2018 08:28
[2018-07-28] MEDS: POTASSIUM CHLORIDE 20 MEQ TABLET.ER. PO SCH (08:44)
[2018-07-28] MEDS: ENOXAPARIN 40 MG/0.4 ML SYRINGE. SQ SCH ×2 (08:45→20:52)
[2018-07-28] MEDS: PANTOPRAZOLE 40 MG TABLET.DR. PO SCH ×3 (08:45→22:46)
[2018-07-28] MEDS: hydroCHLOROthiazide 12.5 MG CAPSULE PO SCH (08:45)
[2018-07-28] MEDS: OXcarbazepine 300 MG TABLET PO SCH ×2 (08:46→20:47)
[2018-07-28] MEDS: LACTOBACILLUS RHAMNOSUS GG 1 CAPSULE. PO SCH ×2 (08:46→20:49)
[2018-07-28] MEDS: LISINOPRIL 10 MG TABLET PO SCH (08:46)
[2018-07-28] MEDS: AMOXICILLIN 250 MG CAPSULE. PO SCH ×2 (08:46→20:48)
[2018-07-28] MEDS: CLARITHROMYCIN 500 MG TABLET. PO SCH ×2 (08:46→20:48)
[2018-07-28] MEDS: CETIRIZINE HCL 10 MG TABLET. PO SCH (08:46)
[2018-07-28] MEDS: TOPIRAMATE 25 MG TABLET. PO SCH ×2 (08:46→20:49)
[2018-07-28] MEDS: POLYETHYLENE GLYCOL 3350 17 GM PACKET. PO SCH ×2 (08:47→20:49)
--- NOTE | 2018-07-28 08:58 | PDOC ---
SUBJECTIVE Subjective S: NG tube out, doing better O: Physical exam: Gen.: Well-nourished and well-developed, resting in bed in no acute distress Psychiatric: Pleasant mood and affect Ext: no signif edema BLE, symmetric, improved post diuretic Labs: Ferritin of 32, iron sat of 17, CEA 4.9 path: 6.0 cm invasive undifferentiated colorectal adenocarcinoma with invasion to the muscularis propria into the subserosa and pericolic soft tissues, 3 of 26 lymph nodes positive, no lymphovascular invasion, no perineural invasion, pT3 N1b M0, stage III Assessment and Plan: She is a 47-year-old female with colon cancer, resected, stage III Colon cancer: CT chest showed SAMM GGO 14 mm, will f/u CT in 3 mos likely or post chemo, her CEA was 4.9 (smoker), final pathology shows node + disease, will plan for chemo, needs a port, can do as outpt prn Anemia: She had a ferritin of 14 in October 2017, with now a ferritin of 32 and iron sat of 17% though TIBC was low, s/p IV Fe beginnng 20 Sep sucrose x 800 mg , can recheck levels in a month or so... Tobacco abuse: Highly recommend smoking cessation Cervical intraepithelial neoplasia: She has gynecology follow-up pending DVT prophylaxis: w/ Lovenox Disposition: she'll follow-up w/ [facility] as an outpatient to plan chemo after dc, this is closer to her house then our clinic here, will get her in w/ a colon specialist med onc Thank you kindly, and please do not hesitate to call with further questions. OBJECTIVE Vital Signs Vital Signs Date Time Temp Pulse Resp B/P (MAP) Pulse Ox O2 Delivery O2 Flow Rate FiO2 07/28/18 08:46 94 121/85 07/28/18 07:22 99 Nasal Cannula 2.0 07/28/18 07:15 Room Air 2.0 07/28/18 07:00 97.5 94 18 121/85 (97) 100 97.5 07/28/18 03:00 97.7 76 18 119/78 (92) 100 Nasal Cannula 2.0 97.7 07/27/18 23:00 98.2 82 18 122/83 (96) 97 Nasal Cannula 2.0 98.2 07/27/18 20:00 Room Air 07/27/18 19:42 98 Nasal Cannula 2.0 07/27/18 19:00 98.1 97 18 116/74 (88) 98 Nasal Cannula 2.0 98.1 07/27/18 15:38 Nasal Cannula 2.0 07/27/18 15:00 97.9 86 16 126/83 (97) 100 Room Air 97.9 07/27/18 11:36 Nasal Cannula 2.0 07/27/18 11:00 97.7 96 16 133/94 (107) 96 Nasal Cannula 2.0 97.7 I & O Intake and Output 07/28/18 07:00 Intake Total 1000 ml Balance 1000 ml IV Total 1000 ml # Voids 4 # Bowel Movements 2 PABLO CHOI MD Jul 28, 2018 08:58
--- NOTE | 2018-07-28 09:57 | PDOC ---
PROGRESS NOTES Assessment Problems Medical Problems: (1) Abdominal pain Status: Acute (2) Bandemia Status: Acute (3) Leukocytosis Status: Acute (4) Nausea vomiting and diarrhea Status: Acute (5) UTI (urinary tract infection) Status: Acute Epilepsy, follows at , no additional seizure, has been NPO S/P resection of cecal adenocarcinoma, s/p right colectomy. Plan Continued current anticonvulsants Follow up with her neurologist Will follow at intervals, it looks like she's planning discharge today Subjective Plans to go home today Objective Vital Signs Date Time Temp Pulse Resp B/P (MAP) Pulse Ox O2 Delivery O2 Flow Rate FiO2 07/28/18 08:46 94 121/85 07/28/18 07:22 99 Nasal Cannula 2.0 07/28/18 07:00 97.5 18 97.5 Intake and Output 07/28/18 07:00 Intake Total 1000 ml Balance 1000 ml IV Total 1000 ml # Voids 4 # Bowel Movements 2 PHYSICAL EXAM Alert. Oriented to time, place and person. PERRL. EOMI. CN: no focal findings. Muscle tone: normal. Muscle strength: 5/5 DTR: 2+ Plantar reflex: flexor Gait: normal. Sensory exam: no abnormal findings. No cerebellar signs elicited. Review of Relevant I have reviewed the following items dawson (where applicable) has been applied. Labs Laboratory Tests Test 07/27/18 06:45 White Blood Count 6.1 x10^3/uL (4.0-11.0) Red Blood Count 3.59 x10^6/uL (3.50-5.40) Hemoglobin 9.7 g/dL (12.0-15.5) Hematocrit 29.1 % (36.0-47.0) Mean Corpuscular Volume 81 fL (79-100) Mean Corpuscular Hemoglobin 27 pg (25-35) Mean Corpuscular Hemoglobin Concent 33 g/dL (31-37) Red Cell Distribution Width 21.0 % (11.5-14.5) Platelet Count 239 x10^3/uL (140-400) Neutrophils (%) (Auto) 71 % (31-73) Lymphocytes (%) (Auto) 17 % (24-48) Monocytes (%) (Auto) 7 % (0-9) Eosinophils (%) (Auto) 4 % (0-3) Basophils (%) (Auto) 0 % (0-3) Neutrophils # (Auto) 4.3 x10^3uL (1.8-7.7) Lymphocytes # (Auto) 1.1 x10^3/uL (1.0-4.8) Monocytes # (Auto) 0.4 x10^3/uL (0.0-1.1) Eosinophils # (Auto) 0.2 x10^3/uL (0.0-0.7) Basophils # (Auto) 0.0 x10^3/uL (0.0-0.2) Sodium Level 143 mmol/L (136-145) Potassium Level 3.4 mmol/L (3.5-5.1) Chloride Level 110 mmol/L (98-107) Carbon Dioxide Level 19 mmol/L (21-32) Anion Gap 14 (6-14) Blood Urea Nitrogen 4 mg/dL (7-20) Creatinine 0.8 mg/dL (0.6-1.0) Estimated GFR (Cockcroft-Gault) 93.9 BUN/Creatinine Ratio 5 (6-20) Glucose Level 90 mg/dL (70-99) Calcium Level 9.0 mg/dL (8.5-10.1) Total Bilirubin 0.2 mg/dL (0.2-1.0) Aspartate Amino Transf (AST/SGOT) 25 U/L (15-37) Alanine Aminotransferase (ALT/SGPT) 67 U/L (14-59) Alkaline Phosphatase 83 U/L (46-116) Total Protein 6.2 g/dL (6.4-8.2) Albumin 2.6 g/dL (3.4-5.0) Albumin/Globulin Ratio 0.7 (1.0-1.7) Microbiology 07/20/18 Urine Culture - Final, Complete 07/20/18 Urine Culture Result 1 (SHEBA) - Final, Complete Medications Current Medications Sodium Chloride 1,000 ml @ 1,000 mls/hr 1X ONCE IV Last administered on at 09:37; Start 07/12/18 at 09:15; Stop 07/12/18 at 10:14; Status DC Ondansetron HCl (Zofran) 4 mg 1X ONCE IV Last administered on 07/12/18at 09:43 ; Start 07/12/18 at 09:15; Stop 07/12/18 at 09:16; Status DC Dicyclomine HCl (Bentyl) 20 mg 1X ONCE IM Last administered on 07/12/18at 10:44 ; Start 07/12/18 at 09:15; Stop 07/12/18 at 09:16; Status DC Iohexol (Omnipaque 300 Mg/ml) 75 ml 1X ONCE IV Last administered on 07/12/18at 10:30; Start 07/12/18 at 10:30; Stop 07/12/18 at 10:32; Status DC Info (CONTRAST GIVEN -- Rx MONITORING) 1 each PRN DAILY PRN MC SEE COMMENTS; Start 07/12/18 at 10:45; Stop 07/14/18 at 10:44; Status DC Metronidazole 100 ml @ 100 mls/hr 1X ONCE IV Last administered on 07/12/18at 13:10; Start 07/12/18 at 12:30; Stop 07/12/18 at 13:29; Status DC Ciprofloxacin/ Dextrose 200 ml @ 200 mls/hr Q12HR IV Last administered on 07/12at 23:00; Start 07/12/18 at 13:30; Stop 07/13/18 at 08:57; Status DC Morphine Sulfate (Morphine Sulfate) 2 mg PRN Q2HR PRN IV SEVERE PAIN Last administered on 07/13/18at 16:10; Start 07/12/18 at 16:00; Stop 07/17/18 at 09:36 ; Status DC Atorvastatin Calcium (Lipitor) 20 mg HS PO Last administered on 07/27/18at 21:20 ; Start 07/12/18 at 21:00 Cetirizine HCl (ZyrTEC) 10 mg DAILY PO Last administered on 07/28/18at 08:46; Start 07/12/18 at 16:00 Lubiprostone (Amitiza) 8 mcg BID PO Last administered on 07/13/18at 08:23; Start 07/12/18 at 21:00; Stop 07/13/18 at 08:49; Status DC Lisinopril (Prinivil) 10 mg DAILY PO Last administered on 07/28/18at 08:46; Start 07/13/18 at 09:00 Oxcarbazepine (Trileptal) 300 mg BID PO Last administered on 07/13/18at 08:23; Start 07/12/18 at 21:00; Stop 07/13/18 at 11:19; Status DC Polyethylene Glycol (miraLAX PACKET) 17 gm BID PO Last administered on at 10:32; Start 07/12/18 at 21:00 Topiramate (Topamax) 100 mg BID PO Last administered on 07/28/18at 08:46; Start 07/12/18 at 21:00 Hydrochlorothiazide (Microzide) 12.5 mg DAILY PO Last administered on at 11:44; Start 07/13/18 at 09:00; Stop 07/16/18 at 11:39; Status DC Ketorolac Tromethamine (Toradol 30mg Vial) 30 mg PRN Q6HRS PRN IV MILD - MODERATE PAIN; Start 07/12/18 at 20:00; Stop 07/17/18 at 19:59; Status DC Lactobacillus Rhamnosus (Culturelle) 1 cap BID PO Last administered on at 20:12; Start 07/13/18 at 09:00; Stop 07/22/18 at 16:39; Status DC Ciprofloxacin/ Dextrose 200 ml @ 200 mls/hr Q12H IV Last administered on at 10:49; Start 07/13/18 at 11:00; Stop 07/16/18 at 11:39; Status DC Metronidazole 100 ml @ 100 mls/hr Q8HRS IV Last administered on 07/16/18at 06: 09; Start 07/13/18 at 09:00; Stop 07/16/18 at 11:39; Status DC Potassium Chloride (Klor-Con) 40 meq 1X ONCE PO Last administered on at 09:26; Start 07/13/18 at 08:45; Stop 07/13/18 at 08:52; Status DC Potassium Chloride (Klor-Con) 40 meq DAILYWBKFT PO Last administered on at 08:44; Start 07/14/18 at 08:00 Loperamide HCl (Imodium) 2 mg PRN Q15MIN PRN PO DIARRHEA Last administered on at 09:40; Start 07/13/18 at 08:45 Ondansetron HCl (Zofran) 4 mg PRN Q6HRS PRN IV NAUSEA/VOMITING, 1ST CHOICE Last administered on 07/21/18 07:41; Start 07/13/18 at 08:45 Ondansetron HCl (Zofran Odt) 4 mg PRN Q6HRS PRN PO NAUSEA/VOMITING Last administered on 07/21/18 16:52; Start 07/13/18 at 08:45 Acetaminophen (Tylenol) 500 mg PRN Q6HRS PRN PO MILD PAIN / TEMP Last administered on 07/27/18 21:20; Start 07/13/18 at 08:45 Acetaminophen/ Hydrocodone Bitart (Lortab 5/325) 1 tab PRN Q4HRS PRN PO PAIN MODERATE TO SEVERE Last administered on 07/21/18 16:55; Start 07/13/18 at 08:45 Sodium Chloride 1,000 ml @ 100 mls/hr 1X ONCE IV Last administered on at 09:33; Start 07/13/18 at 09:00; Stop 07/13/18 at 18:59; Status DC Oxcarbazepine (Trileptal) 900 mg BID PO Last administered on 07/28/18 08:46; Start 07/13/18 at 21:00 Bisacodyl (Dulcolax Tab) 10 mg 1X ONCE PO Last administered on 07/13/18at 17:07 ; Start 07/13/18 at 17:00; Stop 07/13/18 at 17:01; Status DC Polyethylene Glycol (miraLAX Powder BULK BOTTLE) 238 gm 1X ONCE PO Last administered on 07/13/18at 19:35; Start 07/13/18 at 19:00; Stop 07/13/18 at 19:01 ; Status DC Sodium Chloride (Normal Saline Flush) 3 ml QSHIFT PRN IV AFTER MEDS AND BLOOD DRAWS; Start 07/13/18 at 16:45 Sodium Chloride (Normal Saline Flush) 3 ml QSHIFT PRN IV AFTER MEDS AND BLOOD DRAWS; Start 07/13/18 at 16:45; Status UNV Benzocaine (Hurricaine One) 1 spray STK-MED ONCE .ROUTE ; Start 07/14/18 at 07: 58; Stop 07/14/18 at 07:59; Status DC Midazolam HCl (Versed) 5 mg STK-MED ONCE .ROUTE ; Start 07/14/18 at 07:59; Stop 07/14/18 at 08:00; Status DC Fentanyl Citrate (Fentanyl 2ml Vial) 100 mcg STK-MED ONCE .ROUTE ; Start at 07:59; Stop 07/14/18 at 08:00; Status DC Propofol 40 ml @ As Directed STK-MED ONCE IV ; Start 07/14/18 at 08:34; Stop at 08:35; Status DC Lidocaine HCl (Lidocaine Pf 2% Vial) 5 ml STK-MED ONCE .ROUTE ; Start 07/14/18 at 08:34; Stop 07/14/18 at 08:35; Status DC Cefazolin Sodium/ Dextrose 50 ml @ 100 mls/hr 1X PREOP PRN IV plant taxonomist to OR Last administered on 07/15/18at 09:40; Start 07/15/18 at 06:00; Stop 07/15/18 at 18:00; Status DC Metronidazole 100 ml @ 100 mls/hr 1X PREOP PRN IV plant taxonomist to OR; Start at 06:00; Stop 07/15/18 at 18:00; Status DC Fentanyl Citrate (Fentanyl 2ml Vial) 25 mcg PRN Q5MIN PRN IV MILD PAIN; Start 07/15/18 at 07:00; Stop 07/15/18 at 21:00; Status DC Fentanyl Citrate (Fentanyl 2ml Vial) 50 mcg PRN Q5MIN PRN IV MODERATE TO SEVERE PAIN Last administered on 07/15/18at 13:55; Start 07/15/18 at 07:00; Stop 07/15/18 at 21:00; Status DC Morphine Sulfate (Morphine Sulfate) 1 mg PRN Q10MIN PRN IV SEVERE PAIN; Start 07/15/18 at 07:00; Stop 07/15/18 at 21:00; Status DC Ringer's Solution 1,000 ml @ 30 mls/hr Q24H IV ; Start 07/15/18 at 07:00; Stop 07/15/18 at 18:59; Status DC Lidocaine HCl (Xylocaine-Mpf 1% 2ml Vial) 2 ml PRN 1X PRN ID IV START; Start at 07:00; Stop 07/15/18 at 21:00; Status DC Hydromorphone HCl (Dilaudid) 0.5 mg PRN Q10MIN PRN IV SEV PAIN, Second choice; Start 07/15/18 at 07:00; Stop 07/15/18 at 21:00; Status DC Prochlorperazine Edisylate (Compazine) 5 mg PACU PRN PRN IV NAUSEA, MRX1; Start 07/15/18 at 07:00; Stop 07/15/18 at 21:00; Status DC Epinephrine HCl (Adrenalin) 30 mg STK-MED ONCE .ROUTE ; Start 07/15/18 at 08:02 ; Stop 07/15/18 at 09:03; Status DC Bupivacaine HCl (Sensorcaine Mpf 0.25%) 30 ml STK-MED ONCE .ROUTE ; Start at 08:02; Stop 07/15/18 at 09:03; Status DC Sevoflurane (Ultane) 90 ml STK-MED ONCE IH ; Start 07/15/18 at 09:12; Stop 07/15 at 09:13; Status DC Midazolam HCl (Versed) 2 mg STK-MED ONCE .ROUTE ; Start 07/15/18 at 09:12; Stop 07/15/18 at 09:13; Status DC Fentanyl Citrate (Fentanyl 2ml Vial) 100 mcg STK-MED ONCE .ROUTE ; Start at 09:12; Stop 07/15/18 at 09:13; Status DC Glycopyrrolate (Robinul) 1 mg STK-MED ONCE .ROUTE ; Start 07/15/18 at 09:13; Stop 07/15/18 at 09:14; Status DC Neostigmine Methylsulfate (Neostigmine Methylsulfate) 5 mg STK-MED ONCE .ROUTE ; Start 07/15/18 at 09:13; Stop 07/15/18 at 09:14; Status DC Rocuronium Steptoe (Zemuron) 50 mg STK-MED ONCE .ROUTE ; Start 07/15/18 at 09:13 ; Stop 07/15/18 at 09:14; Status DC Dexamethasone Sodium Phosphate (Decadron) 20 mg STK-MED ONCE .ROUTE ; Start at 09:13; Stop 07/15/18 at 09:14; Status DC Ketorolac Tromethamine (Toradol For Or Only) 30 mg STK-MED ONCE INJ ; Start at 09:13; Stop 07/15/18 at 09:14; Status DC Propofol 20 ml @ As Directed STK-MED ONCE IV ; Start 07/15/18 at 09:13; Stop at 09:14; Status DC Ondansetron HCl (Zofran) 4 mg STK-MED ONCE .ROUTE ; Start 07/15/18 at 09:13; Stop 07/15/18 at 09:14; Status DC Phenylephrine HCl (PHENYLEPHRINE in 0.9% NACL PF) 1 mg STK-MED ONCE IV ; Start 07/15/18 at 09:53; Stop 07/15/18 at 09:54; Status DC Fentanyl Citrate (Fentanyl 2ml Vial) 100 mcg STK-MED ONCE .ROUTE ; Start at 10:05; Stop 07/15/18 at 10:06; Status DC Esmolol HCl (Brevibloc) 100 mg STK-MED ONCE IV ; Start 07/15/18 at 10:09; Stop 07/15/18 at 10:10; Status DC Rocuronium Steptoe (Zemuron) 50 mg STK-MED ONCE .ROUTE ; Start 07/15/18 at 10:10 ; Stop 07/15/18 at 10:11; Status DC Ephedrine Sulfate (ePHEDrine PF IN SALINE SYRINGE) 50 mg STK-MED ONCE IV ; Start 07/15/18 at 11:02; Stop 07/15/18 at 11:03; Status DC Fentanyl Citrate (Fentanyl 2ml Vial) 100 mcg STK-MED ONCE .ROUTE ; Start at 11:09; Stop 07/15/18 at 11:10; Status DC Fentanyl Citrate (Fentanyl 2ml Vial) 100 mcg STK-MED ONCE .ROUTE ; Start at 12:51; Stop 07/15/18 at 12:52; Status DC Morphine Sulfate 30 ml @ 0 mls/hr CONT PRN PRN IV PER PROTOCOL Last administered on 07/16/18at 19:50; Start 07/15/18 at 13:30; Stop 07/17/18 at 09:43 ; Status DC Fentanyl Citrate (Fentanyl 2ml Vial) 100 mcg STK-MED ONCE .ROUTE ; Start at 13:34; Stop 07/15/18 at 13:35; Status DC Throat Lozenges (Chloraseptic) 1 spray PRN Q3HRS PRN PO SORE THROAT Last administered on 07/24/18at 12:09; Start 07/15/18 at 21:45 Sodium Chloride 1,000 ml @ 1,000 mls/hr 1X ONCE IV Last administered on at 03:45; Start 07/16/18 at 03:45; Stop 07/16/18 at 04:44; Status DC Sodium Chloride 1,000 ml @ 125 mls/hr 1X ONCE IV ; Start 07/16/18 at 04:45; Stop 07/16/18 at 12:44; Status Cancel Sodium Chloride 1,000 ml @ 125 mls/hr Q8H IV Last administered on 07/20/18at 10 :04; Start 07/16/18 at 05:00; Stop 07/20/18 at 14:15; Status DC Enoxaparin Sodium (Lovenox 40mg Syringe) 40 mg Q24H SQ Last administered on at 13:42; Start 07/16/18 at 10:00; Stop 07/19/18 at 14:34; Status DC Albuterol/ Ipratropium (Duoneb) 3 ml RTQID NEB Last administered on 07/28/18at 07:20; Start 07/16/18 at 12:00 Albuterol Sulfate (Ventolin Neb Soln) 2.5 mg PRN Q4HRS PRN NEB SHORTNESS OF BREATH Last administered on 07/26/18at 03:00; Start 07/16/18 at 11:45 Al Hydroxide/Mg Hydroxide (Mylanta Plus Xs) 30 ml PRN Q2HR PRN PO HEARTBURN / GAS; Start 07/16/18 at 22:00; Stop 07/16/18 at 22:00; Status DC Famotidine (Pepcid) 20 mg QHS PO ; Start 07/17/18 at 21:00; Stop 07/17/18 at 21: 00; Status DC Famotidine (Pepcid) 20 mg 1X ONCE PO ; Start 07/16/18 at 22:00; Stop 07/16/18 at 22:00; Status DC Famotidine (Pepcid Vial) 20 mg QHS IVP Last administered on 07/17/18at 21:16; Start 07/17/18 at 21:00; Stop 07/18/18 at 08:21; Status DC Famotidine (Pepcid Vial) 20 mg 1X ONCE IVP Last administered on 07/16/18at 22: 38; Start 07/16/18 at 22:30; Stop 07/16/18 at 22:31; Status DC Iron Sucrose 200 mg/Sodium Chloride 110 ml @ 55 mls/hr DAILY IV Last administered on 07/21/18at 10:27; Start 07/17/18 at 12:30; Stop 07/21/18 at 12:29 ; Status DC Calcium Carbonate/ Glycine (Tums) 500 mg PRN AFTMEALHC PRN PO INDIGESTION Last administered on 07/18/18at 16:30; Start 07/17/18 at 21:15 Iohexol (Omnipaque 300 Mg/ml) 75 ml 1X ONCE IV Last administered on 07/18/18at 08:15; Start 07/18/18 at 08:15; Stop 07/18/18 at 08:16; Status DC Info (CONTRAST GIVEN -- Rx MONITORING) 1 each PRN DAILY PRN MC SEE COMMENTS; Start 07/18/18 at 08:15; Stop 07/20/18 at 08:14; Status DC Famotidine (Pepcid Vial) 20 mg BID IVP Last administered on 07/21/18at 07:41; Start 07/18/18 at 09:00; Stop 07/21/18 at 11:57; Status DC Multi-Ingredient Mouthwash/Gargle (Gi Cocktail) 20 ml PRN QID PRN PO CHEST PAIN Last administered on 07/18/18at 13:57; Start 07/18/18 at 12:00; Stop at 13:11; Status DC Enoxaparin Sodium (Lovenox 40mg Syringe) 40 mg Q12HR SQ Last administered on at 08:45; Start 07/19/18 at 21:00 Prochlorperazine Edisylate (Compazine) 10 mg PRN Q6HRS PRN IV NAUSEA/VOMITING, 2ND CHOICE Last administered on 07/21/18at 17:48; Start 07/21/18 at 10:15 Amoxicillin (Amoxil) 1,000 mg BID PO Last administered on 07/28/18 08:46; Start 07/21/18 at 12:30 Clarithromycin (Biaxin) 500 mg BID PO Last administered on 07/28/18 08:46; Start 07/21/18 at 12:30 Pantoprazole Sodium (Protonix) 40 mg BIDAC PO Last administered on 07/28/18 08 :45; Start 07/21/18 at 16:30 Fentanyl Citrate (Fentanyl 2ml Vial) 50 mcg PRN Q2HR PRN IV SEVERE PAIN; Start 07/21/18 at 22:30 Morphine Sulfate (Morphine Sulfate) 2 mg PRN Q2HR PRN IV MODERATE PAIN Last administered on 07/24/18at 12:13; Start 07/21/18 at 22:30 Sodium Chloride 1,000 ml @ 100 mls/hr Q10H IV Last administered on 07/27/18 09:11; Start 07/21/18 at 22:30; Stop 07/27/18 at 11:38; Status DC Famotidine (Pepcid Vial) 20 mg BID IVP Last administered on 07/25/18 08:41; Start 07/22/18 at 21:00; Stop 07/25/18 at 10:46; Status DC Levetiracetam 500 mg/Dextrose 105 ml @ 420 mls/hr Q12HR IV Last administered on 07/25/18 08:41; Start 07/23/18 at 13:00; Stop 07/25/18 at 21:58; Status DC Lactobacillus Rhamnosus (Culturelle) 1 cap BID PO Last administered on 08:46; Start 07/27/18 at 21:00 Hydrochlorothiazide (Microzide) 12.5 mg DAILY PO Last administered on 08:45; Start 07/27/18 at 12:30 Active Scripts Active Oxcarbazepine 300 Mg Tablet 900 Mg PO BID 30 Days Hydrocodone-Apap 5-325 (Hydrocodone Bit/Acetaminophen) 1 Each Tablet 1 Tab PO PRN Q4HRS PRN 14 Days Ondansetron Odt (Ondansetron) 4 Mg Tab.rapdis 4 Mg PO PRN Q6HRS PRN 14 Days Reported Advair 250-50 Diskus (Fluticasone/Salmeterol) 1 Each Disk.w.dev 1 Puff IH BID Proair Hfa Inhaler (Albuterol Sulfate) 8.5 Gm Hfa.aer.ad 1 Puff INH PRN Q6HRS PRN Miralax (Polyethylene Glycol 3350) 17 Gm Powd.pack 1 Packet PO BID Zyrtec (Cetirizine Hcl) 10 Mg Tablet 1 Tab PO DAILY Atorvastatin Calcium 20 Mg Tablet 20 Mg PO HS Topiramate 100 Mg Tablet 1 Tab PO BID Lisinopril-Hctz 10-12.5 Mg Tab (Lisinopril/Hydrochlorothiazide) 1 Each Tablet 1 Tab PO DAILY Vitals/I & O Vital Sign - Last 24 Hours 07/27/18 07/27/18 07/27/18 07/27/18 11:00 11:36 15:00 15:38 Temp 97.7 97.9 97.7 97.9 Pulse 96 86 Resp 16 16 B/P (MAP) 133/94 (107) 126/83 (97) Pulse Ox 96 100 O2 Delivery Nasal Cannula Nasal Cannula Room Air Nasal Cannula O2 Flow Rate 2.0 2.0 2.0 07/27/18 07/27/18 07/27/18 07/27/18 19:00 19:42 20:00 23:00 Temp 98.1 98.2 98.1 98.2 Pulse 97 82 Resp 18 18 B/P (MAP) 116/74 (88) 122/83 (96) Pulse Ox 98 98 97 O2 Delivery Nasal Cannula Nasal Cannula Room Air Nasal Cannula O2 Flow Rate 2.0 2.0 2.0 07/28/18 07/28/18 07/28/18 07/28/18 03:00 07:00 07:15 07:22 Temp 97.7 97.5 97.7 97.5 Pulse 76 94 Resp 18 18 B/P (MAP) 119/78 (92) 121/85 (97) Pulse Ox 100 100 99 O2 Delivery Nasal Cannula Room Air Nasal Cannula O2 Flow Rate 2.0 2.0 2.0 07/28/18 08:46 Pulse 94 B/P (MAP) 121/85 Intake and Output 07/27/18 07/27/18 07/28/18 15:00 23:00 07:00 Intake Total 1000 ml Balance 1000 ml ANY DUENAS MD Jul 28, 2018 09:57
[2018-07-28] MEDS: ACETAMINOPHEN 500 MG TABLET PO PRN ×2 (10:29→20:48)
[2018-07-28 11:00] VITALS: BP 117/79
--- NOTE | 2018-07-28 12:07 | PDOC ---
PROGRESS NOTES Subjective Subjective doing well, eating lunch now, having loose stools Objective Objective Vital Signs Date Time Temp Pulse Resp B/P (MAP) Pulse Ox O2 Delivery O2 Flow Rate FiO2 07/28/18 11:22 98 Nasal Cannula 2.0 07/28/18 11:00 97.7 84 18 117/79 (92) 97.7 Intake and Output 07/28/18 07:00 Intake Total 1000 ml Balance 1000 ml IV Total 1000 ml # Voids 4 # Bowel Movements 2 Physical Exam Abdomen: Soft, No tenderness Assessment Assessment Problems Medical Problems: (1) Abdominal pain Status: Acute (2) Bandemia Status: Acute (3) Leukocytosis Status: Acute (4) Nausea vomiting and diarrhea Status: Acute (5) UTI (urinary tract infection) Status: Acute Plan Plan of Care S/P R colectomy; improved. Needs portacath for future treatment, can do tomorrow and would be fine to consider discharge after. Comment Review of Relevant I have reviewed the following items [email or web address] (where applicable) has been applied. Labs Laboratory Tests Test 07/27/18 06:45 White Blood Count 6.1 x10^3/uL (4.0-11.0) Red Blood Count 3.59 x10^6/uL (3.50-5.40) Hemoglobin 9.7 g/dL (12.0-15.5) Hematocrit 29.1 % (36.0-47.0) Mean Corpuscular Volume 81 fL (79-100) Mean Corpuscular Hemoglobin 27 pg (25-35) Mean Corpuscular Hemoglobin Concent 33 g/dL (31-37) Red Cell Distribution Width 21.0 % (11.5-14.5) Platelet Count 239 x10^3/uL (140-400) Neutrophils (%) (Auto) 71 % (31-73) Lymphocytes (%) (Auto) 17 % (24-48) Monocytes (%) (Auto) 7 % (0-9) Eosinophils (%) (Auto) 4 % (0-3) Basophils (%) (Auto) 0 % (0-3) Neutrophils # (Auto) 4.3 x10^3uL (1.8-7.7) Lymphocytes # (Auto) 1.1 x10^3/uL (1.0-4.8) Monocytes # (Auto) 0.4 x10^3/uL (0.0-1.1) Eosinophils # (Auto) 0.2 x10^3/uL (0.0-0.7) Basophils # (Auto) 0.0 x10^3/uL (0.0-0.2) Sodium Level 143 mmol/L (136-145) Potassium Level 3.4 mmol/L (3.5-5.1) Chloride Level 110 mmol/L (98-107) Carbon Dioxide Level 19 mmol/L (21-32) Anion Gap 14 (6-14) Blood Urea Nitrogen 4 mg/dL (7-20) Creatinine 0.8 mg/dL (0.6-1.0) Estimated GFR (Cockcroft-Gault) 93.9 BUN/Creatinine Ratio 5 (6-20) Glucose Level 90 mg/dL (70-99) Calcium Level 9.0 mg/dL (8.5-10.1) Total Bilirubin 0.2 mg/dL (0.2-1.0) Aspartate Amino Transf (AST/SGOT) 25 U/L (15-37) Alanine Aminotransferase (ALT/SGPT) 67 U/L (14-59) Alkaline Phosphatase 83 U/L (46-116) Total Protein 6.2 g/dL (6.4-8.2) Albumin 2.6 g/dL (3.4-5.0) Albumin/Globulin Ratio 0.7 (1.0-1.7) Microbiology 07/20/18 Urine Culture - Final, Complete 07/20/18 Urine Culture Result 1 (SHEBA) - Final, Complete Medications Current Medications Sodium Chloride 1,000 ml @ 1,000 mls/hr 1X ONCE IV Last administered on at 09:37; Start 07/12/18 at 09:15; Stop 07/12/18 at 10:14; Status DC Ondansetron HCl (Zofran) 4 mg 1X ONCE IV Last administered on 07/12/18at 09:43 ; Start 07/12/18 at 09:15; Stop 07/12/18 at 09:16; Status DC Dicyclomine HCl (Bentyl) 20 mg 1X ONCE IM Last administered on 07/12/18at 10:44 ; Start 07/12/18 at 09:15; Stop 07/12/18 at 09:16; Status DC Iohexol (Omnipaque 300 Mg/ml) 75 ml 1X ONCE IV Last administered on 07/12/18at 10:30; Start 07/12/18 at 10:30; Stop 07/12/18 at 10:32; Status DC Info (CONTRAST GIVEN -- Rx MONITORING) 1 each PRN DAILY PRN MC SEE COMMENTS; Start 07/12/18 at 10:45; Stop 07/14/18 at 10:44; Status DC Metronidazole 100 ml @ 100 mls/hr 1X ONCE IV Last administered on 07/12/18at 13:10; Start 07/12/18 at 12:30; Stop 07/12/18 at 13:29; Status DC Ciprofloxacin/ Dextrose 200 ml @ 200 mls/hr Q12HR IV Last administered on 07/12at 23:00; Start 07/12/18 at 13:30; Stop 07/13/18 at 08:57; Status DC Morphine Sulfate (Morphine Sulfate) 2 mg PRN Q2HR PRN IV SEVERE PAIN Last administered on 07/13/18at 16:10; Start 07/12/18 at 16:00; Stop 07/17/18 at 09:36 ; Status DC Atorvastatin Calcium (Lipitor) 20 mg HS PO Last administered on 07/27/18at 21:20 ; Start 07/12/18 at 21:00 Cetirizine HCl (ZyrTEC) 10 mg DAILY PO Last administered on 07/28/18at 08:46; Start 07/12/18 at 16:00 Lubiprostone (Amitiza) 8 mcg BID PO Last administered on 07/13/18at 08:23; Start 07/12/18 at 21:00; Stop 07/13/18 at 08:49; Status DC Lisinopril (Prinivil) 10 mg DAILY PO Last administered on 07/28/18at 08:46; Start 07/13/18 at 09:00 Oxcarbazepine (Trileptal) 300 mg BID PO Last administered on 07/13/18at 08:23; Start 07/12/18 at 21:00; Stop 07/13/18 at 11:19; Status DC Polyethylene Glycol (miraLAX PACKET) 17 gm BID PO Last administered on at 10:32; Start 07/12/18 at 21:00 Topiramate (Topamax) 100 mg BID PO Last administered on 07/28/18 08:46; Start 07/12/18 at 21:00 Hydrochlorothiazide (Microzide) 12.5 mg DAILY PO Last administered on at 11:44; Start 07/13/18 at 09:00; Stop 07/16/18 at 11:39; Status DC Ketorolac Tromethamine (Toradol 30mg Vial) 30 mg PRN Q6HRS PRN IV MILD - MODERATE PAIN; Start 07/12/18 at 20:00; Stop 07/17/18 at 19:59; Status DC Lactobacillus Rhamnosus (Culturelle) 1 cap BID PO Last administered on at 20:12; Start 07/13/18 at 09:00; Stop 07/22/18 at 16:39; Status DC Ciprofloxacin/ Dextrose 200 ml @ 200 mls/hr Q12H IV Last administered on at 10:49; Start 07/13/18 at 11:00; Stop 07/16/18 at 11:39; Status DC Metronidazole 100 ml @ 100 mls/hr Q8HRS IV Last administered on 07/16/18at 06: 09; Start 07/13/18 at 09:00; Stop 07/16/18 at 11:39; Status DC Potassium Chloride (Klor-Con) 40 meq 1X ONCE PO Last administered on at 09:26; Start 07/13/18 at 08:45; Stop 07/13/18 at 08:52; Status DC Potassium Chloride (Klor-Con) 40 meq DAILYWBKFT PO Last administered on at 08:44; Start 07/14/18 at 08:00 Loperamide HCl (Imodium) 2 mg PRN Q15MIN PRN PO DIARRHEA Last administered on at 09:40; Start 07/13/18 at 08:45 Ondansetron HCl (Zofran) 4 mg PRN Q6HRS PRN IV NAUSEA/VOMITING, 1ST CHOICE Last administered on 07/21/18 07:41; Start 07/13/18 at 08:45 Ondansetron HCl (Zofran Odt) 4 mg PRN Q6HRS PRN PO NAUSEA/VOMITING Last administered on 9/24/18at 16:52; Start 07/13/18 at 08:45 Acetaminophen (Tylenol) 500 mg PRN Q6HRS PRN PO MILD PAIN / TEMP Last administered on 07/28/18at 10:29; Start 07/13/18 at 08:45 Acetaminophen/ Hydrocodone Bitart (Lortab 5/325) 1 tab PRN Q4HRS PRN PO PAIN MODERATE TO SEVERE Last administered on 07/21/18at 16:55; Start 07/13/18 at 08:45 Sodium Chloride 1,000 ml @ 100 mls/hr 1X ONCE IV Last administered on at 09:33; Start 07/13/18 at 09:00; Stop 07/13/18 at 18:59; Status DC Oxcarbazepine (Trileptal) 900 mg BID PO Last administered on 07/28/18at 08:46; Start 07/13/18 at 21:00 Bisacodyl (Dulcolax Tab) 10 mg 1X ONCE PO Last administered on 07/13/18at 17:07 ; Start 07/13/18 at 17:00; Stop 07/13/18 at 17:01; Status DC Polyethylene Glycol (miraLAX Powder BULK BOTTLE) 238 gm 1X ONCE PO Last administered on 07/13/18at 19:35; Start 07/13/18 at 19:00; Stop 07/13/18 at 19:01 ; Status DC Sodium Chloride (Normal Saline Flush) 3 ml QSHIFT PRN IV AFTER MEDS AND BLOOD DRAWS; Start 07/13/18 at 16:45 Sodium Chloride (Normal Saline Flush) 3 ml QSHIFT PRN IV AFTER MEDS AND BLOOD DRAWS; Start 07/13/18 at 16:45; Status UNV Benzocaine (Hurricaine One) 1 spray STK-MED ONCE .ROUTE ; Start 07/14/18 at 07: 58; Stop 07/14/18 at 07:59; Status DC Midazolam HCl (Versed) 5 mg STK-MED ONCE .ROUTE ; Start 07/14/18 at 07:59; Stop 07/14/18 at 08:00; Status DC Fentanyl Citrate (Fentanyl 2ml Vial) 100 mcg STK-MED ONCE .ROUTE ; Start at 07:59; Stop 07/14/18 at 08:00; Status DC Propofol 40 ml @ As Directed STK-MED ONCE IV ; Start 07/14/18 at 08:34; Stop at 08:35; Status DC Lidocaine HCl (Lidocaine Pf 2% Vial) 5 ml STK-MED ONCE .ROUTE ; Start 07/14/18 at 08:34; Stop 07/14/18 at 08:35; Status DC Cefazolin Sodium/ Dextrose 50 ml @ 100 mls/hr 1X PREOP PRN IV [employer] [place] Last administered on 07/15/18at 09:40; Start 07/15/18 at 06:00; Stop 07/15/18 at 18:00; Status DC Metronidazole 100 ml @ 100 mls/hr 1X PREOP PRN IV [employer] [place]; Start at 06:00; Stop 07/15/18 at 18:00; Status DC Fentanyl Citrate (Fentanyl 2ml Vial) 25 mcg PRN Q5MIN PRN IV MILD PAIN; Start 07/15/18 at 07:00; Stop 07/15/18 at 21:00; Status DC Fentanyl Citrate (Fentanyl 2ml Vial) 50 mcg PRN Q5MIN PRN IV MODERATE TO SEVERE PAIN Last administered on 07/15/18at 13:55; Start 07/15/18 at 07:00; Stop 07/15/18 at 21:00; Status DC Morphine Sulfate (Morphine Sulfate) 1 mg PRN Q10MIN PRN IV SEVERE PAIN; Start 07/15/18 at 07:00; Stop 07/15/18 at 21:00; Status DC Ringer's Solution 1,000 ml @ 30 mls/hr Q24H IV ; Start 07/15/18 at 07:00; Stop 07/15/18 at 18:59; Status DC Lidocaine HCl (Xylocaine-Mpf 1% 2ml Vial) 2 ml PRN 1X PRN ID IV START; Start at 07:00; Stop 07/15/18 at 21:00; Status DC Hydromorphone HCl (Dilaudid) 0.5 mg PRN Q10MIN PRN IV SEV PAIN, Second choice; Start 07/15/18 at 07:00; Stop 07/15/18 at 21:00; Status DC Prochlorperazine Edisylate (Compazine) 5 mg PACU PRN PRN IV NAUSEA, MRX1; Start 07/15/18 at 07:00; Stop 07/15/18 at 21:00; Status DC Epinephrine HCl (Adrenalin) 30 mg STK-MED ONCE .ROUTE ; Start 07/15/18 at 08:02 ; Stop 07/15/18 at 09:03; Status DC Bupivacaine HCl (Sensorcaine Mpf 0.25%) 30 ml STK-MED ONCE .ROUTE ; Start at 08:02; Stop 07/15/18 at 09:03; Status DC Sevoflurane (Ultane) 90 ml STK-MED ONCE IH ; Start 07/15/18 at 09:12; Stop 07/15 at 09:13; Status DC Midazolam HCl (Versed) 2 mg STK-MED ONCE .ROUTE ; Start 07/15/18 at 09:12; Stop 07/15/18 at 09:13; Status DC Fentanyl Citrate (Fentanyl 2ml Vial) 100 mcg STK-MED ONCE .ROUTE ; Start at 09:12; Stop 07/15/18 at 09:13; Status DC Glycopyrrolate (Robinul) 1 mg STK-MED ONCE .ROUTE ; Start 07/15/18 at 09:13; Stop 07/15/18 at 09:14; Status DC Neostigmine Methylsulfate (Neostigmine Methylsulfate) 5 mg STK-MED ONCE .ROUTE ; Start 07/15/18 at 09:13; Stop 07/15/18 at 09:14; Status DC Rocuronium [place] (Zemuron) 50 mg STK-MED ONCE .ROUTE ; Start 07/15/18 at 09:13 ; Stop 07/15/18 at 09:14; Status DC Dexamethasone Sodium Phosphate (Decadron) 20 mg STK-MED ONCE .ROUTE ; Start at 09:13; Stop 07/15/18 at 09:14; Status DC Ketorolac Tromethamine (Toradol For Or Only) 30 mg STK-MED ONCE INJ ; Start at 09:13; Stop 07/15/18 at 09:14; Status DC Propofol 20 ml @ As Directed STK-MED ONCE IV ; Start 07/15/18 at 09:13; Stop at 09:14; Status DC Ondansetron HCl (Zofran) 4 mg STK-MED ONCE .ROUTE ; Start 07/15/18 at 09:13; Stop 07/15/18 at 09:14; Status DC Phenylephrine HCl (PHENYLEPHRINE in 0.9% NACL PF) 1 mg STK-MED ONCE IV ; Start 07/15/18 at 09:53; Stop 07/15/18 at 09:54; Status DC Fentanyl Citrate (Fentanyl 2ml Vial) 100 mcg STK-MED ONCE .ROUTE ; Start at 10:05; Stop 07/15/18 at 10:06; Status DC Esmolol HCl (Brevibloc) 100 mg STK-MED ONCE IV ; Start 07/15/18 at 10:09; Stop 07/15/18 at 10:10; Status DC Rocuronium [place] (Zemuron) 50 mg STK-MED ONCE .ROUTE ; Start 07/15/18 at 10:10 ; Stop 07/15/18 at 10:11; Status DC Ephedrine Sulfate (ePHEDrine PF IN SALINE SYRINGE) 50 mg STK-MED ONCE IV ; Start 07/15/18 at 11:02; Stop 07/15/18 at 11:03; Status DC Fentanyl Citrate (Fentanyl 2ml Vial) 100 mcg STK-MED ONCE .ROUTE ; Start at 11:09; Stop 07/15/18 at 11:10; Status DC Fentanyl Citrate (Fentanyl 2ml Vial) 100 mcg STK-MED ONCE .ROUTE ; Start at 12:51; Stop 07/15/18 at 12:52; Status DC Morphine Sulfate 30 ml @ 0 mls/hr CONT PRN PRN IV PER PROTOCOL Last administered on 07/16/18at 19:50; Start 07/15/18 at 13:30; Stop 07/17/18 at 09:43 ; Status DC Fentanyl Citrate (Fentanyl 2ml Vial) 100 mcg STK-MED ONCE .ROUTE ; Start at 13:34; Stop 07/15/18 at 13:35; Status DC Throat Lozenges (Chloraseptic) 1 spray PRN Q3HRS PRN PO SORE THROAT Last administered on 07/24/18at 12:09; Start 07/15/18 at 21:45 Sodium Chloride 1,000 ml @ 1,000 mls/hr 1X ONCE IV Last administered on at 03:45; Start 07/16/18 at 03:45; Stop 07/16/18 at 04:44; Status DC Sodium Chloride 1,000 ml @ 125 mls/hr 1X ONCE IV ; Start 07/16/18 at 04:45; Stop 07/16/18 at 12:44; Status Cancel Sodium Chloride 1,000 ml @ 125 mls/hr Q8H IV Last administered on 07/20/18at 10 :04; Start 07/16/18 at 05:00; Stop 07/20/18 at 14:15; Status DC Enoxaparin Sodium (Lovenox 40mg Syringe) 40 mg Q24H SQ Last administered on at 13:42; Start 07/16/18 at 10:00; Stop 07/19/18 at 14:34; Status DC Albuterol/ Ipratropium (Duoneb) 3 ml RTQID NEB Last administered on 07/28/18at 11:18; Start 07/16/18 at 12:00 Albuterol Sulfate (Ventolin Neb Soln) 2.5 mg PRN Q4HRS PRN NEB SHORTNESS OF BREATH Last administered on 07/26/18at 03:00; Start 07/16/18 at 11:45 Al Hydroxide/Mg Hydroxide (Mylanta Plus Xs) 30 ml PRN Q2HR PRN PO HEARTBURN / GAS; Start 07/16/18 at 22:00; Stop 07/16/18 at 22:00; Status DC Famotidine (Pepcid) 20 mg QHS PO ; Start 07/17/18 at 21:00; Stop 07/17/18 at 21: 00; Status DC Famotidine (Pepcid) 20 mg 1X ONCE PO ; Start 07/16/18 at 22:00; Stop 07/16/18 at 22:00; Status DC Famotidine (Pepcid Vial) 20 mg QHS IVP Last administered on 07/17/18at 21:16; Start 07/17/18 at 21:00; Stop 07/18/18 at 08:21; Status DC Famotidine (Pepcid Vial) 20 mg 1X ONCE IVP Last administered on 07/16/18at 22: 38; Start 07/16/18 at 22:30; Stop 07/16/18 at 22:31; Status DC Iron Sucrose 200 mg/Sodium Chloride 110 ml @ 55 mls/hr DAILY IV Last administered on 07/21/18at 10:27; Start 07/17/18 at 12:30; Stop 07/21/18 at 12:29 ; Status DC Calcium Carbonate/ Glycine (Tums) 500 mg PRN AFTMEALHC PRN PO INDIGESTION Last administered on 07/18/18at 16:30; Start 07/17/18 at 21:15 Iohexol (Omnipaque 300 Mg/ml) 75 ml 1X ONCE IV Last administered on 07/18/18at 08:15; Start 07/18/18 at 08:15; Stop 07/18/18 at 08:16; Status DC Info (CONTRAST GIVEN -- Rx MONITORING) 1 each PRN DAILY PRN MC SEE COMMENTS; Start 07/18/18 at 08:15; Stop 07/20/18 at 08:14; Status DC Famotidine (Pepcid Vial) 20 mg BID IVP Last administered on 07/21/18at 07:41; Start 07/18/18 at 09:00; Stop 07/21/18 at 11:57; Status DC Multi-Ingredient Mouthwash/Gargle (Gi Cocktail) 20 ml PRN QID PRN PO CHEST PAIN Last administered on 07/18/18at 13:57; Start 07/18/18 at 12:00; Stop at 13:11; Status DC Enoxaparin Sodium (Lovenox 40mg Syringe) 40 mg Q12HR SQ Last administered on at 08:45; Start 07/19/18 at 21:00 Prochlorperazine Edisylate (Compazine) 10 mg PRN Q6HRS PRN IV NAUSEA/VOMITING, 2ND CHOICE Last administered on 07/21/18at 17:48; Start 07/21/18 at 10:15 Amoxicillin (Amoxil) 1,000 mg BID PO Last administered on 07/28/18at 08:46; Start 07/21/18 at 12:30 Clarithromycin (Biaxin) 500 mg BID PO Last administered on 07/28/18at 08:46; Start 07/21/18 at 12:30 Pantoprazole Sodium (Protonix) 40 mg BIDAC PO Last administered on 07/28/18at 08 :45; Start 07/21/18 at 16:30 Fentanyl Citrate (Fentanyl 2ml Vial) 50 mcg PRN Q2HR PRN IV SEVERE PAIN; Start 07/21/18 at 22:30 Morphine Sulfate (Morphine Sulfate) 2 mg PRN Q2HR PRN IV MODERATE PAIN Last administered on 07/24/18at 12:13; Start 07/21/18 at 22:30 Sodium Chloride 1,000 ml @ 100 mls/hr Q10H IV Last administered on 07/27/18at 09:11; Start 07/21/18 at 22:30; Stop 07/27/18 at 11:38; Status DC Famotidine (Pepcid Vial) 20 mg BID IVP Last administered on 07/25/18at 08:41; Start 07/22/18 at 21:00; Stop 07/25/18 at 10:46; Status DC Levetiracetam 500 mg/Dextrose 105 ml @ 420 mls/hr Q12HR IV Last administered on 07/25/18at 08:41; Start 07/23/18 at 13:00; Stop 07/25/18 at 21:58; Status DC Lactobacillus Rhamnosus (Culturelle) 1 cap BID PO Last administered on at 08:46; Start 07/27/18 at 21:00 Hydrochlorothiazide (Microzide) 12.5 mg DAILY PO Last administered on at 08:45; Start 07/27/18 at 12:30 Active Scripts Active Oxcarbazepine 300 Mg Tablet 900 Mg PO BID 30 Days Hydrocodone-Apap 5-325 (Hydrocodone Bit/Acetaminophen) 1 Each Tablet 1 Tab PO PRN Q4HRS PRN 14 Days Ondansetron Odt (Ondansetron) 4 Mg Tab.rapdis 4 Mg PO PRN Q6HRS PRN 14 Days Reported Advair 250-50 Diskus (Fluticasone/Salmeterol) 1 Each Disk.w.dev 1 Puff IH BID Proair Hfa Inhaler (Albuterol Sulfate) 8.5 Gm Hfa.aer.ad 1 Puff INH PRN Q6HRS PRN Miralax (Polyethylene Glycol 3350) 17 Gm Powd.pack 1 Packet PO BID Zyrtec (Cetirizine Hcl) 10 Mg Tablet 1 Tab PO DAILY Atorvastatin Calcium 20 Mg Tablet 20 Mg PO HS Topiramate 100 Mg Tablet 1 Tab PO BID Lisinopril-Hctz 10-12.5 Mg Tab (Lisinopril/Hydrochlorothiazide) 1 Each Tablet 1 Tab PO DAILY Vitals/I & O Vital Sign - Last 24 Hours 07/27/18 07/27/18 07/27/18 07/27/18 15:00 15:38 19:00 19:42 Temp 97.9 98.1 97.9 98.1 Pulse 86 97 Resp 16 18 B/P (MAP) 126/83 (97) 116/74 (88) Pulse Ox 100 98 98 O2 Delivery Room Air Nasal Cannula Nasal Cannula Nasal Cannula O2 Flow Rate 2.0 2.0 2.0 07/27/18 07/27/18 07/28/18 07/28/18 20:00 23:00 03:00 07:00 Temp 98.2 97.7 97.5 98.2 97.7 97.5 Pulse 82 76 94 Resp 18 18 18 B/P (MAP) 122/83 (96) 119/78 (92) 121/85 (97) Pulse Ox 97 100 100 O2 Delivery Room Air Nasal Cannula Nasal Cannula O2 Flow Rate 2.0 2.0 07/28/18 07/28/18 07/28/18 07/28/18 07:15 07:22 08:46 11:00 Temp 97.7 97.7 Pulse 94 84 Resp 18 B/P (MAP) 121/85 117/79 (92) Pulse Ox 99 100 O2 Delivery Room Air Nasal Cannula O2 Flow Rate 2.0 2.0 07/28/18 11:22 Pulse Ox 98 O2 Delivery Nasal Cannula O2 Flow Rate 2.0 Intake and Output 07/27/18 07/27/18 07/28/18 15:00 23:00 07:00 Intake Total 1000 ml Balance 1000 ml ROSHAN MANN MD Jul 28, 2018 12:07
--- NOTE | 2018-07-28 13:14 | PDOC ---
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 Nonobstructing left intrarenal calculi. Enlarged fibroid uterus. Probable renal cysts. asthma HTN morbid obesity h/o seizure AMS at hosp, with [employer] likely gastric bx + h pylori History of Present Illness History of Present Illness to diet well Port to be placed tomorrow, DC plan tomorrow Plans to f/u with [facility] for eval/chemo Vitals Vitals Vital Signs Date Time Temp Pulse Resp B/P (MAP) Pulse Ox O2 Delivery O2 Flow Rate FiO2 07/28/18 11:22 98 Nasal Cannula 2.0 07/28/18 11:00 97.7 84 18 117/79 (92) 97.7 Physical Exam General: Alert, Oriented X3, Cooperative, No acute distress Heart: Regular rate, Normal S1, Normal S2, No murmurs Lungs: Clear Abdomen: Soft, No tenderness Extremities: No clubbing, No cyanosis, Normal pulses Skin: No rashes, No breakdown Assessment and Plan Assessmemt and Plan Problems Medical Problems: (1) Abdominal pain Status: Acute (2) Bandemia Status: Acute (3) Leukocytosis Status: Acute (4) Nausea vomiting and diarrhea Status: Acute (5) UTI (urinary tract infection) Status: Acute Comment Review of Relevant I have reviewed the following items dawson (where applicable) has been applied. Labs Laboratory Tests Test 07/27/18 06:45 White Blood Count 6.1 x10^3/uL (4.0-11.0) Red Blood Count 3.59 x10^6/uL (3.50-5.40) Hemoglobin 9.7 g/dL (12.0-15.5) Hematocrit 29.1 % (36.0-47.0) Mean Corpuscular Volume 81 fL (79-100) Mean Corpuscular Hemoglobin 27 pg (25-35) Mean Corpuscular Hemoglobin Concent 33 g/dL (31-37) Red Cell Distribution Width 21.0 % (11.5-14.5) Platelet Count 239 x10^3/uL (140-400) Neutrophils (%) (Auto) 71 % (31-73) Lymphocytes (%) (Auto) 17 % (24-48) Monocytes (%) (Auto) 7 % (0-9) Eosinophils (%) (Auto) 4 % (0-3) Basophils (%) (Auto) 0 % (0-3) Neutrophils # (Auto) 4.3 x10^3uL (1.8-7.7) Lymphocytes # (Auto) 1.1 x10^3/uL (1.0-4.8) Monocytes # (Auto) 0.4 x10^3/uL (0.0-1.1) Eosinophils # (Auto) 0.2 x10^3/uL (0.0-0.7) Basophils # (Auto) 0.0 x10^3/uL (0.0-0.2) Sodium Level 143 mmol/L (136-145) Potassium Level 3.4 mmol/L (3.5-5.1) Chloride Level 110 mmol/L (98-107) Carbon Dioxide Level 19 mmol/L (21-32) Anion Gap 14 (6-14) Blood Urea Nitrogen 4 mg/dL (7-20) Creatinine 0.8 mg/dL (0.6-1.0) Estimated GFR (Cockcroft-Gault) 93.9 BUN/Creatinine Ratio 5 (6-20) Glucose Level 90 mg/dL (70-99) Calcium Level 9.0 mg/dL (8.5-10.1) Total Bilirubin 0.2 mg/dL (0.2-1.0) Aspartate Amino Transf (AST/SGOT) 25 U/L (15-37) Alanine Aminotransferase (ALT/SGPT) 67 U/L (14-59) Alkaline Phosphatase 83 U/L (46-116) Total Protein 6.2 g/dL (6.4-8.2) Albumin 2.6 g/dL (3.4-5.0) Albumin/Globulin Ratio 0.7 (1.0-1.7) Microbiology 07/20/18 Urine Culture - Final, Complete 07/20/18 Urine Culture Result 1 (SHEBA) - Final, Complete Medications Current Medications Sodium Chloride 1,000 ml @ 1,000 mls/hr 1X ONCE IV Last administered on at 09:37; Start 07/12/18 at 09:15; Stop 07/12/18 at 10:14; Status DC Ondansetron HCl (Zofran) 4 mg 1X ONCE IV Last administered on 07/12/18at 09:43 ; Start 07/12/18 at 09:15; Stop 07/12/18 at 09:16; Status DC Dicyclomine HCl (Bentyl) 20 mg 1X ONCE IM Last administered on 07/12/18at 10:44 ; Start 07/12/18 at 09:15; Stop 07/12/18 at 09:16; Status DC Iohexol (Omnipaque 300 Mg/ml) 75 ml 1X ONCE IV Last administered on 07/12/18at 10:30; Start 07/12/18 at 10:30; Stop 07/12/18 at 10:32; Status DC Info (CONTRAST GIVEN -- Rx MONITORING) 1 each PRN DAILY PRN MC SEE COMMENTS; Start 07/12/18 at 10:45; Stop 07/14/18 at 10:44; Status DC Metronidazole 100 ml @ 100 mls/hr 1X ONCE IV Last administered on 07/12/18at 13:10; Start 07/12/18 at 12:30; Stop 07/12/18 at 13:29; Status DC Ciprofloxacin/ Dextrose 200 ml @ 200 mls/hr Q12HR IV Last administered on 07/12at 23:00; Start 07/12/18 at 13:30; Stop 07/13/18 at 08:57; Status DC Morphine Sulfate (Morphine Sulfate) 2 mg PRN Q2HR PRN IV SEVERE PAIN Last administered on 07/13/18at 16:10; Start 07/12/18 at 16:00; Stop 07/17/18 at 09:36 ; Status DC Atorvastatin Calcium (Lipitor) 20 mg HS PO Last administered on 07/27/18at 21:20 ; Start 07/12/18 at 21:00 Cetirizine HCl (ZyrTEC) 10 mg DAILY PO Last administered on 07/28/18at 08:46; Start 07/12/18 at 16:00 Lubiprostone (Amitiza) 8 mcg BID PO Last administered on 07/13/18at 08:23; Start 07/12/18 at 21:00; Stop 07/13/18 at 08:49; Status DC Lisinopril (Prinivil) 10 mg DAILY PO Last administered on 07/28/18at 08:46; Start 07/13/18 at 09:00 Oxcarbazepine (Trileptal) 300 mg BID PO Last administered on 07/13/18at 08:23; Start 07/12/18 at 21:00; Stop 07/13/18 at 11:19; Status DC Polyethylene Glycol (miraLAX PACKET) 17 gm BID PO Last administered on at 10:32; Start 07/12/18 at 21:00 Topiramate (Topamax) 100 mg BID PO Last administered on 07/28/18at 08:46; Start 07/12/18 at 21:00 Hydrochlorothiazide (Microzide) 12.5 mg DAILY PO Last administered on at 11:44; Start 07/13/18 at 09:00; Stop 07/16/18 at 11:39; Status DC Ketorolac Tromethamine (Toradol 30mg Vial) 30 mg PRN Q6HRS PRN IV MILD - MODERATE PAIN; Start 07/12/18 at 20:00; Stop 07/17/18 at 19:59; Status DC Lactobacillus Rhamnosus (Culturelle) 1 cap BID PO Last administered on at 20:12; Start 07/13/18 at 09:00; Stop 07/22/18 at 16:39; Status DC Ciprofloxacin/ Dextrose 200 ml @ 200 mls/hr Q12H IV Last administered on at 10:49; Start 07/13/18 at 11:00; Stop 07/16/18 at 11:39; Status DC Metronidazole 100 ml @ 100 mls/hr Q8HRS IV Last administered on 07/16/18at 06: 09; Start 07/13/18 at 09:00; Stop 07/16/18 at 11:39; Status DC Potassium Chloride (Klor-Con) 40 meq 1X ONCE PO Last administered on at 09:26; Start 07/13/18 at 08:45; Stop 07/13/18 at 08:52; Status DC Potassium Chloride (Klor-Con) 40 meq DAILYWBKFT PO Last administered on at 08:44; Start 07/14/18 at 08:00 Loperamide HCl (Imodium) 2 mg PRN Q15MIN PRN PO DIARRHEA Last administered on at 09:40; Start 07/13/18 at 08:45 Ondansetron HCl (Zofran) 4 mg PRN Q6HRS PRN IV NAUSEA/VOMITING, 1ST CHOICE Last administered on 07/21/18 07:41; Start 07/13/18 at 08:45 Ondansetron HCl (Zofran Odt) 4 mg PRN Q6HRS PRN PO NAUSEA/VOMITING Last administered on 07/21/18 16:52; Start 07/13/18 at 08:45 Acetaminophen (Tylenol) 500 mg PRN Q6HRS PRN PO MILD PAIN / TEMP Last administered on 07/28/18at 10:29; Start 07/13/18 at 08:45 Acetaminophen/ Hydrocodone Bitart (Lortab 5/325) 1 tab PRN Q4HRS PRN PO PAIN MODERATE TO SEVERE Last administered on 07/21/18 16:55; Start 07/13/18 at 08:45 Sodium Chloride 1,000 ml @ 100 mls/hr 1X ONCE IV Last administered on at 09:33; Start 07/13/18 at 09:00; Stop 07/13/18 at 18:59; Status DC Oxcarbazepine (Trileptal) 900 mg BID PO Last administered on 07/28/18at 08:46; Start 07/13/18 at 21:00 Bisacodyl (Dulcolax Tab) 10 mg 1X ONCE PO Last administered on 07/13/18at 17:07 ; Start 07/13/18 at 17:00; Stop 07/13/18 at 17:01; Status DC Polyethylene Glycol (miraLAX Powder BULK BOTTLE) 238 gm 1X ONCE PO Last administered on 07/13/18at 19:35; Start 07/13/18 at 19:00; Stop 07/13/18 at 19:01 ; Status DC Sodium Chloride (Normal Saline Flush) 3 ml QSHIFT PRN IV AFTER MEDS AND BLOOD DRAWS; Start 07/13/18 at 16:45 Sodium Chloride (Normal Saline Flush) 3 ml QSHIFT PRN IV AFTER MEDS AND BLOOD DRAWS; Start 07/13/18 at 16:45; Status UNV Benzocaine (Hurricaine One) 1 spray STK-MED ONCE .ROUTE ; Start 07/14/18 at 07: 58; Stop 07/14/18 at 07:59; Status DC Midazolam HCl (Versed) 5 mg STK-MED ONCE .ROUTE ; Start 07/14/18 at 07:59; Stop 07/14/18 at 08:00; Status DC Fentanyl Citrate (Fentanyl 2ml Vial) 100 mcg STK-MED ONCE .ROUTE ; Start at 07:59; Stop 07/14/18 at 08:00; Status DC Propofol 40 ml @ As Directed STK-MED ONCE IV ; Start 07/14/18 at 08:34; Stop at 08:35; Status DC Lidocaine HCl (Lidocaine Pf 2% Vial) 5 ml STK-MED ONCE .ROUTE ; Start 07/14/18 at 08:34; Stop 07/14/18 at 08:35; Status DC Cefazolin Sodium/ Dextrose 50 ml @ 100 mls/hr 1X PREOP PRN IV container maker to OR Last administered on 07/15/18at 09:40; Start 07/15/18 at 06:00; Stop 07/15/18 at 18:00; Status DC Metronidazole 100 ml @ 100 mls/hr 1X PREOP PRN IV container maker to OR; Start at 06:00; Stop 07/15/18 at 18:00; Status DC Fentanyl Citrate (Fentanyl 2ml Vial) 25 mcg PRN Q5MIN PRN IV MILD PAIN; Start 07/15/18 at 07:00; Stop 07/15/18 at 21:00; Status DC Fentanyl Citrate (Fentanyl 2ml Vial) 50 mcg PRN Q5MIN PRN IV MODERATE TO SEVERE PAIN Last administered on 07/15/18at 13:55; Start 07/15/18 at 07:00; Stop 07/15/18 at 21:00; Status DC Morphine Sulfate (Morphine Sulfate) 1 mg PRN Q10MIN PRN IV SEVERE PAIN; Start 07/15/18 at 07:00; Stop 07/15/18 at 21:00; Status DC Ringer's Solution 1,000 ml @ 30 mls/hr Q24H IV ; Start 07/15/18 at 07:00; Stop 07/15/18 at 18:59; Status DC Lidocaine HCl (Xylocaine-Mpf 1% 2ml Vial) 2 ml PRN 1X PRN ID IV START; Start at 07:00; Stop 07/15/18 at 21:00; Status DC Hydromorphone HCl (Dilaudid) 0.5 mg PRN Q10MIN PRN IV SEV PAIN, Second choice; Start 07/15/18 at 07:00; Stop 07/15/18 at 21:00; Status DC Prochlorperazine Edisylate (Compazine) 5 mg PACU PRN PRN IV NAUSEA, MRX1; Start 07/15/18 at 07:00; Stop 07/15/18 at 21:00; Status DC Epinephrine HCl (Adrenalin) 30 mg STK-MED ONCE .ROUTE ; Start 07/15/18 at 08:02 ; Stop 07/15/18 at 09:03; Status DC Bupivacaine HCl (Sensorcaine Mpf 0.25%) 30 ml STK-MED ONCE .ROUTE ; Start at 08:02; Stop 07/15/18 at 09:03; Status DC Sevoflurane (Ultane) 90 ml STK-MED ONCE IH ; Start 07/15/18 at 09:12; Stop 07/15 at 09:13; Status DC Midazolam HCl (Versed) 2 mg STK-MED ONCE .ROUTE ; Start 07/15/18 at 09:12; Stop 07/15/18 at 09:13; Status DC Fentanyl Citrate (Fentanyl 2ml Vial) 100 mcg STK-MED ONCE .ROUTE ; Start at 09:12; Stop 07/15/18 at 09:13; Status DC Glycopyrrolate (Robinul) 1 mg STK-MED ONCE .ROUTE ; Start 07/15/18 at 09:13; Stop 07/15/18 at 09:14; Status DC Neostigmine Methylsulfate (Neostigmine Methylsulfate) 5 mg STK-MED ONCE .ROUTE ; Start 07/15/18 at 09:13; Stop 07/15/18 at 09:14; Status DC Rocuronium [place] (Zemuron) 50 mg STK-MED ONCE .ROUTE ; Start 07/15/18 at 09:13 ; Stop 07/15/18 at 09:14; Status DC Dexamethasone Sodium Phosphate (Decadron) 20 mg STK-MED ONCE .ROUTE ; Start at 09:13; Stop 07/15/18 at 09:14; Status DC Ketorolac Tromethamine (Toradol For Or Only) 30 mg STK-MED ONCE INJ ; Start at 09:13; Stop 07/15/18 at 09:14; Status DC Propofol 20 ml @ As Directed STK-MED ONCE IV ; Start 07/15/18 at 09:13; Stop at 09:14; Status DC Ondansetron HCl (Zofran) 4 mg STK-MED ONCE .ROUTE ; Start 07/15/18 at 09:13; Stop 07/15/18 at 09:14; Status DC Phenylephrine HCl (PHENYLEPHRINE in 0.9% NACL PF) 1 mg STK-MED ONCE IV ; Start 07/15/18 at 09:53; Stop 07/15/18 at 09:54; Status DC Fentanyl Citrate (Fentanyl 2ml Vial) 100 mcg STK-MED ONCE .ROUTE ; Start at 10:05; Stop 07/15/18 at 10:06; Status DC Esmolol HCl (Brevibloc) 100 mg STK-MED ONCE IV ; Start 07/15/18 at 10:09; Stop 07/15/18 at 10:10; Status DC Rocuronium [place] (Zemuron) 50 mg STK-MED ONCE .ROUTE ; Start 07/15/18 at 10:10 ; Stop 07/15/18 at 10:11; Status DC Ephedrine Sulfate (ePHEDrine PF IN SALINE SYRINGE) 50 mg STK-MED ONCE IV ; Start 07/15/18 at 11:02; Stop 07/15/18 at 11:03; Status DC Fentanyl Citrate (Fentanyl 2ml Vial) 100 mcg STK-MED ONCE .ROUTE ; Start at 11:09; Stop 07/15/18 at 11:10; Status DC Fentanyl Citrate (Fentanyl 2ml Vial) 100 mcg STK-MED ONCE .ROUTE ; Start at 12:51; Stop 07/15/18 at 12:52; Status DC Morphine Sulfate 30 ml @ 0 mls/hr CONT PRN PRN IV PER PROTOCOL Last administered on 07/16/18at 19:50; Start 07/15/18 at 13:30; Stop 07/17/18 at 09:43 ; Status DC Fentanyl Citrate (Fentanyl 2ml Vial) 100 mcg STK-MED ONCE .ROUTE ; Start at 13:34; Stop 07/15/18 at 13:35; Status DC Throat Lozenges (Chloraseptic) 1 spray PRN Q3HRS PRN PO SORE THROAT Last administered on 07/24/18at 12:09; Start 07/15/18 at 21:45 Sodium Chloride 1,000 ml @ 1,000 mls/hr 1X ONCE IV Last administered on at 03:45; Start 07/16/18 at 03:45; Stop 07/16/18 at 04:44; Status DC Sodium Chloride 1,000 ml @ 125 mls/hr 1X ONCE IV ; Start 07/16/18 at 04:45; Stop 07/16/18 at 12:44; Status Cancel Sodium Chloride 1,000 ml @ 125 mls/hr Q8H IV Last administered on 07/20/18at 10 :04; Start 07/16/18 at 05:00; Stop 07/20/18 at 14:15; Status DC Enoxaparin Sodium (Lovenox 40mg Syringe) 40 mg Q24H SQ Last administered on at 13:42; Start 07/16/18 at 10:00; Stop 07/19/18 at 14:34; Status DC Albuterol/ Ipratropium (Duoneb) 3 ml RTQID NEB Last administered on 07/28/18at 11:18; Start 07/16/18 at 12:00 Albuterol Sulfate (Ventolin Neb Soln) 2.5 mg PRN Q4HRS PRN NEB SHORTNESS OF BREATH Last administered on 07/26/18at 03:00; Start 07/16/18 at 11:45 Al Hydroxide/Mg Hydroxide (Mylanta Plus Xs) 30 ml PRN Q2HR PRN PO HEARTBURN / GAS; Start 07/16/18 at 22:00; Stop 07/16/18 at 22:00; Status DC Famotidine (Pepcid) 20 mg QHS PO ; Start 07/17/18 at 21:00; Stop 07/17/18 at 21: 00; Status DC Famotidine (Pepcid) 20 mg 1X ONCE PO ; Start 07/16/18 at 22:00; Stop 07/16/18 at 22:00; Status DC Famotidine (Pepcid Vial) 20 mg QHS IVP Last administered on 07/17/18at 21:16; Start 07/17/18 at 21:00; Stop 07/18/18 at 08:21; Status DC Famotidine (Pepcid Vial) 20 mg 1X ONCE IVP Last administered on 07/16/18at 22: 38; Start 07/16/18 at 22:30; Stop 07/16/18 at 22:31; Status DC Iron Sucrose 200 mg/Sodium Chloride 110 ml @ 55 mls/hr DAILY IV Last administered on 07/21/18at 10:27; Start 07/17/18 at 12:30; Stop 07/21/18 at 12:29 ; Status DC Calcium Carbonate/ Glycine (Tums) 500 mg PRN AFTMEALHC PRN PO INDIGESTION Last administered on 07/18/18at 16:30; Start 07/17/18 at 21:15 Iohexol (Omnipaque 300 Mg/ml) 75 ml 1X ONCE IV Last administered on 07/18/18at 08:15; Start 07/18/18 at 08:15; Stop 07/18/18 at 08:16; Status DC Info (CONTRAST GIVEN -- Rx MONITORING) 1 each PRN DAILY PRN MC SEE COMMENTS; Start 07/18/18 at 08:15; Stop 07/20/18 at 08:14; Status DC Famotidine (Pepcid Vial) 20 mg BID IVP Last administered on 07/21/18at 07:41; Start 07/18/18 at 09:00; Stop 07/21/18 at 11:57; Status DC Multi-Ingredient Mouthwash/Gargle (Gi Cocktail) 20 ml PRN QID PRN PO CHEST PAIN Last administered on 07/18/18at 13:57; Start 07/18/18 at 12:00; Stop at 13:11; Status DC Enoxaparin Sodium (Lovenox 40mg Syringe) 40 mg Q12HR SQ Last administered on at 08:45; Start 07/19/18 at 21:00 Prochlorperazine Edisylate (Compazine) 10 mg PRN Q6HRS PRN IV NAUSEA/VOMITING, 2ND CHOICE Last administered on 07/21/18at 17:48; Start 07/21/18 at 10:15 Amoxicillin (Amoxil) 1,000 mg BID PO Last administered on 07/28/18 08:46; Start 07/21/18 at 12:30 Clarithromycin (Biaxin) 500 mg BID PO Last administered on 07/28/18 08:46; Start 07/21/18 at 12:30 Pantoprazole Sodium (Protonix) 40 mg BIDAC PO Last administered on 07/28/18 08 :45; Start 07/21/18 at 16:30 Fentanyl Citrate (Fentanyl 2ml Vial) 50 mcg PRN Q2HR PRN IV SEVERE PAIN; Start 07/21/18 at 22:30 Morphine Sulfate (Morphine Sulfate) 2 mg PRN Q2HR PRN IV MODERATE PAIN Last administered on 07/24/18 12:13; Start 07/21/18 at 22:30 Sodium Chloride 1,000 ml @ 100 mls/hr Q10H IV Last administered on 07/27/18 09:11; Start 07/21/18 at 22:30; Stop 07/27/18 at 11:38; Status DC Famotidine (Pepcid Vial) 20 mg BID IVP Last administered on 07/25/18 08:41; Start 07/22/18 at 21:00; Stop 07/25/18 at 10:46; Status DC Levetiracetam 500 mg/Dextrose 105 ml @ 420 mls/hr Q12HR IV Last administered on 07/25/18 08:41; Start 07/23/18 at 13:00; Stop 07/25/18 at 21:58; Status DC Lactobacillus Rhamnosus (Culturelle) 1 cap BID PO Last administered on 08:46; Start 07/27/18 at 21:00 Hydrochlorothiazide (Microzide) 12.5 mg DAILY PO Last administered on 08:45; Start 07/27/18 at 12:30 Active Scripts Active Oxcarbazepine 300 Mg Tablet 900 Mg PO BID 30 Days Hydrocodone-Apap 5-325 (Hydrocodone Bit/Acetaminophen) 1 Each Tablet 1 Tab PO PRN Q4HRS PRN 14 Days Ondansetron Odt (Ondansetron) 4 Mg Tab.rapdis 4 Mg PO PRN Q6HRS PRN 14 Days Reported Advair 250-50 Diskus (Fluticasone/Salmeterol) 1 Each Disk.w.dev 1 Puff IH BID Proair Hfa Inhaler (Albuterol Sulfate) 8.5 Gm Hfa.aer.ad 1 Puff INH PRN Q6HRS PRN Miralax (Polyethylene Glycol 3350) 17 Gm Powd.pack 1 Packet PO BID Zyrtec (Cetirizine Hcl) 10 Mg Tablet 1 Tab PO DAILY Atorvastatin Calcium 20 Mg Tablet 20 Mg PO HS Topiramate 100 Mg Tablet 1 Tab PO BID Lisinopril-Hctz 10-12.5 Mg Tab (Lisinopril/Hydrochlorothiazide) 1 Each Tablet 1 Tab PO DAILY Vitals/I & O Vital Sign - Last 24 Hours 07/27/18 07/27/18 07/27/18 07/27/18 15:00 15:38 19:00 19:42 Temp 97.9 98.1 97.9 98.1 Pulse 86 97 Resp 16 18 B/P (MAP) 126/83 (97) 116/74 (88) Pulse Ox 100 98 98 O2 Delivery Room Air Nasal Cannula Nasal Cannula Nasal Cannula O2 Flow Rate 2.0 2.0 2.0 07/27/18 07/27/18 07/28/18 07/28/18 20:00 23:00 03:00 07:00 Temp 98.2 97.7 97.5 98.2 97.7 97.5 Pulse 82 76 94 Resp 18 18 18 B/P (MAP) 122/83 (96) 119/78 (92) 121/85 (97) Pulse Ox 97 100 100 O2 Delivery Room Air Nasal Cannula Nasal Cannula O2 Flow Rate 2.0 2.0 07/28/18 07/28/18 07/28/18 07/28/18 07:15 07:22 08:46 11:00 Temp 97.7 97.7 Pulse 94 84 Resp 18 B/P (MAP) 121/85 117/79 (92) Pulse Ox 99 100 O2 Delivery Room Air Nasal Cannula O2 Flow Rate 2.0 2.0 07/28/18 11:22 Pulse Ox 98 O2 Delivery Nasal Cannula O2 Flow Rate 2.0 Intake and Output 07/27/18 07/27/18 07/28/18 15:00 23:00 07:00 Intake Total 1000 ml Balance 1000 ml SAVAGE SIDHU MD Jul 28, 2018 13:14
[2018-07-28 15:00] VITALS: BP 118/79
[2018-07-28 19:00] VITALS: BP 116/67
[2018-07-28] MEDS: ATORVASTATIN CALCIUM 20 MG TABLET PO SCH (20:49)
[2018-07-28 22:48] VITALS: BP 134/87
[2018-07-29] VITALS (10 sets, daily range): BP systolic 125–144; BP diastolic 78–94
[2018-07-29] MEDS ORDERED: PROCHLORPERAZINE 10 MG/2 ML VIAL. IV PRN (07:00)
[2018-07-29] MEDS ORDERED: HYDROmorphone 2 MG/ML VIAL IV PRN (07:00)
[2018-07-29] MEDS ORDERED: MORPHINE SULFATE 2 MG/ML VIAL. IV PRN (07:00)
[2018-07-29] MEDS ORDERED: LIDOCAINE 1% PF 2 ML VIAL. ID PRN (07:00)
[2018-07-29] MEDS ORDERED: IV RINGERS,LACTATED 1000ML 1,000 ML IV SCH (07:00)
[2018-07-29] MEDS: IPRATRPIUM/ALBUTEROL 0.5/2.5MG 3 ML NEBU. NEB SCH ×3 (07:04→15:02)
[2018-07-29] MEDS: POTASSIUM CHLORIDE 20 MEQ TABLET.ER. PO SCH (08:00)
[2018-07-29] MEDS: LACTOBACILLUS RHAMNOSUS GG 1 CAPSULE. PO SCH (08:54)
[2018-07-29] MEDS: ENOXAPARIN 40 MG/0.4 ML SYRINGE. SQ SCH (08:55)
[2018-07-29] MEDS: TOPIRAMATE 25 MG TABLET. PO SCH (09:00)
[2018-07-29] MEDS: LISINOPRIL 10 MG TABLET PO SCH ×2 (09:00→18:39)
[2018-07-29] MEDS: CETIRIZINE HCL 10 MG TABLET. PO SCH (09:00)
[2018-07-29] MEDS: CLARITHROMYCIN 500 MG TABLET. PO SCH (09:00)
[2018-07-29] MEDS: hydroCHLOROthiazide 12.5 MG CAPSULE PO SCH ×2 (09:00→18:39)
[2018-07-29] MEDS: POLYETHYLENE GLYCOL 3350 17 GM PACKET. PO SCH (09:00)
[2018-07-29] MEDS: AMOXICILLIN 250 MG CAPSULE. PO SCH (09:00)
[2018-07-29] MEDS: OXcarbazepine 300 MG TABLET PO SCH (09:00)
--- NOTE | 2018-07-29 10:15 | PDOC ---
Subjective: Subjective: Has been NPO for port placement but says she might get to go home after. Objective: Vital Signs: Vital Signs Date Time Temp Pulse Resp B/P (MAP) Pulse Ox O2 Delivery O2 Flow Rate FiO2 07/29/18 08:46 87 Room Air 07/29/18 07:05 2.0 07/29/18 07:00 97.5 78 18 125/78 (94) 97.5 PE: GEN: NAD LUNGS: CTAB HEART: RRR ABD: S/ND/NT NEURO/PSYCH: A & O 3 A/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 pylori - tolerating Prevpac -- DC per primary - discussed finishing H. pylori treatment and confirming w/ breath test later on. She has a lot of questions about Miralax - we discussed this is okay to continue as needed and how she can adjust the dose. ARVIND HUERTA Jul 29, 2018 10:15
[2018-07-29] MEDS ORDERED: LIDOCAINE 1% PF 30 ML VIAL. ONE (11:06)
[2018-07-29] MEDS ORDERED: HEPARIN SODIUM 5,000 UNIT in IV NORMAL SALINE 500ML BAG 500 ML IRR ONE (11:30)
--- NOTE | 2018-07-29 12:32 | PDOC3 ---
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 Nonobstructing left intrarenal calculi. Enlarged fibroid uterus. Probable renal cysts. asthma HTN morbid obesity, BMI 42 h/o seizure transient metabolic encephalopathy gastric bx + h pylori Problems Medical Problems: (1) Abdominal pain Status: Acute (2) Bandemia Status: Acute (3) Leukocytosis Status: Acute (4) Nausea vomiting and diarrhea Status: Acute (5) UTI (urinary tract infection) Status: Acute Brief Hospital Course Allergies Allergies Coded Allergies Type Severity Reaction Last Updated Verified No Known Drug Allergies 07/12/18 No Vital Signs Vital Signs Date Time Temp Pulse Resp B/P (MAP) Pulse Ox O2 Delivery O2 Flow Rate FiO2 07/29/18 11:53 97.0 88 15 136/85 97 Nasal Cannula 97.0 07/29/18 07:05 2.0 Brief Hospital Course Ms. Mackey is a 47 old admit for abd pain, new cancer diagnosis, w/u and surg listed above, time to recover, then DC home Discharge Information Condition at Discharge: Improved Follow Up: Weeks Disposition/Orders: D/C to Home Scheduled Atorvastatin Calcium (Atorvastatin Calcium) 20 Mg Tablet, 20 MG PO HS for FOR CHOLESTEROL, #30 Ref 0 (Reported) Entered as Reported by: EMILIANO RAMIREZ on 07/12/181552 Last Taken: Unknown Dose on 07/11/18 2100 Last Action: Continued on 1558 by EMILIANO RAMIREZ Cetirizine Hcl (Zyrtec) 10 Mg Tablet, 1 TAB PO DAILY, #30 Ref 2 (Reported) Entered as Reported by: EMILIANO RAMIREZ on 07/12/18 155 Last Taken: Unknown Dose on 07/11/18 0900 Last Action: Continued on 1558 by EMILIANO RAMIREZ Fluticasone/Salmeterol (Advair 250-50 Diskus) 1 Each Disk.w.dev, 1 PUFF IH BID, #3 Ref 3 (Reported) Entered as Reported by: LORNA ISLAS on 07/16/181626 Last Action: New Order on 07/16/181626 by LORNA ISLAS Lisinopril/Hydrochlorothiazide (Lisinopril-Hctz 10-12.5 Mg Tab) 1 Each Tablet, 1 TAB PO DAILY, #90 Ref 3 (Reported) Entered as Reported by: BUBBA PRABHAKAR on 07/12/18 08 Last Taken: UNKNOWN on 07/11/18 0900 Last Action: Converted on 07/12/181558 by EMILIANO RAMIREZ Oxcarbazepine (Oxcarbazepine) 300 Mg Tablet, 900 MG PO BID for 30 Days, #180 Prescribed by: RAJAT OROURKE MD on 07/21/18 1359 Polyethylene Glycol 3350 (Miralax) 17 Gm Powd.pack, 1 PACKET PO BID, #30 Ref 3 ( Reported) Entered as Reported by: EMILIANO RAMIREZ on 07/12/181552 Last Taken: Unknown Dose on 07/11/18 2100 Last Action: Converted on 1558 by EMILIANO RAMIREZ Topiramate (Topiramate) 100 Mg Tablet, 1 TAB PO BID, #60 Ref 1 (Reported) Entered as Reported by: EMILIANO RAMIREZ on 07/12/181552 Last Taken: Unknown Dose on 07/11/18 0900 Last Action: Edited on 07/12/181708 by DARCY GORDON [facility] Scheduled PRN Albuterol Sulfate (Proair Hfa Inhaler) 8.5 Gm Hfa.aer.ad, 1 PUFF INH PRN Q6HRS PRN for SHORTNESS OF BREATH, Ref 0 (Reported) Entered as Reported by: LORNA ISLAS on 07/16/181626 Last Action: New Order on 07/16/181626 by LORNA ISLAS Hydrocodone Bit/Acetaminophen (Hydrocodone-Apap 5-325 ) 1 Each Tablet, 1 TAB PO PRN Q4HRS PRN for PAIN MODERATE TO SEVERE for 14 Days, #40 Prescribed by: RAJAT OROURKE MD on 07/21/18 1359 Ondansetron (Ondansetron Odt) 4 Mg Tab.rapdis, 4 MG PO PRN Q6HRS PRN for NAUSEA/ VOMITING for 14 Days, #40 Prescribed by: RAJAT OROURKE MD on 07/21/18 1359 Patient Instructions Patient Instructions Port placed DC plan to f/u with [facility] for eval/chemo > 30 min face to face SAVAGE SIDHU MD Jul 29, 2018 12:32
[2018-07-29] MEDS ORDERED: fentaNYL PF VIAL 100 MCG/2 ML VIAL ONE (12:55)
[2018-07-29] MEDS ORDERED: PROPOFOL 20 ML IV ONE ×2 (12:55→13:43)
[2018-07-29] MEDS ORDERED: ONDANSETRON PF 4 MG/2 ML VIAL. ONE (13:43)
[2018-07-29] MEDS ORDERED: DEXAMETHASONE SOD PHOS 20 MG/5 ML VIAL. ONE (13:43)
[2018-07-29] MEDS ORDERED: SEVOFLURANE 61 TO 120 MINUTES. IH ONE (14:01)
--- NOTE | 2018-07-29 14:18 | PDOC4 ---
Operative Note Operative Note Operative Note: Preoperative Diagnosis: Colon cancer Postoperative Diagnosis: Same Procedure: Placement of Power Port-A-Cath using SonoSite guidance Surgeon: Sylvain Anesthesia: Gen. EBL: 20 mL Specimen: None Drains: None Complications: None Indication: The patient is a 47 year old female who was recently diagnosed with colon cancer. A request was made for placement of a Port-A-Cath to allow for chemotherapy treatment. The details and risks of the procedure were discussed. The risks include bleeding, infection, vessel injury, pneumothorax, pain, anesthetic risk, port, catheter or tubing malfunction or dysfunction, potential need for additional surgery or procedure. The patient understands and would like to proceed. Description: The patient was placed supine on the operating table and general anesthesia was performed. The bilateral neck and chest were prepped with ChloraPrep and draped in a standard surgical manner. With SonoSite ultrasound guidance the right internal jugular vein was readily identified and appeared patent. Entry was made into the vein with the skinny introducer needle under ultrasound guidance. The skinny guidewire passed readily into the central venous system. A small incision was made at the skin exit site. The skinny sheath was then placed over the guidewire. The larger guidewire was then placed within the sheath into the central venous system. Intraoperative fluoroscopy confirmed good position of the guidewire in the central venous system. The dilator and sheath were then placed over the guidewire. The catheter portion was then inserted into the central venous system and visualized using fluoroscopy. A separate right upper chest skin incision was made with a scalpel. A subcutaneous pocket was developed with cautery of sufficient size to accommodate the port. The catheter was then tunneled subcutaneously to the level of the newly formed pocket. Using fluoroscopy the catheter was positioned with the tip in the distal superior vena cava. The catheter was then cut and assembled to the port. The port was then secured to the chest wall with two 2-0 Prolene sutures. Using the Tolentino needle the port readily aspirated and flushed without difficulty. Fluoroscopy confirmed good positioning of the catheter with no twists or kinks. The subcutaneous tissue was approximated with 3-0 Vicryl. The skin was then closed with 4-0 Monocryl. A sterile OpSite dressing was then applied. The patient tolerated the procedure well and was sent to the recovery room in stable condition. At the end of the case all counts were correct. ROSHAN MANN MD Jul 29, 2018 14:18
--- NOTE | 2018-07-29 15:52 | RAD ---
Portable chest, 07/29/2018: HISTORY: Check Port-A-Cath placement Comparison is made to a study from 07/21/2018. A right Port-A-Cath has been placed with its tip lying in the superior vena cava. The heart size and pulmonary vascularity are normal. No pulmonary infiltrate is seen. There is no evidence of pleural fluid or pneumothorax. IMPRESSION: 1. The right Port-A-Cath extends into the superior vena cava. 2. No acute cardiopulmonary abnormality is detected. Electronically signed by: Yunior Lorenzana MD (07/29/2018 3:49 PM) [facility]
[2018-07-29] MEDS: PANTOPRAZOLE 40 MG TABLET.DR. PO SCH (16:57)
[2018-07-29] MEDS: HYDROcodone/APAP 5/325MG 1 TAB TABLET PO PRN (18:38)
--- NOTE | 2018-07-31 15:21 | RAD ---
EXAM: Chest, 3 views. HISTORY: Port catheter placement. COMPARISON: None. FINDINGS: 3 fluoroscopic images of the chest are obtained. There is interval placement of a right internal jugular port catheter with the tip in the superior vena cava. The total fluoroscopy time is not included on the submitted images. IMPRESSION: Port catheter with the tip in the superior vena cava. Electronically signed by: Graciela Mancini MD (07/31/2018 3:17 PM) [facility]
== END 2018-07-29 18:52 | disposition home or self-care (01) | DRG 853 ==
LOC: ER 08:22 → 5 SOUTH 12:24 → 4 NORTH 07-15 10:31
PROVIDERS: ADMIT Internal Medicine; ATTEND Internal Medicine
PROC: 0DB98ZX Excision of Duodenum, Via Natural or Artificial Opening Endoscopic, Diagnostic (ICD-10-PCS; 2018-07-14)
PROC: 0DB68ZX Excision of Stomach, Via Natural or Artificial Opening Endoscopic, Diagnostic (ICD-10-PCS; 2018-07-14)
PROC: 0DBH8ZX Excision of Cecum, Via Natural or Artificial Opening Endoscopic, Diagnostic (ICD-10-PCS; principal; 2018-07-14 07:30)
PROC: 0DTF0ZZ Resection of Right Large Intestine, Open Approach (ICD-10-PCS; 2018-07-14 07:30)
PROC: 0JH63XZ Insertion of Tunneled Vascular Access Device into Chest Subcutaneous Tissue and Fascia, Percutaneous Approach (ICD-10-PCS; 2018-07-29)
PROC: 02HV33Z Insertion of Infusion Device into Superior Vena Cava, Percutaneous Approach (ICD-10-PCS; 2018-07-29)
PROC: B5181ZA Fluoroscopy of Superior Vena Cava using Low Osmolar Contrast, Guidance (ICD-10-PCS; 2018-07-29)
PROC: B548ZZA Ultrasonography of Superior Vena Cava, Guidance (ICD-10-PCS; 2018-07-29)
DX: A41.9 Sepsis, unspecified organism (principal); N17.0 Acute kidney failure with tubular necrosis; G93.41 Metabolic encephalopathy; C18.0 Malignant neoplasm of cecum; N39.0 Urinary tract infection, site not specified; Z68.41 Body mass index [BMI] 40.0-44.9, adult; K52.9 Noninfective gastroenteritis and colitis, unspecified; I10 Essential (primary) hypertension; K29.70 Gastritis, unspecified, without bleeding; B96.81 Helicobacter pylori [H. pylori] as the cause of diseases classified elsewhere; D25.9 Leiomyoma of uterus, unspecified; D64.9 Anemia, unspecified; E66.01 Morbid (severe) obesity due to excess calories; E78.5 Hyperlipidemia, unspecified; F03.90 Unspecified dementia, unspecified severity, without behavioral disturbance, psychotic disturbance, mood disturbance, and anxiety; F17.210 Nicotine dependence, cigarettes, uncomplicated; G40.909 Epilepsy, unspecified, not intractable, without status epilepticus; I87.8 Other specified disorders of veins; K21.9 Gastro-esophageal reflux disease without esophagitis; K29.80 Duodenitis without bleeding; K42.9 Umbilical hernia without obstruction or gangrene; K59.00 Constipation, unspecified; K80.20 Calculus of gallbladder without cholecystitis without obstruction; J30.9 Allergic rhinitis, unspecified; N20.0 Calculus of kidney; Z53.31 Laparoscopic surgical procedure converted to open procedure; Z80.0 Family history of malignant neoplasm of digestive organs; Z83.3 Family history of diabetes mellitus; Z85.038 Personal history of other malignant neoplasm of large intestine; Z87.442 Personal history of urinary calculi; Z87.59 Personal history of other complications of pregnancy, childbirth and the puerperium; Z98.891 History of uterine scar from previous surgery; Z79.899 Other long term (current) drug therapy
CPT/HCPCS: 36415; 36556; 45380; 45385; 71045; 71260; 74022; 74177; 80048; 80053; 80307; 81001; 81025; 82378; 82728; 83540; 83550; 83605; 83690; 83735; 85007; 85025; 85651; 87086; 88304; 88305; 88309; 88331; 88341; 88342; 94640; 94760; 95816; 96361; 96365; 96372; 96375; A7015; C1788; J0171; J0500; J0690; J0744; J0780; J1100; J1644; J1650; J1756; J1885; J1953; J2001; J2250; J2270; J2370; J2405; J2704; J2710; J3010; J3490; J7030; J7040; J7120; J7613; J7620; Q0162; Q9967; S0028; 99285-25; G0479

== ENCOUNTER 2021-05-27 03:40 | Emergency (ER) | payer OTHER ==
[~2021-05-27] VITALS: Ht 160 cm; Wt 113.6 kg
[~2021-05-27 03:40] MED LIST: ALBU2.5V8 INH; ATOR20TA58 PO; CETI10TA74 PO; FLUT1DIS3 IH; HYDR-2761 PO; LISI1TAB23 PO; LUBI8CAP4 PO; ONDA4TAB12 PO; OXCA300T19 PO; POLY17PO29 PO; TOPI100T8 PO; TOPI25TA7 PO
--- NOTE | 2021-05-27 04:05 | EKG ---
[facility] [address] [place] [address] Test Date: 2021-05-27 Test Time: 04:02:16 Pat Name: ROSE JASON Department: Room: Gender: F Warehouse Operations Associate: : 1970 Requested By: LOGAN CEJA Order Number: [id number] Reading MD: Measurements Intervals Lawrence Rate: 112 P: 1 WA: 158 QRS: -17 QRSD: 88 T: 22 QT: 372 QTc: 510 Interpretive Statements SINUS TACHYCARDIA LEFTWARD AXIS LEFT VENTRICULAR HYPERTROPHY ABNORMAL ECG RI6.01 No previous ECG available for comparison
--- NOTE | 2021-05-27 04:09 | PHYS DOC ---
Past Medical History Past Medical History: Hypertension, Seizure Additional Past Medical Histor: ulcers (LOGAN CEJA MD) Past Surgical History: (LOGAN CEJA MD) Smoking Status: Never Smoker Alcohol Use: None Drug Use: None (LOGAN CEJA MD) General Adult EDM: Chief Complaint: MULTIPLE COMPLAINTS HPI: HPI: Patient is a 50 year old female with history of hypertension, hyperlipidemia, diabetes who presents with 2 days of cough, sore throat, fever to 101.6 F, poor appetite, nausea/vomiting, and diarrhea. No sick contacts. Not vaccinated for Covid. No chest pain or abdominal pain. No bloody stools. No dysuria or urgency. (LOGAN CEJA MD) Review of Systems: Review of Systems: Constitutional: + Generalized fatigue, fever, chills. [] Eyes: Denies change in visual acuity. [] HENT: Denies nasal congestion or sore throat. [] Respiratory: + Cough, shortness of breath.. [] Cardiovascular: Denies chest pain or edema. [] GI: + N/V, diarrhea. Denies abdominal pain.. [] : Denies dysuria. [] Musculoskeletal: Denies back pain or joint pain. [] Integument: Denies rash. [] Neurologic: Denies headache, focal weakness or sensory changes. [] Endocrine: Denies polyuria or polydipsia. [] Lymphatic: Denies swollen glands. [] Psychiatric: Denies depression or anxiety. [] (LOGAN CEJA MD) Heart Score: C/O Chest Pain: No Risk Factors: Risk Factors: DM, Current or recent (<one month) smoker, HTN, HLP, family history of CAD, obesity. Risk Scores: Score 0 - 3: 2.5% MACE over next 6 weeks - Discharge Home Score 4 - 6: 20.3% MACE over next 6 weeks - Admit for Clinical Observation Score 7 - 10: 72.7% MACE over next 6 weeks - Early Invasive Strategies (LOGAN CEJA MD) C/O Chest Pain: N/A (JENNIFER RAI DO) Family History: Family History: No pertinent family history (LOGAN CEJA MD) Current Medications: Current Medications Medications (Trade) Dose Ordered Sig/Ashia Start Time Stop Time Status Last Admin Dose Admin Ondansetron HCl (Zofran) 4 mg 1X ONCE 05/27/21 04:15 05/27/21 04:16 UNV Sodium Chloride 1,000 ml @ 1,000 mls/hr 1X ONCE 05/27/21 04:15 05/27/21 05:14 UNV (LOGAN CEJA MD) Allergies: Allergies: Allergies Coded Allergies Type Severity Reaction Last Updated Verified No Known Drug Allergies 07/12/18 No (LOGAN CEJA MD) Physical Exam: PE: Constitutional: Well developed, well nourished, no acute distress, non-toxic appearance. [] HENT: Normocephalic, atraumatic, bilateral external ears normal, slightly dry mucous membranes. no oral exudates, nose normal. [] Eyes: PERRLA, EOMI, conjunctiva normal, no discharge. [] Neck: Normal range of motion, no tenderness, supple, no stridor. [] Cardiovascular: Tachycardic. Regular rhythm, no murmur [] Lungs & Thorax: Bilateral breath sounds clear to auscultation [] Abdomen: Bowel sounds normal, soft, no tenderness, no masses, no pulsatile masses. [] Skin: Warm, dry, no erythema, no rash. [] Back: No tenderness, no CVA tenderness. [] Extremities: No tenderness, no cyanosis, no clubbing, ROM intact, no edema. [] Neurologic: Alert and oriented X 3, normal motor function, normal sensory function, no focal deficits noted. [] Psychologic: Affect normal, judgement normal, mood normal. [] (LOGAN CEJA MD) EKG: EKG: Sinus rhythm. Rate 112. Left axis deviation. LVH. Some baseline wander. Allowing for that, no acute ischemic changes identified. [] (LOGAN CEJA MD) Radiology/Procedures: Radiology/Procedures: CXR [] Impression: [facility] [address] [place] [address] IMAGING REPORT Signed PATIENT: ROSE JASON ACCOUNT: [id number] : 1970 LOCATION: ER AGE: 50 SEX: F EXAM STATUS: PRE ER ORD. PHYSICIAN: LOGAN CEJA MD REASON: sob PROCEDURE: CHEST AP ONLY EXAMINATION: Chest radiograph. VIEWS: Single view COMPARISON: None INDICATION:50 years, Female, shortness of breath. FINDINGS: Normal cardiomediastinal silhouette. No focal consolidation. No pleural effusion or pneumothorax. No acute osseous process. IMPRESSION: No acute cardiopulmonary process. Electronically signed by: Tabitha Medina MD (05/27/2021 4:16 AM) [facility] DICTATED and SIGNED BY: TABITHA MEDINA MD DATE: 05/27/21 [id number] (LOGAN CEJA MD) Course & Med Decision Making: Course & Med Decision Making Pertinent Labs and Imaging studies reviewed. (See chart for details) Patient 50-year-old female with history of HTN, HLD, DM who presents with 2 days of multiple complaints including low-grade fevers 101.6 F, sore throat, cough, and/V, diarrhea, and generalized fatigue. On arrival is slightly tachycardic and mucous membranes are slightly dry. Is afebrile here and hemodynamically stable. Satting well on room air. No evidence of respiratory distress. She is not vaccinated for Covid, and certainly should be a PUI. Covid ordered. We will evaluate with chest x-ray as well. EKG is nonischemic. No chest pain. Do not feel that she requires troponin for evaluation of ACS. We will check CBC, CMP to evaluate for cell counts electrolytes. We will treat dehydration with IVF, and nausea with Zofran. Could potentially be a candidate for discharge pending the results of her tests and response to IVF. 0409 Rapid COVID is positive. Fortunately is not hypoxic and has normal respiratory exam and CXR. Difficulty with IV access has delayed fluids and labs. Will be signed out to Dr. Rai, my oncoming colleague, pending labs and response to IVF. 0534 (LOGAN CEJA MD) Course & Med Decision Making Patient is a 50-year-old female who present to ER with fever, cough, body ache, nausea vomiting. Patient was tested positive for COVID-19. Chest x-ray did not show any acute problem. Her oxygen saturation is 96 to 97% on room air. Patient was found to be mildly dehydrated, patient was given IV nausea medication and IV fluid. Patient was resting in the room, she felt much better. Patient would like to be discharged home. Patient will be discharged home with COVID-19 infection diagnosis. She was recommended to quarantine at home, return if she has worsening symptoms. Patient was amenable to plan of care (JENNIFER RAI DO) Marcie Disclaimer: Marcie Disclaimer: This electronic medical record was generated, in whole or in part, using a voice recognition dictation system. (LOGAN CEJA MD) Departure Departure Impression: Primary Impression: COVID-19 Disposition: 01 HOME / SELF CARE / HOMELESS Condition: IMPROVED Referrals: JOSE ANGEL BLOOM (PCP) FOLLOW UP WITH YOUR DOCTOR NEEDED Patient Instructions: Viral Syndrome Additional Instructions: You have been tested for or diagnosed with COVID-19. It is an infection caused by a new type of coronavirus. COVID-19 will cause cold-like or mild flu symptoms in most. It can cause more severe symptoms like problems breathing in some. There is no treatment for COVID-19. The body will clear the infection over time. Self-care will help to ease discomfort. Steps to Take: Self-Care Rest as needed. Healthy habits may help you feel better. Steps include: Choose healthy foods including fruits and vegetables. Drink water throughout the day. Get plenty of sleep each night. If you smoke, try to quit. It may ease breathing. Avoid alcohol. Keep Others Healthy The virus can spread to others. Droplets are released every time you sneeze or cough. The droplets can get into the mouth, nose, or eyes of people near you and lead to infection. To lower the chances of spreading COVID-19 to others: Stay at home until your doctor has said it is safe to leave. If you tested positive this will mean staying isolated until both of the following are true: At least 7 days have passed since the start of illness. You are free of fever for at least 72 hours without the use of medicine. During this time: - Avoid public areas, events, or transportation. Do not return to work or school until your doctor has said it is safe to do so. - Call ahead if you need to go to a medical center. Let them know you may have COVID-19. It will help them guide you where to go. They may also ask you to wear a facemask when you come to the office. - If you call for emergency medical services, let them know you may have COVID- 19. While at home: - Try to avoid close contact with others. Stay about 6 feet away. - If possible, spend most of your time in a separate room from others. - Use a face mask if you will be in close contact with others such as sharing a room or vehicle. - Have someone wipe down common surfaces in the home. Use household log deck tender every day on areas like doorknobs, counters, or sinks. - Cough or sneeze into a tissue. Throw the tissue away right after use. If a tissue is not available, cough or sneeze into your elbow. - Wash your hands often. Wash them after sneezing or coughing. Use soap and water and wash for at least 20 seconds. Alcohol based hand rug cleaner helper can be used if soap and water is not available. - Do not prepare food for others. Avoid sharing personal items like forks, spoons, or toothbrushes. - Avoid close contact with pets while you are sick. There is no evidence of the virus passing to pets. This is a safety step until more is known about this virus. Isolation can be frustrating. Social interaction can help. Keep in touch with friends and family through phone and tech options. You can still interact with others in your home, just keep a safe distance of about 6 feet. Follow-up: Your doctors office will check in with you to see if there are any changes in your health. You may be asked to keep track of symptoms to share with them. They will also let you know when you are clear to be in public again. Problems to Look Out For: Contact your doctor if your recovery is not going as you expect. Get emergency care if you have problems such as: - Trouble breathing - Nonstop chest pain or pressure - Changes in awareness, confusion, or problems waking - Lips or face have bluish color - Worsening of symptoms If you think you have an emergency, call for emergency medical services right away. As taken from [employer] [facility] Albuterol Sulfate (PROAIR HFA INHALER) 8.5 Gm Hfa.aer.ad 2 PUFF IH PRN Q4-6HRS PRN for wheezing for 21 Days, #1 INHALER 0 Refills Prov: JENNIFER RAI DO 05/27/21 Azithromycin (ZITHROMAX) 250 Mg Tablet 1 PKG PO UD, #6 TAB Prov: JENNIFER RAI DO 05/27/21 Prednisone (PREDNISONE) 20 Mg Tablet 1 TAB PO DAILY for 7 Days, #7 TAB Prov: JENNIFER RAI DO 05/27/21 LOGAN CEJA MD May 27, 2021 04:09 JENNIFER RAI DO May 27, 2021 08:27
--- NOTE | 2021-05-27 04:18 | RAD ---
EXAMINATION: Chest radiograph. VIEWS: Single view COMPARISON: None INDICATION:50 years, Female, shortness of breath. FINDINGS: Normal cardiomediastinal silhouette. No focal consolidation. No pleural effusion or pneumothorax. No acute osseous process. IMPRESSION: No acute cardiopulmonary process. Electronically signed by: Ian Medina MD (05/27/2021 4:16 AM) [facility]
[2021-05-27] MEDS ORDERED: ONDANSETRON PF 4 MG/2 ML VIAL. IVP ONE (04:30)
[2021-05-27] MEDS ORDERED: IV NORMAL SALINE 1000ML BAG 1,000 ML IV ONE (04:30)
[2021-05-27 05:44] LABS: BASO % 0 % (0-3); EOS % 0 % (0-3); HEMATOCRIT 39.4 % (36.0-47.0); HEMOGLOBIN 13.1 g/dL (12.0-15.5); LYMPH % 13 % (24-48); MEAN CORPUSCULAR HEMOGLOBIN 28 pg (25-35); MEAN CORPUSCULAR HGB CONC 33 g/dL (31-37); MEAN CORPUSCULAR VOLUME 82 fL (79-100); MONO # 0.8 x10^3/uL (0.0-1.1); MONO % 10 % (0-9); NEUT # 6.3 x10^3/uL (1.8-7.7); NEUT % 77 % (31-73); PLATELET COUNT 182 x10^3/uL (140-400); RED BLOOD COUNT 4.78 x10^6/uL (3.50-5.40); RED CELL DISTRIBUTION WIDTH 16.5 % (11.5-14.5); WHITE BLOOD COUNT 8.2 x10^3/uL (4.0-11.0)
[2021-05-27 05:53] LABS: CALCIUM 9.2 mg/dL (8.5-10.1); CREATININE 1.6 mg/dL (0.6-1.0); GFR 41.6; POTASSIUM 3.6 mmol/L (3.5-5.1)
[2021-05-27 05:58] LABS: ALBUMIN 3.4 g/dL (3.4-5.0); ALBUMIN/GLOBULIN RATIO 0.8 (1.0-1.7); TOTAL BILIRUBIN 0.2 mg/dL (0.2-1.0); TOTAL PROTEIN 7.8 g/dL (6.4-8.2)
[2021-05-27] MEDS ORDERED: methylPREDNISolone SOD SUCC PF 125 MG/2 ML VIAL. IV ONE (07:30)
[2021-05-27 08:05] VITALS: BP 128/78
[2021-05-27] MEDS ORDERED: ALBU2.5V8 IH (08:34)
[2021-05-27] MEDS ORDERED: PRED20TA PO (08:34)
[2021-05-27] MEDS ORDERED: AZIT250T PO (08:34)
== END 2021-05-27 09:32 | disposition home or self-care (01) ==
LOC: ER 03:40
DX: U07.1 COVID-19 (principal); I10 Essential (primary) hypertension; E11.9 Type 2 diabetes mellitus without complications; E78.5 Hyperlipidemia, unspecified
CPT/HCPCS: 36415; 71045; 80053; 83690; 85025; 87426; 93005; 96361; 96374; 96375; 99285; J2405; J2930; J7030; U0003; U0005